=== PATIENT | male | born 1940 | race Caucasian/White ===

== ENCOUNTER 2017-01-06 10:35 | Inpatient (IN) | payer MEDICARE, OTHER ==
--- NOTE | 2017-01-06 10:40 | ED Physician Chart ---
ED Chief Complaint/HPI - Patient Information Date Seen:: 01/06/17 Time Seen:: 10:40 Chief Complaint:: facial twitching History of Present Illness:: 76-year-old male with acute, intermittent, about every 1-2 minutes, severe, facial twitching and chewing that started about 5 AM this morning. Has associated left lateral gaze when the symptoms occur. Patient was given 5 mg of IV med as a lab en route by paramedics for possible seizure. Historian:: EMS, Medical Records Review:: Nurse's Note Reviewed, EMS run form Reviewed, Transfer documents Reviewed ED Review of Systems - Review of Systems Other: Review of systems is limited by patient's clinical condition Family Medical History - Family Member Mother History Unknown: Yes ED Physical Exam - Physical Examination Other:: INITIAL VITAL SIGNS: Reviewed by me GENERAL: Patient is lying on gurney HEAD: Head is normocephalic. No evidence of trauma. No scalp or facial swelling EYES: No scleral icterus bilaterally ENT: Oropharynx is clear of exudate and erythema NECK: Supple. No meningismus. No masses. No evidence of trauma. No cervical spine bony step-offs or crepitus to palpation RESPIRATORY: No tachypnea. Clear to auscultation bilaterally. CV: Regular rate and rhythm. No murmurs, rubs, or gallops ABDOMEN: Soft, non-distended. No masses BACK: No ecchymoses. No evidence of trauma EXTREMITIES: Normal to inspection and palpation. No deformity SKIN: Warm and dry. No obvious rash. No jaundice NEUROLOGIC: Face is symmetric. Withdraws to pain in all extremities. Does have intermittent chewing and slight twitch of the face. Unable to observe lateral gaze that was reported. ED Labs/Radiology/EKG Results - Lab Results Results: Lab Results 01/06/17 01/06/17 01/06/17 Range/Units 10:50 10:50 10:50 WBC 7.4 (4.8-10.8) Th/cmm RBC 2.67 L (3.80-5.80) Mil/cmm Hgb 8.7 L (12.6-17.4) gm/dL Hct 25.6 L (39.0-49.0) % MCV 96.0 (80-99) fl MCH 32.5 H (27.0-31.0) pg MCHC Differential 33.8 (28.0-36.0) pg RDW 13.1 (11.5-20.0) % Plt Count 127 L (150-400) Th/cmm MPV 7.5 fl Band Neutrophils % 2 (0-10) % Neutrophils (Manual) 86 H (40-80) % Lymphocytes 6 L (20-50) % Monocytes 5 (2-10) % Eosinophils 1 (0-5) % Platelet Estimate DECREASED PLATELETS (NORMAL) Platelet Morphology NORMAL (NORMAL) Anisocytosis 1+ RBC Morph Micro Appear ABNORMAL (NORMAL) PT 12.9 H (9.5-11.5) SECONDS INR 1.23 (0.5-1.4) PTT (Actin FS) 37.0 (26.0-38.0) SECONDS Sodium 143 (136-145) mEq/L Potassium 2.3 L* (3.5-5.1) mEq/L Chloride 125 H (98-107) mEq/L Carbon Dioxide 14.8 L (21.0-31.0) mEq/L Anion Gap 5.5 L (7.0-16.0) BUN 12 (7-25) mg/dL Creatinine 0.3 L (0.7-1.3) mg/dL Est GFR ( Amer) TNP Est GFR (Non-Af Amer) TNP BUN/Creatinine Ratio 40.0 Glucose 64 L (70-105) mg/dL Whole Bld Lactic Acid (0.60-1.99) mmol/L Calcium 4.6 L* (8.6-10.3) mg/dL Phosphorus (2.5-5.0) mg/dL Magnesium (1.9-2.7) mg/dL Total Bilirubin 0.3 (0.3-1.0) mg/dL AST 8 L (13-39) U/L ALT 4 L (7-52) U/L Alkaline Phosphatase 30 L (34-104) U/L Creatine Kinase 52 (30-223) U/L Total Protein 3.1 L (6.0-8.3) gm/dL Albumin 1.8 L (4.2-5.5) gm/dL Globulin 1.3 gm/dL Albumin/Globulin Ratio 1.4 (1.0-1.8) Triglycerides (<150) mg/dL Cholesterol (<200) mg/dL LDL Cholesterol Direct (75-193) mg/dL HDL Cholesterol (23-92) mg/dL TSH (0.34-5.60) uIU/ml Urine Source Urine Color Urine Clarity (CLEAR) Urine pH (4.6 - 8.0) Ur Specific [place] (1.005-1.030) Urine Protein (NEGATIVE) mg/dL Urine Glucose (UA) (NEGATIVE) mg/dL Urine Ketones (NEGATIVE) mg/dL Urine Blood (NEGATIVE) Urine Nitrate (NEGATIVE) Urine Bilirubin (NEGATIVE) Urine Urobilinogen (0.2 - 1.0) E.U./dL Ur Leukocyte Esterase (NEGATIVE) Urine RBC (0-5) /hpf Urine WBC (0-5) /hpf Ur Epithelial Cells (FEW) /lpf Urine Bacteria (NONE SEEN) /hpf 01/06/17 01/06/17 01/06/17 Range/Units 10:53 11:05 11:19 WBC (4.8-10.8) Th/cmm RBC (3.80-5.80) Mil/cmm Hgb (12.6-17.4) gm/dL Hct (39.0-49.0) % MCV (80-99) fl MCH (27.0-31.0) pg MCHC Differential (28.0-36.0) pg RDW (11.5-20.0) % Plt Count (150-400) Th/cmm MPV fl Band Neutrophils % (0-10) % Neutrophils (Manual) (40-80) % Lymphocytes (20-50) % Monocytes (2-10) % Eosinophils (0-5) % Platelet Estimate (NORMAL) Platelet Morphology (NORMAL) Anisocytosis RBC Morph Micro Appear (NORMAL) PT (9.5-11.5) SECONDS INR (0.5-1.4) PTT (Actin FS) (26.0-38.0) SECONDS Sodium (136-145) mEq/L Potassium (3.5-5.1) mEq/L Chloride (98-107) mEq/L Carbon Dioxide (21.0-31.0) mEq/L Anion Gap (7.0-16.0) BUN (7-25) mg/dL Creatinine (0.7-1.3) mg/dL Est GFR ( Amer) Est GFR (Non-Af Amer) BUN/Creatinine Ratio Glucose (70-105) mg/dL Whole Bld Lactic Acid 0.95 (0.60-1.99) mmol/L Calcium (8.6-10.3) mg/dL Phosphorus (2.5-5.0) mg/dL Magnesium (1.9-2.7) mg/dL Total Bilirubin (0.3-1.0) mg/dL AST (13-39) U/L ALT (7-52) U/L Alkaline Phosphatase (34-104) U/L Creatine Kinase (30-223) U/L Total Protein (6.0-8.3) gm/dL Albumin (4.2-5.5) gm/dL Globulin gm/dL Albumin/Globulin Ratio (1.0-1.8) Triglycerides 26 (<150) mg/dL Cholesterol 86 (<200) mg/dL LDL Cholesterol Direct 65 L (75-193) mg/dL HDL Cholesterol 25 (23-92) mg/dL TSH (0.34-5.60) uIU/ml Urine Source CATH Urine Color YELLOW Urine Clarity SL. CLOUDY (CLEAR) Urine pH 6.0 (4.6 - 8.0) Ur Specific [place] 1.025 (1.005-1.030) Urine Protein NEGATIVE (NEGATIVE) mg/dL Urine Glucose (UA) NEGATIVE (NEGATIVE) mg/dL Urine Ketones TRACE (NEGATIVE) mg/dL Urine Blood TRACE (NEGATIVE) Urine Nitrate NEGATIVE (NEGATIVE) Urine Bilirubin NEGATIVE (NEGATIVE) Urine Urobilinogen 1.0 (0.2 - 1.0) E.U./dL Ur Leukocyte Esterase TRACE H (NEGATIVE) Urine RBC 2-3 (0-5) /hpf Urine WBC 0-2 (0-5) /hpf Ur Epithelial Cells OCCASIONAL (FEW) /lpf Urine Bacteria NONE SEEN (NONE SEEN) /hpf 01/06/17 01/06/17 01/06/17 Range/Units 11:19 11:59 12:04 WBC (4.8-10.8) Th/cmm RBC (3.80-5.80) Mil/cmm Hgb (12.6-17.4) gm/dL Hct (39.0-49.0) % MCV (80-99) fl MCH (27.0-31.0) pg MCHC Differential (28.0-36.0) pg RDW (11.5-20.0) % Plt Count (150-400) Th/cmm MPV fl Band Neutrophils % (0-10) % Neutrophils (Manual) (40-80) % Lymphocytes (20-50) % Monocytes (2-10) % Eosinophils (0-5) % Platelet Estimate (NORMAL) Platelet Morphology (NORMAL) Anisocytosis RBC Morph Micro Appear (NORMAL) PT (9.5-11.5) SECONDS INR (0.5-1.4) PTT (Actin FS) (26.0-38.0) SECONDS Sodium (136-145) mEq/L Potassium (3.5-5.1) mEq/L Chloride (98-107) mEq/L Carbon Dioxide (21.0-31.0) mEq/L Anion Gap (7.0-16.0) BUN (7-25) mg/dL Creatinine (0.7-1.3) mg/dL Est GFR ( Amer) Est GFR (Non-Af Amer) BUN/Creatinine Ratio Glucose (70-105) mg/dL Whole Bld Lactic Acid (0.60-1.99) mmol/L Calcium (8.6-10.3) mg/dL Phosphorus 1.6 L (2.5-5.0) mg/dL Magnesium 1.2 L (1.9-2.7) mg/dL Total Bilirubin (0.3-1.0) mg/dL AST (13-39) U/L ALT (7-52) U/L Alkaline Phosphatase (34-104) U/L Creatine Kinase (30-223) U/L Total Protein (6.0-8.3) gm/dL Albumin (4.2-5.5) gm/dL Globulin gm/dL Albumin/Globulin Ratio (1.0-1.8) Triglycerides (<150) mg/dL Cholesterol (<200) mg/dL LDL Cholesterol Direct (75-193) mg/dL HDL Cholesterol (23-92) mg/dL TSH 0.39 (0.34-5.60) uIU/ml Urine Source Urine Color Urine Clarity (CLEAR) Urine pH (4.6 - 8.0) Ur Specific [place] (1.005-1.030) Urine Protein (NEGATIVE) mg/dL Urine Glucose (UA) (NEGATIVE) mg/dL Urine Ketones (NEGATIVE) mg/dL Urine Blood (NEGATIVE) Urine Nitrate (NEGATIVE) Urine Bilirubin (NEGATIVE) Urine Urobilinogen (0.2 - 1.0) E.U./dL Ur Leukocyte Esterase (NEGATIVE) Urine RBC (0-5) /hpf Urine WBC (0-5) /hpf Ur Epithelial Cells (FEW) /lpf Urine Bacteria (NONE SEEN) /hpf 01/06/17 Range/Units 12:32 WBC 10.1 D (4.8-10.8) Th/cmm RBC 3.64 L (3.80-5.80) Mil/cmm Hgb 12.0 L D (12.6-17.4) gm/dL Hct 35.3 L D (39.0-49.0) % MCV 97.0 (80-99) fl MCH 33.1 H (27.0-31.0) pg MCHC Differential 34.1 (28.0-36.0) pg RDW 13.1 (11.5-20.0) % Plt Count 159 D (150-400) Th/cmm MPV 7.6 fl Band Neutrophils % (0-10) % Neutrophils (Manual) (40-80) % Lymphocytes (20-50) % Monocytes (2-10) % Eosinophils (0-5) % Platelet Estimate (NORMAL) Platelet Morphology (NORMAL) Anisocytosis RBC Morph Micro Appear (NORMAL) PT (9.5-11.5) SECONDS INR (0.5-1.4) PTT (Actin FS) (26.0-38.0) SECONDS Sodium (136-145) mEq/L Potassium (3.5-5.1) mEq/L Chloride (98-107) mEq/L Carbon Dioxide (21.0-31.0) mEq/L Anion Gap (7.0-16.0) BUN (7-25) mg/dL Creatinine (0.7-1.3) mg/dL Est GFR ( Amer) Est GFR (Non-Af Amer) BUN/Creatinine Ratio Glucose (70-105) mg/dL Whole Bld Lactic Acid (0.60-1.99) mmol/L Calcium (8.6-10.3) mg/dL Phosphorus (2.5-5.0) mg/dL Magnesium (1.9-2.7) mg/dL Total Bilirubin (0.3-1.0) mg/dL AST (13-39) U/L ALT (7-52) U/L Alkaline Phosphatase (34-104) U/L Creatine Kinase (30-223) U/L Total Protein (6.0-8.3) gm/dL Albumin (4.2-5.5) gm/dL Globulin gm/dL Albumin/Globulin Ratio (1.0-1.8) Triglycerides (<150) mg/dL Cholesterol (<200) mg/dL LDL Cholesterol Direct (75-193) mg/dL HDL Cholesterol (23-92) mg/dL TSH (0.34-5.60) uIU/ml Urine Source Urine Color Urine Clarity (CLEAR) Urine pH (4.6 - 8.0) Ur Specific [place] (1.005-1.030) Urine Protein (NEGATIVE) mg/dL Urine Glucose (UA) (NEGATIVE) mg/dL Urine Ketones (NEGATIVE) mg/dL Urine Blood (NEGATIVE) Urine Nitrate (NEGATIVE) Urine Bilirubin (NEGATIVE) Urine Urobilinogen (0.2 - 1.0) E.U./dL Ur Leukocyte Esterase (NEGATIVE) Urine RBC (0-5) /hpf Urine WBC (0-5) /hpf Ur Epithelial Cells (FEW) /lpf Urine Bacteria (NONE SEEN) /hpf - Radiology Results Results: Single AP VIEW Portable Chest X-ray was interpreted independently and contemporaneously by Sj Mendez MD: No cardiomegaly Normal mediastinum No lung infiltrates No pneumothorax No soft tissue or bony abnormalities CT head without contrast NAD CT angiogram head NAD CT angiogram neck NAD - EKG Interpretations Comments:: 12-lead EKG Interpretation by Sj Mendez MD: Normal Sinus Rhythm with ventricular rate of 74 beats per minute Normal axis Borderline prolonged QT interval No acute ST or T wave changes. No obvious STEMI ED Assessment - Assessment Critical Care Time: 30 Excludes all billable procedures: Yes This condition life threatening/high prob of deterioration: Yes Assessment/Comments:: Critical Care Time: 30 minutes Treatments/Evaluations: Close monitoring and treatment of unstable vital signs, cardiorespiratory, and neurologic status, while maintaining tight balance of fluid, respiratory, and cardiac interventions. This time includes discussing the case with the patient and the patient's family. This time does not include all procedures stated elsewhere in this record. This time also includes reviewing old records, labs and radiological studies. This time includes examining and re-examining the patient. Additionally, this time also includes arranging care with admitting and consulting physicians. ED Septic Shock - . Is Septic Shock (SBP<90, OR Lactate>4 mmol\L) present?: No ED Reassessment (Disposition) - Reassessment Reassessment:: Patient arrived by paramedics. He received 5 mg of IV diazepam and some IV normal saline. There was still some intermittent facial twitching and chewing motion. No observation of the lateral gaze could be made here in the ER. The patient apparently normal has a baseline mental status where he is able to answer yes and no questions, however, on arrival he is averbal. His vital signs are good. Symptoms were first noticed at 5 AM this morning. He has arrived over 4-1/2 hours after onset of symptoms: Symptoms were first noticed. He is out of the TPA window at this time. Patient had temperature of 101.3 degrees Fahrenheit. Gave 650 mg of rectal Tylenol. Patient is severely hypocalcemic and hypomagnesemic. Also has anemia with hemoglobin 8.7. Potassium is 2.3. Magnesium 1.2. The patient has symptomatic hypocalcemia with tetany and jaw twitching. CT imaging of the head and neck and carotids are essentially unremarkable. Repeat hemoglobin showed some improvement. No concern for hemolytic anemia. This patient has multiple sclerosis. He has a fever. There is no infective source. Difficult to obtain a good history from the patient and he is altered and could not speak to us. Appears to be an exacerbation of his multiple sclerosis. The fevers would make sense with a multiple sclerosis exacerbation. The patient is taking prednisone every other day. We have given one dose of 1 g of IV Solu-Medrol. We are also giving 1 g of IV Rocephin for possible UTI. We will also administer 2 g of IV magnesium. 2 g of IV calcium gluconate and 40 mEq of IV potassium. Patient will need further workup and treatment. Discussed the case in detail with the admitting physician. Patient admitted for further workup and treatment. Given the severity of the hypokalemia and hypocalcemia and other electrolyte disturbances, this patient was at high risk for sudden cardiac deterioration and ultimately cardiac failure. There was need for critical care time on this patient. There was a total of 30 minutes of critical care time on this patient. Reassessment Condition:: Improved - Diagnosis Diagnosis:: Multiple sclerosis exacerbation Severe hypocalcemia Severe hypokalemia Hypophosphatemia Hypomagnesemia Fever - Patient Disposition Discharge/Transfer:: Acute Care w/in this hosp Admitted to:: Telemetry Admitting Medical Physician:: Antoni Tucker Time:: 12:42 Condition at Disposition:: Stable
[2017-01-06] MEDS ORDERED: Sodium Chloride 0.9% 1,000 ML IV ONE (10:44)
[2017-01-06 11:05] LABS: HEMATOCRIT 25.6 % (39.0-49.0); HEMOGLOBIN 8.7 gm/dL (12.6-17.4); MEAN CORPUSCULAR HEMOGLOBIN 32.5 pg (27.0-31.0); MEAN CORPUSCULAR HGB CONC 33.8 pg (28.0-36.0); MEAN PLATELET VOLUME 7.5 fl; PLATELET COUNT 127 Th/cmm (150-400); RED BLOOD COUNT 2.67 Mil/cmm (3.80-5.80); RED CELL DISTRIBUTION WIDTH 13.1 % (11.5-20.0); WHITE BLOOD COUNT 7.4 Th/cmm (4.8-10.8)
[2017-01-06] MEDS ORDERED: Potassium Phosphate 20 MMOLE in Sodium Chloride 0.9% 250 ML IV ONE (11:17)
[2017-01-06] MEDS ORDERED: POTASSIUM PHOSPHATE IV ONE (11:17)
[2017-01-06] MEDS ORDERED: SODIUM CHLORIDE IV ONE (11:17)
[2017-01-06 11:21] LABS: INR 1.23 (0.5-1.4); PROTHROMBIN TIME (TEST) 12.9 SECONDS (9.5-11.5)
[2017-01-06 11:23] LABS: URINE BILIRUBIN NEGATIVE (NEGATIVE); URINE BLOOD TRACE (NEGATIVE); URINE GLUCOSE (UA) NEGATIVE (NEGATIVE); URINE KETONE TRACE mg/dL (NEGATIVE); URINE PROTEIN NEGATIVE (NEGATIVE)
[2017-01-06 11:24] LABS: URINE COLOR YELLOW
[2017-01-06 11:25] LABS: ALB/GLOB RATIO 1.4 (1.0-1.8); ALKALINE PHOSPHATASE 30 U/L (34-104); ANION GAP 5.5 (7.0-16.0); BILIRUBIN,TOTAL 0.3 mg/dL (0.3-1.0); BUN - UREA NITROGEN 12 mg/dL (7-25); CALCIUM SERUM 4.6 mg/dL (8.6-10.3); CARBON DIOXIDE 14.8 mEq/L (21.0-31.0); CHLORIDE 125 mEq/L (98-107); CREATININE - SERUM 0.3 mg/dL (0.7-1.3); GLUCOSE 64 mg/dL (70-105); POTASSIUM SERUM 2.3 mEq/L (3.5-5.1); SGOT 8 U/L (13-39); SGPT/ALT 4 U/L (7-52); SODIUM SERUM 143 mEq/L (136-145)
[2017-01-06 11:28] LABS: URINE BACTERIA NONE SEEN /hpf (NONE SEEN); URINE EPITHELIAL CELLS OCCASIONAL /lpf (FEW); URINE WBC 0-2 /hpf (0-5)
[2017-01-06] MEDS ORDERED: IOHEXOL 300MG/ML 100 ML VIAL ONE (11:28)
[2017-01-06 11:32] LABS: CHOLESTEROL 86 mg/dL (<200); TRIGLYCERIDES 26 mg/dL (<150)
[2017-01-06 11:32] LABS: ANISOCYTOSIS 1+; BAND NEUTROPHILE 2 % (0-10); EOSINOPHIL 1 % (0-5); NEUTROPHILS 86 % (40-80); PLATELET ESTIMATE DECREASED PLATELETS (NORMAL); PLATELET MORPHOLOGY NORMAL (NORMAL); TOTAL CELLS COUNTED 100
[2017-01-06] MEDS ORDERED: IOHEXOL 350mg/mL 150mL IV ONE (11:41)
[2017-01-06] MEDS ORDERED: Mag Sulfate 2gm/50mL Premix 2 GM/50 ML BAG IV ONE (12:00)
[2017-01-06] MEDS ORDERED: Calcium Gluconate 2 GM in Sodium Chloride 0.9% 100 ML IV ONE (12:12)
[2017-01-06] MEDS ORDERED: cefTRIAXone 1 GM in Sodium Chloride 0.9% 50 ML IV ONE (12:20)
[2017-01-06] MEDS ORDERED: METHYLPREDNISOLONE SS IV ONE (12:22)
[2017-01-06] MEDS ORDERED: SODIUM CHLORIDE 0.9% IV ONE (12:22)
[2017-01-06 12:37] LABS: MEAN CORPUSCULAR HEMOGLOBIN 33.1 pg (27.0-31.0); MEAN CORPUSCULAR HGB CONC 34.1 pg (28.0-36.0); MEAN PLATELET VOLUME 7.6 fl; RED BLOOD COUNT 3.64 Mil/cmm (3.80-5.80); RED CELL DISTRIBUTION WIDTH 13.1 % (11.5-20.0)
[2017-01-06 12:42] LABS: WHITE BLOOD COUNT 10.1 Th/cmm (4.8-10.8)
[2017-01-06 12:43] LABS: HEMATOCRIT 35.3 % (39.0-49.0); PLATELET COUNT 159 Th/cmm (150-400)
--- NOTE | 2017-01-06 12:45 | Diagnostic Imaging Report ---
CT examination of the brain HISTORY: Facial which in left lateral gaze Total DLP equals 625 CTDI equals 34.8 Findings: Multiple contiguous thin section of the brain were obtained from the base of skull to the vertex without the administration of contrast material, no prior studies available for comparison. The study demonstrates prominence of cerebral sulci consistent with atrophy, periventricular ischemic white matter changes are noted. There is no evidence for hemorrhage midline shift or edema The visualized bony calvarium is intact the paranasal sinuses are well aerated. IMPRESSION: Atrophy, periventricular ischemic white matter changes long-standing etiology.
--- NOTE | 2017-01-06 12:58 | Diagnostic Imaging Report ---
Exam: CT carotid angiogram HISTORY: CVA, lateral gaze. Total DLP equals 235 CTDI equals 6.3 Findings: Multiple contiguous thin section of the extracranial/intracranial internal carotid artery circulation was obtained with administration of contrast material. The study demonstrates normal appearance of the common carotid arteries with normal external/internal carotid bifurcation no evidence for significant stenosis appreciated. The right vertebral arteries intact. The left vertebral arteries poorly visualized. Posterior communicating arteries are poorly seen The intracranial circulation appears to be normal. There is no evidence for cerebral lesions, mild atrophy is noted. There is normal appearance of the [place] of [place] of the anterior communicating arteries are poorly seen. If clinically indicated MRI examination might be helpful. IMPRESSION: 1. Essentially unremarkable examination of the extracranial carotid circulation, normal internal/external, carotid artery bifurcation.
[2017-01-06 13:42] LABS: BAND NEUTROPHILE 1 % (0-10); NEUTROPHILS 78 % (40-80); TOTAL CELLS COUNTED 100
[2017-01-06 13:43] LABS: ANISOCYTOSIS 1+; PLATELET ESTIMATE ADEQUATE (NORMAL); PLATELET MORPHOLOGY NORMAL (NORMAL)
--- NOTE | 2017-01-06 13:54 | Diagnostic Imaging Report ---
Exam: CT examination abdomen pelvis HISTORY: Abdominal pain Total DLP equals 739 CTDI equals 14.6 Findings: Multiple contiguous thin section abdomen pelvis obtained from lower thorax to the symphysis without the administration of the oral contrast material. Intravenous contrast was utilized. No prior studies available comparison. The study demonstrates normal aeration of lung parenchyma the bases The liver and spleen are normal. The kidneys concentrate and excrete contrast material normal fashion. Thinning of the renal cortex appreciated bilaterally may renal disease cannot be excluded. The adrenal glands are normal. The gallbladder is distended common bile duct distended up 6 mm No free fluid is noted. The pancreas poorly seen. There is evidence for significant distention of the colon with fecal impaction of the rectosigmoid junction and rectum. No urinary bladder is intact. Proximal distention small bowel large bowel loops distended with air appreciated. The urinary bladder demonstrates thickening of the bladder wall. Intraluminal calcification cannot be excluded area Prostate gland is enlarged. No abnormal adenopathy is noted. No free fluid appreciated. Bony structures demonstrate no evidence for lytic or blastic structures. Degenerative changes of lumbar sacral spine appreciated. IMPRESSION: 1. Severe fecal impaction the rectosigmoid junction and rectum. 2. Distention of proximal small bowel large bowel loops with air. 3. Distended gallbladder and common bile duct. Clinical correlation recommended.
[2017-01-06] MEDS ORDERED: Magnesium Hydroxide (MOM) 30 mL UDC PO PRN (14:58)
[2017-01-06] MEDS ORDERED: D5-0.45NS 1,000 ML IV SCH (14:58)
[2017-01-06] MEDS ORDERED: Albuterol/Ipratropium Neb 3 ML AERS HHN PRN (14:58)
[2017-01-06] MEDS: D5-0.45NS 1,000 ML IV SCH (15:21)
[2017-01-06] MEDS ORDERED: Non-Formulary Item 1 EA (Dextran 70/Hypromellose [Artificial Tears] 1 DROP) EACH EYE SCH (17:00)
[2017-01-06] MEDS ORDERED: Non-Formulary Item 1 EA (Amino Acids/Protein Hydrolys [Pro-Stat Awc Liquid Packet] 30 ML) PO SCH (17:00)
[2017-01-06 20:18] LABS: ALB/GLOB RATIO 1.7 (1.0-1.8); ALKALINE PHOSPHATASE 51 U/L (34-104); BUN - UREA NITROGEN 17 mg/dL (7-25); BUN/CREATININE RATIO 24.3; CALCIUM SERUM 8.4 mg/dL (8.6-10.3); CARBON DIOXIDE 21.3 mEq/L (21.0-31.0); CHLORIDE 110 mEq/L (98-107); CREATININE - SERUM 0.7 mg/dL (0.7-1.3); GLUCOSE 100 mg/dL (70-105); PHOSPHOROUS 4.1 mg/dL (2.5-5.0); SGOT 13 U/L (13-39); SGPT/ALT 9 U/L (7-52); SODIUM SERUM 137 mEq/L (136-145)
[2017-01-06 20:25] LABS: POTASSIUM SERUM 4.3 mEq/L (3.5-5.1)
[2017-01-06] MEDS: methylPREDNISolone SS 40 mg Vial IVP SCH (20:32)
[2017-01-07] MEDS: methylPREDNISolone SS 40 mg Vial IVP SCH ×3 (05:47→21:38)
--- NOTE | 2017-01-07 07:39 | History and Physical ---
History of Present Illness - HPI Chief Complaint: Facial Twitching HPI: 76 year old male who presents to [facility] ER from SNF for intermittent facial twitching and chewing that occurred yesterday prior to admission. The patient has a history of Multiple Sclerosis, dementia, and constipation. While in the ER patient was found to have several electrolyte imbalances. K+ 2.3. Hemoglobin 8.7 calcium 4.6 phosphorus 1.6 and Magnesium 1.2. She was given IV supplementation in the ER and was subsequently transferred to [facility] for further treatment. Patient was noted to be Altered. 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 unable to state due to mental status Social History Smoke: No Alcohol: None Drugs: None Lives: Alone - Medications Home Medications: Home Medication Medication Instructions Recorded Type Albuterol/Ipratropium Neb [Duoneb 3 ml HHN Q6HR PRN 01/06/17 History Neb] Amino Acids/Protein Hydrolys 30 ml PO BID 01/06/17 History [Pro-Stat Sugar Free Awc 30 ml] Ascorbic Acid [Vitamin C] 500 mg PO DAILY 01/06/17 History Bisacodyl [Dulcolax] 10 mg RC DAILY PRN 01/06/17 History Calcium Carb/Vit D 500mg/200U 1 tab PO DAILY 01/06/17 History [Oscal w/Vitamin D] Cyanocobalamin (Vitamin B-12) 500 mcg PO DAILY 01/06/17 History [B-12] Dextran 70/Hypromellose 1 drop EACH EYE BID 01/06/17 History [Artificial Tears] Docusate Sodium [Colace] 100 mg PO DAILY 01/06/17 History Magnesium Hydroxide [Milk of 30 ml PO Q6H PRN 01/06/17 History Magnesia] Multivitamin [Theragran] 1 tab PO DAILY 01/06/17 History Potassium Chloride ER [Klor-Con] 20 meq PO DAILY 01/06/17 History predniSONE [Deltasone] 5 mg PO Q48HR 01/06/17 History - Allergies Allergies/Adverse Reactions: Allergies Allergy/AdvReac Type Severity Reaction Status Date / Time No Known Allergies Allergy Verified 01/06/17 10:53 Review of Systems - Review of Systems Constitutional: Report: No Significant Eyes: Report: No Significant ENT: Report: No Significant Respiratory: Report: No Significant Cardiovascular: Report: No Significant Gastrointestinal: Report: No Significant Genitourinary: Report: No Significant Musculoskeletal: Report: No Significant Skin: Report: No Significant Neurological: Report: Weakness - Lab Results All Lab Results last 24 hours: Laboratory Last Values WBC 10.1 Th/cmm (4.8-10.8) D 01/06/17 12:32 RBC 3.64 Mil/cmm (3.80-5.80) L 01/06/17 12:32 Hgb 12.0 gm/dL (12.6-17.4) L D 01/06/17 12:32 Hct 35.3 % (39.0-49.0) L D 01/06/17 12:32 MCV 97.0 fl (80-99) 01/06/17 12:32 MCH 33.1 pg (27.0-31.0) H 01/06/17 12:32 MCHC Differential 34.1 pg (28.0-36.0) 01/06/17 12:32 RDW 13.1 % (11.5-20.0) 01/06/17 12:32 Plt Count 159 Th/cmm (150-400) D 01/06/17 12:32 MPV 7.6 fl 01/06/17 12:32 Band Neutrophils % 1 % (0-10) 01/06/17 12:32 Neutrophils (Manual) 78 % (40-80) 01/06/17 12:32 Lymphocytes 13 % (20-50) L 01/06/17 12:32 Monocytes 8 % (2-10) 01/06/17 12:32 Eosinophils 1 % (0-5) 01/06/17 10:50 Platelet Estimate ADEQUATE (NORMAL) 01/06/17 12:32 Platelet Morphology NORMAL (NORMAL) 01/06/17 12:32 Anisocytosis 1+ 01/06/17 12:32 RBC Morph Micro Appear ABNORMAL (NORMAL) 01/06/17 12:32 PT 12.9 SECONDS (9.5-11.5) H 01/06/17 10:50 INR 1.23 (0.5-1.4) 01/06/17 10:50 PTT (Actin FS) 37.0 SECONDS (26.0-38.0) 01/06/17 10:50 Sodium 137 mEq/L (136-145) 01/06/17 20:00 Potassium 4.3 mEq/L (3.5-5.1) D 01/06/17 20:00 Chloride 110 mEq/L (98-107) H 01/06/17 20:00 Carbon Dioxide 21.3 mEq/L (21.0-31.0) 01/06/17 20:00 Anion Gap 10.0 (7.0-16.0) 01/06/17 20:00 BUN 17 mg/dL (7-25) 01/06/17 20:00 Creatinine 0.7 mg/dL (0.7-1.3) 01/06/17 20:00 Est GFR ( Amer) TNP 01/06/17 20:00 Est GFR (Non-Af Amer) TNP 01/06/17 20:00 BUN/Creatinine Ratio 24.3 01/06/17 20:00 Glucose 100 mg/dL (70-105) 01/06/17 20:00 POC Glucose 92 MG/DL (70 - 105) 01/06/17 15:04 Whole Bld Lactic Acid 0.95 mmol/L (0.60-1.99) 01/06/17 10:53 Calcium 8.4 mg/dL (8.6-10.3) L 01/06/17 20:00 Phosphorus 4.1 mg/dL (2.5-5.0) 01/06/17 20:00 Magnesium 2.8 mg/dL (1.9-2.7) H 01/06/17 20:00 Total Bilirubin 1.0 mg/dL (0.3-1.0) 01/06/17 20:00 AST 13 U/L (13-39) 01/06/17 20:00 ALT 9 U/L (7-52) 01/06/17 20:00 Alkaline Phosphatase 51 U/L (34-104) 01/06/17 20:00 Creatine Kinase 52 U/L (30-223) 01/06/17 10:50 Total Protein 5.3 gm/dL (6.0-8.3) L 01/06/17 20:00 Albumin 3.3 gm/dL (4.2-5.5) L 01/06/17 20:00 Globulin 2.0 gm/dL 01/06/17 20:00 Albumin/Globulin Ratio 1.7 (1.0-1.8) 01/06/17 20:00 Triglycerides 26 mg/dL (<150) 01/06/17 11:19 Cholesterol 86 mg/dL (<200) 01/06/17 11:19 LDL Cholesterol Direct 65 mg/dL (75-193) L 01/06/17 11:19 HDL Cholesterol 25 mg/dL (23-92) 01/06/17 11:19 TSH 0.39 uIU/ml (0.34-5.60) 01/06/17 11:59 Urine Source CATH 01/06/17 11:05 Urine Color YELLOW 01/06/17 11:05 Urine Clarity SL. CLOUDY (CLEAR) 01/06/17 11:05 Urine pH 6.0 (4.6 - 8.0) 01/06/17 11:05 Ur Specific [place] 1.025 (1.005-1.030) 01/06/17 11:05 Urine Protein NEGATIVE mg/dL (NEGATIVE) 01/06/17 11:05 Urine Glucose (UA) NEGATIVE mg/dL (NEGATIVE) 01/06/17 11:05 Urine Ketones TRACE mg/dL (NEGATIVE) 01/06/17 11:05 Urine Blood TRACE (NEGATIVE) 01/06/17 11:05 Urine Nitrate NEGATIVE (NEGATIVE) 01/06/17 11:05 Urine Bilirubin NEGATIVE (NEGATIVE) 01/06/17 11:05 Urine Urobilinogen 1.0 E.U./dL (0.2 - 1.0) 01/06/17 11:05 Ur Leukocyte Esterase TRACE (NEGATIVE) H 01/06/17 11:05 Urine RBC 2-3 /hpf (0-5) 01/06/17 11:05 Urine WBC 0-2 /hpf (0-5) 01/06/17 11:05 Ur Epithelial Cells OCCASIONAL /lpf (FEW) 01/06/17 11:05 Urine Bacteria NONE SEEN /hpf (NONE SEEN) 01/06/17 11:05 Laboratory Results - last 24 hr 01/06/17 01/06/17 01/06/17 15:04 20:00 20:00 Sodium 137 Potassium 4.3 D Chloride 110 H Carbon Dioxide 21.3 Anion Gap 10.0 BUN 17 Creatinine 0.7 Est GFR ( Amer) TNP Est GFR (Non-Af Amer) TNP BUN/Creatinine Ratio 24.3 Glucose 100 POC Glucose 92 Calcium 8.4 L Phosphorus 4.1 Magnesium 2.8 H Total Bilirubin 1.0 AST 13 ALT 9 Alkaline Phosphatase 51 Total Protein 5.3 L Albumin 3.3 L Globulin 2.0 Albumin/Globulin Ratio 1.7 - Assessment Assessment: ALOC ... will order MRI head, CT head NAD, CT carotid NAD, neurology consult Acute MS exacerbation hypokalemia ... improved. K+ 4.3 hypocalcemia ... improved Ca+ hypophosphotemia ... improved Ph 4.1 hypomagnesemia ... improved Mg 2.8 dementia constipation ... GI consult. - Plan Plan: ALOC ... will order MRI head, CT head NAD, CT carotid NAD, neurology consult Acute MS exacerbation hypokalemia ... improved. K+ 4.3 hypocalcemia ... improved Ca+ hypophosphotemia ... improved Ph 4.1 hypomagnesemia ... improved Mg 2.8 dementia constipation ... GI consult.
--- NOTE | 2017-01-07 08:17 | Diagnostic Imaging Report ---
Exam: Chest portable HISTORY: Pain Findings: Portable upright examination of the chest at 1243 hours reviewed, no prior studies available for comparison. Bony thorax intact. Mediastinal structures midline. The heart is not enlarged. Mild congestion cannot excluded. The costophrenic angles are clear. COPD changes are noted There is evidence for significant distention of bowel loops in the diaphragm. Clinical correlation and KUB of the abdomen is recommended. IMPRESSION: 1. Question of mild congestion, COPD changes with. 2. Elevation of the diaphragm with distended bowel.
[2017-01-07] MEDS ORDERED: Fleet Enema 135 mL RC ONE (08:18)
[2017-01-07] MEDS ORDERED: Multivitamin Tab PO SCH (09:00)
[2017-01-07] MEDS ORDERED: Calcium Carb/Vit D 500 mg/200 U Tab PO SCH (09:00)
[2017-01-07] MEDS ORDERED: CYANOCOBALAMIN 500 MCG PO SCH (09:00)
[2017-01-07] MEDS ORDERED: Potassium Chloride 20 mEq ER Tab PO SCH (09:00)
[2017-01-07] MEDS: Polyvinyl Alcohol Ophth Soln 15 mL Bottle EACH EYE SCH ×2 (09:22→16:09)
[2017-01-07] MEDS: Potassium Chloride 20 mEq ER Tab PO SCH (09:23)
[2017-01-07] MEDS: Calcium Carb/Vit D 500 mg/200 U Tab PO SCH (09:23)
[2017-01-07] MEDS: Multivitamin w/ Minerals Tab PO SCH (09:23)
[2017-01-07] MEDS ORDERED: VTE Chemical Prophylaxis Screen/Admission MC PRN (11:11)
--- NOTE | 2017-01-07 12:34 | Consultation ---
DATE OF CONSULTATION: 01/07/2017 REASON FOR CONSULT: Change in bowel habits, abdominal distention, abnormal imaging of the abdomen. HISTORY OF PRESENT ILLNESS: This is a 76-year-old male with past medical history significant for multiple sclerosis, dementia, constipation, who was found to have altered mental status from his facility and was brought in for further evaluation. The patient was found to have severe electrolyte abnormalities. Imaging was also suggestive of fecal impaction with distention of the colon and distention of the small and large bowel. The patient also noted to have distention of the gallbladder and common bile duct as well. PAST MEDICAL HISTORY: Per HPI. PAST SURGICAL HISTORY: As per HPI. FAMILY HISTORY: No family history of GI malignancies. SOCIAL HISTORY: No recent tobacco, alcohol, or drugs. MEDICATIONS: Please see medication reconciliation form. ALLERGIES: No known drug allergies. REVIEW OF SYSTEMS: Unable to obtain given the patient's mental status. PHYSICAL EXAMINATION: VITAL SIGNS: Temperature is 98, pulse 78, respirations 18, blood pressure 106/71, pulse ox 96%. GENERAL: No acute distress. CARDIOVASCULAR: Regular rhythm. ABDOMEN: Soft. EXTREMITIES: No deformities. LABORATORY DATA: White count 10.1, hemoglobin 12, platelets 159. Initial potassium was 2.3. Initial calcium is 4.6, total bilirubin is 0.3, AST is ____, ALT is ____. Abdominal pelvic CT shows severe fecal impaction in the rectosigmoid junction of rectum, distention of proximal small bowel and large bowel ____ distended gallbladder and common bile duct. ASSESSMENT AND PLAN: A 76-year-old male presenting with severe electrolyte imbalances, altered mental status, fecal impaction and possible distention of the gallbladder and common bile duct. The patient's severe electrolyte abnormalities may in part be due to severe constipation. We will give Fleet enema for the fecal impaction and also obtain HIDA scan for further evaluation of the distended gallbladder. LFTs are normal currently. Expect symptoms to improve with resolution of the electrolyte imbalances as well. Thank you for this consult Dr. Tucker and allowing me to participate in the care of this patient. [facility]# [id number]
[2017-01-07] MEDS: D5-0.45NS 1,000 ML IV SCH (16:04)
[2017-01-08] MEDS: methylPREDNISolone SS 40 mg Vial IVP SCH (05:31)
[2017-01-08 06:15] LABS: HEMATOCRIT 35.8 % (39.0-49.0); HEMOGLOBIN 12.3 gm/dL (12.6-17.4); MEAN CELL VOLUME 95.4 fl (80-99); MEAN CORPUSCULAR HEMOGLOBIN 32.7 pg (27.0-31.0); MEAN CORPUSCULAR HGB CONC 34.3 pg (28.0-36.0); MEAN PLATELET VOLUME 8.5 fl; PLATELET COUNT 139 Th/cmm (150-400); RED BLOOD COUNT 3.76 Mil/cmm (3.80-5.80); WHITE BLOOD COUNT 12.3 Th/cmm (4.8-10.8)
[2017-01-08 06:31] LABS: ALB/GLOB RATIO 1.6 (1.0-1.8); ALKALINE PHOSPHATASE 44 U/L (34-104); ANION GAP 7.2 (7.0-16.0); BILIRUBIN,TOTAL 0.7 mg/dL (0.3-1.0); BUN - UREA NITROGEN 31 mg/dL (7-25); BUN/CREATININE RATIO 44.3; CALCIUM SERUM 8.1 mg/dL (8.6-10.3); CARBON DIOXIDE 23.9 mEq/L (21.0-31.0); CHLORIDE 108 mEq/L (98-107); CREATININE - SERUM 0.7 mg/dL (0.7-1.3); GLUCOSE 148 mg/dL (70-105); MAGNESIUM 2.5 mg/dL (1.9-2.7); POTASSIUM SERUM 4.1 mEq/L (3.5-5.1); SGOT 13 U/L (13-39); SGPT/ALT 8 U/L (7-52); SODIUM SERUM 135 mEq/L (136-145)
[2017-01-08 07:00] LABS: TOTAL CELLS COUNTED 100
[2017-01-08 07:02] LABS: BAND NEUTROPHILE 2 % (0-10); NEUTROPHILS 82 % (40-80)
[2017-01-08 07:04] LABS: PLATELET ESTIMATE ADEQUATE (NORMAL)
[2017-01-08] MEDS: Calcium Carb/Vit D 500 mg/200 U Tab PO SCH (08:10)
[2017-01-08] MEDS: Potassium Chloride 20 mEq ER Tab PO SCH (08:11)
[2017-01-08] MEDS: Multivitamin w/ Minerals Tab PO SCH (08:11)
[2017-01-08] MEDS: Polyvinyl Alcohol Ophth Soln 15 mL Bottle EACH EYE SCH ×2 (08:22→16:39)
[2017-01-08] MEDS ORDERED: Atropine Sulfate 1 mg/mL 1 mL Vial IVP PRN (08:33)
--- NOTE | 2017-01-08 08:40 | General Progress Note ---
Subjective - Review of Systems Service Date: 01/08/17 Subjective: Patient is awake, alert, no acute distress. Has sinus bradycardia today with HR' s in 40's or 30's. Will obtain Cardiology consult. aphasic Objective - Results Result Diagrams: 01/08/17 05:17 01/08/17 05:17 Recent Labs: Laboratory Last Values WBC 12.3 Th/cmm (4.8-10.8) H D 01/08/17 05:17 RBC 3.76 Mil/cmm (3.80-5.80) L 01/08/17 05:17 Hgb 12.3 gm/dL (12.6-17.4) L 01/08/17 05:17 Hct 35.8 % (39.0-49.0) L 01/08/17 05:17 MCV 95.4 fl (80-99) 01/08/17 05:17 MCH 32.7 pg (27.0-31.0) H 01/08/17 05:17 MCHC Differential 34.3 pg (28.0-36.0) 01/08/17 05:17 RDW 13.0 % (11.5-20.0) 01/08/17 05:17 Plt Count 139 Th/cmm (150-400) L 01/08/17 05:17 MPV 8.5 fl 01/08/17 05:17 Band Neutrophils % 2 % (0-10) 01/08/17 05:17 Neutrophils (Manual) 82 % (40-80) H 01/08/17 05:17 Lymphocytes 8 % (20-50) L 01/08/17 05:17 Monocytes 8 % (2-10) 01/08/17 05:17 Eosinophils 1 % (0-5) 01/06/17 10:50 Platelet Estimate ADEQUATE (NORMAL) 01/08/17 05:17 Platelet Morphology NORMAL (NORMAL) 01/06/17 12:32 Anisocytosis 1+ 01/06/17 12:32 RBC Morph Micro Appear ABNORMAL (NORMAL) 01/06/17 12:32 PT 12.9 SECONDS (9.5-11.5) H 01/06/17 10:50 INR 1.23 (0.5-1.4) 01/06/17 10:50 PTT (Actin FS) 37.0 SECONDS (26.0-38.0) 01/06/17 10:50 Sodium 135 mEq/L (136-145) L 01/08/17 05:17 Potassium 4.1 mEq/L (3.5-5.1) 01/08/17 05:17 Chloride 108 mEq/L (98-107) H 01/08/17 05:17 Carbon Dioxide 23.9 mEq/L (21.0-31.0) 01/08/17 05:17 Anion Gap 7.2 (7.0-16.0) 01/08/17 05:17 BUN 31 mg/dL (7-25) H 01/08/17 05:17 Creatinine 0.7 mg/dL (0.7-1.3) 01/08/17 05:17 Est GFR ( Amer) TNP 01/08/17 05:17 Est GFR (Non-Af Amer) TNP 01/08/17 05:17 BUN/Creatinine Ratio 44.3 01/08/17 05:17 Glucose 148 mg/dL (70-105) H 01/08/17 05:17 POC Glucose 92 MG/DL (70 - 105) 01/06/17 15:04 Whole Bld Lactic Acid 0.95 mmol/L (0.60-1.99) 01/06/17 10:53 Calcium 8.1 mg/dL (8.6-10.3) L 01/08/17 05:17 Phosphorus 3.0 mg/dL (2.5-5.0) 01/08/17 05:17 Magnesium 2.5 mg/dL (1.9-2.7) 01/08/17 05:17 Total Bilirubin 0.7 mg/dL (0.3-1.0) 01/08/17 05:17 AST 13 U/L (13-39) 01/08/17 05:17 ALT 8 U/L (7-52) 01/08/17 05:17 Alkaline Phosphatase 44 U/L (34-104) 01/08/17 05:17 Creatine Kinase 52 U/L (30-223) 01/06/17 10:50 Total Protein 5.1 gm/dL (6.0-8.3) L 01/08/17 05:17 Albumin 3.1 gm/dL (4.2-5.5) L 01/08/17 05:17 Globulin 2.0 gm/dL 01/08/17 05:17 Albumin/Globulin Ratio 1.6 (1.0-1.8) 01/08/17 05:17 Triglycerides 26 mg/dL (<150) 01/06/17 11:19 Cholesterol 86 mg/dL (<200) 01/06/17 11:19 LDL Cholesterol Direct 65 mg/dL (75-193) L 01/06/17 11:19 HDL Cholesterol 25 mg/dL (23-92) 01/06/17 11:19 TSH 0.39 uIU/ml (0.34-5.60) 01/06/17 11:59 Urine Source CATH 01/06/17 11:05 Urine Color YELLOW 01/06/17 11:05 Urine Clarity SL. CLOUDY (CLEAR) 01/06/17 11:05 Urine pH 6.0 (4.6 - 8.0) 01/06/17 11:05 Ur Specific [place] 1.025 (1.005-1.030) 01/06/17 11:05 Urine Protein NEGATIVE mg/dL (NEGATIVE) 01/06/17 11:05 Urine Glucose (UA) NEGATIVE mg/dL (NEGATIVE) 01/06/17 11:05 Urine Ketones TRACE mg/dL (NEGATIVE) 01/06/17 11:05 Urine Blood TRACE (NEGATIVE) 01/06/17 11:05 Urine Nitrate NEGATIVE (NEGATIVE) 01/06/17 11:05 Urine Bilirubin NEGATIVE (NEGATIVE) 01/06/17 11:05 Urine Urobilinogen 1.0 E.U./dL (0.2 - 1.0) 01/06/17 11:05 Ur Leukocyte Esterase TRACE (NEGATIVE) H 01/06/17 11:05 Urine RBC 2-3 /hpf (0-5) 01/06/17 11:05 Urine WBC 0-2 /hpf (0-5) 01/06/17 11:05 Ur Epithelial Cells OCCASIONAL /lpf (FEW) 01/06/17 11:05 Urine Bacteria NONE SEEN /hpf (NONE SEEN) 01/06/17 11:05 - Physical Exam Vitals and I&O: Vital Signs Temp 98.2 F 01/08/17 04:00 Pulse 43 01/08/17 04:00 Resp 18 01/08/17 04:00 BP 98/58 01/08/17 04:00 Pulse Ox 96 01/08/17 04:00 Intake & Output 01/07/17 01/08/17 01/08/17 18:59 06:59 18:59 Intake Total 1000 Balance 1000 Weight (lbs) 69.49 kg Intake: Intake, IV Amount 1000 D5-0.45NS 1,000 ml @ 50 1000 mls/hr IV .Q20H [facility] Rx#: [id number] Other: # Bowel Movements 0 Active Medications: Current Medications Artificial Tears (Artificial Tears Ophth Soln) 1 drop EACH EYE BID LIZY Stop: 03/08/17 08:59 Last Admin: 01/08/17 08:22 Dose: 1 drop Ascorbic Acid (Vitamin C) 500 mg PO DAILY LI[facility] Stop: 03/08/17 08:59 Last Admin: 01/08/17 08:10 Dose: Not Given Atropine Sulfate (Atropine) 1 mg IVP Q4HR PRN PRN Reason: HR<40 Stop: 03/09/17 08:32 Bisacodyl (Dulcolax 10 Mg Supp) 10 mg RC DAILY PRN PRN Reason: Constipation Stop: 03/07/17 17:05 Calcium/Vitamin D (Oscal W/Vitamin D) 1 tab PO DAILY LIZY Stop: 03/08/17 08:59 Last Admin: 01/08/17 08:10 Dose: Not Given Cyanocobalamin (Vitamin B12) 500 mcg PO DAILY [facility] Stop: 03/08/17 08:59 Last Admin: 01/08/17 08:10 Dose: Not Given Docusate Sodium (Colace) 100 mg PO DAILY LIZY Stop: 03/08/17 08:59 Last Admin: 01/08/17 08:11 Dose: Not Given Heparin Sodium (Porcine) (Heparin) 5,000 units SUBQ Q12HR [facility] Stop: 03/08/17 20:59 Last Admin: 01/08/17 08:29 Dose: 5,000 units Dextrose/Sodium Chloride (D5-0.45ns) 1,000 mls @ 50 mls/hr IV .Q20H [facility] Stop: 03/07/17 15:19 Last Admin: 01/07/17 16:04 Dose: 50 mls/hr Methylprednisolone Sodium Succinate (Solu-Medrol) 80 mg IVP Q8HR [facility] Stop: 03/07/17 20:59 Last Admin: 01/08/17 05:31 Dose: 80 mg Miscellaneous (Vte Chemical Prophylaxis Screen/ Admission) 1 ea PRN PRN PRN Reason: PROTOCOL Stop: 03/08/17 11:10 Potassium Chloride (Klor-Con) 20 meq PO DAILY [facility] Stop: 03/08/17 08:59 Last Admin: 01/08/17 08:11 Dose: Not Given General: Alert, Oriented x3, No acute distress HEENT: Atraumatic, PERRLA, EOMI Neck: Supple Cardiovascular: Regular rate, Normal S1, Normal S2 Abdomen: Bowel sounds, Soft Extremities: no Clubbing, no Cyanosis, no Edema Assessment/Plan - Assessment Assessment: ALOC ... will order MRI head, CT head NAD, CT carotid NAD, neurology consult hypokalemia ... improved. K+ 4.3 hypocalcemia ... improved Ca+ hypophosphotemia ... improved Ph 4.1 hypomagnesemia ... improved Mg 2.8 dementia constipation ... GI consult. sinus bradycardia ... will order Cardiology consult..Dr. Colindres - Plan Plan: ALOC ... will order MRI head, CT head NAD, CT carotid NAD, neurology consult hypokalemia ... improved. K+ 4.3 hypocalcemia ... improved Ca+ hypophosphotemia ... improved Ph 4.1 hypomagnesemia ... improved Mg 2.8 dementia constipation ... GI consult. sinus bradycardia ... will order Cardiology consult..Dr. Colindres
[2017-01-08] MEDS ORDERED: METHYLPREDNISOLONE SS IV ONE (09:30)
[2017-01-08] MEDS ORDERED: SODIUM CHLORIDE 0.9% IV ONE (09:30)
[2017-01-08] MEDS: 0.9% NS w/20 mEq KCL 1,000 ML IV SCH (10:09)
--- NOTE | 2017-01-08 16:02 | Diagnostic Imaging Report ---
Nuclear medicine HIDA scan HISTORY: Pain, assess for possible cholecystitis COMPARISON: CT abdomen and pelvis on 01/06/2017 Technique/procedure: 4.8 mCi of technetium labeled Choletec was administered intravenously and multiple scintigraphic images were obtained for up to 1 hour. FINDINGS: Prompt hepatic uptake is demonstrated. Gallbladder uptake is seen at 25 minutes. There is probable small bowel uptake within the first hour. Delayed images demonstrate uptake within the small bowel and persistent gallbladder uptake. IMPRESSION: No evidence of acute cholecystitis.
--- NOTE | 2017-01-08 19:26 | Consultation ---
DATE OF CONSULTATION: 01/08/2017 NEUROLOGY CONSULT HISTORY OF PRESENT ILLNESS: The patient is 76-year-old. The patient was admitted with complaints of facial twitching. The patient is better now. The patient has a history of multiple sclerosis. The patient was given steroids. The patient also noted to have abnormal ____. PAST MEDICAL HISTORY: Multiple sclerosis and dementia. REVIEW OF SYSTEMS: Not obtainable. MEDICATIONS: As per reconciliation. PHYSICAL EXAMINATION: VITAL SIGNS: Temperature 98.2, blood pressure 130/70, pulse is 74. NECK: Supple. No bruits. HEART: Sounds S1, S2. LUNGS: Clear. NEUROLOGIC: The patient is lying in bed. His eyes open. Turn and looks at me, but really does track much. His right arm is by his side. No movement. Left arm is left over the chest. He has increased tone, but he will move it up. Pupils react to light. Face is equal. I do not see any twitching at the moment. The patient has increased tone on both upper extremities, but left he will move a little bit. Legs both are extended, no movement, increased tone. Reflexes: 1 to 2+ upper extremity, 2 about knees, -1 at the ankles. INVESTIGATIONS: The patient's lab showed low calcium, low magnesium, replaced. IMPRESSION: 1.Abnormal facial movements. 2.Multiple sclerosis, rule out exacerbation. 3.Dementia. 4.Right side weakness, arm. 5.Paraplegia. PLAN: The patient, Solu-Medrol 500 three doses, he got 1000 in the ER. Correction of electrolyte abnormalities. Rule out underlying sepsis. JOB# [id number]
--- NOTE | 2017-01-08 20:43 | Consultation ---
DATE OF CONSULTATION: 01/08/[address] Antoni Tucker HISTORY AND PHYSICAL: This is a 76-year-old male patient who was brought to [facility] complaining of twitching of the face, chronic constipation. During the hospital stay, the patient had bradycardia and hence Cardiology consult was requested. PAST MEDICAL HISTORY: The patient has a history of multiple sclerosis, chronic constipation. The patient has dementia, BPH, hypertension, COPD. FAMILY HISTORY: Unremarkable. SOCIAL HISTORY: No history of smoking, alcohol abuse. ALLERGIES: None. PHYSICAL EXAMINATION: VITAL SIGNS: Blood pressure 106/70, pulse 50, respirations 20. HEAD: Normocephalic. No lumps or bumps. EYES: Pupils equal, reactive to light. Fundi show AV nicking, sclerae white, conjunctivae pink. NECK: Carotid 2+. Normal upstroke. JVD flat. Thyroid not palpable. Lymph nodes not palpable. CHEST: Shows increased AP diameter. No kyphosis, scoliosis. LUNGS: Bilateral bronchovesicular breath sounds. HEART: PMI fifth intercostal space with mid lateral to midclavicular line. S1, S2. No S3, S4. Systolic murmur, grade 2/6, lower left sternal border without radiation. ABDOMEN: Soft. Liver and spleen not palpable. No organomegaly. Bowel sounds are active. NEUROLOGIC: Unremarkable. EXTREMITIES: Peripheral pulses 2+. No pedal edema. CLINICAL IMPRESSION: Sinus bradycardia, hypokalemia, hypo-magnesium, dementia, benign prostatic hypertrophy, hypertension, chronic obstructive pulmonary disease. PLAN: The patient to continue present care. Monitor the patient closely for any arrhythmias and also get TSH levels. JOB# [id number]
[2017-01-09 06:21] LABS: ALB/GLOB RATIO 1.5 (1.0-1.8); ANION GAP 7.1 (7.0-16.0); BUN - UREA NITROGEN 32 mg/dL (7-25); BUN/CREATININE RATIO 45.7; CALCIUM SERUM 8.2 mg/dL (8.6-10.3); CARBON DIOXIDE 25.9 mEq/L (21.0-31.0); CHLORIDE 108 mEq/L (98-107); CREATININE - SERUM 0.7 mg/dL (0.7-1.3); GLUCOSE 117 mg/dL (70-105); SODIUM SERUM 137 mEq/L (136-145)
[2017-01-09 06:22] LABS: ALKALINE PHOSPHATASE 45 U/L (34-104); BILIRUBIN,TOTAL 0.9 mg/dL (0.3-1.0); SGOT 14 U/L (13-39); SGPT/ALT 13 U/L (7-52)
[2017-01-09] MEDS: 0.9% NS w/20 mEq KCL 1,000 ML IV SCH (07:42)
--- NOTE | 2017-01-09 08:36 | General Progress Note ---
Subjective - Review of Systems Service Date: 01/09/17 Subjective: Patient is awake, alert, no acute distress. Has sinus bradycardia today with HR' s in 40's or 30's. Will obtain Cardiology consult. aphasic Objective - Results Result Diagrams: 01/08/17 05:17 01/09/17 05:05 Recent Labs: Laboratory Last Values WBC 12.3 Th/cmm (4.8-10.8) H D 01/08/17 05:17 RBC 3.76 Mil/cmm (3.80-5.80) L 01/08/17 05:17 Hgb 12.3 gm/dL (12.6-17.4) L 01/08/17 05:17 Hct 35.8 % (39.0-49.0) L 01/08/17 05:17 MCV 95.4 fl (80-99) 01/08/17 05:17 MCH 32.7 pg (27.0-31.0) H 01/08/17 05:17 MCHC Differential 34.3 pg (28.0-36.0) 01/08/17 05:17 RDW 13.0 % (11.5-20.0) 01/08/17 05:17 Plt Count 139 Th/cmm (150-400) L 01/08/17 05:17 MPV 8.5 fl 01/08/17 05:17 Band Neutrophils % 2 % (0-10) 01/08/17 05:17 Neutrophils (Manual) 82 % (40-80) H 01/08/17 05:17 Lymphocytes 8 % (20-50) L 01/08/17 05:17 Monocytes 8 % (2-10) 01/08/17 05:17 Eosinophils 1 % (0-5) 01/06/17 10:50 Platelet Estimate ADEQUATE (NORMAL) 01/08/17 05:17 Platelet Morphology NORMAL (NORMAL) 01/06/17 12:32 Anisocytosis 1+ 01/06/17 12:32 RBC Morph Micro Appear ABNORMAL (NORMAL) 01/06/17 12:32 PT 12.9 SECONDS (9.5-11.5) H 01/06/17 10:50 INR 1.23 (0.5-1.4) 01/06/17 10:50 PTT (Actin FS) 37.0 SECONDS (26.0-38.0) 01/06/17 10:50 Sodium 137 mEq/L (136-145) 01/09/17 05:05 Potassium 4.0 mEq/L (3.5-5.1) 01/09/17 05:05 Chloride 108 mEq/L (98-107) H 01/09/17 05:05 Carbon Dioxide 25.9 mEq/L (21.0-31.0) 01/09/17 05:05 Anion Gap 7.1 (7.0-16.0) 01/09/17 05:05 BUN 32 mg/dL (7-25) H 01/09/17 05:05 Creatinine 0.7 mg/dL (0.7-1.3) 01/09/17 05:05 Est GFR ( Amer) TNP 01/09/17 05:05 Est GFR (Non-Af Amer) TNP 01/09/17 05:05 BUN/Creatinine Ratio 45.7 01/09/17 05:05 Glucose 117 mg/dL (70-105) H 01/09/17 05:05 POC Glucose 92 MG/DL (70 - 105) 01/06/17 15:04 Whole Bld Lactic Acid 0.95 mmol/L (0.60-1.99) 01/06/17 10:53 Calcium 8.2 mg/dL (8.6-10.3) L 01/09/17 05:05 Phosphorus 3.0 mg/dL (2.5-5.0) 01/08/17 05:17 Magnesium 2.5 mg/dL (1.9-2.7) 01/08/17 05:17 Total Bilirubin 0.9 mg/dL (0.3-1.0) 01/09/17 05:05 AST 14 U/L (13-39) 01/09/17 05:05 ALT 13 U/L (7-52) 01/09/17 05:05 Alkaline Phosphatase 45 U/L (34-104) 01/09/17 05:05 Creatine Kinase 52 U/L (30-223) 01/06/17 10:50 Total Protein 5.2 gm/dL (6.0-8.3) L 01/09/17 05:05 Albumin 3.1 gm/dL (4.2-5.5) L 01/09/17 05:05 Globulin 2.1 gm/dL 01/09/17 05:05 Albumin/Globulin Ratio 1.5 (1.0-1.8) 01/09/17 05:05 Triglycerides 26 mg/dL (<150) 01/06/17 11:19 Cholesterol 86 mg/dL (<200) 01/06/17 11:19 LDL Cholesterol Direct 65 mg/dL (75-193) L 01/06/17 11:19 HDL Cholesterol 25 mg/dL (23-92) 01/06/17 11:19 TSH 0.39 uIU/ml (0.34-5.60) 01/06/17 11:59 Urine Source CATH 01/06/17 11:05 Urine Color YELLOW 01/06/17 11:05 Urine Clarity SL. CLOUDY (CLEAR) 01/06/17 11:05 Urine pH 6.0 (4.6 - 8.0) 01/06/17 11:05 Ur Specific [place] 1.025 (1.005-1.030) 01/06/17 11:05 Urine Protein NEGATIVE mg/dL (NEGATIVE) 01/06/17 11:05 Urine Glucose (UA) NEGATIVE mg/dL (NEGATIVE) 01/06/17 11:05 Urine Ketones TRACE mg/dL (NEGATIVE) 01/06/17 11:05 Urine Blood TRACE (NEGATIVE) 01/06/17 11:05 Urine Nitrate NEGATIVE (NEGATIVE) 01/06/17 11:05 Urine Bilirubin NEGATIVE (NEGATIVE) 01/06/17 11:05 Urine Urobilinogen 1.0 E.U./dL (0.2 - 1.0) 01/06/17 11:05 Ur Leukocyte Esterase TRACE (NEGATIVE) H 01/06/17 11:05 Urine RBC 2-3 /hpf (0-5) 01/06/17 11:05 Urine WBC 0-2 /hpf (0-5) 01/06/17 11:05 Ur Epithelial Cells OCCASIONAL /lpf (FEW) 01/06/17 11:05 Urine Bacteria NONE SEEN /hpf (NONE SEEN) 01/06/17 11:05 - Physical Exam Vitals and I&O: Vital Signs Temp 98.6 F 01/09/17 00:00 Pulse 52 01/09/17 00:00 Resp 18 01/09/17 00:00 BP 100/47 01/09/17 00:00 Pulse Ox 97 09/12/17 00:00 Intake & Output 01/08/17 01/09/17 01/09/17 18:59 06:59 18:59 Intake Total 1000 Balance 1000 Weight (lbs) 69.49 kg Intake: Intake, IV Amount 1000 0.9% NS w/20 mEq KCL 1, 1000 000 ml @ 50 mls/hr IV . Q20H [facility] Rx#:[id number] Other: # Bowel Movements 0 Active Medications: Current Medications Artificial Tears (Artificial Tears Ophth Soln) 1 drop EACH EYE BID LIZY Stop: 03/08/17 08:59 Last Admin: 01/08/17 16:39 Dose: 1 drop Ascorbic Acid (Vitamin C) 500 mg PO DAILY [facility] Stop: 03/08/17 08:59 Last Admin: 01/08/17 08:10 Dose: Not Given Atropine Sulfate (Atropine Syringe) 1 mg IVP Q4HR PRN PRN Reason: HR BELOW 40 Stop: 03/09/17 08:32 Last Admin: 01/09/17 01:00 Dose: 1 mg Bisacodyl (Dulcolax 10 Mg Supp) 10 mg RC DAILY PRN PRN Reason: Constipation Stop: 03/07/17 17:05 Calcium/Vitamin D (Oscal W/Vitamin D) 1 tab PO DAILY [facility] Stop: 03/08/17 08:59 Last Admin: 01/08/17 08:10 Dose: Not Given Cyanocobalamin (Vitamin B12) 500 mcg PO DAILY LI[facility] Stop: 03/08/17 08:59 Last Admin: 01/08/17 08:10 Dose: Not Given Docusate Sodium (Colace) 100 mg PO DAILY [facility] Stop: 03/08/17 08:59 Last Admin: 01/08/17 08:11 Dose: Not Given Heparin Sodium (Porcine) (Heparin) 5,000 units SUBQ Q12HR [facility] Stop: 03/08/17 20:59 Last Admin: 01/08/17 21:13 Dose: 5,000 units Dextrose/Sodium Chloride (D5-0.45ns) 1,000 mls @ 50 mls/hr IV .Q20H [facility] Stop: 03/07/17 15:19 Last Admin: 01/07/17 16:04 Dose: 50 mls/hr Potassium Chloride/Sodium Chloride (0.9% Ns W/20 Meq Kcl) 1,000 mls @ 50 mls/ hr IV .Q20H [facility] Stop: 03/09/17 08:38 Last Admin: 01/09/17 07:42 Dose: 50 mls/hr Miscellaneous (Vte Chemical Prophylaxis Screen/ Admission) 1 ea PRN PRN PRN Reason: PROTOCOL Stop: 03/08/17 11:10 Potassium Chloride (Klor-Con) 20 meq PO DAILY [facility] Stop: 03/08/17 08:59 Last Admin: 01/08/17 08:11 Dose: Not Given General: Alert, Oriented x3, No acute distress HEENT: Atraumatic, PERRLA, EOMI Neck: Supple Cardiovascular: Regular rate, Normal S1, Normal S2 Abdomen: Bowel sounds, Soft Extremities: no Clubbing, no Cyanosis, no Edema Assessment/Plan - Problem List Patient Problems: All Active Problems Constipation (Acute) K59.00 Dementia (Acute) F03.90 Facial twitching (Acute) G51.4 Hypocalcemia (Acute) E83.51 Hypokalemia (Acute) E87.6 Hypomagnesemia (Acute) E83.42 Hypophosphatemia (Acute) E83.39 Sinus bradycardia (Acute) R00.1 - Assessment Assessment: ALOC ... will order MRI head, CT head NAD, CT carotid NAD, neurology consult hypokalemia ... improved. K+ 4.3 hypocalcemia ... improved Ca+ hypophosphotemia ... improved Ph 4.1 hypomagnesemia ... improved Mg 2.8 dementia constipation ... GI consult. sinus bradycardia ... will order Cardiology consult..Dr. Colindres. please see dictated report. - Plan Plan: ALOC ... will order MRI head, CT head NAD, CT carotid NAD, neurology consult hypokalemia ... improved. K+ 4.3 hypocalcemia ... improved Ca+ hypophosphotemia ... improved Ph 4.1 hypomagnesemia ... improved Mg 2.8 dementia constipation ... GI consult. sinus bradycardia ... will order Cardiology consult..Dr. Colindres Nutritional Asmnt/Malnutr-PDOC - Dietary Evaluation Malnutrition Findings (Please click <Entered> for more info): Nutritional Asmnt/Malnutrition Start: 01/08/17 12: 55 Text: Status: Complete Freq: Document 01/08/17 12:56 GSUN (Rec: 01/08/17 13:16 [id number] [id number]) Nutritional Asmnt/Malnutrition Patient General Information Nutritional Screening Consult Diagnosis ALOC, acute MS exacerbation Pertinent Medical Hx/Surgical Hx Dementia, multiple sclerosis, constipation Subjective Information 76 year old male from SNF. RD consult for laura Huntley. Per RN notes, facial twitching on adm, currently NPO with swallow eval pending. Pt was awake during visit, followed RD with eyes, did not provide any information. Mild wasting to chest noted, loose skin to arms. Current Diet Order/ Nutrition Support NPO Pertinent Medications Vitamin C, Oscal W/Vitamin D, Vitamin B12, D5-0.45ns, Dulcolax, Colace Pertinent Labs 01/08: reviewed. Glucose 148H Nutritional Hx/Data Height 1.85 m Height (Calculated Centimeters) 185.4 Current Weight (lbs) 69.49 kg Weight (Calculated Kilograms) 69.5 Weight (Calculated Grams) 72892.4 [place] Body Weight 184 Weight Status Approriate GI Symptoms Usual diet at home [facility]: pureed, large portion lunch and dinner, 4oz house supplement Skin Integrity/Comment: Audi 12. Pressure area r foot and upper back, abrasion l knee and r leg Estimated Nutritional Goals BEE in Kcals: Using Current wt Calories/Kcals/Kg IBW 184lb/83.6kg with consideration skin integrity and BMI Kcals Calculated 2090-2508kcal (25-30kcal/kg) Protein: Using Current wt Protein Calculated 84-109g (1-1.3g/kg) Fluid: ml 2090-2508ml (1ml/kcal) Nutritional Problem 2. 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 Recommend regular diet, diet texture per swallow eval (pending). SNF order pureed. Expected Outcomes/Goals Expected Outcomes/Goals 1. PO intake to meet at least 75% of estimated nutritional needs.
[2017-01-09] MEDS: Polyvinyl Alcohol Ophth Soln 15 mL Bottle EACH EYE SCH ×2 (09:29→17:56)
[2017-01-09] MEDS: Calcium Carb/Vit D 500 mg/200 U Tab PO SCH (09:34)
[2017-01-09] MEDS: Potassium Chloride 20 mEq ER Tab PO SCH (09:37)
[2017-01-09] MEDS: Multivitamin w/ Minerals Tab PO SCH (09:37)
--- NOTE | 2017-01-09 13:11 | GI Progress Note ---
Subjective - Review of Systems Service Date: 01/09/17 Subjective: Pt is non verbal, no obvious sign of discomfort. Objective - Results Result Diagrams: 01/08/17 05:17 01/09/17 05:05 Recent Labs: Laboratory Last Values WBC 12.3 Th/cmm (4.8-10.8) H D 01/08/17 05:17 RBC 3.76 Mil/cmm (3.80-5.80) L 01/08/17 05:17 Hgb 12.3 gm/dL (12.6-17.4) L 01/08/17 05:17 Hct 35.8 % (39.0-49.0) L 01/08/17 05:17 MCV 95.4 fl (80-99) 01/08/17 05:17 MCH 32.7 pg (27.0-31.0) H 01/08/17 05:17 MCHC Differential 34.3 pg (28.0-36.0) 01/08/17 05:17 RDW 13.0 % (11.5-20.0) 01/08/17 05:17 Plt Count 139 Th/cmm (150-400) L 01/08/17 05:17 MPV 8.5 fl 01/08/17 05:17 Band Neutrophils % 2 % (0-10) 01/08/17 05:17 Neutrophils (Manual) 82 % (40-80) H 01/08/17 05:17 Lymphocytes 8 % (20-50) L 01/08/17 05:17 Monocytes 8 % (2-10) 01/08/17 05:17 Eosinophils 1 % (0-5) 01/06/17 10:50 Platelet Estimate ADEQUATE (NORMAL) 01/08/17 05:17 Platelet Morphology NORMAL (NORMAL) 01/06/17 12:32 Anisocytosis 1+ 01/06/17 12:32 RBC Morph Micro Appear ABNORMAL (NORMAL) 01/06/17 12:32 PT 12.9 SECONDS (9.5-11.5) H 01/06/17 10:50 INR 1.23 (0.5-1.4) 01/06/17 10:50 PTT (Actin FS) 37.0 SECONDS (26.0-38.0) 01/06/17 10:50 Sodium 137 mEq/L (136-145) 01/09/17 05:05 Potassium 4.0 mEq/L (3.5-5.1) 01/09/17 05:05 Chloride 108 mEq/L (98-107) H 01/09/17 05:05 Carbon Dioxide 25.9 mEq/L (21.0-31.0) 01/09/17 05:05 Anion Gap 7.1 (7.0-16.0) 01/09/17 05:05 BUN 32 mg/dL (7-25) H 01/09/17 05:05 Creatinine 0.7 mg/dL (0.7-1.3) 01/09/17 05:05 Est GFR ( Amer) TNP 01/09/17 05:05 Est GFR (Non-Af Amer) TNP 01/09/17 05:05 BUN/Creatinine Ratio 45.7 01/09/17 05:05 Glucose 117 mg/dL (70-105) H 01/09/17 05:05 POC Glucose 92 MG/DL (70 - 105) 01/06/17 15:04 Whole Bld Lactic Acid 0.95 mmol/L (0.60-1.99) 01/06/17 10:53 Calcium 8.2 mg/dL (8.6-10.3) L 01/09/17 05:05 Phosphorus 3.0 mg/dL (2.5-5.0) 01/08/17 05:17 Magnesium 2.5 mg/dL (1.9-2.7) 01/08/17 05:17 Total Bilirubin 0.9 mg/dL (0.3-1.0) 01/09/17 05:05 AST 14 U/L (13-39) 01/09/17 05:05 ALT 13 U/L (7-52) 01/09/17 05:05 Alkaline Phosphatase 45 U/L (34-104) 01/09/17 05:05 Creatine Kinase 52 U/L (30-223) 01/06/17 10:50 Total Protein 5.2 gm/dL (6.0-8.3) L 01/09/17 05:05 Albumin 3.1 gm/dL (4.2-5.5) L 01/09/17 05:05 Globulin 2.1 gm/dL 01/09/17 05:05 Albumin/Globulin Ratio 1.5 (1.0-1.8) 01/09/17 05:05 Triglycerides 26 mg/dL (<150) 01/06/17 11:19 Cholesterol 86 mg/dL (<200) 01/06/17 11:19 LDL Cholesterol Direct 65 mg/dL (75-193) L 01/06/17 11:19 HDL Cholesterol 25 mg/dL (23-92) 01/06/17 11:19 TSH 0.39 uIU/ml (0.34-5.60) 01/06/17 11:59 Urine Source CATH 01/06/17 11:05 Urine Color YELLOW 01/06/17 11:05 Urine Clarity SL. CLOUDY (CLEAR) 01/06/17 11:05 Urine pH 6.0 (4.6 - 8.0) 01/06/17 11:05 Ur Specific [place] 1.025 (1.005-1.030) 01/06/17 11:05 Urine Protein NEGATIVE mg/dL (NEGATIVE) 01/06/17 11:05 Urine Glucose (UA) NEGATIVE mg/dL (NEGATIVE) 01/06/17 11:05 Urine Ketones TRACE mg/dL (NEGATIVE) 01/06/17 11:05 Urine Blood TRACE (NEGATIVE) 01/06/17 11:05 Urine Nitrate NEGATIVE (NEGATIVE) 01/06/17 11:05 Urine Bilirubin NEGATIVE (NEGATIVE) 01/06/17 11:05 Urine Urobilinogen 1.0 E.U./dL (0.2 - 1.0) 01/06/17 11:05 Ur Leukocyte Esterase TRACE (NEGATIVE) H 01/06/17 11:05 Urine RBC 2-3 /hpf (0-5) 01/06/17 11:05 Urine WBC 0-2 /hpf (0-5) 01/06/17 11:05 Ur Epithelial Cells OCCASIONAL /lpf (FEW) 01/06/17 11:05 Urine Bacteria NONE SEEN /hpf (NONE SEEN) 01/06/17 11:05 - Physical Exam Vitals and I&O: Vital Signs Temp 100.2 F 01/09/17 08:00 Pulse 51 01/09/17 08:00 Resp 20 01/09/17 08:00 BP 152/49 01/09/17 08:00 Pulse Ox 95 01/09/17 08:00 Intake & Output 01/08/17 01/09/1701/09/17 18:59 06:59 18:59 Intake Total 1000 Balance 1000 Weight (lbs) 69.49 kg Intake: Intake, IV Amount 1000 0.9% NS w/20 mEq KCL 1, 1000 000 ml @ 50 mls/hr IV . Q20H [facility] Rx#:[id number] Other: # Bowel Movements 0 Active Medications: Current Medications Acetaminophen (Tylenol 650mg Supp) 650 mg RC Q4H PRN PRN Reason: Fever > 101 Stop: 03/10/17 13:04 Artificial Tears (Artificial Tears Ophth Soln) 1 drop EACH EYE BID [facility] Stop: 03/08/17 08:59 Last Admin: 01/09/17 09:29 Dose: 1 drop Ascorbic Acid (Vitamin C) 500 mg PO DAILY [facility] Stop: 03/08/17 08:59 Last Admin: 01/09/17 09:34 Dose: Not Given Atropine Sulfate (Atropine Syringe) 1 mg IVP Q4HR PRN PRN Reason: HR BELOW 40 Stop: 03/09/17 08:32 Last Admin: 01/09/17 01:00 Dose: 1 mg Bisacodyl (Dulcolax 10 Mg Supp) 10 mg RC DAILY PRN PRN Reason: Constipation Stop: 03/07/17 17:05 Calcium/Vitamin D (Oscal W/Vitamin D) 1 tab PO DAILY [facility] Stop: 03/08/17 08:59 Last Admin: 01/09/17 09:34 Dose: Not Given Cyanocobalamin (Vitamin B12) 500 mcg PO DAILY [facility] Stop: 03/08/17 08:59 Last Admin: 01/09/17 09:35 Dose: Not Given Docusate Sodium (Colace) 100 mg PO DAILY [facility] Stop: 03/08/17 08:59 Last Admin: 01/09/17 09:36 Dose: Not Given Heparin Sodium (Porcine) (Heparin) 5,000 units SUBQ Q12HR [facility] Stop: 03/08/17 20:59 Last Admin: 01/09/17 09:37 Dose: Not Given Dextrose/Sodium Chloride (D5-0.45ns) 1,000 mls @ 50 mls/hr IV .Q20H [facility] Stop: 03/07/17 15:19 Last Admin: 01/07/17 16:04 Dose: 50 mls/hr Potassium Chloride/Sodium Chloride (0.9% Ns W/20 Meq Kcl) 1,000 mls @ 50 mls/ hr IV .Q20H [facility] Stop: 03/09/17 08:38 Last Admin: 01/09/17 07:42 Dose: 50 mls/hr Miscellaneous (Vte Chemical Prophylaxis Screen/ Admission) 1 ea [facility] PRN PRN PRN Reason: PROTOCOL Stop: 03/08/17 11:10 Potassium Chloride (Klor-Con) 20 meq PO DAILY [facility] Stop: 03/08/17 08:59 Last Admin: 01/09/17 09:37 Dose: Not Given General: Alert, No acute distress HEENT: Atraumatic, PERRLA, EOMI Neck: Supple Abdomen: Bowel sounds, Soft, Other (non tender, no guarding, no rebound) Extremities: no Clubbing, no Cyanosis, no Edema Assessment/Plan - Problem List Patient Problems: All Active Problems Constipation (Acute) K59.00 Dementia (Acute) F03.90 Facial twitching (Acute) G51.4 Hypocalcemia (Acute) E83.51 Hypokalemia (Acute) E87.6 Hypomagnesemia (Acute) E83.42 Hypophosphatemia (Acute) E83.39 Sinus bradycardia (Acute) R00.1 - Assessment Assessment: # Fecal impaction Resolving with laxatives (colace and dulcolax) # Dilated CBD on CT Awaiting MRCP to ensure no obstructive biliary disease, although LFTs are normal. Plan: - await MRCP - will add miralax to laxative regimen
--- NOTE | 2017-01-09 20:11 | Progress Notes ---
DATE: 01/09/2017 SUBJECTIVE: The patient is in bed. Eyes open. Not much movement. No twitching of the face. No seizures. OBJECTIVE: VITAL SIGNS: Temperature 97.6, blood pressure 138/74, and pulse is 78. NECK: Supple. No bruits. HEART: Sounds S1 and S2. LUNGS: Clear. NEUROLOGIC: The patient is awake, talk. The patient's right arm, not much movement, left is held semi flexed over the chest. Increased tone. Legs both extended, increased tone. INVESTIGATION: CT head shows no acute process. A lot of atrophy. CT angio head and neck shows no stenosis. ASSESSMENT: 1. Abnormal facial movements, better. 2. Multiple sclerosis, possible exacerbation. The patient is on short course of Solu-Medrol. 3. Dementia. 4. Weakness, more in right arm and bilateral paraplegia. PLAN: Solu-Medrol. Treat underlying possible sepsis. JOB# [id number]
[2017-01-10 06:44] LABS: ALB/GLOB RATIO 1.3 (1.0-1.8); ALKALINE PHOSPHATASE 41 U/L (34-104); ANION GAP 7.4 (7.0-16.0); BILIRUBIN,TOTAL 1.2 mg/dL (0.3-1.0); BUN - UREA NITROGEN 30 mg/dL (7-25); BUN/CREATININE RATIO 42.9; CALCIUM SERUM 8.2 mg/dL (8.6-10.3); CARBON DIOXIDE 26.2 mEq/L (21.0-31.0); CHLORIDE 112 mEq/L (98-107); CREATININE - SERUM 0.7 mg/dL (0.7-1.3); GLUCOSE 91 mg/dL (70-105); MAGNESIUM 2.5 mg/dL (1.9-2.7); PHOSPHOROUS 1.7 mg/dL (2.5-5.0); POTASSIUM SERUM 3.6 mEq/L (3.5-5.1); SGOT 14 U/L (13-39); SGPT/ALT 16 U/L (7-52); SODIUM SERUM 142 mEq/L (136-145)
--- NOTE | 2017-01-10 08:36 | General Progress Note ---
Subjective - Review of Systems Service Date: 01/10/17 Subjective: Patient is awake, alert, no acute distress. Patient was seen and evaluated by neurology. Please see dictated report. Maybe discharged back to SNF. Objective - Results Result Diagrams: 01/08/17 05:17 01/10/17 05:25 Recent Labs: Laboratory Last Values WBC 12.3 Th/cmm (4.8-10.8) H D 01/08/17 05:17 RBC 3.76 Mil/cmm (3.80-5.80) L 01/08/17 05:17 Hgb 12.3 gm/dL (12.6-17.4) L 01/08/17 05:17 Hct 35.8 % (39.0-49.0) L 01/08/17 05:17 MCV 95.4 fl (80-99) 01/08/17 05:17 MCH 32.7 pg (27.0-31.0) H 01/08/17 05:17 MCHC Differential 34.3 pg (28.0-36.0) 01/08/17 05:17 RDW 13.0 % (11.5-20.0) 01/08/17 05:17 Plt Count 139 Th/cmm (150-400) L 01/08/17 05:17 MPV 8.5 fl 01/08/17 05:17 Band Neutrophils % 2 % (0-10) 01/08/17 05:17 Neutrophils (Manual) 82 % (40-80) H 01/08/17 05:17 Lymphocytes 8 % (20-50) L 01/08/17 05:17 Monocytes 8 % (2-10) 01/08/17 05:17 Eosinophils 1 % (0-5) 01/06/17 10:50 Platelet Estimate ADEQUATE (NORMAL) 01/08/17 05:17 Platelet Morphology NORMAL (NORMAL) 01/06/17 12:32 Anisocytosis 1+ 01/06/17 12:32 RBC Morph Micro Appear ABNORMAL (NORMAL) 01/06/17 12:32 PT 12.9 SECONDS (9.5-11.5) H 01/06/17 10:50 INR 1.23 (0.5-1.4) 01/06/17 10:50 PTT (Actin FS) 37.0 SECONDS (26.0-38.0) 01/06/17 10:50 Sodium 142 mEq/L (136-145) 01/10/17 05:25 Potassium 3.6 mEq/L (3.5-5.1) 01/10/17 05:25 Chloride 112 mEq/L (98-107) H 01/10/17 05:25 Carbon Dioxide 26.2 mEq/L (21.0-31.0) 01/10/17 05:25 Anion Gap 7.4 (7.0-16.0) 01/10/17 05:25 BUN 30 mg/dL (7-25) H 01/10/17 05:25 Creatinine 0.7 mg/dL (0.7-1.3) 01/10/17 05:25 Est GFR ( Amer) TNP 01/10/17 05:25 Est GFR (Non-Af Amer) TNP 01/10/17 05:25 BUN/Creatinine Ratio 42.9 01/10/17 05:25 Glucose 91 mg/dL (70-105) 01/10/17 05:25 POC Glucose 92 MG/DL (70 - 105) 01/06/17 15:04 Whole Bld Lactic Acid 0.95 mmol/L (0.60-1.99) 01/06/17 10:53 Calcium 8.2 mg/dL (8.6-10.3) L 01/10/17 05:25 Phosphorus 1.7 mg/dL (2.5-5.0) L 01/10/17 05:25 Magnesium 2.5 mg/dL (1.9-2.7) 01/10/17 05:25 Total Bilirubin 1.2 mg/dL (0.3-1.0) H 01/10/17 05:25 AST 14 U/L (13-39) 01/10/17 05:25 ALT 16 U/L (7-52) 01/10/17 05:25 Alkaline Phosphatase 41 U/L (34-104) 01/10/17 05:25 Creatine Kinase 52 U/L (30-223) 01/06/17 10:50 Total Protein 5.1 gm/dL (6.0-8.3) L 01/10/17 05:25 Albumin 2.9 gm/dL (4.2-5.5) L 01/10/17 05:25 Globulin 2.2 gm/dL 01/10/17 05:25 Albumin/Globulin Ratio 1.3 (1.0-1.8) 01/10/17 05:25 Triglycerides 26 mg/dL (<150) 01/06/17 11:19 Cholesterol 86 mg/dL (<200) 01/06/17 11:19 LDL Cholesterol Direct 65 mg/dL (75-193) L 01/06/17 11:19 HDL Cholesterol 25 mg/dL (23-92) 01/06/17 11:19 TSH 0.39 uIU/ml (0.34-5.60) 01/06/17 11:59 PTH Intact 31 pg/mL (15-65) 01/06/17 12:09 Urine Source CATH 01/06/17 11:05 Urine Color YELLOW 01/06/17 11:05 Urine Clarity SL. CLOUDY (CLEAR) 01/06/17 11:05 Urine pH 6.0 (4.6 - 8.0) 01/06/17 11:05 Ur Specific [place] 1.025 (1.005-1.030) 01/06/17 11:05 Urine Protein NEGATIVE mg/dL (NEGATIVE) 01/06/17 11:05 Urine Glucose (UA) NEGATIVE mg/dL (NEGATIVE) 01/06/17 11:05 Urine Ketones TRACE mg/dL (NEGATIVE) 01/06/17 11:05 Urine Blood TRACE (NEGATIVE) 01/06/17 11:05 Urine Nitrate NEGATIVE (NEGATIVE) 01/06/17 11:05 Urine Bilirubin NEGATIVE (NEGATIVE) 01/06/17 11:05 Urine Urobilinogen 1.0 E.U./dL (0.2 - 1.0) 01/06/17 11:05 Ur Leukocyte Esterase TRACE (NEGATIVE) H 01/06/17 11:05 Urine RBC 2-3 /hpf (0-5) 01/06/17 11:05 Urine WBC 0-2 /hpf (0-5) 01/06/17 11:05 Ur Epithelial Cells OCCASIONAL /lpf (FEW) 01/06/17 11:05 Urine Bacteria NONE SEEN /hpf (NONE SEEN) 01/06/17 11:05 - Physical Exam Vitals and I&O: Vital Signs Temp 98.4 F 01/10/17 04:00 Pulse 68 01/10/17 04:00 Resp 17 01/10/17 04:00 BP 111/58 01/10/17 04:00 Pulse Ox 97 01/10/17 04:00 Intake & Output 01/09/17 01/10/17 01/10/17 18:59 06:59 18:59 Weight (lbs) 69.4 kg 68.969 kg Other: # Voids 2 # Bowel Movements 0 Active Medications: Current Medications Acetaminophen (Tylenol 650mg Supp) 650 mg RC Q4H PRN PRN Reason: Fever > 101 Stop: 03/10/17 13:04 Last Admin: 01/09/17 17:56 Dose: 650 mg Artificial Tears (Artificial Tears Ophth Soln) 1 drop EACH EYE BID [facility] Stop: 03/08/17 08:59 Last Admin: 01/09/17 17:56 Dose: 1 drop Ascorbic Acid (Vitamin C) 500 mg PO DAILY [facility] Stop: 03/08/17 08:59 Last Admin: 01/09/17 09:34 Dose: Not Given Atropine Sulfate (Atropine Syringe) 1 mg IVP Q4HR PRN PRN Reason: HR BELOW 40 Stop: 03/09/17 08:32 Last Admin: 01/09/17 01:00 Dose: 1 mg Bisacodyl (Dulcolax 10 Mg Supp) 10 mg RC DAILY PRN PRN Reason: Constipation Stop: 03/07/17 17:05 Calcium/Vitamin D (Oscal W/Vitamin D) 1 tab PO DAILY [facility] Stop: 03/08/17 08:59 Last Admin: 01/09/17 09:34 Dose: Not Given Cyanocobalamin (Vitamin B12) 500 mcg PO DAILY [facility] Stop: 03/08/17 08:59 Last Admin: 01/09/17 09:35 Dose: Not Given Docusate Sodium (Colace) 100 mg PO DAILY [facility] Stop: 03/08/17 08:59 Last Admin: 01/09/17 09:36 Dose: Not Given Heparin Sodium (Porcine) (Heparin) 5,000 units SUBQ Q12HR [facility] Stop: 03/08/17 20:59 Last Admin: 01/09/17 22:37 Dose: 5,000 units Dextrose/Sodium Chloride (D5-0.45ns) 1,000 mls @ 50 mls/hr IV .Q20H [facility] Stop: 03/07/17 15:19 Last Admin: 01/07/17 16:04 Dose: 50 mls/hr Potassium Chloride/Sodium Chloride (0.9% Ns W/20 Meq Kcl) 1,000 mls @ 50 mls/ hr IV .Q20H [facility] Stop: 03/09/17 08:38 Last Admin: 01/09/17 07:42 Dose: 50 mls/hr Miscellaneous (Vte Chemical Prophylaxis Screen/ Admission) 1 ea PRN PRN PRN Reason: PROTOCOL Stop: 03/08/17 11:10 Polyethylene Glycol (Miralax) 17 gm PO DAILY [facility] Stop: 03/11/17 08:59 Potassium Chloride (Klor-Con) 20 meq PO DAILY [facility] Stop: 03/08/17 08:59 Last Admin: 01/09/17 09:37 Dose: Not Given General: Alert, No acute distress HEENT: Atraumatic, PERRLA, EOMI Neck: Supple Cardiovascular: Regular rate, Normal S1, Normal S2 Abdomen: Bowel sounds, Soft, Other (non tender, no guarding, no rebound) Extremities: no Clubbing, no Cyanosis, no Edema Assessment/Plan - Problem List Patient Problems: All Active Problems Constipation (Acute) K59.00 Dementia (Acute) F03.90 Facial twitching (Acute) G51.4 Hypocalcemia (Acute) E83.51 Hypokalemia (Acute) E87.6 Hypomagnesemia (Acute) E83.42 Hypophosphatemia (Acute) E83.39 Sinus bradycardia (Acute) R00.1 - Assessment Assessment: ALOC ... improved. CT head NAD, CT carotid NAD. CVA per MRI head ... management per Dr. Franklin MS acute exacerbation ... stable. Patient to continue steroids IV please see neurology consult, CT head neg, hypokalemia ... improved. K+ 4.3 hypocalcemia ... improved Ca+ hypophosphotemia ... improved Ph 4.1 hypomagnesemia ... improved Mg 2.8 dementia constipation ... GI consult. sinus bradycardia ... will order Cardiology consult..Dr. Colindres. please see dictated report. - Plan Plan: ALOC ... resolved. MRI head pending, CT head NAD, CT carotid NAD. MS acute exacerbation ... stable. Patient to continue steroids IV please see neurology consult, CT head neg, hypokalemia ... improved. K+ 4.3 hypocalcemia ... improved Ca+ hypophosphotemia ... improved Ph 4.1 hypomagnesemia ... improved Mg 2.8 dementia constipation ... GI consult. sinus bradycardia ... will order Cardiology consult..Dr. Colindres. please see dictated report. Nutritional Asmnt/Malnutr-PDOC - Dietary Evaluation Malnutrition Findings (Please click <Entered> for more info): Nutritional Asmnt/Malnutrition Start: 01/08/17 12: 55 Text: Status: Complete Freq: Document 01/08/17 12:56 GSUN (Rec: 01/08/17 13:16 GSUN [id number]) Nutritional Asmnt/Malnutrition Patient General Information Nutritional Screening Consult Diagnosis ALOC, acute MS exacerbation Pertinent Medical Hx/Surgical Hx Dementia, multiple sclerosis, constipation Subjective Information 76 year old male from SNF. RD consult for laura Huntley. Per RN notes, facial twitching on adm, currently NPO with swallow eval pending. Pt was awake during visit, followed RD with eyes, did not provide any information. Mild wasting to chest noted, loose skin to arms. Current Diet Order/ Nutrition Support NPO Pertinent Medications Vitamin C, Oscal W/Vitamin D, Vitamin B12, D5-0.45ns, Dulcolax, Colace Pertinent Labs 01/08: reviewed. Glucose 148H Nutritional Hx/Data Height 1.85 m Height (Calculated Centimeters) 185.4 Current Weight (lbs) 69.49 kg Weight (Calculated Kilograms) 69.5 Weight (Calculated Grams) 43918.4 [place] Body Weight 184 Weight Status Approriate GI Symptoms Usual diet at home [facility]: pureed, large portion lunch and dinner, 4oz house supplement Skin Integrity/Comment: Audi 12. Pressure area r foot and upper back, abrasion l knee and r leg Estimated Nutritional Goals BEE in Kcals: Using Current wt Calories/Kcals/Kg IBW 184lb/83.6kg with consideration skin integrity and BMI Kcals Calculated 0-2508kcal (25-30kcal/kg) Protein: Using Current wt Protein Calculated 84-109g (1-1.3g/kg) Fluid: ml 0-2508ml (1ml/kcal) Nutritional Problem 2. 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 Recommend regular diet, diet texture per swallow eval (pending). SNF order pureed. Expected Outcomes/Goals Expected Outcomes/Goals 1. PO intake to meet at least 75% of estimated nutritional needs.
--- NOTE | 2017-01-10 08:41 | Diagnostic Imaging Report ---
MRI of the brain HISTORY: Stroke, CVA Multiple MRI sequences were obtained in the axial, coronal, and sagittal planes. The exam is extremely limited due to patient motion artifact. The exam demonstrates marked enlargement of the ventricular system along with enlargement of cerebral sulci is recommended system reflecting atrophy. Hyperintensity noted on T2 and FLAIR images about the periphery of the lateral ventricles. In addition, hyperintense changes noted within the supratentorial white matter regions on the sequences. No mass effect. The findings may be associated with chronic small vessel ischemic disease. There is an abnormal region of increased signal intensity on diffusion images within the left frontal area near the midline. No significant mass effect. MRI signal characteristics may be associated with an acute ischemic infarct. Clinical correlation is needed. No definite focal abnormality seen within the cerebellum. The brainstem is normal. The seventh/eighth nerve complexes are seen bilaterally and appear normal. No extra-axial masses or abnormal fluid collections. No abnormalities are seen in the region of the sella turcica/pituitary gland. Some No definite abnormality seen within the paranasal sinuses. The nasal septum is deviated to the left. IMPRESSION: 1. Very Limited/suboptimal exam due to patient motion artifact 2. ABNORMAL CHANGES WITHIN THE LEFT FRONTAL REGION NEAR THE MIDLINE. MRI SIGNAL CHARACTERISTICS MAY BE ASSOCIATED WITH AN ACUTE ISCHEMIC INFARCT. CLINICAL CORRELATION IS NEEDED. 3. Generalized cerebral atrophy 4. Extensive supratentorial periventricular white matter changes. The findings may be associated with chronic small vessel ischemic disease.
--- NOTE | 2017-01-10 08:42 | Diagnostic Imaging Report ---
Magnetic resonance Cholepancreatography (MRCP) HISTORY: Pain, distended gallbladder Prior imaging studies not available for comparison at this time. Multiple MRI sequences including 3-D high-resolution thin/thick slab were obtained. Exam is limited due to patient motion artifact. The exam provide further delineation the common bile duct. This exhibits a normal caliber (3.2 mm). The distal portion of the duct cannot be clearly visualized. There is suggestion of a convex possibly intraluminal defect. A calculus within the distal portion of the duct cannot be definitely excluded. Again, no dilatation of the duct. There is a mildly distended gallbladder with intraluminal filling defects consistent with cholelithiasis. No intrahepatic biliary dilatation. A small portion of the pancreatic duct is seen and appears normal. No definite focal lesions seen within the liver. The left lobe is small. Spleen appears normal. No definite focal parenchymal abnormality seen in the region of the pancreas. Dilated transverse colon is noted. IMPRESSION: 1. Very limited exam due to patient motion 2. Findings consistent with cholelithiasis 3. Normal caliber of the common bile duct. However, the distal portion of the duct is not visualized and there is suggestion of a convex intraluminal defect. A calculus cannot be excluded. Clinical correlation is needed.
[2017-01-10] MEDS ORDERED: Potassium Chloride 20 mEq ER Tab PO ONE (09:00)
[2017-01-10] MEDS: Calcium Carb/Vit D 500 mg/200 U Tab PO SCH (09:32)
[2017-01-10] MEDS: Multivitamin w/ Minerals Tab PO SCH (09:33)
[2017-01-10] MEDS: POLYETHYLENE GLYCOL 3350 17 GM PACK PO SCH (09:33)
[2017-01-10] MEDS: Potassium Chloride 20 mEq ER Tab PO SCH (09:35)
[2017-01-10] MEDS: Polyvinyl Alcohol Ophth Soln 15 mL Bottle EACH EYE SCH ×2 (09:55→17:00)
--- NOTE | 2017-01-10 10:10 | Progress Notes ---
DATE: 01/10/2017 SUBJECTIVE: The patient is in bed. Will open eyes, awake, but still limited movements of the extremities, right arm is extended. Left is kind of flexed over the chest. OBJECTIVE: VITAL SIGNS: Temperature 98.4, blood pressure 130/70, pulse is 76. NEUROLOGICAL: The patient is awake, does not take, right arm extended. Left is semi-flexed. Increased tone, legs extended bilaterally. INVESTIGATIONS: CT scan of the head negative. MEDICATIONS: The patient has Solu-Medrol, discontinued. The patient's electrolytes are okay now. ASSESSMENT: 1. Abnormal movements, better. 2. Multiple sclerosis. Short course of steroids. DC 3. Dementia. 4. Weakness with right arm extended, left weak with semi-flexion, no movement of the legs. Neurologically JOB# [id number]
--- NOTE | 2017-01-10 10:49 | GI Progress Note ---
Subjective - Review of Systems Service Date: 01/10/17 Subjective: Pt is non verbal, no obvious sign of discomfort. Objective - Results Result Diagrams: 01/08/17 05:17 01/10/17 05:25 Recent Labs: Laboratory Last Values WBC 12.3 Th/cmm (4.8-10.8) H D 01/08/17 05:17 RBC 3.76 Mil/cmm (3.80-5.80) L 01/08/17 05:17 Hgb 12.3 gm/dL (12.6-17.4) L 01/08/17 05:17 Hct 35.8 % (39.0-49.0) L 01/08/17 05:17 MCV 95.4 fl (80-99) 01/08/17 05:17 MCH 32.7 pg (27.0-31.0) H 01/08/17 05:17 MCHC Differential 34.3 pg (28.0-36.0) 01/08/17 05:17 RDW 13.0 % (11.5-20.0) 01/08/17 05:17 Plt Count 139 Th/cmm (150-400) L 01/08/17 05:17 MPV 8.5 fl 01/08/17 05:17 Band Neutrophils % 2 % (0-10) 01/08/17 05:17 Neutrophils (Manual) 82 % (40-80) H 01/08/17 05:17 Lymphocytes 8 % (20-50) L 01/08/17 05:17 Monocytes 8 % (2-10) 01/08/17 05:17 Eosinophils 1 % (0-5) 01/06/17 10:50 Platelet Estimate ADEQUATE (NORMAL) 01/08/17 05:17 Platelet Morphology NORMAL (NORMAL) 01/06/17 12:32 Anisocytosis 1+ 01/06/17 12:32 RBC Morph Micro Appear ABNORMAL (NORMAL) 01/06/17 12:32 PT 12.9 SECONDS (9.5-11.5) H 01/06/17 10:50 INR 1.23 (0.5-1.4) 01/06/17 10:50 PTT (Actin FS) 37.0 SECONDS (26.0-38.0) 01/06/17 10:50 Sodium 142 mEq/L (136-145) 01/10/17 05:25 Potassium 3.6 mEq/L (3.5-5.1) 01/10/17 05:25 Chloride 112 mEq/L (98-107) H 01/10/17 05:25 Carbon Dioxide 26.2 mEq/L (21.0-31.0) 01/10/17 05:25 Anion Gap 7.4 (7.0-16.0) 01/10/17 05:25 BUN 30 mg/dL (7-25) H 01/10/17 05:25 Creatinine 0.7 mg/dL (0.7-1.3) 01/10/17 05:25 Est GFR ( Amer) TNP 01/10/17 05:25 Est GFR (Non-Af Amer) TNP 01/10/17 05:25 BUN/Creatinine Ratio 42.9 01/10/17 05:25 Glucose 91 mg/dL (70-105) 01/10/17 05:25 POC Glucose 92 MG/DL (70 - 105) 01/06/17 15:04 Whole Bld Lactic Acid 0.95 mmol/L (0.60-1.99) 01/06/17 10:53 Calcium 8.2 mg/dL (8.6-10.3) L 01/10/17 05:25 Phosphorus 1.7 mg/dL (2.5-5.0) L 01/10/17 05:25 Magnesium 2.5 mg/dL (1.9-2.7) 01/10/17 05:25 Total Bilirubin 1.2 mg/dL (0.3-1.0) H 01/10/17 05:25 AST 14 U/L (13-39) 01/10/17 05:25 ALT 16 U/L (7-52) 01/10/17 05:25 Alkaline Phosphatase 41 U/L (34-104) 01/10/17 05:25 Creatine Kinase 52 U/L (30-223) 01/06/17 10:50 Total Protein 5.1 gm/dL (6.0-8.3) L 01/10/17 05:25 Albumin 2.9 gm/dL (4.2-5.5) L 01/10/17 05:25 Globulin 2.2 gm/dL 01/10/17 05:25 Albumin/Globulin Ratio 1.3 (1.0-1.8) 01/10/17 05:25 Triglycerides 26 mg/dL (<150) 01/06/17 11:19 Cholesterol 86 mg/dL (<200) 01/06/17 11:19 LDL Cholesterol Direct 65 mg/dL (75-193) L 01/06/17 11:19 HDL Cholesterol 25 mg/dL (23-92) 01/06/17 11:19 TSH 0.39 uIU/ml (0.34-5.60) 01/06/17 11:59 PTH Intact 31 pg/mL (15-65) 01/06/17 12:09 Urine Source CATH 01/06/17 11:05 Urine Color YELLOW 01/06/17 11:05 Urine Clarity SL. CLOUDY (CLEAR) 01/06/17 11:05 Urine pH 6.0 (4.6 - 8.0) 01/06/17 11:05 Ur Specific [place] 1.025 (1.005-1.030) 01/06/17 11:05 Urine Protein NEGATIVE mg/dL (NEGATIVE) 01/06/17 11:05 Urine Glucose (UA) NEGATIVE mg/dL (NEGATIVE) 01/06/17 11:05 Urine Ketones TRACE mg/dL (NEGATIVE) 01/06/17 11:05 Urine Blood TRACE (NEGATIVE) 01/06/17 11:05 Urine Nitrate NEGATIVE (NEGATIVE) 01/06/17 11:05 Urine Bilirubin NEGATIVE (NEGATIVE) 01/06/17 11:05 Urine Urobilinogen 1.0 E.U./dL (0.2 - 1.0) 01/06/17 11:05 Ur Leukocyte Esterase TRACE (NEGATIVE) H 01/06/17 11:05 Urine RBC 2-3 /hpf (0-5) 01/06/17 11:05 Urine WBC 0-2 /hpf (0-5) 01/06/17 11:05 Ur Epithelial Cells OCCASIONAL /lpf (FEW) 01/06/17 11:05 Urine Bacteria NONE SEEN /hpf (NONE SEEN) 01/06/17 11:05 - Physical Exam Vitals and I&O: Vital Signs Temp 98.4 F 01/10/17 04:00 Pulse 68 01/10/17 04:00 Resp 17 01/10/17 04:00 BP 111/58 01/10/17 04:00 Pulse Ox 97 01/10/17 04:00 Intake & Output 01/09/17 01/10/17 01/10/17 18:59 06:59 18:59 Weight (lbs) 69.4 kg 68.969 kg Other: # Voids 2 # Bowel Movements 0 Active Medications: Current Medications Acetaminophen (Tylenol 650mg Supp) 650 mg RC Q4H PRN PRN Reason: Fever > 101 Stop: 03/10/17 13:04 Last Admin: 01/09/17 17:56 Dose: 650 mg Artificial Tears (Artificial Tears Ophth Soln) 1 drop EACH EYE BID LIZY Stop: 03/08/17 08:59 Last Admin: 01/10/17 09:55 Dose: 1 drop Ascorbic Acid (Vitamin C) 500 mg PO DAILY LIZY Stop: 03/08/17 08:59 Last Admin: 01/10/17 09:32 Dose: 500 mg Atropine Sulfate (Atropine Syringe) 1 mg IVP Q4HR PRN PRN Reason: HR BELOW 40 Stop: 03/09/17 08:32 Last Admin: 01/09/17 01:00 Dose: 1 mg Bisacodyl (Dulcolax 10 Mg Supp) 10 mg RC DAILY PRN PRN Reason: Constipation Stop: 03/07/17 17:05 Calcium/Vitamin D (Oscal W/Vitamin D) 1 tab PO DAILY LIZY Stop: 03/08/17 08:59 Last Admin: 01/10/17 09:32 Dose: 1 tab Cyanocobalamin (Vitamin B12) 500 mcg PO DAILY [facility]ZY Stop: 03/08/17 08:59 Last Admin: 01/10/17 09:32 Dose: 500 mcg Docusate Sodium (Colace) 100 mg PO DAILY [facility]ZY Stop: 03/08/17 08:59 Last Admin: 01/10/17 09:33 Dose: 100 mg Heparin Sodium (Porcine) (Heparin) 5,000 units SUBQ Q12HR [facility]ZY Stop: 03/08/17 20:59 Last Admin: 01/10/17 09:34 Dose: 5,000 units Dextrose/Sodium Chloride (D5-0.45ns) 1,000 mls @ 50 mls/hr IV .Q20H LIZY Stop: 03/07/17 15:19 Last Admin: 01/07/17 16:04 Dose: 50 mls/hr Potassium Chloride/Sodium Chloride (0.9% Ns W/20 Meq Kcl) 1,000 mls @ 50 mls/ hr IV .Q20H [facility]ZY Stop: 03/09/17 08:38 Last Admin: 01/09/17 07:42 Dose: 50 mls/hr Miscellaneous (Vte Chemical Prophylaxis Screen/ Admission) 1 ea MC PRN PRN PRN Reason: PROTOCOL Stop: 03/08/17 11:10 Polyethylene Glycol (Miralax) 17 gm PO DAILY LIZY Stop: 03/11/17 08:59 Last Admin: 01/10/17 09:33 Dose: 17 gm Potassium Chloride (Klor-Con) 20 meq PO DAILY LIZY Stop: 03/08/17 08:59 Last Admin: 01/10/17 09:35 Dose: 20 meq General: Alert, No acute distress HEENT: Atraumatic, PERRLA, EOMI Neck: Supple Cardiovascular: Regular rate, Normal S1, Normal S2 Abdomen: Bowel sounds, Soft, Other (non tender, no guarding, no rebound) Extremities: no Clubbing, no Cyanosis, no Edema Assessment/Plan - Problem List Patient Problems: All Active Problems Constipation (Acute) K59.00 Dementia (Acute) F03.90 Facial twitching (Acute) G51.4 Hypocalcemia (Acute) E83.51 Hypokalemia (Acute) E87.6 Hypomagnesemia (Acute) E83.42 Hypophosphatemia (Acute) E83.39 Sinus bradycardia (Acute) R00.1 - Assessment Assessment: # Fecal impaction Resolving with laxatives (colace and dulcolax) # Dilated CBD on CT MRCP shows non dilated CBD at 3mm, although distal portion not completely visualized. Cannot exlude a distal intraluminal defect, although given that the duct diameter is only 3mm, and there is abnormalities in the pt's LFTs, the probability of choledocholithiasis is small. ERCP in this patient to clarify this issue would pose significant risk, especially given the pts other numerous medical conditions. In the absence of any clinical or laboratory signs of biliary obstruction, the risk of ERCP outweighs any possible diagnostic or therapeutic benefit. This can be revisited if the clinical situation changes. Plan: - cont with laxative therapy m(miralax, colace, dulcolax) to prevent further impaction - ERCP is not planned at this point given the above discussion - cont with diet
[2017-01-10] MEDS: 0.9% NS w/20 mEq KCL 1,000 ML IV SCH (11:45)
[2017-01-10] MEDS ORDERED: Albuterol/Ipratropium Neb 3 ML AERS HHN PRN (13:47)
[2017-01-10] MEDS: Albuterol/Ipratropium Neb 3 ML AERS HHN SCH ×3 (15:06→23:30)
[2017-01-11] MEDS: Albuterol/Ipratropium Neb 3 ML AERS HHN SCH ×5 (03:26→19:44)
[2017-01-11] MEDS: 0.9% NS w/20 mEq KCL 1,000 ML IV SCH (07:04)
--- NOTE | 2017-01-11 08:12 | General Progress Note ---
Subjective - Review of Systems Service Date: 01/11/17 Subjective: Patient is awake, alert, no acute distress. Patient was seen and evaluated by neurology. Please see dictated report. Patient was seen and evaluated by GI. Please see dictated report. Patient noted to have elevated temperature this AM. Objective - Results Result Diagrams: 01/08/17 05:17 01/10/17 05:25 Recent Labs: Laboratory Last Values WBC 12.3 Th/cmm (4.8-10.8) H D 01/08/17 05:17 RBC 3.76 Mil/cmm (3.80-5.80) L 01/08/17 05:17 Hgb 12.3 gm/dL (12.6-17.4) L 01/08/17 05:17 Hct 35.8 % (39.0-49.0) L 01/08/17 05:17 MCV 95.4 fl (80-99) 01/08/17 05:17 MCH 32.7 pg (27.0-31.0) H 01/08/17 05:17 MCHC Differential 34.3 pg (28.0-36.0) 01/08/17 05:17 RDW 13.0 % (11.5-20.0) 01/08/17 05:17 Plt Count 139 Th/cmm (150-400) L 01/08/17 05:17 MPV 8.5 fl 01/08/17 05:17 Band Neutrophils % 2 % (0-10) 01/08/17 05:17 Neutrophils (Manual) 82 % (40-80) H 01/08/17 05:17 Lymphocytes 8 % (20-50) L 01/08/17 05:17 Monocytes 8 % (2-10) 01/08/17 05:17 Eosinophils 1 % (0-5) 01/06/17 10:50 Platelet Estimate ADEQUATE (NORMAL) 01/08/17 05:17 Platelet Morphology NORMAL (NORMAL) 01/06/17 12:32 Anisocytosis 1+ 01/06/17 12:32 RBC Morph Micro Appear ABNORMAL (NORMAL) 01/06/17 12:32 PT 12.9 SECONDS (9.5-11.5) H 01/06/17 10:50 INR 1.23 (0.5-1.4) 01/06/17 10:50 PTT (Actin FS) 37.0 SECONDS (26.0-38.0) 01/06/17 10:50 Sodium 142 mEq/L (136-145) 01/10/17 05:25 Potassium 3.6 mEq/L (3.5-5.1) 01/10/17 05:25 Chloride 112 mEq/L (98-107) H 01/10/17 05:25 Carbon Dioxide 26.2 mEq/L (21.0-31.0) 01/10/17 05:25 Anion Gap 7.4 (7.0-16.0) 01/10/17 05:25 BUN 30 mg/dL (7-25) H 01/10/17 05:25 Creatinine 0.7 mg/dL (0.7-1.3) 01/10/17 05:25 Est GFR ( Amer) TNP 01/10/17 05:25 Est GFR (Non-Af Amer) TNP 01/10/17 05:25 BUN/Creatinine Ratio 42.9 01/10/17 05:25 Glucose 91 mg/dL (70-105) 01/10/17 05:25 POC Glucose 92 MG/DL (70 - 105) 01/06/17 15:04 Whole Bld Lactic Acid 0.95 mmol/L (0.60-1.99) 01/06/17 10:53 Calcium 8.2 mg/dL (8.6-10.3) L 01/10/17 05:25 Phosphorus 1.7 mg/dL (2.5-5.0) L 01/10/17 05:25 Magnesium 2.5 mg/dL (1.9-2.7) 01/10/17 05:25 Total Bilirubin 1.2 mg/dL (0.3-1.0) H 01/10/17 05:25 AST 14 U/L (13-39) 01/10/17 05:25 ALT 16 U/L (7-52) 01/10/17 05:25 Alkaline Phosphatase 41 U/L (34-104) 01/10/17 05:25 Creatine Kinase 52 U/L (30-223) 01/06/17 10:50 Total Protein 5.1 gm/dL (6.0-8.3) L 01/10/17 05:25 Albumin 2.9 gm/dL (4.2-5.5) L 01/10/17 05:25 Globulin 2.2 gm/dL 01/10/17 05:25 Albumin/Globulin Ratio 1.3 (1.0-1.8) 01/10/17 05:25 Triglycerides 26 mg/dL (<150) 01/06/17 11:19 Cholesterol 86 mg/dL (<200) 01/06/17 11:19 LDL Cholesterol Direct 65 mg/dL (75-193) L 01/06/17 11:19 HDL Cholesterol 25 mg/dL (23-92) 01/06/17 11:19 TSH 0.39 uIU/ml (0.34-5.60) 01/06/17 11:59 PTH Intact 31 pg/mL (15-65) 01/06/17 12:09 Urine Source CATH 01/06/17 11:05 Urine Color YELLOW 01/06/17 11:05 Urine Clarity SL. CLOUDY (CLEAR) 01/06/17 11:05 Urine pH 6.0 (4.6 - 8.0) 01/06/17 11:05 Ur Specific [place] 1.025 (1.005-1.030) 01/06/17 11:05 Urine Protein NEGATIVE mg/dL (NEGATIVE) 01/06/17 11:05 Urine Glucose (UA) NEGATIVE mg/dL (NEGATIVE) 01/06/17 11:05 Urine Ketones TRACE mg/dL (NEGATIVE) 01/06/17 11:05 Urine Blood TRACE (NEGATIVE) 01/06/17 11:05 Urine Nitrate NEGATIVE (NEGATIVE) 01/06/17 11:05 Urine Bilirubin NEGATIVE (NEGATIVE) 01/06/17 11:05 Urine Urobilinogen 1.0 E.U./dL (0.2 - 1.0) 01/06/17 11:05 Ur Leukocyte Esterase TRACE (NEGATIVE) H 01/06/17 11:05 Urine RBC 2-3 /hpf (0-5) 01/06/17 11:05 Urine WBC 0-2 /hpf (0-5) 01/06/17 11:05 Ur Epithelial Cells OCCASIONAL /lpf (FEW) 01/06/17 11:05 Urine Bacteria NONE SEEN /hpf (NONE SEEN) 01/06/17 11:05 - Physical Exam Vitals and I&O: Vital Signs Temp 97.3 F 01/11/17 04:00 Pulse 94 01/11/17 08:03 Resp 20 01/11/17 08:03 BP 104/56 01/11/17 04:00 Pulse Ox 99 01/11/17 08:03 Intake & Output 01/10/17 01/11/17 01/11/17 18:59 06:59 18:59 Intake Total 300 965.833 Balance 300 965.833 Weight (lbs) 69.173 kg 69.853 kg Intake: Intake, IV Amount 965.833 0.9% NS w/20 mEq KCL 1, 965.833 000 ml @ 50 mls/hr IV . Q20H [facility] Rx#:[id number] Oral 300 Other: # Voids 3 3 # Bowel Movements 0 1 Active Medications: Current Medications Acetaminophen (Tylenol 650mg Supp) 650 mg RC Q4H PRN PRN Reason: Fever > 101 Stop: 03/10/17 13:04 Last Admin: 01/10/17 20:02 Dose: 650 mg Albuterol/Ipratropium (Duoneb Neb) 3 ml HHN Q4HRT LIZY Stop: 03/11/17 14:59 Last Admin: 01/11/17 08:03 Dose: 3 ml Albuterol/Ipratropium (Duoneb Neb) 3 ml HHN Q2HRT PRN PRN Reason: Wheezing Stop: 03/11/17 13:46 Artificial Tears (Artificial Tears Ophth Soln) 1 drop EACH EYE BID [facility] Stop: 03/08/17 08:59 Last Admin: 01/10/17 17:00 Dose: 1 drop Ascorbic Acid (Vitamin C) 500 mg PO DAILY [facility] Stop: 03/08/17 08:59 Last Admin: 01/10/17 09:32 Dose: 500 mg Atropine Sulfate (Atropine Syringe) 1 mg IVP Q4HR PRN PRN Reason: HR BELOW 40 Stop: 03/09/17 08:32 Last Admin: 01/09/17 01:00 Dose: 1 mg Bisacodyl (Dulcolax 10 Mg Supp) 10 mg RC DAILY PRN PRN Reason: Constipation Stop: 03/07/17 17:05 Calcium/Vitamin D (Oscal W/Vitamin D) 1 tab PO DAILY LIZY Stop: 03/08/17 08:59 Last Admin: 01/10/17 09:32 Dose: 1 tab Cyanocobalamin (Vitamin B12) 500 mcg PO DAILY LIZY Stop: 03/08/17 08:59 Last Admin: 01/10/17 09:32 Dose: 500 mcg Docusate Sodium (Colace) 100 mg PO DAILY LIZY Stop: 03/08/17 08:59 Last Admin: 01/10/17 09:33 Dose: 100 mg Heparin Sodium (Porcine) (Heparin) 5,000 units SUBQ Q12HR [facility]ZY Stop: 03/08/17 20:59 Last Admin: 01/10/17 20:12 Dose: 5,000 units Dextrose/Sodium Chloride (D5-0.45ns) 1,000 mls @ 50 mls/hr IV .Q20H [facility]ZY Stop: 03/07/17 15:19 Last Admin: 01/07/17 16:04 Dose: 50 mls/hr Potassium Chloride/Sodium Chloride (0.9% Ns W/20 Meq Kcl) 1,000 mls @ 50 mls/ hr IV .Q20H [facility]ZY Stop: 03/09/17 08:38 Last Admin: 01/11/17 07:04 Dose: 50 mls/hr Miscellaneous (Vte Chemical Prophylaxis Screen/ Admission) 1 ea MC PRN PRN PRN Reason: PROTOCOL Stop: 03/08/17 11:10 Polyethylene Glycol (Miralax) 17 gm PO DAILY LIZY Stop: 03/11/17 08:59 Last Admin: 01/10/17 09:33 Dose: 17 gm Potassium Chloride (Klor-Con) 20 meq PO DAILY LIZY Stop: 03/08/17 08:59 Last Admin: 01/10/17 09:35 Dose: 20 meq General: Alert, No acute distress HEENT: Atraumatic, PERRLA, EOMI Neck: Supple Cardiovascular: Regular rate, Normal S1, Normal S2 Lungs: Other (wheezing,) Abdomen: Bowel sounds, Soft, Other (non tender, no guarding, no rebound) Extremities: no Clubbing, no Cyanosis, no Edema Assessment/Plan - Problem List Patient Problems: All Active Problems Constipation (Acute) K59.00 Dementia (Acute) F03.90 Facial twitching (Acute) G51.4 Hypocalcemia (Acute) E83.51 Hypokalemia (Acute) E87.6 Hypomagnesemia (Acute) E83.42 Hypophosphatemia (Acute) E83.39 Sinus bradycardia (Acute) R00.1 - Assessment Assessment: ALOC ... improved. CT head NAD, CT carotid NAD. CVA per MRI head ... management per Dr. Franklin fever of unknown origin ... will order cbc, chest xray, ua, start rocephin 1gm IV MS acute exacerbation ... stable. Patient to continue steroids IV please see neurology consult, CT head neg, hypokalemia ... improved. K+ 4.3 hypocalcemia ... improved Ca+ hypophosphotemia ... improved Ph 4.1 hypomagnesemia ... improved Mg 2.8 dementia constipation ... GI consult. sinus bradycardia ... will order Cardiology consult..Dr. Colindres. please see dictated report. - Plan Plan: ALOC ... resolved. MRI head pending, CT head NAD, CT carotid NAD. MS acute exacerbation ... stable. Patient to continue steroids IV please see neurology consult, CT head neg, hypokalemia ... improved. K+ 4.3 hypocalcemia ... improved Ca+ hypophosphotemia ... improved Ph 4.1 hypomagnesemia ... improved Mg 2.8 dementia constipation ... GI consult. sinus bradycardia ... will order Cardiology consult..Dr. Colindres. please see dictated report. Nutritional Asmnt/Malnutr-PDOC - Dietary Evaluation Malnutrition Findings (Please click <Entered> for more info): Nutritional Asmnt/Malnutrition Start: 01/08/17 12: 55 Text: Status: Complete Freq: Document 01/08/17 12:56 NENA (Rec: 01/08/17 13:16 NENA [id number]) Nutritional Asmnt/Malnutrition Patient General Information Nutritional Screening Consult Diagnosis ALOC, acute MS exacerbation Pertinent Medical Hx/Surgical Hx Dementia, multiple sclerosis, constipation Subjective Information 76 year old male from SNF. RD consult for laura Huntley. Per RN notes, facial twitching on adm, currently NPO with swallow eval pending. Pt was awake during visit, followed RD with eyes, did not provide any information. Mild wasting to chest noted, loose skin to arms. Current Diet Order/ Nutrition Support NPO Pertinent Medications Vitamin C, Oscal W/Vitamin D, Vitamin B12, D5-0.45ns, Dulcolax, Colace Pertinent Labs 01/08: reviewed. Glucose 148H Nutritional Hx/Data Height 1.85 m Height (Calculated Centimeters) 185.4 Current Weight (lbs) 69.49 kg Weight (Calculated Kilograms) 69.5 Weight (Calculated Grams) 35354.4 [place] Body Weight 184 Weight Status Approriate GI Symptoms Usual diet at home [facility]: pureed, large portion lunch and dinner, 4oz house supplement Skin Integrity/Comment: Audi 12. Pressure area r foot and upper back, abrasion l knee and r leg Estimated Nutritional Goals BEE in Kcals: Using Current wt Calories/Kcals/Kg IBW 184lb/83.6kg with consideration skin integrity and BMI Kcals Calculated 0-2508kcal (25-30kcal/kg) Protein: Using Current wt Protein Calculated 84-109g (1-1.3g/kg) Fluid: ml 0-2508ml (1ml/kcal) Nutritional Problem 2. Problem Problem Increased prot needs related to Etiology skin integrity aeb Signs/Symptoms: air tester: pressure area to right foot and upper back, abrasion ro left knee and right lower leg 1. 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 Recommend regular diet, diet texture per swallow eval (pending). SNF order pureed. Expected Outcomes/Goals Expected Outcomes/Goals 1. PO intake to meet at least 75% of estimated nutritional needs.
--- NOTE | 2017-01-11 08:44 | Diagnostic Imaging Report ---
Portable chest x-ray HISTORY: Shortness of breath Heart size difficult to assess with portable technique and a very poor inspiration. Allowing for the poor inspiration, no focal prominent processes are seen. Compared to prior exam of January 06, 2017, there remains dilated loops of bowel in the abdomen. IMPRESSION: 1. Allowing for a poor inspiration, no definite focal pulmonary processes 2. Dilated bowel loops unchanged from January 06, 2017.
[2017-01-11] MEDS: Calcium Carb/Vit D 500 mg/200 U Tab PO SCH (09:20)
[2017-01-11] MEDS: Potassium Chloride 20 mEq ER Tab PO SCH (09:20)
[2017-01-11] MEDS: Polyvinyl Alcohol Ophth Soln 15 mL Bottle EACH EYE SCH ×2 (09:20→16:37)
[2017-01-11] MEDS: POLYETHYLENE GLYCOL 3350 17 GM PACK PO SCH (09:21)
[2017-01-11] MEDS: Multivitamin w/ Minerals Tab PO SCH (09:21)
[2017-01-11 09:42] LABS: HEMATOCRIT 37.8 % (41.0-60); HEMOGLOBIN 12.6 gm/dL (12-16); MEAN CELL VOLUME 97.2 fl (80-99); MEAN CORPUSCULAR HEMOGLOBIN 32.5 pg (27.0-31.0); MEAN CORPUSCULAR HGB CONC 33.4 pg (28.0-36.0); MEAN PLATELET VOLUME 8.7 fl; NEUTROPHILE ABSOLUTE 20.1 Th/cmm (1.8-8.0); PLATELET COUNT 87 Th/cmm (150-400); RED BLOOD COUNT 3.88 Mil/cmm (3.80-5.80); RED CELL DISTRIBUTION WIDTH 13.5 % (11.5-20.0)
[2017-01-11 09:55] LABS: WHITE BLOOD COUNT 21.5 Th/cmm (4.8-10.8)
[2017-01-11 10:04] LABS: BAND NEUTROPHILE 5 % (0-10); NEUTROPHILS 91 % (40-80); TOTAL CELLS COUNTED 100
[2017-01-11 10:05] LABS: PLATELET ESTIMATE DECREASED PLATELETS (NORMAL)
--- NOTE | 2017-01-11 10:38 | GI Progress Note ---
Subjective - Review of Systems Service Date: 01/11/17 Subjective: Pt is non verbal, no obvious sign of discomfort. Objective - Results Result Diagrams: 01/11/17 09:15 01/10/17 05:25 Recent Labs: Laboratory Last Values WBC 21.5 Th/cmm (4.8-10.8) H* D 01/11/17 09:15 RBC 3.88 Mil/cmm (3.80-5.80) 01/11/17 09:15 Hgb 12.6 gm/dL (12-16) 01/11/17 09:15 Hct 37.8 % (41.0-60) L 01/11/17 09:15 MCV 97.2 fl (80-99) 01/11/17 09:15 MCH 32.5 pg (27.0-31.0) H 01/11/17 09:15 MCHC Differential 33.4 pg (28.0-36.0) 01/11/17 09:15 RDW 13.5 % (11.5-20.0) 01/11/17 09:15 Plt Count 87 Th/cmm (150-400) L D 01/11/17 09:15 MPV 8.7 fl 01/11/17 09:15 Band Neutrophils % 5 % (0-10) 01/11/17 09:15 Neutrophils (Manual) 91 % (40-80) H 01/11/17 09:15 Lymphocytes 2 % (20-50) L 01/11/17 09:15 Monocytes 2 % (2-10) 01/11/17 09:15 Eosinophils 1 % (0-5) 01/06/17 10:50 Platelet Estimate DECREASED PLATELETS (NORMAL) 01/11/17 09:15 Platelet Morphology NORMAL (NORMAL) 01/06/17 12:32 Anisocytosis 1+ 01/06/17 12:32 RBC Morph Micro Appear ABNORMAL (NORMAL) 01/06/17 12:32 PT 12.9 SECONDS (9.5-11.5) H 01/06/17 10:50 INR 1.23 (0.5-1.4) 01/06/17 10:50 PTT (Actin FS) 37.0 SECONDS (26.0-38.0) 01/06/17 10:50 Sodium 142 mEq/L (136-145) 01/10/17 05:25 Potassium 3.6 mEq/L (3.5-5.1) 01/10/17 05:25 Chloride 112 mEq/L (98-107) H 01/10/17 05:25 Carbon Dioxide 26.2 mEq/L (21.0-31.0) 01/10/17 05:25 Anion Gap 7.4 (7.0-16.0) 01/10/17 05:25 BUN 30 mg/dL (7-25) H 01/10/17 05:25 Creatinine 0.7 mg/dL (0.7-1.3) 01/10/17 05:25 Est GFR ( Amer) TNP 01/10/17 05:25 Est GFR (Non-Af Amer) TNP 01/10/17 05:25 BUN/Creatinine Ratio 42.9 01/10/17 05:25 Glucose 91 mg/dL (70-105) 01/10/17 05:25 POC Glucose 92 MG/DL (70 - 105) 01/06/17 15:04 Whole Bld Lactic Acid 0.95 mmol/L (0.60-1.99) 01/06/17 10:53 Calcium 8.2 mg/dL (8.6-10.3) L 01/10/17 05:25 Phosphorus 1.7 mg/dL (2.5-5.0) L 01/10/17 05:25 Magnesium 2.5 mg/dL (1.9-2.7) 01/10/17 05:25 Total Bilirubin 1.2 mg/dL (0.3-1.0) H 01/10/17 05:25 AST 14 U/L (13-39) 01/10/17 05:25 ALT 16 U/L (7-52) 01/10/17 05:25 Alkaline Phosphatase 41 U/L (34-104) 01/10/17 05:25 Creatine Kinase 52 U/L (30-223) 01/06/17 10:50 Total Protein 5.1 gm/dL (6.0-8.3) L 01/10/17 05:25 Albumin 2.9 gm/dL (4.2-5.5) L 01/10/17 05:25 Globulin 2.2 gm/dL 01/10/17 05:25 Albumin/Globulin Ratio 1.3 (1.0-1.8) 01/10/17 05:25 Triglycerides 26 mg/dL (<150) 01/06/17 11:19 Cholesterol 86 mg/dL (<200) 01/06/17 11:19 LDL Cholesterol Direct 65 mg/dL (75-193) L 01/06/17 11:19 HDL Cholesterol 25 mg/dL (23-92) 01/06/17 11:19 TSH 0.39 uIU/ml (0.34-5.60) 01/06/17 11:59 PTH Intact 31 pg/mL (15-65) 01/06/17 12:09 Urine Source CATH 01/06/17 11:05 Urine Color YELLOW 01/06/17 11:05 Urine Clarity SL. CLOUDY (CLEAR) 01/06/17 11:05 Urine pH 6.0 (4.6 - 8.0) 01/06/17 11:05 Ur Specific [place] 1.025 (1.005-1.030) 01/06/17 11:05 Urine Protein NEGATIVE mg/dL (NEGATIVE) 01/06/17 11:05 Urine Glucose (UA) NEGATIVE mg/dL (NEGATIVE) 01/06/17 11:05 Urine Ketones TRACE mg/dL (NEGATIVE) 01/06/17 11:05 Urine Blood TRACE (NEGATIVE) 01/06/17 11:05 Urine Nitrate NEGATIVE (NEGATIVE) 01/06/17 11:05 Urine Bilirubin NEGATIVE (NEGATIVE) 01/06/17 11:05 Urine Urobilinogen 1.0 E.U./dL (0.2 - 1.0) 01/06/17 11:05 Ur Leukocyte Esterase TRACE (NEGATIVE) H 01/06/17 11:05 Urine RBC 2-3 /hpf (0-5) 01/06/17 11:05 Urine WBC 0-2 /hpf (0-5) 01/06/17 11:05 Ur Epithelial Cells OCCASIONAL /lpf (FEW) 01/06/17 11:05 Urine Bacteria NONE SEEN /hpf (NONE SEEN) 01/06/17 11:05 - Physical Exam Vitals and I&O: Vital Signs Temp 97.3 F 01/11/17 04:00 Pulse 94 01/11/17 08:03 Resp 20 01/11/17 08:03 BP 104/56 01/11/17 04:00 Pulse Ox 99 01/11/17 08:03 Intake & Output 01/10/17 01/11/17 01/11/17 18:59 06:59 18:59 Intake Total 300 965.833 Balance 300 965.833 Weight (lbs) 69.173 kg 69.853 kg Intake: Intake, IV Amount 965.833 0.9% NS w/20 mEq KCL 1, 965.833 000 ml @ 50 mls/hr IV . Q20H [facility] Rx#:[id number] Oral 300 Other: # Voids 3 3 # Bowel Movements 0 1 Active Medications: Current Medications Acetaminophen (Tylenol 650mg Supp) 650 mg RC Q4H PRN PRN Reason: Fever > 101 Stop: 03/10/17 13:04 Last Admin: 01/11/17 09:19 Dose: 650 mg Albuterol/Ipratropium (Duoneb Neb) 3 ml HHN Q4HRT [facility] Stop: 03/11/17 14:59 Last Admin: 01/11/17 08:03 Dose: 3 ml Albuterol/Ipratropium (Duoneb Neb) 3 ml HHN Q2HRT PRN PRN Reason: Wheezing Stop: 03/11/17 13:46 Artificial Tears (Artificial Tears Ophth Soln) 1 drop EACH EYE BID [facility] Stop: 03/08/17 08:59 Last Admin: 01/11/17 09:20 Dose: 1 drop Ascorbic Acid (Vitamin C) 500 mg PO DAILY [facility] Stop: 03/08/17 08:59 Last Admin: 01/11/17 09:21 Dose: 500 mg Atropine Sulfate (Atropine Syringe) 1 mg IVP Q4HR PRN PRN Reason: HR BELOW 40 Stop: 03/09/17 08:32 Last Admin: 01/09/17 01:00 Dose: 1 mg Bisacodyl (Dulcolax 10 Mg Supp) 10 mg RC DAILY PRN PRN Reason: Constipation Stop: 03/07/17 17:05 Calcium/Vitamin D (Oscal W/Vitamin D) 1 tab PO DAILY [facility] Stop: 03/08/17 08:59 Last Admin: 01/11/17 09:20 Dose: 1 tab Cyanocobalamin (Vitamin B12) 500 mcg PO DAILY [facility] Stop: 03/08/17 08:59 Last Admin: 01/11/17 09:20 Dose: 500 mcg Docusate Sodium (Colace) 100 mg PO DAILY [facility] Stop: 03/08/17 08:59 Last Admin: 01/11/17 09:21 Dose: 100 mg Heparin Sodium (Porcine) (Heparin) 5,000 units SUBQ Q12HR [facility] Stop: 03/08/17 20:59 Last Admin: 01/11/17 09:20 Dose: 5,000 units Dextrose/Sodium Chloride (D5-0.45ns) 1,000 mls @ 50 mls/hr IV .Q20H [facility] Stop: 03/07/17 15:19 Last Admin: 01/07/17 16:04 Dose: 50 mls/hr Potassium Chloride/Sodium Chloride (0.9% Ns W/20 Meq Kcl) 1,000 mls @ 50 mls/ hr IV .Q20H [facility] Stop: 03/09/17 08:38 Last Admin: 01/11/17 07:04 Dose: 50 mls/hr Ceftriaxone Sodium 1 gm/ (Sodium Chloride) 50 mls @ 100 mls/hr IV Q24HR [facility] Stop: 03/12/17 08:14 Miscellaneous (Vte Chemical Prophylaxis Screen/ Admission) 1 [facility] PRN PRN PRN Reason: PROTOCOL Stop: 03/08/17 11:10 Polyethylene Glycol (Miralax) 17 gm PO DAILY [facility] Stop: 03/11/17 08:59 Last Admin: 01/11/17 09:21 Dose: 17 gm Potassium Chloride (Klor-Con) 20 meq PO DAILY [facility] Stop: 03/08/17 08:59 Last Admin: 01/11/17 09:20 Dose: 20 meq General: Alert, No acute distress HEENT: Atraumatic, PERRLA, EOMI Neck: Supple Cardiovascular: Regular rate, Normal S1, Normal S2 Lungs: Other (wheezing,) Abdomen: Bowel sounds, Soft, Other (non tender, no guarding, no rebound) Extremities: no Clubbing, no Cyanosis, no Edema Assessment/Plan - Problem List Patient Problems: All Active Problems Constipation (Acute) K59.00 Dementia (Acute) F03.90 Facial twitching (Acute) G51.4 Hypocalcemia (Acute) E83.51 Hypokalemia (Acute) E87.6 Hypomagnesemia (Acute) E83.42 Hypophosphatemia (Acute) E83.39 Sinus bradycardia (Acute) R00.1 - Assessment Assessment: # Fecal impaction Resolving with laxatives (colace and dulcolax) # Dilated CBD on CT MRCP shows non dilated CBD at 3mm, although distal portion not completely visualized. Cannot exlude a distal intraluminal defect, although given that the duct diameter is only 3mm, and there is abnormalities in the pt's LFTs, the probability of choledocholithiasis is small. ERCP in this patient to clarify this issue would pose significant risk, especially given the pts other numerous medical conditions. In the absence of any clinical or laboratory signs of biliary obstruction, the risk of ERCP outweighs any possible diagnostic or therapeutic benefit. This can be revisited if the clinical situation changes. Fever today with leukocytosis. Will add CMP to labs to ensure this is not early biliary obstruction, although doubt this. Plan: - cont with laxative therapy m(miralax, colace, dulcolax) to prevent further impaction - ERCP is not planned at this point given the above discussion - cont with diet - agree with empiric abx - CMP to track LFTs in setting of fever and leukocytosis
[2017-01-11] MEDS: cefTRIAXone 1 GM in Sodium Chloride 0.9% 50 ML IV SCH (11:00)
[2017-01-11 11:17] LABS: ALB/GLOB RATIO 1.2 (1.0-1.8); ALKALINE PHOSPHATASE 54 U/L (34-104); ANION GAP 10.3 (7.0-16.0); BUN - UREA NITROGEN 24 mg/dL (7-25); CALCIUM SERUM 8.2 mg/dL (8.6-10.3); CARBON DIOXIDE 22.7 mEq/L (21.0-31.0); CHLORIDE 111 mEq/L (98-107); CREATININE - SERUM 0.6 mg/dL (0.7-1.3); GLUCOSE 164 mg/dL (70-105); SGOT 10 U/L (13-39); SGPT/ALT 12 U/L (7-52); SODIUM SERUM 141 mEq/L (136-145)
[2017-01-11] MEDS ORDERED: Diatrizoate Meglumine/Diatri 30 mL Sol PO ONE (13:49)
--- NOTE | 2017-01-11 15:09 | Consultation ---
DATE OF CONSULTATION: 01/11/2017 REFERRING PHYSICIAN: Dr. Tucker. REASON FOR CONSULTATION: Gallstones/small-bowel obstruction. Thank you for referring this patient to me. HISTORY OF PRESENT ILLNESS: This 76-year-old male admitted because of facial twitching. He has had Neurology evaluation, CT scans and MRI, which are unremarkable. Additionally, he has dilatation of small bowel with fecal impaction and gallstones. The patient has been seen by Gastroenterology. There is some elevation of the bilirubin. HIDA scan is negative. MRI shows question of distal common duct obstruction. PHYSICAL EXAMINATION: The patient is noncommunicative. Abdomen is flat and soft with minimal tenderness. RECOMMENDATIONS: 1. GI evaluation is to continue and likely will need ERCP. 2. Small bowel series has been ordered. JOB# [id number]
[2017-01-11] MEDS: KCL 20mEq/100mL Premix 20 MEQ/100 ML PIGGYBACK IV SCH ×2 (16:31→19:05)
[2017-01-11 16:36] LABS: URINE BILIRUBIN SMALL (NEGATIVE); URINE BLOOD MODERATE (NEGATIVE); URINE GLUCOSE (UA) 100 mg/dL (NEGATIVE); URINE KETONE 15 mg/dL (NEGATIVE); URINE PH 5.5 (4.6 - 8.0); URINE PROTEIN 100 mg/dL (NEGATIVE); URINE UROBILINOGEN 0.2 E.U./dL (0.2 - 1.0)
[2017-01-11] MEDS: Atorvastatin Calcium 10 MG TAB PO SCH (16:36)
[2017-01-11 17:01] LABS: URINE COLOR YELLOW
[2017-01-11 17:02] LABS: URINE AMORPHOUS SEDIMENT MODERATE URATES (NONE SEEN); URINE BACTERIA MODERATE /hpf (NONE SEEN); URINE EPITHELIAL CELLS FEW /lpf (FEW); URINE FINE GRANULAR CAST 0-2 /lpf (NONE SEEN)
[2017-01-11 17:24] LABS: CHOLESTEROL 163 mg/dL (<200); TRIGLYCERIDES 343 mg/dL (<150)
[2017-01-11 17:49] LABS: URINE WBC 50-100 /hpf (0-5)
[2017-01-12] MEDS: Albuterol/Ipratropium Neb 3 ML AERS HHN SCH ×7 (00:05→23:28)
[2017-01-12] MEDS: Diltiazem 5 mg/mL 5mL Vial IVP PRN ×4 (04:22→20:50)
[2017-01-12 04:24] LABS: HEMOGLOBIN 12.8 gm/dL (12-16); MEAN CORPUSCULAR HEMOGLOBIN 32.4 pg (27.0-31.0)
[2017-01-12 04:38] LABS: HEMATOCRIT 37.7 % (41.0-60); MEAN CELL VOLUME 95.5 fl (80-99); MEAN CORPUSCULAR HGB CONC 33.9 pg (28.0-36.0); MEAN PLATELET VOLUME 8.3 fl; PLATELET COUNT 102 Th/cmm (150-400); RED BLOOD COUNT 3.95 Mil/cmm (3.80-5.80); RED CELL DISTRIBUTION WIDTH 13.7 % (11.5-20.0)
[2017-01-12 04:54] LABS: ALKALINE PHOSPHATASE 53 U/L (34-104); ANION GAP 9.1 (7.0-16.0); BILIRUBIN,TOTAL 0.8 mg/dL (0.3-1.0); BUN - UREA NITROGEN 22 mg/dL (7-25); BUN/CREATININE RATIO 36.7; CALCIUM SERUM 8.4 mg/dL (8.6-10.3); CARBON DIOXIDE 24.1 mEq/L (21.0-31.0); CHLORIDE 117 mEq/L (98-107); CREATININE - SERUM 0.6 mg/dL (0.7-1.3); GLUCOSE 105 mg/dL (70-105); POTASSIUM SERUM 3.2 mEq/L (3.5-5.1); SGOT 10 U/L (13-39); SGPT/ALT 12 U/L (7-52); SODIUM SERUM 147 mEq/L (136-145)
[2017-01-12 05:05] LABS: WHITE BLOOD COUNT 18.9 Th/cmm (4.8-10.8)
[2017-01-12 05:24] LABS: TOTAL CELLS COUNTED 100
[2017-01-12 05:25] LABS: BAND NEUTROPHILE 10 % (0-10); NEUTROPHILS 86 % (40-80)
[2017-01-12 05:26] LABS: PLATELET ESTIMATE SLIGHT DECREASED (NORMAL)
[2017-01-12] MEDS ORDERED: Diltiazem 5 mg/mL 5mL Vial IVP STA (06:28)
[2017-01-12] MEDS: 0.9% NS w/20 mEq KCL 1,000 ML IV SCH (06:45)
--- NOTE | 2017-01-12 08:22 | Diagnostic Imaging Report ---
Exam: Small bowel follow-through HISTORY: Small bowel obstruction. Findings: The KUB of the abdomen was reviewed. The study demonstrates significant distention of small bowel and large bowel loops with air. The stomach distended with air Large amount of fecal content in the rectum suggestive of fecal impaction Sequential the x-ray examination of the abdomen was obtained status post administration of oral contrast. The study demonstrates slow progression of contrast material through the stomach into the small bowel with delayed stress opacification into the colon. There is no evidence of small bowel obstruction. Fecal impaction is noted throughout the colon particularly rectosigmoid rectosigmoid junction. Bony structures are unremarkable for degenerative osteoarthritic changes. IMPRESSION: 1. Severe fecal impaction large amount of fecal content in the rectosigmoid junction and rectum. 2. Distended the small bowel loops suggestive of the distal colon obstruction as well as distention of the large bowel loops throughout.
[2017-01-12] MEDS: cefTRIAXone 1 GM in Sodium Chloride 0.9% 50 ML IV SCH (08:30)
[2017-01-12] MEDS ORDERED: Sodium Chloride 0.9% 1,000 ML IV ONE (08:30)
--- NOTE | 2017-01-12 08:33 | General Progress Note ---
Subjective - Review of Systems Service Date: 01/12/17 Subjective: Patient transferred to ICU due rapid heart rate of 170's. Patient was given a breathing treatment prior to transfer. Patient also with low grade fever and has possible SBO. currently NPO. On IV fluids. Objective - Results Result Diagrams: 01/12/17 04:12 01/12/17 04:12 Recent Labs: Laboratory Last Values WBC 18.9 Th/cmm (4.8-10.8) H 01/12/17 04:12 RBC 3.95 Mil/cmm (3.80-5.80) 01/12/17 04:12 Hgb 12.8 gm/dL (12-16) 01/12/17 04:12 Hct 37.7 % (41.0-60) L 01/12/17 04:12 MCV 95.5 fl (80-99) 01/12/17 04:12 MCH 32.4 pg (27.0-31.0) H 01/12/17 04:12 MCHC Differential 33.9 pg (28.0-36.0) 01/12/17 04:12 RDW 13.7 % (11.5-20.0) 01/12/17 04:12 Plt Count 102 Th/cmm (150-400) L 01/12/17 04:12 MPV 8.3 fl 01/12/17 04:12 Band Neutrophils % 10 % (0-10) 01/12/17 04:12 Neutrophils (Manual) 86 % (40-80) H 01/12/17 04:12 Lymphocytes 3 % (20-50) L 01/12/17 04:12 Monocytes 1 % (2-10) L 01/12/17 04:12 Eosinophils 1 % (0-5) 01/06/17 10:50 Platelet Estimate SLIGHT DECREASED (NORMAL) 01/12/17 04:12 Platelet Morphology NORMAL (NORMAL) 01/06/17 12:32 Anisocytosis 1+ 01/06/17 12:32 RBC Morph Micro Appear ABNORMAL (NORMAL) 01/06/17 12:32 PT 12.9 SECONDS (9.5-11.5) H 01/06/17 10:50 INR 1.23 (0.5-1.4) 01/06/17 10:50 PTT (Actin FS) 37.0 SECONDS (26.0-38.0) 01/06/17 10:50 Sodium 147 mEq/L (136-145) H 01/12/17 04:12 Potassium 3.2 mEq/L (3.5-5.1) L 01/12/17 04:12 Chloride 117 mEq/L (98-107) H 01/12/17 04:12 Carbon Dioxide 24.1 mEq/L (21.0-31.0) 01/12/17 04:12 Anion Gap 9.1 (7.0-16.0) 01/12/17 04:12 BUN 22 mg/dL (7-25) 01/12/17 04:12 Creatinine 0.6 mg/dL (0.7-1.3) L 01/12/17 04:12 Est GFR ( Amer) TNP 01/12/17 04:12 Est GFR (Non-Af Amer) TNP 01/12/17 04:12 BUN/Creatinine Ratio 36.7 01/12/17 04:12 Glucose 105 mg/dL (70-105) 01/12/17 04:12 POC Glucose 138 MG/DL (70 - 105) H 01/11/17 21:55 Whole Bld Lactic Acid 0.95 mmol/L (0.60-1.99) 01/06/17 10:53 Calcium 8.4 mg/dL (8.6-10.3) L 01/12/17 04:12 Phosphorus 1.7 mg/dL (2.5-5.0) L 01/10/17 05:25 Magnesium 2.5 mg/dL (1.9-2.7) 01/11/17 09:15 Total Bilirubin 0.8 mg/dL (0.3-1.0) 01/12/17 04:12 AST 10 U/L (13-39) L 01/12/17 04:12 ALT 12 U/L (7-52) 01/12/17 04:12 Alkaline Phosphatase 53 U/L (34-104) 01/12/17 04:12 Creatine Kinase 52 U/L (30-223) 01/06/17 10:50 Total Protein 5.5 gm/dL (6.0-8.3) L 01/12/17 04:12 Albumin 2.8 gm/dL (4.2-5.5) L 01/12/17 04:12 Globulin 2.7 gm/dL 01/12/17 04:12 Albumin/Globulin Ratio 1.0 (1.0-1.8) 01/12/17 04:12 Triglycerides 343 mg/dL (<150) H 01/11/17 09:15 Cholesterol 163 mg/dL (<200) 01/11/17 09:15 LDL Cholesterol Direct 82 mg/dL (75-193) 01/11/17 09:15 HDL Cholesterol 46 mg/dL (23-92) 01/11/17 09:15 TSH 0.39 uIU/ml (0.34-5.60) 01/06/17 11:59 PTH Intact 31 pg/mL (15-65) 01/06/17 12:09 Urine Source CATH 01/11/17 16:00 Urine Color YELLOW 01/11/17 16:00 Urine Clarity CLOUDY (CLEAR) 01/11/17 16:00 Urine pH 5.5 (4.6 - 8.0) 01/11/17 16:00 Ur Specific Col[place] >= 1.030 (1.005-1.030) 01/11/17 16:00 Urine Protein 100 mg/dL (NEGATIVE) H 01/11/17 16:00 Urine Glucose (UA) 100 mg/dL (NEGATIVE) H 01/11/17 16:00 Urine Ketones 15 mg/dL (NEGATIVE) H 01/11/17 16:00 Urine Blood MODERATE (NEGATIVE) H 01/11/17 16:00 Urine Nitrate NEGATIVE (NEGATIVE) 01/11/17 16:00 Urine Bilirubin SMALL (NEGATIVE) H 01/11/17 16:00 Urine Urobilinogen 0.2 E.U./dL (0.2 - 1.0) 01/11/17 16:00 Ur Leukocyte Esterase SMALL (NEGATIVE) H 01/11/17 16:00 Urine RBC 5-10 /hpf (0-5) H 01/11/17 16:00 Urine WBC 50-100 /hpf (0-5) H 01/11/17 16:00 Ur Epithelial Cells FEW /lpf (FEW) 01/11/17 16:00 Amorphous Sediment MODERATE URATES (NONE SEEN) 01/11/17 16:00 Urine Bacteria MODERATE /hpf (NONE SEEN) 01/11/17 16:00 Fine Granular Casts 0-2 /lpf (NONE SEEN) H 01/11/17 16:00 Urine Yeast FEW /hpf (NONE SEEN) H 01/11/17 16:00 - Physical Exam Vitals and I&O: Vital Signs Temp 99.3 F 01/12/17 04:00 Pulse 120 01/12/17 07:25 Resp 18 01/12/17 07:20 BP 93/41 01/12/17 07:00 Pulse Ox 99 01/12/17 07:20 Intake & Output 01/11/17 01/12/17 01/12/17 18:59 06:59 18:59 Intake Total 7236.910 8208 Balance 4748.852 6162 Weight (lbs) 69.853 kg 69.173 kg Intake: Intake, IV Amount 5847.274 6288 0.9% NS w/20 mEq KCL 1, 715.267 9279 000 ml @ 50 mls/hr IV . Q20H [facility] Rx#:[id number] KCL 20mEq/100mL Premix 20 100 meq In 100 ml @ 50 mls/ hr IV Q2H [facility] Rx#: [id number] 1 gm In 50 Sodium Chloride 0.9% 50 ml @ 100 mls/hr IV Q24HR [facility] Rx#:[id number] Oral 0 Other: # Voids 3 1 # Bowel Movements 1 1 Active Medications: Current Medications Acetaminophen (Tylenol 650mg Supp) 650 mg RC Q4H PRN PRN Reason: Fever > 101 Stop: 03/10/17 13:04 Last Admin: 01/12/17 03:37 Dose: 650 mg Albuterol/Ipratropium (Duoneb Neb) 3 ml HHN Q4HRT [facility] Stop: 03/11/17 14:59 Last Admin: 01/12/17 07:20 Dose: 3 ml Albuterol/Ipratropium (Duoneb Neb) 3 ml HHN Q2HRT PRN PRN Reason: Wheezing Stop: 03/11/17 13:46 Artificial Tears (Artificial Tears Ophth Soln) 1 drop EACH EYE BID [facility] Stop: 03/08/17 08:59 Last Admin: 01/11/17 16:37 Dose: 1 drop Ascorbic Acid (Vitamin C) 500 mg PO DAILY [facility] Stop: 03/08/17 08:59 Last Admin: 01/11/17 09:21 Dose: 500 mg Aspirin (Aspirin Chewable) 81 mg PO DAILY [facility] Stop: 03/13/17 08:59 Atorvastatin Calcium (Lipitor) 20 mg PO DAILY [facility] PRN Reason: Protocol Stop: 03/12/17 16:29 Last Admin: 01/11/17 16:36 Dose: 20 mg Atropine Sulfate (Atropine Syringe) 1 mg IVP Q4HR PRN PRN Reason: HR BELOW 40 Stop: 03/09/17 08:32 Last Admin: 01/09/17 01:00 Dose: 1 mg Bisacodyl (Dulcolax 10 Mg Supp) 10 mg RC DAILY PRN PRN Reason: Constipation Stop: 03/07/17 17:05 Calcium/Vitamin D (Oscal W/Vitamin D) 1 tab PO DAILY [facility] Stop: 03/08/17 08:59 Last Admin: 01/11/17 09:20 Dose: 1 tab Cyanocobalamin (Vitamin B12) 500 mcg PO DAILY [facility] Stop: 03/08/17 08:59 Last Admin: 01/11/17 09:20 Dose: 500 mcg Diltiazem HCl (Cardizem) 20 mg IVP Q4HR PRN PRN Reason: FOR HR>130 Stop: 03/13/17 03:53 Last Admin: 01/12/17 04:22 Dose: 20 mg Docusate Sodium (Colace) 100 mg PO DAILY [facility] Stop: 03/08/17 08:59 Last Admin: 01/11/17 09:21 Dose: 100 mg Heparin Sodium (Porcine) (Heparin) 5,000 units SUBQ Q12HR [facility] Stop: 03/08/17 20:59 Last Admin: 01/11/17 20:45 Dose: 5,000 units Ceftriaxone Sodium 1 gm/ (Sodium Chloride) 50 mls @ 100 mls/hr IV Q24HR [facility] Stop: 03/12/17 08:14 Last Infusion: 01/11/17 11:30 Dose: Infused Potassium Chloride/Dextrose/Sod Cl (D5-0.9ns W/40 Meq Kcl) 1,000 mls @ 75 mls/ hr IV .[id number] [facility] Stop: 03/13/17 08:20 Miscellaneous (Vte Chemical Prophylaxis Screen/ Admission) 1 [facility] PRN PRN PRN Reason: PROTOCOL Stop: 03/08/17 11:10 Polyethylene Glycol (Miralax) 17 gm PO DAILY [facility] Stop: 03/11/17 08:59 Last Admin: 01/11/17 09:21 Dose: 17 gm Potassium Chloride (Klor-Con) 20 meq PO DAILY [facility] Stop: 03/08/17 08:59 Last Admin: 01/11/17 09:20 Dose: 20 meq General: Alert, No acute distress HEENT: Atraumatic, PERRLA, EOMI Neck: Supple Cardiovascular: Regular rate, Normal S1, Normal S2 Lungs: Other (wheezing,) Abdomen: Bowel sounds, Soft, Other (non tender, no guarding, no rebound) Extremities: no Clubbing, no Cyanosis, no Edema Assessment/Plan - Problem List Patient Problems: All Active Problems Constipation (Acute) K59.00 Dementia (Acute) F03.90 Facial twitching (Acute) G51.4 Hypocalcemia (Acute) E83.51 Hypokalemia (Acute) E87.6 Hypomagnesemia (Acute) E83.42 Hypophosphatemia (Acute) E83.39 Sinus bradycardia (Acute) R00.1 - Assessment Assessment: ALOC ... improved. CT head NAD, CT carotid NAD. hypotensive ... will continue IV fluid support. Electrolyte imbalance ... will continue to monitor daily and correct as needed. CVA per MRI head ... management per Dr. Franklin Leukocytosis ... DC Rocephin. Will start Vancomycin IV and Zosyn IV per pharmacy MS acute exacerbation ... stable. Patient to continue steroids IV please see neurology consult, CT head neg, constipation r/o ileus vs SBO ... GI consult/ General Surgical Consult. sinus tachycardia ... will order Cardiology consult..Dr. Colindres. - Plan Plan: ALOC ... resolved. MRI head pending, CT head NAD, CT carotid NAD. MS acute exacerbation ... stable. Patient to continue steroids IV please see neurology consult, CT head neg, hypokalemia ... improved. K+ 4.3 hypocalcemia ... improved Ca+ hypophosphotemia ... improved Ph 4.1 hypomagnesemia ... improved Mg 2.8 dementia constipation ... GI consult. sinus bradycardia ... will order Cardiology consult..Dr. Colindres. please see dictated report. Nutritional Asmnt/Malnutr-PDOC - Dietary Evaluation Malnutrition Findings (Please click <Entered> for more info): Nutritional Asmnt/Malnutrition Start: 01/08/17 12: 55 Text: Status: Complete Freq: Document 01/08/17 12:56 GSUN (Rec: 01/08/17 13:16 [email or web address] [id number]) Nutritional Asmnt/Malnutrition Patient General Information Nutritional Screening Consult Diagnosis ALOC, acute MS exacerbation Pertinent Medical Hx/Surgical Hx Dementia, multiple sclerosis, constipation Subjective Information 76 year old male from SNF. RD consult for laura Huntley. Per RN notes, facial twitching on adm, currently NPO with swallow eval pending. Pt was awake during visit, followed RD with eyes, did not provide any information. Mild wasting to chest noted, loose skin to arms. Current Diet Order/ Nutrition Support NPO Pertinent Medications Vitamin C, Oscal W/Vitamin D, Vitamin B12, D5-0.45ns, Dulcolax, Colace Pertinent Labs 01/08: reviewed. Glucose 148H Nutritional Hx/Data Height 1.85 m Height (Calculated Centimeters) 185.4 Current Weight (lbs) 69.49 kg Weight (Calculated Kilograms) 69.5 Weight (Calculated Grams) 24592.4 [facility] Body Weight 184 Weight Status Approriate GI Symptoms Usual diet at home [facility]: pureed, large portion lunch and dinner, 4oz house supplement Skin Integrity/Comment: Audi 12. Pressure area r foot and upper back, abrasion l knee and r leg Estimated Nutritional Goals BEE in Kcals: Using Current wt Calories/Kcals/Kg IBW 184lb/83.6kg with consideration skin integrity and BMI Kcals Calculated 2090-2508kcal (25-30kcal/kg) Protein: Using Current wt Protein Calculated 84-109g (1-1.3g/kg) Fluid: ml 2090-2508ml (1ml/kcal) Nutritional Problem 2. 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 Recommend regular diet, diet texture per swallow eval (pending). SNF order pureed. Expected Outcomes/Goals Expected Outcomes/Goals 1. PO intake to meet at least 75% of estimated nutritional needs.
[2017-01-12] MEDS: D5-0.9NS w/40 mEq KCL 1,000 ML IV SCH ×2 (09:00→22:53)
[2017-01-12] MEDS ORDERED: Potassium Phosphate 40 MMOLE in Sodium Chloride 0.9% 250 ML IV ONE ×2 (09:30→10:30)
[2017-01-12] MEDS: Vancomycin HCl 1.5 GM in Sodium Chloride 0.9% 500 ML IV SCH (09:59)
[2017-01-12] MEDS: Potassium Chloride 20 mEq ER Tab PO SCH (09:59)
[2017-01-12] MEDS: Polyvinyl Alcohol Ophth Soln 15 mL Bottle EACH EYE SCH ×2 (09:59→17:38)
[2017-01-12] MEDS: Multivitamin w/ Minerals Tab PO SCH (10:00)
[2017-01-12] MEDS: Calcium Carb/Vit D 500 mg/200 U Tab PO SCH (10:00)
[2017-01-12] MEDS: POLYETHYLENE GLYCOL 3350 17 GM PACK PO SCH (10:00)
[2017-01-12] MEDS: Atorvastatin Calcium 10 MG TAB PO SCH (10:00)
[2017-01-12] MEDS: Aspirin 81mg Chewable Tab PO SCH (10:00)
[2017-01-12] MEDS: Levetiracetam 500mg/100mL 500 MG/100 ML BAG IV SCH ×2 (10:40→21:48)
--- NOTE | 2017-01-12 10:46 | General Progress Note ---
Subjective - Review of Systems Service Date: 01/12/17 Events since last encounter: in ICU due to tachy had good BM SB series shows fecal impaction only will follow as needed Objective - Results Result Diagrams: 01/12/17 04:12 01/12/17 04:12 Recent Labs: Laboratory Last Values WBC 18.9 Th/cmm (4.8-10.8) H 01/12/17 04:12 RBC 3.95 Mil/cmm (3.80-5.80) 01/12/17 04:12 Hgb 12.8 gm/dL (12-16) 01/12/17 04:12 Hct 37.7 % (41.0-60) L 01/12/17 04:12 MCV 95.5 fl (80-99) 01/12/17 04:12 MCH 32.4 pg (27.0-31.0) H 01/12/17 04:12 MCHC Differential 33.9 pg (28.0-36.0) 01/12/17 04:12 RDW 13.7 % (11.5-20.0) 01/12/17 04:12 Plt Count 102 Th/cmm (150-400) L 01/12/17 04:12 MPV 8.3 fl 01/12/17 04:12 Band Neutrophils % 10 % (0-10) 01/12/17 04:12 Neutrophils (Manual) 86 % (40-80) H 01/12/17 04:12 Lymphocytes 3 % (20-50) L 01/12/17 04:12 Monocytes 1 % (2-10) L 01/12/17 04:12 Eosinophils 1 % (0-5) 01/06/17 10:50 Platelet Estimate SLIGHT DECREASED (NORMAL) 01/12/17 04:12 Platelet Morphology NORMAL (NORMAL) 01/06/17 12:32 Anisocytosis 1+ 01/06/17 12:32 RBC Morph Micro Appear ABNORMAL (NORMAL) 01/06/17 12:32 PT 12.9 SECONDS (9.5-11.5) H 01/06/17 10:50 INR 1.23 (0.5-1.4) 01/06/17 10:50 PTT (Actin FS) 37.0 SECONDS (26.0-38.0) 01/06/17 10:50 Sodium 147 mEq/L (136-145) H 01/12/17 04:12 Potassium 3.2 mEq/L (3.5-5.1) L 01/12/17 04:12 Chloride 117 mEq/L (98-107) H 01/12/17 04:12 Carbon Dioxide 24.1 mEq/L (21.0-31.0) 01/12/17 04:12 Anion Gap 9.1 (7.0-16.0) 01/12/17 04:12 BUN 22 mg/dL (7-25) 01/12/17 04:12 Creatinine 0.6 mg/dL (0.7-1.3) L 01/12/17 04:12 Est GFR ( Amer) TNP 01/12/17 04:12 Est GFR (Non-Af Amer) TNP 01/12/17 04:12 BUN/Creatinine Ratio 36.7 01/12/17 04:12 Glucose 105 mg/dL (70-105) 01/12/17 04:12 POC Glucose 138 MG/DL (70 - 105) H 01/11/17 21:55 Whole Bld Lactic Acid 0.95 mmol/L (0.60-1.99) 01/06/17 10:53 Calcium 8.4 mg/dL (8.6-10.3) L 01/12/17 04:12 Phosphorus 1.2 mg/dL (2.5-5.0) L 01/12/17 04:12 Magnesium 2.4 mg/dL (1.9-2.7) 01/12/17 04:12 Total Bilirubin 0.8 mg/dL (0.3-1.0) 01/12/17 04:12 AST 10 U/L (13-39) L 01/12/17 04:12 ALT 12 U/L (7-52) 01/12/17 04:12 Alkaline Phosphatase 53 U/L (34-104) 01/12/17 04:12 Creatine Kinase 52 U/L (30-223) 01/06/17 10:50 Total Protein 5.5 gm/dL (6.0-8.3) L 01/12/17 04:12 Albumin 2.8 gm/dL (4.2-5.5) L 01/12/17 04:12 Globulin 2.7 gm/dL 01/12/17 04:12 Albumin/Globulin Ratio 1.0 (1.0-1.8) 01/12/17 04:12 Triglycerides 343 mg/dL (<150) H 01/11/17 09:15 Cholesterol 163 mg/dL (<200) 01/11/17 09:15 LDL Cholesterol Direct 82 mg/dL (75-193) 01/11/17 09:15 HDL Cholesterol 46 mg/dL (23-92) 01/11/17 09:15 TSH 0.39 uIU/ml (0.34-5.60) 01/06/17 11:59 PTH Intact 31 pg/mL (15-65) 01/06/17 12:09 Urine Source CATH 01/11/17 16:00 Urine Color YELLOW 01/11/17 16:00 Urine Clarity CLOUDY (CLEAR) 01/11/17 16:00 Urine pH 5.5 (4.6 - 8.0) 01/11/17 16:00 Ur Specific [place] >= 1.030 (1.005-1.030) 01/11/17 16:00 Urine Protein 100 mg/dL (NEGATIVE) H 01/11/17 16:00 Urine Glucose (UA) 100 mg/dL (NEGATIVE) H 01/11/17 16:00 Urine Ketones 15 mg/dL (NEGATIVE) H 01/11/17 16:00 Urine Blood MODERATE (NEGATIVE) H 01/11/17 16:00 Urine Nitrate NEGATIVE (NEGATIVE) 01/11/17 16:00 Urine Bilirubin SMALL (NEGATIVE) H 01/11/17 16:00 Urine Urobilinogen 0.2 E.U./dL (0.2 - 1.0) 01/11/17 16:00 Ur Leukocyte Esterase SMALL (NEGATIVE) H 01/11/17 16:00 Urine RBC 5-10 /hpf (0-5) H 01/11/17 16:00 Urine WBC 50-100 /hpf (0-5) H 01/11/17 16:00 Ur Epithelial Cells FEW /lpf (FEW) 01/11/17 16:00 Amorphous Sediment MODERATE URATES (NONE SEEN) 01/11/17 16:00 Urine Bacteria MODERATE /hpf (NONE SEEN) 01/11/17 16:00 Fine Granular Casts 0-2 /lpf (NONE SEEN) H 01/11/17 16:00 Urine Yeast FEW /hpf (NONE SEEN) H 01/11/17 16:00 - Physical Exam Vitals and I&O: Vital Signs Temp 99.3 F 01/12/17 04:00 Pulse 120 01/12/17 07:25 Resp 18 01/12/17 07:20 BP 93/41 01/12/17 07:00 Pulse Ox 99 01/12/17 07:20 Intake & Output 01/11/17 01/12/17 01/12/17 18:59 06:59 18:59 Intake Total 1507.645 6041 Output Total 890 Balance 2726.226 2022 Weight (lbs) 69.853 kg 69.173 kg Intake: Intake, IV Amount 0697.131 0845 0.9% NS w/20 mEq KCL 1, 196.785 6710 000 ml @ 50 mls/hr IV . Q20H [facility] Rx#:[id number] KCL 20mEq/100mL Premix 20 100 meq In 100 ml @ 50 mls/ hr IV Q2H [facility] Rx#: [id number] cefTRIAXone 1 gm In 50 Sodium Chloride 0.9% 50 ml @ 100 mls/hr IV Q24HR [facility] Rx#:[id number] Oral 0 TPN/PPN 960 Output: Gastric Drainage 150 Urine 500 Other 240 Other: # Voids 3 1 # Bowel Movements 1 0 Active Medications: Current Medications Acetaminophen (Tylenol 650mg Supp) 650 mg RC Q4H PRN PRN Reason: Fever > 101 Stop: 03/10/17 13:04 Last Admin: 01/12/17 03:37 Dose: 650 mg Albuterol/Ipratropium (Duoneb Neb) 3 ml HHN Q4HRT [facility] Stop: 03/11/17 14:59 Last Admin: 01/12/17 07:20 Dose: 3 ml Albuterol/Ipratropium (Duoneb Neb) 3 ml HHN Q2HRT PRN PRN Reason: Wheezing Stop: 03/11/17 13:46 Artificial Tears (Artificial Tears Ophth Soln) 1 drop EACH EYE BID [facility] Stop: 03/08/17 08:59 Last Admin: 01/12/17 09:59 Dose: Not Given Ascorbic Acid (Vitamin C) 500 mg PO DAILY [facility] Stop: 03/08/17 08:59 Last Admin: 01/12/17 10:01 Dose: Not Given Aspirin (Aspirin Chewable) 81 mg PO DAILY [facility] Stop: 03/13/17 08:59 Last Admin: 01/12/17 10:00 Dose: Not Given Atorvastatin Calcium (Lipitor) 20 mg PO DAILY [facility] PRN Reason: Protocol Stop: 03/12/17 16:29 Last Admin: 01/12/17 10:00 Dose: Not Given Atropine Sulfate (Atropine Syringe) 1 mg IVP Q4HR PRN PRN Reason: HR BELOW 40 Stop: 03/09/17 08:32 Last Admin: 01/09/17 01:00 Dose: 1 mg Bisacodyl (Dulcolax 10 Mg Supp) 10 mg RC DAILY PRN PRN Reason: Constipation Stop: 03/07/17 17:05 Calcium/Vitamin D (Oscal W/Vitamin D) 1 tab PO DAILY [facility] Stop: 03/08/17 08:59 Last Admin: 01/12/17 10:00 Dose: Not Given Cyanocobalamin (Vitamin B12) 500 mcg PO DAILY [facility] Stop: 03/08/17 08:59 Last Admin: 01/12/17 10:00 Dose: Not Given Diltiazem HCl (Cardizem) 20 mg IVP Q4HR PRN PRN Reason: FOR HR>130 Stop: 03/13/17 03:53 Last Admin: 01/12/17 04:22 Dose: 20 mg Docusate Sodium (Colace) 100 mg PO DAILY [facility] Stop: 03/08/17 08:59 Last Admin: 01/12/17 10:00 Dose: Not Given Heparin Sodium (Porcine) (Heparin) 5,000 units SUBQ Q12HR [facility] Stop: 03/08/17 20:59 Last Admin: 01/12/17 09:30 Dose: 5,000 units Potassium Chloride/Dextrose/Sod Cl (D5-0.9ns W/40 Meq Kcl) 1,000 mls @ 75 mls/ hr IV .[id number] [facility] Stop: 03/13/17 08:20 Last Admin: 01/12/17 09:00 Dose: 75 mls/hr Piperacillin Sod/Tazobactam (Sod 3.375 gm/ Sodium Chloride) 50 mls @ 100 mls/ hr IV Q6HR [facility] Stop: 03/13/17 08:49 Vancomycin HCl 1.5 gm/ Sodium (Chloride) 500 mls @ 250 mls/hr IV Q24HR@0900 [facility] Stop: 03/13/17 09:59 Last Admin: 01/12/17 09:59 Dose: 250 mls/hr Potassium Phosphate 40 mmole/ (Sodium Chloride) 263.3333 mls @ 42 mls/hr IV ONCE ONE Stop: 01/12/17 16:46 Last Admin: 01/12/17 10:30 Dose: 42 mls/hr Levetiracetam (Keppra Pb) 500 mg in 100 mls @ 400 mls/hr IV Q12HR@0900,2100 [facility] Stop: 03/13/17 10:29 Last Admin: 01/12/17 10:40 Dose: 400 mls/hr Miscellaneous (Vte Chemical Prophylaxis Screen/ Admission) 1 [facility] PRN PRN PRN Reason: PROTOCOL Stop: 03/08/17 11:10 Miscellaneous (Vancomycin Iv Per Pharmacy) 1 [facility] PRN PRN PRN Reason: PROTOCOL Stop: 03/13/17 08:33 Miscellaneous (Zosyn Iv Per Pharmacy) 1 [facility] PRN PRN PRN Reason: PROTOCOL Stop: 03/13/17 08:34 Polyethylene Glycol (Miralax) 17 gm PO DAILY [facility] Stop: 03/11/17 08:59 Last Admin: 01/12/17 10:00 Dose: Not Given Potassium Chloride (Klor-Con) 20 meq PO DAILY [facility] Stop: 03/08/17 08:59 Last Admin: 01/12/17 09:59 Dose: Not Given General: Alert, No acute distress HEENT: Atraumatic, PERRLA, EOMI Neck: Supple Cardiovascular: Regular rate, Normal S1, Normal S2 Lungs: Other (wheezing,) Abdomen: Bowel sounds, Soft, Other (non tender, no guarding, no rebound) Extremities: no Clubbing, no Cyanosis, no Edema Assessment/Plan - Problem List Patient Problems: All Active Problems Constipation (Acute) K59.00 Dementia (Acute) F03.90 Facial twitching (Acute) G51.4 Hypocalcemia (Acute) E83.51 Hypokalemia (Acute) E87.6 Hypomagnesemia (Acute) E83.42 Hypophosphatemia (Acute) E83.39 Sinus bradycardia (Acute) R00.1 Nutritional Asmnt/Malnutr-PDOC - Dietary Evaluation Malnutrition Findings (Please click <Entered> for more info): Nutritional Asmnt/Malnutrition Start: 01/08/17 12: 55 Text: Status: Complete Freq: Document 01/08/17 12:56 GSUN (Rec: 01/08/17 13:16 [email or web address] [id number]) Nutritional Asmnt/Malnutrition Patient General Information Nutritional Screening Consult Diagnosis ALOC, acute MS exacerbation Pertinent Medical Hx/Surgical Hx Dementia, multiple sclerosis, constipation Subjective Information 76 year old male from SNF. RD consult for laura Huntley. Per RN notes, facial twitching on adm, currently NPO with swallow eval pending. Pt was awake during visit, followed RD with eyes, did not provide any information. Mild wasting to chest noted, loose skin to arms. Current Diet Order/ Nutrition Support NPO Pertinent Medications Vitamin C, Oscal W/Vitamin D, Vitamin B12, D5-0.45ns, Dulcolax, Colace Pertinent Labs 01/08: reviewed. Glucose 148H Nutritional Hx/Data Height 1.85 m Height (Calculated Centimeters) 185.4 Current Weight (lbs) 69.49 kg Weight (Calculated Kilograms) 69.5 Weight (Calculated Grams) 12473.4 [place] Body Weight 184 Weight Status Approriate GI Symptoms Usual diet at home [facility]: pureed, large portion lunch and dinner, 4oz house supplement Skin Integrity/Comment: Audi 12. Pressure area r foot and upper back, abrasion l knee and r leg Estimated Nutritional Goals BEE in Kcals: Using Current wt Calories/Kcals/Kg IBW 184lb/83.6kg with consideration skin integrity and BMI Kcals Calculated 2090-2508kcal (25-30kcal/kg) Protein: Using Current wt Protein Calculated 84-109g (1-1.3g/kg) Fluid: ml 2090-2508ml (1ml/kcal) Nutritional Problem 2. Problem Problem Increased prot needs related to Etiology skin integrity aeb Signs/Symptoms: assessment specialist: pressure area to right foot and upper back, abrasion ro left knee and right lower leg 1. 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 Recommend regular diet, diet texture per swallow eval (pending). SNF order pureed. Expected Outcomes/Goals Expected Outcomes/Goals 1. PO intake to meet at least 75% of estimated nutritional needs.
--- NOTE | 2017-01-12 12:41 | GI Progress Note ---
Subjective - Review of Systems Subjective: Transferred to ICU for rapid HR, had large BM in ICU Objective - Results Result Diagrams: 01/12/17 04:12 01/12/17 04:12 Recent Labs: Laboratory Last Values WBC 18.9 Th/cmm (4.8-10.8) H 01/12/17 04:12 RBC 3.95 Mil/cmm (3.80-5.80) 01/12/17 04:12 Hgb 12.8 gm/dL (12-16) 01/12/17 04:12 Hct 37.7 % (41.0-60) L 01/12/17 04:12 MCV 95.5 fl (80-99) 01/12/17 04:12 MCH 32.4 pg (27.0-31.0) H 01/12/17 04:12 MCHC Differential 33.9 pg (28.0-36.0) 01/12/17 04:12 RDW 13.7 % (11.5-20.0) 01/12/17 04:12 Plt Count 102 Th/cmm (150-400) L 01/12/17 04:12 MPV 8.3 fl 01/12/17 04:12 Band Neutrophils % 10 % (0-10) 01/12/17 04:12 Neutrophils (Manual) 86 % (40-80) H 01/12/17 04:12 Lymphocytes 3 % (20-50) L 01/12/17 04:12 Monocytes 1 % (2-10) L 01/12/17 04:12 Eosinophils 1 % (0-5) 01/06/17 10:50 Platelet Estimate SLIGHT DECREASED (NORMAL) 01/12/17 04:12 Platelet Morphology NORMAL (NORMAL) 01/06/17 12:32 Anisocytosis 1+ 01/06/17 12:32 RBC Morph Micro Appear ABNORMAL (NORMAL) 01/06/17 12:32 PT 12.9 SECONDS (9.5-11.5) H 01/06/17 10:50 INR 1.23 (0.5-1.4) 01/06/17 10:50 PTT (Actin FS) 37.0 SECONDS (26.0-38.0) 01/06/17 10:50 Sodium 147 mEq/L (136-145) H 01/12/17 04:12 Potassium 3.2 mEq/L (3.5-5.1) L 01/12/17 04:12 Chloride 117 mEq/L (98-107) H 01/12/17 04:12 Carbon Dioxide 24.1 mEq/L (21.0-31.0) 01/12/17 04:12 Anion Gap 9.1 (7.0-16.0) 01/12/17 04:12 BUN 22 mg/dL (7-25) 01/12/17 04:12 Creatinine 0.6 mg/dL (0.7-1.3) L 01/12/17 04:12 Est GFR ( Amer) TNP 01/12/17 04:12 Est GFR (Non-Af Amer) TNP 01/12/17 04:12 BUN/Creatinine Ratio 36.7 01/12/17 04:12 Glucose 105 mg/dL (70-105) 01/12/17 04:12 POC Glucose 138 MG/DL (70 - 105) H 01/11/17 21:55 Whole Bld Lactic Acid 0.95 mmol/L (0.60-1.99) 01/06/17 10:53 Calcium 8.4 mg/dL (8.6-10.3) L 01/12/17 04:12 Phosphorus 1.2 mg/dL (2.5-5.0) L 01/12/17 04:12 Magnesium 2.4 mg/dL (1.9-2.7) 01/12/17 04:12 Total Bilirubin 0.8 mg/dL (0.3-1.0) 01/12/17 04:12 AST 10 U/L (13-39) L 01/12/17 04:12 ALT 12 U/L (7-52) 01/12/17 04:12 Alkaline Phosphatase 53 U/L (34-104) 01/12/17 04:12 Creatine Kinase 52 U/L (30-223) 01/06/17 10:50 Total Protein 5.5 gm/dL (6.0-8.3) L 01/12/17 04:12 Albumin 2.8 gm/dL (4.2-5.5) L 01/12/17 04:12 Globulin 2.7 gm/dL 01/12/17 04:12 Albumin/Globulin Ratio 1.0 (1.0-1.8) 01/12/17 04:12 Triglycerides 343 mg/dL (<150) H 01/11/17 09:15 Cholesterol 163 mg/dL (<200) 01/11/17 09:15 LDL Cholesterol Direct 82 mg/dL (75-193) 01/11/17 09:15 HDL Cholesterol 46 mg/dL (23-92) 01/11/17 09:15 TSH 0.39 uIU/ml (0.34-5.60) 01/06/17 11:59 PTH Intact 31 pg/mL (15-65) 01/06/17 12:09 Urine Source CATH 01/11/17 16:00 Urine Color YELLOW 01/11/17 16:00 Urine Clarity CLOUDY (CLEAR) 01/11/17 16:00 Urine pH 5.5 (4.6 - 8.0) 01/11/17 16:00 Ur Specific [place] >= 1.030 (1.005-1.030) 01/11/17 16:00 Urine Protein 100 mg/dL (NEGATIVE) H 01/11/17 16:00 Urine Glucose (UA) 100 mg/dL (NEGATIVE) H 01/11/17 16:00 Urine Ketones 15 mg/dL (NEGATIVE) H 01/11/17 16:00 Urine Blood MODERATE (NEGATIVE) H 01/11/17 16:00 Urine Nitrate NEGATIVE (NEGATIVE) 01/11/17 16:00 Urine Bilirubin SMALL (NEGATIVE) H 01/11/17 16:00 Urine Urobilinogen 0.2 E.U./dL (0.2 - 1.0) 01/11/17 16:00 Ur Leukocyte Esterase SMALL (NEGATIVE) H 01/11/17 16:00 Urine RBC 5-10 /hpf (0-5) H 01/11/17 16:00 Urine WBC 50-100 /hpf (0-5) H 01/11/17 16:00 Ur Epithelial Cells FEW /lpf (FEW) 01/11/17 16:00 Amorphous Sediment MODERATE URATES (NONE SEEN) 01/11/17 16:00 Urine Bacteria MODERATE /hpf (NONE SEEN) 01/11/17 16:00 Fine Granular Casts 0-2 /lpf (NONE SEEN) H 01/11/17 16:00 Urine Yeast FEW /hpf (NONE SEEN) H 01/11/17 16:00 - Physical Exam Vitals and I&O: Vital Signs Temp 99.3 F 01/12/17 04:00 Pulse 155 01/12/17 11:30 Resp 18 01/12/17 11:20 BP 93/41 01/12/17 07:00 Pulse Ox 100 01/12/17 11:20 Intake & Output 01/11/17 01/12/17 01/12/17 18:59 06:59 18:59 Intake Total 7895.364 7514 Output Total 890 Balance 8390.380 1302 Weight (lbs) 69.853 kg 69.173 kg Intake: Intake, IV Amount 1694.337 8783 0.9% NS w/20 mEq KCL 1, 066.724 9106 000 ml @ 50 mls/hr IV . Q20H [facility] Rx#:[id number] KCL 20mEq/100mL Premix 20 100 meq In 100 ml @ 50 mls/ hr IV Q2H [facility] Rx#: [id number] cefTRIAXone 1 gm In 50 Sodium Chloride 0.9% 50 ml @ 100 mls/hr IV Q24HR [facility] Rx#:[id number] Oral 0 TPN/PPN 960 Output: Gastric Drainage 150 Urine 500 Other 240 Other: # Voids 3 1 # Bowel Movements 1 0 Active Medications: Current Medications Acetaminophen (Tylenol 650mg Supp) 650 mg RC Q4H PRN PRN Reason: Fever > 101 Stop: 03/10/17 13:04 Last Admin: 01/12/17 03:37 Dose: 650 mg Albuterol/Ipratropium (Duoneb Neb) 3 ml HHN Q4HRT [facility] Stop: 03/11/17 14:59 Last Admin: 01/12/17 11:19 Dose: 3 ml Albuterol/Ipratropium (Duoneb Neb) 3 ml HHN Q2HRT PRN PRN Reason: Wheezing Stop: 03/11/17 13:46 Artificial Tears (Artificial Tears Ophth Soln) 1 drop EACH EYE BID [facility] Stop: 03/08/17 08:59 Last Admin: 01/12/17 09:59 Dose: Not Given Ascorbic Acid (Vitamin C) 500 mg PO DAILY [facility] Stop: 03/08/17 08:59 Last Admin: 01/12/17 10:01 Dose: Not Given Aspirin (Aspirin Chewable) 81 mg PO DAILY [facility] Stop: 03/13/17 08:59 Last Admin: 01/12/17 10:00 Dose: Not Given Atorvastatin Calcium (Lipitor) 20 mg PO DAILY [facility] PRN Reason: Protocol Stop: 03/12/17 16:29 Last Admin: 01/12/17 10:00 Dose: Not Given Atropine Sulfate (Atropine Syringe) 1 mg IVP Q4HR PRN PRN Reason: HR BELOW 40 Stop: 03/09/17 08:32 Last Admin: 01/09/17 01:00 Dose: 1 mg Bisacodyl (Dulcolax 10 Mg Supp) 10 mg RC DAILY PRN PRN Reason: Constipation Stop: 03/07/17 17:05 Calcium/Vitamin D (Oscal W/Vitamin D) 1 tab PO DAILY [facility] Stop: 03/08/17 08:59 Last Admin: 01/12/17 10:00 Dose: Not Given Cyanocobalamin (Vitamin B12) 500 mcg PO DAILY [facility] Stop: 03/08/17 08:59 Last Admin: 01/12/17 10:00 Dose: Not Given Diltiazem HCl (Cardizem) 20 mg IVP Q4HR PRN PRN Reason: FOR HR>130 Stop: 03/13/17 03:53 Last Admin: 01/12/17 11:30 Dose: 20 mg Docusate Sodium (Colace) 100 mg PO DAILY [facility] Stop: 03/08/17 08:59 Last Admin: 01/12/17 10:00 Dose: Not Given Heparin Sodium (Porcine) (Heparin) 5,000 units SUBQ Q12HR [facility] Stop: 03/08/17 20:59 Last Admin: 01/12/17 09:30 Dose: 5,000 units Potassium Chloride/Dextrose/Sod Cl (D5-0.9ns W/40 Meq Kcl) 1,000 mls @ 75 mls/ hr IV .[id number] [facility] Stop: 03/13/17 08:20 Last Admin: 01/12/17 09:00 Dose: 75 mls/hr Piperacillin Sod/Tazobactam (Sod 3.375 gm/ Sodium Chloride) 50 mls @ 100 mls/ hr IV Q6HR [facility] Stop: 03/13/17 08:49 Last Admin: 01/12/17 09:00 Dose: 100 mls/hr Vancomycin HCl 1.5 gm/ Sodium (Chloride) 500 mls @ 250 mls/hr IV Q24HR@0900 [facility] Stop: 03/13/17 09:59 Last Admin: 01/12/17 09:59 Dose: 250 mls/hr Potassium Phosphate 40 mmole/ (Sodium Chloride) 263.3333 mls @ 42 mls/hr IV ONCE ONE Stop: 01/12/17 16:46 Last Admin: 01/12/17 10:30 Dose: 42 mls/hr Levetiracetam (Keppra Pb) 500 mg in 100 mls @ 400 mls/hr IV Q12HR@0900,2100 [facility] Stop: 03/13/17 10:29 Last Admin: 01/12/17 10:40 Dose: 400 mls/hr Methylprednisolone Sodium Succinate (Solu-Medrol) 80 mg IVP Q12HR [facility] Stop: 03/13/17 20:59 Miscellaneous (Vte Chemical Prophylaxis Screen/ Admission) 1 [facility] PRN PRN PRN Reason: PROTOCOL Stop: 03/08/17 11:10 Miscellaneous (Vancomycin Iv Per Pharmacy) 1 [facility] PRN PRN PRN Reason: PROTOCOL Stop: 03/13/17 08:33 Miscellaneous (Zosyn Iv Per Pharmacy) 1 [facility] PRN PRN PRN Reason: PROTOCOL Stop: 03/13/17 08:34 Polyethylene Glycol (Miralax) 17 gm PO DAILY [facility] Stop: 03/11/17 08:59 Last Admin: 01/12/17 10:00 Dose: Not Given Potassium Chloride (Klor-Con) 20 meq PO DAILY [facility] Stop: 03/08/17 08:59 Last Admin: 01/12/17 09:59 Dose: Not Given General: Alert, No acute distress HEENT: Atraumatic, PERRLA, EOMI Neck: Supple Cardiovascular: Regular rate, Normal S1, Normal S2 Lungs: Other (wheezing,) Abdomen: Bowel sounds, Soft, Other (non tender, no guarding, no rebound) Extremities: no Clubbing, no Cyanosis, no Edema Assessment/Plan - Problem List Patient Problems: All Active Problems Constipation (Acute) K59.00 Dementia (Acute) F03.90 Facial twitching (Acute) G51.4 Hypocalcemia (Acute) E83.51 Hypokalemia (Acute) E87.6 Hypomagnesemia (Acute) E83.42 Hypophosphatemia (Acute) E83.39 Sinus bradycardia (Acute) R00.1 - Assessment Assessment: # Fecal impaction Reaccumulated, and Small bowel series showed further impaction on 01/11. This may be exacerbating his Afib and causing proximal dilation. # Dilated CBD on CT MRCP shows non dilated CBD at 3mm, although distal portion not completely visualized. Cannot exlude a distal intraluminal defect, although given that the duct diameter is only 3mm, and there is abnormalities in the pt's LFTs, the probability of choledocholithiasis is small. ERCP in this patient to clarify this issue would pose significant risk, especially given the pts other numerous medical conditions. In the absence of any clinical or laboratory signs of biliary obstruction, the risk of ERCP outweighs any possible diagnostic or therapeutic benefit. This can be revisited if the clinical situation changes. Fever today with leukocytosis. Will add CMP to labs to ensure this is not early biliary obstruction, although doubt this. Plan: - Will give daily enema - Will give slow golytely 4L bowel prep to help clear current impaction - After golytely, continue with aggressive miralax based bowel regimen to prevent recurrence - ERCP is not planned at this point given the above discussion - NPO for now, cont with diet once impaction improves - agree with abx
--- NOTE | 2017-01-12 13:32 | Diagnostic Imaging Report ---
Exam: Chest x-ray HISTORY: NG tube placement. Portable examination of the chest and upper abdomen demonstrates NG tube in the stomach. There is evidence for distention small bowel large bowel loops. Residual contrast material is noted in the colon. IMPRESSION: NG tube in the stomach
[2017-01-12] MEDS: MINERAL OIL ENEMA 135 ML BOTTLE RC PRN (13:41)
[2017-01-12] MEDS ORDERED: Probiotic Screen MC PRN (13:55)
[2017-01-12] MEDS ORDERED: Ketamine 50 mg/mL 10mL Vial ONE (21:26)
[2017-01-12] MEDS ORDERED: Levetiracetam 500mg/100mL 500 MG/100 ML BAG IV ONE (21:31)
[2017-01-13] MEDS: Albuterol/Ipratropium Neb 3 ML AERS HHN SCH ×6 (03:18→22:34)
[2017-01-13 04:51] LABS: HEMATOCRIT 37.8 % (41.0-60); HEMOGLOBIN 12.4 gm/dL (12-16); MEAN CELL VOLUME 96.4 fl (80-99); MEAN CORPUSCULAR HEMOGLOBIN 31.6 pg (27.0-31.0); MEAN CORPUSCULAR HGB CONC 32.8 pg (28.0-36.0); MEAN PLATELET VOLUME 8.3 fl; PLATELET COUNT 118 Th/cmm (150-400); RED BLOOD COUNT 3.92 Mil/cmm (3.80-5.80); WHITE BLOOD COUNT 10.8 Th/cmm (4.8-10.8)
[2017-01-13 05:05] LABS: ALKALINE PHOSPHATASE 52 U/L (34-104); ANION GAP 11.7 (7.0-16.0); BILIRUBIN,TOTAL 0.6 mg/dL (0.3-1.0); BUN - UREA NITROGEN 25 mg/dL (7-25); BUN/CREATININE RATIO 41.7; CALCIUM SERUM 7.9 mg/dL (8.6-10.3); CARBON DIOXIDE 25.4 mEq/L (21.0-31.0); CHLORIDE 122 mEq/L (98-107); CREATININE - SERUM 0.6 mg/dL (0.7-1.3); GLUCOSE 178 mg/dL (70-105); MAGNESIUM 2.4 mg/dL (1.9-2.7); PHOSPHOROUS 2.6 mg/dL (2.5-5.0); POTASSIUM SERUM 3.1 mEq/L (3.5-5.1); SGOT 14 U/L (13-39); SGPT/ALT 17 U/L (7-52); SODIUM SERUM 156 mEq/L (136-145)
[2017-01-13 05:48] LABS: BAND NEUTROPHILE 4 % (0-10); BASOPHIL 0 % (0-3); EOSINOPHIL 0 % (0-5); NEUTROPHILS 91 % (40-80); PLATELET ESTIMATE ADEQUATE (NORMAL); PLATELET MORPHOLOGY NORMAL (NORMAL); TOTAL CELLS COUNTED 100
[2017-01-13] MEDS: D5-0.45NS w/40 mEq KCL 1,000 ML IV SCH (08:30)
--- NOTE | 2017-01-13 08:33 | General Progress Note ---
Subjective - Review of Systems Service Date: 01/13/17 Subjective: Patient better this morning. Afebrile. more awake and alert. Now in NSR. BMx2 today. Objective - Results Result Diagrams: 01/13/17 04:08 01/13/17 04:08 Recent Labs: Laboratory Last Values WBC 10.8 Th/cmm (4.8-10.8) D 01/13/17 04:08 RBC 3.92 Mil/cmm (3.80-5.80) 01/13/17 04:08 Hgb 12.4 gm/dL (12-16) 01/13/17 04:08 Hct 37.8 % (41.0-60) L 01/13/17 04:08 MCV 96.4 fl (80-99) 01/13/17 04:08 MCH 31.6 pg (27.0-31.0) H 01/13/17 04:08 MCHC Differential 32.8 pg (28.0-36.0) 01/13/17 04:08 RDW 14.0 % (11.5-20.0) 01/13/17 04:08 Plt Count 118 Th/cmm (150-400) L 01/13/17 04:08 MPV 8.3 fl 01/13/17 04:08 Band Neutrophils % 4 % (0-10) 01/13/17 04:08 Neutrophils (Manual) 91 % (40-80) H 01/13/17 04:08 Lymphocytes 4 % (20-50) L 01/13/17 04:08 Monocytes 1 % (2-10) L 01/13/17 04:08 Eosinophils 0 % (0-5) 01/13/17 04:08 Basophils 0 % (0-3) 01/13/17 04:08 Platelet Estimate ADEQUATE (NORMAL) 01/13/17 04:08 Platelet Morphology NORMAL (NORMAL) 01/13/17 04:08 Anisocytosis 1+ 01/06/17 12:32 RBC Morph Micro Appear NORMAL (NORMAL) 01/13/17 04:08 PT 12.9 SECONDS (9.5-11.5) H 01/06/17 10:50 INR 1.23 (0.5-1.4) 01/06/17 10:50 PTT (Actin FS) 37.0 SECONDS (26.0-38.0) 01/06/17 10:50 Sodium 156 mEq/L (136-145) H 01/13/17 04:08 Potassium 3.1 mEq/L (3.5-5.1) L 01/13/17 04:08 Chloride 122 mEq/L (98-107) H 01/13/17 04:08 Carbon Dioxide 25.4 mEq/L (21.0-31.0) 01/13/17 04:08 Anion Gap 11.7 (7.0-16.0) 01/13/17 04:08 BUN 25 mg/dL (7-25) 01/13/17 04:08 Creatinine 0.6 mg/dL (0.7-1.3) L 01/13/17 04:08 Est GFR ( Amer) TNP 01/13/17 04:08 Est GFR (Non-Af Amer) TNP 01/13/17 04:08 BUN/Creatinine Ratio 41.7 01/13/17 04:08 Glucose 178 mg/dL (70-105) H 01/13/17 04:08 POC Glucose 138 MG/DL (70 - 105) H 01/11/17 21:55 Whole Bld Lactic Acid 0.95 mmol/L (0.60-1.99) 01/06/17 10:53 Calcium 7.9 mg/dL (8.6-10.3) L 01/13/17 04:08 Phosphorus 2.6 mg/dL (2.5-5.0) 01/13/17 04:08 Magnesium 2.4 mg/dL (1.9-2.7) 01/13/17 04:08 Total Bilirubin 0.6 mg/dL (0.3-1.0) 01/13/17 04:08 AST 14 U/L (13-39) 01/13/17 04:08 ALT 17 U/L (7-52) 01/13/17 04:08 Alkaline Phosphatase 52 U/L (34-104) 01/13/17 04:08 Creatine Kinase 52 U/L (30-223) 01/06/17 10:50 Total Protein 5.6 gm/dL (6.0-8.3) L 01/13/17 04:08 Albumin 2.8 gm/dL (4.2-5.5) L 01/13/17 04:08 Globulin 2.8 gm/dL 01/13/17 04:08 Albumin/Globulin Ratio 1.0 (1.0-1.8) 01/13/17 04:08 Triglycerides 343 mg/dL (<150) H 01/11/17 09:15 Cholesterol 163 mg/dL (<200) 01/11/17 09:15 LDL Cholesterol Direct 82 mg/dL (75-193) 01/11/17 09:15 HDL Cholesterol 46 mg/dL (23-92) 01/11/17 09:15 TSH 0.39 uIU/ml (0.34-5.60) 01/06/17 11:59 PTH Intact 31 pg/mL (15-65) 01/06/17 12:09 Urine Source CATH 01/11/17 16:00 Urine Color YELLOW 01/11/17 16:00 Urine Clarity CLOUDY (CLEAR) 01/11/17 16:00 Urine pH 5.5 (4.6 - 8.0) 01/11/17 16:00 Ur Specific [place] >= 1.030 (1.005-1.030) 01/11/17 16:00 Urine Protein 100 mg/dL (NEGATIVE) H 01/11/17 16:00 Urine Glucose (UA) 100 mg/dL (NEGATIVE) H 01/11/17 16:00 Urine Ketones 15 mg/dL (NEGATIVE) H 01/11/17 16:00 Urine Blood MODERATE (NEGATIVE) H 01/11/17 16:00 Urine Nitrate NEGATIVE (NEGATIVE) 01/11/17 16:00 Urine Bilirubin SMALL (NEGATIVE) H 01/11/17 16:00 Urine Urobilinogen 0.2 E.U./dL (0.2 - 1.0) 01/11/17 16:00 Ur Leukocyte Esterase SMALL (NEGATIVE) H 01/11/17 16:00 Urine RBC 5-10 /hpf (0-5) H 01/11/17 16:00 Urine WBC 50-100 /hpf (0-5) H 01/11/17 16:00 Ur Epithelial Cells FEW /lpf (FEW) 01/11/17 16:00 Amorphous Sediment MODERATE URATES (NONE SEEN) 01/11/17 16:00 Urine Bacteria MODERATE /hpf (NONE SEEN) 01/11/17 16:00 Fine Granular Casts 0-2 /lpf (NONE SEEN) H 01/11/17 16:00 Urine Yeast FEW /hpf (NONE SEEN) H 01/11/17 16:00 - Physical Exam Vitals and I&O: Vital Signs Temp 98.4 F 01/13/17 04:00 Pulse 64 01/13/17 07:16 Resp 21 01/13/17 07:16 BP 117/79 01/13/17 06:00 Pulse Ox 94 01/13/17 07:16 Intake & Output 01/12/17 01/13/17 01/13/17 18:59 06:59 18:59 Intake Total 4700 150 Output Total 400 550 Balance 4300 -400 Weight (lbs) 81.675 kg 69.173 kg Intake: Intake, IV Amount 700 100 Levetiracetam 500mg/100mL 100 500 mg In 100 ml @ 400 mls/hr IV Q12HR@0900,2100 [facility] Rx#:[id number] Piperacillin Sodium/ 100 100 Tazobact 3.375 gm In Sodium Chloride 0.9% 50 ml @ 100 mls/hr IV Q6HR [facility] Rx#:[id number] Vancomycin HCl 1.5 gm In 500 Sodium Chloride 0.9% 500 ml @ 250 mls/hr IV Q24HR@ 0900 [facility] Rx#:[id number] Oral 0 Tube Feeding 50 Other 4000 Output: Urine 400 550 Other: # Bowel Movements 2 1 Active Medications: Current Medications Acetaminophen (Tylenol 650mg Supp) 650 mg RC Q4H PRN PRN Reason: Fever > 101 Stop: 03/10/17 13:04 Last Admin: 01/12/17 03:37 Dose: 650 mg Albuterol/Ipratropium (Duoneb Neb) 3 ml HHN Q4HRT [facility] Stop: 03/11/17 14:59 Last Admin: 01/13/17 07:10 Dose: 3 ml Albuterol/Ipratropium (Duoneb Neb) 3 ml HHN Q2HRT PRN PRN Reason: Wheezing Stop: 03/11/17 13:46 Amiodarone HCl (Cordarone) 100 mg PO Q12HR [facility] Stop: 03/13/17 20:59 Last Admin: 01/12/17 21:49 Dose: 100 mg Artificial Tears (Artificial Tears Ophth Soln) 1 drop EACH EYE BID [facility] Stop: 03/08/17 08:59 Last Admin: 01/12/17 17:38 Dose: 1 drop Ascorbic Acid (Vitamin C) 500 mg PO DAILY [facility] Stop: 03/08/17 08:59 Last Admin: 01/12/17 10:01 Dose: Not Given Aspirin (Aspirin Chewable) 81 mg PO DAILY [facility] Stop: 03/13/17 08:59 Last Admin: 01/12/17 10:00 Dose: Not Given Atorvastatin Calcium (Lipitor) 20 mg PO DAILY [facility] PRN Reason: Protocol Stop: 03/12/17 16:29 Last Admin: 01/12/17 10:00 Dose: Not Given Atropine Sulfate (Atropine Syringe) 1 mg IVP Q4HR PRN PRN Reason: HR BELOW 40 Stop: 03/09/17 08:32 Last Admin: 01/09/17 01:00 Dose: 1 mg Bisacodyl (Dulcolax 10 Mg Supp) 10 mg RC DAILY PRN PRN Reason: Constipation Stop: 03/07/17 17:05 Calcium/Vitamin D (Oscal W/Vitamin D) 1 tab PO DAILY [facility] Stop: 03/08/17 08:59 Last Admin: 01/12/17 10:00 Dose: Not Given Cyanocobalamin (Vitamin B12) 500 mcg PO DAILY [facility] Stop: 03/08/17 08:59 Last Admin: 01/12/17 10:00 Dose: Not Given Diltiazem HCl (Cardizem) 20 mg IVP Q4HR PRN PRN Reason: FOR HR>130 Stop: 03/13/17 03:53 Last Admin: 01/12/17 20:50 Dose: 20 mg Docusate Sodium (Colace) 100 mg PO DAILY [facility] Stop: 03/08/17 08:59 Last Admin: 01/12/17 10:00 Dose: Not Given Heparin Sodium (Porcine) (Heparin) 5,000 units SUBQ Q12HR [facility] Stop: 03/08/17 20:59 Last Admin: 01/12/17 21:22 Dose: 5,000 units Piperacillin Sod/Tazobactam (Sod 3.375 gm/ Sodium Chloride) 50 mls @ 100 mls/ hr IV Q6HR [facility] Stop: 03/13/17 08:49 Last Admin: 01/13/17 05:39 Dose: 100 mls/hr Vancomycin HCl 1.5 gm/ Sodium (Chloride) 500 mls @ 250 mls/hr IV Q24HR@0900 [facility] Stop: 03/13/17 09:59 Last Infusion: 01/12/17 12:00 Dose: Infused Levetiracetam (Keppra Pb) 500 mg in 100 mls @ 400 mls/hr IV Q12HR@0900,2100 [facility] Stop: 03/13/17 10:29 Last Admin: 01/12/17 21:48 Dose: 400 mls/hr Potassium Chloride (Potassium Chloride) 20 meq in 100 mls @ 50 mls/hr IV Q2H [facility] Stop: 01/13/17 12:14 Calcium Gluconate 1 gm/ Sodium (Chloride) 110 mls @ 100 mls/hr IV X1 ONE Stop: 01/13/17 09:25 Methylprednisolone Sodium Succinate (Solu-Medrol) 80 mg IVP Q12HR [facility] Stop: 03/13/17 20:59 Last Admin: 01/12/17 21:49 Dose: 80 mg Mineral Oil (Fleet Mineral Oil) 135 ml RC DAILY PRN PRN Reason: CONSTIPATION Stop: 03/13/17 12:59 Last Admin: 01/12/17 13:41 Dose: 135 ml Miscellaneous (Vte Chemical Prophylaxis Screen/ Admission) 1 ea PRN PRN PRN Reason: PROTOCOL Stop: 03/08/17 11:10 Miscellaneous (Vancomycin Iv Per Pharmacy) 1 [facility] PRN PRN PRN Reason: PROTOCOL Stop: 03/13/17 08:33 Miscellaneous (Zosyn Iv Per Pharmacy) 1 [facility] PRN PRN PRN Reason: PROTOCOL Stop: 03/13/17 08:34 Miscellaneous (Probiotic Screen) 1 [facility] PRN PRN PRN Reason: PROTOCOL Stop: 03/13/17 13:54 Polyethylene Glycol (Miralax) 17 gm PO DAILY LIZY Stop: 03/11/17 08:59 Last Admin: 01/12/17 10:00 Dose: Not Given Potassium Chloride (Klor-Con) 20 meq PO DAILY LIZY Stop: 03/08/17 08:59 Last Admin: 01/12/17 09:59 Dose: Not Given General: Alert, No acute distress HEENT: Atraumatic, PERRLA, EOMI Neck: Supple Cardiovascular: Regular rate, Normal S1, Normal S2 Lungs: Other (wheezing,) Abdomen: Bowel sounds, Soft, Other (non tender, no guarding, no rebound) Extremities: no Clubbing, no Cyanosis, no Edema Assessment/Plan - Problem List Patient Problems: All Active Problems Constipation (Acute) K59.00 Dementia (Acute) F03.90 Facial twitching (Acute) G51.4 Hypocalcemia (Acute) E83.51 Hypokalemia (Acute) E87.6 Hypomagnesemia (Acute) E83.42 Hypophosphatemia (Acute) E83.39 Ileus (Acute) K56.7 Leukocytosis (Acute) D72.829 Multiple sclerosis (Acute) G35 Seizure disorder (Acute) G40.909 Sinus bradycardia (Acute) R00.1 - Assessment Assessment: ALOC ... improved. CT head NAD, CT carotid NAD. hypotensive ... improved. will continue IV fluid support. hypernatremia Na 156+ hypokalemia ... will change fluids to D5 1/2NS @ 75cc/hr. add KCL to fluids. check CMP,Mg,Phos,Ca tomorrow. Electrolyte imbalance ... will continue to monitor daily and correct as needed. CVA per MRI head ... management per Dr. Franklin. Patient on Anticoags. for carotid duplex, results pending. Leukocytosis improved ... WBC's 10K ... DC Rocephin. Will start Vancomycin IV and Zosyn IV per pharmacy MS acute exacerbation ... stable. Patient to continue steroids IV please see neurology consult, CT head neg, constipation ... improved, keep NPO. continue IV fluids. will order KUB for today. cardiac arrhythmia ... continue anti-arrythmics per Cardiology Seizure disorder ... on Keppra - Plan Plan: ALOC ... improved. CT head NAD, CT carotid NAD. hypotensive ... improved. will continue IV fluid support. hypernatremia Na 156+ hypokalemia ... will change fluids to D5 1/2NS @ 75cc/hr. add KCL to fluids. check CMP,Mg,Phos,Ca tomorrow. Electrolyte imbalance ... will continue to monitor daily and correct as needed. CVA per MRI head ... management per Dr. Franklin. patient on Heparin drip. for carotid duplex. Leukocytosis improved ... WBC's 10K ... DC Rocephin. Will start Vancomycin IV and Zosyn IV per pharmacy MS acute exacerbation ... stable. Patient to continue steroids IV please see neurology consult, CT head neg, constipation ... improved, keep NPO. continue IV fluids. cardiac arrhythmia ... continue anti-arrythmics per pharmacy Nutritional Asmnt/Malnutr-PDOC - Dietary Evaluation Malnutrition Findings (Please click <Entered> for more info): Nutritional Asmnt/Malnutrition Start: 01/08/17 12: 55 Text: Status: Complete Freq: Document 01/08/17 12:56 GSUN (Rec: 01/08/17 13:16 GSUN [id number]) Nutritional Asmnt/Malnutrition Patient General Information Nutritional Screening Consult Diagnosis ALOC, acute MS exacerbation Pertinent Medical Hx/Surgical Hx Dementia, multiple sclerosis, constipation Subjective Information 76 year old male from SNF. RD consult for laura Huntley. Per RN notes, facial twitching on adm, currently NPO with swallow eval pending. Pt was awake during visit, followed RD with eyes, did not provide any information. Mild wasting to chest noted, loose skin to arms. Current Diet Order/ Nutrition Support NPO Pertinent Medications Vitamin C, Oscal W/Vitamin D, Vitamin B12, D5-0.45ns, Dulcolax, Colace Pertinent Labs 01/08: reviewed. Glucose 148H Nutritional Hx/Data Height 1.85 m Height (Calculated Centimeters) 185.4 Current Weight (lbs) 69.49 kg Weight (Calculated Kilograms) 69.5 Weight (Calculated Grams) 31846.4 [place] Body Weight 184 Weight Status Approriate GI Symptoms Usual diet at home [facility]: pureed, large portion lunch and dinner, 4oz house supplement Skin Integrity/Comment: Audi 12. Pressure area r foot and upper back, abrasion l knee and r leg Estimated Nutritional Goals BEE in Kcals: Using Current wt Calories/Kcals/Kg IBW 184lb/83.6kg with consideration skin integrity and BMI Kcals Calculated 0-2508kcal (25-30kcal/kg) Protein: Using Current wt Protein Calculated 84-109g (1-1.3g/kg) Fluid: ml 2090-2508ml (1ml/kcal) Nutritional Problem 2. 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 Recommend regular diet, diet texture per swallow eval (pending). SNF order pureed. Expected Outcomes/Goals Expected Outcomes/Goals 1. PO intake to meet at least 75% of estimated nutritional needs.
--- NOTE | 2017-01-13 08:34 | Diagnostic Imaging Report ---
Bilateral carotid Doppler ultrasound exam HISTORY: Stroke, CVA Sonographic sector images were obtained through the carotid bifurcation regions bilaterally. Associated Doppler data was obtained. The exam of the right side demonstrates generalized intimal thickening throughout bifurcation region. Small to moderate focus of atherosclerotic plaque is seen in the carotid bulb region resulting in less than 30% narrowing. Antegrade vertebral artery flow. Velocities and flow ratios are normal (ICC/CCA equals 0.75). The exam of the left side demonstrates generalized intimal thickening. A small focus of metastatic plaque is seen of the carotid bulb region resulting in less then 20% narrowing. Increased velocity noted in the left external carotid artery region. Remaining velocities and flow ratios are normal (ICC/CCA equals 0.71). Antegrade vertebral artery flow. IMPRESSION: 1. Mild bilateral atherosclerotic changes that do not appear to be hemodynamically significant.
[2017-01-13] MEDS ORDERED: Calcium Gluconate 1 GM in Sodium Chloride 0.9% 100 ML IV ONE (09:00)
[2017-01-13] MEDS: Potassium Chloride 20 mEq ER Tab PO SCH (09:25)
--- NOTE | 2017-01-13 09:47 | Diagnostic Imaging Report ---
KUB abdominal film (portable) HISTORY: Constipation, pain The exam demonstrates multiple loops of dilated large and small bowel along with a large amount of stool in a distended rectum. Findings consistent with changes of a fecal impaction. No free intraperitoneal air appreciated. IMPRESSION: 1. Multiple loops of dilated air-filled large and small bowel along with a large amount of stool in the distended rectum consistent with a fecal impaction.
[2017-01-13] MEDS: Calcium Carb/Vit D 500 mg/200 U Tab PO SCH (09:50)
[2017-01-13] MEDS: Aspirin 81mg Chewable Tab PO SCH (09:50)
[2017-01-13] MEDS: Multivitamin w/ Minerals Tab PO SCH (09:50)
[2017-01-13] MEDS: Atorvastatin Calcium 10 MG TAB PO SCH (09:50)
[2017-01-13] MEDS: Polyvinyl Alcohol Ophth Soln 15 mL Bottle EACH EYE SCH ×2 (09:53→17:09)
[2017-01-13] MEDS: Vancomycin HCl 1.5 GM in Sodium Chloride 0.9% 500 ML IV SCH (09:53)
[2017-01-13] MEDS: KCL 20mEq/100mL Premix 20 MEQ/100 ML PIGGYBACK IV SCH ×2 (09:56→12:00)
[2017-01-13] MEDS: POLYETHYLENE GLYCOL 3350 17 GM PACK PO SCH ×2 (09:57→16:43)
[2017-01-13] MEDS: Levetiracetam 500mg/100mL 500 MG/100 ML BAG IV SCH ×2 (10:00→20:43)
--- NOTE | 2017-01-13 10:17 | GI Progress Note ---
Subjective - Review of Systems Subjective: Pt with several BMs after golytely prep last night. Still altered. HR better controlled Objective - Results Result Diagrams: 01/13/17 04:08 01/13/17 04:08 Recent Labs: Laboratory Last Values WBC 10.8 Th/cmm (4.8-10.8) D 01/13/17 04:08 RBC 3.92 Mil/cmm (3.80-5.80) 01/13/17 04:08 Hgb 12.4 gm/dL (12-16) 01/13/17 04:08 Hct 37.8 % (41.0-60) L 01/13/17 04:08 MCV 96.4 fl (80-99) 01/13/17 04:08 MCH 31.6 pg (27.0-31.0) H 01/13/17 04:08 MCHC Differential 32.8 pg (28.0-36.0) 01/13/17 04:08 RDW 14.0 % (11.5-20.0) 01/13/17 04:08 Plt Count 118 Th/cmm (150-400) L 01/13/17 04:08 MPV 8.3 fl 01/13/17 04:08 Band Neutrophils % 4 % (0-10) 01/13/17 04:08 Neutrophils (Manual) 91 % (40-80) H 01/13/17 04:08 Lymphocytes 4 % (20-50) L 01/13/17 04:08 Monocytes 1 % (2-10) L 01/13/17 04:08 Eosinophils 0 % (0-5) 01/13/17 04:08 Basophils 0 % (0-3) 01/13/17 04:08 Platelet Estimate ADEQUATE (NORMAL) 01/13/17 04:08 Platelet Morphology NORMAL (NORMAL) 01/13/17 04:08 Anisocytosis 1+ 01/06/17 12:32 RBC Morph Micro Appear NORMAL (NORMAL) 01/13/17 04:08 PT 12.9 SECONDS (9.5-11.5) H 01/06/17 10:50 INR 1.23 (0.5-1.4) 01/06/17 10:50 PTT (Actin FS) 37.0 SECONDS (26.0-38.0) 01/06/17 10:50 Sodium 156 mEq/L (136-145) H 01/13/17 04:08 Potassium 3.1 mEq/L (3.5-5.1) L 01/13/17 04:08 Chloride 122 mEq/L (98-107) H 01/13/17 04:08 Carbon Dioxide 25.4 mEq/L (21.0-31.0) 01/13/17 04:08 Anion Gap 11.7 (7.0-16.0) 01/13/17 04:08 BUN 25 mg/dL (7-25) 01/13/17 04:08 Creatinine 0.6 mg/dL (0.7-1.3) L 01/13/17 04:08 Est GFR ( Amer) TNP 01/13/17 04:08 Est GFR (Non-Af Amer) TNP 01/13/17 04:08 BUN/Creatinine Ratio 41.7 01/13/17 04:08 Glucose 178 mg/dL (70-105) H 01/13/17 04:08 POC Glucose 138 MG/DL (70 - 105) H 01/11/17 21:55 Whole Bld Lactic Acid 0.95 mmol/L (0.60-1.99) 01/06/17 10:53 Calcium 7.9 mg/dL (8.6-10.3) L 01/13/17 04:08 Phosphorus 2.6 mg/dL (2.5-5.0) 01/13/17 04:08 Magnesium 2.4 mg/dL (1.9-2.7) 01/13/17 04:08 Total Bilirubin 0.6 mg/dL (0.3-1.0) 01/13/17 04:08 AST 14 U/L (13-39) 01/13/17 04:08 ALT 17 U/L (7-52) 01/13/17 04:08 Alkaline Phosphatase 52 U/L (34-104) 01/13/17 04:08 Creatine Kinase 52 U/L (30-223) 01/06/17 10:50 Total Protein 5.6 gm/dL (6.0-8.3) L 01/13/17 04:08 Albumin 2.8 gm/dL (4.2-5.5) L 01/13/17 04:08 Globulin 2.8 gm/dL 01/13/17 04:08 Albumin/Globulin Ratio 1.0 (1.0-1.8) 01/13/17 04:08 Triglycerides 343 mg/dL (<150) H 01/11/17 09:15 Cholesterol 163 mg/dL (<200) 01/11/17 09:15 LDL Cholesterol Direct 82 mg/dL (75-193) 01/11/17 09:15 HDL Cholesterol 46 mg/dL (23-92) 01/11/17 09:15 TSH 0.39 uIU/ml (0.34-5.60) 01/06/17 11:59 PTH Intact 31 pg/mL (15-65) 01/06/17 12:09 Urine Source CATH 01/11/17 16:00 Urine Color YELLOW 01/11/17 16:00 Urine Clarity CLOUDY (CLEAR) 01/11/17 16:00 Urine pH 5.5 (4.6 - 8.0) 01/11/17 16:00 Ur Specific Jonancy >= 1.030 (1.005-1.030) 01/11/17 16:00 Urine Protein 100 mg/dL (NEGATIVE) H 01/11/17 16:00 Urine Glucose (UA) 100 mg/dL (NEGATIVE) H 01/11/17 16:00 Urine Ketones 15 mg/dL (NEGATIVE) H 01/11/17 16:00 Urine Blood MODERATE (NEGATIVE) H 01/11/17 16:00 Urine Nitrate NEGATIVE (NEGATIVE) 01/11/17 16:00 Urine Bilirubin SMALL (NEGATIVE) H 01/11/17 16:00 Urine Urobilinogen 0.2 E.U./dL (0.2 - 1.0) 01/11/17 16:00 Ur Leukocyte Esterase SMALL (NEGATIVE) H 01/11/17 16:00 Urine RBC 5-10 /hpf (0-5) H 01/11/17 16:00 Urine WBC 50-100 /hpf (0-5) H 01/11/17 16:00 Ur Epithelial Cells FEW /lpf (FEW) 01/11/17 16:00 Amorphous Sediment MODERATE URATES (NONE SEEN) 01/11/17 16:00 Urine Bacteria MODERATE /hpf (NONE SEEN) 01/11/17 16:00 Fine Granular Casts 0-2 /lpf (NONE SEEN) H 01/11/17 16:00 Urine Yeast FEW /hpf (NONE SEEN) H 01/11/17 16:00 - Physical Exam Vitals and I&O: Vital Signs Temp 98.4 F 01/13/17 04:00 Pulse 57 01/13/17 09:54 Resp 21 01/13/17 07:16 BP 117/79 01/13/17 06:00 Pulse Ox 94 01/13/17 07:16 Intake & Output 01/12/17 01/13/17 01/13/17 18:59 06:59 18:59 Intake Total 4700 150 100 Output Total 400 550 Balance 4300 -400 100 Weight (lbs) 81.675 kg 69.173 kg Intake: Intake, IV Amount 700 100 100 Levetiracetam 500mg/100mL 100 100 500 mg In 100 ml @ 400 mls/hr IV Q12HR@0900,2100 [facility] Rx#:[id number] Piperacillin Sodium/ 100 100 Tazobact 3.375 gm In Sodium Chloride 0.9% 50 ml @ 100 mls/hr IV Q6HR [facility] Rx#:[id number] Vancomycin HCl 1.5 gm In 500 Sodium Chloride 0.9% 500 ml @ 250 mls/hr IV Q24HR@ 0900 [facility] Rx#:[id number] Oral 0 Tube Feeding 50 Other 4000 Output: Urine 400 550 Other: # Bowel Movements 2 1 Active Medications: Current Medications Acetaminophen (Tylenol 650mg Supp) 650 mg RC Q4H PRN PRN Reason: Fever > 101 Stop: 03/10/17 13:04 Last Admin: 01/12/17 03:37 Dose: 650 mg Albuterol/Ipratropium (Duoneb Neb) 3 ml HHN Q4HRT [facility] Stop: 03/11/17 14:59 Last Admin: 01/13/17 07:10 Dose: 3 ml Albuterol/Ipratropium (Duoneb Neb) 3 ml HHN Q2HRT PRN PRN Reason: Wheezing Stop: 03/11/17 13:46 Amiodarone HCl (Cordarone) 100 mg PO Q12HR [facility] Stop: 03/13/17 20:59 Last Admin: 01/13/17 09:54 Dose: Not Given Artificial Tears (Artificial Tears Ophth Soln) 1 drop EACH EYE BID [facility] Stop: 03/08/17 08:59 Last Admin: 01/13/17 09:53 Dose: 1 drop Ascorbic Acid (Vitamin C) 500 mg PO DAILY [facility] Stop: 03/08/17 08:59 Last Admin: 01/13/17 09:50 Dose: 500 mg Aspirin (Aspirin Chewable) 81 mg PO DAILY [facility] Stop: 03/13/17 08:59 Last Admin: 01/13/17 09:50 Dose: 81 mg Atorvastatin Calcium (Lipitor) 20 mg PO DAILY [facility] PRN Reason: Protocol Stop: 03/12/17 16:29 Last Admin: 01/13/17 09:50 Dose: 20 mg Atropine Sulfate (Atropine Syringe) 1 mg IVP Q4HR PRN PRN Reason: HR BELOW 40 Stop: 03/09/17 08:32 Last Admin: 01/09/17 01:00 Dose: 1 mg Bisacodyl (Dulcolax 10 Mg Supp) 10 mg RC HS [facility] Stop: 03/14/17 20:59 Calcium/Vitamin D (Oscal W/Vitamin D) 1 tab PO DAILY [facility] Stop: 03/08/17 08:59 Last Admin: 01/13/17 09:50 Dose: 1 tab Cyanocobalamin (Vitamin B12) 500 mcg PO DAILY [facility] Stop: 03/08/17 08:59 Last Admin: 01/13/17 09:50 Dose: 500 mcg Diltiazem HCl (Cardizem) 20 mg IVP Q4HR PRN PRN Reason: FOR HR>130 Stop: 03/13/17 03:53 Last Admin: 01/12/17 20:50 Dose: 20 mg Docusate Sodium (Colace) 100 mg PO DAILY [facility] Stop: 03/08/17 08:59 Last Admin: 01/13/17 09:50 Dose: 100 mg Heparin Sodium (Porcine) (Heparin) 5,000 units SUBQ Q12HR [facility] Stop: 03/08/17 20:59 Last Admin: 01/13/17 09:51 Dose: 5,000 units Piperacillin Sod/Tazobactam (Sod 3.375 gm/ Sodium Chloride) 50 mls @ 100 mls/ hr IV Q6HR [facility] Stop: 03/13/17 08:49 Last Admin: 01/13/17 05:39 Dose: 100 mls/hr Vancomycin HCl 1.5 gm/ Sodium (Chloride) 500 mls @ 250 mls/hr IV Q24HR@0900 [facility] Stop: 03/13/17 09:59 Last Admin: 01/13/17 09:53 Dose: 250 mls/hr Levetiracetam (Keppra Pb) 500 mg in 100 mls @ 400 mls/hr IV Q12HR@0900,2100 [facility] Stop: 03/13/17 10:29 Last Admin: 01/13/17 10:00 Dose: 400 mls/hr Potassium Chloride (Potassium Chloride) 20 meq in 100 mls @ 50 mls/hr IV Q2H [facility] Stop: 01/13/17 12:14 Last Admin: 01/13/17 09:56 Dose: 50 mls/hr Potassium Chloride/Dextrose/Sod Cl (D5-0.45ns W/40 Meq Kcl) 1,000 mls @ 75 mls/ hr IV .[id number] [facility] Stop: 03/14/17 08:29 Last Admin: 01/13/17 08:30 Dose: 75 mls/hr Methylprednisolone Sodium Succinate (Solu-Medrol) 80 mg IVP Q12HR [facility] Stop: 03/13/17 20:59 Last Admin: 01/13/17 09:49 Dose: 80 mg Mineral Oil (Fleet Mineral Oil) 135 ml RC DAILY PRN PRN Reason: CONSTIPATION Stop: 03/13/17 12:59 Last Admin: 01/12/17 13:41 Dose: 135 ml Miscellaneous (Vte Chemical Prophylaxis Screen/ Admission) 1 ea PRN PRN PRN Reason: PROTOCOL Stop: 03/08/17 11:10 Miscellaneous (Vancomycin Iv Per Pharmacy) 1 ea PRN PRN PRN Reason: PROTOCOL Stop: 03/13/17 08:33 Miscellaneous (Zosyn Iv Per Pharmacy) 1 ea PRN PRN PRN Reason: PROTOCOL Stop: 03/13/17 08:34 Miscellaneous (Probiotic Screen) 1 ea PRN PRN PRN Reason: PROTOCOL Stop: 03/13/17 13:54 Polyethylene Glycol (Miralax) 17 gm PO BID [facility] Stop: 03/14/17 16:59 Potassium Chloride (Klor-Con) 20 meq PO DAILY [facility] Stop: 03/08/17 08:59 Last Admin: 01/13/17 09:25 Dose: 20 meq General: Alert, No acute distress HEENT: Atraumatic, PERRLA, EOMI Neck: Supple Cardiovascular: Regular rate, Normal S1, Normal S2 Lungs: Other (wheezing,) Abdomen: Bowel sounds, Soft, Other (non tender, no guarding, no rebound) Extremities: no Clubbing, no Cyanosis, no Edema Assessment/Plan - Problem List Patient Problems: All Active Problems Constipation (Acute) K59.00 Dementia (Acute) F03.90 Facial twitching (Acute) G51.4 Hypocalcemia (Acute) E83.51 Hypokalemia (Acute) E87.6 Hypomagnesemia (Acute) E83.42 Hypophosphatemia (Acute) E83.39 Sinus bradycardia (Acute) R00.1 - Assessment Assessment: # Fecal impaction Reaccumulated, and Small bowel series showed further impaction on 01/11. Further bowel prep on 01/12 with more stool evacuation. # Dilated CBD on CT MRCP shows non dilated CBD at 3mm, although distal portion not completely visualized. Cannot exlude a distal intraluminal defect, although given that the duct diameter is only 3mm, and there is abnormalities in the pt's LFTs, the probability of choledocholithiasis is small. ERCP in this patient to clarify this issue would pose significant risk, especially given the pts other numerous medical conditions. In the absence of any clinical or laboratory signs of biliary obstruction, the risk of ERCP outweighs any possible diagnostic or therapeutic benefit. This can be revisited if the clinical situation changes. # Hypernatremia Plan: - Plan to prevent further impaction: bid miralax, daily dulcolax spp, bid colace , enema prn. If this fails, may need an agent such as amitiza or linzess if available. - Sodium correction as per primary MD - ERCP is not planned at this point given the above discussion - NPO for now, cont with diet once impaction improves - agree with abx - NG feeds for now, if pt fails to regain sufficient MS to eat on his own, he will need PEG tube likely next week. Continue to monitor.
--- NOTE | 2017-01-13 11:11 | Consultation ---
DATE OF CONSULTATION: 01/12/2017 REFERRING PHYSICIAN: Antoni Tucker D.O. REASON FOR CONSULTATION: Leukocytosis. HISTORY OF PRESENT ILLNESS: The patient is a 76-year-old male with a past medical history of dementia, multiple sclerosis, admitted to [facility] on intermittent facial twitching and chewing. On initial evaluation, the patient's temperature was 101.3 degrees Fahrenheit and WBC count was 7400. As the patient had altered mental status, the patient had MRI of the head and CT of the head thus studies were performed. MRI of the brain suggested acute infarct. However, the patient has intermittently fevers. Acute cholecystitis was ruled out. CT scan of the abdomen and pelvis showed fecal impaction. CT scan of the abdomen and pelvis and MRI of the abdomen and pelvis revealed severe stool impaction. There is suspicion of cholelithiasis as well as the patient had abnormality. The distal part of the common bile duct. CT scan of the chest did not show any evidence of the pneumonia. However, the patient had increase in WBC count on 01/11/2017. Zosyn was started. The patient also showed low-grade temperature. As the patient had developed SVT with heart rate in 160s and 170s. The patient was transferred to the ICU for further care. Antibiotic barlow, the patient is receiving vancomycin and Zosyn. PAST MEDICAL HISTORY: As mentioned above, dementia, multiple sclerosis, and constipation. ALLERGIES: NKDA. MEDICATIONS: See medication reconciliation sheet. Antibiotic barlow, he has been receiving vancomycin and Zosyn. SOCIAL HISTORY: No smoking, no alcohol, no drug use. REVIEW OF SYSTEMS: The patient is a poor historian. The patient had fever, constipation. No cough, no shortness of breath. CARDIOVASCULAR: No chest pain or palpitation. PHYSICAL EXAMINATION: VITAL SIGNS: Shows temperature is 98.5 degrees Fahrenheit, and T-max is 100 degrees Fahrenheit, pulse is 148, respirations 20, blood pressure 92/65. GENERAL: The patient is comfortable, cachectic, not in any acute distress. HEENT: Head is normocephalic, atraumatic. Oral cavity moist, pink tongue. Eyes: pallor present, no icterus. pupil PERRLA. NECK: Supple, no JVD, no carotid bruit. Trachea in midline. CHEST: Bilateral breath sounds. No crackles or wheezing. HEART: S1, S2 within normal limit. Regular rhythm. No murmur, no gallop. ABDOMEN: Soft, distended. Bowel sounds present. EXTREMITIES: No cyanosis, no clubbing, no edema. Pulses are palpable. CENTRAL NERVOUS SYSTEM: Alert and awake. LABORATORY DATA: Current lab shows WBC count is 18,900, hemoglobin 12.8, hematocrit 37.7, platelets of 102,000, neutrophils 86%. Sodium 147, potassium 3.2, chloride 117, bicarbonate is 24, BUN is 22, creatinine 0.6, glucose is 105. Urinalysis shows wbc's 50-100, moderate blood, leukoesterase small. Blood cultures 2 sets are negative. Urine culture is pending. MRSA screen is negative. As I mentioned above, radiological study as mentioned above and reviewed. IMPRESSION: 1. Leukocytosis and low-grade fever, sepsis. 2. Urinary tract infection. 3. Possible common bile duct obstruction distal end, cholelithiasis. 4. Supraventricular tachycardia. 5. Fecal impaction. 6. Multiple sclerosis. 7. Dementia. RECOMMENDATIONS: Continue vancomycin and Zosyn. Re-evaluate tomorrow and go from there. JOB# [id number] SU
--- NOTE | 2017-01-13 15:14 | General Progress Note ---
Subjective - Review of Systems Service Date: 01/13/17 Events since last encounter: KUB today still fecal impaction had BMs Objective - Results Result Diagrams: 01/13/17 04:08 01/13/17 04:08 Recent Labs: Laboratory Last Values WBC 10.8 Th/cmm (4.8-10.8) D 01/13/17 04:08 RBC 3.92 Mil/cmm (3.80-5.80) 01/13/17 04:08 Hgb 12.4 gm/dL (12-16) 01/13/17 04:08 Hct 37.8 % (41.0-60) L 01/13/17 04:08 MCV 96.4 fl (80-99) 01/13/17 04:08 MCH 31.6 pg (27.0-31.0) H 01/13/17 04:08 MCHC Differential 32.8 pg (28.0-36.0) 01/13/17 04:08 RDW 14.0 % (11.5-20.0) 01/13/17 04:08 Plt Count 118 Th/cmm (150-400) L 01/13/17 04:08 MPV 8.3 fl 01/13/17 04:08 Band Neutrophils % 4 % (0-10) 01/13/17 04:08 Neutrophils (Manual) 91 % (40-80) H 01/13/17 04:08 Lymphocytes 4 % (20-50) L 01/13/17 04:08 Monocytes 1 % (2-10) L 01/13/17 04:08 Eosinophils 0 % (0-5) 01/13/17 04:08 Basophils 0 % (0-3) 01/13/17 04:08 Platelet Estimate ADEQUATE (NORMAL) 01/13/17 04:08 Platelet Morphology NORMAL (NORMAL) 01/13/17 04:08 Anisocytosis 1+ 01/06/17 12:32 RBC Morph Micro Appear NORMAL (NORMAL) 01/13/17 04:08 PT 12.9 SECONDS (9.5-11.5) H 01/06/17 10:50 INR 1.23 (0.5-1.4) 01/06/17 10:50 PTT (Actin FS) 37.0 SECONDS (26.0-38.0) 01/06/17 10:50 Sodium 156 mEq/L (136-145) H 01/13/17 04:08 Potassium 3.1 mEq/L (3.5-5.1) L 01/13/17 04:08 Chloride 122 mEq/L (98-107) H 01/13/17 04:08 Carbon Dioxide 25.4 mEq/L (21.0-31.0) 01/13/17 04:08 Anion Gap 11.7 (7.0-16.0) 01/13/17 04:08 BUN 25 mg/dL (7-25) 01/13/17 04:08 Creatinine 0.6 mg/dL (0.7-1.3) L 01/13/17 04:08 Est GFR ( Amer) TNP 01/13/17 04:08 Est GFR (Non-Af Amer) TNP 01/13/17 04:08 BUN/Creatinine Ratio 41.7 01/13/17 04:08 Glucose 178 mg/dL (70-105) H 01/13/17 04:08 POC Glucose 138 MG/DL (70 - 105) H 01/11/17 21:55 Whole Bld Lactic Acid 0.95 mmol/L (0.60-1.99) 01/06/17 10:53 Calcium 7.9 mg/dL (8.6-10.3) L 01/13/17 04:08 Phosphorus 2.6 mg/dL (2.5-5.0) 01/13/17 04:08 Magnesium 2.4 mg/dL (1.9-2.7) 01/13/17 04:08 Total Bilirubin 0.6 mg/dL (0.3-1.0) 01/13/17 04:08 AST 14 U/L (13-39) 01/13/17 04:08 ALT 17 U/L (7-52) 01/13/17 04:08 Alkaline Phosphatase 52 U/L (34-104) 01/13/17 04:08 Creatine Kinase 52 U/L (30-223) 01/06/17 10:50 Total Protein 5.6 gm/dL (6.0-8.3) L 01/13/17 04:08 Albumin 2.8 gm/dL (4.2-5.5) L 01/13/17 04:08 Globulin 2.8 gm/dL 01/13/17 04:08 Albumin/Globulin Ratio 1.0 (1.0-1.8) 01/13/17 04:08 Triglycerides 343 mg/dL (<150) H 01/11/17 09:15 Cholesterol 163 mg/dL (<200) 01/11/17 09:15 LDL Cholesterol Direct 82 mg/dL (75-193) 01/11/17 09:15 HDL Cholesterol 46 mg/dL (23-92) 01/11/17 09:15 TSH 0.39 uIU/ml (0.34-5.60) 01/06/17 11:59 PTH Intact 31 pg/mL (15-65) 01/06/17 12:09 Urine Source CATH 01/11/17 16:00 Urine Color YELLOW 01/11/17 16:00 Urine Clarity CLOUDY (CLEAR) 01/11/17 16:00 Urine pH 5.5 (4.6 - 8.0) 01/11/17 16:00 Ur Specific [place] >= 1.030 (1.005-1.030) 01/11/17 16:00 Urine Protein 100 mg/dL (NEGATIVE) H 01/11/17 16:00 Urine Glucose (UA) 100 mg/dL (NEGATIVE) H 01/11/17 16:00 Urine Ketones 15 mg/dL (NEGATIVE) H 01/11/17 16:00 Urine Blood MODERATE (NEGATIVE) H 01/11/17 16:00 Urine Nitrate NEGATIVE (NEGATIVE) 01/11/17 16:00 Urine Bilirubin SMALL (NEGATIVE) H 01/11/17 16:00 Urine Urobilinogen 0.2 E.U./dL (0.2 - 1.0) 01/11/17 16:00 Ur Leukocyte Esterase SMALL (NEGATIVE) H 01/11/17 16:00 Urine RBC 5-10 /hpf (0-5) H 01/11/17 16:00 Urine WBC 50-100 /hpf (0-5) H 01/11/17 16:00 Ur Epithelial Cells FEW /lpf (FEW) 01/11/17 16:00 Amorphous Sediment MODERATE URATES (NONE SEEN) 01/11/17 16:00 Urine Bacteria MODERATE /hpf (NONE SEEN) 01/11/17 16:00 Fine Granular Casts 0-2 /lpf (NONE SEEN) H 01/11/17 16:00 Urine Yeast FEW /hpf (NONE SEEN) H 01/11/17 16:00 - Physical Exam Vitals and I&O: Vital Signs Temp 97.9 F 01/13/17 13:00 Pulse 66 01/13/17 13:00 Resp 22 01/13/17 13:00 BP 121/67 01/13/17 13:00 Pulse Ox 98 01/13/17 13:00 Intake & Output 01/12/17 01/13/17 01/13/17 18:59 06:59 18:59 Intake Total 4700 200 800 Output Total 400 550 Balance 4300 -350 800 Weight (lbs) 81.675 kg 69.173 kg Intake: Intake, IV Amount 700 150 800 KCL 20mEq/100mL Premix 20 100 meq In 100 ml @ 50 mls/ hr IV Q2H [facility] Rx#: [id number] Levetiracetam 500mg/100mL 100 200 500 mg In 100 ml @ 400 mls/hr IV Q12HR@0900,2100 [facility] Rx#:[id number] Piperacillin Sodium/ 100 150 Tazobact 3.375 gm In Sodium Chloride 0.9% 50 ml @ 100 mls/hr IV Q6HR [facility] Rx#:[id number] Vancomycin HCl 1.5 gm In 500 500 Sodium Chloride 0.9% 500 ml @ 250 mls/hr IV Q24HR@ 0900 [facility] Rx#:[id number] Oral 0 Tube Feeding 50 Other 4000 Output: Urine 400 550 Other: # Bowel Movements 2 1 Stool Characteristics Liquid Liquid Brown Brown Active Medications: Current Medications Acetaminophen (Tylenol 650mg Supp) 650 mg RC Q4H PRN PRN Reason: Fever > 101 Stop: 03/10/17 13:04 Last Admin: 01/12/17 03:37 Dose: 650 mg Albuterol/Ipratropium (Duoneb Neb) 3 ml HHN Q4HRT [facility] Stop: 03/11/17 14:59 Last Admin: 01/13/17 11:10 Dose: 3 ml Albuterol/Ipratropium (Duoneb Neb) 3 ml HHN Q2HRT PRN PRN Reason: Wheezing Stop: 03/11/17 13:46 Amiodarone HCl (Cordarone) 100 mg PO Q12HR [facility] Stop: 03/13/17 20:59 Last Admin: 01/13/17 09:54 Dose: Not Given Artificial Tears (Artificial Tears Ophth Soln) 1 drop EACH EYE BID [facility] Stop: 03/08/17 08:59 Last Admin: 01/13/17 09:53 Dose: 1 drop Ascorbic Acid (Vitamin C) 500 mg PO DAILY [facility] Stop: 03/08/17 08:59 Last Admin: 01/13/17 09:50 Dose: 500 mg Aspirin (Aspirin Chewable) 81 mg PO DAILY [facility] Stop: 03/13/17 08:59 Last Admin: 01/13/17 09:50 Dose: 81 mg Atorvastatin Calcium (Lipitor) 20 mg PO DAILY [facility] PRN Reason: Protocol Stop: 03/12/17 16:29 Last Admin: 01/13/17 09:50 Dose: 20 mg Atropine Sulfate (Atropine Syringe) 1 mg IVP Q4HR PRN PRN Reason: HR BELOW 40 Stop: 03/09/17 08:32 Last Admin: 01/09/17 01:00 Dose: 1 mg Bisacodyl (Dulcolax 10 Mg Supp) 10 mg RC HS [facility] Stop: 03/14/17 20:59 Calcium/Vitamin D (Oscal W/Vitamin D) 1 tab PO DAILY [facility] Stop: 03/08/17 08:59 Last Admin: 01/13/17 09:50 Dose: 1 tab Cyanocobalamin (Vitamin B12) 500 mcg PO DAILY [facility] Stop: 03/08/17 08:59 Last Admin: 01/13/17 09:50 Dose: 500 mcg Diltiazem HCl (Cardizem) 20 mg IVP Q4HR PRN PRN Reason: FOR HR>130 Stop: 03/13/17 03:53 Last Admin: 01/12/17 20:50 Dose: 20 mg Docusate Sodium (Colace) 100 mg PO DAILY [facility] Stop: 03/08/17 08:59 Last Admin: 01/13/17 09:50 Dose: 100 mg Heparin Sodium (Porcine) (Heparin) 5,000 units SUBQ Q12HR [facility] Stop: 03/08/17 20:59 Last Admin: 01/13/17 09:51 Dose: 5,000 units Piperacillin Sod/Tazobactam (Sod 3.375 gm/ Sodium Chloride) 50 mls @ 100 mls/ hr IV Q6HR [facility] Stop: 03/13/17 08:49 Last Admin: 01/13/17 12:42 Dose: 100 mls/hr Vancomycin HCl 1.5 gm/ Sodium (Chloride) 500 mls @ 250 mls/hr IV Q24HR@0900 [facility] Stop: 03/13/17 09:59 Last Infusion: 01/13/17 11:55 Dose: Infused Levetiracetam (Keppra Pb) 500 mg in 100 mls @ 400 mls/hr IV Q12HR@0900,2100 [facility] Stop: 03/13/17 10:29 Last Infusion: 01/13/17 10:15 Dose: Infused Potassium Chloride/Dextrose/Sod Cl (D5-0.45ns W/40 Meq Kcl) 1,000 mls @ 75 mls/ hr IV .[id number] [facility] Stop: 03/14/17 08:29 Last Admin: 01/13/17 08:30 Dose: 75 mls/hr Methylprednisolone Sodium Succinate (Solu-Medrol) 80 mg IVP Q12HR [facility] Stop: 03/13/17 20:59 Last Admin: 01/13/17 09:49 Dose: 80 mg Mineral Oil (Fleet Mineral Oil) 135 ml RC DAILY PRN PRN Reason: CONSTIPATION Stop: 03/13/17 12:59 Last Admin: 01/12/17 13:41 Dose: 135 ml Miscellaneous (Vte Chemical Prophylaxis Screen/ Admission) 1 ea PRN PRN PRN Reason: PROTOCOL Stop: 03/08/17 11:10 Miscellaneous (Vancomycin Iv Per Pharmacy) 1 ea PRN PRN PRN Reason: PROTOCOL Stop: 03/13/17 08:33 Miscellaneous (Zosyn Iv Per Pharmacy) 1 ea PRN PRN PRN Reason: PROTOCOL Stop: 03/13/17 08:34 Miscellaneous (Probiotic Screen) 1 ea PRN PRN PRN Reason: PROTOCOL Stop: 03/13/17 13:54 Polyethylene Glycol (Miralax) 17 gm PO BID [facility] Stop: 03/14/17 16:59 Potassium Chloride (Klor-Con) 20 meq PO DAILY [facility] Stop: 03/08/17 08:59 Last Admin: 01/13/17 09:25 Dose: 20 meq General: Alert, No acute distress HEENT: Atraumatic, PERRLA, EOMI Neck: Supple Cardiovascular: Regular rate, Normal S1, Normal S2 Lungs: Other (wheezing,) Abdomen: Bowel sounds, Soft, Other (non tender, no guarding, no rebound) Extremities: no Clubbing, no Cyanosis, no Edema Assessment/Plan - Problem List Patient Problems: All Active Problems Constipation (Acute) K59.00 Dementia (Acute) F03.90 Facial twitching (Acute) G51.4 Hypocalcemia (Acute) E83.51 Hypokalemia (Acute) E87.6 Hypomagnesemia (Acute) E83.42 Hypophosphatemia (Acute) E83.39 Sinus bradycardia (Acute) R00.1 Nutritional Asmnt/Malnutr-PDOC - Dietary Evaluation Malnutrition Findings (Please click <Entered> for more info): Nutritional Asmnt/Malnutrition Start: 01/08/17 12: 55 Text: Status: Complete Freq: Document 01/08/17 12:56 GSUN (Rec: 01/08/17 13:16 [email or web address] [email or web address]) Nutritional Asmnt/Malnutrition Patient General Information Nutritional Screening Consult Diagnosis ALOC, acute MS exacerbation Pertinent Medical Hx/Surgical Hx Dementia, multiple sclerosis, constipation Subjective Information 76 year old male from SNF. RD consult for laura Huntley. Per RN notes, facial twitching on adm, currently NPO with swallow eval pending. Pt was awake during visit, followed RD with eyes, did not provide any information. Mild wasting to chest noted, loose skin to arms. Current Diet Order/ Nutrition Support NPO Pertinent Medications Vitamin C, Oscal W/Vitamin D, Vitamin B12, D5-0.45ns, Dulcolax, Colace Pertinent Labs 01/08: reviewed. Glucose 148H Nutritional Hx/Data Height 1.85 m Height (Calculated Centimeters) 185.4 Current Weight (lbs) 69.49 kg Weight (Calculated Kilograms) 69.5 Weight (Calculated Grams) 14310.4 [place] Body Weight 184 Weight Status Approriate GI Symptoms Usual diet at home [place] [facility]: pureed, large portion lunch and dinner, 4oz house supplement Skin Integrity/Comment: Audi 12. Pressure area r foot and upper back, abrasion l knee and r leg Estimated Nutritional Goals BEE in Kcals: Using Current wt Calories/Kcals/Kg IBW 184lb/83.6kg with consideration skin integrity and BMI Kcals Calculated 2090-2508kcal (25-30kcal/kg) Protein: Using Current wt Protein Calculated 84-109g (1-1.3g/kg) Fluid: ml 2090-2508ml (1ml/kcal) Nutritional Problem 2. 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 Recommend regular diet, diet texture per swallow eval (pending). SNF order pureed. Expected Outcomes/Goals Expected Outcomes/Goals 1. PO intake to meet at least 75% of estimated nutritional needs.
--- NOTE | 2017-01-13 17:43 | Infectious Disease Prog Note ---
Infectious Disease Subjective - Review of Systems Service Date: 01/13/17 Subjective: There is no new change, there is no fever. Infectious Disease Objective - Results Result Diagrams: 01/13/17 04:08 01/14/17 08:05 Recent Labs: Laboratory Last Values WBC 10.8 Th/cmm (4.8-10.8) D 01/13/17 04:08 RBC 3.92 Mil/cmm (3.80-5.80) 01/13/17 04:08 Hgb 12.4 gm/dL (12-16) 01/13/17 04:08 Hct 37.8 % (41.0-60) L 01/13/17 04:08 MCV 96.4 fl (80-99) 01/13/17 04:08 MCH 31.6 pg (27.0-31.0) H 01/13/17 04:08 MCHC Differential 32.8 pg (28.0-36.0) 01/13/17 04:08 RDW 14.0 % (11.5-20.0) 01/13/17 04:08 Plt Count 118 Th/cmm (150-400) L 01/13/17 04:08 MPV 8.3 fl 01/13/17 04:08 Band Neutrophils % 4 % (0-10) 01/13/17 04:08 Neutrophils (Manual) 91 % (40-80) H 01/13/17 04:08 Lymphocytes 4 % (20-50) L 01/13/17 04:08 Monocytes 1 % (2-10) L 01/13/17 04:08 Eosinophils 0 % (0-5) 01/13/17 04:08 Basophils 0 % (0-3) 01/13/17 04:08 Platelet Estimate ADEQUATE (NORMAL) 01/13/17 04:08 Platelet Morphology NORMAL (NORMAL) 01/13/17 04:08 Anisocytosis 1+ 01/06/17 12:32 RBC Morph Micro Appear NORMAL (NORMAL) 01/13/17 04:08 PT 12.9 SECONDS (9.5-11.5) H 01/06/17 10:50 INR 1.23 (0.5-1.4) 01/06/17 10:50 PTT (Actin FS) 37.0 SECONDS (26.0-38.0) 01/06/17 10:50 Sodium 156 mEq/L (136-145) H 01/13/17 04:08 Potassium 3.1 mEq/L (3.5-5.1) L 01/13/17 04:08 Chloride 122 mEq/L (98-107) H 01/13/17 04:08 Carbon Dioxide 25.4 mEq/L (21.0-31.0) 01/13/17 04:08 Anion Gap 11.7 (7.0-16.0) 01/13/17 04:08 BUN 25 mg/dL (7-25) 01/13/17 04:08 Creatinine 0.6 mg/dL (0.7-1.3) L 01/13/17 04:08 Est GFR ( Amer) TNP 01/13/17 04:08 Est GFR (Non-Af Amer) TNP 01/13/17 04:08 BUN/Creatinine Ratio 41.7 01/13/17 04:08 Glucose 178 mg/dL (70-105) H 01/13/17 04:08 POC Glucose 138 MG/DL (70 - 105) H 01/11/17 21:55 Whole Bld Lactic Acid 0.95 mmol/L (0.60-1.99) 01/06/17 10:53 Calcium 7.9 mg/dL (8.6-10.3) L 01/13/17 04:08 Phosphorus 2.6 mg/dL (2.5-5.0) 01/13/17 04:08 Magnesium 2.4 mg/dL (1.9-2.7) 01/13/17 04:08 Total Bilirubin 0.6 mg/dL (0.3-1.0) 01/13/17 04:08 AST 14 U/L (13-39) 01/13/17 04:08 ALT 17 U/L (7-52) 01/13/17 04:08 Alkaline Phosphatase 52 U/L (34-104) 01/13/17 04:08 Creatine Kinase 52 U/L (30-223) 01/06/17 10:50 Total Protein 5.6 gm/dL (6.0-8.3) L 01/13/17 04:08 Albumin 2.8 gm/dL (4.2-5.5) L 01/13/17 04:08 Globulin 2.8 gm/dL 01/13/17 04:08 Albumin/Globulin Ratio 1.0 (1.0-1.8) 01/13/17 04:08 Triglycerides 343 mg/dL (<150) H 01/11/17 09:15 Cholesterol 163 mg/dL (<200) 01/11/17 09:15 LDL Cholesterol Direct 82 mg/dL (75-193) 01/11/17 09:15 HDL Cholesterol 46 mg/dL (23-92) 01/11/17 09:15 TSH 0.39 uIU/ml (0.34-5.60) 01/06/17 11:59 PTH Intact 31 pg/mL (15-65) 01/06/17 12:09 Urine Source CATH 01/11/17 16:00 Urine Color YELLOW 01/11/17 16:00 Urine Clarity CLOUDY (CLEAR) 01/11/17 16:00 Urine pH 5.5 (4.6 - 8.0) 01/11/17 16:00 Ur Specific [place] >= 1.030 (1.005-1.030) 01/11/17 16:00 Urine Protein 100 mg/dL (NEGATIVE) H 01/11/17 16:00 Urine Glucose (UA) 100 mg/dL (NEGATIVE) H 01/11/17 16:00 Urine Ketones 15 mg/dL (NEGATIVE) H 01/11/17 16:00 Urine Blood MODERATE (NEGATIVE) H 01/11/17 16:00 Urine Nitrate NEGATIVE (NEGATIVE) 01/11/17 16:00 Urine Bilirubin SMALL (NEGATIVE) H 01/11/17 16:00 Urine Urobilinogen 0.2 E.U./dL (0.2 - 1.0) 01/11/17 16:00 Ur Leukocyte Esterase SMALL (NEGATIVE) H 01/11/17 16:00 Urine RBC 5-10 /hpf (0-5) H 01/11/17 16:00 Urine WBC 50-100 /hpf (0-5) H 01/11/17 16:00 Ur Epithelial Cells FEW /lpf (FEW) 01/11/17 16:00 Amorphous Sediment MODERATE URATES (NONE SEEN) 01/11/17 16:00 Urine Bacteria MODERATE /hpf (NONE SEEN) 01/11/17 16:00 Fine Granular Casts 0-2 /lpf (NONE SEEN) H 01/11/17 16:00 Urine Yeast FEW /hpf (NONE SEEN) H 01/11/17 16:00 - Physical Exam Vitals and I&O: Vital Signs Temp 98.1 F 01/13/17 17:00 Pulse 79 01/13/17 17:00 Resp 17 01/13/17 17:00 BP 122/78 01/13/17 17:00 Pulse Ox 97 01/13/17 17:00 Intake & Output 01/12/17 01/13/17 01/13/17 18:59 06:59 18:59 Intake Total 4700 200 1490 Output Total 400 550 410 Balance 4300 -350 1080 Weight (lbs) 81.675 kg 69.173 kg 72.688 kg Intake: Intake, IV Amount 700 150 850 KCL 20mEq/100mL Premix 20 100 meq In 100 ml @ 50 mls/ hr IV Q2H [facility] Rx#: [id number] Levetiracetam 500mg/100mL 100 200 500 mg In 100 ml @ 400 mls/hr IV Q12HR@0900,2100 [facility] Rx#:[id number] Piperacillin Sodium/ 100 150 50 Tazobact 3.375 gm In Sodium Chloride 0.9% 50 ml @ 100 mls/hr IV Q6HR [facility] Rx#:[id number] Vancomycin HCl 1.5 gm In 500 500 Sodium Chloride 0.9% 500 ml @ 250 mls/hr IV Q24HR@ 0900 [facility] Rx#:[id number] Oral 0 Tube Feeding 50 140 Other 4000 500 Output: Urine 400 550 410 Other: # Bowel Movements 2 1 1 Stool Characteristics Liquid Liquid [place] Active Medications: Current Medications Acetaminophen (Tylenol 650mg Supp) 650 mg RC Q4H PRN PRN Reason: Fever > 101 Stop: 03/10/17 13:04 Last Admin: 01/12/17 03:37 Dose: 650 mg Albuterol/Ipratropium (Duoneb Neb) 3 ml HHN Q4HRT [facility] Stop: 03/11/17 14:59 Last Admin: 01/13/17 15:10 Dose: 3 ml Albuterol/Ipratropium (Duoneb Neb) 3 ml HHN Q2HRT PRN PRN Reason: Wheezing Stop: 03/11/17 13:46 Artificial Tears (Artificial Tears Ophth Soln) 1 drop EACH EYE BID [facility] Stop: 03/08/17 08:59 Last Admin: 01/13/17 17:09 Dose: 1 drop Ascorbic Acid (Vitamin C) 500 mg PO DAILY [facility] Stop: 03/08/17 08:59 Last Admin: 01/13/17 09:50 Dose: 500 mg Aspirin (Aspirin Chewable) 81 mg PO DAILY [facility] Stop: 03/13/17 08:59 Last Admin: 01/13/17 09:50 Dose: 81 mg Atorvastatin Calcium (Lipitor) 20 mg PO DAILY [facility] PRN Reason: Protocol Stop: 03/12/17 16:29 Last Admin: 01/13/17 09:50 Dose: 20 mg Atropine Sulfate (Atropine Syringe) 1 mg IVP Q4HR PRN PRN Reason: HR BELOW 40 Stop: 03/09/17 08:32 Last Admin: 01/09/17 01:00 Dose: 1 mg Bisacodyl (Dulcolax 10 Mg Supp) 10 mg RC HS [facility] Stop: 03/14/17 20:59 Calcium/Vitamin D (Oscal W/Vitamin D) 1 tab PO DAILY [facility] Stop: 03/08/17 08:59 Last Admin: 01/13/17 09:50 Dose: 1 tab Cyanocobalamin (Vitamin B12) 500 mcg PO DAILY [facility] Stop: 03/08/17 08:59 Last Admin: 01/13/17 09:50 Dose: 500 mcg Diltiazem HCl (Cardizem) 20 mg IVP Q4HR PRN PRN Reason: FOR HR>130 Stop: 03/13/17 03:53 Last Admin: 01/12/17 20:50 Dose: 20 mg Docusate Sodium (Colace) 100 mg PO DAILY [facility] Stop: 03/08/17 08:59 Last Admin: 01/13/17 09:50 Dose: 100 mg Heparin Sodium (Porcine) (Heparin) 5,000 units SUBQ Q12HR [facility] Stop: 03/08/17 20:59 Last Admin: 01/13/17 09:51 Dose: 5,000 units Piperacillin Sod/Tazobactam (Sod 3.375 gm/ Sodium Chloride) 50 mls @ 100 mls/ hr IV Q6HR [facility] Stop: 03/13/17 08:49 Last Admin: 01/13/17 17:09 Dose: 100 mls/hr Vancomycin HCl 1.5 gm/ Sodium (Chloride) 500 mls @ 250 mls/hr IV Q24HR@0900 [facility] Stop: 03/13/17 09:59 Last Infusion: 01/13/17 11:55 Dose: Infused Levetiracetam (Keppra Pb) 500 mg in 100 mls @ 400 mls/hr IV Q12HR@0900,2100 [facility] Stop: 03/13/17 10:29 Last Infusion: 01/13/17 10:15 Dose: Infused Potassium Chloride/Dextrose/Sod Cl (D5-0.45ns W/40 Meq Kcl) 1,000 mls @ 75 mls/ hr IV .[id number] [facility] Stop: 03/14/17 08:29 Last Admin: 01/13/17 08:30 Dose: 75 mls/hr Methylprednisolone Sodium Succinate (Solu-Medrol) 80 mg IVP Q12HR [facility] Stop: 03/13/17 20:59 Last Admin: 01/13/17 09:49 Dose: 80 mg Mineral Oil (Fleet Mineral Oil) 135 ml RC DAILY PRN PRN Reason: CONSTIPATION Stop: 03/13/17 12:59 Last Admin: 01/12/17 13:41 Dose: 135 ml Miscellaneous (Vte Chemical Prophylaxis Screen/ Admission) 1 ea PRN PRN PRN Reason: PROTOCOL Stop: 03/08/17 11:10 Miscellaneous (Vancomycin Iv Per Pharmacy) 1 [facility] PRN PRN PRN Reason: PROTOCOL Stop: 03/13/17 08:33 Miscellaneous (Zosyn Iv Per Pharmacy) 1 [facility] PRN PRN PRN Reason: PROTOCOL Stop: 03/13/17 08:34 Miscellaneous (Probiotic Screen) 1 [facility] PRN PRN PRN Reason: PROTOCOL Stop: 03/13/17 13:54 Polyethylene Glycol (Miralax) 17 gm PO BID [facility] Stop: 03/14/17 16:59 Last Admin: 01/13/17 16:43 Dose: 17 gm Potassium Chloride (Klor-Con) 20 meq PO DAILY [facility] Stop: 03/08/17 08:59 Last Admin: 01/13/17 09:25 Dose: 20 meq General: no acute distress, well developed, well nourished HEENT: atraumatic, normocephalic, PERRLA Neck: supple, no thyromegaly Cardiovascular: S1S2, regular Lungs: clear to auscultation bilaterally, clear to percussion Abdomen: soft, no tender, no distended Extremities: no cyanosis, no clubbing, no edema Neurological: awake, alert Skin: intact Infectious Disease Assmt/Plan - Problem List Patient Problems: All Active Problems Constipation (Acute) K59.00 Dementia (Acute) F03.90 Facial twitching (Acute) G51.4 Hypocalcemia (Acute) E83.51 Hypokalemia (Acute) E87.6 Hypomagnesemia (Acute) E83.42 Hypophosphatemia (Acute) E83.39 Ileus (Acute) K56.7 Leukocytosis (Acute) D72.829 Multiple sclerosis (Acute) G35 Seizure disorder (Acute) G40.909 Sinus bradycardia (Acute) R00.1 - Assessment Assessment: 1. Leukocytosis and low-grade fever, sepsis. 2. Fecal impaction. 3. Possible common bile duct obstruction distal end, cholelithiasis. 4. Supraventricular tachycardia. 5. Dementia. 6. Multiple sclerosis. 7. Urinary tract infection. - Plan Plan: Continue vancomycin and Zosyn. Nutritional Asmnt/Malnutr-PDOC - Dietary Evaluation Malnutrition Findings (Please click <Entered> for more info): Nutritional Asmnt/Malnutrition Start: 01/08/17 12: 55 Text: Status: Complete Freq: Document 01/08/17 12:56 GSUN (Rec: 01/08/17 13:16 [id number]) Nutritional Asmnt/Malnutrition Patient General Information Nutritional Screening Consult Diagnosis ALOC, acute MS exacerbation Pertinent Medical Hx/Surgical Hx Dementia, multiple sclerosis, constipation Subjective Information 76 year old male from SNF. RD consult for laura Huntley. Per RN notes, facial twitching on adm, currently NPO with swallow eval pending. Pt was awake during visit, followed RD with eyes, did not provide any information. Mild wasting to chest noted, loose skin to arms. Current Diet Order/ Nutrition Support NPO Pertinent Medications Vitamin C, Oscal W/Vitamin D, Vitamin B12, D5-0.45ns, Dulcolax, Colace Pertinent Labs 01/08: reviewed. Glucose 148H Nutritional Hx/Data Height 1.85 m Height (Calculated Centimeters) 185.4 Current Weight (lbs) 69.49 kg Weight (Calculated Kilograms) 69.5 Weight (Calculated Grams) 77065.4 [place] Body Weight 184 Weight Status Approriate GI Symptoms Usual diet at home [facility]: pureed, large portion lunch and dinner, 4oz house supplement Skin Integrity/Comment: Audi 12. Pressure area r foot and upper back, abrasion l knee and r leg Estimated Nutritional Goals BEE in Kcals: Using Current wt Calories/Kcals/Kg IBW 184lb/83.6kg with consideration skin integrity and BMI Kcals Calculated 0-2508kcal (25-30kcal/kg) Protein: Using Current wt Protein Calculated 84-109g (1-1.3g/kg) Fluid: ml 2090-2508ml (1ml/kcal) Nutritional Problem 2. Problem Problem Increased prot needs related to Etiology skin integrity aeb Signs/Symptoms: cell tuber hand: pressure area to right foot and upper back, abrasion ro left knee and right lower leg 1. 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 Recommend regular diet, diet texture per swallow eval (pending). SNF order pureed. Expected Outcomes/Goals Expected Outcomes/Goals 1. PO intake to meet at least 75% of estimated nutritional needs.
[2017-01-14] MEDS: Albuterol/Ipratropium Neb 3 ML AERS HHN SCH ×6 (02:36→22:07)
[2017-01-14] MEDS: D5-0.45NS w/40 mEq KCL 1,000 ML IV SCH (03:40)
[2017-01-14] MEDS: Levetiracetam 500mg/100mL 500 MG/100 ML BAG IV SCH ×2 (08:30→20:33)
[2017-01-14 08:42] LABS: ALKALINE PHOSPHATASE 48 U/L (34-104); ANION GAP 7.8 (7.0-16.0); BILIRUBIN,TOTAL 0.5 mg/dL (0.3-1.0); BUN - UREA NITROGEN 32 mg/dL (7-25); BUN/CREATININE RATIO 45.7; CALCIUM SERUM 8.4 mg/dL (8.6-10.3); CHLORIDE 123 mEq/L (98-107); CREATININE - SERUM 0.7 mg/dL (0.7-1.3); GLUCOSE 234 mg/dL (70-105); PHOSPHOROUS 1.8 mg/dL (2.5-5.0); POTASSIUM SERUM 3.8 mEq/L (3.5-5.1); SGOT 13 U/L (13-39); SGPT/ALT 18 U/L (7-52); SODIUM SERUM 156 mEq/L (136-145)
--- NOTE | 2017-01-14 08:46 | General Progress Note ---
Subjective - Review of Systems Service Date: 01/14/17 Subjective: Patient better this morning. Afebrile. more awake and alert. Now in NSR. BMx2 today. KUB still shows fecal impaction. Awaiting labwork this AM Objective - Results Result Diagrams: 01/13/17 04:08 01/14/17 08:05 Recent Labs: Laboratory Last Values WBC 10.8 Th/cmm (4.8-10.8) D 01/13/17 04:08 RBC 3.92 Mil/cmm (3.80-5.80) 01/13/17 04:08 Hgb 12.4 gm/dL (12-16) 01/13/17 04:08 Hct 37.8 % (41.0-60) L 01/13/17 04:08 MCV 96.4 fl (80-99) 01/13/17 04:08 MCH 31.6 pg (27.0-31.0) H 01/13/17 04:08 MCHC Differential 32.8 pg (28.0-36.0) 01/13/17 04:08 RDW 14.0 % (11.5-20.0) 01/13/17 04:08 Plt Count 118 Th/cmm (150-400) L 01/13/17 04:08 MPV 8.3 fl 01/13/17 04:08 Band Neutrophils % 4 % (0-10) 01/13/17 04:08 Neutrophils (Manual) 91 % (40-80) H 01/13/17 04:08 Lymphocytes 4 % (20-50) L 01/13/17 04:08 Monocytes 1 % (2-10) L 01/13/17 04:08 Eosinophils 0 % (0-5) 01/13/17 04:08 Basophils 0 % (0-3) 01/13/17 04:08 Platelet Estimate ADEQUATE (NORMAL) 01/13/17 04:08 Platelet Morphology NORMAL (NORMAL) 01/13/17 04:08 Anisocytosis 1+ 01/06/17 12:32 RBC Morph Micro Appear NORMAL (NORMAL) 01/13/17 04:08 PT 12.9 SECONDS (9.5-11.5) H 01/06/17 10:50 INR 1.23 (0.5-1.4) 01/06/17 10:50 PTT (Actin FS) 37.0 SECONDS (26.0-38.0) 01/06/17 10:50 Sodium 156 mEq/L (136-145) H 01/13/17 04:08 Potassium 3.1 mEq/L (3.5-5.1) L 01/13/17 04:08 Chloride 122 mEq/L (98-107) H 01/13/17 04:08 Carbon Dioxide 25.4 mEq/L (21.0-31.0) 01/13/17 04:08 Anion Gap 11.7 (7.0-16.0) 01/13/17 04:08 BUN 25 mg/dL (7-25) 01/13/17 04:08 Creatinine 0.6 mg/dL (0.7-1.3) L 01/13/17 04:08 Est GFR ( Amer) TNP 01/13/17 04:08 Est GFR (Non-Af Amer) TNP 01/13/17 04:08 BUN/Creatinine Ratio 41.7 01/13/17 04:08 Glucose 178 mg/dL (70-105) H 01/13/17 04:08 POC Glucose 138 MG/DL (70 - 105) H 01/11/17 21:55 Whole Bld Lactic Acid 0.95 mmol/L (0.60-1.99) 01/06/17 10:53 Calcium 7.9 mg/dL (8.6-10.3) L 01/13/17 04:08 Phosphorus 2.6 mg/dL (2.5-5.0) 01/13/17 04:08 Magnesium 2.4 mg/dL (1.9-2.7) 01/13/17 04:08 Total Bilirubin 0.6 mg/dL (0.3-1.0) 01/13/17 04:08 AST 14 U/L (13-39) 01/13/17 04:08 ALT 17 U/L (7-52) 01/13/17 04:08 Alkaline Phosphatase 52 U/L (34-104) 01/13/17 04:08 Creatine Kinase 52 U/L (30-223) 01/06/17 10:50 Total Protein 5.6 gm/dL (6.0-8.3) L 01/13/17 04:08 Albumin 2.8 gm/dL (4.2-5.5) L 01/13/17 04:08 Globulin 2.8 gm/dL 01/13/17 04:08 Albumin/Globulin Ratio 1.0 (1.0-1.8) 01/13/17 04:08 Triglycerides 343 mg/dL (<150) H 01/11/17 09:15 Cholesterol 163 mg/dL (<200) 01/11/17 09:15 LDL Cholesterol Direct 82 mg/dL (75-193) 01/11/17 09:15 HDL Cholesterol 46 mg/dL (23-92) 01/11/17 09:15 TSH 0.39 uIU/ml (0.34-5.60) 01/06/17 11:59 PTH Intact 31 pg/mL (15-65) 01/06/17 12:09 Urine Source CATH 01/11/17 16:00 Urine Color YELLOW 01/11/17 16:00 Urine Clarity CLOUDY (CLEAR) 01/11/17 16:00 Urine pH 5.5 (4.6 - 8.0) 01/11/17 16:00 Ur Specific [place] >= 1.030 (1.005-1.030) 01/11/17 16:00 Urine Protein 100 mg/dL (NEGATIVE) H 01/11/17 16:00 Urine Glucose (UA) 100 mg/dL (NEGATIVE) H 01/11/17 16:00 Urine Ketones 15 mg/dL (NEGATIVE) H 01/11/17 16:00 Urine Blood MODERATE (NEGATIVE) H 01/11/17 16:00 Urine Nitrate NEGATIVE (NEGATIVE) 01/11/17 16:00 Urine Bilirubin SMALL (NEGATIVE) H 01/11/17 16:00 Urine Urobilinogen 0.2 E.U./dL (0.2 - 1.0) 01/11/17 16:00 Ur Leukocyte Esterase SMALL (NEGATIVE) H 01/11/17 16:00 Urine RBC 5-10 /hpf (0-5) H 01/11/17 16:00 Urine WBC 50-100 /hpf (0-5) H 01/11/17 16:00 Ur Epithelial Cells FEW /lpf (FEW) 01/11/17 16:00 Amorphous Sediment MODERATE URATES (NONE SEEN) 01/11/17 16:00 Urine Bacteria MODERATE /hpf (NONE SEEN) 01/11/17 16:00 Fine Granular Casts 0-2 /lpf (NONE SEEN) H 01/11/17 16:00 Urine Yeast FEW /hpf (NONE SEEN) H 01/11/17 16:00 - Physical Exam Vitals and I&O: Vital Signs Temp 98.2 F 01/14/17 07:00 Pulse 86 01/14/17 07:00 Resp 21 01/14/17 07:00 BP 137/67 01/14/17 07:00 Pulse Ox 96 01/14/17 07:00 Intake & Output 01/13/17 01/14/17 01/14/17 18:59 06:59 18:59 Intake Total 1540 1470 Output Total 410 425 Balance 1130 1045 Weight (lbs) 72.688 kg 78.834 kg Intake: Intake, IV Amount 900 1050 D5-0.45NS w/40 mEq KCL 1, 1000 000 ml @ 75 mls/hr IV . [id number] [facility] Rx#:[id number] KCL 20mEq/100mL Premix 20 100 meq In 100 ml @ 50 mls/ hr IV Q2H [facility] Rx#: [id number] Levetiracetam 500mg/100mL 200 500 mg In 100 ml @ 400 mls/hr IV Q12HR@0900,2100 [facility] Rx#:[id number] Piperacillin Sodium/ 100 50 Tazobact 3.375 gm In Sodium Chloride 0.9% 50 ml @ 100 mls/hr IV Q6HR [facility] Rx#:[id number] Vancomycin HCl 1.5 gm In 500 Sodium Chloride 0.9% 500 ml @ 250 mls/hr IV Q24HR@ 0900 [facility] Rx#:[id number] Oral 0 Tube Feeding 140 420 Other 500 Output: Urine 410 425 Other: # Bowel Movements 1 1 Stool Characteristics Liquid Liquid Brown Brown Active Medications: Current Medications Acetaminophen (Tylenol 650mg Supp) 650 mg RC Q4H PRN PRN Reason: Fever > 101 Stop: 03/10/17 13:04 Last Admin: 01/12/17 03:37 Dose: 650 mg Albuterol/Ipratropium (Duoneb Neb) 3 ml HHN Q4HRT [facility] Stop: 03/11/17 14:59 Last Admin: 01/14/17 06:51 Dose: 3 ml Albuterol/Ipratropium (Duoneb Neb) 3 ml HHN Q2HRT PRN PRN Reason: Wheezing Stop: 03/11/17 13:46 Artificial Tears (Artificial Tears Ophth Soln) 1 drop EACH EYE BID [facility] Stop: 03/08/17 08:59 Last Admin: 01/13/17 17:09 Dose: 1 drop Ascorbic Acid (Vitamin C) 500 mg PO DAILY [facility] Stop: 03/08/17 08:59 Last Admin: 01/13/17 09:50 Dose: 500 mg Aspirin (Aspirin Chewable) 81 mg PO DAILY [facility] Stop: 03/13/17 08:59 Last Admin: 01/13/17 09:50 Dose: 81 mg Atorvastatin Calcium (Lipitor) 20 mg PO DAILY [facility] PRN Reason: Protocol Stop: 03/12/17 16:29 Last Admin: 01/13/17 09:50 Dose: 20 mg Atropine Sulfate (Atropine Syringe) 1 mg IVP Q4HR PRN PRN Reason: HR BELOW 40 Stop: 03/09/17 08:32 Last Admin: 01/09/17 01:00 Dose: 1 mg Bisacodyl (Dulcolax 10 Mg Supp) 10 mg RC HS [facility] Stop: 03/14/17 20:59 Last Admin: 01/13/17 20:43 Dose: 10 mg Calcium/Vitamin D (Oscal W/Vitamin D) 1 tab PO DAILY [facility] Stop: 03/08/17 08:59 Last Admin: 01/13/17 09:50 Dose: 1 tab Cyanocobalamin (Vitamin B12) 500 mcg PO DAILY [facility] Stop: 03/08/17 08:59 Last Admin: 01/13/17 09:50 Dose: 500 mcg Diltiazem HCl (Cardizem) 20 mg IVP Q4HR PRN PRN Reason: FOR HR>130 Stop: 03/13/17 03:53 Last Admin: 01/12/17 20:50 Dose: 20 mg Docusate Sodium (Colace) 100 mg PO DAILY [facility] Stop: 03/08/17 08:59 Last Admin: 01/13/17 09:50 Dose: 100 mg Heparin Sodium (Porcine) (Heparin) 5,000 units SUBQ Q12HR [facility] Stop: 03/08/17 20:59 Last Admin: 01/13/17 20:42 Dose: 5,000 units Piperacillin Sod/Tazobactam (Sod 3.375 gm/ Sodium Chloride) 50 mls @ 100 mls/ hr IV Q6HR [facility] Stop: 03/13/17 08:49 Last Admin: 01/14/17 06:03 Dose: 100 mls/hr Vancomycin HCl 1.5 gm/ Sodium (Chloride) 500 mls @ 250 mls/hr IV Q24HR@0900 [facility] Stop: 03/13/17 09:59 Last Infusion: 01/13/17 11:55 Dose: Infused Levetiracetam (Keppra Pb) 500 mg in 100 mls @ 400 mls/hr IV Q12HR@0900,2100 [facility] Stop: 03/13/17 10:29 Last Admin: 01/13/17 20:43 Dose: 400 mls/hr Potassium Chloride/Dextrose/Sod Cl (D5-0.45ns W/40 Meq Kcl) 1,000 mls @ 75 mls/ hr IV .[id number] [facility] Stop: 03/14/17 08:29 Last Admin: 01/14/17 03:40 Dose: 75 mls/hr Methylprednisolone Sodium Succinate (Solu-Medrol) 80 mg IVP Q12HR [facility] Stop: 03/13/17 20:59 Last Admin: 01/13/17 20:41 Dose: 80 mg Mineral Oil (Fleet Mineral Oil) 135 ml RC DAILY PRN PRN Reason: CONSTIPATION Stop: 03/13/17 12:59 Last Admin: 01/12/17 13:41 Dose: 135 ml Miscellaneous (Vte Chemical Prophylaxis Screen/ Admission) 1 ea PRN PRN PRN Reason: PROTOCOL Stop: 03/08/17 11:10 Miscellaneous (Vancomycin Iv Per Pharmacy) 1 ea PRN PRN PRN Reason: PROTOCOL Stop: 03/13/17 08:33 Miscellaneous (Zosyn Iv Per Pharmacy) 1 ea PRN PRN PRN Reason: PROTOCOL Stop: 03/13/17 08:34 Miscellaneous (Probiotic Screen) 1 ea PRN PRN PRN Reason: PROTOCOL Stop: 03/13/17 13:54 Polyethylene Glycol (Miralax) 17 gm PO BID [facility] Stop: 03/14/17 16:59 Last Admin: 01/13/17 16:43 Dose: 17 gm Potassium Chloride (Klor-Con) 20 meq PO DAILY [facility] Stop: 03/08/17 08:59 Last Admin: 01/13/17 09:25 Dose: 20 meq General: Alert, No acute distress HEENT: Atraumatic, PERRLA, EOMI Neck: Supple Cardiovascular: Regular rate, Normal S1, Normal S2 Lungs: Other (wheezing,) Abdomen: Bowel sounds, Soft, Other (non tender, no guarding, no rebound) Extremities: no Clubbing, no Cyanosis, no Edema Assessment/Plan - Problem List Patient Problems: All Active Problems Constipation (Acute) K59.00 Dementia (Acute) F03.90 Facial twitching (Acute) G51.4 Hypocalcemia (Acute) E83.51 Hypokalemia (Acute) E87.6 Hypomagnesemia (Acute) E83.42 Hypophosphatemia (Acute) E83.39 Ileus (Acute) K56.7 Leukocytosis (Acute) D72.829 Multiple sclerosis (Acute) G35 Seizure disorder (Acute) G40.909 Sinus bradycardia (Acute) R00.1 - Assessment Assessment: ALOC ... improved. CT head NAD, CT carotid no significant stenosis. hypotensive ... improved. will continue IV fluid support. hypernatremia Na 156+ hypokalemia ... will change fluids to D5 1/2NS @ 75cc/hr. add KCL to fluids. . Electrolyte imbalance ... will continue to monitor daily and correct as needed. 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 for carotid duplex, results pending. Leukocytosis improved ... continue Vancomycin IV and Zosyn IV per pharmacy. MS acute exacerbation ... stable. Patient to continue steroids IV. Ileus vs SBO .... keep NPO. continue IV fluids. will order KUB for today. cardiac arrhythmia ... continue anti-arrythmics per Cardiology Seizure disorder ... on Keppra - Plan Plan: ALOC ... improved. CT head NAD, CT carotid NAD. hypotensive ... improved. will continue IV fluid support. hypernatremia Na 156+ hypokalemia ... will change fluids to D5 1/2NS @ 75cc/hr. add KCL to fluids. check CMP,Mg,Phos,Ca tomorrow. Electrolyte imbalance ... will continue to monitor daily and correct as needed. CVA per MRI head ... management per Dr. Franklin. patient on Heparin drip. for carotid duplex. Leukocytosis improved ... WBC's 10K ... DC Rocephin. Will start Vancomycin IV and Zosyn IV per pharmacy MS acute exacerbation ... stable. Patient to continue steroids IV please see neurology consult, CT head neg, constipation ... continue current treatment per GI. cardiac arrhythmia ... continue treatment per Cardiology Nutritional Asmnt/Malnutr-PDOC - Dietary Evaluation Malnutrition Findings (Please click <Entered> for more info): Nutritional Asmnt/Malnutrition Start: 01/08/17 12: 55 Text: Status: Complete Freq: Document 01/08/17 12:56 GSUN (Rec: 01/08/17 13:16 GSUN [id number]) Nutritional Asmnt/Malnutrition Patient General Information Nutritional Screening Consult Diagnosis ALOC, acute MS exacerbation Pertinent Medical Hx/Surgical Hx Dementia, multiple sclerosis, constipation Subjective Information 76 year old male from SNF. RD consult for laura Huntley. Per RN notes, facial twitching on adm, currently NPO with swallow eval pending. Pt was awake during visit, followed RD with eyes, did not provide any information. Mild wasting to chest noted, loose skin to arms. Current Diet Order/ Nutrition Support NPO Pertinent Medications Vitamin C, Oscal W/Vitamin D, Vitamin B12, D5-0.45ns, Dulcolax, Colace Pertinent Labs 01/08: reviewed. Glucose 148H Nutritional Hx/Data Height 1.85 m Height (Calculated Centimeters) 185.4 Current Weight (lbs) 69.49 kg Weight (Calculated Kilograms) 69.5 Weight (Calculated Grams) 06095.4 [place] Body Weight 184 Weight Status Approriate GI Symptoms Usual diet at home [place] [facility]: pureed, large portion lunch and dinner, 4oz house supplement Skin Integrity/Comment: Audi 12. Pressure area r foot and upper back, abrasion l knee and r leg Estimated Nutritional Goals BEE in Kcals: Using Current wt Calories/Kcals/Kg IBW 184lb/83.6kg with consideration skin integrity and BMI Kcals Calculated 2089-2507kcal (25-30kcal/kg) Protein: Using Current wt Protein Calculated 84-109g (1-1.3g/kg) Fluid: ml 2090-2508ml (1ml/kcal) Nutritional Problem 2. 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 Recommend regular diet, diet texture per swallow eval (pending). SNF order pureed. Expected Outcomes/Goals Expected Outcomes/Goals 1. PO intake to meet at least 75% of estimated nutritional needs.
[2017-01-14] MEDS: Vancomycin HCl 1.5 GM in Sodium Chloride 0.9% 500 ML IV SCH (09:00)
[2017-01-14] MEDS ORDERED: Potassium Phosphate 40 MMOLE in Sodium Chloride 0.9% 250 ML IV ONE (09:30)
[2017-01-14] MEDS: Aspirin 81mg Chewable Tab PO SCH (09:35)
[2017-01-14] MEDS: Atorvastatin Calcium 10 MG TAB PO SCH (09:35)
[2017-01-14] MEDS: Calcium Carb/Vit D 500 mg/200 U Tab PO SCH (09:35)
[2017-01-14] MEDS: Potassium Chloride 20 mEq ER Tab PO SCH (09:35)
[2017-01-14] MEDS: Multivitamin w/ Minerals Tab PO SCH (09:35)
[2017-01-14] MEDS: Polyvinyl Alcohol Ophth Soln 15 mL Bottle EACH EYE SCH ×2 (09:35→17:29)
[2017-01-14] MEDS: POLYETHYLENE GLYCOL 3350 17 GM PACK PO SCH ×2 (09:35→17:29)
--- NOTE | 2017-01-14 09:55 | GI Progress Note ---
Subjective - Review of Systems Subjective: Pt small BM last night despite aggressive regimen. NG tube in place and feeds going in. Na remains 156 Objective - Results Result Diagrams: 01/13/17 04:08 01/14/17 08:05 Recent Labs: Laboratory Last Values WBC 10.8 Th/cmm (4.8-10.8) D 01/13/17 04:08 RBC 3.92 Mil/cmm (3.80-5.80) 01/13/17 04:08 Hgb 12.4 gm/dL (12-16) 01/13/17 04:08 Hct 37.8 % (41.0-60) L 01/13/17 04:08 MCV 96.4 fl (80-99) 01/13/17 04:08 MCH 31.6 pg (27.0-31.0) H 01/13/17 04:08 MCHC Differential 32.8 pg (28.0-36.0) 01/13/17 04:08 RDW 14.0 % (11.5-20.0) 01/13/17 04:08 Plt Count 118 Th/cmm (150-400) L 01/13/17 04:08 MPV 8.3 fl 01/13/17 04:08 Band Neutrophils % 4 % (0-10) 01/13/17 04:08 Neutrophils (Manual) 91 % (40-80) H 01/13/17 04:08 Lymphocytes 4 % (20-50) L 01/13/17 04:08 Monocytes 1 % (2-10) L 01/13/17 04:08 Eosinophils 0 % (0-5) 01/13/17 04:08 Basophils 0 % (0-3) 01/13/17 04:08 Platelet Estimate ADEQUATE (NORMAL) 01/13/17 04:08 Platelet Morphology NORMAL (NORMAL) 01/13/17 04:08 Anisocytosis 1+ 01/06/17 12:32 RBC Morph Micro Appear NORMAL (NORMAL) 01/13/17 04:08 PT 12.9 SECONDS (9.5-11.5) H 01/06/17 10:50 INR 1.23 (0.5-1.4) 01/06/17 10:50 PTT (Actin FS) 37.0 SECONDS (26.0-38.0) 01/06/17 10:50 Sodium 156 mEq/L (136-145) H 01/14/17 08:05 Potassium 3.8 mEq/L (3.5-5.1) 01/14/17 08:05 Chloride 123 mEq/L (98-107) H 01/14/17 08:05 Carbon Dioxide 29.0 mEq/L (21.0-31.0) 01/14/17 08:05 Anion Gap 7.8 (7.0-16.0) 01/14/17 08:05 BUN 32 mg/dL (7-25) H 01/14/17 08:05 Creatinine 0.7 mg/dL (0.7-1.3) 01/14/17 08:05 Est GFR ( Amer) TNP 01/14/17 08:05 Est GFR (Non-Af Amer) TNP 01/14/17 08:05 BUN/Creatinine Ratio 45.7 01/14/17 08:05 Glucose 234 mg/dL (70-105) H 01/14/17 08:05 POC Glucose 138 MG/DL (70 - 105) H 01/11/17 21:55 Whole Bld Lactic Acid 0.95 mmol/L (0.60-1.99) 01/06/17 10:53 Calcium 8.4 mg/dL (8.6-10.3) L 01/14/17 08:05 Phosphorus 1.8 mg/dL (2.5-5.0) L 01/14/17 08:05 Magnesium 2.5 mg/dL (1.9-2.7) 01/14/17 08:05 Total Bilirubin 0.5 mg/dL (0.3-1.0) 01/14/17 08:05 AST 13 U/L (13-39) 01/14/17 08:05 ALT 18 U/L (7-52) 01/14/17 08:05 Alkaline Phosphatase 48 U/L (34-104) 01/14/17 08:05 Creatine Kinase 52 U/L (30-223) 01/06/17 10:50 Total Protein 5.3 gm/dL (6.0-8.3) L 01/14/17 08:05 Albumin 2.7 gm/dL (4.2-5.5) L 01/14/17 08:05 Globulin 2.6 gm/dL 01/14/17 08:05 Albumin/Globulin Ratio 1.0 (1.0-1.8) 01/14/17 08:05 Triglycerides 343 mg/dL (<150) H 01/11/17 09:15 Cholesterol 163 mg/dL (<200) 01/11/17 09:15 LDL Cholesterol Direct 82 mg/dL (75-193) 01/11/17 09:15 HDL Cholesterol 46 mg/dL (23-92) 01/11/17 09:15 TSH 0.39 uIU/ml (0.34-5.60) 01/06/17 11:59 PTH Intact 31 pg/mL (15-65) 01/06/17 12:09 Urine Source CATH 01/11/17 16:00 Urine Color YELLOW 01/11/17 16:00 Urine Clarity CLOUDY (CLEAR) 01/11/17 16:00 Urine pH 5.5 (4.6 - 8.0) 01/11/17 16:00 Ur Specific [place] >= 1.030 (1.005-1.030) 01/11/17 16:00 Urine Protein 100 mg/dL (NEGATIVE) H 01/11/17 16:00 Urine Glucose (UA) 100 mg/dL (NEGATIVE) H 01/11/17 16:00 Urine Ketones 15 mg/dL (NEGATIVE) H 01/11/17 16:00 Urine Blood MODERATE (NEGATIVE) H 01/11/17 16:00 Urine Nitrate NEGATIVE (NEGATIVE) 01/11/17 16:00 Urine Bilirubin SMALL (NEGATIVE) H 01/11/17 16:00 Urine Urobilinogen 0.2 E.U./dL (0.2 - 1.0) 01/11/17 16:00 Ur Leukocyte Esterase SMALL (NEGATIVE) H 01/11/17 16:00 Urine RBC 5-10 /hpf (0-5) H 01/11/17 16:00 Urine WBC 50-100 /hpf (0-5) H 01/11/17 16:00 Ur Epithelial Cells FEW /lpf (FEW) 01/11/17 16:00 Amorphous Sediment MODERATE URATES (NONE SEEN) 01/11/17 16:00 Urine Bacteria MODERATE /hpf (NONE SEEN) 01/11/17 16:00 Fine Granular Casts 0-2 /lpf (NONE SEEN) H 01/11/17 16:00 Urine Yeast FEW /hpf (NONE SEEN) H 01/11/17 16:00 Vancomycin Trough 7.3 ug/mL (10-20) L 01/14/17 08:05 - Physical Exam Vitals and I&O: Vital Signs Temp 98.2 F 01/14/17 07:00 Pulse 86 01/14/17 07:00 Resp 21 01/14/17 07:00 BP 137/67 01/14/17 07:00 Pulse Ox 96 01/14/17 07:00 Intake & Output 01/13/17 01/14/17 01/14/17 18:59 06:59 18:59 Intake Total 1540 1570 Output Total 410 425 Balance 1130 1145 Weight (lbs) 72.688 kg 78.834 kg Intake: Intake, IV Amount 900 1150 D5-0.45NS w/40 mEq KCL 1, 1000 000 ml @ 75 mls/hr IV . [id number] [facility] Rx#:[id number] KCL 20mEq/100mL Premix 20 100 meq In 100 ml @ 50 mls/ hr IV Q2H [facility] Rx#: [id number] Levetiracetam 500mg/100mL 200 100 500 mg In 100 ml @ 400 mls/hr IV Q12HR@0900,2100 [facility] Rx#:[id number] Piperacillin Sodium/ 100 50 Tazobact 3.375 gm In Sodium Chloride 0.9% 50 ml @ 100 mls/hr IV Q6HR [facility] Rx#:[id number] Vancomycin HCl 1.5 gm In 500 Sodium Chloride 0.9% 500 ml @ 250 mls/hr IV Q24HR@ 0900 [facility] Rx#:[id number] Oral 0 Tube Feeding 140 420 Other 500 Output: Urine 410 425 Other: # Bowel Movements 1 1 Stool Characteristics Liquid Liquid Brown Brown Active Medications: Current Medications Acetaminophen (Tylenol 650mg Supp) 650 mg RC Q4H PRN PRN Reason: Fever > 101 Stop: 03/10/17 13:04 Last Admin: 01/12/17 03:37 Dose: 650 mg Albuterol/Ipratropium (Duoneb Neb) 3 ml HHN Q4HRT [facility] Stop: 03/11/17 14:59 Last Admin: 01/14/17 06:51 Dose: 3 ml Albuterol/Ipratropium (Duoneb Neb) 3 ml HHN Q2HRT PRN PRN Reason: Wheezing Stop: 03/11/17 13:46 Artificial Tears (Artificial Tears Ophth Soln) 1 drop EACH EYE BID [facility] Stop: 03/08/17 08:59 Last Admin: 01/14/17 09:35 Dose: 1 drop Ascorbic Acid (Vitamin C) 500 mg PO DAILY [facility] Stop: 03/08/17 08:59 Last Admin: 01/14/17 09:35 Dose: 500 mg Aspirin (Aspirin Chewable) 81 mg PO DAILY [facility] Stop: 03/13/17 08:59 Last Admin: 01/14/17 09:35 Dose: 81 mg Atorvastatin Calcium (Lipitor) 20 mg PO DAILY [facility] PRN Reason: Protocol Stop: 03/12/17 16:29 Last Admin: 01/14/17 09:35 Dose: 20 mg Atropine Sulfate (Atropine Syringe) 1 mg IVP Q4HR PRN PRN Reason: HR BELOW 40 Stop: 03/09/17 08:32 Last Admin: 01/09/17 01:00 Dose: 1 mg Bisacodyl (Dulcolax 10 Mg Supp) 10 mg RC HS [facility] Stop: 03/14/17 20:59 Last Admin: 01/13/17 20:43 Dose: 10 mg Calcium/Vitamin D (Oscal W/Vitamin D) 1 tab PO DAILY [facility] Stop: 03/08/17 08:59 Last Admin: 01/14/17 09:35 Dose: 1 tab Cyanocobalamin (Vitamin B12) 500 mcg PO DAILY [facility] Stop: 03/08/17 08:59 Last Admin: 01/14/17 09:34 Dose: 500 mcg Diltiazem HCl (Cardizem) 20 mg IVP Q4HR PRN PRN Reason: FOR HR>130 Stop: 03/13/17 03:53 Last Admin: 01/12/17 20:50 Dose: 20 mg Docusate Sodium (Colace) 100 mg PO DAILY [facility] Stop: 03/08/17 08:59 Last Admin: 01/14/17 09:35 Dose: 100 mg Heparin Sodium (Porcine) (Heparin) 5,000 units SUBQ Q12HR [facility] Stop: 03/08/17 20:59 Last Admin: 01/14/17 09:33 Dose: 5,000 units Piperacillin Sod/Tazobactam (Sod 3.375 gm/ Sodium Chloride) 50 mls @ 100 mls/ hr IV Q6HR [facility] Stop: 03/13/17 08:49 Last Admin: 01/14/17 06:03 Dose: 100 mls/hr Vancomycin HCl 1.5 gm/ Sodium (Chloride) 500 mls @ 250 mls/hr IV Q24HR@0900 [facility] Stop: 03/13/17 09:59 Last Admin: 01/14/17 09:00 Dose: 250 mls/hr Levetiracetam (Keppra Pb) 500 mg in 100 mls @ 400 mls/hr IV Q12HR@0900,2100 [facility] Stop: 03/13/17 10:29 Last Admin: 01/14/17 08:30 Dose: 400 mls/hr Potassium Chloride 40 meq/ (Dextrose) 1,020 mls @ 75 mls/hr IV .[id number] [facility] Stop: 03/15/17 09:00 Last Admin: 01/14/17 09:30 Dose: 75 mls/hr Potassium Phosphate 40 mmole/ (Sodium Chloride) 263.3333 mls @ 42.5 mls/hr IV X1 ONE Stop: 01/14/17 15:41 Lorazepam (Ativan) 1 mg IVP Q4HR PRN; Protocol PRN Reason: Seizure Stop: 03/15/17 09:07 Methylprednisolone Sodium Succinate (Solu-Medrol) 80 mg IVP Q12HR [facility] Stop: 03/13/17 20:59 Last Admin: 01/14/17 09:34 Dose: 80 mg Mineral Oil (Fleet Mineral Oil) 135 ml RC DAILY PRN PRN Reason: CONSTIPATION Stop: 03/13/17 12:59 Last Admin: 01/12/17 13:41 Dose: 135 ml Mineral Oil (Mineral Oil 30 Ml) 30 ml NG Q6HR [facility] Stop: 03/15/17 11:59 Miscellaneous (Vte Chemical Prophylaxis Screen/ Admission) 1 ea MC PRN PRN PRN Reason: PROTOCOL Stop: 03/08/17 11:10 Miscellaneous (Vancomycin Iv Per Pharmacy) 1 ea PRN PRN PRN Reason: PROTOCOL Stop: 03/13/17 08:33 Miscellaneous (Zosyn Iv Per Pharmacy) 1 ea PRN PRN PRN Reason: PROTOCOL Stop: 03/13/17 08:34 Miscellaneous (Probiotic Screen) 1 ea PRN PRN PRN Reason: PROTOCOL Stop: 03/13/17 13:54 Polyethylene Glycol (Miralax) 17 gm PO BID LIZY Stop: 03/14/17 16:59 Last Admin: 01/14/17 09:35 Dose: 17 gm Potassium Chloride (Klor-Con) 20 meq PO DAILY LIZY Stop: 03/08/17 08:59 Last Admin: 01/14/17 09:35 Dose: 20 meq General: Alert, No acute distress HEENT: Atraumatic, PERRLA, EOMI Neck: Supple Cardiovascular: Regular rate, Normal S1, Normal S2 Lungs: Other (wheezing,) Abdomen: Bowel sounds, Soft, Other (non tender, no guarding, no rebound) Extremities: no Clubbing, no Cyanosis, no Edema Assessment/Plan - Problem List Patient Problems: All Active Problems Constipation (Acute) K59.00 Dementia (Acute) F03.90 Facial twitching (Acute) G51.4 Hypocalcemia (Acute) E83.51 Hypokalemia (Acute) E87.6 Hypomagnesemia (Acute) E83.42 Hypophosphatemia (Acute) E83.39 Ileus (Acute) K56.7 Leukocytosis (Acute) D72.829 Multiple sclerosis (Acute) G35 Seizure disorder (Acute) G40.909 Sinus bradycardia (Acute) R00.1 - Assessment Assessment: # Fecal impaction Reaccumulated, and Small bowel series showed further impaction on 01/11. Further bowel prep on 01/12 with more stool evacuation. # Dilated CBD on CT MRCP shows non dilated CBD at 3mm, although distal portion not completely visualized. Cannot exlude a distal intraluminal defect, although given that the duct diameter is only 3mm, and there is abnormalities in the pt's LFTs, the probability of choledocholithiasis is small. ERCP in this patient to clarify this issue would pose significant risk, especially given the pts other numerous medical conditions. In the absence of any clinical or laboratory signs of biliary obstruction, the risk of ERCP outweighs any possible diagnostic or therapeutic benefit. This can be revisited if the clinical situation changes. # Hypernatremia Fluids have been switched to D5W by Dr Tucker Plan: - Plan to prevent further impaction: bid miralax, daily dulcolax spp, bid colace , enema prn. If this fails, may need an agent such as amitiza or linzess if available. Dr Tucker ordered mineral oil q6h by NG tube as well - fleet enema x 1 now, continue enemas at night (prn order in place) - Sodium correction as per Dr Tucker - ERCP is not planned at this point given the above discussion - Receiving NG feeding given no evidence of obstruction. As long as pt is having BMs, can continue feeding. - agree with abx - NG feeds for now, if pt fails to regain sufficient MS to eat on his own, he will need PEG tube. Continue to monitor.
[2017-01-14] MEDS: MINERAL OIL ENEMA 135 ML BOTTLE RC PRN (10:49)
--- NOTE | 2017-01-14 23:53 | Infectious Disease Prog Note ---
Infectious Disease Subjective - Review of Systems Service Date: 01/14/17 Subjective: There is no new change, there is no fever. Downgraded to the tele. Infectious Disease Objective - Results Result Diagrams: 01/13/17 04:08 01/14/17 08:05 Recent Labs: Laboratory Last Values WBC 10.8 Th/cmm (4.8-10.8) D 01/13/17 04:08 RBC 3.92 Mil/cmm (3.80-5.80) 01/13/17 04:08 Hgb 12.4 gm/dL (12-16) 01/13/17 04:08 Hct 37.8 % (41.0-60) L 01/13/17 04:08 MCV 96.4 fl (80-99) 01/13/17 04:08 MCH 31.6 pg (27.0-31.0) H 01/13/17 04:08 MCHC Differential 32.8 pg (28.0-36.0) 01/13/17 04:08 RDW 14.0 % (11.5-20.0) 01/13/17 04:08 Plt Count 118 Th/cmm (150-400) L 01/13/17 04:08 MPV 8.3 fl 01/13/17 04:08 Band Neutrophils % 4 % (0-10) 01/13/17 04:08 Neutrophils (Manual) 91 % (40-80) H 01/13/17 04:08 Lymphocytes 4 % (20-50) L 01/13/17 04:08 Monocytes 1 % (2-10) L 01/13/17 04:08 Eosinophils 0 % (0-5) 01/13/17 04:08 Basophils 0 % (0-3) 01/13/17 04:08 Platelet Estimate ADEQUATE (NORMAL) 01/13/17 04:08 Platelet Morphology NORMAL (NORMAL) 01/13/17 04:08 Anisocytosis 1+ 01/06/17 12:32 RBC Morph Micro Appear NORMAL (NORMAL) 01/13/17 04:08 PT 12.9 SECONDS (9.5-11.5) H 01/06/17 10:50 INR 1.23 (0.5-1.4) 01/06/17 10:50 PTT (Actin FS) 37.0 SECONDS (26.0-38.0) 01/06/17 10:50 Sodium 156 mEq/L (136-145) H 01/14/17 08:05 Potassium 3.8 mEq/L (3.5-5.1) 01/14/17 08:05 Chloride 123 mEq/L (98-107) H 01/14/17 08:05 Carbon Dioxide 29.0 mEq/L (21.0-31.0) 01/14/17 08:05 Anion Gap 7.8 (7.0-16.0) 01/14/17 08:05 BUN 32 mg/dL (7-25) H 01/14/17 08:05 Creatinine 0.7 mg/dL (0.7-1.3) 01/14/17 08:05 Est GFR ( Amer) TNP 01/14/17 08:05 Est GFR (Non-Af Amer) TNP 01/14/17 08:05 BUN/Creatinine Ratio 45.7 01/14/17 08:05 Glucose 234 mg/dL (70-105) H 01/14/17 08:05 POC Glucose 138 MG/DL (70 - 105) H 01/11/17 21:55 Hemoglobin A1c % 5.7 % (4.0-6.0) 01/14/17 09:07 Whole Bld Lactic Acid 0.95 mmol/L (0.60-1.99) 01/06/17 10:53 Calcium 8.4 mg/dL (8.6-10.3) L 01/14/17 08:05 Phosphorus 1.8 mg/dL (2.5-5.0) L 01/14/17 08:05 Magnesium 2.5 mg/dL (1.9-2.7) 01/14/17 08:05 Total Bilirubin 0.5 mg/dL (0.3-1.0) 01/14/17 08:05 AST 13 U/L (13-39) 01/14/17 08:05 ALT 18 U/L (7-52) 01/14/17 08:05 Alkaline Phosphatase 48 U/L (34-104) 01/14/17 08:05 Creatine Kinase 52 U/L (30-223) 01/06/17 10:50 Total Protein 5.3 gm/dL (6.0-8.3) L 01/14/17 08:05 Albumin 2.7 gm/dL (4.2-5.5) L 01/14/17 08:05 Globulin 2.6 gm/dL 01/14/17 08:05 Albumin/Globulin Ratio 1.0 (1.0-1.8) 01/14/17 08:05 Triglycerides 343 mg/dL (<150) H 01/11/17 09:15 Cholesterol 163 mg/dL (<200) 01/11/17 09:15 LDL Cholesterol Direct 82 mg/dL (75-193) 01/11/17 09:15 HDL Cholesterol 46 mg/dL (23-92) 01/11/17 09:15 TSH 0.39 uIU/ml (0.34-5.60) 01/06/17 11:59 PTH Intact 31 pg/mL (15-65) 01/06/17 12:09 Urine Source CATH 01/11/17 16:00 Urine Color YELLOW 01/11/17 16:00 Urine Clarity CLOUDY (CLEAR) 01/11/17 16:00 Urine pH 5.5 (4.6 - 8.0) 01/11/17 16:00 Ur Specific [place] >= 1.030 (1.005-1.030) 01/11/17 16:00 Urine Protein 100 mg/dL (NEGATIVE) H 01/11/17 16:00 Urine Glucose (UA) 100 mg/dL (NEGATIVE) H 01/11/17 16:00 Urine Ketones 15 mg/dL (NEGATIVE) H 01/11/17 16:00 Urine Blood MODERATE (NEGATIVE) H 01/11/17 16:00 Urine Nitrate NEGATIVE (NEGATIVE) 01/11/17 16:00 Urine Bilirubin SMALL (NEGATIVE) H 01/11/17 16:00 Urine Urobilinogen 0.2 E.U./dL (0.2 - 1.0) 01/11/17 16:00 Ur Leukocyte Esterase SMALL (NEGATIVE) H 01/11/17 16:00 Urine RBC 5-10 /hpf (0-5) H 01/11/17 16:00 Urine WBC 50-100 /hpf (0-5) H 01/11/17 16:00 Ur Epithelial Cells FEW /lpf (FEW) 01/11/17 16:00 Amorphous Sediment MODERATE URATES (NONE SEEN) 01/11/17 16:00 Urine Bacteria MODERATE /hpf (NONE SEEN) 01/11/17 16:00 Fine Granular Casts 0-2 /lpf (NONE SEEN) H 01/11/17 16:00 Urine Yeast FEW /hpf (NONE SEEN) H 01/11/17 16:00 Vancomycin Trough 7.3 ug/mL (10-20) L 01/14/17 08:05 - Physical Exam Vitals and I&O: Vital Signs Temp 97.3 F 01/14/17 23:00 Pulse 77 01/14/17 23:00 Resp 23 01/14/17 23:00 BP 124/78 01/14/17 23:00 Pulse Ox 98 01/14/17 23:00 Intake & Output 01/14/17 01/14/17 01/15/17 06:59 18:59 06:59 Intake Total 1620 1630 Output Total 425 420 Balance 1195 1210 Weight (lbs) 78.834 kg 79.01 kg Intake: Intake, IV Amount 1200 700 D5-0.45NS w/40 mEq KCL 1, 1000 000 ml @ 75 mls/hr IV . [id number] [facility] Rx#:[id number] Levetiracetam 500mg/100mL 100 100 500 mg In 100 ml @ 400 mls/hr IV Q12HR@0900,2100 [facility] Rx#:[id number] Piperacillin Sodium/ 100 100 Tazobact 3.375 gm In Sodium Chloride 0.9% 50 ml @ 100 mls/hr IV Q6HR [facility] Rx#:[id number] Vancomycin HCl 1.5 gm In 500 Sodium Chloride 0.9% 500 ml @ 250 mls/hr IV Q24HR@ 0900 [facility] Rx#:[id number] Oral 0 Tube Feeding 420 450 Other 480 Output: Urine 425 420 Other: # Bowel Movements 1 2 Stool Characteristics Liquid Liquid Liquid Brown Brown Brown Active Medications: Current Medications Acetaminophen (Tylenol 650mg Supp) 650 mg RC Q4H PRN PRN Reason: Fever > 101 Stop: 03/10/17 13:04 Last Admin: 01/12/17 03:37 Dose: 650 mg Albuterol/Ipratropium (Duoneb Neb) 3 ml HHN Q4HRT [facility] Stop: 03/11/17 14:59 Last Admin: 01/14/17 22:07 Dose: 3 ml Albuterol/Ipratropium (Duoneb Neb) 3 ml HHN Q2HRT PRN PRN Reason: Wheezing Stop: 03/11/17 13:46 Artificial Tears (Artificial Tears Ophth Soln) 1 drop EACH EYE BID [facility]ZY Stop: 03/08/17 08:59 Last Admin: 01/14/17 17:29 Dose: 1 drop Ascorbic Acid (Vitamin C) 500 mg PO DAILY ILZY Stop: 03/08/17 08:59 Last Admin: 01/14/17 09:35 Dose: 500 mg Aspirin (Aspirin Chewable) 81 mg PO DAILY LIZY Stop: 03/13/17 08:59 Last Admin: 01/14/17 09:35 Dose: 81 mg Atorvastatin Calcium (Lipitor) 20 mg PO DAILY LIZY PRN Reason: Protocol Stop: 03/12/17 16:29 Last Admin: 01/14/17 09:35 Dose: 20 mg Atropine Sulfate (Atropine Syringe) 1 mg IVP Q4HR PRN PRN Reason: HR BELOW 40 Stop: 03/09/17 08:32 Last Admin: 01/09/17 01:00 Dose: 1 mg Bisacodyl (Dulcolax 10 Mg Supp) 10 mg RC HS LIZY Stop: 03/14/17 20:59 Last Admin: 01/14/17 21:45 Dose: Not Given Calcium/Vitamin D (Oscal W/Vitamin D) 1 tab PO DAILY LIZY Stop: 03/08/17 08:59 Last Admin: 01/14/17 09:35 Dose: 1 tab Cyanocobalamin (Vitamin B12) 500 mcg PO DAILY [facility]ZY Stop: 03/08/17 08:59 Last Admin: 01/14/17 09:34 Dose: 500 mcg Diltiazem HCl (Cardizem) 20 mg IVP Q4HR PRN PRN Reason: FOR HR>130 Stop: 03/13/17 03:53 Last Admin: 01/12/17 20:50 Dose: 20 mg Docusate Sodium (Colace) 100 mg PO DAILY LIZY Stop: 03/08/17 08:59 Last Admin: 01/14/17 09:35 Dose: 100 mg Heparin Sodium (Porcine) (Heparin) 5,000 units SUBQ Q12HR [facility] Stop: 03/08/17 20:59 Last Admin: 01/14/17 20:33 Dose: 5,000 units Piperacillin Sod/Tazobactam (Sod 3.375 gm/ Sodium Chloride) 50 mls @ 100 mls/ hr IV Q6HR [facility] Stop: 03/13/17 08:49 Last Infusion: 01/14/17 18:00 Dose: Infused Vancomycin HCl 1.5 gm/ Sodium (Chloride) 500 mls @ 250 mls/hr IV Q24HR@0900 [facility] Stop: 03/13/17 09:59 Last Infusion: 01/14/17 11:00 Dose: Infused Levetiracetam (Keppra Pb) 500 mg in 100 mls @ 400 mls/hr IV Q12HR@0900,2100 [facility] Stop: 03/13/17 10:29 Last Admin: 01/14/17 20:33 Dose: 400 mls/hr Potassium Chloride 40 meq/ (Dextrose) 1,020 mls @ 75 mls/hr IV .[id number] [facility] Stop: 03/15/17 09:00 Last Admin: 01/14/17 09:30 Dose: 75 mls/hr Lorazepam (Ativan) 1 mg IVP Q4HR PRN; Protocol PRN Reason: Seizure Stop: 03/15/17 09:07 Methylprednisolone Sodium Succinate (Solu-Medrol) 80 mg IVP Q12HR [facility] Stop: 03/13/17 20:59 Last Admin: 01/14/17 20:33 Dose: 80 mg Mineral Oil (Fleet Mineral Oil) 135 ml RC DAILY PRN PRN Reason: CONSTIPATION Stop: 03/13/17 12:59 Last Admin: 01/14/17 10:49 Dose: 135 ml Mineral Oil (Mineral Oil 30 Ml) 30 ml NG Q6HR [facility] Stop: 03/15/17 11:59 Last Admin: 01/14/17 17:29 Dose: 30 ml Miscellaneous (Vte Chemical Prophylaxis Screen/ Admission) 1 ea MC PRN PRN PRN Reason: PROTOCOL Stop: 03/08/17 11:10 Miscellaneous (Vancomycin Iv Per Pharmacy) 1 ea PRN PRN PRN Reason: PROTOCOL Stop: 03/13/17 08:33 Miscellaneous (Zosyn Iv Per Pharmacy) 1 ea PRN PRN PRN Reason: PROTOCOL Stop: 03/13/17 08:34 Miscellaneous (Probiotic Screen) 1 ea PRN PRN PRN Reason: PROTOCOL Stop: 03/13/17 13:54 Polyethylene Glycol (Miralax) 17 gm PO BID [facility] Stop: 03/14/17 16:59 Last Admin: 01/14/17 17:29 Dose: 17 gm Potassium Chloride (Klor-Con) 20 meq PO DAILY [facility] Stop: 03/08/17 08:59 Last Admin: 01/14/17 09:35 Dose: 20 meq General: no acute distress, cachectic HEENT: atraumatic, normocephalic, PERRLA, EOMI, moist mucous membrane Neck: supple, no thyromegaly Cardiovascular: S1S2, regular Lungs: clear to auscultation bilaterally, clear to percussion Abdomen: soft, no tender, no distended Extremities: no cyanosis, no clubbing, no edema Neurological: awake, alert Infectious Disease Assmt/Plan - Problem List Patient Problems: All Active Problems Constipation (Acute) K59.00 Dementia (Acute) F03.90 Facial twitching (Acute) G51.4 Hypocalcemia (Acute) E83.51 Hypokalemia (Acute) E87.6 Hypomagnesemia (Acute) E83.42 Hypophosphatemia (Acute) E83.39 Ileus (Acute) K56.7 Leukocytosis (Acute) D72.829 Multiple sclerosis (Acute) G35 Seizure disorder (Acute) G40.909 Sinus bradycardia (Acute) R00.1 - Assessment Assessment: 1. Leukocytosis and low-grade fever, sepsis. 2. Fecal impaction. 3. Possible common bile duct obstruction distal end, cholelithiasis. 4. Supraventricular tachycardia. 5. Dementia. 6. Multiple sclerosis. 7. Urinary tract infection. - Pseudomonas. - Plan Plan: Continue vancomycin and Zosyn. Check UA. Nutritional Asmnt/Malnutr-PDOC - Dietary Evaluation Malnutrition Findings (Please click <Entered> for more info): Nutritional Asmnt/Malnutrition Start: 01/08/17 12: 55 Text: Status: Complete Freq: Document 01/08/17 12:56 GSUN (Rec: 01/08/17 13:16 [id number]) Nutritional Asmnt/Malnutrition Patient General Information Nutritional Screening Consult Diagnosis ALOC, acute MS exacerbation Pertinent Medical Hx/Surgical Hx Dementia, multiple sclerosis, constipation Subjective Information 76 year old male from SNF. RD consult for low Audi. Per RN notes, facial twitching on adm, currently NPO with swallow eval pending. Pt was awake during visit, followed RD with eyes, did not provide any information. Mild wasting to chest noted, loose skin to arms. Current Diet Order/ Nutrition Support NPO Pertinent Medications Vitamin C, Oscal W/Vitamin D, Vitamin B12, D5-0.45ns, Dulcolax, Colace Pertinent Labs 01/08: reviewed. Glucose 148H Nutritional Hx/Data Height 1.85 m Height (Calculated Centimeters) 185.4 Current Weight (lbs) 69.49 kg Weight (Calculated Kilograms) 69.5 Weight (Calculated Grams) 33476.4 [place] Body Weight 184 Weight Status Approriate GI Symptoms Usual diet at home [facility]: pureed, large portion lunch and dinner, 4oz house supplement Skin Integrity/Comment: Audi 12. Pressure area r foot and upper back, abrasion l knee and r leg Estimated Nutritional Goals BEE in Kcals: Using Current wt Calories/Kcals/Kg IBW 184lb/83.6kg with consideration skin integrity and BMI Kcals Calculated 2090-2508kcal (25-30kcal/kg) Protein: Using Current wt Protein Calculated 84-109g (1-1.3g/kg) Fluid: ml 2090-2508ml (1ml/kcal) Nutritional Problem 2. 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 Recommend regular diet, diet texture per swallow eval (pending). SNF order pureed. Expected Outcomes/Goals Expected Outcomes/Goals 1. PO intake to meet at least 75% of estimated nutritional needs.
[2017-01-15] MEDS: Albuterol/Ipratropium Neb 3 ML AERS HHN SCH ×6 (02:01→22:55)
[2017-01-15 05:39] LABS: ALB/GLOB RATIO 1.1 (1.0-1.8); ALKALINE PHOSPHATASE 54 U/L (34-104); BILIRUBIN,TOTAL 0.4 mg/dL (0.3-1.0); BUN - UREA NITROGEN 28 mg/dL (7-25); CALCIUM SERUM 8.1 mg/dL (8.6-10.3); CARBON DIOXIDE 29.1 mEq/L (21.0-31.0); CHLORIDE 116 mEq/L (98-107); CREATININE - SERUM 0.7 mg/dL (0.7-1.3); GLUCOSE 299 mg/dL (70-105); MAGNESIUM 2.3 mg/dL (1.9-2.7); PHOSPHOROUS 2.2 mg/dL (2.5-5.0); POTASSIUM SERUM 4.1 mEq/L (3.5-5.1); SGOT 12 U/L (13-39); SGPT/ALT 16 U/L (7-52); SODIUM SERUM 148 mEq/L (136-145)
[2017-01-15 06:08] LABS: HEMATOCRIT 35.1 % (41.0-60); HEMOGLOBIN 11.7 gm/dL (12-16); MEAN CELL VOLUME 96.2 fl (80-99); MEAN CORPUSCULAR HEMOGLOBIN 32.2 pg (27.0-31.0); RED BLOOD COUNT 3.65 Mil/cmm (3.80-5.80); WHITE BLOOD COUNT 11.4 Th/cmm (4.8-10.8)
[2017-01-15 06:09] LABS: MEAN CORPUSCULAR HGB CONC 33.5 pg (28.0-36.0); MEAN PLATELET VOLUME 8.7 fl; PLATELET COUNT 129 Th/cmm (150-400); RED CELL DISTRIBUTION WIDTH 14.3 % (11.5-20.0)
[2017-01-15 06:10] LABS: BAND NEUTROPHILE 2 % (0-10); NEUTROPHILS 87 % (40-80); TOTAL CELLS COUNTED 100
[2017-01-15] MEDS ORDERED: 0.45% NS w/20 mEq KCl 1,000 ML IV SCH (08:17)
--- NOTE | 2017-01-15 08:30 | General Progress Note ---
Subjective - Review of Systems Service Date: 01/15/17 Subjective: Patient is now in sinus rhythm was transferred to med surg on telemetry. stable. Na improving. small bm yesterday. Objective - Results Result Diagrams: 01/15/17 04:50 01/15/17 04:50 Recent Labs: Laboratory Last Values WBC 11.4 Th/cmm (4.8-10.8) H 01/15/17 04:50 RBC 3.65 Mil/cmm (3.80-5.80) L 01/15/17 04:50 Hgb 11.7 gm/dL (12-16) L 01/15/17 04:50 Hct 35.1 % (41.0-60) L 01/15/17 04:50 MCV 96.2 fl (80-99) 01/15/17 04:50 MCH 32.2 pg (27.0-31.0) H 01/15/17 04:50 MCHC Differential 33.5 pg (28.0-36.0) 01/15/17 04:50 RDW 14.3 % (11.5-20.0) 01/15/17 04:50 Plt Count 129 Th/cmm (150-400) L 01/15/17 04:50 MPV 8.7 fl 01/15/17 04:50 Band Neutrophils % 2 % (0-10) 01/15/17 04:50 Neutrophils (Manual) 87 % (40-80) H 01/15/17 04:50 Lymphocytes 6 % (20-50) L 01/15/17 04:50 Monocytes 5 % (2-10) 01/15/17 04:50 Eosinophils 0 % (0-5) 01/13/17 04:08 Basophils 0 % (0-3) 01/13/17 04:08 Platelet Estimate ADEQUATE (NORMAL) 01/13/17 04:08 Platelet Morphology NORMAL (NORMAL) 01/13/17 04:08 Anisocytosis 1+ 01/06/17 12:32 RBC Morph Micro Appear NORMAL (NORMAL) 01/13/17 04:08 PT 12.9 SECONDS (9.5-11.5) H 01/06/17 10:50 INR 1.23 (0.5-1.4) 01/06/17 10:50 PTT (Actin FS) 37.0 SECONDS (26.0-38.0) 01/06/17 10:50 Sodium 148 mEq/L (136-145) H 01/15/17 04:50 Potassium 4.1 mEq/L (3.5-5.1) 01/15/17 04:50 Chloride 116 mEq/L (98-107) H 01/15/17 04:50 Carbon Dioxide 29.1 mEq/L (21.0-31.0) 01/15/17 04:50 Anion Gap 7.0 (7.0-16.0) 01/15/17 04:50 BUN 28 mg/dL (7-25) H 01/15/17 04:50 Creatinine 0.7 mg/dL (0.7-1.3) 01/15/17 04:50 Est GFR ( Amer) TNP 01/15/17 04:50 Est GFR (Non-Af Amer) TNP 01/15/17 04:50 BUN/Creatinine Ratio 40.0 01/15/17 04:50 Glucose 299 mg/dL (70-105) H 01/15/17 04:50 POC Glucose 138 MG/DL (70 - 105) H 01/11/17 21:55 Hemoglobin A1c % 5.7 % (4.0-6.0) 01/14/17 09:07 Whole Bld Lactic Acid 0.95 mmol/L (0.60-1.99) 01/06/17 10:53 Calcium 8.1 mg/dL (8.6-10.3) L 01/15/17 04:50 Phosphorus 2.2 mg/dL (2.5-5.0) L 01/15/17 04:50 Magnesium 2.3 mg/dL (1.9-2.7) 01/15/17 04:50 Total Bilirubin 0.4 mg/dL (0.3-1.0) 01/15/17 04:50 AST 12 U/L (13-39) L 01/15/17 04:50 ALT 16 U/L (7-52) 01/15/17 04:50 Alkaline Phosphatase 54 U/L (34-104) 01/15/17 04:50 Creatine Kinase 52 U/L (30-223) 01/06/17 10:50 Total Protein 4.9 gm/dL (6.0-8.3) L 01/15/17 04:50 Albumin 2.6 gm/dL (4.2-5.5) L 01/15/17 04:50 Globulin 2.3 gm/dL 01/15/17 04:50 Albumin/Globulin Ratio 1.1 (1.0-1.8) 01/15/17 04:50 Triglycerides 343 mg/dL (<150) H 01/11/17 09:15 Cholesterol 163 mg/dL (<200) 01/11/17 09:15 LDL Cholesterol Direct 82 mg/dL (75-193) 01/11/17 09:15 HDL Cholesterol 46 mg/dL (23-92) 01/11/17 09:15 TSH 0.39 uIU/ml (0.34-5.60) 01/06/17 11:59 PTH Intact 31 pg/mL (15-65) 01/06/17 12:09 Urine Source CATH 01/11/17 16:00 Urine Color YELLOW 01/11/17 16:00 Urine Clarity CLOUDY (CLEAR) 01/11/17 16:00 Urine pH 5.5 (4.6 - 8.0) 01/11/17 16:00 Ur Specific [place] >= 1.030 (1.005-1.030) 01/11/17 16:00 Urine Protein 100 mg/dL (NEGATIVE) H 01/11/17 16:00 Urine Glucose (UA) 100 mg/dL (NEGATIVE) H 01/11/17 16:00 Urine Ketones 15 mg/dL (NEGATIVE) H 01/11/17 16:00 Urine Blood MODERATE (NEGATIVE) H 01/11/17 16:00 Urine Nitrate NEGATIVE (NEGATIVE) 01/11/17 16:00 Urine Bilirubin SMALL (NEGATIVE) H 01/11/17 16:00 Urine Urobilinogen 0.2 E.U./dL (0.2 - 1.0) 01/11/17 16:00 Ur Leukocyte Esterase SMALL (NEGATIVE) H 01/11/17 16:00 Urine RBC 5-10 /hpf (0-5) H 01/11/17 16:00 Urine WBC 50-100 /hpf (0-5) H 01/11/17 16:00 Ur Epithelial Cells FEW /lpf (FEW) 01/11/17 16:00 Amorphous Sediment MODERATE URATES (NONE SEEN) 01/11/17 16:00 Urine Bacteria MODERATE /hpf (NONE SEEN) 01/11/17 16:00 Fine Granular Casts 0-2 /lpf (NONE SEEN) H 01/11/17 16:00 Urine Yeast FEW /hpf (NONE SEEN) H 01/11/17 16:00 Vancomycin Trough 7.3 ug/mL (10-20) L 01/14/17 08:05 - Physical Exam Vitals and I&O: Vital Signs Temp 99 F 01/15/17 04:00 Pulse 52 01/15/17 07:50 Resp 22 01/15/17 07:50 BP 130/74 01/15/17 04:00 Pulse Ox 96 01/15/17 07:50 Intake & Output 01/14/17 01/15/17 01/15/17 18:59 06:59 18:59 Intake Total 1630 1820 Output Total 420 1000 Balance 1210 820 Weight (lbs) 79.01 kg 80.694 kg Intake: Intake, IV Amount 700 1120 Levetiracetam 500mg/100mL 100 500 mg In 100 ml @ 400 mls/hr IV Q12HR@0900,2100 [facility] Rx#:[id number] Piperacillin Sodium/ 100 100 Tazobact 3.375 gm In Sodium Chloride 0.9% 50 ml @ 100 mls/hr IV Q6HR [facility] Rx#:[id number] Potassium Chloride 40 meq 1020 In Dextrose 5% 1,000 ml @ 75 mls/hr IV .[id number] [facility] Rx#:[id number] Vancomycin HCl 1.5 gm In 500 Sodium Chloride 0.9% 500 ml @ 250 mls/hr IV Q24HR@ 0900 [facility] Rx#:[id number] Tube Feeding 450 700 Other 480 Output: Urine 420 1000 Other: # Bowel Movements 2 1 Stool Characteristics Liquid Liquid Brown Active Medications: Current Medications Acetaminophen (Tylenol 650mg Supp) 650 mg RC Q4H PRN PRN Reason: Fever > 101 Stop: 03/10/17 13:04 Last Admin: 01/12/17 03:37 Dose: 650 mg Albuterol/Ipratropium (Duoneb Neb) 3 ml HHN Q4HRT [facility] Stop: 03/11/17 14:59 Last Admin: 01/15/17 07:35 Dose: 3 ml Albuterol/Ipratropium (Duoneb Neb) 3 ml HHN Q2HRT PRN PRN Reason: Wheezing Stop: 03/11/17 13:46 Artificial Tears (Artificial Tears Ophth Soln) 1 drop EACH EYE BID [facility] Stop: 03/08/17 08:59 Last Admin: 01/14/17 17:29 Dose: 1 drop Ascorbic Acid (Vitamin C) 500 mg PO DAILY [facility] Stop: 03/08/17 08:59 Last Admin: 01/14/17 09:35 Dose: 500 mg Aspirin (Aspirin Chewable) 81 mg PO DAILY [facility] Stop: 03/13/17 08:59 Last Admin: 01/14/17 09:35 Dose: 81 mg Atorvastatin Calcium (Lipitor) 20 mg PO DAILY [facility] PRN Reason: Protocol Stop: 03/12/17 16:29 Last Admin: 01/14/17 09:35 Dose: 20 mg Atropine Sulfate (Atropine Syringe) 1 mg IVP Q4HR PRN PRN Reason: HR BELOW 40 Stop: 03/09/17 08:32 Last Admin: 01/09/17 01:00 Dose: 1 mg Bisacodyl (Dulcolax 10 Mg Supp) 10 mg RC HS [facility] Stop: 03/14/17 20:59 Last Admin: 01/14/17 21:45 Dose: Not Given Calcium/Vitamin D (Oscal W/Vitamin D) 1 tab PO DAILY [facility] Stop: 03/08/17 08:59 Last Admin: 01/14/17 09:35 Dose: 1 tab Cyanocobalamin (Vitamin B12) 500 mcg PO DAILY [facility] Stop: 03/08/17 08:59 Last Admin: 01/14/17 09:34 Dose: 500 mcg Diltiazem HCl (Cardizem) 20 mg IVP Q4HR PRN PRN Reason: FOR HR>130 Stop: 03/13/17 03:53 Last Admin: 01/12/17 20:50 Dose: 20 mg Docusate Sodium (Colace) 100 mg PO DAILY [facility] Stop: 03/08/17 08:59 Last Admin: 01/14/17 09:35 Dose: 100 mg Heparin Sodium (Porcine) (Heparin) 5,000 units SUBQ Q12HR [facility] Stop: 03/08/17 20:59 Last Admin: 01/14/17 20:33 Dose: 5,000 units Piperacillin Sod/Tazobactam (Sod 3.375 gm/ Sodium Chloride) 50 mls @ 100 mls/ hr IV Q6HR [facility] Stop: 03/13/17 08:49 Last Infusion: 01/15/17 06:35 Dose: Infused Vancomycin HCl 1.5 gm/ Sodium (Chloride) 500 mls @ 250 mls/hr IV Q24HR@0900 [facility] Stop: 03/13/17 09:59 Last Infusion: 01/14/17 11:00 Dose: Infused Levetiracetam (Keppra Pb) 500 mg in 100 mls @ 400 mls/hr IV Q12HR@0900,2100 [facility] Stop: 03/13/17 10:29 Last Admin: 01/14/17 20:33 Dose: 400 mls/hr Potassium Chloride/Sodium Chloride (0.45% Ns W/20 Meq Kcl) 1,000 mls @ 50 mls/ hr IV .Q20H [facility] Stop: 03/16/17 08:16 Calcium Gluconate 1 gm/ (Dextrose) 110 mls @ 100 mls/hr IV X1 ONE Stop: 01/15/17 09:24 Lorazepam (Ativan) 1 mg IVP Q4HR PRN; Protocol PRN Reason: Seizure Stop: 03/15/17 09:07 Methylprednisolone Sodium Succinate (Solu-Medrol) 60 mg IVP Q12HR [facility] Stop: 03/16/17 08:59 Mineral Oil (Fleet Mineral Oil) 135 ml RC DAILY PRN PRN Reason: CONSTIPATION Stop: 03/13/17 12:59 Last Admin: 01/14/17 10:49 Dose: 135 ml Mineral Oil (Mineral Oil 30 Ml) 30 ml NG Q6HR [facility] Stop: 03/15/17 11:59 Last Admin: 01/15/17 06:06 Dose: Not Given Miscellaneous (Vte Chemical Prophylaxis Screen/ Admission) 1 ea MC PRN PRN PRN Reason: PROTOCOL Stop: 03/08/17 11:10 Miscellaneous (Vancomycin Iv Per Pharmacy) 1 ea MC PRN PRN PRN Reason: PROTOCOL Stop: 03/13/17 08:33 Miscellaneous (Zosyn Iv Per Pharmacy) 1 ea PRN PRN PRN Reason: PROTOCOL Stop: 03/13/17 08:34 Miscellaneous (Probiotic Screen) 1 ea PRN PRN PRN Reason: PROTOCOL Stop: 03/13/17 13:54 Polyethylene Glycol (Miralax) 17 gm PO BID [facility] Stop: 03/14/17 16:59 Last Admin: 01/14/17 17:29 Dose: 17 gm Potassium Chloride (Klor-Con) 20 meq PO DAILY [facility] Stop: 03/08/17 08:59 Last Admin: 01/14/17 09:35 Dose: 20 meq General: Alert, No acute distress HEENT: Atraumatic, PERRLA, EOMI Neck: Supple Cardiovascular: Regular rate, Normal S1, Normal S2 Lungs: Other (wheezing,) Abdomen: Bowel sounds, Soft, Other (non tender, no guarding, no rebound) Extremities: no Clubbing, no Cyanosis, no Edema Assessment/Plan - Problem List Patient Problems: All Active Problems Constipation (Acute) K59.00 Dementia (Acute) F03.90 Facial twitching (Acute) G51.4 Hypocalcemia (Acute) E83.51 Hypokalemia (Acute) E87.6 Hypomagnesemia (Acute) E83.42 Hypophosphatemia (Acute) E83.39 Ileus (Acute) K56.7 Leukocytosis (Acute) D72.829 Multiple sclerosis (Acute) G35 Seizure disorder (Acute) G40.909 Sinus bradycardia (Acute) R00.1 - Assessment Assessment: ALOC ... improved. CT head NAD, CT carotid no significant stenosis. hypotensive ... improved. will continue IV fluid support. hypernatremia Na 156+ hypokalemia ... will change fluids to D5 1/2NS @ 75cc/hr. add KCL to fluids. . Electrolyte imbalance ... will continue to monitor daily and correct as needed. 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 for carotid duplex, results pending. Leukocytosis improved ... continue Vancomycin IV and Zosyn IV per pharmacy. MS acute exacerbation ... stable. Patient to continue steroids IV. Ileus vs SBO .... keep NPO. continue IV fluids. will order KUB for today. cardiac arrhythmia ... continue anti-arrythmics per Cardiology Seizure disorder ... on Keppra UTI +Pseudomonas ... continue current IV antibiotics. Hyperglycemia ... will decrease solumedrol. dc D5W. - Plan Plan: ALOC ... improved. CT head NAD, CT carotid NAD. hypotensive ... improved. will continue IV fluid support. hypernatremia Na 156+ hypokalemia ... will change fluids to D5 1/2NS @ 75cc/hr. add KCL to fluids. check CMP,Mg,Phos,Ca tomorrow. Electrolyte imbalance ... will continue to monitor daily and correct as needed. CVA per MRI head ... management per Dr. Franklin. patient on Heparin drip. for carotid duplex. Leukocytosis improved ... WBC's 10K ... DC Rocephin. Will start Vancomycin IV and Zosyn IV per pharmacy MS acute exacerbation ... stable. Patient to continue steroids IV please see neurology consult, CT head neg, constipation ... continue current treatment per GI. cardiac arrhythmia ... continue treatment per Cardiology Nutritional Asmnt/Malnutr-PDOC - Dietary Evaluation Malnutrition Findings (Please click <Entered> for more info): Nutritional Asmnt/Malnutrition Start: 01/08/17 12: 55 Text: Status: Complete Freq: Document 01/08/17 12:56 GSUN (Rec: 01/08/17 13:16 GSUN [id number]) Nutritional Asmnt/Malnutrition Patient General Information Nutritional Screening Consult Diagnosis ALOC, acute MS exacerbation Pertinent Medical Hx/Surgical Hx Dementia, multiple sclerosis, constipation Subjective Information 76 year old male from SNF. RD consult for laura Huntley. Per RN notes, facial twitching on adm, currently NPO with swallow eval pending. Pt was awake during visit, followed RD with eyes, did not provide any information. Mild wasting to chest noted, loose skin to arms. Current Diet Order/ Nutrition Support NPO Pertinent Medications Vitamin C, Oscal W/Vitamin D, Vitamin B12, D5-0.45ns, Dulcolax, Colace Pertinent Labs 01/08: reviewed. Glucose 148H Nutritional Hx/Data Height 1.85 m Height (Calculated Centimeters) 185.4 Current Weight (lbs) 69.49 kg Weight (Calculated Kilograms) 69.5 Weight (Calculated Grams) 43911.4 [place] Body Weight 184 Weight Status Approriate GI Symptoms Usual diet at home [facility]: pureed, large portion lunch and dinner, 4oz house supplement Skin Integrity/Comment: Audi 12. Pressure area r foot and upper back, abrasion l knee and r leg Estimated Nutritional Goals BEE in Kcals: Using Current wt Calories/Kcals/Kg IBW 184lb/83.6kg with consideration skin integrity and BMI Kcals Calculated 2089-250kcal (25-30kcal/kg) Protein: Using Current wt Protein Calculated 84-109g (1-1.3g/kg) Fluid: ml 2089-2508ml (1ml/kcal) Nutritional Problem 2. 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 Recommend regular diet, diet texture per swallow eval (pending). SNF order pureed. Expected Outcomes/Goals Expected Outcomes/Goals 1. PO intake to meet at least 75% of estimated nutritional needs.
[2017-01-15] MEDS: Potassium Chloride 20 mEq ER Tab PO SCH (09:31)
[2017-01-15] MEDS: Multivitamin w/ Minerals Tab PO SCH (09:31)
[2017-01-15] MEDS: Atorvastatin Calcium 10 MG TAB PO SCH (09:31)
[2017-01-15] MEDS: Calcium Carb/Vit D 500 mg/200 U Tab PO SCH (09:32)
[2017-01-15] MEDS: Levetiracetam 500mg/100mL 500 MG/100 ML BAG IV SCH ×2 (09:37→21:21)
[2017-01-15] MEDS: Aspirin 81mg Chewable Tab PO SCH (09:39)
[2017-01-15] MEDS: POLYETHYLENE GLYCOL 3350 17 GM PACK PO SCH ×2 (09:40→17:29)
[2017-01-15] MEDS: Polyvinyl Alcohol Ophth Soln 15 mL Bottle EACH EYE SCH ×2 (09:53→17:29)
[2017-01-15] MEDS ORDERED: Calcium Gluconate 1 GM in Dextrose 5% 100 ML IV ONE (10:00)
--- NOTE | 2017-01-15 10:38 | GI Progress Note ---
Subjective - Review of Systems Service Date: 01/15/17 Subjective: HAD BM LAST NIGHT NO NEW COMPLAINTS Objective - Results Result Diagrams: 01/15/17 04:50 01/15/17 04:50 Recent Labs: Laboratory Last Values WBC 11.4 Th/cmm (4.8-10.8) H 01/15/17 04:50 RBC 3.65 Mil/cmm (3.80-5.80) L 01/15/17 04:50 Hgb 11.7 gm/dL (12-16) L 01/15/17 04:50 Hct 35.1 % (41.0-60) L 01/15/17 04:50 MCV 96.2 fl (80-99) 01/15/17 04:50 MCH 32.2 pg (27.0-31.0) H 01/15/17 04:50 MCHC Differential 33.5 pg (28.0-36.0) 01/15/17 04:50 RDW 14.3 % (11.5-20.0) 01/15/17 04:50 Plt Count 129 Th/cmm (150-400) L 01/15/17 04:50 MPV 8.7 fl 01/15/17 04:50 Band Neutrophils % 2 % (0-10) 01/15/17 04:50 Neutrophils (Manual) 87 % (40-80) H 01/15/17 04:50 Lymphocytes 6 % (20-50) L 01/15/17 04:50 Monocytes 5 % (2-10) 01/15/17 04:50 Eosinophils 0 % (0-5) 01/13/17 04:08 Basophils 0 % (0-3) 01/13/17 04:08 Platelet Estimate ADEQUATE (NORMAL) 01/13/17 04:08 Platelet Morphology NORMAL (NORMAL) 01/13/17 04:08 Anisocytosis 1+ 01/06/17 12:32 RBC Morph Micro Appear NORMAL (NORMAL) 01/13/17 04:08 PT 12.9 SECONDS (9.5-11.5) H 01/06/17 10:50 INR 1.23 (0.5-1.4) 01/06/17 10:50 PTT (Actin FS) 37.0 SECONDS (26.0-38.0) 01/06/17 10:50 Sodium 148 mEq/L (136-145) H 01/15/17 04:50 Potassium 4.1 mEq/L (3.5-5.1) 01/15/17 04:50 Chloride 116 mEq/L (98-107) H 01/15/17 04:50 Carbon Dioxide 29.1 mEq/L (21.0-31.0) 01/15/17 04:50 Anion Gap 7.0 (7.0-16.0) 01/15/17 04:50 BUN 28 mg/dL (7-25) H 01/15/17 04:50 Creatinine 0.7 mg/dL (0.7-1.3) 01/15/17 04:50 Est GFR ( Amer) TNP 01/15/17 04:50 Est GFR (Non-Af Amer) TNP 01/15/17 04:50 BUN/Creatinine Ratio 40.0 01/15/17 04:50 Glucose 299 mg/dL (70-105) H 01/15/17 04:50 POC Glucose 138 MG/DL (70 - 105) H 01/11/17 21:55 Hemoglobin A1c % 5.7 % (4.0-6.0) 01/14/17 09:07 Whole Bld Lactic Acid 0.95 mmol/L (0.60-1.99) 01/06/17 10:53 Calcium 8.1 mg/dL (8.6-10.3) L 01/15/17 04:50 Phosphorus 2.2 mg/dL (2.5-5.0) L 01/15/17 04:50 Magnesium 2.3 mg/dL (1.9-2.7) 01/15/17 04:50 Total Bilirubin 0.4 mg/dL (0.3-1.0) 01/15/17 04:50 AST 12 U/L (13-39) L 01/15/17 04:50 ALT 16 U/L (7-52) 01/15/17 04:50 Alkaline Phosphatase 54 U/L (34-104) 01/15/17 04:50 Creatine Kinase 52 U/L (30-223) 01/06/17 10:50 Total Protein 4.9 gm/dL (6.0-8.3) L 01/15/17 04:50 Albumin 2.6 gm/dL (4.2-5.5) L 01/15/17 04:50 Globulin 2.3 gm/dL 01/15/17 04:50 Albumin/Globulin Ratio 1.1 (1.0-1.8) 01/15/17 04:50 Triglycerides 343 mg/dL (<150) H 01/11/17 09:15 Cholesterol 163 mg/dL (<200) 01/11/17 09:15 LDL Cholesterol Direct 82 mg/dL (75-193) 01/11/17 09:15 HDL Cholesterol 46 mg/dL (23-92) 01/11/17 09:15 TSH 0.39 uIU/ml (0.34-5.60) 01/06/17 11:59 PTH Intact 31 pg/mL (15-65) 01/06/17 12:09 Urine Source CATH 01/11/17 16:00 Urine Color YELLOW 01/11/17 16:00 Urine Clarity CLOUDY (CLEAR) 01/11/17 16:00 Urine pH 5.5 (4.6 - 8.0) 01/11/17 16:00 Ur Specific [place] >= 1.030 (1.005-1.030) 01/11/17 16:00 Urine Protein 100 mg/dL (NEGATIVE) H 01/11/17 16:00 Urine Glucose (UA) 100 mg/dL (NEGATIVE) H 01/11/17 16:00 Urine Ketones 15 mg/dL (NEGATIVE) H 01/11/17 16:00 Urine Blood MODERATE (NEGATIVE) H 01/11/17 16:00 Urine Nitrate NEGATIVE (NEGATIVE) 01/11/17 16:00 Urine Bilirubin SMALL (NEGATIVE) H 01/11/17 16:00 Urine Urobilinogen 0.2 E.U./dL (0.2 - 1.0) 01/11/17 16:00 Ur Leukocyte Esterase SMALL (NEGATIVE) H 01/11/17 16:00 Urine RBC 5-10 /hpf (0-5) H 01/11/17 16:00 Urine WBC 50-100 /hpf (0-5) H 01/11/17 16:00 Ur Epithelial Cells FEW /lpf (FEW) 01/11/17 16:00 Amorphous Sediment MODERATE URATES (NONE SEEN) 01/11/17 16:00 Urine Bacteria MODERATE /hpf (NONE SEEN) 01/11/17 16:00 Fine Granular Casts 0-2 /lpf (NONE SEEN) H 01/11/17 16:00 Urine Yeast FEW /hpf (NONE SEEN) H 01/11/17 16:00 Vancomycin Trough 7.3 ug/mL (10-20) L 01/14/17 08:05 - Physical Exam Vitals and I&O: Vital Signs Temp 99 F 01/15/17 04:00 Pulse 52 01/15/17 07:50 Resp 22 01/15/17 07:50 BP 130/74 01/15/17 04:00 Pulse Ox 96 01/15/17 07:50 Intake & Output 01/14/17 01/15/17 01/15/17 18:59 06:59 18:59 Intake Total 1630 1920 Output Total 420 1000 Balance 1210 920 Weight (lbs) 79.01 kg 80.694 kg Intake: Intake, IV Amount 700 1220 Levetiracetam 500mg/100mL 100 100 500 mg In 100 ml @ 400 mls/hr IV Q12HR@0900,2100 [facility] Rx#:[id number] Piperacillin Sodium/ 100 100 Tazobact 3.375 gm In Sodium Chloride 0.9% 50 ml @ 100 mls/hr IV Q6HR [facility] Rx#:[id number] Potassium Chloride 40 meq 1020 In Dextrose 5% 1,000 ml @ 75 mls/hr IV .[id number] [facility] Rx#:[id number] Vancomycin HCl 1.5 gm In 500 Sodium Chloride 0.9% 500 ml @ 250 mls/hr IV Q24HR@ 0900 [facility] Rx#:[id number] Tube Feeding 450 700 Other 480 Output: Urine 420 1000 Other: # Bowel Movements 2 1 Stool Characteristics Liquid Liquid Brown Active Medications: Current Medications Acetaminophen (Tylenol 650mg Supp) 650 mg RC Q4H PRN PRN Reason: Fever > 101 Stop: 03/10/17 13:04 Last Admin: 01/12/17 03:37 Dose: 650 mg Albuterol/Ipratropium (Duoneb Neb) 3 ml HHN Q4HRT [facility] Stop: 03/11/17 14:59 Last Admin: 01/15/17 07:35 Dose: 3 ml Albuterol/Ipratropium (Duoneb Neb) 3 ml HHN Q2HRT PRN PRN Reason: Wheezing Stop: 03/11/17 13:46 Artificial Tears (Artificial Tears Ophth Soln) 1 drop EACH EYE BID [facility] Stop: 03/08/17 08:59 Last Admin: 01/15/17 09:53 Dose: 1 drop Ascorbic Acid (Vitamin C) 500 mg PO DAILY [facility] Stop: 03/08/17 08:59 Last Admin: 01/15/17 09:31 Dose: 500 mg Aspirin (Aspirin Chewable) 81 mg PO DAILY [facility] Stop: 03/13/17 08:59 Last Admin: 01/15/17 09:39 Dose: 81 mg Atorvastatin Calcium (Lipitor) 20 mg PO DAILY [facility] PRN Reason: Protocol Stop: 03/12/17 16:29 Last Admin: 01/15/17 09:31 Dose: 20 mg Atropine Sulfate (Atropine Syringe) 1 mg IVP Q4HR PRN PRN Reason: HR BELOW 40 Stop: 03/09/17 08:32 Last Admin: 01/09/17 01:00 Dose: 1 mg Bisacodyl (Dulcolax 10 Mg Supp) 10 mg RC HS [facility] Stop: 03/14/17 20:59 Last Admin: 01/14/17 21:45 Dose: Not Given Calcium/Vitamin D (Oscal W/Vitamin D) 1 tab PO DAILY [facility] Stop: 03/08/17 08:59 Last Admin: 01/15/17 09:32 Dose: 1 tab Cyanocobalamin (Vitamin B12) 500 mcg PO DAILY [facility] Stop: 03/08/17 08:59 Last Admin: 01/15/17 09:32 Dose: 500 mcg Diltiazem HCl (Cardizem) 20 mg IVP Q4HR PRN PRN Reason: FOR HR>130 Stop: 03/13/17 03:53 Last Admin: 01/12/17 20:50 Dose: 20 mg Docusate Sodium (Colace) 100 mg PO DAILY [facility] Stop: 03/08/17 08:59 Last Admin: 01/15/17 09:32 Dose: 100 mg Piperacillin Sod/Tazobactam (Sod 3.375 gm/ Sodium Chloride) 50 mls @ 100 mls/ hr IV Q6HR [facility] Stop: 03/13/17 08:49 Last Infusion: 01/15/17 06:35 Dose: Infused Vancomycin HCl 1.5 gm/ Sodium (Chloride) 500 mls @ 250 mls/hr IV Q24HR@0900 [facility] Stop: 03/13/17 09:59 Last Infusion: 01/14/17 11:00 Dose: Infused Levetiracetam (Keppra Pb) 500 mg in 100 mls @ 400 mls/hr IV Q12HR@0900,2100 [facility] Stop: 03/13/17 10:29 Last Admin: 01/15/17 09:37 Dose: 400 mls/hr Potassium Chloride/Sodium Chloride (0.45% Ns W/20 Meq Kcl) 1,000 mls @ 50 mls/ hr IV .Q20H [facility] Stop: 03/16/17 08:16 Last Admin: 01/15/17 10:12 Dose: 50 mls/hr Calcium Gluconate 1 gm/ (Dextrose) 110 mls @ 100 mls/hr IV X1 ONE Stop: 01/15/17 11:05 Lorazepam (Ativan) 1 mg IVP Q4HR PRN; Protocol PRN Reason: Seizure Stop: 03/15/17 09:07 Methylprednisolone Sodium Succinate (Solu-Medrol) 60 mg IVP Q12HR [facility] Stop: 03/16/17 08:59 Mineral Oil (Fleet Mineral Oil) 135 ml RC DAILY PRN PRN Reason: CONSTIPATION Stop: 03/13/17 12:59 Last Admin: 01/14/17 10:49 Dose: 135 ml Mineral Oil (Mineral Oil 30 Ml) 30 ml NG Q6HR LIZY Stop: 03/15/17 11:59 Last Admin: 01/15/17 06:06 Dose: Not Given Miscellaneous (Vte Chemical Prophylaxis Screen/ Admission) 1 ea PRN PRN PRN Reason: PROTOCOL Stop: 03/08/17 11:10 Miscellaneous (Vancomycin Iv Per Pharmacy) 1 ea PRN PRN PRN Reason: PROTOCOL Stop: 03/13/17 08:33 Miscellaneous (Zosyn Iv Per Pharmacy) 1 ea PRN PRN PRN Reason: PROTOCOL Stop: 03/13/17 08:34 Miscellaneous (Probiotic Screen) 1 ea PRN PRN PRN Reason: PROTOCOL Stop: 03/13/17 13:54 Polyethylene Glycol (Miralax) 17 gm PO BID LIZY Stop: 03/14/17 16:59 Last Admin: 01/15/17 09:40 Dose: 17 gm Potassium Chloride (Klor-Con) 20 meq PO DAILY LIZY Stop: 03/08/17 08:59 Last Admin: 01/15/17 09:31 Dose: 20 meq General: Alert, No acute distress HEENT: Atraumatic, PERRLA, EOMI Neck: Supple Cardiovascular: Regular rate, Normal S1, Normal S2 Lungs: Other (wheezing,) Abdomen: Bowel sounds, Soft, Other (non tender, no guarding, no rebound) Extremities: no Clubbing, no Cyanosis, no Edema Assessment/Plan - Problem List Patient Problems: All Active Problems Constipation (Acute) K59.00 Dementia (Acute) F03.90 Facial twitching (Acute) G51.4 Hypocalcemia (Acute) E83.51 Hypokalemia (Acute) E87.6 Hypomagnesemia (Acute) E83.42 Hypophosphatemia (Acute) E83.39 Ileus (Acute) K56.7 Leukocytosis (Acute) D72.829 Multiple sclerosis (Acute) G35 Seizure disorder (Acute) G40.909 Sinus bradycardia (Acute) R00.1 - Assessment Assessment: 76 YO MALE WITH CONSTIPATION WITH SOME RELIEF USING LAXATIVES MRCP SHOWED NO DILATATION OF THE CBD BUT THERE WAS A GALLSTONE LFTS ARE NORMAL ERCP DEFERRED FOR LACK OF SYMPTOMS, NO BIOCHEMICAL EVIDENCE OF CHOLESTASIS, AND PT'S COMORBIDITIES 1.CONT LAXATIVES 2.CONSIDER CAROLEE IF GALLSTONES BECOME SYMPTOMATIC
--- NOTE | 2017-01-15 11:07 | Infectious Disease Prog Note ---
Infectious Disease Subjective - Review of Systems Service Date: 01/15/17 Events since last encounter: None. Subjective: There is no new change, there is no fever. Doing better. Infectious Disease Objective - Results Result Diagrams: 01/15/17 04:50 01/15/17 04:50 Recent Labs: Laboratory Last Values WBC 11.4 Th/cmm (4.8-10.8) H 01/15/17 04:50 RBC 3.65 Mil/cmm (3.80-5.80) L 01/15/17 04:50 Hgb 11.7 gm/dL (12-16) L 01/15/17 04:50 Hct 35.1 % (41.0-60) L 01/15/17 04:50 MCV 96.2 fl (80-99) 01/15/17 04:50 MCH 32.2 pg (27.0-31.0) H 01/15/17 04:50 MCHC Differential 33.5 pg (28.0-36.0) 01/15/17 04:50 RDW 14.3 % (11.5-20.0) 01/15/17 04:50 Plt Count 129 Th/cmm (150-400) L 01/15/17 04:50 MPV 8.7 fl 01/15/17 04:50 Band Neutrophils % 2 % (0-10) 01/15/17 04:50 Neutrophils (Manual) 87 % (40-80) H 01/15/17 04:50 Lymphocytes 6 % (20-50) L 01/15/17 04:50 Monocytes 5 % (2-10) 01/15/17 04:50 Eosinophils 0 % (0-5) 01/13/17 04:08 Basophils 0 % (0-3) 01/13/17 04:08 Platelet Estimate ADEQUATE (NORMAL) 01/13/17 04:08 Platelet Morphology NORMAL (NORMAL) 01/13/17 04:08 Anisocytosis 1+ 01/06/17 12:32 RBC Morph Micro Appear NORMAL (NORMAL) 01/13/17 04:08 PT 12.9 SECONDS (9.5-11.5) H 01/06/17 10:50 INR 1.23 (0.5-1.4) 01/06/17 10:50 PTT (Actin FS) 37.0 SECONDS (26.0-38.0) 01/06/17 10:50 Sodium 148 mEq/L (136-145) H 01/15/17 04:50 Potassium 4.1 mEq/L (3.5-5.1) 01/15/17 04:50 Chloride 116 mEq/L (98-107) H 01/15/17 04:50 Carbon Dioxide 29.1 mEq/L (21.0-31.0) 01/15/17 04:50 Anion Gap 7.0 (7.0-16.0) 01/15/17 04:50 BUN 28 mg/dL (7-25) H 01/15/17 04:50 Creatinine 0.7 mg/dL (0.7-1.3) 01/15/17 04:50 Est GFR ( Amer) TNP 01/15/17 04:50 Est GFR (Non-Af Amer) TNP 01/15/17 04:50 BUN/Creatinine Ratio 40.0 01/15/17 04:50 Glucose 299 mg/dL (70-105) H 01/15/17 04:50 POC Glucose 138 MG/DL (70 - 105) H 01/11/17 21:55 Hemoglobin A1c % 5.7 % (4.0-6.0) 01/14/17 09:07 Whole Bld Lactic Acid 0.95 mmol/L (0.60-1.99) 01/06/17 10:53 Calcium 8.1 mg/dL (8.6-10.3) L 01/15/17 04:50 Phosphorus 2.2 mg/dL (2.5-5.0) L 01/15/17 04:50 Magnesium 2.3 mg/dL (1.9-2.7) 01/15/17 04:50 Total Bilirubin 0.4 mg/dL (0.3-1.0) 01/15/17 04:50 AST 12 U/L (13-39) L 01/15/17 04:50 ALT 16 U/L (7-52) 01/15/17 04:50 Alkaline Phosphatase 54 U/L (34-104) 01/15/17 04:50 Creatine Kinase 52 U/L (30-223) 01/06/17 10:50 Total Protein 4.9 gm/dL (6.0-8.3) L 01/15/17 04:50 Albumin 2.6 gm/dL (4.2-5.5) L 01/15/17 04:50 Globulin 2.3 gm/dL 01/15/17 04:50 Albumin/Globulin Ratio 1.1 (1.0-1.8) 01/15/17 04:50 Triglycerides 343 mg/dL (<150) H 01/11/17 09:15 Cholesterol 163 mg/dL (<200) 01/11/17 09:15 LDL Cholesterol Direct 82 mg/dL (75-193) 01/11/17 09:15 HDL Cholesterol 46 mg/dL (23-92) 01/11/17 09:15 TSH 0.39 uIU/ml (0.34-5.60) 01/06/17 11:59 PTH Intact 31 pg/mL (15-65) 01/06/17 12:09 Urine Source CATH 01/11/17 16:00 Urine Color YELLOW 01/11/17 16:00 Urine Clarity CLOUDY (CLEAR) 01/11/17 16:00 Urine pH 5.5 (4.6 - 8.0) 01/11/17 16:00 Ur Specific [place] >= 1.030 (1.005-1.030) 01/11/17 16:00 Urine Protein 100 mg/dL (NEGATIVE) H 01/11/17 16:00 Urine Glucose (UA) 100 mg/dL (NEGATIVE) H 01/11/17 16:00 Urine Ketones 15 mg/dL (NEGATIVE) H 01/11/17 16:00 Urine Blood MODERATE (NEGATIVE) H 01/11/17 16:00 Urine Nitrate NEGATIVE (NEGATIVE) 01/11/17 16:00 Urine Bilirubin SMALL (NEGATIVE) H 01/11/17 16:00 Urine Urobilinogen 0.2 E.U./dL (0.2 - 1.0) 01/11/17 16:00 Ur Leukocyte Esterase SMALL (NEGATIVE) H 01/11/17 16:00 Urine RBC 5-10 /hpf (0-5) H 01/11/17 16:00 Urine WBC 50-100 /hpf (0-5) H 01/11/17 16:00 Ur Epithelial Cells FEW /lpf (FEW) 01/11/17 16:00 Amorphous Sediment MODERATE URATES (NONE SEEN) 01/11/17 16:00 Urine Bacteria MODERATE /hpf (NONE SEEN) 01/11/17 16:00 Fine Granular Casts 0-2 /lpf (NONE SEEN) H 01/11/17 16:00 Urine Yeast FEW /hpf (NONE SEEN) H 01/11/17 16:00 Vancomycin Trough 7.3 ug/mL (10-20) L 01/14/17 08:05 - Physical Exam Vitals and I&O: Vital Signs Temp 99 F 01/15/17 04:00 Pulse 52 01/15/17 07:50 Resp 22 01/15/17 07:50 BP 130/74 01/15/17 04:00 Pulse Ox 96 01/15/17 07:50 Intake & Output 01/14/17 01/15/17 01/15/17 18:59 06:59 18:59 Intake Total 1630 1920 Output Total 420 1000 Balance 1210 920 Weight (lbs) 79.01 kg 80.694 kg Intake: Intake, IV Amount 700 1220 Levetiracetam 500mg/100mL 100 100 500 mg In 100 ml @ 400 mls/hr IV Q12HR@0900,2100 [facility] Rx#:[id number] Piperacillin Sodium/ 100 100 Tazobact 3.375 gm In Sodium Chloride 0.9% 50 ml @ 100 mls/hr IV Q6HR [facility] Rx#:[id number] Potassium Chloride 40 meq 1020 In Dextrose 5% 1,000 ml @ 75 mls/hr IV .[id number] [facility] Rx#:[id number] Vancomycin HCl 1.5 gm In 500 Sodium Chloride 0.9% 500 ml @ 250 mls/hr IV Q24HR@ 0900 [facility] Rx#:[id number] Tube Feeding 450 700 Other 480 Output: Urine 420 1000 Other: # Bowel Movements 2 1 Stool Characteristics Liquid Liquid Brown Active Medications: Current Medications Acetaminophen (Tylenol 650mg Supp) 650 mg RC Q4H PRN PRN Reason: Fever > 101 Stop: 03/10/17 13:04 Last Admin: 01/12/17 03:37 Dose: 650 mg Albuterol/Ipratropium (Duoneb Neb) 3 ml HHN Q4HRT [facility] Stop: 03/11/17 14:59 Last Admin: 01/15/17 07:35 Dose: 3 ml Albuterol/Ipratropium (Duoneb Neb) 3 ml HHN Q2HRT PRN PRN Reason: Wheezing Stop: 03/11/17 13:46 Artificial Tears (Artificial Tears Ophth Soln) 1 drop EACH EYE BID [facility] Stop: 03/08/17 08:59 Last Admin: 01/15/17 09:53 Dose: 1 drop Ascorbic Acid (Vitamin C) 500 mg PO DAILY [facility] Stop: 03/08/17 08:59 Last Admin: 01/15/17 09:31 Dose: 500 mg Aspirin (Aspirin Chewable) 81 mg PO DAILY [facility] Stop: 03/13/17 08:59 Last Admin: 01/15/17 09:39 Dose: 81 mg Atorvastatin Calcium (Lipitor) 20 mg PO DAILY [facility] PRN Reason: Protocol Stop: 03/12/17 16:29 Last Admin: 01/15/17 09:31 Dose: 20 mg Atropine Sulfate (Atropine Syringe) 1 mg IVP Q4HR PRN PRN Reason: HR BELOW 40 Stop: 03/09/17 08:32 Last Admin: 01/09/17 01:00 Dose: 1 mg Bisacodyl (Dulcolax 10 Mg Supp) 10 mg RC HS [facility] Stop: 03/14/17 20:59 Last Admin: 01/14/17 21:45 Dose: Not Given Calcium/Vitamin D (Oscal W/Vitamin D) 1 tab PO DAILY [facility] Stop: 03/08/17 08:59 Last Admin: 01/15/17 09:32 Dose: 1 tab Cyanocobalamin (Vitamin B12) 500 mcg PO DAILY [facility] Stop: 03/08/17 08:59 Last Admin: 01/15/17 09:32 Dose: 500 mcg Diltiazem HCl (Cardizem) 20 mg IVP Q4HR PRN PRN Reason: FOR HR>130 Stop: 03/13/17 03:53 Last Admin: 01/12/17 20:50 Dose: 20 mg Docusate Sodium (Colace) 100 mg PO DAILY [facility] Stop: 03/08/17 08:59 Last Admin: 01/15/17 09:32 Dose: 100 mg Piperacillin Sod/Tazobactam (Sod 3.375 gm/ Sodium Chloride) 50 mls @ 100 mls/ hr IV Q6HR [facility] Stop: 03/13/17 08:49 Last Infusion: 01/15/17 06:35 Dose: Infused Vancomycin HCl 1.5 gm/ Sodium (Chloride) 500 mls @ 250 mls/hr IV Q24HR@0900 [facility] Stop: 03/13/17 09:59 Last Infusion: 01/14/17 11:00 Dose: Infused Levetiracetam (Keppra Pb) 500 mg in 100 mls @ 400 mls/hr IV Q12HR@0900,2100 [facility] Stop: 03/13/17 10:29 Last Admin: 01/15/17 09:37 Dose: 400 mls/hr Potassium Chloride/Sodium Chloride (0.45% Ns W/20 Meq Kcl) 1,000 mls @ 50 mls/ hr IV .Q20H [facility] Stop: 03/16/17 08:16 Last Admin: 01/15/17 10:12 Dose: 50 mls/hr Lorazepam (Ativan) 1 mg IVP Q4HR PRN; Protocol PRN Reason: Seizure Stop: 03/15/17 09:07 Methylprednisolone Sodium Succinate (Solu-Medrol) 60 mg IVP Q12HR [facility] Stop: 03/16/17 08:59 Mineral Oil (Fleet Mineral Oil) 135 ml RC DAILY PRN PRN Reason: CONSTIPATION Stop: 03/13/17 12:59 Last Admin: 01/14/17 10:49 Dose: 135 ml Mineral Oil (Mineral Oil 30 Ml) 30 ml NG Q6HR [facility] Stop: 03/15/17 11:59 Last Admin: 01/15/17 06:06 Dose: Not Given Miscellaneous (Vte Chemical Prophylaxis Screen/ Admission) 1 ea PRN PRN PRN Reason: PROTOCOL Stop: 03/08/17 11:10 Miscellaneous (Vancomycin Iv Per Pharmacy) 1 ea PRN PRN PRN Reason: PROTOCOL Stop: 03/13/17 08:33 Miscellaneous (Zosyn Iv Per Pharmacy) 1 ea PRN PRN PRN Reason: PROTOCOL Stop: 03/13/17 08:34 Miscellaneous (Probiotic Screen) 1 ea PRN PRN PRN Reason: PROTOCOL Stop: 03/13/17 13:54 Polyethylene Glycol (Miralax) 17 gm PO BID [facility] Stop: 03/14/17 16:59 Last Admin: 01/15/17 09:40 Dose: 17 gm Potassium Chloride (Klor-Con) 20 meq PO DAILY [facility] Stop: 03/08/17 08:59 Last Admin: 01/15/17 09:31 Dose: 20 meq General: no acute distress, cachectic HEENT: atraumatic, normocephalic, PERRLA, EOMI, moist mucous membrane Neck: supple, no thyromegaly Cardiovascular: S1S2, regular Lungs: clear to auscultation bilaterally, clear to percussion Abdomen: soft, no tender, no distended, no mass Extremities: no cyanosis, no clubbing Neurological: awake, alert Skin: intact Infectious Disease Assmt/Plan - Problem List Patient Problems: All Active Problems Constipation (Acute) K59.00 Dementia (Acute) F03.90 Facial twitching (Acute) G51.4 Hypocalcemia (Acute) E83.51 Hypokalemia (Acute) E87.6 Hypomagnesemia (Acute) E83.42 Hypophosphatemia (Acute) E83.39 Ileus (Acute) K56.7 Leukocytosis (Acute) D72.829 Multiple sclerosis (Acute) G35 Seizure disorder (Acute) G40.909 Sinus bradycardia (Acute) R00.1 - Assessment Assessment: 1. Leukocytosis and low-grade fever, sepsis. Improving. 2. Urinary tract infection. 3. Possible common bile duct obstruction distal end, cholelithiasis. 4. Fecal impaction. 5. Supraventricular tachycardia. 6. Multiple sclerosis. 7. Dementia. - Plan Plan: Continue Zosyn. DC vanco. Repeat UA. Nutritional Asmnt/Malnutr-PDOC - Dietary Evaluation Malnutrition Findings (Please click <Entered> for more info): Nutritional Asmnt/Malnutrition Start: 01/08/17 12: 55 Text: Status: Complete Freq: Document 01/08/17 12:56 GSUN (Rec: 01/08/17 13:16 SOLOMON [id number]) Nutritional Asmnt/Malnutrition Patient General Information Nutritional Screening Consult Diagnosis ALOC, acute MS exacerbation Pertinent Medical Hx/Surgical Hx Dementia, multiple sclerosis, constipation Subjective Information 76 year old male from SNF. RD consult for laura Huntley. Per RN notes, facial twitching on adm, currently NPO with swallow eval pending. Pt was awake during visit, followed RD with eyes, did not provide any information. Mild wasting to chest noted, loose skin to arms. Current Diet Order/ Nutrition Support NPO Pertinent Medications Vitamin C, Oscal W/Vitamin D, Vitamin B12, D5-0.45ns, Dulcolax, Colace Pertinent Labs 01/08: reviewed. Glucose 148H Nutritional Hx/Data Height 1.85 m Height (Calculated Centimeters) 185.4 Current Weight (lbs) 69.49 kg Weight (Calculated Kilograms) 69.5 Weight (Calculated Grams) 81238.4 [place] Body Weight 184 Weight Status Approriate GI Symptoms Usual diet at home [place] [facility]: pureed, large portion lunch and dinner, 4oz house supplement Skin Integrity/Comment: Audi 12. Pressure area r foot and upper back, abrasion l knee and r leg Estimated Nutritional Goals BEE in Kcals: Using Current wt Calories/Kcals/Kg IBW 184lb/83.6kg with consideration skin integrity and BMI Kcals Calculated 0-2508kcal (25-30kcal/kg) Protein: Using Current wt Protein Calculated 84-109g (1-1.3g/kg) Fluid: ml 0-2508ml (1ml/kcal) Nutritional Problem 2. Problem Problem Increased prot needs related to Etiology skin integrity aeb Signs/Symptoms: health sanitarian: pressure area to right foot and upper back, abrasion ro left knee and right lower leg 1. 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 Recommend regular diet, diet texture per swallow eval (pending). SNF order pureed. Expected Outcomes/Goals Expected Outcomes/Goals 1. PO intake to meet at least 75% of estimated nutritional needs.
[2017-01-15 16:06] LABS: URINE BILIRUBIN NEGATIVE (NEGATIVE); URINE BLOOD MODERATE (NEGATIVE); URINE GLUCOSE (UA) >=1000 mg/dL (NEGATIVE); URINE KETONE NEGATIVE (NEGATIVE); URINE PROTEIN NEGATIVE (NEGATIVE); URINE UROBILINOGEN 0.2 E.U./dL (0.2 - 1.0)
[2017-01-15 16:12] LABS: URINE BACTERIA FEW /hpf (NONE SEEN); URINE COLOR YELLOW; URINE EPITHELIAL CELLS FEW /lpf (FEW)
[2017-01-15] MEDS ORDERED: INSULIN ASPART SLIDING SCALE 100 UNITS/ML UNIT SUBQ SCH (16:30)
[2017-01-15] MEDS: INSULIN ASPART SLIDING SCALE 100 UNITS/ML UNIT SUBQ SCH ×2 (17:59→21:26)
[2017-01-16] MEDS: Albuterol/Ipratropium Neb 3 ML AERS HHN SCH ×6 (03:03→22:26)
[2017-01-16 05:21] LABS: HEMATOCRIT 35.1 % (41.0-60); HEMOGLOBIN 11.9 gm/dL (12-16); MEAN CELL VOLUME 95.7 fl (80-99); MEAN CORPUSCULAR HEMOGLOBIN 32.3 pg (27.0-31.0); MEAN CORPUSCULAR HGB CONC 33.8 pg (28.0-36.0); MEAN PLATELET VOLUME 8.6 fl; PLATELET COUNT 131 Th/cmm (150-400); RED BLOOD COUNT 3.67 Mil/cmm (3.80-5.80); RED CELL DISTRIBUTION WIDTH 13.9 % (11.5-20.0)
[2017-01-16 05:29] LABS: WHITE BLOOD COUNT 13.9 Th/cmm (4.8-10.8)
[2017-01-16 05:51] LABS: ALB/GLOB RATIO 1.1 (1.0-1.8); ALKALINE PHOSPHATASE 53 U/L (34-104); ANION GAP 7.9 (7.0-16.0); BILIRUBIN,TOTAL 0.5 mg/dL (0.3-1.0); BUN - UREA NITROGEN 23 mg/dL (7-25); BUN/CREATININE RATIO 32.9; CALCIUM SERUM 8.3 mg/dL (8.6-10.3); CARBON DIOXIDE 29.3 mEq/L (21.0-31.0); CHLORIDE 111 mEq/L (98-107); CREATININE - SERUM 0.7 mg/dL (0.7-1.3); GLUCOSE 275 mg/dL (70-105); PHOSPHOROUS 2.2 mg/dL (2.5-5.0); POTASSIUM SERUM 4.2 mEq/L (3.5-5.1); SGOT 10 U/L (13-39); SGPT/ALT 15 U/L (7-52); SODIUM SERUM 144 mEq/L (136-145)
[2017-01-16 05:57] LABS: BAND NEUTROPHILE 8 % (0-10); NEUTROPHILS 82 % (40-80); TOTAL CELLS COUNTED 100
[2017-01-16] MEDS: INSULIN ASPART SLIDING SCALE 100 UNITS/ML UNIT SUBQ SCH ×4 (06:37→21:45)
--- NOTE | 2017-01-16 07:59 | GI Progress Note ---
Subjective - Review of Systems Subjective: STILL HAS BM NO NEW COMPLAINTS Objective - Results Result Diagrams: 01/16/17 05:00 01/16/17 05:00 Recent Labs: Laboratory Last Values WBC 13.9 Th/cmm (4.8-10.8) H D 01/16/17 05:00 RBC 3.67 Mil/cmm (3.80-5.80) L 01/16/17 05:00 Hgb 11.9 gm/dL (12-16) L 01/16/17 05:00 Hct 35.1 % (41.0-60) L 01/16/17 05:00 MCV 95.7 fl (80-99) 01/16/17 05:00 MCH 32.3 pg (27.0-31.0) H 01/16/17 05:00 MCHC Differential 33.8 pg (28.0-36.0) 01/16/17 05:00 RDW 13.9 % (11.5-20.0) 01/16/17 05:00 Plt Count 131 Th/cmm (150-400) L 01/16/17 05:00 MPV 8.6 fl 01/16/17 05:00 Band Neutrophils % 8 % (0-10) 01/16/17 05:00 Neutrophils (Manual) 82 % (40-80) H 01/16/17 05:00 Lymphocytes 6 % (20-50) L 01/16/17 05:00 Monocytes 4 % (2-10) 01/16/17 05:00 Eosinophils 0 % (0-5) 01/13/17 04:08 Basophils 0 % (0-3) 01/13/17 04:08 Platelet Estimate ADEQUATE (NORMAL) 01/13/17 04:08 Platelet Morphology NORMAL (NORMAL) 01/13/17 04:08 Anisocytosis 1+ 01/06/17 12:32 RBC Morph Micro Appear NORMAL (NORMAL) 01/13/17 04:08 PT 12.9 SECONDS (9.5-11.5) H 01/06/17 10:50 INR 1.23 (0.5-1.4) 01/06/17 10:50 PTT (Actin FS) 37.0 SECONDS (26.0-38.0) 01/06/17 10:50 Sodium 144 mEq/L (136-145) 01/16/17 05:00 Potassium 4.2 mEq/L (3.5-5.1) 01/16/17 05:00 Chloride 111 mEq/L (98-107) H 01/16/17 05:00 Carbon Dioxide 29.3 mEq/L (21.0-31.0) 01/16/17 05:00 Anion Gap 7.9 (7.0-16.0) 01/16/17 05:00 BUN 23 mg/dL (7-25) 01/16/17 05:00 Creatinine 0.7 mg/dL (0.7-1.3) 01/16/17 05:00 Est GFR ( Amer) TNP 01/16/17 05:00 Est GFR (Non-Af Amer) TNP 01/16/17 05:00 BUN/Creatinine Ratio 32.9 01/16/17 05:00 Glucose 275 mg/dL (70-105) H 01/16/17 05:00 POC Glucose 243 MG/DL (70 - 105) H 01/16/17 06:28 Hemoglobin A1c % 5.7 % (4.0-6.0) 01/14/17 09:07 Whole Bld Lactic Acid 0.95 mmol/L (0.60-1.99) 01/06/17 10:53 Calcium 8.3 mg/dL (8.6-10.3) L 01/16/17 05:00 Phosphorus 2.2 mg/dL (2.5-5.0) L 01/16/17 05:00 Magnesium 2.3 mg/dL (1.9-2.7) 01/15/17 04:50 Total Bilirubin 0.5 mg/dL (0.3-1.0) 01/16/17 05:00 AST 10 U/L (13-39) L 01/16/17 05:00 ALT 15 U/L (7-52) 01/16/17 05:00 Alkaline Phosphatase 53 U/L (34-104) 01/16/17 05:00 Creatine Kinase 52 U/L (30-223) 01/06/17 10:50 Total Protein 4.8 gm/dL (6.0-8.3) L 01/16/17 05:00 Albumin 2.5 gm/dL (4.2-5.5) L 01/16/17 05:00 Globulin 2.3 gm/dL 01/16/17 05:00 Albumin/Globulin Ratio 1.1 (1.0-1.8) 01/16/17 05:00 Triglycerides 343 mg/dL (<150) H 01/11/17 09:15 Cholesterol 163 mg/dL (<200) 01/11/17 09:15 LDL Cholesterol Direct 82 mg/dL (75-193) 01/11/17 09:15 HDL Cholesterol 46 mg/dL (23-92) 01/11/17 09:15 TSH 0.39 uIU/ml (0.34-5.60) 01/06/17 11:59 PTH Intact 31 pg/mL (15-65) 01/06/17 12:09 Urine Source [place] 01/15/17 14:00 Urine Color YELLOW 01/15/17 14:00 Urine Clarity SLIGHT CLOUDY (CLEAR) 01/15/17 14:00 Urine pH 6.0 (4.6 - 8.0) 01/15/17 14:00 Ur Specific [place] 1.020 (1.005-1.030) 01/15/17 14:00 Urine Protein NEGATIVE mg/dL (NEGATIVE) 01/15/17 14:00 Urine Glucose (UA) >=1000 mg/dL (NEGATIVE) H 01/15/17 14:00 Urine Ketones NEGATIVE mg/dL (NEGATIVE) 01/15/17 14:00 Urine Blood MODERATE (NEGATIVE) H 01/15/17 14:00 Urine Nitrate NEGATIVE (NEGATIVE) 01/15/17 14:00 Urine Bilirubin NEGATIVE (NEGATIVE) 01/15/17 14:00 Urine Urobilinogen 0.2 E.U./dL (0.2 - 1.0) 01/15/17 14:00 Ur Leukocyte Esterase NEGATIVE (NEGATIVE) 01/15/17 14:00 Urine RBC 10-25 /hpf (0-5) H 01/15/17 14:00 Urine WBC 2-5 /hpf (0-5) H 01/15/17 14:00 Ur Epithelial Cells FEW /lpf (FEW) 01/15/17 14:00 Amorphous Sediment MODERATE URATES (NONE SEEN) 01/11/17 16:00 Urine Bacteria FEW /hpf (NONE SEEN) 01/15/17 14:00 Fine Granular Casts 0-2 /lpf (NONE SEEN) H 01/11/17 16:00 Urine Mucus FEW /lpf (FEW) 01/15/17 14:00 Urine Yeast FEW /hpf (NONE SEEN) H 01/11/17 16:00 Vancomycin Trough 7.3 ug/mL (10-20) L 01/14/17 08:05 - Physical Exam Vitals and I&O: Vital Signs Temp 98.6 F 01/16/17 04:00 Pulse 58 01/16/17 07:32 Resp 18 01/16/17 07:33 BP 113/66 01/16/17 04:00 Pulse Ox 96 01/16/17 07:32 Intake & Output 01/15/17 01/16/17 01/16/17 18:59 06:59 18:59 Intake Total 1200 950 Output Total 950 850 Balance 250 100 Weight (lbs) 80.694 kg 68.674 kg Intake: Intake, IV Amount 200 150 Levetiracetam 500mg/100mL 100 100 500 mg In 100 ml @ 400 mls/hr IV Q12HR@0900,2100 [facility] Rx#:[id number] Piperacillin Sodium/ 100 50 Tazobact 3.375 gm In Sodium Chloride 0.9% 50 ml @ 100 mls/hr IV Q6HR [facility] Rx#:[id number] Tube Feeding 600 600 Other 400 200 Output: Urine 950 850 Other: # Bowel Movements 2 1 Stool Characteristics Liquid Brown Active Medications: Current Medications Acetaminophen (Tylenol 650mg Supp) 650 mg RC Q4H PRN PRN Reason: Fever > 101 Stop: 03/10/17 13:04 Last Admin: 01/12/17 03:37 Dose: 650 mg Albuterol/Ipratropium (Duoneb Neb) 3 ml HHN Q4HRT [facility] Stop: 03/11/17 14:59 Last Admin: 01/16/17 07:28 Dose: 3 ml Albuterol/Ipratropium (Duoneb Neb) 3 ml HHN Q2HRT PRN PRN Reason: Wheezing Stop: 03/11/17 13:46 Artificial Tears (Artificial Tears Ophth Soln) 1 drop EACH EYE BID [facility] Stop: 03/08/17 08:59 Last Admin: 01/15/17 17:29 Dose: 1 drop Ascorbic Acid (Vitamin C) 500 mg PO DAILY [facility] Stop: 03/08/17 08:59 Last Admin: 01/15/17 09:31 Dose: 500 mg Aspirin (Aspirin Chewable) 81 mg PO DAILY [facility] Stop: 03/13/17 08:59 Last Admin: 01/15/17 09:39 Dose: 81 mg Atorvastatin Calcium (Lipitor) 20 mg PO DAILY [facility] PRN Reason: Protocol Stop: 03/12/17 16:29 Last Admin: 01/15/17 09:31 Dose: 20 mg Atropine Sulfate (Atropine Syringe) 1 mg IVP Q4HR PRN PRN Reason: HR BELOW 40 Stop: 03/09/17 08:32 Last Admin: 01/09/17 01:00 Dose: 1 mg Bisacodyl (Dulcolax 10 Mg Supp) 10 mg RC HS [facility] Stop: 03/14/17 20:59 Last Admin: 01/15/17 21:20 Dose: Not Given Calcium/Vitamin D (Oscal W/Vitamin D) 1 tab PO DAILY [facility] Stop: 03/08/17 08:59 Last Admin: 01/15/17 09:32 Dose: 1 tab Cyanocobalamin (Vitamin B12) 500 mcg PO DAILY [facility] Stop: 03/08/17 08:59 Last Admin: 01/15/17 09:32 Dose: 500 mcg Diltiazem HCl (Cardizem) 20 mg IVP Q4HR PRN PRN Reason: FOR HR>130 Stop: 03/13/17 03:53 Last Admin: 01/12/17 20:50 Dose: 20 mg Docusate Sodium (Colace) 100 mg PO DAILY [facility] Stop: 03/08/17 08:59 Last Admin: 01/15/17 09:32 Dose: 100 mg Piperacillin Sod/Tazobactam (Sod 3.375 gm/ Sodium Chloride) 50 mls @ 100 mls/ hr IV Q6HR [facility] Stop: 03/13/17 08:49 Last Admin: 01/16/17 06:25 Dose: 100 mls/hr Levetiracetam (Keppra Pb) 500 mg in 100 mls @ 400 mls/hr IV Q12HR@0900,2100 [facility] Stop: 03/13/17 10:29 Last Infusion: 01/15/17 21:36 Dose: Infused Potassium Chloride/Sodium Chloride (0.45% Ns W/20 Meq Kcl) 1,000 mls @ 50 mls/ hr IV .Q20H [facility] Stop: 03/16/17 08:16 Last Admin: 01/15/17 10:12 Dose: 50 mls/hr Insulin Aspart (Novolog Insulin Sliding Scale) 2 - 12 units SUBQ ACHS [facility] PRN Reason: Protocol Stop: 03/16/17 20:59 Last Admin: 01/16/17 06:37 Dose: 4 units Lorazepam (Ativan) 1 mg IVP Q4HR PRN; Protocol PRN Reason: Seizure Stop: 03/15/17 09:07 Methylprednisolone Sodium Succinate (Solu-Medrol) 60 mg IVP Q12HR [facility] Stop: 03/16/17 08:59 Last Admin: 01/15/17 21:21 Dose: 60 mg Mineral Oil (Fleet Mineral Oil) 135 ml RC DAILY PRN PRN Reason: CONSTIPATION Stop: 03/13/17 12:59 Last Admin: 01/14/17 10:49 Dose: 135 ml Mineral Oil (Mineral Oil 30 Ml) 30 ml NG Q6HR [facility] Stop: 03/15/17 11:59 Last Admin: 01/16/17 06:25 Dose: 30 ml Miscellaneous (Vte Chemical Prophylaxis Screen/ Admission) 1 ea PRN PRN PRN Reason: PROTOCOL Stop: 03/08/17 11:10 Miscellaneous (Zosyn Iv Per Pharmacy) 1 ea PRN PRN PRN Reason: PROTOCOL Stop: 03/13/17 08:34 Miscellaneous (Probiotic Screen) 1 ea PRN PRN PRN Reason: PROTOCOL Stop: 03/13/17 13:54 Polyethylene Glycol (Miralax) 17 gm PO BID [facility] Stop: 03/14/17 16:59 Last Admin: 01/15/17 17:29 Dose: 17 gm Potassium Chloride (Klor-Con) 20 meq PO DAILY [facility] Stop: 03/08/17 08:59 Last Admin: 01/15/17 09:31 Dose: 20 meq General: Alert, No acute distress HEENT: Atraumatic, PERRLA, EOMI Neck: Supple Cardiovascular: Regular rate, Normal S1, Normal S2 Lungs: Other (wheezing,) Abdomen: Bowel sounds, Soft, Other (non tender, no guarding, no rebound) Extremities: no Clubbing, no Cyanosis, no Edema Assessment/Plan - Problem List Patient Problems: All Active Problems Constipation (Acute) K59.00 Dementia (Acute) F03.90 Facial twitching (Acute) G51.4 Hypocalcemia (Acute) E83.51 Hypokalemia (Acute) E87.6 Hypomagnesemia (Acute) E83.42 Hypophosphatemia (Acute) E83.39 Ileus (Acute) K56.7 Leukocytosis (Acute) D72.829 Multiple sclerosis (Acute) G35 Seizure disorder (Acute) G40.909 Sinus bradycardia (Acute) R00.1 - Assessment Assessment: 76 YO MALE WITH CONSTIPATION RELIEVED USING LAXATIVES MRCP SHOWED NO DILATATION OF THE CBD BUT THERE WAS A GALLSTONE LFTS ARE NORMAL ERCP DEFERRED FOR LACK OF SYMPTOMS, NO BIOCHEMICAL EVIDENCE OF CHOLESTASIS, AND PT'S COMORBIDITIES 1.CONT LAXATIVES 2.CONSIDER CAROLEE IF GALLSTONES BECOME SYMPTOMATIC 3.SWALLOW EVAL PENDING
--- NOTE | 2017-01-16 08:11 | Diagnostic Imaging Report ---
KUB single view HISTORY: Fecal impaction. COMPARISON: [facility] 01/13/2017 FINDINGS: Again seen is marked distal fecal impaction. Multiple markedly distended proximal loops of bowel are noted. Degenerative changes of the spine are noted. IMPRESSION: Persistent marked distal fecal impaction. Again seen are multiple distended loops of small and large bowel proximally likely secondary to patient's fecal impaction. Overall no significant change since previous KUB on 01/13/2017.
--- NOTE | 2017-01-16 08:18 | General Progress Note ---
Subjective - Review of Systems Service Date: 01/16/17 Subjective: Patient is now having BM's. For swallow evaluation. Patient appears better. slightly congested. Objective - Results Result Diagrams: 01/16/17 05:00 01/16/17 05:00 Recent Labs: Laboratory Last Values WBC 13.9 Th/cmm (4.8-10.8) H D 01/16/17 05:00 RBC 3.67 Mil/cmm (3.80-5.80) L 01/16/17 05:00 Hgb 11.9 gm/dL (12-16) L 01/16/17 05:00 Hct 35.1 % (41.0-60) L 01/16/17 05:00 MCV 95.7 fl (80-99) 01/16/17 05:00 MCH 32.3 pg (27.0-31.0) H 01/16/17 05:00 MCHC Differential 33.8 pg (28.0-36.0) 01/16/17 05:00 RDW 13.9 % (11.5-20.0) 01/16/17 05:00 Plt Count 131 Th/cmm (150-400) L 01/16/17 05:00 MPV 8.6 fl 01/16/17 05:00 Band Neutrophils % 8 % (0-10) 01/16/17 05:00 Neutrophils (Manual) 82 % (40-80) H 01/16/17 05:00 Lymphocytes 6 % (20-50) L 01/16/17 05:00 Monocytes 4 % (2-10) 01/16/17 05:00 Eosinophils 0 % (0-5) 01/13/17 04:08 Basophils 0 % (0-3) 01/13/17 04:08 Platelet Estimate ADEQUATE (NORMAL) 01/13/17 04:08 Platelet Morphology NORMAL (NORMAL) 01/13/17 04:08 Anisocytosis 1+ 01/06/17 12:32 RBC Morph Micro Appear NORMAL (NORMAL) 01/13/17 04:08 PT 12.9 SECONDS (9.5-11.5) H 01/06/17 10:50 INR 1.23 (0.5-1.4) 01/06/17 10:50 PTT (Actin FS) 37.0 SECONDS (26.0-38.0) 01/06/17 10:50 Sodium 144 mEq/L (136-145) 01/16/17 05:00 Potassium 4.2 mEq/L (3.5-5.1) 01/16/17 05:00 Chloride 111 mEq/L (98-107) H 01/16/17 05:00 Carbon Dioxide 29.3 mEq/L (21.0-31.0) 01/16/17 05:00 Anion Gap 7.9 (7.0-16.0) 01/16/17 05:00 BUN 23 mg/dL (7-25) 01/16/17 05:00 Creatinine 0.7 mg/dL (0.7-1.3) 01/16/17 05:00 Est GFR ( Amer) TNP 01/16/17 05:00 Est GFR (Non-Af Amer) TNP 01/16/17 05:00 BUN/Creatinine Ratio 32.9 01/16/17 05:00 Glucose 275 mg/dL (70-105) H 01/16/17 05:00 POC Glucose 243 MG/DL (70 - 105) H 01/16/17 06:28 Hemoglobin A1c % 5.7 % (4.0-6.0) 01/14/17 09:07 Whole Bld Lactic Acid 0.95 mmol/L (0.60-1.99) 01/06/17 10:53 Calcium 8.3 mg/dL (8.6-10.3) L 01/16/17 05:00 Phosphorus 2.2 mg/dL (2.5-5.0) L 01/16/17 05:00 Magnesium 2.3 mg/dL (1.9-2.7) 01/15/17 04:50 Total Bilirubin 0.5 mg/dL (0.3-1.0) 01/16/17 05:00 AST 10 U/L (13-39) L 01/16/17 05:00 ALT 15 U/L (7-52) 01/16/17 05:00 Alkaline Phosphatase 53 U/L (34-104) 01/16/17 05:00 Creatine Kinase 52 U/L (30-223) 01/06/17 10:50 Total Protein 4.8 gm/dL (6.0-8.3) L 01/16/17 05:00 Albumin 2.5 gm/dL (4.2-5.5) L 01/16/17 05:00 Globulin 2.3 gm/dL 01/16/17 05:00 Albumin/Globulin Ratio 1.1 (1.0-1.8) 01/16/17 05:00 Triglycerides 343 mg/dL (<150) H 01/11/17 09:15 Cholesterol 163 mg/dL (<200) 01/11/17 09:15 LDL Cholesterol Direct 82 mg/dL (75-193) 01/11/17 09:15 HDL Cholesterol 46 mg/dL (23-92) 01/11/17 09:15 TSH 0.39 uIU/ml (0.34-5.60) 01/06/17 11:59 PTH Intact 31 pg/mL (15-65) 01/06/17 12:09 Urine Source RAE PORT 01/15/17 14:00 Urine Color YELLOW 01/15/17 14:00 Urine Clarity SLIGHT CLOUDY (CLEAR) 01/15/17 14:00 Urine pH 6.0 (4.6 - 8.0) 01/15/17 14:00 Ur Specific [place] 1.020 (1.005-1.030) 01/15/17 14:00 Urine Protein NEGATIVE mg/dL (NEGATIVE) 01/15/17 14:00 Urine Glucose (UA) >=1000 mg/dL (NEGATIVE) H 01/15/17 14:00 Urine Ketones NEGATIVE mg/dL (NEGATIVE) 01/15/17 14:00 Urine Blood MODERATE (NEGATIVE) H 01/15/17 14:00 Urine Nitrate NEGATIVE (NEGATIVE) 01/15/17 14:00 Urine Bilirubin NEGATIVE (NEGATIVE) 01/15/17 14:00 Urine Urobilinogen 0.2 E.U./dL (0.2 - 1.0) 01/15/17 14:00 Ur Leukocyte Esterase NEGATIVE (NEGATIVE) 01/15/17 14:00 Urine RBC 10-25 /hpf (0-5) H 01/15/17 14:00 Urine WBC 2-5 /hpf (0-5) H 01/15/17 14:00 Ur Epithelial Cells FEW /lpf (FEW) 01/15/17 14:00 Amorphous Sediment MODERATE URATES (NONE SEEN) 01/11/17 16:00 Urine Bacteria FEW /hpf (NONE SEEN) 01/15/17 14:00 Fine Granular Casts 0-2 /lpf (NONE SEEN) H 01/11/17 16:00 Urine Mucus FEW /lpf (FEW) 01/15/17 14:00 Urine Yeast FEW /hpf (NONE SEEN) H 01/11/17 16:00 Vancomycin Trough 7.3 ug/mL (10-20) L 01/14/17 08:05 - Physical Exam Vitals and I&O: Vital Signs Temp 98.7 F 01/16/17 08:03 Pulse 88 01/16/17 08:03 Resp 12 01/16/17 08:03 BP 90/57 01/16/17 08:03 Pulse Ox 95 01/16/17 08:03 Intake & Output 01/15/17 01/16/17 01/16/17 18:59 06:59 18:59 Intake Total 1200 950 Output Total 950 850 Balance 250 100 Weight (lbs) 80.694 kg 68.674 kg Intake: Intake, IV Amount 200 150 Levetiracetam 500mg/100mL 100 100 500 mg In 100 ml @ 400 mls/hr IV Q12HR@0900,2100 [facility] Rx#:[id number] Piperacillin Sodium/ 100 50 Tazobact 3.375 gm In Sodium Chloride 0.9% 50 ml @ 100 mls/hr IV Q6HR [facility] Rx#:[id number] Tube Feeding 600 600 Other 400 200 Output: Urine 950 850 Other: # Bowel Movements 2 1 Stool Characteristics Liquid Brown Active Medications: Current Medications Acetaminophen (Tylenol 650mg Supp) 650 mg RC Q4H PRN PRN Reason: Fever > 101 Stop: 03/10/17 13:04 Last Admin: 01/12/17 03:37 Dose: 650 mg Albuterol/Ipratropium (Duoneb Neb) 3 ml HHN Q4HRT [facility] Stop: 03/11/17 14:59 Last Admin: 01/16/17 07:28 Dose: 3 ml Albuterol/Ipratropium (Duoneb Neb) 3 ml HHN Q2HRT PRN PRN Reason: Wheezing Stop: 03/11/17 13:46 Artificial Tears (Artificial Tears Ophth Soln) 1 drop EACH EYE BID [facility] Stop: 03/08/17 08:59 Last Admin: 01/15/17 17:29 Dose: 1 drop Ascorbic Acid (Vitamin C) 500 mg PO DAILY [facility] Stop: 03/08/17 08:59 Last Admin: 01/15/17 09:31 Dose: 500 mg Aspirin (Aspirin Chewable) 81 mg PO DAILY [facility]ZY Stop: 03/13/17 08:59 Last Admin: 01/15/17 09:39 Dose: 81 mg Atorvastatin Calcium (Lipitor) 20 mg PO DAILY LIZY PRN Reason: Protocol Stop: 03/12/17 16:29 Last Admin: 01/15/17 09:31 Dose: 20 mg Atropine Sulfate (Atropine Syringe) 1 mg IVP Q4HR PRN PRN Reason: HR BELOW 40 Stop: 03/09/17 08:32 Last Admin: 01/09/17 01:00 Dose: 1 mg Bisacodyl (Dulcolax 10 Mg Supp) 10 mg RC HS [facility]ZY Stop: 03/14/17 20:59 Last Admin: 01/15/17 21:20 Dose: Not Given Calcium/Vitamin D (Oscal W/Vitamin D) 1 tab PO DAILY LIZY Stop: 03/08/17 08:59 Last Admin: 01/15/17 09:32 Dose: 1 tab Cyanocobalamin (Vitamin B12) 500 mcg PO DAILY [facility]ZY Stop: 03/08/17 08:59 Last Admin: 01/15/17 09:32 Dose: 500 mcg Diltiazem HCl (Cardizem) 20 mg IVP Q4HR PRN PRN Reason: FOR HR>130 Stop: 03/13/17 03:53 Last Admin: 01/12/17 20:50 Dose: 20 mg Docusate Sodium (Colace) 100 mg PO DAILY LIZY Stop: 03/08/17 08:59 Last Admin: 01/15/17 09:32 Dose: 100 mg Piperacillin Sod/Tazobactam (Sod 3.375 gm/ Sodium Chloride) 50 mls @ 100 mls/ hr IV Q6HR [facility] Stop: 03/13/17 08:49 Last Admin: 01/16/17 06:25 Dose: 100 mls/hr Levetiracetam (Keppra Pb) 500 mg in 100 mls @ 400 mls/hr IV Q12HR@0900,2100 [facility] Stop: 03/13/17 10:29 Last Infusion: 01/15/17 21:36 Dose: Infused Insulin Aspart (Novolog Insulin Sliding Scale) 2 - 12 units SUBQ ACHS LIZY PRN Reason: Protocol Stop: 03/16/17 20:59 Last Admin: 01/16/17 06:37 Dose: 4 units Lorazepam (Ativan) 1 mg IVP Q4HR PRN; Protocol PRN Reason: Seizure Stop: 03/15/17 09:07 Methylprednisolone Sodium Succinate (Solu-Medrol) 60 mg IVP Q12HR [facility]Y Stop: 03/16/17 08:59 Last Admin: 01/15/17 21:21 Dose: 60 mg Mineral Oil (Fleet Mineral Oil) 135 ml RC DAILY PRN PRN Reason: CONSTIPATION Stop: 03/13/17 12:59 Last Admin: 01/14/17 10:49 Dose: 135 ml Mineral Oil (Mineral Oil 30 Ml) 30 ml NG Q6HR [facility]Y Stop: 03/15/17 11:59 Last Admin: 01/16/17 06:25 Dose: 30 ml Miscellaneous (Vte Chemical Prophylaxis Screen/ Admission) 1 ea PRN PRN PRN Reason: PROTOCOL Stop: 03/08/17 11:10 Miscellaneous (Zosyn Iv Per Pharmacy) 1 ea PRN PRN PRN Reason: PROTOCOL Stop: 03/13/17 08:34 Miscellaneous (Probiotic Screen) 1 [facility] PRN PRN PRN Reason: PROTOCOL Stop: 03/13/17 13:54 Polyethylene Glycol (Miralax) 17 gm PO BID LIZY Stop: 03/14/17 16:59 Last Admin: 01/15/17 17:29 Dose: 17 gm Potassium Chloride (Klor-Con) 20 meq PO DAILY LIZY Stop: 03/08/17 08:59 Last Admin: 01/15/17 09:31 Dose: 20 meq General: Alert, No acute distress HEENT: Atraumatic, PERRLA, EOMI Neck: Supple Cardiovascular: Regular rate, Normal S1, Normal S2 Lungs: Other (wheezing,) Abdomen: Bowel sounds, Soft, Other (non tender, no guarding, no rebound) Extremities: no Clubbing, no Cyanosis, no Edema Assessment/Plan - Problem List Patient Problems: All Active Problems Constipation (Acute) K59.00 Dementia (Acute) F03.90 Facial twitching (Acute) G51.4 Hypocalcemia (Acute) E83.51 Hypokalemia (Acute) E87.6 Hypomagnesemia (Acute) E83.42 Hypophosphatemia (Acute) E83.39 Ileus (Acute) K56.7 Leukocytosis (Acute) D72.829 Multiple sclerosis (Acute) G35 Seizure disorder (Acute) G40.909 Sinus bradycardia (Acute) R00.1 - Assessment Assessment: ALOC ... improved. CT head NAD, CT carotid no significant stenosis. hypotensive ... improved. will continue IV fluid support. hypernatremia Na 156+ hypokalemia ... will change fluids to D5 1/2NS @ 75cc/hr. add KCL to fluids. . Electrolyte imbalance ... will continue to monitor daily and correct as needed. 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 for carotid duplex, results pending. Leukocytosis improved ... continue Vancomycin IV and Zosyn IV per pharmacy. MS acute exacerbation ... stable. Patient to continue steroids IV. Ileus vs SBO .... keep NPO. continue IV fluids. will order KUB for today. cardiac arrhythmia ... continue anti-arrythmics per Cardiology Seizure disorder ... on Keppra UTI +Pseudomonas ... continue current IV antibiotics. Hyperglycemia ... will decrease solumedrol. dc D5W. - Plan Plan: ALOC ... improved. CT head NAD, CT carotid NAD. hypotensive ... improved. will continue IV fluid support. hypernatremia Na 156+ hypokalemia ... will change fluids to D5 1/2NS @ 75cc/hr. add KCL to fluids. check CMP,Mg,Phos,Ca tomorrow. Electrolyte imbalance ... will continue to monitor daily and correct as needed. CVA per MRI head ... management per Dr. Franklin. patient on Heparin drip. for carotid duplex. Leukocytosis improved ... WBC's 10K ... DC Rocephin. Will start Vancomycin IV and Zosyn IV per pharmacy MS acute exacerbation ... stable. Patient to continue steroids IV please see neurology consult, CT head neg, constipation ... continue current treatment per GI. cardiac arrhythmia ... continue treatment per Cardiology Nutritional Asmnt/Malnutr-PDOC - Dietary Evaluation Malnutrition Findings (Please click <Entered> for more info): Nutritional Asmnt/Malnutrition Start: 01/08/17 12: 55 Text: Status: Complete Freq: Document 01/08/17 12:56 GSUN (Rec: 01/08/17 13:16 [email or web address] [id number]) Nutritional Asmnt/Malnutrition Patient General Information Nutritional Screening Consult Diagnosis ALOC, acute MS exacerbation Pertinent Medical Hx/Surgical Hx Dementia, multiple sclerosis, constipation Subjective Information 76 year old male from SNF. RD consult for laura Huntley. Per RN notes, facial twitching on adm, currently NPO with swallow eval pending. Pt was awake during visit, followed RD with eyes, did not provide any information. Mild wasting to chest noted, loose skin to arms. Current Diet Order/ Nutrition Support NPO Pertinent Medications Vitamin C, Oscal W/Vitamin D, Vitamin B12, D5-0.45ns, Dulcolax, Colace Pertinent Labs 01/08: reviewed. Glucose 148H Nutritional Hx/Data Height 1.85 m Height (Calculated Centimeters) 185.4 Current Weight (lbs) 69.49 kg Weight (Calculated Kilograms) 69.5 Weight (Calculated Grams) 76290.4 [place] Body Weight 184 Weight Status Approriate GI Symptoms Usual diet at home [facility]: pureed, large portion lunch and dinner, 4oz house supplement Skin Integrity/Comment: Audi 12. Pressure area r foot and upper back, abrasion l knee and r leg Estimated Nutritional Goals BEE in Kcals: Using Current wt Calories/Kcals/Kg IBW 184lb/83.6kg with consideration skin integrity and BMI Kcals Calculated 2090-2508kcal (25-30kcal/kg) Protein: Using Current wt Protein Calculated 84-109g (1-1.3g/kg) Fluid: ml 2090-2508ml (1ml/kcal) Nutritional Problem 2. 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 Recommend regular diet, diet texture per swallow eval (pending). SNF order pureed. Expected Outcomes/Goals Expected Outcomes/Goals 1. PO intake to meet at least 75% of estimated nutritional needs.
[2017-01-16] MEDS: Multivitamin w/ Minerals Tab PO SCH (09:25)
[2017-01-16] MEDS: Atorvastatin Calcium 10 MG TAB PO SCH (09:25)
[2017-01-16] MEDS: Aspirin 81mg Chewable Tab PO SCH (09:25)
[2017-01-16] MEDS: Levetiracetam 500mg/100mL 500 MG/100 ML BAG IV SCH ×2 (09:25→21:39)
[2017-01-16] MEDS: Calcium Carb/Vit D 500 mg/200 U Tab PO SCH (09:25)
[2017-01-16] MEDS: Potassium Chloride 20 mEq ER Tab PO SCH (09:25)
[2017-01-16] MEDS: POLYETHYLENE GLYCOL 3350 17 GM PACK PO SCH ×2 (09:26→17:05)
[2017-01-16] MEDS: Polyvinyl Alcohol Ophth Soln 15 mL Bottle EACH EYE SCH ×2 (09:27→17:05)
--- NOTE | 2017-01-16 09:58 | Diagnostic Imaging Report ---
Portable chest x-ray HISTORY: Shortness of breath Compared with a prior exam of 01/12/2017, the heart appears somewhat enlarged. There is a poor inspiration associated with accentuation of the interstitial lung markings. Allowing for this factor, no definite focal processes are seen. A nasogastric tube remains in the region of the stomach. IMPRESSION: 1. Allowing for poor inspiration no definite acute focal pulmonary processes 2. Slight cardiomegaly
--- NOTE | 2017-01-16 10:50 | Diagnostic Imaging Report ---
KUB abdominal film HISTORY: Abdominal distention The exam demonstrates a markedly distended stool-filled rectum and lower sigmoid colon. Additional markedly dilated loops of large bowel are seen. No free intraperitoneal air. Degenerative changes noted throughout the spine and about the hips. Atherosclerotic vascular calcification noted in the aorta and iliac vessels. IMPRESSION: 1. Distended stool-filled rectum and lower sigmoid colon along with dilated loops of large bowel. Findings consistent with a fecal impaction. 2. Atherosclerotic vascular changes
--- NOTE | 2017-01-16 11:24 | Infectious Disease Prog Note ---
Infectious Disease Subjective - Review of Systems Service Date: 01/16/17 Subjective: There is no new change, there is no fever. Doing better. Infectious Disease Objective - Results Result Diagrams: 01/18/17 05:37 01/18/17 05:37 Recent Labs: Laboratory Last Values WBC 13.9 Th/cmm (4.8-10.8) H D 01/16/17 05:00 RBC 3.67 Mil/cmm (3.80-5.80) L 01/16/17 05:00 Hgb 11.9 gm/dL (12-16) L 01/16/17 05:00 Hct 35.1 % (41.0-60) L 01/16/17 05:00 MCV 95.7 fl (80-99) 01/16/17 05:00 MCH 32.3 pg (27.0-31.0) H 01/16/17 05:00 MCHC Differential 33.8 pg (28.0-36.0) 01/16/17 05:00 RDW 13.9 % (11.5-20.0) 01/16/17 05:00 Plt Count 131 Th/cmm (150-400) L 01/16/17 05:00 MPV 8.6 fl 01/16/17 05:00 Band Neutrophils % 8 % (0-10) 01/16/17 05:00 Neutrophils (Manual) 82 % (40-80) H 01/16/17 05:00 Lymphocytes 6 % (20-50) L 01/16/17 05:00 Monocytes 4 % (2-10) 01/16/17 05:00 Eosinophils 0 % (0-5) 01/13/17 04:08 Basophils 0 % (0-3) 01/13/17 04:08 Platelet Estimate ADEQUATE (NORMAL) 01/13/17 04:08 Platelet Morphology NORMAL (NORMAL) 01/13/17 04:08 Anisocytosis 1+ 01/06/17 12:32 RBC Morph Micro Appear NORMAL (NORMAL) 01/13/17 04:08 PT 12.9 SECONDS (9.5-11.5) H 01/06/17 10:50 INR 1.23 (0.5-1.4) 01/06/17 10:50 PTT (Actin FS) 37.0 SECONDS (26.0-38.0) 01/06/17 10:50 Sodium 144 mEq/L (136-145) 01/16/17 05:00 Potassium 4.2 mEq/L (3.5-5.1) 01/16/17 05:00 Chloride 111 mEq/L (98-107) H 01/16/17 05:00 Carbon Dioxide 29.3 mEq/L (21.0-31.0) 01/16/17 05:00 Anion Gap 7.9 (7.0-16.0) 01/16/17 05:00 BUN 23 mg/dL (7-25) 01/16/17 05:00 Creatinine 0.7 mg/dL (0.7-1.3) 01/16/17 05:00 Est GFR ( Amer) TNP 01/16/17 05:00 Est GFR (Non-Af Amer) TNP 01/16/17 05:00 BUN/Creatinine Ratio 32.9 01/16/17 05:00 Glucose 275 mg/dL (70-105) H 01/16/17 05:00 POC Glucose 243 MG/DL (70 - 105) H 01/16/17 06:28 Hemoglobin A1c % 5.7 % (4.0-6.0) 01/14/17 09:07 Whole Bld Lactic Acid 0.95 mmol/L (0.60-1.99) 01/06/17 10:53 Calcium 8.3 mg/dL (8.6-10.3) L 01/16/17 05:00 Phosphorus 2.2 mg/dL (2.5-5.0) L 01/16/17 05:00 Magnesium 2.3 mg/dL (1.9-2.7) 01/15/17 04:50 Total Bilirubin 0.5 mg/dL (0.3-1.0) 01/16/17 05:00 AST 10 U/L (13-39) L 01/16/17 05:00 ALT 15 U/L (7-52) 01/16/17 05:00 Alkaline Phosphatase 53 U/L (34-104) 01/16/17 05:00 Creatine Kinase 52 U/L (30-223) 01/06/17 10:50 Total Protein 4.8 gm/dL (6.0-8.3) L 01/16/17 05:00 Albumin 2.5 gm/dL (4.2-5.5) L 01/16/17 05:00 Globulin 2.3 gm/dL 01/16/17 05:00 Albumin/Globulin Ratio 1.1 (1.0-1.8) 01/16/17 05:00 Triglycerides 343 mg/dL (<150) H 01/11/17 09:15 Cholesterol 163 mg/dL (<200) 01/11/17 09:15 LDL Cholesterol Direct 82 mg/dL (75-193) 01/11/17 09:15 HDL Cholesterol 46 mg/dL (23-92) 01/11/17 09:15 TSH 0.39 uIU/ml (0.34-5.60) 01/06/17 11:59 PTH Intact 31 pg/mL (15-65) 01/06/17 12:09 Urine Source RAE PORT 01/15/17 14:00 Urine Color YELLOW 01/15/17 14:00 Urine Clarity SLIGHT CLOUDY (CLEAR) 01/15/17 14:00 Urine pH 6.0 (4.6 - 8.0) 01/15/17 14:00 Ur Specific [place] 1.020 (1.005-1.030) 01/15/17 14:00 Urine Protein NEGATIVE mg/dL (NEGATIVE) 01/15/17 14:00 Urine Glucose (UA) >=1000 mg/dL (NEGATIVE) H 01/15/17 14:00 Urine Ketones NEGATIVE mg/dL (NEGATIVE) 01/15/17 14:00 Urine Blood MODERATE (NEGATIVE) H 01/15/17 14:00 Urine Nitrate NEGATIVE (NEGATIVE) 01/15/17 14:00 Urine Bilirubin NEGATIVE (NEGATIVE) 01/15/17 14:00 Urine Urobilinogen 0.2 E.U./dL (0.2 - 1.0) 01/15/17 14:00 Ur Leukocyte Esterase NEGATIVE (NEGATIVE) 01/15/17 14:00 Urine RBC 10-25 /hpf (0-5) H 01/15/17 14:00 Urine WBC 2-5 /hpf (0-5) H 01/15/17 14:00 Ur Epithelial Cells FEW /lpf (FEW) 01/15/17 14:00 Amorphous Sediment MODERATE URATES (NONE SEEN) 01/11/17 16:00 Urine Bacteria FEW /hpf (NONE SEEN) 01/15/17 14:00 Fine Granular Casts 0-2 /lpf (NONE SEEN) H 01/11/17 16:00 Urine Mucus FEW /lpf (FEW) 01/15/17 14:00 Urine Yeast FEW /hpf (NONE SEEN) H 01/11/17 16:00 Vancomycin Trough 7.3 ug/mL (10-20) L 01/14/17 08:05 - Physical Exam Vitals and I&O: Vital Signs Temp 98.7 F 01/16/17 08:03 Pulse 88 01/16/17 08:03 Resp 12 01/16/17 08:03 BP 90/50 01/16/17 09:30 Pulse Ox 95 01/16/17 08:03 Intake & Output 01/15/17 01/16/17 01/16/17 18:59 06:59 18:59 Intake Total 1200 950 50 Output Total 950 850 Balance 250 100 50 Weight (lbs) 80.694 kg 68.674 kg Intake: Intake, IV Amount 200 150 50 Levetiracetam 500mg/100mL 100 100 500 mg In 100 ml @ 400 mls/hr IV Q12HR@0900,2100 [facility] Rx#:[id number] Piperacillin Sodium/ 100 50 50 Tazobact 3.375 gm In Sodium Chloride 0.9% 50 ml @ 100 mls/hr IV Q6HR [facility] [place] Rx#:[id number] Tube Feeding 600 600 Other 400 200 Output: Urine 950 850 Other: # Bowel Movements 2 1 Stool Characteristics Liquid Brown Active Medications: Current Medications Acetaminophen (Tylenol 650mg Supp) 650 mg RC Q4H PRN PRN Reason: Fever > 101 Stop: 03/10/17 13:04 Last Admin: 01/12/17 03:37 Dose: 650 mg Albuterol/Ipratropium (Duoneb Neb) 3 ml HHN Q4HRT [facility] [place] Stop: 03/11/17 14:59 Last Admin: 01/16/17 07:28 Dose: 3 ml Albuterol/Ipratropium (Duoneb Neb) 3 ml HHN Q2HRT PRN PRN Reason: Wheezing Stop: 03/11/17 13:46 Artificial Tears (Artificial Tears Ophth Soln) 1 drop EACH EYE BID [facility] [place] Stop: 03/08/17 08:59 Last Admin: 01/16/17 09:27 Dose: 1 drop Ascorbic Acid (Vitamin C) 500 mg PO DAILY LIZY Stop: 03/08/17 08:59 Last Admin: 01/16/17 09:24 Dose: 500 mg Aspirin (Aspirin Chewable) 81 mg PO DAILY LIZY Stop: 03/13/17 08:59 Last Admin: 01/16/17 09:25 Dose: 81 mg Atorvastatin Calcium (Lipitor) 20 mg PO DAILY LIZY PRN Reason: Protocol Stop: 03/12/17 16:29 Last Admin: 01/16/17 09:25 Dose: 20 mg Atropine Sulfate (Atropine Syringe) 1 mg IVP Q4HR PRN PRN Reason: HR BELOW 40 Stop: 03/09/17 08:32 Last Admin: 01/09/17 01:00 Dose: 1 mg Bisacodyl (Dulcolax 10 Mg Supp) 10 mg RC HS LIZY Stop: 03/14/17 20:59 Last Admin: 01/15/17 21:20 Dose: Not Given Calcium/Vitamin D (Oscal W/Vitamin D) 1 tab PO DAILY LIZY Stop: 03/08/17 08:59 Last Admin: 01/16/17 09:25 Dose: 1 tab Cyanocobalamin (Vitamin B12) 500 mcg PO DAILY LIZY Stop: 03/08/17 08:59 Last Admin: 01/16/17 09:24 Dose: 500 mcg Diltiazem HCl (Cardizem) 20 mg IVP Q4HR PRN PRN Reason: FOR HR>130 Stop: 03/13/17 03:53 Last Admin: 01/12/17 20:50 Dose: 20 mg Docusate Sodium (Colace) 100 mg PO DAILY LIZY Stop: 03/08/17 08:59 Last Admin: 01/16/17 09:25 Dose: 100 mg Piperacillin Sod/Tazobactam (Sod 3.375 gm/ Sodium Chloride) 50 mls @ 100 mls/ hr IV Q6HR LIZY Stop: 03/13/17 08:49 Last Infusion: 01/16/17 10:59 Dose: Infused Levetiracetam (Keppra Pb) 500 mg in 100 mls @ 400 mls/hr IV Q12HR@0900,2100 [facility] Stop: 03/13/17 10:29 Last Admin: 01/16/17 09:25 Dose: 400 mls/hr Insulin Aspart (Novolog Insulin Sliding Scale) 2 - 12 units SUBQ ACHS LIZY PRN Reason: Protocol Stop: 03/16/17 20:59 Last Admin: 01/16/17 06:37 Dose: 4 units Lorazepam (Ativan) 1 mg IVP Q4HR PRN; Protocol PRN Reason: Seizure Stop: 03/15/17 09:07 Methylprednisolone Sodium Succinate (Solu-Medrol) 60 mg IVP Q12HR LIZY Stop: 03/16/17 08:59 Last Admin: 01/16/17 09:23 Dose: 60 mg Mineral Oil (Fleet Mineral Oil) 135 ml RC DAILY PRN PRN Reason: CONSTIPATION Stop: 03/13/17 12:59 Last Admin: 01/14/17 10:49 Dose: 135 ml Mineral Oil (Mineral Oil 30 Ml) 30 ml NG Q6HR [facility]ZY Stop: 03/15/17 11:59 Last Admin: 01/16/17 06:25 Dose: 30 ml Miscellaneous (Vte Chemical Prophylaxis Screen/ Admission) 1 ea PRN PRN PRN Reason: PROTOCOL Stop: 03/08/17 11:10 Miscellaneous (Zosyn Iv Per Pharmacy) 1 ea PRN PRN PRN Reason: PROTOCOL Stop: 03/13/17 08:34 Miscellaneous (Probiotic Screen) 1 ea PRN PRN PRN Reason: PROTOCOL Stop: 03/13/17 13:54 Polyethylene Glycol (Miralax) 17 gm PO BID LIZY Stop: 03/14/17 16:59 Last Admin: 01/16/17 09:26 Dose: 17 gm Potassium Chloride (Klor-Con) 20 meq PO DAILY LIZY Stop: 03/08/17 08:59 Last Admin: 01/16/17 09:25 Dose: 20 meq General: no acute distress, cachectic HEENT: atraumatic, normocephalic, PERRLA, EOMI, moist mucous membrane Neck: supple, no thyromegaly Cardiovascular: S1S2, regular Lungs: clear to auscultation bilaterally, clear to percussion Abdomen: soft, bowel sounds, no tender, no distended Extremities: no cyanosis, no clubbing, no edema Neurological: awake, alert Infectious Disease Assmt/Plan - Problem List Patient Problems: All Active Problems Constipation (Acute) K59.00 Dementia (Acute) F03.90 Facial twitching (Acute) G51.4 Hypocalcemia (Acute) E83.51 Hypokalemia (Acute) E87.6 Hypomagnesemia (Acute) E83.42 Hypophosphatemia (Acute) E83.39 Ileus (Acute) K56.7 Leukocytosis (Acute) D72.829 Multiple sclerosis (Acute) G35 Seizure disorder (Acute) G40.909 Sinus bradycardia (Acute) R00.1 - Assessment Assessment: 1. Leukocytosis and low-grade fever, sepsis. Improving. 2. Urinary tract infection. 3. Possible common bile duct obstruction distal end, cholelithiasis. 4. Fecal impaction. 5. Supraventricular tachycardia. 6. Multiple sclerosis. 7. Dementia. - Plan Plan: Continue Zosyn. DC vanco. Repeat UA is netter, so continue zosyn for 10 days total. Nutritional Asmnt/Malnutr-PDOC - Dietary Evaluation Malnutrition Findings (Please click <Entered> for more info): Nutritional Asmnt/Malnutrition Start: 01/08/17 12: 55 Text: Status: Complete Freq: Document 01/08/17 12:56 GSUN (Rec: 01/08/17 13:16 GSUN [id number]) Nutritional Asmnt/Malnutrition Patient General Information Nutritional Screening Consult Diagnosis ALOC, acute MS exacerbation Pertinent Medical Hx/Surgical Hx Dementia, multiple sclerosis, constipation Subjective Information 76 year old male from SNF. RD consult for laura Huntley. Per RN notes, facial twitching on adm, currently NPO with swallow eval pending. Pt was awake during visit, followed RD with eyes, did not provide any information. Mild wasting to chest noted, loose skin to arms. Current Diet Order/ Nutrition Support NPO Pertinent Medications Vitamin C, Oscal W/Vitamin D, Vitamin B12, D5-0.45ns, Dulcolax, Colace Pertinent Labs 01/08: reviewed. Glucose 148H Nutritional Hx/Data Height 1.85 m Height (Calculated Centimeters) 185.4 Current Weight (lbs) 69.49 kg Weight (Calculated Kilograms) 69.5 Weight (Calculated Grams) 36843.4 [place] Body Weight 184 Weight Status Approriate GI Symptoms Usual diet at home [place] [facility]: pureed, large portion lunch and dinner, 4oz house supplement Skin Integrity/Comment: Audi 12. Pressure area r foot and upper back, abrasion l knee and r leg Estimated Nutritional Goals BEE in Kcals: Using Current wt Calories/Kcals/Kg IBW 184lb/83.6kg with consideration skin integrity and BMI Kcals Calculated 2089-250kcal (25-30kcal/kg) Protein: Using Current wt Protein Calculated 84-109g (1-1.3g/kg) Fluid: ml 2089-2508ml (1ml/kcal) Nutritional Problem 2. Problem Problem Increased prot needs related to Etiology skin integrity aeb Signs/Symptoms: glove maker: pressure area to right foot and upper back, abrasion ro left knee and right lower leg 1. 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 Recommend regular diet, diet texture per swallow eval (pending). SNF order pureed. Expected Outcomes/Goals Expected Outcomes/Goals 1. PO intake to meet at least 75% of estimated nutritional needs.
[2017-01-17] MEDS: Albuterol/Ipratropium Neb 3 ML AERS HHN SCH ×6 (02:41→22:02)
[2017-01-17] MEDS: INSULIN ASPART SLIDING SCALE 100 UNITS/ML UNIT SUBQ SCH ×4 (06:47→22:00)
--- NOTE | 2017-01-17 08:30 | General Progress Note ---
Subjective - Review of Systems Service Date: 01/17/17 Subjective: Patient is now having BM's. For swallow evaluation. Patient appears better. slightly congested. Objective - Results Result Diagrams: 01/16/17 05:00 01/16/17 05:00 Recent Labs: Laboratory Last Values WBC 13.9 Th/cmm (4.8-10.8) H D 01/16/17 05:00 RBC 3.67 Mil/cmm (3.80-5.80) L 01/16/17 05:00 Hgb 11.9 gm/dL (12-16) L 01/16/17 05:00 Hct 35.1 % (41.0-60) L 01/16/17 05:00 MCV 95.7 fl (80-99) 01/16/17 05:00 MCH 32.3 pg (27.0-31.0) H 01/16/17 05:00 MCHC Differential 33.8 pg (28.0-36.0) 01/16/17 05:00 RDW 13.9 % (11.5-20.0) 01/16/17 05:00 Plt Count 131 Th/cmm (150-400) L 01/16/17 05:00 MPV 8.6 fl 01/16/17 05:00 Band Neutrophils % 8 % (0-10) 01/16/17 05:00 Neutrophils (Manual) 82 % (40-80) H 01/16/17 05:00 Lymphocytes 6 % (20-50) L 01/16/17 05:00 Monocytes 4 % (2-10) 01/16/17 05:00 Eosinophils 0 % (0-5) 01/13/17 04:08 Basophils 0 % (0-3) 01/13/17 04:08 Platelet Estimate ADEQUATE (NORMAL) 01/13/17 04:08 Platelet Morphology NORMAL (NORMAL) 01/13/17 04:08 Anisocytosis 1+ 01/06/17 12:32 RBC Morph Micro Appear NORMAL (NORMAL) 01/13/17 04:08 PT 12.9 SECONDS (9.5-11.5) H 01/06/17 10:50 INR 1.23 (0.5-1.4) 01/06/17 10:50 PTT (Actin FS) 37.0 SECONDS (26.0-38.0) 01/06/17 10:50 Sodium 144 mEq/L (136-145) 01/16/17 05:00 Potassium 4.2 mEq/L (3.5-5.1) 01/16/17 05:00 Chloride 111 mEq/L (98-107) H 01/16/17 05:00 Carbon Dioxide 29.3 mEq/L (21.0-31.0) 01/16/17 05:00 Anion Gap 7.9 (7.0-16.0) 01/16/17 05:00 BUN 23 mg/dL (7-25) 01/16/17 05:00 Creatinine 0.7 mg/dL (0.7-1.3) 01/16/17 05:00 Est GFR ( Amer) TNP 01/16/17 05:00 Est GFR (Non-Af Amer) TNP 01/16/17 05:00 BUN/Creatinine Ratio 32.9 01/16/17 05:00 Glucose 275 mg/dL (70-105) H 01/16/17 05:00 POC Glucose 172 MG/DL (70 - 105) H 01/17/17 06:41 Hemoglobin A1c % 5.7 % (4.0-6.0) 01/14/17 09:07 Whole Bld Lactic Acid 0.95 mmol/L (0.60-1.99) 01/06/17 10:53 Calcium 8.3 mg/dL (8.6-10.3) L 01/16/17 05:00 Phosphorus 2.2 mg/dL (2.5-5.0) L 01/16/17 05:00 Magnesium 2.3 mg/dL (1.9-2.7) 01/15/17 04:50 Total Bilirubin 0.5 mg/dL (0.3-1.0) 01/16/17 05:00 AST 10 U/L (13-39) L 01/16/17 05:00 ALT 15 U/L (7-52) 01/16/17 05:00 Alkaline Phosphatase 53 U/L (34-104) 01/16/17 05:00 Creatine Kinase 52 U/L (30-223) 01/06/17 10:50 Total Protein 4.8 gm/dL (6.0-8.3) L 01/16/17 05:00 Albumin 2.5 gm/dL (4.2-5.5) L 01/16/17 05:00 Globulin 2.3 gm/dL 01/16/17 05:00 Albumin/Globulin Ratio 1.1 (1.0-1.8) 01/16/17 05:00 Triglycerides 343 mg/dL (<150) H 01/11/17 09:15 Cholesterol 163 mg/dL (<200) 01/11/17 09:15 LDL Cholesterol Direct 82 mg/dL (75-193) 01/11/17 09:15 HDL Cholesterol 46 mg/dL (23-92) 01/11/17 09:15 TSH 0.39 uIU/ml (0.34-5.60) 01/06/17 11:59 PTH Intact 31 pg/mL (15-65) 01/06/17 12:09 Urine Source RAE PORT 01/15/17 14:00 Urine Color YELLOW 01/15/17 14:00 Urine Clarity SLIGHT CLOUDY (CLEAR) 01/15/17 14:00 Urine pH 6.0 (4.6 - 8.0) 01/15/17 14:00 Ur Specific [place] 1.020 (1.005-1.030) 01/15/17 14:00 Urine Protein NEGATIVE mg/dL (NEGATIVE) 01/15/17 14:00 Urine Glucose (UA) >=1000 mg/dL (NEGATIVE) H 01/15/17 14:00 Urine Ketones NEGATIVE mg/dL (NEGATIVE) 01/15/17 14:00 Urine Blood MODERATE (NEGATIVE) H 01/15/17 14:00 Urine Nitrate NEGATIVE (NEGATIVE) 01/15/17 14:00 Urine Bilirubin NEGATIVE (NEGATIVE) 01/15/17 14:00 Urine Urobilinogen 0.2 E.U./dL (0.2 - 1.0) 01/15/17 14:00 Ur Leukocyte Esterase NEGATIVE (NEGATIVE) 01/15/17 14:00 Urine RBC 10-25 /hpf (0-5) H 01/15/17 14:00 Urine WBC 2-5 /hpf (0-5) H 01/15/17 14:00 Ur Epithelial Cells FEW /lpf (FEW) 01/15/17 14:00 Amorphous Sediment MODERATE URATES (NONE SEEN) 01/11/17 16:00 Urine Bacteria FEW /hpf (NONE SEEN) 01/15/17 14:00 Fine Granular Casts 0-2 /lpf (NONE SEEN) H 01/11/17 16:00 Urine Mucus FEW /lpf (FEW) 01/15/17 14:00 Urine Yeast FEW /hpf (NONE SEEN) H 01/11/17 16:00 Vancomycin Trough 7.3 ug/mL (10-20) L 01/14/17 08:05 - Physical Exam Vitals and I&O: Vital Signs Temp 99.0 F 01/17/17 07:49 Pulse 83 01/17/17 07:49 Resp 22 01/17/17 07:49 BP 134/80 01/17/17 07:49 Pulse Ox 98 01/17/17 07:49 Intake & Output 01/16/17 01/17/17 01/17/17 18:59 06:59 18:59 Intake Total 1450 250 Output Total 1200 1200 Balance 250 -950 Weight (lbs) 68.674 kg 68.492 kg Intake: Intake, IV Amount 250 50 Levetiracetam 500mg/100mL 100 500 mg In 100 ml @ 400 mls/hr IV Q12HR@0900,2100 [facility] Rx#:[id number] Piperacillin Sodium/ 150 50 Tazobact 3.375 gm In Sodium Chloride 0.9% 50 ml @ 100 mls/hr IV Q6HR [facility] Rx#:[id number] Tube Feeding 600 Other 600 200 Output: Urine 1200 1200 Other: # Bowel Movements 0 3 Active Medications: Current Medications Acetaminophen (Tylenol 650mg Supp) 650 mg RC Q4H PRN PRN Reason: Fever > 101 Stop: 03/10/17 13:04 Last Admin: 01/12/17 03:37 Dose: 650 mg Albuterol/Ipratropium (Duoneb Neb) 3 ml HHN Q4HRT [facility] Stop: 03/11/17 14:59 Last Admin: 01/17/17 07:06 Dose: 3 ml Albuterol/Ipratropium (Duoneb Neb) 3 ml HHN Q2HRT PRN PRN Reason: Wheezing Stop: 03/11/17 13:46 Artificial Tears (Artificial Tears Ophth Soln) 1 drop EACH EYE BID [facility] Stop: 03/08/17 08:59 Last Admin: 01/16/17 17:05 Dose: 1 drop Ascorbic Acid (Vitamin C) 500 mg PO DAILY LIZY Stop: 03/08/17 08:59 Last Admin: 01/16/17 09:24 Dose: 500 mg Aspirin (Aspirin Chewable) 81 mg PO DAILY LIZY Stop: 03/13/17 08:59 Last Admin: 01/16/17 09:25 Dose: 81 mg Atorvastatin Calcium (Lipitor) 20 mg PO DAILY LIZY PRN Reason: Protocol Stop: 03/12/17 16:29 Last Admin: 01/16/17 09:25 Dose: 20 mg Atropine Sulfate (Atropine Syringe) 1 mg IVP Q4HR PRN PRN Reason: HR BELOW 40 Stop: 03/09/17 08:32 Last Admin: 01/09/17 01:00 Dose: 1 mg Bisacodyl (Dulcolax 10 Mg Supp) 10 mg RC HS LIZY Stop: 03/14/17 20:59 Last Admin: 01/16/17 21:47 Dose: 10 mg Calcium/Vitamin D (Oscal W/Vitamin D) 1 tab PO DAILY LIZY Stop: 03/08/17 08:59 Last Admin: 01/16/17 09:25 Dose: 1 tab Cyanocobalamin (Vitamin B12) 500 mcg PO DAILY LIZY Stop: 03/08/17 08:59 Last Admin: 01/16/17 09:24 Dose: 500 mcg Diltiazem HCl (Cardizem) 20 mg IVP Q4HR PRN PRN Reason: FOR HR>130 Stop: 03/13/17 03:53 Last Admin: 01/12/17 20:50 Dose: 20 mg Docusate Sodium (Colace) 100 mg PO DAILY LIZY Stop: 03/08/17 08:59 Last Admin: 01/16/17 09:25 Dose: 100 mg Piperacillin Sod/Tazobactam (Sod 3.375 gm/ Sodium Chloride) 50 mls @ 100 mls/ hr IV Q6HR [facility] Stop: 03/13/17 08:49 Last Admin: 01/17/17 05:47 Dose: 100 mls/hr Levetiracetam (Keppra Pb) 500 mg in 100 mls @ 400 mls/hr IV Q12HR@0900,2100 [facility] Stop: 03/13/17 10:29 Last Admin: 01/16/17 21:39 Dose: 400 mls/hr Insulin Aspart (Novolog Insulin Sliding Scale) 2 - 12 units SUBQ ACHS LIZY PRN Reason: Protocol Stop: 03/16/17 20:59 Last Admin: 01/17/17 06:47 Dose: 2 units Lorazepam (Ativan) 1 mg IVP Q4HR PRN; Protocol PRN Reason: Seizure Stop: 03/15/17 09:07 Methylprednisolone Sodium Succinate (Solu-Medrol) 60 mg IVP Q12HR [facility] Stop: 03/16/17 08:59 Last Admin: 01/16/17 21:47 Dose: 60 mg Mineral Oil (Fleet Mineral Oil) 135 ml RC DAILY PRN PRN Reason: CONSTIPATION Stop: 03/13/17 12:59 Last Admin: 01/14/17 10:49 Dose: 135 ml Mineral Oil (Mineral Oil 30 Ml) 30 ml NG Q6HR [facility] Stop: 03/15/17 11:59 Last Admin: 01/17/17 05:47 Dose: 30 ml Miscellaneous (Vte Chemical Prophylaxis Screen/ Admission) 1 ea PRN PRN PRN Reason: PROTOCOL Stop: 03/08/17 11:10 Miscellaneous (Zosyn Iv Per Pharmacy) 1 ea PRN PRN PRN Reason: PROTOCOL Stop: 03/13/17 08:34 Miscellaneous (Probiotic Screen) 1 ea PRN PRN PRN Reason: PROTOCOL Stop: 03/13/17 13:54 Polyethylene Glycol (Miralax) 17 gm PO BID LIZY Stop: 03/14/17 16:59 Last Admin: 01/16/17 17:05 Dose: 17 gm Potassium Chloride (Klor-Con) 20 meq PO DAILY LIZY Stop: 03/08/17 08:59 Last Admin: 01/16/17 09:25 Dose: 20 meq General: Alert, No acute distress HEENT: Atraumatic, PERRLA, EOMI Neck: Supple Cardiovascular: Regular rate, Normal S1, Normal S2 Lungs: Other (wheezing,) Abdomen: Bowel sounds, Soft, Other (non tender, no guarding, no rebound) Extremities: no Clubbing, no Cyanosis, no Edema Assessment/Plan - Problem List Patient Problems: All Active Problems Constipation (Acute) K59.00 Dementia (Acute) F03.90 Facial twitching (Acute) G51.4 Hypocalcemia (Acute) E83.51 Hypokalemia (Acute) E87.6 Hypomagnesemia (Acute) E83.42 Hypophosphatemia (Acute) E83.39 Ileus (Acute) K56.7 Leukocytosis (Acute) D72.829 Multiple sclerosis (Acute) G35 Seizure disorder (Acute) G40.909 Sinus bradycardia (Acute) R00.1 - Assessment Assessment: ALOC ... improved. CT head NAD, CT carotid no significant stenosis. hypotensive ... improved. will continue IV fluid support. hypernatremia Na 156+ hypokalemia ... will change fluids to D5 1/2NS @ 75cc/hr. add KCL to fluids. . Electrolyte imbalance ... will continue to monitor daily and correct as needed. 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 for carotid duplex, results pending. Leukocytosis improved ... continue Vancomycin IV and Zosyn IV per pharmacy. MS acute exacerbation ... stable. Patient to continue steroids IV. Ileus vs SBO .... keep NPO. continue IV fluids. will order KUB for today. cardiac arrhythmia ... continue anti-arrythmics per Cardiology Seizure disorder ... on Keppra UTI +Pseudomonas ... continue current IV antibiotics. Hyperglycemia ... will decrease solumedrol. dc D5W. - Plan Plan: ALOC ... improved. CT head NAD, CT carotid NAD. hypotensive ... improved. will continue IV fluid support. hypernatremia Na 156+ hypokalemia ... will change fluids to D5 1/2NS @ 75cc/hr. add KCL to fluids. check CMP,Mg,Phos,Ca tomorrow. Electrolyte imbalance ... will continue to monitor daily and correct as needed. CVA per MRI head ... management per Dr. Franklin. patient on Heparin drip. for carotid duplex. Leukocytosis improved ... WBC's 10K ... DC Rocephin. Will start Vancomycin IV and Zosyn IV per pharmacy MS acute exacerbation ... stable. Patient to continue steroids IV please see neurology consult, CT head neg, constipation ... continue current treatment per GI. cardiac arrhythmia ... continue treatment per Cardiology Nutritional Asmnt/Malnutr-PDOC - Dietary Evaluation Malnutrition Findings (Please click <Entered> for more info): Nutritional Asmnt/Malnutrition Start: 01/08/17 12: 55 Text: Status: Complete Freq: Document 01/08/17 12:56 GSUN (Rec: 01/08/17 13:16 [id number]) Nutritional Asmnt/Malnutrition Patient General Information Nutritional Screening Consult Diagnosis ALOC, acute MS exacerbation Pertinent Medical Hx/Surgical Hx Dementia, multiple sclerosis, constipation Subjective Information 76 year old male from SNF. RD consult for laura Huntley. Per RN notes, facial twitching on adm, currently NPO with swallow eval pending. Pt was awake during visit, followed RD with eyes, did not provide any information. Mild wasting to chest noted, loose skin to arms. Current Diet Order/ Nutrition Support NPO Pertinent Medications Vitamin C, Oscal W/Vitamin D, Vitamin B12, D5-0.45ns, Dulcolax, Colace Pertinent Labs 01/08: reviewed. Glucose 148H Nutritional Hx/Data Height 1.85 m Height (Calculated Centimeters) 185.4 Current Weight (lbs) 69.49 kg Weight (Calculated Kilograms) 69.5 Weight (Calculated Grams) 60198.4 [place] Body Weight 184 Weight Status Approriate GI Symptoms Usual diet at home [facility]: pureed, large portion lunch and dinner, 4oz house supplement Skin Integrity/Comment: Audi 12. Pressure area r foot and upper back, abrasion l knee and r leg Estimated Nutritional Goals BEE in Kcals: Using Current wt Calories/Kcals/Kg IBW 184lb/83.6kg with consideration skin integrity and BMI Kcals Calculated 2090-2508kcal (25-30kcal/kg) Protein: Using Current wt Protein Calculated 84-109g (1-1.3g/kg) Fluid: ml 2090-2508ml (1ml/kcal) Nutritional Problem 2. Problem Problem Increased prot needs related to Etiology skin integrity aeb Signs/Symptoms: ct tech: pressure area to right foot and upper back, abrasion ro left knee and right lower leg 1. 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 Recommend regular diet, diet texture per swallow eval (pending). SNF order pureed. Expected Outcomes/Goals Expected Outcomes/Goals 1. PO intake to meet at least 75% of estimated nutritional needs.
--- NOTE | 2017-01-17 08:45 | Diagnostic Imaging Report ---
KUB abdominal film HISTORY: Abdominal distention Compared with the prior exam of January 16, 2017, there remains persistent dilatation of the stool-filled rectum and lower sigmoid colon. Associated dilated loops of large and small bowel. IMPRESSION: 1. Findings consistent with a persistent fecal impaction. A scheduled barium enema was deferred at this time to allow for further bowel preparation.
[2017-01-17 09:11] LABS: HEMATOCRIT 35.9 % (41.0-60); HEMOGLOBIN 12.1 gm/dL (12-16); MEAN CELL VOLUME 95.5 fl (80-99); MEAN CORPUSCULAR HEMOGLOBIN 32.2 pg (27.0-31.0); MEAN CORPUSCULAR HGB CONC 33.8 pg (28.0-36.0); MEAN PLATELET VOLUME 8.7 fl; NEUTROPHILE ABSOLUTE 14.2 Th/cmm (1.8-8.0); PLATELET COUNT 133 Th/cmm (150-400); RED BLOOD COUNT 3.76 Mil/cmm (3.80-5.80); RED CELL DISTRIBUTION WIDTH 13.3 % (11.5-20.0)
[2017-01-17 09:21] LABS: WHITE BLOOD COUNT 15.3 Th/cmm (4.8-10.8)
[2017-01-17 09:31] LABS: ALB/GLOB RATIO 1.2 (1.0-1.8); ALKALINE PHOSPHATASE 50 U/L (34-104); ANION GAP 7.4 (7.0-16.0); BILIRUBIN,TOTAL 0.7 mg/dL (0.3-1.0); BUN - UREA NITROGEN 20 mg/dL (7-25); BUN/CREATININE RATIO 33.3; CARBON DIOXIDE 29.5 mEq/L (21.0-31.0); CHLORIDE 102 mEq/L (98-107); CREATININE - SERUM 0.6 mg/dL (0.7-1.3); GLUCOSE 175 mg/dL (70-105); POTASSIUM SERUM 3.9 mEq/L (3.5-5.1); SGOT 14 U/L (13-39); SGPT/ALT 16 U/L (7-52); SODIUM SERUM 135 mEq/L (136-145)
[2017-01-17 09:32] LABS: BAND NEUTROPHILE 3 % (0-10); NEUTROPHILS 87 % (40-80); TOTAL CELLS COUNTED 100
[2017-01-17] MEDS: Aspirin 81mg Chewable Tab PO SCH (09:48)
[2017-01-17] MEDS: Calcium Carb/Vit D 500 mg/200 U Tab PO SCH (09:48)
[2017-01-17] MEDS: POLYETHYLENE GLYCOL 3350 17 GM PACK PO SCH ×2 (09:48→17:04)
[2017-01-17] MEDS: Levetiracetam 500mg/100mL 500 MG/100 ML BAG IV SCH ×2 (09:48→22:00)
[2017-01-17] MEDS: Multivitamin w/ Minerals Tab PO SCH (09:48)
[2017-01-17] MEDS: Atorvastatin Calcium 10 MG TAB PO SCH (09:49)
[2017-01-17] MEDS: Potassium Chloride 20 mEq ER Tab PO SCH (09:58)
[2017-01-17] MEDS: Polyvinyl Alcohol Ophth Soln 15 mL Bottle EACH EYE SCH ×2 (09:59→16:56)
--- NOTE | 2017-01-17 13:11 | GI Progress Note ---
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 Objective - Results Result Diagrams: 01/17/17 08:50 01/17/17 08:50 Recent Labs: Laboratory Last Values WBC 15.3 Th/cmm (4.8-10.8) H 01/17/17 08:50 RBC 3.76 Mil/cmm (3.80-5.80) L 01/17/17 08:50 Hgb 12.1 gm/dL (12-16) 01/17/17 08:50 Hct 35.9 % (41.0-60) L 01/17/17 08:50 MCV 95.5 fl (80-99) 01/17/17 08:50 MCH 32.2 pg (27.0-31.0) H 01/17/17 08:50 MCHC Differential 33.8 pg (28.0-36.0) 01/17/17 08:50 RDW 13.3 % (11.5-20.0) 01/17/17 08:50 Plt Count 133 Th/cmm (150-400) L 01/17/17 08:50 MPV 8.7 fl 01/17/17 08:50 Band Neutrophils % 3 % (0-10) 01/17/17 08:50 Neutrophils (Manual) 87 % (40-80) H 01/17/17 08:50 Lymphocytes 5 % (20-50) L 01/17/17 08:50 Monocytes 5 % (2-10) 01/17/17 08:50 Eosinophils 0 % (0-5) 01/13/17 04:08 Basophils 0 % (0-3) 01/13/17 04:08 Platelet Estimate ADEQUATE (NORMAL) 01/13/17 04:08 Platelet Morphology NORMAL (NORMAL) 01/13/17 04:08 Anisocytosis 1+ 01/06/17 12:32 RBC Morph Micro Appear NORMAL (NORMAL) 01/13/17 04:08 PT 12.9 SECONDS (9.5-11.5) H 01/06/17 10:50 INR 1.23 (0.5-1.4) 01/06/17 10:50 PTT (Actin FS) 37.0 SECONDS (26.0-38.0) 01/06/17 10:50 Sodium 135 mEq/L (136-145) L 01/17/17 08:50 Potassium 3.9 mEq/L (3.5-5.1) 01/17/17 08:50 Chloride 102 mEq/L (98-107) 01/17/17 08:50 Carbon Dioxide 29.5 mEq/L (21.0-31.0) 01/17/17 08:50 Anion Gap 7.4 (7.0-16.0) 01/17/17 08:50 BUN 20 mg/dL (7-25) 01/17/17 08:50 Creatinine 0.6 mg/dL (0.7-1.3) L 01/17/17 08:50 Est GFR ( Amer) TNP 01/17/17 08:50 Est GFR (Non-Af Amer) TNP 01/17/17 08:50 BUN/Creatinine Ratio 33.3 01/17/17 08:50 Glucose 175 mg/dL (70-105) H 01/17/17 08:50 POC Glucose 139 MG/DL (70 - 105) H 01/17/17 11:52 Hemoglobin A1c % 5.7 % (4.0-6.0) 01/14/17 09:07 Whole Bld Lactic Acid 0.95 mmol/L (0.60-1.99) 01/06/17 10:53 Calcium 8.0 mg/dL (8.6-10.3) L 01/17/17 08:50 Phosphorus 2.2 mg/dL (2.5-5.0) L 01/16/17 05:00 Magnesium 2.3 mg/dL (1.9-2.7) 01/15/17 04:50 Total Bilirubin 0.7 mg/dL (0.3-1.0) 01/17/17 08:50 AST 14 U/L (13-39) 01/17/17 08:50 ALT 16 U/L (7-52) 01/17/17 08:50 Alkaline Phosphatase 50 U/L (34-104) 01/17/17 08:50 Creatine Kinase 52 U/L (30-223) 01/06/17 10:50 Total Protein 4.6 gm/dL (6.0-8.3) L 01/17/17 08:50 Albumin 2.5 gm/dL (4.2-5.5) L 01/17/17 08:50 Globulin 2.1 gm/dL 01/17/17 08:50 Albumin/Globulin Ratio 1.2 (1.0-1.8) 01/17/17 08:50 Triglycerides 343 mg/dL (<150) H 01/11/17 09:15 Cholesterol 163 mg/dL (<200) 01/11/17 09:15 LDL Cholesterol Direct 82 mg/dL (75-193) 01/11/17 09:15 HDL Cholesterol 46 mg/dL (23-92) 01/11/17 09:15 TSH 0.39 uIU/ml (0.34-5.60) 01/06/17 11:59 PTH Intact 31 pg/mL (15-65) 01/06/17 12:09 Urine Source RAE PORT 01/15/17 14:00 Urine Color YELLOW 01/15/17 14:00 Urine Clarity SLIGHT CLOUDY (CLEAR) 01/15/17 14:00 Urine pH 6.0 (4.6 - 8.0) 01/15/17 14:00 Ur Specific [place] 1.020 (1.005-1.030) 01/15/17 14:00 Urine Protein NEGATIVE mg/dL (NEGATIVE) 01/15/17 14:00 Urine Glucose (UA) >=1000 mg/dL (NEGATIVE) H 01/15/17 14:00 Urine Ketones NEGATIVE mg/dL (NEGATIVE) 01/15/17 14:00 Urine Blood MODERATE (NEGATIVE) H 01/15/17 14:00 Urine Nitrate NEGATIVE (NEGATIVE) 01/15/17 14:00 Urine Bilirubin NEGATIVE (NEGATIVE) 01/15/17 14:00 Urine Urobilinogen 0.2 E.U./dL (0.2 - 1.0) 01/15/17 14:00 Ur Leukocyte Esterase NEGATIVE (NEGATIVE) 01/15/17 14:00 Urine RBC 10-25 /hpf (0-5) H 01/15/17 14:00 Urine WBC 2-5 /hpf (0-5) H 01/15/17 14:00 Ur Epithelial Cells FEW /lpf (FEW) 01/15/17 14:00 Amorphous Sediment MODERATE URATES (NONE SEEN) 01/11/17 16:00 Urine Bacteria FEW /hpf (NONE SEEN) 01/15/17 14:00 Fine Granular Casts 0-2 /lpf (NONE SEEN) H 01/11/17 16:00 Urine Mucus FEW /lpf (FEW) 01/15/17 14:00 Urine Yeast FEW /hpf (NONE SEEN) H 01/11/17 16:00 Vancomycin Trough 7.3 ug/mL (10-20) L 01/14/17 08:05 - Physical Exam Vitals and I&O: Vital Signs Temp 98.0 F 01/17/17 11:48 Pulse 77 01/17/17 11:48 Resp 22 01/17/17 12:00 BP 131/82 01/17/17 11:48 Pulse Ox 98 01/17/17 11:48 Intake & Output 01/16/17 01/17/17 01/17/17 18:59 06:59 18:59 Intake Total 1450 400 Output Total 1200 1200 Balance 250 -800 Weight (lbs) 68.674 kg 68.492 kg Intake: Intake, IV Amount 250 200 Levetiracetam 500mg/100mL 100 100 500 mg In 100 ml @ 400 mls/hr IV Q12HR@0900,2100 [facility] Rx#:[id number] Piperacillin Sodium/ 150 100 Tazobact 3.375 gm In Sodium Chloride 0.9% 50 ml @ 100 mls/hr IV Q6HR [facility] Rx#:[id number] Tube Feeding 600 Other 600 200 Output: Urine 1200 1200 Other: # Bowel Movements 0 3 Active Medications: Current Medications Acetaminophen (Tylenol 650mg Supp) 650 mg RC Q4H PRN PRN Reason: Fever > 101 Stop: 03/10/17 13:04 Last Admin: 01/12/17 03:37 Dose: 650 mg Albuterol/Ipratropium (Duoneb Neb) 3 ml HHN Q4HRT [facility] Stop: 03/11/17 14:59 Last Admin: 01/17/17 11:18 Dose: 3 ml Albuterol/Ipratropium (Duoneb Neb) 3 ml HHN Q2HRT PRN PRN Reason: Wheezing Stop: 03/11/17 13:46 Artificial Tears (Artificial Tears Ophth Soln) 1 drop EACH EYE BID [facility] Stop: 03/08/17 08:59 Last Admin: 01/17/17 09:59 Dose: 1 drop Ascorbic Acid (Vitamin C) 500 mg PO DAILY [facility] Stop: 03/08/17 08:59 Last Admin: 01/17/17 09:49 Dose: 500 mg Aspirin (Aspirin Chewable) 81 mg PO DAILY [facility] Stop: 03/13/17 08:59 Last Admin: 01/17/17 09:48 Dose: 81 mg Atorvastatin Calcium (Lipitor) 20 mg PO DAILY [facility] PRN Reason: Protocol Stop: 03/12/17 16:29 Last Admin: 01/17/17 09:49 Dose: 20 mg Atropine Sulfate (Atropine Syringe) 1 mg IVP Q4HR PRN PRN Reason: HR BELOW 40 Stop: 03/09/17 08:32 Last Admin: 01/09/17 01:00 Dose: 1 mg Bisacodyl (Dulcolax 10 Mg Supp) 10 mg RC HS [facility] Stop: 03/14/17 20:59 Last Admin: 01/16/17 21:47 Dose: 10 mg Calcium/Vitamin D (Oscal W/Vitamin D) 1 tab PO DAILY [facility] Stop: 03/08/17 08:59 Last Admin: 01/17/17 09:48 Dose: 1 tab Cyanocobalamin (Vitamin B12) 500 mcg PO DAILY [facility] Stop: 03/08/17 08:59 Last Admin: 01/17/17 09:49 Dose: 500 mcg Diltiazem HCl (Cardizem) 20 mg IVP Q4HR PRN PRN Reason: FOR HR>130 Stop: 03/13/17 03:53 Last Admin: 01/12/17 20:50 Dose: 20 mg Docusate Sodium (Colace) 100 mg PO DAILY [facility] Stop: 03/08/17 08:59 Last Admin: 01/17/17 09:49 Dose: 100 mg Piperacillin Sod/Tazobactam (Sod 3.375 gm/ Sodium Chloride) 50 mls @ 100 mls/ hr IV Q6HR [facility] Stop: 03/13/17 08:49 Last Admin: 01/17/17 11:45 Dose: 100 mls/hr Levetiracetam (Keppra Pb) 500 mg in 100 mls @ 400 mls/hr IV Q12HR@0900,2100 [facility] Stop: 03/13/17 10:29 Last Admin: 01/17/17 09:48 Dose: 400 mls/hr Insulin Aspart (Novolog Insulin Sliding Scale) 2 - 12 units SUBQ ACHS [facility] PRN Reason: Protocol Stop: 03/16/17 20:59 Last Admin: 01/17/17 11:56 Dose: Not Given Lorazepam (Ativan) 1 mg IVP Q4HR PRN; Protocol PRN Reason: Seizure Stop: 03/15/17 09:07 Methylprednisolone Sodium Succinate (Solu-Medrol) 60 mg IVP Q12HR [facility] Stop: 03/16/17 08:59 Last Admin: 01/17/17 09:47 Dose: 60 mg Mineral Oil (Fleet Mineral Oil) 135 ml RC DAILY PRN PRN Reason: CONSTIPATION Stop: 03/13/17 12:59 Last Admin: 01/14/17 10:49 Dose: 135 ml Mineral Oil (Mineral Oil 30 Ml) 30 ml NG Q6HR [facility] Stop: 03/15/17 11:59 Last Admin: 01/17/17 11:45 Dose: 30 ml Miscellaneous (Vte Chemical Prophylaxis Screen/ Admission) 1 ea PRN PRN PRN Reason: PROTOCOL Stop: 03/08/17 11:10 Miscellaneous (Zosyn Iv Per Pharmacy) 1 ea PRN PRN PRN Reason: PROTOCOL Stop: 03/13/17 08:34 Miscellaneous (Probiotic Screen) 1 ea PRN PRN PRN Reason: PROTOCOL Stop: 03/13/17 13:54 Polyethylene Glycol (Miralax) 17 gm PO BID [facility] Stop: 03/14/17 16:59 Last Admin: 01/17/17 09:48 Dose: 17 gm Polyethylene Glycol/Electrolytes (Golytely) 4,000 ml PO X1 ONE Stop: 01/17/17 13:01 Potassium Chloride (Klor-Con) 20 meq PO DAILY [facility] Stop: 03/08/17 08:59 Last Admin: 01/17/17 09:58 Dose: 20 meq General: Alert, No acute distress HEENT: Atraumatic, PERRLA, EOMI Neck: Supple Cardiovascular: Regular rate, Normal S1, Normal S2 Lungs: Other (wheezing,) Abdomen: Bowel sounds, Soft, Other (non tender, no guarding, no rebound) Extremities: no Clubbing, no Cyanosis, no Edema Assessment/Plan - Problem List Patient Problems: All Active Problems Constipation (Acute) K59.00 Dementia (Acute) F03.90 Facial twitching (Acute) G51.4 Hypocalcemia (Acute) E83.51 Hypokalemia (Acute) E87.6 Hypomagnesemia (Acute) E83.42 Hypophosphatemia (Acute) E83.39 Ileus (Acute) K56.7 Leukocytosis (Acute) D72.829 Multiple sclerosis (Acute) G35 Seizure disorder (Acute) G40.909 Sinus bradycardia (Acute) R00.1 - Assessment Assessment: 76 YO MALE WITH CONSTIPATION RELIEVED USING LAXATIVES MRCP SHOWED NO DILATATION OF THE CBD BUT THERE WAS A GALLSTONE LFTS ARE NORMAL ERCP DEFERRED FOR LACK OF SYMPTOMS, NO BIOCHEMICAL EVIDENCE OF CHOLESTASIS, AND PT'S COMORBIDITIES 1.CONT LAXATIVES 2.CONSIDER CAROLEE IF GALLSTONES BECOME SYMPTOMATIC 3.GET BARIUM ENEMA ONCE CLEANED OUT
--- NOTE | 2017-01-17 15:38 | Diagnostic Imaging Report ---
Portable chest x-ray HISTORY: Nasogastric tube placement, shortness of breath Compared with prior exam of January 16, 2017, a nasogastric tube extends into the stomach. There is a poor inspiration. No focal pulmonary processes. Again noted are markedly dilated bowel loops in the upper abdomen. IMPRESSION: 1. Nasogastric tube extending into the stomach 2. No focal pulmonary processes 3. Markedly dilated air-filled bowel loops within the upper abdomen.
[2017-01-17] MEDS: 0.9% NS w/20 mEq KCL 1,000 ML IV SCH (20:26)
[2017-01-18] MEDS: Albuterol/Ipratropium Neb 3 ML AERS HHN SCH ×6 (03:13→22:38)
[2017-01-18 06:20] LABS: HEMATOCRIT 35.7 % (41.0-60); HEMOGLOBIN 12.2 gm/dL (12-16); MEAN CELL VOLUME 95.8 fl (80-99); MEAN CORPUSCULAR HEMOGLOBIN 32.8 pg (27.0-31.0); MEAN CORPUSCULAR HGB CONC 34.2 pg (28.0-36.0); MEAN PLATELET VOLUME 8.7 fl; NEUTROPHILE ABSOLUTE 16.6 Th/cmm (1.8-8.0); PLATELET COUNT 139 Th/cmm (150-400); RED BLOOD COUNT 3.73 Mil/cmm (3.80-5.80); RED CELL DISTRIBUTION WIDTH 13.2 % (11.5-20.0)
[2017-01-18 06:23] LABS: WHITE BLOOD COUNT 17.6 Th/cmm (4.8-10.8)
[2017-01-18 06:36] LABS: BUN - UREA NITROGEN 18 mg/dL (7-25); CHLORIDE 102 mEq/L (98-107); CREATININE - SERUM 0.6 mg/dL (0.7-1.3); GLUCOSE 116 mg/dL (70-105); SODIUM SERUM 135 mEq/L (136-145)
[2017-01-18 07:09] LABS: BAND NEUTROPHILE 6 % (0-10); NEUTROPHILS 88 % (40-80); TOTAL CELLS COUNTED 100
--- NOTE | 2017-01-18 08:13 | General Progress Note ---
Subjective - Review of Systems Service Date: 01/18/17 Subjective: Patient is now having BM's. currently NPO due to risk for aspiration. Patient slightly congested. given breathing treatment. Objective - Results Result Diagrams: 01/18/17 05:37 01/18/17 05:37 Recent Labs: Laboratory Last Values WBC 17.6 Th/cmm (4.8-10.8) H 01/18/17 05:37 RBC 3.73 Mil/cmm (3.80-5.80) L 01/18/17 05:37 Hgb 12.2 gm/dL (12-16) 01/18/17 05:37 Hct 35.7 % (41.0-60) L 01/18/17 05:37 MCV 95.8 fl (80-99) 01/18/17 05:37 MCH 32.8 pg (27.0-31.0) H 01/18/17 05:37 MCHC Differential 34.2 pg (28.0-36.0) 01/18/17 05:37 RDW 13.2 % (11.5-20.0) 01/18/17 05:37 Plt Count 139 Th/cmm (150-400) L 01/18/17 05:37 MPV 8.7 fl 01/18/17 05:37 Neutrophils % FRONT LINE SUPERVISOR 01/18/17 05:37 Band Neutrophils % 6 % (0-10) 01/18/17 05:37 Lymphocytes % FRONT LINE SUPERVISOR 01/18/17 05:37 Monocytes % FRONT LINE SUPERVISOR 01/18/17 05:37 Eosinophils % FRONT LINE SUPERVISOR 01/18/17 05:37 Basophils % FRONT LINE SUPERVISOR 01/18/17 05:37 Neutrophils (Manual) 88 % (40-80) H 01/18/17 05:37 Lymphocytes 4 % (20-50) L 01/18/17 05:37 Monocytes 2 % (2-10) 01/18/17 05:37 Eosinophils 0 % (0-5) 01/13/17 04:08 Basophils 0 % (0-3) 01/13/17 04:08 Platelet Estimate ADEQUATE (NORMAL) 01/13/17 04:08 Platelet Morphology NORMAL (NORMAL) 01/13/17 04:08 Anisocytosis 1+ 01/06/17 12:32 RBC Morph Micro Appear NORMAL (NORMAL) 01/13/17 04:08 PT 12.9 SECONDS (9.5-11.5) H 01/06/17 10:50 INR 1.23 (0.5-1.4) 01/06/17 10:50 PTT (Actin FS) 37.0 SECONDS (26.0-38.0) 01/06/17 10:50 Sodium 135 mEq/L (136-145) L 01/18/17 05:37 Potassium 4.0 mEq/L (3.5-5.1) 01/18/17 05:37 Chloride 102 mEq/L (98-107) 01/18/17 05:37 Carbon Dioxide 30.0 mEq/L (21.0-31.0) 01/18/17 05:37 Anion Gap 7.0 (7.0-16.0) 01/18/17 05:37 BUN 18 mg/dL (7-25) 01/18/17 05:37 Creatinine 0.6 mg/dL (0.7-1.3) L 01/18/17 05:37 Est GFR ( Amer) TNP 01/18/17 05:37 Est GFR (Non-Af Amer) TNP 01/18/17 05:37 BUN/Creatinine Ratio 30.0 01/18/17 05:37 Glucose 116 mg/dL (70-105) H 01/18/17 05:37 POC Glucose 111 MG/DL (70 - 105) H 01/18/17 05:05 Hemoglobin A1c % 5.7 % (4.0-6.0) 01/14/17 09:07 Whole Bld Lactic Acid 0.95 mmol/L (0.60-1.99) 01/06/17 10:53 Calcium 8.0 mg/dL (8.6-10.3) L 01/18/17 05:37 Phosphorus 2.2 mg/dL (2.5-5.0) L 01/16/17 05:00 Magnesium 2.3 mg/dL (1.9-2.7) 01/15/17 04:50 Total Bilirubin 0.7 mg/dL (0.3-1.0) 01/17/17 08:50 AST 14 U/L (13-39) 01/17/17 08:50 ALT 16 U/L (7-52) 01/17/17 08:50 Alkaline Phosphatase 50 U/L (34-104) 01/17/17 08:50 Creatine Kinase 52 U/L (30-223) 01/06/17 10:50 Total Protein 4.6 gm/dL (6.0-8.3) L 01/17/17 08:50 Albumin 2.5 gm/dL (4.2-5.5) L 01/17/17 08:50 Globulin 2.1 gm/dL 01/17/17 08:50 Albumin/Globulin Ratio 1.2 (1.0-1.8) 01/17/17 08:50 Triglycerides 343 mg/dL (<150) H 01/11/17 09:15 Cholesterol 163 mg/dL (<200) 01/11/17 09:15 LDL Cholesterol Direct 82 mg/dL (75-193) 01/11/17 09:15 HDL Cholesterol 46 mg/dL (23-92) 01/11/17 09:15 TSH 0.39 uIU/ml (0.34-5.60) 01/06/17 11:59 PTH Intact 31 pg/mL (15-65) 01/06/17 12:09 Urine Source RAE PORT 01/15/17 14:00 Urine Color YELLOW 01/15/17 14:00 Urine Clarity SLIGHT CLOUDY (CLEAR) 01/15/17 14:00 Urine pH 6.0 (4.6 - 8.0) 01/15/17 14:00 Ur Specific [place] 1.020 (1.005-1.030) 01/15/17 14:00 Urine Protein NEGATIVE mg/dL (NEGATIVE) 01/15/17 14:00 Urine Glucose (UA) >=1000 mg/dL (NEGATIVE) H 01/15/17 14:00 Urine Ketones NEGATIVE mg/dL (NEGATIVE) 01/15/17 14:00 Urine Blood MODERATE (NEGATIVE) H 01/15/17 14:00 Urine Nitrate NEGATIVE (NEGATIVE) 01/15/17 14:00 Urine Bilirubin NEGATIVE (NEGATIVE) 01/15/17 14:00 Urine Urobilinogen 0.2 E.U./dL (0.2 - 1.0) 01/15/17 14:00 Ur Leukocyte Esterase NEGATIVE (NEGATIVE) 01/15/17 14:00 Urine RBC 10-25 /hpf (0-5) H 01/15/17 14:00 Urine WBC 2-5 /hpf (0-5) H 01/15/17 14:00 Ur Epithelial Cells FEW /lpf (FEW) 01/15/17 14:00 Amorphous Sediment MODERATE URATES (NONE SEEN) 01/11/17 16:00 Urine Bacteria FEW /hpf (NONE SEEN) 01/15/17 14:00 Fine Granular Casts 0-2 /lpf (NONE SEEN) H 01/11/17 16:00 Urine Mucus FEW /lpf (FEW) 01/15/17 14:00 Urine Yeast FEW /hpf (NONE SEEN) H 01/11/17 16:00 Vancomycin Trough 7.3 ug/mL (10-20) L 01/14/17 08:05 - Physical Exam Vitals and I&O: Vital Signs Temp 99.2 F 01/18/17 07:39 Pulse 70 01/18/17 07:39 Resp 19 01/18/17 07:39 BP 119/72 01/18/17 07:39 Pulse Ox 88 01/18/17 07:39 Intake & Output 01/17/17 01/18/17 01/18/17 18:59 06:59 18:59 Intake Total 250 3050 Output Total 1205 1500 Balance -955 1550 Weight (lbs) 68.492 kg 68.946 kg Intake: Intake, IV Amount 200 50 Levetiracetam 500mg/100mL 100 500 mg In 100 ml @ 400 mls/hr IV Q12HR@0900,2100 [facility] Rx#:[id number] Piperacillin Sodium/ 100 50 Tazobact 3.375 gm In Sodium Chloride 0.9% 50 ml @ 100 mls/hr IV Q6HR [facility] Rx#:[id number] Oral 50 Other 3000 Output: Gastric Drainage 5 Urine 1200 1500 Other: # Bowel Movements 1 Stool Characteristics Soft Soft Active Medications: Current Medications Acetaminophen (Tylenol 650mg Supp) 650 mg RC Q4H PRN PRN Reason: Fever > 101 Stop: 03/10/17 13:04 Last Admin: 01/12/17 03:37 Dose: 650 mg Albuterol/Ipratropium (Duoneb Neb) 3 ml HHN Q4HRT [facility] Stop: 03/11/17 14:59 Last Admin: 01/18/17 07:20 Dose: 3 ml Albuterol/Ipratropium (Duoneb Neb) 3 ml HHN Q2HRT PRN PRN Reason: Wheezing Stop: 03/11/17 13:46 Artificial Tears (Artificial Tears Ophth Soln) 1 drop EACH EYE BID [facility] Stop: 03/08/17 08:59 Last Admin: 01/17/17 16:56 Dose: 1 drop Ascorbic Acid (Vitamin C) 500 mg PO DAILY [facility] Stop: 03/08/17 08:59 Last Admin: 01/17/17 09:49 Dose: 500 mg Aspirin (Aspirin Chewable) 81 mg PO DAILY [facility] Stop: 03/13/17 08:59 Last Admin: 01/17/17 09:48 Dose: 81 mg Atorvastatin Calcium (Lipitor) 20 mg PO DAILY [facility] PRN Reason: Protocol Stop: 03/12/17 16:29 Last Admin: 01/17/17 09:49 Dose: 20 mg Atropine Sulfate (Atropine Syringe) 1 mg IVP Q4HR PRN PRN Reason: HR BELOW 40 Stop: 03/09/17 08:32 Last Admin: 01/09/17 01:00 Dose: 1 mg Bisacodyl (Dulcolax 10 Mg Supp) 10 mg RC HS [facility] Stop: 03/14/17 20:59 Last Admin: 01/17/17 22:00 Dose: 10 mg Calcium/Vitamin D (Oscal W/Vitamin D) 1 tab PO DAILY [facility] Stop: 03/08/17 08:59 Last Admin: 01/17/17 09:48 Dose: 1 tab Cyanocobalamin (Vitamin B12) 500 mcg PO DAILY [facility] Stop: 03/08/17 08:59 Last Admin: 01/17/17 09:49 Dose: 500 mcg Diltiazem HCl (Cardizem) 20 mg IVP Q4HR PRN PRN Reason: FOR HR>130 Stop: 03/13/17 03:53 Last Admin: 01/12/17 20:50 Dose: 20 mg Docusate Sodium (Colace) 100 mg PO DAILY [facility] Stop: 03/08/17 08:59 Last Admin: 01/17/17 09:49 Dose: 100 mg Piperacillin Sod/Tazobactam (Sod 3.375 gm/ Sodium Chloride) 50 mls @ 100 mls/ hr IV Q6HR [facility] Stop: 03/13/17 08:49 Last Admin: 01/18/17 05:38 Dose: 100 mls/hr Levetiracetam (Keppra Pb) 500 mg in 100 mls @ 400 mls/hr IV Q12HR@0900,2100 [facility] Stop: 03/13/17 10:29 Last Admin: 01/17/17 22:00 Dose: 400 mls/hr Potassium Chloride/Sodium Chloride (0.9% Ns W/20 Meq Kcl) 1,000 mls @ 50 mls/ hr IV .Q20H [facility] Stop: 03/18/17 19:27 Last Admin: 01/17/17 20:26 Dose: 50 mls/hr Insulin Aspart (Novolog Insulin Sliding Scale) 2 - 12 units SUBQ ACHS [facility] PRN Reason: Protocol Stop: 03/16/17 20:59 Last Admin: 01/17/17 22:00 Dose: Not Given Lorazepam (Ativan) 1 mg IVP Q4HR PRN; Protocol PRN Reason: Seizure Stop: 03/15/17 09:07 Methylprednisolone Sodium Succinate (Solu-Medrol) 60 mg IVP Q12HR [facility] Stop: 03/16/17 08:59 Last Admin: 01/17/17 22:00 Dose: 60 mg Mineral Oil (Fleet Mineral Oil) 135 ml RC DAILY PRN PRN Reason: CONSTIPATION Stop: 03/13/17 12:59 Last Admin: 01/14/17 10:49 Dose: 135 ml Mineral Oil (Mineral Oil 30 Ml) 30 ml NG Q6HR [facility] Stop: 03/15/17 11:59 Last Admin: 01/18/17 05:40 Dose: 30 ml Miscellaneous (Vte Chemical Prophylaxis Screen/ Admission) 1 ea PRN PRN PRN Reason: PROTOCOL Stop: 03/08/17 11:10 Miscellaneous (Zosyn Iv Per Pharmacy) 1 ea PRN PRN PRN Reason: PROTOCOL Stop: 03/13/17 08:34 Miscellaneous (Probiotic Screen) 1 ea PRN PRN PRN Reason: PROTOCOL Stop: 03/13/17 13:54 Polyethylene Glycol (Miralax) 17 gm PO BID [facility] Stop: 03/14/17 16:59 Last Admin: 01/17/17 17:04 Dose: Not Given Potassium Chloride (Klor-Con) 20 meq PO DAILY [facility] Stop: 03/08/17 08:59 Last Admin: 01/17/17 09:58 Dose: 20 meq General: Alert, No acute distress HEENT: Atraumatic, PERRLA, EOMI Neck: Supple Cardiovascular: Regular rate, Normal S1, Normal S2 Lungs: Other (wheezing,) Abdomen: Bowel sounds, Soft, Other (non tender, no guarding, no rebound) Extremities: no Clubbing, no Cyanosis, no Edema Assessment/Plan - Problem List Patient Problems: All Active Problems Constipation (Acute) K59.00 Dementia (Acute) F03.90 Facial twitching (Acute) G51.4 Hypocalcemia (Acute) E83.51 Hypokalemia (Acute) E87.6 Hypomagnesemia (Acute) E83.42 Hypophosphatemia (Acute) E83.39 Ileus (Acute) K56.7 Leukocytosis (Acute) D72.829 Multiple sclerosis (Acute) G35 Seizure disorder (Acute) G40.909 Sinus bradycardia (Acute) R00.1 - Assessment Assessment: ALOC ... improved. CT head NAD, CT carotid no significant stenosis. hypotensive ... improved. will continue IV fluid support. hypernatremia Na 156+ hypokalemia ... will change fluids to D5 1/2NS @ 75cc/hr. add KCL to fluids. . Electrolyte imbalance ... will continue to monitor daily and correct as needed. 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 for carotid duplex, results pending. Leukocytosis improved ... continue Vancomycin IV and Zosyn IV per pharmacy. MS acute exacerbation ... stable. Patient to continue steroids IV. Ileus vs SBO .... keep NPO. continue IV fluids. will order KUB for today. cardiac arrhythmia ... continue anti-arrythmics per Cardiology Seizure disorder ... on Keppra UTI +Pseudomonas ... continue current IV antibiotics. Hyperglycemia ... will decrease solumedrol. dc D5W. - Plan Plan: ALOC ... improved. CT head NAD, CT carotid NAD. hypotensive ... improved. will continue IV fluid support. hypernatremia Na 156+ hypokalemia ... will change fluids to D5 1/2NS @ 75cc/hr. add KCL to fluids. check CMP,Mg,Phos,Ca tomorrow. Electrolyte imbalance ... will continue to monitor daily and correct as needed. CVA per MRI head ... management per Dr. Franklin. patient on Heparin drip. for carotid duplex. Leukocytosis improved ... WBC's 10K ... DC Rocephin. Will start Vancomycin IV and Zosyn IV per pharmacy MS acute exacerbation ... stable. Patient to continue steroids IV please see neurology consult, CT head neg, constipation ... continue current treatment per GI. cardiac arrhythmia ... continue treatment per Cardiology Nutritional Asmnt/Malnutr-PDOC - Dietary Evaluation Malnutrition Findings (Please click <Entered> for more info): Nutritional Asmnt/Malnutrition Start: 01/08/17 12: 55 Text: Status: Complete Freq: Document 01/08/17 12:56 GSUN (Rec: 01/08/17 13:16 [id number]) Nutritional Asmnt/Malnutrition Patient General Information Nutritional Screening Consult Diagnosis ALOC, acute MS exacerbation Pertinent Medical Hx/Surgical Hx Dementia, multiple sclerosis, constipation Subjective Information 76 year old male from SNF. RD consult for laura Huntley. Per RN notes, facial twitching on adm, currently NPO with swallow eval pending. Pt was awake during visit, followed RD with eyes, did not provide any information. Mild wasting to chest noted, loose skin to arms. Current Diet Order/ Nutrition Support NPO Pertinent Medications Vitamin C, Oscal W/Vitamin D, Vitamin B12, D5-0.45ns, Dulcolax, Colace Pertinent Labs 01/08: reviewed. Glucose 148H Nutritional Hx/Data Height 1.85 m Height (Calculated Centimeters) 185.4 Current Weight (lbs) 69.49 kg Weight (Calculated Kilograms) 69.5 Weight (Calculated Grams) 60493.4 [place] Body Weight 184 Weight Status Approriate GI Symptoms Usual diet at home [facility]: pureed, large portion lunch and dinner, 4oz house supplement Skin Integrity/Comment: Audi 12. Pressure area r foot and upper back, abrasion l knee and r leg Estimated Nutritional Goals BEE in Kcals: Using Current wt Calories/Kcals/Kg IBW 184lb/83.6kg with consideration skin integrity and BMI Kcals Calculated 2090-2508kcal (25-30kcal/kg) Protein: Using Current wt Protein Calculated 84-109g (1-1.3g/kg) Fluid: ml 2090-2508ml (1ml/kcal) Nutritional Problem 2. 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 Recommend regular diet, diet texture per swallow eval (pending). SNF order pureed. Expected Outcomes/Goals Expected Outcomes/Goals 1. PO intake to meet at least 75% of estimated nutritional needs.
[2017-01-18] MEDS: Aspirin 81mg Chewable Tab PO SCH (09:05)
[2017-01-18] MEDS: Atorvastatin Calcium 10 MG TAB PO SCH (09:05)
[2017-01-18] MEDS: Multivitamin w/ Minerals Tab PO SCH (09:06)
[2017-01-18] MEDS: Potassium Chloride 20 mEq ER Tab PO SCH (09:06)
[2017-01-18] MEDS: Levetiracetam 500mg/100mL 500 MG/100 ML BAG IV SCH ×2 (09:07→20:24)
[2017-01-18] MEDS: Calcium Carb/Vit D 500 mg/200 U Tab PO SCH (09:08)
[2017-01-18] MEDS: INSULIN ASPART SLIDING SCALE 100 UNITS/ML UNIT SUBQ SCH ×4 (09:09→20:25)
[2017-01-18] MEDS: POLYETHYLENE GLYCOL 3350 17 GM PACK PO SCH ×2 (09:10→17:22)
[2017-01-18] MEDS: Polyvinyl Alcohol Ophth Soln 15 mL Bottle EACH EYE SCH ×2 (09:10→17:26)
--- NOTE | 2017-01-18 13:58 | Diagnostic Imaging Report ---
KUB single view HISTORY: Abdominal pain. Constipation assessment for barium enema procedure COMPARISON: KUB on 01/17/2017 FINDINGS: Distal fecal impaction is again noted with diffuse gaseous distended loops of bowel. NG tube is seen with tip in the stomach. No gross free air identified. IMPRESSION: Persistent distal fecal impaction with diffuse proximal gaseous distended loops of bowel. Barium enema has been deferred until proper bowel preparation.
[2017-01-18] MEDS ORDERED: Fleet Enema 135 mL RC ONE (14:29)
--- NOTE | 2017-01-18 14:29 | GI Progress Note ---
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 Objective - Results Result Diagrams: 01/18/17 05:37 01/18/17 05:37 Recent Labs: Laboratory Last Values WBC 17.6 Th/cmm (4.8-10.8) H 01/18/17 05:37 RBC 3.73 Mil/cmm (3.80-5.80) L 01/18/17 05:37 Hgb 12.2 gm/dL (12-16) 01/18/17 05:37 Hct 35.7 % (41.0-60) L 01/18/17 05:37 MCV 95.8 fl (80-99) 01/18/17 05:37 MCH 32.8 pg (27.0-31.0) H 01/18/17 05:37 MCHC Differential 34.2 pg (28.0-36.0) 01/18/17 05:37 RDW 13.2 % (11.5-20.0) 01/18/17 05:37 Plt Count 139 Th/cmm (150-400) L 01/18/17 05:37 MPV 8.7 fl 01/18/17 05:37 Neutrophils % BALL ASSEMBLER 01/18/17 05:37 Band Neutrophils % 6 % (0-10) 01/18/17 05:37 Lymphocytes % BALL ASSEMBLER 01/18/17 05:37 Monocytes % BALL ASSEMBLER 01/18/17 05:37 Eosinophils % BALL ASSEMBLER 01/18/17 05:37 Basophils % BALL ASSEMBLER 01/18/17 05:37 Neutrophils (Manual) 88 % (40-80) H 01/18/17 05:37 Lymphocytes 4 % (20-50) L 01/18/17 05:37 Monocytes 2 % (2-10) 01/18/17 05:37 Eosinophils 0 % (0-5) 01/13/17 04:08 Basophils 0 % (0-3) 01/13/17 04:08 Platelet Estimate ADEQUATE (NORMAL) 01/13/17 04:08 Platelet Morphology NORMAL (NORMAL) 01/13/17 04:08 Anisocytosis 1+ 01/06/17 12:32 RBC Morph Micro Appear NORMAL (NORMAL) 01/13/17 04:08 PT 12.9 SECONDS (9.5-11.5) H 01/06/17 10:50 INR 1.23 (0.5-1.4) 01/06/17 10:50 PTT (Actin FS) 37.0 SECONDS (26.0-38.0) 01/06/17 10:50 Sodium 135 mEq/L (136-145) L 01/18/17 05:37 Potassium 4.0 mEq/L (3.5-5.1) 01/18/17 05:37 Chloride 102 mEq/L (98-107) 01/18/17 05:37 Carbon Dioxide 30.0 mEq/L (21.0-31.0) 01/18/17 05:37 Anion Gap 7.0 (7.0-16.0) 01/18/17 05:37 BUN 18 mg/dL (7-25) 01/18/17 05:37 Creatinine 0.6 mg/dL (0.7-1.3) L 01/18/17 05:37 Est GFR ( Amer) TNP 01/18/17 05:37 Est GFR (Non-Af Amer) TNP 01/18/17 05:37 BUN/Creatinine Ratio 30.0 01/18/17 05:37 Glucose 116 mg/dL (70-105) H 01/18/17 05:37 POC Glucose 89 MG/DL (70 - 105) 01/18/17 12:17 Hemoglobin A1c % 5.7 % (4.0-6.0) 01/14/17 09:07 Whole Bld Lactic Acid 0.95 mmol/L (0.60-1.99) 01/06/17 10:53 Calcium 8.0 mg/dL (8.6-10.3) L 01/18/17 05:37 Phosphorus 2.2 mg/dL (2.5-5.0) L 01/16/17 05:00 Magnesium 2.3 mg/dL (1.9-2.7) 01/15/17 04:50 Total Bilirubin 0.7 mg/dL (0.3-1.0) 01/17/17 08:50 AST 14 U/L (13-39) 01/17/17 08:50 ALT 16 U/L (7-52) 01/17/17 08:50 Alkaline Phosphatase 50 U/L (34-104) 01/17/17 08:50 Creatine Kinase 52 U/L (30-223) 01/06/17 10:50 B-Natriuretic Peptide 189.0 pg/mL (5.0-100.0) H 01/18/17 05:37 Total Protein 4.6 gm/dL (6.0-8.3) L 01/17/17 08:50 Albumin 2.5 gm/dL (4.2-5.5) L 01/17/17 08:50 Globulin 2.1 gm/dL 01/17/17 08:50 Albumin/Globulin Ratio 1.2 (1.0-1.8) 01/17/17 08:50 Triglycerides 343 mg/dL (<150) H 01/11/17 09:15 Cholesterol 163 mg/dL (<200) 01/11/17 09:15 LDL Cholesterol Direct 82 mg/dL (75-193) 01/11/17 09:15 HDL Cholesterol 46 mg/dL (23-92) 01/11/17 09:15 TSH 0.39 uIU/ml (0.34-5.60) 01/06/17 11:59 PTH Intact 31 pg/mL (15-65) 01/06/17 12:09 Urine Source RAE PORT 01/15/17 14:00 Urine Color YELLOW 01/15/17 14:00 Urine Clarity SLIGHT CLOUDY (CLEAR) 01/15/17 14:00 Urine pH 6.0 (4.6 - 8.0) 01/15/17 14:00 Ur Specific [place] 1.020 (1.005-1.030) 01/15/17 14:00 Urine Protein NEGATIVE mg/dL (NEGATIVE) 01/15/17 14:00 Urine Glucose (UA) >=1000 mg/dL (NEGATIVE) H 01/15/17 14:00 Urine Ketones NEGATIVE mg/dL (NEGATIVE) 01/15/17 14:00 Urine Blood MODERATE (NEGATIVE) H 01/15/17 14:00 Urine Nitrate NEGATIVE (NEGATIVE) 01/15/17 14:00 Urine Bilirubin NEGATIVE (NEGATIVE) 01/15/17 14:00 Urine Urobilinogen 0.2 E.U./dL (0.2 - 1.0) 01/15/17 14:00 Ur Leukocyte Esterase NEGATIVE (NEGATIVE) 01/15/17 14:00 Urine RBC 10-25 /hpf (0-5) H 01/15/17 14:00 Urine WBC 2-5 /hpf (0-5) H 01/15/17 14:00 Ur Epithelial Cells FEW /lpf (FEW) 01/15/17 14:00 Amorphous Sediment MODERATE URATES (NONE SEEN) 01/11/17 16:00 Urine Bacteria FEW /hpf (NONE SEEN) 01/15/17 14:00 Fine Granular Casts 0-2 /lpf (NONE SEEN) H 01/11/17 16:00 Urine Mucus FEW /lpf (FEW) 01/15/17 14:00 Urine Yeast FEW /hpf (NONE SEEN) H 01/11/17 16:00 Vancomycin Trough 7.3 ug/mL (10-20) L 01/14/17 08:05 - Physical Exam Vitals and I&O: Vital Signs Temp 98.8 F 01/18/17 11:49 Pulse 69 01/18/17 12:48 Resp 18 01/18/17 12:48 BP 130/76 01/18/17 11:49 Pulse Ox 92 01/18/17 12:48 Intake & Output 01/17/17 01/18/17 01/18/17 18:59 06:59 18:59 Intake Total 250 3150 Output Total 1205 1500 Balance -955 1650 Weight (lbs) 68.492 kg 68.946 kg Intake: Intake, IV Amount 200 150 Levetiracetam 500mg/100mL 100 100 500 mg In 100 ml @ 400 mls/hr IV Q12HR@0900,2100 [facility] Rx#:[id number] Piperacillin Sodium/ 100 50 Tazobact 3.375 gm In Sodium Chloride 0.9% 50 ml @ 100 mls/hr IV Q6HR [facility] Rx#:[id number] Oral 50 Other 3000 Output: Gastric Drainage 5 Urine 1200 1500 Other: # Bowel Movements 1 Stool Characteristics Soft Soft Liquid Active Medications: Current Medications Acetaminophen (Tylenol 650mg Supp) 650 mg RC Q4H PRN PRN Reason: Fever > 101 Stop: 03/10/17 13:04 Last Admin: 01/12/17 03:37 Dose: 650 mg Albuterol/Ipratropium (Duoneb Neb) 3 ml HHN Q4HRT [facility] Stop: 03/11/17 14:59 Last Admin: 01/18/17 12:41 Dose: 3 ml Albuterol/Ipratropium (Duoneb Neb) 3 ml HHN Q2HRT PRN PRN Reason: Wheezing Stop: 03/11/17 13:46 Artificial Tears (Artificial Tears Ophth Soln) 1 drop EACH EYE BID [facility] Stop: 03/08/17 08:59 Last Admin: 01/18/17 09:10 Dose: 1 drop Ascorbic Acid (Vitamin C) 500 mg PO DAILY [facility] Stop: 03/08/17 08:59 Last Admin: 01/18/17 09:06 Dose: 500 mg Aspirin (Aspirin Chewable) 81 mg PO DAILY [facility] Stop: 03/13/17 08:59 Last Admin: 01/18/17 09:05 Dose: 81 mg Atorvastatin Calcium (Lipitor) 20 mg PO DAILY LIZY PRN Reason: Protocol Stop: 03/12/17 16:29 Last Admin: 01/18/17 09:05 Dose: 20 mg Atropine Sulfate (Atropine Syringe) 1 mg IVP Q4HR PRN PRN Reason: HR BELOW 40 Stop: 03/09/17 08:32 Last Admin: 01/09/17 01:00 Dose: 1 mg Bisacodyl (Dulcolax 10 Mg Supp) 10 mg RC HS [facility] Stop: 03/14/17 20:59 Last Admin: 01/17/17 22:00 Dose: 10 mg Calcium/Vitamin D (Oscal W/Vitamin D) 1 tab PO DAILY [facility] Stop: 03/08/17 08:59 Last Admin: 01/18/17 09:08 Dose: 1 tab Cyanocobalamin (Vitamin B12) 500 mcg PO DAILY [facility] Stop: 03/08/17 08:59 Last Admin: 01/18/17 09:05 Dose: 500 mcg Diltiazem HCl (Cardizem) 20 mg IVP Q4HR PRN PRN Reason: FOR HR>130 Stop: 03/13/17 03:53 Last Admin: 01/12/17 20:50 Dose: 20 mg Docusate Sodium (Colace) 100 mg PO DAILY [facility] Stop: 03/08/17 08:59 Last Admin: 01/18/17 09:06 Dose: 100 mg Levetiracetam (Keppra Pb) 500 mg in 100 mls @ 400 mls/hr IV Q12HR@0900,2100 [facility] Stop: 03/13/17 10:29 Last Admin: 01/18/17 09:07 Dose: 400 mls/hr Potassium Chloride/Sodium Chloride (0.9% Ns W/20 Meq Kcl) 1,000 mls @ 50 mls/ hr IV .Q20H [facility] Stop: 03/18/17 19:27 Last Admin: 01/17/17 20:26 Dose: 50 mls/hr Gentamicin Sulfate 140 mg/ (Sodium Chloride) 103.5 mls @ 100 mls/hr IV Q12H [facility] Stop: 03/19/17 10:59 Last Admin: 01/18/17 12:18 Dose: 100 mls/hr Insulin Aspart (Novolog Insulin Sliding Scale) 2 - 12 units SUBQ ACHS [facility]ZY PRN Reason: Protocol Stop: 03/16/17 20:59 Last Admin: 01/18/17 12:19 Dose: Not Given Lorazepam (Ativan) 1 mg IVP Q4HR PRN; Protocol PRN Reason: Seizure Stop: 03/15/17 09:07 Methylprednisolone Sodium Succinate (Solu-Medrol) 60 mg IVP Q12HR [facility] Stop: 03/16/17 08:59 Last Admin: 01/18/17 09:07 Dose: 60 mg Mineral Oil (Fleet Mineral Oil) 135 ml RC DAILY PRN PRN Reason: CONSTIPATION Stop: 03/13/17 12:59 Last Admin: 01/14/17 10:49 Dose: 135 ml Mineral Oil (Mineral Oil 30 Ml) 30 ml NG Q6HR [facility] Stop: 03/15/17 11:59 Last Admin: 01/18/17 12:19 Dose: 30 ml Miscellaneous (Vte Chemical Prophylaxis Screen/ Admission) 1 ea PRN PRN PRN Reason: PROTOCOL Stop: 03/08/17 11:10 Miscellaneous (Probiotic Screen) 1 ea PRN PRN PRN Reason: PROTOCOL Stop: 03/13/17 13:54 Miscellaneous (Gentamicin Iv Per Pharmacy) 1 ea PRN PRN PRN Reason: PROTOCOL Stop: 03/19/17 08:25 Polyethylene Glycol (Miralax) 17 gm PO BID [facility] Stop: 03/14/17 16:59 Last Admin: 01/18/17 09:10 Dose: 17 gm Potassium Chloride (Klor-Con) 20 meq PO DAILY [facility] Stop: 03/08/17 08:59 Last Admin: 01/18/17 09:06 Dose: 20 meq General: Alert, No acute distress HEENT: Atraumatic, PERRLA, EOMI Neck: Supple Cardiovascular: Regular rate, Normal S1, Normal S2 Lungs: Other (wheezing,) Abdomen: Bowel sounds, Soft, Other (non tender, no guarding, no rebound) Extremities: no Clubbing, no Cyanosis, no Edema Assessment/Plan - Problem List Patient Problems: All Active Problems Constipation (Acute) K59.00 Dementia (Acute) F03.90 Facial twitching (Acute) G51.4 Hypocalcemia (Acute) E83.51 Hypokalemia (Acute) E87.6 Hypomagnesemia (Acute) E83.42 Hypophosphatemia (Acute) E83.39 Ileus (Acute) K56.7 Leukocytosis (Acute) D72.829 Multiple sclerosis (Acute) G35 Seizure disorder (Acute) G40.909 Sinus bradycardia (Acute) R00.1 - Assessment Assessment: 76 YO MALE WITH CONSTIPATION RELIEVED USING LAXATIVES MRCP SHOWED NO DILATATION OF THE CBD BUT THERE WAS A GALLSTONE LFTS ARE NORMAL ERCP DEFERRED FOR LACK OF SYMPTOMS, NO BIOCHEMICAL EVIDENCE OF CHOLESTASIS, AND PT'S COMORBIDITIES 1.CONT LAXATIVES 2.CONSIDER CAROLEE IF GALLSTONES BECOME SYMPTOMATIC 3.GET BARIUM ENEMA ONCE CLEANED OUT
--- NOTE | 2017-01-18 15:10 | Infectious Disease Prog Note ---
Infectious Disease Subjective - Review of Systems Service Date: 01/18/17 Subjective: There is no new change, there is no fever. Doing better. Infectious Disease Objective - Results Result Diagrams: 01/18/17 05:37 01/18/17 05:37 Recent Labs: Laboratory Last Values WBC 17.6 Th/cmm (4.8-10.8) H 01/18/17 05:37 RBC 3.73 Mil/cmm (3.80-5.80) L 01/18/17 05:37 Hgb 12.2 gm/dL (12-16) 01/18/17 05:37 Hct 35.7 % (41.0-60) L 01/18/17 05:37 MCV 95.8 fl (80-99) 01/18/17 05:37 MCH 32.8 pg (27.0-31.0) H 01/18/17 05:37 MCHC Differential 34.2 pg (28.0-36.0) 01/18/17 05:37 RDW 13.2 % (11.5-20.0) 01/18/17 05:37 Plt Count 139 Th/cmm (150-400) L 01/18/17 05:37 MPV 8.7 fl 01/18/17 05:37 Neutrophils % SEROLOGY TECHNICIAN 01/18/17 05:37 Band Neutrophils % 6 % (0-10) 01/18/17 05:37 Lymphocytes % SEROLOGY TECHNICIAN 01/18/17 05:37 Monocytes % SEROLOGY TECHNICIAN 01/18/17 05:37 Eosinophils % SEROLOGY TECHNICIAN 01/18/17 05:37 Basophils % SEROLOGY TECHNICIAN 01/18/17 05:37 Neutrophils (Manual) 88 % (40-80) H 01/18/17 05:37 Lymphocytes 4 % (20-50) L 01/18/17 05:37 Monocytes 2 % (2-10) 01/18/17 05:37 Eosinophils 0 % (0-5) 01/13/17 04:08 Basophils 0 % (0-3) 01/13/17 04:08 Platelet Estimate ADEQUATE (NORMAL) 01/13/17 04:08 Platelet Morphology NORMAL (NORMAL) 01/13/17 04:08 Anisocytosis 1+ 01/06/17 12:32 RBC Morph Micro Appear NORMAL (NORMAL) 01/13/17 04:08 PT 12.9 SECONDS (9.5-11.5) H 01/06/17 10:50 INR 1.23 (0.5-1.4) 01/06/17 10:50 PTT (Actin FS) 37.0 SECONDS (26.0-38.0) 01/06/17 10:50 Sodium 135 mEq/L (136-145) L 01/18/17 05:37 Potassium 4.0 mEq/L (3.5-5.1) 01/18/17 05:37 Chloride 102 mEq/L (98-107) 01/18/17 05:37 Carbon Dioxide 30.0 mEq/L (21.0-31.0) 01/18/17 05:37 Anion Gap 7.0 (7.0-16.0) 01/18/17 05:37 BUN 18 mg/dL (7-25) 01/18/17 05:37 Creatinine 0.6 mg/dL (0.7-1.3) L 01/18/17 05:37 Est GFR ( Amer) TNP 01/18/17 05:37 Est GFR (Non-Af Amer) TNP 01/18/17 05:37 BUN/Creatinine Ratio 30.0 01/18/17 05:37 Glucose 116 mg/dL (70-105) H 01/18/17 05:37 POC Glucose 89 MG/DL (70 - 105) 01/18/17 12:17 Hemoglobin A1c % 5.7 % (4.0-6.0) 01/14/17 09:07 Whole Bld Lactic Acid 0.95 mmol/L (0.60-1.99) 01/06/17 10:53 Calcium 8.0 mg/dL (8.6-10.3) L 01/18/17 05:37 Phosphorus 2.2 mg/dL (2.5-5.0) L 01/16/17 05:00 Magnesium 2.3 mg/dL (1.9-2.7) 01/15/17 04:50 Total Bilirubin 0.7 mg/dL (0.3-1.0) 01/17/17 08:50 AST 14 U/L (13-39) 01/17/17 08:50 ALT 16 U/L (7-52) 01/17/17 08:50 Alkaline Phosphatase 50 U/L (34-104) 01/17/17 08:50 Creatine Kinase 52 U/L (30-223) 01/06/17 10:50 B-Natriuretic Peptide 189.0 pg/mL (5.0-100.0) H 01/18/17 05:37 Total Protein 4.6 gm/dL (6.0-8.3) L 01/17/17 08:50 Albumin 2.5 gm/dL (4.2-5.5) L 01/17/17 08:50 Globulin 2.1 gm/dL 01/17/17 08:50 Albumin/Globulin Ratio 1.2 (1.0-1.8) 01/17/17 08:50 Triglycerides 343 mg/dL (<150) H 01/11/17 09:15 Cholesterol 163 mg/dL (<200) 01/11/17 09:15 LDL Cholesterol Direct 82 mg/dL (75-193) 01/11/17 09:15 HDL Cholesterol 46 mg/dL (23-92) 01/11/17 09:15 TSH 0.39 uIU/ml (0.34-5.60) 01/06/17 11:59 PTH Intact 31 pg/mL (15-65) 01/06/17 12:09 Urine Source RAE PORT 01/15/17 14:00 Urine Color YELLOW 01/15/17 14:00 Urine Clarity SLIGHT CLOUDY (CLEAR) 01/15/17 14:00 Urine pH 6.0 (4.6 - 8.0) 01/15/17 14:00 Ur Specific [place] 1.020 (1.005-1.030) 01/15/17 14:00 Urine Protein NEGATIVE mg/dL (NEGATIVE) 01/15/17 14:00 Urine Glucose (UA) >=1000 mg/dL (NEGATIVE) H 01/15/17 14:00 Urine Ketones NEGATIVE mg/dL (NEGATIVE) 01/15/17 14:00 Urine Blood MODERATE (NEGATIVE) H 01/15/17 14:00 Urine Nitrate NEGATIVE (NEGATIVE) 01/15/17 14:00 Urine Bilirubin NEGATIVE (NEGATIVE) 01/15/17 14:00 Urine Urobilinogen 0.2 E.U./dL (0.2 - 1.0) 01/15/17 14:00 Ur Leukocyte Esterase NEGATIVE (NEGATIVE) 01/15/17 14:00 Urine RBC 10-25 /hpf (0-5) H 01/15/17 14:00 Urine WBC 2-5 /hpf (0-5) H 01/15/17 14:00 Ur Epithelial Cells FEW /lpf (FEW) 01/15/17 14:00 Amorphous Sediment MODERATE URATES (NONE SEEN) 01/11/17 16:00 Urine Bacteria FEW /hpf (NONE SEEN) 01/15/17 14:00 Fine Granular Casts 0-2 /lpf (NONE SEEN) H 01/11/17 16:00 Urine Mucus FEW /lpf (FEW) 01/15/17 14:00 Urine Yeast FEW /hpf (NONE SEEN) H 01/11/17 16:00 Vancomycin Trough 7.3 ug/mL (10-20) L 01/14/17 08:05 - Physical Exam Vitals and I&O: Vital Signs Temp 98.8 F 01/18/17 11:49 Pulse 69 01/18/17 12:48 Resp 18 01/18/17 12:48 BP 130/76 01/18/17 11:49 Pulse Ox 92 01/18/17 12:48 Intake & Output 01/17/17 01/18/17 01/18/17 18:59 06:59 18:59 Intake Total 250 3150 Output Total 1205 1500 Balance -955 1650 Weight (lbs) 68.492 kg 68.946 kg Intake: Intake, IV Amount 200 150 Levetiracetam 500mg/100mL 100 100 500 mg In 100 ml @ 400 mls/hr IV Q12HR@0900,2100 [facility] Rx#:[id number] Piperacillin Sodium/ 100 50 Tazobact 3.375 gm In Sodium Chloride 0.9% 50 ml @ 100 mls/hr IV Q6HR [facility] Rx#:[id number] Oral 50 Other 3000 Output: Gastric Drainage 5 Urine 1200 1500 Other: # Bowel Movements 1 Stool Characteristics Soft Soft Liquid Active Medications: Current Medications Acetaminophen (Tylenol 650mg Supp) 650 mg RC Q4H PRN PRN Reason: Fever > 101 Stop: 03/10/17 13:04 Last Admin: 01/12/17 03:37 Dose: 650 mg Albuterol/Ipratropium (Duoneb Neb) 3 ml HHN Q4HRT [facility] Stop: 03/11/17 14:59 Last Admin: 01/18/17 12:41 Dose: 3 ml Albuterol/Ipratropium (Duoneb Neb) 3 ml HHN Q2HRT PRN PRN Reason: Wheezing Stop: 03/11/17 13:46 Artificial Tears (Artificial Tears Ophth Soln) 1 drop EACH EYE BID [facility] Stop: 03/08/17 08:59 Last Admin: 01/18/17 09:10 Dose: 1 drop Ascorbic Acid (Vitamin C) 500 mg PO DAILY [facility] Stop: 03/08/17 08:59 Last Admin: 01/18/17 09:06 Dose: 500 mg Aspirin (Aspirin Chewable) 81 mg PO DAILY [facility] Stop: 03/13/17 08:59 Last Admin: 01/18/17 09:05 Dose: 81 mg Atorvastatin Calcium (Lipitor) 20 mg PO DAILY [facility]Y PRN Reason: Protocol Stop: 03/12/17 16:29 Last Admin: 01/18/17 09:05 Dose: 20 mg Atropine Sulfate (Atropine Syringe) 1 mg IVP Q4HR PRN PRN Reason: HR BELOW 40 Stop: 03/09/17 08:32 Last Admin: 01/09/17 01:00 Dose: 1 mg Bisacodyl (Dulcolax 10 Mg Supp) 10 mg RC HS [facility] Stop: 03/14/17 20:59 Last Admin: 01/17/17 22:00 Dose: 10 mg Calcium/Vitamin D (Oscal W/Vitamin D) 1 tab PO DAILY [facility] Stop: 03/08/17 08:59 Last Admin: 01/18/17 09:08 Dose: 1 tab Cyanocobalamin (Vitamin B12) 500 mcg PO DAILY [facility] Stop: 03/08/17 08:59 Last Admin: 01/18/17 09:05 Dose: 500 mcg Diltiazem HCl (Cardizem) 20 mg IVP Q4HR PRN PRN Reason: FOR HR>130 Stop: 03/13/17 03:53 Last Admin: 01/12/17 20:50 Dose: 20 mg Docusate Sodium (Colace) 100 mg PO DAILY [facility] Stop: 03/08/17 08:59 Last Admin: 01/18/17 09:06 Dose: 100 mg Levetiracetam (Keppra Pb) 500 mg in 100 mls @ 400 mls/hr IV Q12HR@0900,2100 [facility] Stop: 03/13/17 10:29 Last Admin: 01/18/17 09:07 Dose: 400 mls/hr Potassium Chloride/Sodium Chloride (0.9% Ns W/20 Meq Kcl) 1,000 mls @ 50 mls/ hr IV .Q20H [facility] Stop: 03/18/17 19:27 Last Admin: 01/17/17 20:26 Dose: 50 mls/hr Gentamicin Sulfate 140 mg/ (Sodium Chloride) 103.5 mls @ 100 mls/hr IV Q12H [facility] Stop: 03/19/17 10:59 Last Admin: 01/18/17 12:18 Dose: 100 mls/hr Insulin Aspart (Novolog Insulin Sliding Scale) 2 - 12 units SUBQ ACHS [facility]Y PRN Reason: Protocol Stop: 03/16/17 20:59 Last Admin: 01/18/17 12:19 Dose: Not Given Lorazepam (Ativan) 1 mg IVP Q4HR PRN; Protocol PRN Reason: Seizure Stop: 03/15/17 09:07 Methylprednisolone Sodium Succinate (Solu-Medrol) 60 mg IVP Q12HR [facility] Stop: 03/16/17 08:59 Last Admin: 01/18/17 09:07 Dose: 60 mg Mineral Oil (Fleet Mineral Oil) 135 ml RC DAILY PRN PRN Reason: CONSTIPATION Stop: 03/13/17 12:59 Last Admin: 01/14/17 10:49 Dose: 135 ml Mineral Oil (Mineral Oil 30 Ml) 30 ml NG Q6HR [facility] Stop: 03/15/17 11:59 Last Admin: 01/18/17 12:19 Dose: 30 ml Miscellaneous (Vte Chemical Prophylaxis Screen/ Admission) 1 ea PRN PRN PRN Reason: PROTOCOL Stop: 03/08/17 11:10 Miscellaneous (Probiotic Screen) 1 ea PRN PRN PRN Reason: PROTOCOL Stop: 03/13/17 13:54 Miscellaneous (Gentamicin Iv Per Pharmacy) 1 ea PRN PRN PRN Reason: PROTOCOL Stop: 03/19/17 08:25 Polyethylene Glycol (Miralax) 17 gm PO BID [facility] Stop: 03/14/17 16:59 Last Admin: 01/18/17 09:10 Dose: 17 gm Potassium Chloride (Klor-Con) 20 meq PO DAILY [facility] Stop: 03/08/17 08:59 Last Admin: 01/18/17 09:06 Dose: 20 meq General: no acute distress, cachectic HEENT: atraumatic, normocephalic, PERRLA, EOMI, moist mucous membrane Neck: supple, no thyromegaly Cardiovascular: S1S2, regular Lungs: clear to auscultation bilaterally, clear to percussion Abdomen: soft, no tender, no distended, no mass, no rebound Extremities: no cyanosis, no clubbing Neurological: awake, alert Skin: intact Infectious Disease Assmt/Plan - Problem List Patient Problems: All Active Problems Constipation (Acute) K59.00 Dementia (Acute) F03.90 Facial twitching (Acute) G51.4 Hypocalcemia (Acute) E83.51 Hypokalemia (Acute) E87.6 Hypomagnesemia (Acute) E83.42 Hypophosphatemia (Acute) E83.39 Ileus (Acute) K56.7 Leukocytosis (Acute) D72.829 Multiple sclerosis (Acute) G35 Seizure disorder (Acute) G40.909 Sinus bradycardia (Acute) R00.1 - Assessment Assessment: 1. Leukocytosis and low-grade fever, sepsis.worse. ? Steroids. 2. Urinary tract infection. 3. Possible common bile duct obstruction distal end, cholelithiasis. 4. Fecal impaction. 5. Supraventricular tachycardia. 6. Multiple sclerosis. 7. Dementia. 8. constipation. - Plan Plan: Antibiotics gentamicin. KUB. Gi for consultations on the case. Decrease steroids. Nutritional Asmnt/Malnutr-PDOC - Dietary Evaluation Malnutrition Findings (Please click <Entered> for more info): Nutritional Asmnt/Malnutrition Start: 01/08/17 12: 55 Text: Status: Complete Freq: Document 01/08/17 12:56 GSUN (Rec: 01/08/17 13:16 GSUN [id number]) Nutritional Asmnt/Malnutrition Patient General Information Nutritional Screening Consult Diagnosis ALOC, acute MS exacerbation Pertinent Medical Hx/Surgical Hx Dementia, multiple sclerosis, constipation Subjective Information 76 year old male from SNF. RD consult for laura Huntley. Per RN notes, facial twitching on adm, currently NPO with swallow eval pending. Pt was awake during visit, followed RD with eyes, did not provide any information. Mild wasting to chest noted, loose skin to arms. Current Diet Order/ Nutrition Support NPO Pertinent Medications Vitamin C, Oscal W/Vitamin D, Vitamin B12, D5-0.45ns, Dulcolax, Colace Pertinent Labs 01/08: reviewed. Glucose 148H Nutritional Hx/Data Height 1.85 m Height (Calculated Centimeters) 185.4 Current Weight (lbs) 69.49 kg Weight (Calculated Kilograms) 69.5 Weight (Calculated Grams) 95591.4 [place] Body Weight 184 Weight Status Approriate GI Symptoms Usual diet at home [facility]: pureed, large portion lunch and dinner, 4oz house supplement Skin Integrity/Comment: Audi 12. Pressure area r foot and upper back, abrasion l knee and r leg Estimated Nutritional Goals BEE in Kcals: Using Current wt Calories/Kcals/Kg IBW 184lb/83.6kg with consideration skin integrity and BMI Kcals Calculated 2090-2508kcal (25-30kcal/kg) Protein: Using Current wt Protein Calculated 84-109g (1-1.3g/kg) Fluid: ml 2090-2508ml (1ml/kcal) Nutritional Problem 2. 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 Recommend regular diet, diet texture per swallow eval (pending). [facility] order pureed. Expected Outcomes/Goals Expected Outcomes/Goals 1. PO intake to meet at least 75% of estimated nutritional needs.
[2017-01-18] MEDS: 0.9% NS w/20 mEq KCL 1,000 ML IV SCH (20:23)
[2017-01-18] MEDS: methylPREDNISolone SS 40 mg Vial IVP SCH (20:24)
[2017-01-19] MEDS: Albuterol/Ipratropium Neb 3 ML AERS HHN SCH ×6 (03:22→23:46)
[2017-01-19] MEDS: INSULIN ASPART SLIDING SCALE 100 UNITS/ML UNIT SUBQ SCH ×4 (06:46→21:00)
--- NOTE | 2017-01-19 08:23 | General Progress Note ---
Subjective - Review of Systems Service Date: 01/19/17 Subjective: Patient for Barium enema. Patient currently NPO due to risk for aspiration. Will order KUB for this AM. No acute distress. Afebrile. Awake, Alert. Objective - Results Result Diagrams: 01/18/17 05:37 01/18/17 05:37 Recent Labs: Laboratory Last Values WBC 17.6 Th/cmm (4.8-10.8) H 01/18/17 05:37 RBC 3.73 Mil/cmm (3.80-5.80) L 01/18/17 05:37 Hgb 12.2 gm/dL (12-16) 01/18/17 05:37 Hct 35.7 % (41.0-60) L 01/18/17 05:37 MCV 95.8 fl (80-99) 01/18/17 05:37 MCH 32.8 pg (27.0-31.0) H 01/18/17 05:37 MCHC Differential 34.2 pg (28.0-36.0) 01/18/17 05:37 RDW 13.2 % (11.5-20.0) 01/18/17 05:37 Plt Count 139 Th/cmm (150-400) L 01/18/17 05:37 MPV 8.7 fl 01/18/17 05:37 Neutrophils % LOAN PROCESSING SUPERVISOR 01/18/17 05:37 Band Neutrophils % 6 % (0-10) 01/18/17 05:37 Lymphocytes % LOAN PROCESSING SUPERVISOR 01/18/17 05:37 Monocytes % LOAN PROCESSING SUPERVISOR 01/18/17 05:37 Eosinophils % LOAN PROCESSING SUPERVISOR 01/18/17 05:37 Basophils % LOAN PROCESSING SUPERVISOR 01/18/17 05:37 Neutrophils (Manual) 88 % (40-80) H 01/18/17 05:37 Lymphocytes 4 % (20-50) L 01/18/17 05:37 Monocytes 2 % (2-10) 01/18/17 05:37 Eosinophils 0 % (0-5) 01/13/17 04:08 Basophils 0 % (0-3) 01/13/17 04:08 Platelet Estimate ADEQUATE (NORMAL) 01/13/17 04:08 Platelet Morphology NORMAL (NORMAL) 01/13/17 04:08 Anisocytosis 1+ 01/06/17 12:32 RBC Morph Micro Appear NORMAL (NORMAL) 01/13/17 04:08 PT 12.9 SECONDS (9.5-11.5) H 01/06/17 10:50 INR 1.23 (0.5-1.4) 01/06/17 10:50 PTT (Actin FS) 37.0 SECONDS (26.0-38.0) 01/06/17 10:50 Sodium 135 mEq/L (136-145) L 01/18/17 05:37 Potassium 4.0 mEq/L (3.5-5.1) 01/18/17 05:37 Chloride 102 mEq/L (98-107) 01/18/17 05:37 Carbon Dioxide 30.0 mEq/L (21.0-31.0) 01/18/17 05:37 Anion Gap 7.0 (7.0-16.0) 01/18/17 05:37 BUN 18 mg/dL (7-25) 01/18/17 05:37 Creatinine 0.6 mg/dL (0.7-1.3) L 01/18/17 05:37 Est GFR ( Amer) TNP 01/18/17 05:37 Est GFR (Non-Af Amer) TNP 01/18/17 05:37 BUN/Creatinine Ratio 30.0 01/18/17 05:37 Glucose 116 mg/dL (70-105) H 01/18/17 05:37 POC Glucose 89 MG/DL (70 - 105) 01/19/17 05:37 Hemoglobin A1c % 5.7 % (4.0-6.0) 01/14/17 09:07 Whole Bld Lactic Acid 0.95 mmol/L (0.60-1.99) 01/06/17 10:53 Calcium 8.0 mg/dL (8.6-10.3) L 01/18/17 05:37 Phosphorus 2.2 mg/dL (2.5-5.0) L 01/16/17 05:00 Magnesium 2.3 mg/dL (1.9-2.7) 01/15/17 04:50 Total Bilirubin 0.7 mg/dL (0.3-1.0) 01/17/17 08:50 AST 14 U/L (13-39) 01/17/17 08:50 ALT 16 U/L (7-52) 01/17/17 08:50 Alkaline Phosphatase 50 U/L (34-104) 01/17/17 08:50 Creatine Kinase 52 U/L (30-223) 01/06/17 10:50 B-Natriuretic Peptide 189.0 pg/mL (5.0-100.0) H 01/18/17 05:37 Total Protein 4.6 gm/dL (6.0-8.3) L 01/17/17 08:50 Albumin 2.5 gm/dL (4.2-5.5) L 01/17/17 08:50 Globulin 2.1 gm/dL 01/17/17 08:50 Albumin/Globulin Ratio 1.2 (1.0-1.8) 01/17/17 08:50 Triglycerides 343 mg/dL (<150) H 01/11/17 09:15 Cholesterol 163 mg/dL (<200) 01/11/17 09:15 LDL Cholesterol Direct 82 mg/dL (75-193) 01/11/17 09:15 HDL Cholesterol 46 mg/dL (23-92) 01/11/17 09:15 TSH 0.39 uIU/ml (0.34-5.60) 01/06/17 11:59 PTH Intact 31 pg/mL (15-65) 01/06/17 12:09 Urine Source RAE PORT 01/15/17 14:00 Urine Color YELLOW 01/15/17 14:00 Urine Clarity SLIGHT CLOUDY (CLEAR) 01/15/17 14:00 Urine pH 6.0 (4.6 - 8.0) 01/15/17 14:00 Ur Specific [place] 1.020 (1.005-1.030) 01/15/17 14:00 Urine Protein NEGATIVE mg/dL (NEGATIVE) 01/15/17 14:00 Urine Glucose (UA) >=1000 mg/dL (NEGATIVE) H 01/15/17 14:00 Urine Ketones NEGATIVE mg/dL (NEGATIVE) 01/15/17 14:00 Urine Blood MODERATE (NEGATIVE) H 01/15/17 14:00 Urine Nitrate NEGATIVE (NEGATIVE) 01/15/17 14:00 Urine Bilirubin NEGATIVE (NEGATIVE) 01/15/17 14:00 Urine Urobilinogen 0.2 E.U./dL (0.2 - 1.0) 01/15/17 14:00 Ur Leukocyte Esterase NEGATIVE (NEGATIVE) 01/15/17 14:00 Urine RBC 10-25 /hpf (0-5) H 01/15/17 14:00 Urine WBC 2-5 /hpf (0-5) H 01/15/17 14:00 Ur Epithelial Cells FEW /lpf (FEW) 01/15/17 14:00 Amorphous Sediment MODERATE URATES (NONE SEEN) 01/11/17 16:00 Urine Bacteria FEW /hpf (NONE SEEN) 01/15/17 14:00 Fine Granular Casts 0-2 /lpf (NONE SEEN) H 01/11/17 16:00 Urine Mucus FEW /lpf (FEW) 01/15/17 14:00 Urine Yeast FEW /hpf (NONE SEEN) H 01/11/17 16:00 Vancomycin Trough 7.3 ug/mL (10-20) L 01/14/17 08:05 - Physical Exam Vitals and I&O: Vital Signs Temp 98.0 F 01/19/17 04:42 Pulse 71 01/19/17 04:42 Resp 17 01/19/17 04:42 BP 134/74 01/19/17 04:42 Pulse Ox 97 01/19/17 04:42 Intake & Output 01/18/17 01/19/17 01/19/17 18:59 06:59 18:59 Intake Total 2103.5 460 Output Total 1200 1225 Balance 903.5 -765 Weight (lbs) 68.946 kg 63.321 kg Intake: Intake, IV Amount 1203.5 100 0.9% NS w/20 mEq KCL 1, 1000 000 ml @ 50 mls/hr IV . Q20H [facility] Rx#:[id number] Gentamicin 140 mg In 103.5 Sodium Chloride 0.9% 100 ml @ 100 mls/hr IV Q12H [facility] Rx#:[id number] Levetiracetam 500mg/100mL 100 100 500 mg In 100 ml @ 400 mls/hr IV Q12HR@0900,2100 [facility] Rx#:[id number] Oral 0 Other 900 360 Output: Urine 1200 1225 Other: # Bowel Movements 2 1 Stool Characteristics Liquid Liquid Brown Active Medications: Current Medications Acetaminophen (Tylenol 650mg Supp) 650 mg RC Q4H PRN PRN Reason: Fever > 101 Stop: 03/10/17 13:04 Last Admin: 01/12/17 03:37 Dose: 650 mg Albuterol/Ipratropium (Duoneb Neb) 3 ml HHN Q4HRT [facility] Stop: 03/11/17 14:59 Last Admin: 01/19/17 07:29 Dose: 3 ml Albuterol/Ipratropium (Duoneb Neb) 3 ml HHN Q2HRT PRN PRN Reason: Wheezing Stop: 03/11/17 13:46 Artificial Tears (Artificial Tears Ophth Soln) 1 drop EACH EYE BID [facility] Stop: 03/08/17 08:59 Last Admin: 01/18/17 17:26 Dose: 1 drop Ascorbic Acid (Vitamin C) 500 mg PO DAILY [facility] Stop: 03/08/17 08:59 Last Admin: 01/18/17 09:06 Dose: 500 mg Aspirin (Aspirin Chewable) 81 mg PO DAILY [facility] Stop: 03/13/17 08:59 Last Admin: 01/18/17 09:05 Dose: 81 mg Atorvastatin Calcium (Lipitor) 20 mg PO DAILY [facility] PRN Reason: Protocol Stop: 03/12/17 16:29 Last Admin: 01/18/17 09:05 Dose: 20 mg Atropine Sulfate (Atropine Syringe) 1 mg IVP Q4HR PRN PRN Reason: HR BELOW 40 Stop: 03/09/17 08:32 Last Admin: 01/09/17 01:00 Dose: 1 mg Bisacodyl (Dulcolax 10 Mg Supp) 10 mg RC HS [facility] Stop: 03/14/17 20:59 Last Admin: 01/18/17 20:24 Dose: 10 mg Calcium/Vitamin D (Oscal W/Vitamin D) 1 tab PO DAILY [facility] Stop: 03/08/17 08:59 Last Admin: 01/18/17 09:08 Dose: 1 tab Cyanocobalamin (Vitamin B12) 500 mcg PO DAILY [facility] Stop: 03/08/17 08:59 Last Admin: 01/18/17 09:05 Dose: 500 mcg Diltiazem HCl (Cardizem) 20 mg IVP Q4HR PRN PRN Reason: FOR HR>130 Stop: 03/13/17 03:53 Last Admin: 01/12/17 20:50 Dose: 20 mg Docusate Sodium (Colace) 100 mg PO DAILY [facility] Stop: 03/08/17 08:59 Last Admin: 01/18/17 09:06 Dose: 100 mg Levetiracetam (Keppra Pb) 500 mg in 100 mls @ 400 mls/hr IV Q12HR@0900,2100 [facility] Stop: 03/13/17 10:29 Last Infusion: 01/18/17 23:09 Dose: Infused Potassium Chloride/Sodium Chloride (0.9% Ns W/20 Meq Kcl) 1,000 mls @ 50 mls/ hr IV .Q20H [facility] Stop: 03/18/17 19:27 Last Admin: 01/18/17 20:23 Dose: 50 mls/hr Gentamicin Sulfate 140 mg/ (Sodium Chloride) 103.5 mls @ 100 mls/hr IV Q12H [facility] Stop: 03/19/17 10:59 Last Admin: 01/18/17 23:08 Dose: 100 mls/hr Insulin Aspart (Novolog Insulin Sliding Scale) 2 - 12 units SUBQ ACHS [facility] PRN Reason: Protocol Stop: 03/16/17 20:59 Last Admin: 01/19/17 06:46 Dose: Not Given Lorazepam (Ativan) 1 mg IVP Q4HR PRN; Protocol PRN Reason: Seizure Stop: 03/15/17 09:07 Methylprednisolone Sodium Succinate (Solu-Medrol) 20 mg IVP Q12HR [facility] Stop: 03/19/17 15:43 Last Admin: 01/18/17 20:24 Dose: 20 mg Mineral Oil (Fleet Mineral Oil) 135 ml RC DAILY PRN PRN Reason: CONSTIPATION Stop: 03/13/17 12:59 Last Admin: 01/14/17 10:49 Dose: 135 ml Mineral Oil (Mineral Oil 30 Ml) 30 ml NG Q6HR [facility] Stop: 03/15/17 11:59 Last Admin: 01/19/17 05:38 Dose: 30 ml Miscellaneous (Vte Chemical Prophylaxis Screen/ Admission) 1 ea MC PRN PRN PRN Reason: PROTOCOL Stop: 03/08/17 11:10 Miscellaneous (Probiotic Screen) 1 ea PRN PRN PRN Reason: PROTOCOL Stop: 03/13/17 13:54 Miscellaneous (Gentamicin Iv Per Pharmacy) 1 ea PRN PRN PRN Reason: PROTOCOL Stop: 03/19/17 08:25 Polyethylene Glycol (Miralax) 17 gm PO BID [facility] Stop: 03/14/17 16:59 Last Admin: 01/18/17 17:22 Dose: 17 gm Potassium Chloride (Klor-Con) 20 meq PO DAILY [facility] Stop: 03/08/17 08:59 Last Admin: 01/18/17 09:06 Dose: 20 meq General: Alert, No acute distress HEENT: Atraumatic, PERRLA, EOMI Neck: Supple Cardiovascular: Regular rate, Normal S1, Normal S2 Lungs: Other (wheezing,) Abdomen: Bowel sounds, Soft, Other (non tender, no guarding, no rebound) Extremities: no Clubbing, no Cyanosis, no Edema Assessment/Plan - Problem List Patient Problems: All Active Problems Constipation (Acute) K59.00 Dementia (Acute) F03.90 Facial twitching (Acute) G51.4 Hypocalcemia (Acute) E83.51 Hypokalemia (Acute) E87.6 Hypomagnesemia (Acute) E83.42 Hypophosphatemia (Acute) E83.39 Ileus (Acute) K56.7 Leukocytosis (Acute) D72.829 Multiple sclerosis (Acute) G35 Seizure disorder (Acute) G40.909 Sinus bradycardia (Acute) R00.1 - Assessment Assessment: ALOC ... improved. CT head NAD, CT carotid no significant stenosis. hypotensive ... improved. will continue IV fluid support. hypernatremia Na 156+ hypokalemia ... will change fluids to D5 1/2NS @ 75cc/hr. add KCL to fluids. . Electrolyte imbalance ... will continue to monitor daily and correct as needed. 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 for carotid duplex, results pending. Leukocytosis improved ... continue Vancomycin IV and Zosyn IV per pharmacy. MS acute exacerbation ... stable. Patient to continue steroids IV. Ileus vs SBO .... keep NPO. continue IV fluids. will order KUB for today. cardiac arrhythmia ... continue anti-arrythmics per Cardiology Seizure disorder ... on Keppra UTI +Pseudomonas ... continue current IV antibiotics. Hyperglycemia ... will decrease solumedrol. dc D5W. - Plan Plan: ALOC ... improved. CT head NAD, CT carotid NAD. hypotensive ... improved. will continue IV fluid support. hypernatremia Na 156+ hypokalemia ... will change fluids to D5 1/2NS @ 75cc/hr. add KCL to fluids. check CMP,Mg,Phos,Ca tomorrow. Electrolyte imbalance ... will continue to monitor daily and correct as needed. CVA per MRI head ... management per Dr. Franklin. patient on Heparin drip. for carotid duplex. Leukocytosis improved ... WBC's 10K ... DC Rocephin. Will start Vancomycin IV and Zosyn IV per pharmacy MS acute exacerbation ... stable. Patient to continue steroids IV please see neurology consult, CT head neg, constipation ... continue current treatment per GI. cardiac arrhythmia ... continue treatment per Cardiology Nutritional Asmnt/Malnutr-PDOC - Dietary Evaluation Malnutrition Findings (Please click <Entered> for more info): Nutritional Asmnt/Malnutrition Start: 01/08/17 12: 55 Text: Status: Complete Freq: Document 01/08/17 12:56 GSUN (Rec: 01/08/17 13:16 GSUN [id number]) Nutritional Asmnt/Malnutrition Patient General Information Nutritional Screening Consult Diagnosis ALOC, acute MS exacerbation Pertinent Medical Hx/Surgical Hx Dementia, multiple sclerosis, constipation Subjective Information 76 year old male from SNF. RD consult for laura Huntley. Per RN notes, facial twitching on adm, currently NPO with swallow eval pending. Pt was awake during visit, followed RD with eyes, did not provide any information. Mild wasting to chest noted, loose skin to arms. Current Diet Order/ Nutrition Support NPO Pertinent Medications Vitamin C, Oscal W/Vitamin D, Vitamin B12, D5-0.45ns, Dulcolax, Colace Pertinent Labs 01/08: reviewed. Glucose 148H Nutritional Hx/Data Height 1.85 m Height (Calculated Centimeters) 185.4 Current Weight (lbs) 69.49 kg Weight (Calculated Kilograms) 69.5 Weight (Calculated Grams) 38604.4 [place] Body Weight 184 Weight Status Approriate GI Symptoms Usual diet at home [facility]: pureed, large portion lunch and dinner, 4oz house supplement Skin Integrity/Comment: Audi 12. Pressure area r foot and upper back, abrasion l knee and r leg Estimated Nutritional Goals BEE in Kcals: Using Current wt Calories/Kcals/Kg IBW 184lb/83.6kg with consideration skin integrity and BMI Kcals Calculated 2089-2508kcal (25-30kcal/kg) Protein: Using Current wt Protein Calculated 84-109g (1-1.3g/kg) Fluid: ml 2089-2508ml (1ml/kcal) Nutritional Problem 2. 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 Recommend regular diet, diet texture per swallow eval (pending). SNF order pureed. Expected Outcomes/Goals Expected Outcomes/Goals 1. PO intake to meet at least 75% of estimated nutritional needs.
--- NOTE | 2017-01-19 08:56 | GI Progress Note ---
Subjective - Review of Systems Subjective: STILL HAS BM NO NEW COMPLAINTS Objective - Results Result Diagrams: 01/18/17 05:37 01/18/17 05:37 Recent Labs: Laboratory Last Values WBC 17.6 Th/cmm (4.8-10.8) H 01/18/17 05:37 RBC 3.73 Mil/cmm (3.80-5.80) L 01/18/17 05:37 Hgb 12.2 gm/dL (12-16) 01/18/17 05:37 Hct 35.7 % (41.0-60) L 01/18/17 05:37 MCV 95.8 fl (80-99) 01/18/17 05:37 MCH 32.8 pg (27.0-31.0) H 01/18/17 05:37 MCHC Differential 34.2 pg (28.0-36.0) 01/18/17 05:37 RDW 13.2 % (11.5-20.0) 01/18/17 05:37 Plt Count 139 Th/cmm (150-400) L 01/18/17 05:37 MPV 8.7 fl 01/18/17 05:37 Neutrophils % BRIGADIER 01/18/17 05:37 Band Neutrophils % 6 % (0-10) 01/18/17 05:37 Lymphocytes % BRIGADIER 01/18/17 05:37 Monocytes % BRIGADIER 01/18/17 05:37 Eosinophils % BRIGADIER 01/18/17 05:37 Basophils % BRIGADIER 01/18/17 05:37 Neutrophils (Manual) 88 % (40-80) H 01/18/17 05:37 Lymphocytes 4 % (20-50) L 01/18/17 05:37 Monocytes 2 % (2-10) 01/18/17 05:37 Eosinophils 0 % (0-5) 01/13/17 04:08 Basophils 0 % (0-3) 01/13/17 04:08 Platelet Estimate ADEQUATE (NORMAL) 01/13/17 04:08 Platelet Morphology NORMAL (NORMAL) 01/13/17 04:08 Anisocytosis 1+ 01/06/17 12:32 RBC Morph Micro Appear NORMAL (NORMAL) 01/13/17 04:08 PT 12.9 SECONDS (9.5-11.5) H 01/06/17 10:50 INR 1.23 (0.5-1.4) 01/06/17 10:50 PTT (Actin FS) 37.0 SECONDS (26.0-38.0) 01/06/17 10:50 Sodium 135 mEq/L (136-145) L 01/18/17 05:37 Potassium 4.0 mEq/L (3.5-5.1) 01/18/17 05:37 Chloride 102 mEq/L (98-107) 01/18/17 05:37 Carbon Dioxide 30.0 mEq/L (21.0-31.0) 01/18/17 05:37 Anion Gap 7.0 (7.0-16.0) 01/18/17 05:37 BUN 18 mg/dL (7-25) 01/18/17 05:37 Creatinine 0.6 mg/dL (0.7-1.3) L 01/18/17 05:37 Est GFR ( Amer) TNP 01/18/17 05:37 Est GFR (Non-Af Amer) TNP 01/18/17 05:37 BUN/Creatinine Ratio 30.0 01/18/17 05:37 Glucose 116 mg/dL (70-105) H 01/18/17 05:37 POC Glucose 89 MG/DL (70 - 105) 01/19/17 05:37 Hemoglobin A1c % 5.7 % (4.0-6.0) 01/14/17 09:07 Whole Bld Lactic Acid 0.95 mmol/L (0.60-1.99) 01/06/17 10:53 Calcium 8.0 mg/dL (8.6-10.3) L 01/18/17 05:37 Phosphorus 2.2 mg/dL (2.5-5.0) L 01/16/17 05:00 Magnesium 2.3 mg/dL (1.9-2.7) 01/15/17 04:50 Total Bilirubin 0.7 mg/dL (0.3-1.0) 01/17/17 08:50 AST 14 U/L (13-39) 01/17/17 08:50 ALT 16 U/L (7-52) 01/17/17 08:50 Alkaline Phosphatase 50 U/L (34-104) 01/17/17 08:50 Creatine Kinase 52 U/L (30-223) 01/06/17 10:50 B-Natriuretic Peptide 189.0 pg/mL (5.0-100.0) H 01/18/17 05:37 Total Protein 4.6 gm/dL (6.0-8.3) L 01/17/17 08:50 Albumin 2.5 gm/dL (4.2-5.5) L 01/17/17 08:50 Globulin 2.1 gm/dL 01/17/17 08:50 Albumin/Globulin Ratio 1.2 (1.0-1.8) 01/17/17 08:50 Triglycerides 343 mg/dL (<150) H 01/11/17 09:15 Cholesterol 163 mg/dL (<200) 01/11/17 09:15 LDL Cholesterol Direct 82 mg/dL (75-193) 01/11/17 09:15 HDL Cholesterol 46 mg/dL (23-92) 01/11/17 09:15 TSH 0.39 uIU/ml (0.34-5.60) 01/06/17 11:59 PTH Intact 31 pg/mL (15-65) 01/06/17 12:09 Urine Source RAE PORT 01/15/17 14:00 Urine Color YELLOW 01/15/17 14:00 Urine Clarity SLIGHT CLOUDY (CLEAR) 01/15/17 14:00 Urine pH 6.0 (4.6 - 8.0) 01/15/17 14:00 Ur Specific [place] 1.020 (1.005-1.030) 01/15/17 14:00 Urine Protein NEGATIVE mg/dL (NEGATIVE) 01/15/17 14:00 Urine Glucose (UA) >=1000 mg/dL (NEGATIVE) H 01/15/17 14:00 Urine Ketones NEGATIVE mg/dL (NEGATIVE) 01/15/17 14:00 Urine Blood MODERATE (NEGATIVE) H 01/15/17 14:00 Urine Nitrate NEGATIVE (NEGATIVE) 01/15/17 14:00 Urine Bilirubin NEGATIVE (NEGATIVE) 01/15/17 14:00 Urine Urobilinogen 0.2 E.U./dL (0.2 - 1.0) 01/15/17 14:00 Ur Leukocyte Esterase NEGATIVE (NEGATIVE) 01/15/17 14:00 Urine RBC 10-25 /hpf (0-5) H 01/15/17 14:00 Urine WBC 2-5 /hpf (0-5) H 01/15/17 14:00 Ur Epithelial Cells FEW /lpf (FEW) 01/15/17 14:00 Amorphous Sediment MODERATE URATES (NONE SEEN) 01/11/17 16:00 Urine Bacteria FEW /hpf (NONE SEEN) 01/15/17 14:00 Fine Granular Casts 0-2 /lpf (NONE SEEN) H 01/11/17 16:00 Urine Mucus FEW /lpf (FEW) 01/15/17 14:00 Urine Yeast FEW /hpf (NONE SEEN) H 01/11/17 16:00 Vancomycin Trough 7.3 ug/mL (10-20) L 01/14/17 08:05 - Physical Exam Vitals and I&O: Vital Signs Temp 98.0 F 01/19/17 04:42 Pulse 80 01/19/17 08:33 Resp 16 01/19/17 08:33 BP 134/74 01/19/17 04:42 Pulse Ox 94 01/19/17 08:33 Intake & Output 01/18/17 01/19/17 01/19/17 18:59 06:59 18:59 Intake Total 2103.5 460 Output Total 1200 1225 Balance 903.5 -765 Weight (lbs) 68.946 kg 63.321 kg Intake: Intake, IV Amount 1203.5 100 0.9% NS w/20 mEq KCL 1, 1000 000 ml @ 50 mls/hr IV . Q20H [facility] Rx#:[id number] Gentamicin 140 mg In 103.5 Sodium Chloride 0.9% 100 ml @ 100 mls/hr IV Q12H [facility] Rx#:[id number] Levetiracetam 500mg/100mL 100 100 500 mg In 100 ml @ 400 mls/hr IV Q12HR@0900,2100 [facility] Rx#:[id number] Oral 0 Other 900 360 Output: Urine 1200 1225 Other: # Bowel Movements 2 1 Stool Characteristics Liquid Liquid Brown Active Medications: Current Medications Acetaminophen (Tylenol 650mg Supp) 650 mg RC Q4H PRN PRN Reason: Fever > 101 Stop: 03/10/17 13:04 Last Admin: 01/12/17 03:37 Dose: 650 mg Albuterol/Ipratropium (Duoneb Neb) 3 ml HHN Q4HRT [facility] Stop: 03/11/17 14:59 Last Admin: 01/19/17 07:29 Dose: 3 ml Albuterol/Ipratropium (Duoneb Neb) 3 ml HHN Q2HRT PRN PRN Reason: Wheezing Stop: 03/11/17 13:46 Artificial Tears (Artificial Tears Ophth Soln) 1 drop EACH EYE BID [facility] Stop: 03/08/17 08:59 Last Admin: 01/18/17 17:26 Dose: 1 drop Ascorbic Acid (Vitamin C) 500 mg PO DAILY [facility] Stop: 03/08/17 08:59 Last Admin: 01/18/17 09:06 Dose: 500 mg Aspirin (Aspirin Chewable) 81 mg PO DAILY [facility] Stop: 03/13/17 08:59 Last Admin: 01/18/17 09:05 Dose: 81 mg Atorvastatin Calcium (Lipitor) 20 mg PO DAILY [facility] PRN Reason: Protocol Stop: 03/12/17 16:29 Last Admin: 01/18/17 09:05 Dose: 20 mg Atropine Sulfate (Atropine Syringe) 1 mg IVP Q4HR PRN PRN Reason: HR BELOW 40 Stop: 03/09/17 08:32 Last Admin: 01/09/17 01:00 Dose: 1 mg Bisacodyl (Dulcolax 10 Mg Supp) 10 mg RC HS [facility] Stop: 03/14/17 20:59 Last Admin: 01/18/17 20:24 Dose: 10 mg Calcium/Vitamin D (Oscal W/Vitamin D) 1 tab PO DAILY [facility] Stop: 03/08/17 08:59 Last Admin: 01/18/17 09:08 Dose: 1 tab Cyanocobalamin (Vitamin B12) 500 mcg PO DAILY [facility] Stop: 03/08/17 08:59 Last Admin: 01/18/17 09:05 Dose: 500 mcg Diltiazem HCl (Cardizem) 20 mg IVP Q4HR PRN PRN Reason: FOR HR>130 Stop: 03/13/17 03:53 Last Admin: 01/12/17 20:50 Dose: 20 mg Docusate Sodium (Colace) 100 mg PO DAILY [facility] Stop: 03/08/17 08:59 Last Admin: 01/18/17 09:06 Dose: 100 mg Levetiracetam (Keppra Pb) 500 mg in 100 mls @ 400 mls/hr IV Q12HR@0900,2100 [facility] Stop: 03/13/17 10:29 Last Infusion: 01/18/17 23:09 Dose: Infused Gentamicin Sulfate 140 mg/ (Sodium Chloride) 103.5 mls @ 100 mls/hr IV Q12H [facility] Stop: 03/19/17 10:59 Last Admin: 01/18/17 23:08 Dose: 100 mls/hr Potassium Chloride/Dextrose/Sod Cl (D5-0.9ns W/Kcl 20meq) 1,000 mls @ 50 mls/ hr IV .Q20H [facility] Stop: 03/20/17 08:44 Insulin Aspart (Novolog Insulin Sliding Scale) 2 - 12 units SUBQ ACHS [facility] PRN Reason: Protocol Stop: 03/16/17 20:59 Last Admin: 01/19/17 06:46 Dose: Not Given Lorazepam (Ativan) 1 mg IVP Q4HR PRN; Protocol PRN Reason: Seizure Stop: 03/15/17 09:07 Methylprednisolone Sodium Succinate (Solu-Medrol) 20 mg IVP Q12HR [facility] Stop: 03/19/17 15:43 Last Admin: 01/18/17 20:24 Dose: 20 mg Mineral Oil (Fleet Mineral Oil) 135 ml RC DAILY PRN PRN Reason: CONSTIPATION Stop: 03/13/17 12:59 Last Admin: 01/14/17 10:49 Dose: 135 ml Mineral Oil (Mineral Oil 30 Ml) 30 ml NG Q6HR [facility] Stop: 03/15/17 11:59 Last Admin: 01/19/17 05:38 Dose: 30 ml Miscellaneous (Vte Chemical Prophylaxis Screen/ Admission) 1 ea PRN PRN PRN Reason: PROTOCOL Stop: 03/08/17 11:10 Miscellaneous (Probiotic Screen) 1 ea PRN PRN PRN Reason: PROTOCOL Stop: 03/13/17 13:54 Miscellaneous (Gentamicin Iv Per Pharmacy) 1 ea PRN PRN PRN Reason: PROTOCOL Stop: 03/19/17 08:25 Polyethylene Glycol (Miralax) 17 gm PO BID [facility] Stop: 03/14/17 16:59 Last Admin: 01/18/17 17:22 Dose: 17 gm Potassium Chloride (Klor-Con) 20 meq PO DAILY [facility] Stop: 03/08/17 08:59 Last Admin: 09/21/17 09:06 Dose: 20 meq General: Alert, No acute distress HEENT: Atraumatic, PERRLA, EOMI Neck: Supple Cardiovascular: Regular rate, Normal S1, Normal S2 Lungs: Other (wheezing,) Abdomen: Bowel sounds, Soft, Other (non tender, no guarding, no rebound) Extremities: no Clubbing, no Cyanosis, no Edema Assessment/Plan - Problem List Patient Problems: All Active Problems Constipation (Acute) K59.00 Dementia (Acute) F03.90 Facial twitching (Acute) G51.4 Hypocalcemia (Acute) E83.51 Hypokalemia (Acute) E87.6 Hypomagnesemia (Acute) E83.42 Hypophosphatemia (Acute) E83.39 Ileus (Acute) K56.7 Leukocytosis (Acute) D72.829 Multiple sclerosis (Acute) G35 Seizure disorder (Acute) G40.909 Sinus bradycardia (Acute) R00.1 - Assessment Assessment: 76 YO MALE WITH CONSTIPATION RELIEVED USING LAXATIVES MRCP SHOWED NO DILATATION OF THE CBD BUT THERE WAS A GALLSTONE LFTS ARE NORMAL ERCP DEFERRED FOR LACK OF SYMPTOMS, NO BIOCHEMICAL EVIDENCE OF CHOLESTASIS, AND PT'S COMORBIDITIES FAMILY STATES PT DID NOT WANT PEG 1.CONT LAXATIVES 2.CONSIDER CAROLEE IF GALLSTONES BECOME SYMPTOMATIC 3.GET BARIUM ENEMA
[2017-01-19 10:02] LABS: HEMOGLOBIN 13.1 gm/dL (12-16); MEAN PLATELET VOLUME 8.4 fl
[2017-01-19 10:05] LABS: HEMATOCRIT 39.1 % (41.0-60); MEAN CELL VOLUME 96.1 fl (80-99); MEAN CORPUSCULAR HEMOGLOBIN 32.1 pg (27.0-31.0); MEAN CORPUSCULAR HGB CONC 33.4 pg (28.0-36.0); RED BLOOD COUNT 4.07 Mil/cmm (3.80-5.80); RED CELL DISTRIBUTION WIDTH 13.3 % (11.5-20.0)
[2017-01-19 10:20] LABS: WHITE BLOOD COUNT 18.7 Th/cmm (4.8-10.8)
[2017-01-19 10:21] LABS: ALB/GLOB RATIO 1.1 (1.0-1.8); ALKALINE PHOSPHATASE 50 U/L (34-104); ANION GAP 8.8 (7.0-16.0); BILIRUBIN,TOTAL 0.7 mg/dL (0.3-1.0); BUN - UREA NITROGEN 16 mg/dL (7-25); CALCIUM SERUM 7.9 mg/dL (8.6-10.3); CARBON DIOXIDE 26.6 mEq/L (21.0-31.0); CHLORIDE 102 mEq/L (98-107); CREATININE - SERUM 0.5 mg/dL (0.7-1.3); GLUCOSE 78 mg/dL (70-105); PLATELET COUNT 176 Th/cmm (150-400); POTASSIUM SERUM 3.4 mEq/L (3.5-5.1); SGOT 17 U/L (13-39); SGPT/ALT 21 U/L (7-52); SODIUM SERUM 134 mEq/L (136-145)
[2017-01-19 10:25] LABS: BAND NEUTROPHILE 7 % (0-10); BASOPHIL 0 % (0-3); EOSINOPHIL 0 % (0-5); NEUTROPHILS 88 % (40-80); PLATELET ESTIMATE ADEQUATE (NORMAL); PLATELET MORPHOLOGY NORMAL (NORMAL); TOTAL CELLS COUNTED 100
--- NOTE | 2017-01-19 11:39 | Diagnostic Imaging Report ---
KUB single view HISTORY: Constipation, possible be procedure COMPARISON: KUB performed on 01/18/2017 FINDINGS: There has been almost complete resolution of previous distal fecal impaction. Diffuse distended loops of bowel are again noted. IMPRESSION: Almost complete resolution of patient's previous distal fecal impaction. Barium enema can be performed at this time if indicated. Persistent diffuse distended loops of bowel are again noted.
[2017-01-19] MEDS: Calcium Carb/Vit D 500 mg/200 U Tab PO SCH (12:04)
[2017-01-19] MEDS: Levetiracetam 500mg/100mL 500 MG/100 ML BAG IV SCH ×3 (12:04→20:18)
[2017-01-19] MEDS: Aspirin 81mg Chewable Tab PO SCH (12:04)
[2017-01-19] MEDS: Atorvastatin Calcium 10 MG TAB PO SCH (12:04)
[2017-01-19] MEDS: Multivitamin w/ Minerals Tab PO SCH (12:05)
[2017-01-19] MEDS: POLYETHYLENE GLYCOL 3350 17 GM PACK PO SCH ×2 (12:05→17:46)
[2017-01-19] MEDS: methylPREDNISolone SS 40 mg Vial IVP SCH ×2 (12:05→20:17)
[2017-01-19] MEDS: Polyvinyl Alcohol Ophth Soln 15 mL Bottle EACH EYE SCH ×3 (12:05→17:54)
[2017-01-19] MEDS: D5-0.9NS w/KCL 20mEq 1,000 ML IV SCH (13:45)
[2017-01-19] MEDS: Potassium Chloride 20 mEq ER Tab PO SCH (13:46)
--- NOTE | 2017-01-19 16:19 | Diagnostic Imaging Report ---
Barium enema, single contrast History: Constipation Comparison: KUB performed [facility] on 01/19/2017. He was also compared to CT abdomen and pelvis on 01/06/2017 Technique/procedure: Manager Agency view demonstrates severe distended loops of bowel. Soft tissue density in the pelvis may be due to patient distended urinary bladder. An NG tube is also noted. Thin barium was administered via rectal tube and multiple fluoroscopic images were obtained. There is diffuse distention of bowel loops particularly of the sigmoid colon and transverse colon. There was delay of passage of contrast from the sigmoid colon to the descending colon. There was eventual opacification of the descending colon to the level of the splenic flexure. No significant contrast was able to be progressed past this point. IMPRESSION: Incomplete examination due to diffuse distended loops of bowel. There was delay of passage of contrast from the sigmoid colon to the descending colon. There was no passage of of rectal contrast proximal to the splenic flexure region. Findings are probably due to severe generalized colonic ileus. No significant stool was identified, however, correlation should be made with colonoscopy. No gross obstructing mass lesion was identified to the level of the splenic flecture.
--- NOTE | 2017-01-19 22:16 | Infectious Disease Prog Note ---
Infectious Disease Subjective - Review of Systems Service Date: 01/19/17 Subjective: There is no new change, there is no fever. Doing better. Infectious Disease Objective - Results Result Diagrams: 01/20/17 05:44 01/20/17 05:44 Recent Labs: Laboratory Last Values WBC 18.7 Th/cmm (4.8-10.8) H 01/19/17 10:00 RBC 4.07 Mil/cmm (3.80-5.80) 01/19/17 10:00 Hgb 13.1 gm/dL (12-16) 01/19/17 10:00 Hct 39.1 % (41.0-60) L 01/19/17 10:00 MCV 96.1 fl (80-99) 01/19/17 10:00 MCH 32.1 pg (27.0-31.0) H 01/19/17 10:00 MCHC Differential 33.4 pg (28.0-36.0) 01/19/17 10:00 RDW 13.3 % (11.5-20.0) 01/19/17 10:00 Plt Count 176 Th/cmm (150-400) D 01/19/17 10:00 MPV 8.4 fl 01/19/17 10:00 Neutrophils % BUS ATTENDANT 01/18/17 05:37 Band Neutrophils % 7 % (0-10) 01/19/17 10:00 Lymphocytes % BUS ATTENDANT 01/18/17 05:37 Monocytes % BUS ATTENDANT 01/18/17 05:37 Eosinophils % BUS ATTENDANT 01/18/17 05:37 Basophils % BUS ATTENDANT 01/18/17 05:37 Neutrophils (Manual) 88 % (40-80) H 01/19/17 10:00 Lymphocytes 2 % (20-50) L 01/19/17 10:00 Monocytes 3 % (2-10) 01/19/17 10:00 Eosinophils 0 % (0-5) 01/19/17 10:00 Basophils 0 % (0-3) 01/19/17 10:00 Platelet Estimate ADEQUATE (NORMAL) 01/19/17 10:00 Platelet Morphology NORMAL (NORMAL) 01/19/17 10:00 Anisocytosis 1+ 01/06/17 12:32 RBC Morph Micro Appear NORMAL (NORMAL) 01/19/17 10:00 PT 12.9 SECONDS (9.5-11.5) H 01/06/17 10:50 INR 1.23 (0.5-1.4) 01/06/17 10:50 PTT (Actin FS) 37.0 SECONDS (26.0-38.0) 01/06/17 10:50 Sodium 134 mEq/L (136-145) L 01/19/17 10:00 Potassium 3.4 mEq/L (3.5-5.1) L 01/19/17 10:00 Chloride 102 mEq/L (98-107) 01/19/17 10:00 Carbon Dioxide 26.6 mEq/L (21.0-31.0) 01/19/17 10:00 Anion Gap 8.8 (7.0-16.0) 01/19/17 10:00 BUN 16 mg/dL (7-25) 01/19/17 10:00 Creatinine 0.5 mg/dL (0.7-1.3) L 01/19/17 10:00 Est GFR ( Amer) TNP 01/19/17 10:00 Est GFR (Non-Af Amer) TNP 01/19/17 10:00 BUN/Creatinine Ratio 32.0 01/19/17 10:00 Glucose 78 mg/dL (70-105) 01/19/17 10:00 POC Glucose 76 MG/DL (70 - 105) 01/19/17 20:45 Hemoglobin A1c % 5.7 % (4.0-6.0) 01/14/17 09:07 Whole Bld Lactic Acid 0.95 mmol/L (0.60-1.99) 01/06/17 10:53 Calcium 7.9 mg/dL (8.6-10.3) L 01/19/17 10:00 Phosphorus 2.2 mg/dL (2.5-5.0) L 01/16/17 05:00 Magnesium 2.3 mg/dL (1.9-2.7) 01/15/17 04:50 Total Bilirubin 0.7 mg/dL (0.3-1.0) 01/19/17 10:00 AST 17 U/L (13-39) 01/19/17 10:00 ALT 21 U/L (7-52) 01/19/17 10:00 Alkaline Phosphatase 50 U/L (34-104) 01/19/17 10:00 Creatine Kinase 52 U/L (30-223) 01/06/17 10:50 B-Natriuretic Peptide 189.0 pg/mL (5.0-100.0) H 01/18/17 05:37 Total Protein 4.9 gm/dL (6.0-8.3) L 01/19/17 10:00 Albumin 2.6 gm/dL (4.2-5.5) L 01/19/17 10:00 Globulin 2.3 gm/dL 01/19/17 10:00 Albumin/Globulin Ratio 1.1 (1.0-1.8) 01/19/17 10:00 Triglycerides 343 mg/dL (<150) H 01/11/17 09:15 Cholesterol 163 mg/dL (<200) 01/11/17 09:15 LDL Cholesterol Direct 82 mg/dL (75-193) 01/11/17 09:15 HDL Cholesterol 46 mg/dL (23-92) 01/11/17 09:15 TSH 0.39 uIU/ml (0.34-5.60) 01/06/17 11:59 PTH Intact 31 pg/mL (15-65) 01/06/17 12:09 Urine Source RAE PORT 01/15/17 14:00 Urine Color YELLOW 01/15/17 14:00 Urine Clarity SLIGHT CLOUDY (CLEAR) 01/15/17 14:00 Urine pH 6.0 (4.6 - 8.0) 01/15/17 14:00 Ur Specific [place] 1.020 (1.005-1.030) 01/15/17 14:00 Urine Protein NEGATIVE mg/dL (NEGATIVE) 01/15/17 14:00 Urine Glucose (UA) >=1000 mg/dL (NEGATIVE) H 01/15/17 14:00 Urine Ketones NEGATIVE mg/dL (NEGATIVE) 01/15/17 14:00 Urine Blood MODERATE (NEGATIVE) H 01/15/17 14:00 Urine Nitrate NEGATIVE (NEGATIVE) 01/15/17 14:00 Urine Bilirubin NEGATIVE (NEGATIVE) 01/15/17 14:00 Urine Urobilinogen 0.2 E.U./dL (0.2 - 1.0) 01/15/17 14:00 Ur Leukocyte Esterase NEGATIVE (NEGATIVE) 01/15/17 14:00 Urine RBC 10-25 /hpf (0-5) H 01/15/17 14:00 Urine WBC 2-5 /hpf (0-5) H 01/15/17 14:00 Ur Epithelial Cells FEW /lpf (FEW) 01/15/17 14:00 Amorphous Sediment MODERATE URATES (NONE SEEN) 01/11/17 16:00 Urine Bacteria FEW /hpf (NONE SEEN) 01/15/17 14:00 Fine Granular Casts 0-2 /lpf (NONE SEEN) H 01/11/17 16:00 Urine Mucus FEW /lpf (FEW) 01/15/17 14:00 Urine Yeast FEW /hpf (NONE SEEN) H 01/11/17 16:00 Gentamicin Trough 1.3 ug/ml (0.2-2.0) 01/19/17 10:00 Vancomycin Trough 7.3 ug/mL (10-20) L 01/14/17 08:05 - Physical Exam Vitals and I&O: Vital Signs Temp 98.7 F 01/19/17 20:00 Pulse 78 01/19/17 20:00 Resp 18 01/19/17 20:00 BP 115/63 01/19/17 20:00 Pulse Ox 96 01/19/17 20:00 Intake & Output 01/19/17 01/19/17 01/20/17 06:59 18:59 06:59 Intake Total 563.5 100 Output Total 1225 Balance -661.5 100 Weight (lbs) 63.321 kg 63.049 kg Intake: Intake, IV Amount 203.5 100 Gentamicin 140 mg In 103.5 Sodium Chloride 0.9% 100 ml @ 100 mls/hr IV Q12H [facility] Rx#:[id number] Levetiracetam 500mg/100mL 100 100 500 mg In 100 ml @ 400 mls/hr IV Q12HR@0900,2100 [facility] Rx#:[id number] Oral 0 Other 360 Output: Urine 1225 Other: # Bowel Movements 1 Stool Characteristics Liquid Liquid Brown Brown Active Medications: Current Medications Acetaminophen (Tylenol 650mg Supp) 650 mg RC Q4H PRN PRN Reason: Fever > 101 Stop: 03/10/17 13:04 Last Admin: 01/12/17 03:37 Dose: 650 mg Albuterol/Ipratropium (Duoneb Neb) 3 ml HHN Q4HRT [facility] Stop: 03/11/17 14:59 Last Admin: 01/19/17 19:22 Dose: 3 ml Albuterol/Ipratropium (Duoneb Neb) 3 ml HHN Q2HRT PRN PRN Reason: Wheezing Stop: 03/11/17 13:46 Artificial Tears (Artificial Tears Ophth Soln) 1 drop EACH EYE BID LIZY Stop: 03/08/17 08:59 Last Admin: 01/19/17 17:54 Dose: 1 drop Ascorbic Acid (Vitamin C) 500 mg PO DAILY LIZY Stop: 03/08/17 08:59 Last Admin: 01/19/17 12:39 Dose: Not Given Aspirin (Aspirin Chewable) 81 mg PO DAILY LIZY Stop: 03/13/17 08:59 Last Admin: 01/19/17 12:04 Dose: Not Given Atorvastatin Calcium (Lipitor) 20 mg PO DAILY LIZY PRN Reason: Protocol Stop: 03/12/17 16:29 Last Admin: 01/19/17 12:04 Dose: Not Given Atropine Sulfate (Atropine Syringe) 1 mg IVP Q4HR PRN PRN Reason: HR BELOW 40 Stop: 03/09/17 08:32 Last Admin: 01/09/17 01:00 Dose: 1 mg Bisacodyl (Dulcolax 10 Mg Supp) 10 mg RC HS [facility] Stop: 03/14/17 20:59 Last Admin: 01/19/17 20:18 Dose: 10 mg Calcium/Vitamin D (Oscal W/Vitamin D) 1 tab PO DAILY LIZY Stop: 03/08/17 08:59 Last Admin: 01/19/17 12:04 Dose: Not Given Cyanocobalamin (Vitamin B12) 500 mcg PO DAILY LIZY Stop: 03/08/17 08:59 Last Admin: 01/19/17 12:04 Dose: Not Given Diltiazem HCl (Cardizem) 20 mg IVP Q4HR PRN PRN Reason: FOR HR>130 Stop: 03/13/17 03:53 Last Admin: 01/12/17 20:50 Dose: 20 mg Docusate Sodium (Colace) 100 mg PO DAILY LIZY Stop: 03/08/17 08:59 Last Admin: 01/19/17 12:04 Dose: Not Given Levetiracetam (Keppra Pb) 500 mg in 100 mls @ 400 mls/hr IV Q12HR@0900,2100 [facility] Stop: 03/13/17 10:29 Last Admin: 01/19/17 20:18 Dose: 400 mls/hr Potassium Chloride/Dextrose/Sod Cl (D5-0.9ns W/Kcl 20meq) 1,000 mls @ 50 mls/ hr IV .Q20H [facility] Stop: 03/20/17 08:44 Last Admin: 01/19/17 13:45 Dose: 50 mls/hr Gentamicin Sulfate 140 mg/ (Sodium Chloride) 103.5 mls @ 100 mls/hr IV Q12H [facility] Stop: 03/21/17 02:59 Insulin Aspart (Novolog Insulin Sliding Scale) 2 - 12 units SUBQ ACHS LIZY PRN Reason: Protocol Stop: 03/16/17 20:59 Last Admin: 01/19/17 16:43 Dose: Not Given Lorazepam (Ativan) 1 mg IVP Q4HR PRN; Protocol PRN Reason: Seizure Stop: 03/15/17 09:07 Methylprednisolone Sodium Succinate (Solu-Medrol) 20 mg IVP Q12HR [facility] Stop: 03/19/17 15:43 Last Admin: 01/19/17 20:17 Dose: 20 mg Mineral Oil (Fleet Mineral Oil) 135 ml RC DAILY PRN PRN Reason: CONSTIPATION Stop: 03/13/17 12:59 Last Admin: 01/14/17 10:49 Dose: 135 ml Mineral Oil (Mineral Oil 30 Ml) 30 ml NG Q6HR [facility] Stop: 03/15/17 11:59 Last Admin: 01/19/17 17:55 Dose: 30 ml Miscellaneous (Vte Chemical Prophylaxis Screen/ Admission) 1 ea PRN PRN PRN Reason: PROTOCOL Stop: 03/08/17 11:10 Miscellaneous (Probiotic Screen) 1 ea PRN PRN PRN Reason: PROTOCOL Stop: 03/13/17 13:54 Miscellaneous (Gentamicin Iv Per Pharmacy) 1 ea PRN PRN PRN Reason: PROTOCOL Stop: 03/19/17 08:25 Polyethylene Glycol (Miralax) 17 gm PO BID [facility] Stop: 03/14/17 16:59 Last Admin: 01/19/17 17:46 Dose: Not Given Potassium Chloride (Klor-Con) 20 meq PO DAILY [facility] Stop: 03/08/17 08:59 Last Admin: 01/19/17 13:46 Dose: Not Given General: no acute distress, well developed, well nourished HEENT: atraumatic, normocephalic Neck: supple, no thyromegaly Cardiovascular: S1S2, regular Lungs: clear to auscultation bilaterally, clear to percussion Abdomen: soft, no tender Extremities: no cyanosis, no clubbing, no edema Neurological: awake, alert Skin: intact Infectious Disease Assmt/Plan - Problem List Patient Problems: All Active Problems Constipation (Acute) K59.00 Dementia (Acute) F03.90 Facial twitching (Acute) G51.4 Hypocalcemia (Acute) E83.51 Hypokalemia (Acute) E87.6 Hypomagnesemia (Acute) E83.42 Hypophosphatemia (Acute) E83.39 Ileus (Acute) K56.7 Leukocytosis (Acute) D72.829 Multiple sclerosis (Acute) G35 Seizure disorder (Acute) G40.909 Sinus bradycardia (Acute) R00.1 - Assessment Assessment: 1. Leukocytosis and low-grade fever, sepsis.worse. ? Steroids. 2. Urinary tract infection. 3. Possible common bile duct obstruction distal end, cholelithiasis. 4. Fecal impaction. 5. Supraventricular tachycardia. 6. Multiple sclerosis. 7. Dementia. 8. constipation/ileus - Plan Plan: Antibiotics gentamicin. KUB. Gi for consultations on the case. Decrease steroids. Nutritional Asmnt/Malnutr-PDOC - Dietary Evaluation Malnutrition Findings (Please click <Entered> for more info): Nutritional Asmnt/Malnutrition Start: 01/08/17 12: 55 Text: Status: Complete Freq: Document 01/08/17 12:56 GSUN (Rec: 01/08/17 13:16 SOLOMON [id number]) Nutritional Asmnt/Malnutrition Patient General Information Nutritional Screening Consult Diagnosis ALOC, acute MS exacerbation Pertinent Medical Hx/Surgical Hx Dementia, multiple sclerosis, constipation Subjective Information 76 year old male from SNF. RD consult for low Audi. Per RN notes, facial twitching on adm, currently NPO with swallow eval pending. Pt was awake during visit, followed RD with eyes, did not provide any information. Mild wasting to chest noted, loose skin to arms. Current Diet Order/ Nutrition Support NPO Pertinent Medications Vitamin C, Oscal W/Vitamin D, Vitamin B12, D5-0.45ns, Dulcolax, Colace Pertinent Labs 01/08: reviewed. Glucose 148H Nutritional Hx/Data Height 1.85 m Height (Calculated Centimeters) 185.4 Current Weight (lbs) 69.49 kg Weight (Calculated Kilograms) 69.5 Weight (Calculated Grams) 54226.4 [place] Body Weight 184 Weight Status Approriate GI Symptoms Usual diet at home [facility]: pureed, large portion lunch and dinner, 4oz house supplement Skin Integrity/Comment: Audi 12. Pressure area r foot and upper back, abrasion l knee and r leg Estimated Nutritional Goals BEE in Kcals: Using Current wt Calories/Kcals/Kg IBW 184lb/83.6kg with consideration skin integrity and BMI Kcals Calculated 0-2508kcal (25-30kcal/kg) Protein: Using Current wt Protein Calculated 84-109g (1-1.3g/kg) Fluid: ml 0-2508ml (1ml/kcal) Nutritional Problem 2. 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 Recommend regular diet, diet texture per swallow eval (pending). SNF order pureed. Expected Outcomes/Goals Expected Outcomes/Goals 1. PO intake to meet at least 75% of estimated nutritional needs.
[2017-01-20] MEDS: Albuterol/Ipratropium Neb 3 ML AERS HHN SCH ×6 (03:15→22:51)
[2017-01-20 06:33] LABS: HEMATOCRIT 41.6 % (41.0-60); HEMOGLOBIN 13.8 gm/dL (12-16); MEAN CELL VOLUME 95.8 fl (80-99); MEAN CORPUSCULAR HEMOGLOBIN 31.7 pg (27.0-31.0); MEAN CORPUSCULAR HGB CONC 33.1 pg (28.0-36.0); MEAN PLATELET VOLUME 9.2 fl; RED BLOOD COUNT 4.34 Mil/cmm (3.80-5.80); RED CELL DISTRIBUTION WIDTH 13.3 % (11.5-20.0)
[2017-01-20 06:47] LABS: ALB/GLOB RATIO 1.1 (1.0-1.8); ALKALINE PHOSPHATASE 53 U/L (34-104); ANION GAP 9.2 (7.0-16.0); BILIRUBIN,TOTAL 0.7 mg/dL (0.3-1.0); BUN - UREA NITROGEN 14 mg/dL (7-25); CARBON DIOXIDE 26.9 mEq/L (21.0-31.0); CHLORIDE 101 mEq/L (98-107); CREATININE - SERUM 0.5 mg/dL (0.7-1.3); GLUCOSE 104 mg/dL (70-105); POTASSIUM SERUM 4.1 mEq/L (3.5-5.1); SGOT 24 U/L (13-39); SGPT/ALT 22 U/L (7-52); SODIUM SERUM 133 mEq/L (136-145)
[2017-01-20 06:54] LABS: PLATELET COUNT 137 Th/cmm (150-400)
[2017-01-20 06:55] LABS: WHITE BLOOD COUNT 18.2 Th/cmm (4.8-10.8)
[2017-01-20] MEDS: INSULIN ASPART SLIDING SCALE 100 UNITS/ML UNIT SUBQ SCH ×4 (07:00→22:13)
[2017-01-20 07:19] LABS: BAND NEUTROPHILE 2 % (0-10); EOSINOPHIL 1 % (0-5); NEUTROPHILS 90 % (40-80); TOTAL CELLS COUNTED 100
--- NOTE | 2017-01-20 07:49 | General Progress Note ---
Subjective - Review of Systems Service Date: 01/20/17 Subjective: BM's last night. No acute distress. Afebrile. Awake, Alert. NG tube feeding Objective - Results Result Diagrams: 01/20/17 05:44 01/20/17 05:44 Recent Labs: Laboratory Last Values WBC 18.2 Th/cmm (4.8-10.8) H 01/20/17 05:44 RBC 4.34 Mil/cmm (3.80-5.80) 01/20/17 05:44 Hgb 13.8 gm/dL (12-16) 01/20/17 05:44 Hct 41.6 % (41.0-60) 01/20/17 05:44 MCV 95.8 fl (80-99) 01/20/17 05:44 MCH 31.7 pg (27.0-31.0) H 01/20/17 05:44 MCHC Differential 33.1 pg (28.0-36.0) 01/20/17 05:44 RDW 13.3 % (11.5-20.0) 01/20/17 05:44 Plt Count 137 Th/cmm (150-400) L D 01/20/17 05:44 MPV 9.2 fl 01/20/17 05:44 Neutrophils % [facility] 01/18/17 05:37 Band Neutrophils % 2 % (0-10) 01/20/17 05:44 Lymphocytes % HEALTH CLINICIAN 01/18/17 05:37 Monocytes % HEALTH CLINICIAN 01/18/17 05:37 Eosinophils % HEALTH CLINICIAN 01/18/17 05:37 Basophils % HEALTH CLINICIAN 01/18/17 05:37 Neutrophils (Manual) 90 % (40-80) H 01/20/17 05:44 Lymphocytes 4 % (20-50) L 01/20/17 05:44 Monocytes 3 % (2-10) 01/20/17 05:44 Eosinophils 1 % (0-5) 01/20/17 05:44 Basophils 0 % (0-3) 01/19/17 10:00 Platelet Estimate ADEQUATE (NORMAL) 01/19/17 10:00 Platelet Morphology NORMAL (NORMAL) 01/19/17 10:00 Anisocytosis 1+ 01/06/17 12:32 RBC Morph Micro Appear NORMAL (NORMAL) 01/19/17 10:00 PT 12.9 SECONDS (9.5-11.5) H 01/06/17 10:50 INR 1.23 (0.5-1.4) 01/06/17 10:50 PTT (Actin FS) 37.0 SECONDS (26.0-38.0) 01/06/17 10:50 Sodium 133 mEq/L (136-145) L 01/20/17 05:44 Potassium 4.1 mEq/L (3.5-5.1) 01/20/17 05:44 Chloride 101 mEq/L (98-107) 01/20/17 05:44 Carbon Dioxide 26.9 mEq/L (21.0-31.0) 01/20/17 05:44 Anion Gap 9.2 (7.0-16.0) 01/20/17 05:44 BUN 14 mg/dL (7-25) 01/20/17 05:44 Creatinine 0.5 mg/dL (0.7-1.3) L 01/20/17 05:44 Est GFR ( Amer) TNP 01/20/17 05:44 Est GFR (Non-Af Amer) TNP 01/20/17 05:44 BUN/Creatinine Ratio 28.0 01/20/17 05:44 Glucose 104 mg/dL (70-105) 01/20/17 05:44 POC Glucose 106 MG/DL (70 - 105) H 01/20/17 06:05 Hemoglobin A1c % 5.7 % (4.0-6.0) 01/14/17 09:07 Whole Bld Lactic Acid 0.95 mmol/L (0.60-1.99) 01/06/17 10:53 Calcium 8.0 mg/dL (8.6-10.3) L 01/20/17 05:44 Phosphorus 2.2 mg/dL (2.5-5.0) L 01/16/17 05:00 Magnesium 2.3 mg/dL (1.9-2.7) 01/15/17 04:50 Total Bilirubin 0.7 mg/dL (0.3-1.0) 01/20/17 05:44 AST 24 U/L (13-39) 01/20/17 05:44 ALT 22 U/L (7-52) 01/20/17 05:44 Alkaline Phosphatase 53 U/L (34-104) 01/20/17 05:44 Creatine Kinase 52 U/L (30-223) 01/06/17 10:50 B-Natriuretic Peptide 189.0 pg/mL (5.0-100.0) H 01/18/17 05:37 Total Protein 5.1 gm/dL (6.0-8.3) L 01/20/17 05:44 Albumin 2.7 gm/dL (4.2-5.5) L 01/20/17 05:44 Globulin 2.4 gm/dL 01/20/17 05:44 Albumin/Globulin Ratio 1.1 (1.0-1.8) 01/20/17 05:44 Triglycerides 343 mg/dL (<150) H 01/11/17 09:15 Cholesterol 163 mg/dL (<200) 01/11/17 09:15 LDL Cholesterol Direct 82 mg/dL (75-193) 01/11/17 09:15 HDL Cholesterol 46 mg/dL (23-92) 01/11/17 09:15 TSH 0.39 uIU/ml (0.34-5.60) 01/06/17 11:59 PTH Intact 31 pg/mL (15-65) 01/06/17 12:09 Urine Source RAE PORT 01/15/17 14:00 Urine Color YELLOW 01/15/17 14:00 Urine Clarity SLIGHT CLOUDY (CLEAR) 01/15/17 14:00 Urine pH 6.0 (4.6 - 8.0) 01/15/17 14:00 Ur Specific Armstrong 1.020 (1.005-1.030) 01/15/17 14:00 Urine Protein NEGATIVE mg/dL (NEGATIVE) 01/15/17 14:00 Urine Glucose (UA) >=1000 mg/dL (NEGATIVE) H 01/15/17 14:00 Urine Ketones NEGATIVE mg/dL (NEGATIVE) 01/15/17 14:00 Urine Blood MODERATE (NEGATIVE) H 01/15/17 14:00 Urine Nitrate NEGATIVE (NEGATIVE) 01/15/17 14:00 Urine Bilirubin NEGATIVE (NEGATIVE) 01/15/17 14:00 Urine Urobilinogen 0.2 E.U./dL (0.2 - 1.0) 01/15/17 14:00 Ur Leukocyte Esterase NEGATIVE (NEGATIVE) 01/15/17 14:00 Urine RBC 10-25 /hpf (0-5) H 01/15/17 14:00 Urine WBC 2-5 /hpf (0-5) H 01/15/17 14:00 Ur Epithelial Cells FEW /lpf (FEW) 01/15/17 14:00 Amorphous Sediment MODERATE URATES (NONE SEEN) 01/11/17 16:00 Urine Bacteria FEW /hpf (NONE SEEN) 01/15/17 14:00 Fine Granular Casts 0-2 /lpf (NONE SEEN) H 01/11/17 16:00 Urine Mucus FEW /lpf (FEW) 01/15/17 14:00 Urine Yeast FEW /hpf (NONE SEEN) H 01/11/17 16:00 Gentamicin Trough 1.3 ug/ml (0.2-2.0) 01/19/17 10:00 Vancomycin Trough 7.3 ug/mL (10-20) L 01/14/17 08:05 - Physical Exam Vitals and I&O: Vital Signs Temp 98.3 F 01/20/17 04:46 Pulse 92 01/20/17 07:28 Resp 16 01/20/17 07:28 BP 120/68 01/20/17 04:46 Pulse Ox 96 01/20/17 07:28 Intake & Output 01/19/17 01/20/17 01/20/17 18:59 06:59 18:59 Intake Total 620 Output Total 1900 Balance -1280 Weight (lbs) 63.049 kg 63.957 kg Intake: Intake, IV Amount 100 Levetiracetam 500mg/100mL 100 500 mg In 100 ml @ 400 mls/hr IV Q12HR@0900,2100 [facility] Rx#:[id number] Tube Feeding 360 Other 160 Output: Urine 1900 Other: # Bowel Movements 1 Stool Characteristics Liquid Brown Active Medications: Current Medications Acetaminophen (Tylenol 650mg Supp) 650 mg RC Q4H PRN PRN Reason: Fever > 101 Stop: 03/10/17 13:04 Last Admin: 01/12/17 03:37 Dose: 650 mg Albuterol/Ipratropium (Duoneb Neb) 3 ml HHN Q4HRT [facility] Stop: 03/11/17 14:59 Last Admin: 01/20/17 07:22 Dose: 3 ml Albuterol/Ipratropium (Duoneb Neb) 3 ml HHN Q2HRT PRN PRN Reason: Wheezing Stop: 03/11/17 13:46 Artificial Tears (Artificial Tears Ophth Soln) 1 drop EACH EYE BID LIZY Stop: 03/08/17 08:59 Last Admin: 01/19/17 17:54 Dose: 1 drop Ascorbic Acid (Vitamin C) 500 mg PO DAILY LIZY Stop: 03/08/17 08:59 Last Admin: 01/19/17 12:39 Dose: Not Given Aspirin (Aspirin Chewable) 81 mg PO DAILY LIZY Stop: 03/13/17 08:59 Last Admin: 01/19/17 12:04 Dose: Not Given Atorvastatin Calcium (Lipitor) 20 mg PO DAILY LIZY PRN Reason: Protocol Stop: 03/12/17 16:29 Last Admin: 01/19/17 12:04 Dose: Not Given Atropine Sulfate (Atropine Syringe) 1 mg IVP Q4HR PRN PRN Reason: HR BELOW 40 Stop: 03/09/17 08:32 Last Admin: 01/09/17 01:00 Dose: 1 mg Bisacodyl (Dulcolax 10 Mg Supp) 10 mg RC HS LIZY Stop: 03/14/17 20:59 Last Admin: 01/19/17 20:18 Dose: 10 mg Calcium/Vitamin D (Oscal W/Vitamin D) 1 tab PO DAILY LIZY Stop: 03/08/17 08:59 Last Admin: 01/19/17 12:04 Dose: Not Given Cyanocobalamin (Vitamin B12) 500 mcg PO DAILY LIZY Stop: 03/08/17 08:59 Last Admin: 01/19/17 12:04 Dose: Not Given Diltiazem HCl (Cardizem) 20 mg IVP Q4HR PRN PRN Reason: FOR HR>130 Stop: 03/13/17 03:53 Last Admin: 01/12/17 20:50 Dose: 20 mg Docusate Sodium (Colace) 100 mg PO DAILY LIZY Stop: 03/08/17 08:59 Last Admin: 01/19/17 12:04 Dose: Not Given Levetiracetam (Keppra Pb) 500 mg in 100 mls @ 400 mls/hr IV Q12HR@0900,2100 [facility] Stop: 03/13/17 10:29 Last Admin: 01/19/17 20:18 Dose: 400 mls/hr Potassium Chloride/Dextrose/Sod Cl (D5-0.9ns W/Kcl 20meq) 1,000 mls @ 50 mls/ hr IV .Q20H LIZY Stop: 03/20/17 08:44 Last Admin: 01/19/17 13:45 Dose: 50 mls/hr Gentamicin Sulfate 140 mg/ (Sodium Chloride) 103.5 mls @ 100 mls/hr IV Q12H [facility] Stop: 03/21/17 02:59 Last Admin: 01/20/17 04:03 Dose: 100 mls/hr Insulin Aspart (Novolog Insulin Sliding Scale) 2 - 12 units SUBQ ACHS LIZY PRN Reason: Protocol Stop: 03/16/17 20:59 Last Admin: 01/20/17 07:00 Dose: Not Given Lorazepam (Ativan) 1 mg IVP Q4HR PRN; Protocol PRN Reason: Seizure Stop: 03/15/17 09:07 Methylprednisolone Sodium Succinate (Solu-Medrol) 20 mg IVP Q12HR [facility]ZY Stop: 03/19/17 15:43 Last Admin: 01/19/17 20:17 Dose: 20 mg Mineral Oil (Fleet Mineral Oil) 135 ml RC DAILY PRN PRN Reason: CONSTIPATION Stop: 03/13/17 12:59 Last Admin: 01/14/17 10:49 Dose: 135 ml Mineral Oil (Mineral Oil 30 Ml) 30 ml NG Q6HR LIZY Stop: 03/15/17 11:59 Last Admin: 01/20/17 06:06 Dose: 30 ml Miscellaneous (Vte Chemical Prophylaxis Screen/ Admission) 1 [facility] PRN PRN PRN Reason: PROTOCOL Stop: 03/08/17 11:10 Miscellaneous (Probiotic Screen) 1 ea PRN PRN PRN Reason: PROTOCOL Stop: 03/13/17 13:54 Miscellaneous (Gentamicin Iv Per Pharmacy) 1 [facility] PRN PRN PRN Reason: PROTOCOL Stop: 03/19/17 08:25 Polyethylene Glycol (Miralax) 17 gm PO BID [facility] Stop: 03/14/17 16:59 Last Admin: 01/19/17 17:46 Dose: Not Given Potassium Chloride (Klor-Con) 20 meq PO DAILY [facility] Stop: 03/08/17 08:59 Last Admin: 01/19/17 13:46 Dose: Not Given General: Alert, No acute distress HEENT: Atraumatic, PERRLA, EOMI Neck: Supple Cardiovascular: Regular rate, Normal S1, Normal S2 Lungs: Other (wheezing,) Abdomen: Bowel sounds, Soft, Other (non tender, no guarding, no rebound) Extremities: no Clubbing, no Cyanosis, no Edema Assessment/Plan - Problem List Patient Problems: All Active Problems Constipation (Acute) K59.00 Dementia (Acute) F03.90 Facial twitching (Acute) G51.4 Hypocalcemia (Acute) E83.51 Hypokalemia (Acute) E87.6 Hypomagnesemia (Acute) E83.42 Hypophosphatemia (Acute) E83.39 Ileus (Acute) K56.7 Leukocytosis (Acute) D72.829 Multiple sclerosis (Acute) G35 Seizure disorder (Acute) G40.909 Sinus bradycardia (Acute) R00.1 - Assessment Assessment: ALOC ... improved. CT head NAD, CT carotid no significant stenosis. hypotensive ... improved. will continue IV fluid support. hypernatremia Na 156+ hypokalemia ... will change fluids to D5 1/2NS @ 75cc/hr. add KCL to fluids. . Electrolyte imbalance ... will continue to monitor daily and correct as needed. 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 for carotid duplex, results pending. Leukocytosis improved ... continue Vancomycin IV and Zosyn IV per pharmacy. MS acute exacerbation ... stable. Patient to continue steroids IV. Ileus vs SBO .... keep NPO. continue IV fluids. will order KUB for today. cardiac arrhythmia ... continue anti-arrythmics per Cardiology Seizure disorder ... on Keppra UTI +Pseudomonas ... continue current IV antibiotics. Hyperglycemia ... will decrease solumedrol. dc D5W. - Plan Plan: ALOC ... improved. CT head NAD, CT carotid NAD. hypotensive ... improved. will continue IV fluid support. hypernatremia Na 156+ hypokalemia ... will change fluids to D5 1/2NS @ 75cc/hr. add KCL to fluids. check CMP,Mg,Phos,Ca tomorrow. Electrolyte imbalance ... will continue to monitor daily and correct as needed. CVA per MRI head ... management per Dr. Franklin. patient on Heparin drip. for carotid duplex. Leukocytosis improved ... WBC's 10K ... DC Rocephin. Will start Vancomycin IV and Zosyn IV per pharmacy MS acute exacerbation ... stable. Patient to continue steroids IV please see neurology consult, CT head neg, constipation ... continue current treatment per GI. cardiac arrhythmia ... continue treatment per Cardiology Nutritional Asmnt/Malnutr-PDOC - Dietary Evaluation Malnutrition Findings (Please click <Entered> for more info): Nutritional Asmnt/Malnutrition Start: 01/08/17 12: 55 Text: Status: Complete Freq: Document 01/08/17 12:56 GSUN (Rec: 01/08/17 13:16 GSUN [id number]) Nutritional Asmnt/Malnutrition Patient General Information Nutritional Screening Consult Diagnosis ALOC, acute MS exacerbation Pertinent Medical Hx/Surgical Hx Dementia, multiple sclerosis, constipation Subjective Information 76 year old male from SNF. RD consult for laura Huntley. Per RN notes, facial twitching on adm, currently NPO with swallow eval pending. Pt was awake during visit, followed RD with eyes, did not provide any information. Mild wasting to chest noted, loose skin to arms. Current Diet Order/ Nutrition Support NPO Pertinent Medications Vitamin C, Oscal W/Vitamin D, Vitamin B12, D5-0.45ns, Dulcolax, Colace Pertinent Labs 01/08: reviewed. Glucose 148H Nutritional Hx/Data Height 1.85 m Height (Calculated Centimeters) 185.4 Current Weight (lbs) 69.49 kg Weight (Calculated Kilograms) 69.5 Weight (Calculated Grams) 84667.4 [place] Body Weight 184 Weight Status Approriate GI Symptoms Usual diet at home [place] [facility]: pureed, large portion lunch and dinner, 4oz house supplement Skin Integrity/Comment: Audi 12. Pressure area r foot and upper back, abrasion l knee and r leg Estimated Nutritional Goals BEE in Kcals: Using Current wt Calories/Kcals/Kg IBW 184lb/83.6kg with consideration skin integrity and BMI Kcals Calculated 2089-2507kcal (25-30kcal/kg) Protein: Using Current wt Protein Calculated 84-109g (1-1.3g/kg) Fluid: ml 2090-2508ml (1ml/kcal) Nutritional Problem 2. Problem Problem Increased prot needs related to Etiology skin integrity aeb Signs/Symptoms: food selector: pressure area to right foot and upper back, abrasion ro left knee and right lower leg 1. 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 Recommend regular diet, diet texture per swallow eval (pending). SNF order pureed. Expected Outcomes/Goals Expected Outcomes/Goals 1. PO intake to meet at least 75% of estimated nutritional needs.
[2017-01-20] MEDS: POLYETHYLENE GLYCOL 3350 17 GM PACK PO SCH ×2 (10:36→17:22)
[2017-01-20] MEDS: Atorvastatin Calcium 10 MG TAB PO SCH (10:36)
[2017-01-20] MEDS: Calcium Carb/Vit D 500 mg/200 U Tab PO SCH (10:37)
[2017-01-20] MEDS: Aspirin 81mg Chewable Tab PO SCH (10:37)
[2017-01-20] MEDS: Potassium Chloride 20 mEq ER Tab PO SCH (10:37)
[2017-01-20] MEDS: methylPREDNISolone SS 40 mg Vial IVP SCH ×2 (10:37→21:17)
[2017-01-20] MEDS: Multivitamin w/ Minerals Tab PO SCH (10:38)
[2017-01-20] MEDS: Polyvinyl Alcohol Ophth Soln 15 mL Bottle EACH EYE SCH ×2 (10:39→17:22)
[2017-01-20] MEDS: D5-0.9NS w/KCL 20mEq 1,000 ML IV SCH (13:52)
[2017-01-20] MEDS: Levetiracetam 500mg/100mL 500 MG/100 ML BAG IV SCH ×2 (14:16→21:17)
[2017-01-21] MEDS: Albuterol/Ipratropium Neb 3 ML AERS HHN SCH ×6 (03:21→22:50)
[2017-01-21] MEDS: INSULIN ASPART SLIDING SCALE 100 UNITS/ML UNIT SUBQ SCH ×4 (06:58→23:22)
--- NOTE | 2017-01-21 07:59 | General Progress Note ---
Subjective - Review of Systems Service Date: 01/21/17 Subjective: No BM's last night. Abd slightly distended. No acute distress. Afebrile. Awake , Alert. NG tube feeding Objective - Results Result Diagrams: 01/20/17 05:44 01/20/17 05:44 Recent Labs: Laboratory Last Values WBC 18.2 Th/cmm (4.8-10.8) H 01/20/17 05:44 RBC 4.34 Mil/cmm (3.80-5.80) 01/20/17 05:44 Hgb 13.8 gm/dL (12-16) 01/20/17 05:44 Hct 41.6 % (41.0-60) 01/20/17 05:44 MCV 95.8 fl (80-99) 01/20/17 05:44 MCH 31.7 pg (27.0-31.0) H 01/20/17 05:44 MCHC Differential 33.1 pg (28.0-36.0) 01/20/17 05:44 RDW 13.3 % (11.5-20.0) 01/20/17 05:44 Plt Count 137 Th/cmm (150-400) L D 01/20/17 05:44 MPV 9.2 fl 01/20/17 05:44 Neutrophils % LABORATORY CHEMICAL ASSISTANT 01/18/17 05:37 Band Neutrophils % 2 % (0-10) 01/20/17 05:44 Lymphocytes % LABORATORY CHEMICAL ASSISTANT 01/18/17 05:37 Monocytes % LABORATORY CHEMICAL ASSISTANT 01/18/17 05:37 Eosinophils % LABORATORY CHEMICAL ASSISTANT 01/18/17 05:37 Basophils % LABORATORY CHEMICAL ASSISTANT 01/18/17 05:37 Neutrophils (Manual) 90 % (40-80) H 01/20/17 05:44 Lymphocytes 4 % (20-50) L 01/20/17 05:44 Monocytes 3 % (2-10) 01/20/17 05:44 Eosinophils 1 % (0-5) 01/20/17 05:44 Basophils 0 % (0-3) 01/19/17 10:00 Platelet Estimate ADEQUATE (NORMAL) 01/19/17 10:00 Platelet Morphology NORMAL (NORMAL) 01/19/17 10:00 Anisocytosis 1+ 01/06/17 12:32 RBC Morph Micro Appear NORMAL (NORMAL) 01/19/17 10:00 PT 12.9 SECONDS (9.5-11.5) H 01/06/17 10:50 INR 1.23 (0.5-1.4) 01/06/17 10:50 PTT (Actin FS) 37.0 SECONDS (26.0-38.0) 01/06/17 10:50 Sodium 133 mEq/L (136-145) L 01/20/17 05:44 Potassium 4.1 mEq/L (3.5-5.1) 01/20/17 05:44 Chloride 101 mEq/L (98-107) 01/20/17 05:44 Carbon Dioxide 26.9 mEq/L (21.0-31.0) 01/20/17 05:44 Anion Gap 9.2 (7.0-16.0) 01/20/17 05:44 BUN 14 mg/dL (7-25) 01/20/17 05:44 Creatinine 0.5 mg/dL (0.7-1.3) L 01/20/17 05:44 Est GFR ( Amer) TNP 01/20/17 05:44 Est GFR (Non-Af Amer) TNP 01/20/17 05:44 BUN/Creatinine Ratio 28.0 01/20/17 05:44 Glucose 104 mg/dL (70-105) 01/20/17 05:44 POC Glucose 135 MG/DL (70 - 105) H 01/21/17 06:56 Hemoglobin A1c % 5.7 % (4.0-6.0) 01/14/17 09:07 Whole Bld Lactic Acid 0.95 mmol/L (0.60-1.99) 01/06/17 10:53 Calcium 8.0 mg/dL (8.6-10.3) L 01/20/17 05:44 Phosphorus 2.2 mg/dL (2.5-5.0) L 01/16/17 05:00 Magnesium 2.3 mg/dL (1.9-2.7) 01/15/17 04:50 Total Bilirubin 0.7 mg/dL (0.3-1.0) 01/20/17 05:44 AST 24 U/L (13-39) 01/20/17 05:44 ALT 22 U/L (7-52) 01/20/17 05:44 Alkaline Phosphatase 53 U/L (34-104) 01/20/17 05:44 Creatine Kinase 52 U/L (30-223) 01/06/17 10:50 B-Natriuretic Peptide 189.0 pg/mL (5.0-100.0) H 01/18/17 05:37 Total Protein 5.1 gm/dL (6.0-8.3) L 01/20/17 05:44 Albumin 2.7 gm/dL (4.2-5.5) L 01/20/17 05:44 Globulin 2.4 gm/dL 01/20/17 05:44 Albumin/Globulin Ratio 1.1 (1.0-1.8) 01/20/17 05:44 Triglycerides 343 mg/dL (<150) H 01/11/17 09:15 Cholesterol 163 mg/dL (<200) 01/11/17 09:15 LDL Cholesterol Direct 82 mg/dL (75-193) 01/11/17 09:15 HDL Cholesterol 46 mg/dL (23-92) 01/11/17 09:15 TSH 0.39 uIU/ml (0.34-5.60) 01/06/17 11:59 PTH Intact 31 pg/mL (15-65) 01/06/17 12:09 Urine Source RAE PORT 01/15/17 14:00 Urine Color YELLOW 01/15/17 14:00 Urine Clarity SLIGHT CLOUDY (CLEAR) 01/15/17 14:00 Urine pH 6.0 (4.6 - 8.0) 01/15/17 14:00 Ur Specific [place] 1.020 (1.005-1.030) 01/15/17 14:00 Urine Protein NEGATIVE mg/dL (NEGATIVE) 01/15/17 14:00 Urine Glucose (UA) >=1000 mg/dL (NEGATIVE) H 01/15/17 14:00 Urine Ketones NEGATIVE mg/dL (NEGATIVE) 01/15/17 14:00 Urine Blood MODERATE (NEGATIVE) H 01/15/17 14:00 Urine Nitrate NEGATIVE (NEGATIVE) 01/15/17 14:00 Urine Bilirubin NEGATIVE (NEGATIVE) 01/15/17 14:00 Urine Urobilinogen 0.2 E.U./dL (0.2 - 1.0) 01/15/17 14:00 Ur Leukocyte Esterase NEGATIVE (NEGATIVE) 01/15/17 14:00 Urine RBC 10-25 /hpf (0-5) H 01/15/17 14:00 Urine WBC 2-5 /hpf (0-5) H 01/15/17 14:00 Ur Epithelial Cells FEW /lpf (FEW) 01/15/17 14:00 Amorphous Sediment MODERATE URATES (NONE SEEN) 01/11/17 16:00 Urine Bacteria FEW /hpf (NONE SEEN) 01/15/17 14:00 Fine Granular Casts 0-2 /lpf (NONE SEEN) H 01/11/17 16:00 Urine Mucus FEW /lpf (FEW) 01/15/17 14:00 Urine Yeast FEW /hpf (NONE SEEN) H 01/11/17 16:00 Gentamicin Peak 5.3 ug/ml (4.0-8.0) L 01/20/17 16:38 Gentamicin Trough 1.3 ug/ml (0.2-2.0) 01/21/17 02:13 Vancomycin Trough 7.3 ug/mL (10-20) L 01/14/17 08:05 - Physical Exam Vitals and I&O: Vital Signs Temp 98.0 F 01/21/17 04:00 Pulse 92 01/21/17 04:00 Resp 18 01/21/17 04:00 BP 109/68 01/21/17 04:00 Pulse Ox 96 01/21/17 04:00 Intake & Output 01/20/17 01/21/17 01/21/17 18:59 06:59 18:59 Intake Total 1203.5 Output Total 1200 Balance 1203.5 -1200 Weight (lbs) 65.363 kg Intake: Intake, IV Amount 1203.5 D5-0.9NS w/KCL 20mEq 1, 1000 000 ml @ 50 mls/hr IV . Q20H LIZY Rx#:[id number] Gentamicin 140 mg In 103.5 Sodium Chloride 0.9% 100 ml @ 100 mls/hr IV Q12H LIZY Rx#:[id number] Levetiracetam 500mg/100mL 100 500 mg In 100 ml @ 400 mls/hr IV Q12HR@0900,2100 LIZY Rx#:[id number] Output: Urine 1200 Other: # Bowel Movements 0 Stool Characteristics Liquid Brown Active Medications: Current Medications Acetaminophen (Tylenol 650mg Supp) 650 mg RC Q4H PRN PRN Reason: Fever > 101 Stop: 03/10/17 13:04 Last Admin: 01/12/17 03:37 Dose: 650 mg Albuterol/Ipratropium (Duoneb Neb) 3 ml HHN Q4HRT LIZY Stop: 03/11/17 14:59 Last Admin: 01/21/17 07:51 Dose: 3 ml Albuterol/Ipratropium (Duoneb Neb) 3 ml HHN Q2HRT PRN PRN Reason: Wheezing Stop: 03/11/17 13:46 Artificial Tears (Artificial Tears Ophth Soln) 1 drop EACH EYE BID LIZY Stop: 03/08/17 08:59 Last Admin: 01/20/17 17:22 Dose: 1 drop Ascorbic Acid (Vitamin C) 500 mg PO DAILY PENDING SALE TO [facility] Stop: 03/08/17 08:59 Last Admin: 01/20/17 10:39 Dose: 500 mg Aspirin (Aspirin Chewable) 81 mg PO DAILY PENDING S[facility] TO [facility] Stop: 03/13/17 08:59 Last Admin: 01/20/17 10:37 Dose: 81 mg Atorvastatin Calcium (Lipitor) 20 mg PO DAILY ILZY PRN Reason: Protocol Stop: 03/12/17 16:29 Last Admin: 01/20/17 10:36 Dose: 20 mg Atropine Sulfate (Atropine Syringe) 1 mg IVP Q4HR PRN PRN Reason: HR BELOW 40 Stop: 03/09/17 08:32 Last Admin: 01/09/17 01:00 Dose: 1 mg Bisacodyl (Dulcolax 10 Mg Supp) 10 mg RC HS PENDING SALE TO [facility] Stop: 03/14/17 20:59 Last Admin: 01/20/17 21:18 Dose: 10 mg Calcium/Vitamin D (Oscal W/Vitamin D) 1 tab PO DAILY LIZY Stop: 03/08/17 08:59 Last Admin: 01/20/17 10:37 Dose: 1 tab Cyanocobalamin (Vitamin B12) 500 mcg PO DAILY PENDING SALE TO [facility] Stop: 03/08/17 08:59 Last Admin: 01/20/17 10:38 Dose: 500 mcg Diltiazem HCl (Cardizem) 20 mg IVP Q4HR PRN PRN Reason: FOR HR>130 Stop: 03/13/17 03:53 Last Admin: 01/12/17 20:50 Dose: 20 mg Docusate Sodium (Colace) 100 mg PO DAILY [facility]END[facility] TO [facility] Stop: 03/08/17 08:59 Last Admin: 01/20/17 10:38 Dose: 100 mg Levetiracetam (Keppra Pb) 500 mg in 100 mls @ 400 mls/hr IV Q12HR@0900,2100 PENDING S[facility] TO [facility] Stop: 03/13/17 10:29 Last Admin: 01/20/17 21:17 Dose: 400 mls/hr Potassium Chloride/Dextrose/Sod Cl (D5-0.9ns W/Kcl 20meq) 1,000 mls @ 50 mls/ hr IV .Q20H PENDING SALE TO [facility] Stop: 03/20/17 08:44 Last Admin: 01/20/17 13:52 Dose: 50 mls/hr Gentamicin Sulfate 140 mg/ (Sodium Chloride) 103.5 mls @ 100 mls/hr IV Q12HR@ 0200,1400 PENDING SALE TO [facility] Stop: 03/21/17 02:59 Insulin Aspart (Novolog Insulin Sliding Scale) 2 - 12 units SUBQ ACHS LIZY PRN Reason: Protocol Stop: 03/16/17 20:59 Last Admin: 01/21/17 06:58 Dose: Not Given Lorazepam (Ativan) 1 mg IVP Q4HR PRN; Protocol PRN Reason: Seizure Stop: 03/15/17 09:07 Methylprednisolone Sodium Succinate (Solu-Medrol) 20 mg IVP Q12HR PENDING SALE TO [facility] Stop: 03/19/17 15:43 Last Admin: 01/20/17 21:17 Dose: 20 mg Mineral Oil (Fleet Mineral Oil) 135 ml RC DAILY PRN PRN Reason: CONSTIPATION Stop: 03/13/17 12:59 Last Admin: 01/14/17 10:49 Dose: 135 ml Mineral Oil (Mineral Oil 30 Ml) 30 ml NG Q6HR PENDING SALE TO [facility] Stop: 03/15/17 11:59 Last Admin: 01/21/17 06:54 Dose: 30 ml Miscellaneous (Vte Chemical Prophylaxis Screen/ Admission) 1 ea PRN PRN PRN Reason: PROTOCOL Stop: 03/08/17 11:10 Miscellaneous (Probiotic Screen) 1 ea PRN PRN PRN Reason: PROTOCOL Stop: 03/13/17 13:54 Miscellaneous (Gentamicin Iv Per Pharmacy) 1 ea PRN PRN PRN Reason: PROTOCOL Stop: 11/20/17 08:25 Polyethylene Glycol (Miralax) 17 gm PO BID LIZY Stop: 03/14/17 16:59 Last Admin: 01/20/17 17:22 Dose: 17 gm Potassium Chloride (Klor-Con) 20 meq PO DAILY LIZY Stop: 03/08/17 08:59 Last Admin: 01/20/17 10:37 Dose: 20 meq General: Alert, No acute distress HEENT: Atraumatic, PERRLA, EOMI Neck: Supple Cardiovascular: Regular rate, Normal S1, Normal S2 Lungs: Other (wheezing,) Abdomen: Bowel sounds, Soft, Other (non tender, no guarding, no rebound) Extremities: no Clubbing, no Cyanosis, no Edema Assessment/Plan - Problem List Patient Problems: All Active Problems Constipation (Acute) K59.00 Dementia (Acute) F03.90 Facial twitching (Acute) G51.4 Hypocalcemia (Acute) E83.51 Hypokalemia (Acute) E87.6 Hypomagnesemia (Acute) E83.42 Hypophosphatemia (Acute) E83.39 Ileus (Acute) K56.7 Leukocytosis (Acute) D72.829 Multiple sclerosis (Acute) G35 Seizure disorder (Acute) G40.909 Sinus bradycardia (Acute) R00.1 - Assessment Assessment: ALOC ... improved. CT head NAD, CT carotid no significant stenosis. hypotensive ... improved. will continue IV fluid support. hypernatremia Na 156+ hypokalemia ... will change fluids to D5 1/2NS @ 75cc/hr. add KCL to fluids. . Electrolyte imbalance ... will continue to monitor daily and correct as needed. 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 for carotid duplex, results pending. Leukocytosis improved ... continue Vancomycin IV and Zosyn IV per pharmacy. MS acute exacerbation ... stable. Patient to continue steroids IV. Ileus vs SBO .... keep NPO. continue IV fluids. will order KUB for today. cardiac arrhythmia ... continue anti-arrythmics per Cardiology Seizure disorder ... on Keppra UTI +Pseudomonas ... continue current IV antibiotics. Hyperglycemia ... will decrease solumedrol. dc D5W. - Plan Plan: ALOC ... improved. CT head NAD, CT carotid NAD. hypotensive ... improved. will continue IV fluid support. hypernatremia Na 156+ hypokalemia ... will change fluids to D5 1/2NS @ 75cc/hr. add KCL to fluids. check CMP,Mg,Phos,Ca tomorrow. Electrolyte imbalance ... will continue to monitor daily and correct as needed. CVA per MRI head ... management per Dr. Franklin. patient on Heparin drip. for carotid duplex. Leukocytosis improved ... WBC's 10K ... DC Rocephin. Will start Vancomycin IV and Zosyn IV per pharmacy MS acute exacerbation ... stable. Patient to continue steroids IV please see neurology consult, CT head neg, constipation ... continue current treatment per GI. cardiac arrhythmia ... continue treatment per Cardiology Nutritional Asmnt/Malnutr-PDOC - Dietary Evaluation Malnutrition Findings (Please click <Entered> for more info): Nutritional Asmnt/Malnutrition Start: 01/08/17 12: 55 Text: Status: Complete Freq: Document 01/08/17 12:56 GSUN (Rec: 01/08/17 13:16 GSUN [id number]) Nutritional Asmnt/Malnutrition Patient General Information Nutritional Screening Consult Diagnosis ALOC, acute MS exacerbation Pertinent Medical Hx/Surgical Hx Dementia, multiple sclerosis, constipation Subjective Information 76 year old male from SNF. RD consult for laura Huntley. Per RN notes, facial twitching on adm, currently NPO with swallow eval pending. Pt was awake during visit, followed RD with eyes, did not provide any information. Mild wasting to chest noted, loose skin to arms. Current Diet Order/ Nutrition Support NPO Pertinent Medications Vitamin C, Oscal W/Vitamin D, Vitamin B12, D5-0.45ns, Dulcolax, Colace Pertinent Labs 01/08: reviewed. Glucose 148H Nutritional Hx/Data Height 1.85 m Height (Calculated Centimeters) 185.4 Current Weight (lbs) 69.49 kg Weight (Calculated Kilograms) 69.5 Weight (Calculated Grams) 93967.4 Supai Body Weight 184 Weight Status Approriate GI Symptoms Usual diet at home [facility]: pureed, large portion lunch and dinner, 4oz house supplement Skin Integrity/Comment: Audi 12. Pressure area r foot and upper back, abrasion l knee and r leg Estimated Nutritional Goals BEE in Kcals: Using Current wt Calories/Kcals/Kg IBW 184lb/83.6kg with consideration skin integrity and BMI Kcals Calculated 2089-250kcal (25-30kcal/kg) Protein: Using Current wt Protein Calculated 84-109g (1-1.3g/kg) Fluid: ml 2089-2508ml (1ml/kcal) Nutritional Problem 2. 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 Recommend regular diet, diet texture per swallow eval (pending). SNF order pureed. Expected Outcomes/Goals Expected Outcomes/Goals 1. PO intake to meet at least 75% of estimated nutritional needs.
[2017-01-21] MEDS: Calcium Carb/Vit D 500 mg/200 U Tab PO SCH (09:03)
[2017-01-21] MEDS: Atorvastatin Calcium 10 MG TAB PO SCH (09:03)
[2017-01-21] MEDS: Multivitamin w/ Minerals Tab PO SCH (09:03)
[2017-01-21] MEDS: Aspirin 81mg Chewable Tab PO SCH (09:04)
[2017-01-21] MEDS: POLYETHYLENE GLYCOL 3350 17 GM PACK PO SCH ×2 (09:04→17:26)
[2017-01-21] MEDS: Levetiracetam 500mg/100mL 500 MG/100 ML BAG IV SCH ×2 (09:04→22:41)
[2017-01-21] MEDS: Potassium Chloride 20 mEq ER Tab PO SCH (09:04)
[2017-01-21] MEDS: methylPREDNISolone SS 40 mg Vial IVP SCH ×2 (09:04→22:40)
[2017-01-21] MEDS: Polyvinyl Alcohol Ophth Soln 15 mL Bottle EACH EYE SCH ×2 (09:05→17:26)
--- NOTE | 2017-01-21 09:29 | Diagnostic Imaging Report ---
KUB single view HISTORY: Constipation COMPARISON: Barium enema on 01/19/2017 FINDINGS: Persistent extensive distended loops of bowel are noted with rectal contrast within the colon from previous examination. There is probable minimal diverticulosis. IMPRESSION: Persistent extensive distended loops of bowel suggestive of a severe colonic ileus. Residual contrast is seen within the colon from previous examination. Please correlate clinically findings and colonoscopy results.
--- NOTE | 2017-01-21 11:46 | Infectious Disease Prog Note ---
Infectious Disease Subjective - Review of Systems Service Date: 01/21/17 Subjective: There is no new change, there is no fever. Doing better. Infectious Disease Objective - Results Result Diagrams: 01/20/17 05:44 01/20/17 05:44 Recent Labs: Laboratory Last Values WBC 18.2 Th/cmm (4.8-10.8) H 01/20/17 05:44 RBC 4.34 Mil/cmm (3.80-5.80) 01/20/17 05:44 Hgb 13.8 gm/dL (12-16) 01/20/17 05:44 Hct 41.6 % (41.0-60) 01/20/17 05:44 MCV 95.8 fl (80-99) 01/20/17 05:44 MCH 31.7 pg (27.0-31.0) H 01/20/17 05:44 MCHC Differential 33.1 pg (28.0-36.0) 01/20/17 05:44 RDW 13.3 % (11.5-20.0) 01/20/17 05:44 Plt Count 137 Th/cmm (150-400) L D 01/20/17 05:44 MPV 9.2 fl 01/20/17 05:44 Neutrophils % [place] 01/18/17 05:37 Band Neutrophils % 2 % (0-10) 01/20/17 05:44 Lymphocytes % [place] 01/18/17 05:37 Monocytes % [place] 01/18/17 05:37 Eosinophils % [place] 01/18/17 05:37 Basophils % [place] 01/18/17 05:37 Neutrophils (Manual) 90 % (40-80) H 01/20/17 05:44 Lymphocytes 4 % (20-50) L 01/20/17 05:44 Monocytes 3 % (2-10) 01/20/17 05:44 Eosinophils 1 % (0-5) 01/20/17 05:44 Basophils 0 % (0-3) 01/19/17 10:00 Platelet Estimate ADEQUATE (NORMAL) 01/19/17 10:00 Platelet Morphology NORMAL (NORMAL) 01/19/17 10:00 Anisocytosis 1+ 01/06/17 12:32 RBC Morph Micro Appear NORMAL (NORMAL) 01/19/17 10:00 PT 12.9 SECONDS (9.5-11.5) H 01/06/17 10:50 INR 1.23 (0.5-1.4) 01/06/17 10:50 PTT (Actin FS) 37.0 SECONDS (26.0-38.0) 01/06/17 10:50 Sodium 133 mEq/L (136-145) L 01/20/17 05:44 Potassium 4.1 mEq/L (3.5-5.1) 01/20/17 05:44 Chloride 101 mEq/L (98-107) 01/20/17 05:44 Carbon Dioxide 26.9 mEq/L (21.0-31.0) 01/20/17 05:44 Anion Gap 9.2 (7.0-16.0) 01/20/17 05:44 BUN 14 mg/dL (7-25) 01/20/17 05:44 Creatinine 0.5 mg/dL (0.7-1.3) L 01/20/17 05:44 Est GFR ( Amer) TNP 01/20/17 05:44 Est GFR (Non-Af Amer) TNP 01/20/17 05:44 BUN/Creatinine Ratio 28.0 01/20/17 05:44 Glucose 104 mg/dL (70-105) 01/20/17 05:44 POC Glucose 117 MG/DL (70 - 105) H 01/21/17 11:25 Hemoglobin A1c % 5.7 % (4.0-6.0) 01/14/17 09:07 Whole Bld Lactic Acid 0.95 mmol/L (0.60-1.99) 01/06/17 10:53 Calcium 8.0 mg/dL (8.6-10.3) L 01/20/17 05:44 Phosphorus 2.2 mg/dL (2.5-5.0) L 01/16/17 05:00 Magnesium 2.3 mg/dL (1.9-2.7) 01/15/17 04:50 Total Bilirubin 0.7 mg/dL (0.3-1.0) 01/20/17 05:44 AST 24 U/L (13-39) 01/20/17 05:44 ALT 22 U/L (7-52) 01/20/17 05:44 Alkaline Phosphatase 53 U/L (34-104) 01/20/17 05:44 Creatine Kinase 52 U/L (30-223) 01/06/17 10:50 B-Natriuretic Peptide 189.0 pg/mL (5.0-100.0) H 01/18/17 05:37 Total Protein 5.1 gm/dL (6.0-8.3) L 01/20/17 05:44 Albumin 2.7 gm/dL (4.2-5.5) L 01/20/17 05:44 Globulin 2.4 gm/dL 01/20/17 05:44 Albumin/Globulin Ratio 1.1 (1.0-1.8) 01/20/17 05:44 Triglycerides 343 mg/dL (<150) H 01/11/17 09:15 Cholesterol 163 mg/dL (<200) 01/11/17 09:15 LDL Cholesterol Direct 82 mg/dL (75-193) 01/11/17 09:15 HDL Cholesterol 46 mg/dL (23-92) 01/11/17 09:15 TSH 0.39 uIU/ml (0.34-5.60) 01/06/17 11:59 PTH Intact 31 pg/mL (15-65) 01/06/17 12:09 Urine Source RAE PORT 01/15/17 14:00 Urine Color YELLOW 01/15/17 14:00 Urine Clarity SLIGHT CLOUDY (CLEAR) 01/15/17 14:00 Urine pH 6.0 (4.6 - 8.0) 01/15/17 14:00 Ur Specific [place] 1.020 (1.005-1.030) 01/15/17 14:00 Urine Protein NEGATIVE mg/dL (NEGATIVE) 01/15/17 14:00 Urine Glucose (UA) >=1000 mg/dL (NEGATIVE) H 01/15/17 14:00 Urine Ketones NEGATIVE mg/dL (NEGATIVE) 01/15/17 14:00 Urine Blood MODERATE (NEGATIVE) H 01/15/17 14:00 Urine Nitrate NEGATIVE (NEGATIVE) 01/15/17 14:00 Urine Bilirubin NEGATIVE (NEGATIVE) 01/15/17 14:00 Urine Urobilinogen 0.2 E.U./dL (0.2 - 1.0) 01/15/17 14:00 Ur Leukocyte Esterase NEGATIVE (NEGATIVE) 01/15/17 14:00 Urine RBC 10-25 /hpf (0-5) H 01/15/17 14:00 Urine WBC 2-5 /hpf (0-5) H 01/15/17 14:00 Ur Epithelial Cells FEW /lpf (FEW) 01/15/17 14:00 Amorphous Sediment MODERATE URATES (NONE SEEN) 01/11/17 16:00 Urine Bacteria FEW /hpf (NONE SEEN) 01/15/17 14:00 Fine Granular Casts 0-2 /lpf (NONE SEEN) H 01/11/17 16:00 Urine Mucus FEW /lpf (FEW) 01/15/17 14:00 Urine Yeast FEW /hpf (NONE SEEN) H 01/11/17 16:00 Gentamicin Peak 5.3 ug/ml (4.0-8.0) L 01/20/17 16:38 Gentamicin Trough 1.3 ug/ml (0.2-2.0) 01/21/17 02:13 Vancomycin Trough 7.3 ug/mL (10-20) L 01/14/17 08:05 - Physical Exam Vitals and I&O: Vital Signs Temp 97.7 F 01/21/17 08:15 Pulse 89 01/21/17 11:33 Resp 18 01/21/17 11:33 BP 103/67 01/21/17 08:15 Pulse Ox 97 01/21/17 11:33 Intake & Output 01/20/17 01/21/17 01/21/17 18:59 06:59 18:59 Intake Total 1203.5 100 Output Total 1200 Balance 1203.5 -1100 Weight (lbs) 65.363 kg Intake: Intake, IV Amount 1203.5 100 D5-0.9NS w/KCL 20mEq 1, 1000 000 ml @ 50 mls/hr IV . Q20H [facility] Rx#:[id number] Gentamicin 140 mg In 103.5 Sodium Chloride 0.9% 100 ml @ 100 mls/hr IV Q12H [facility] Rx#:[id number] Levetiracetam 500mg/100mL 100 100 500 mg In 100 ml @ 400 mls/hr IV Q12HR@0900,2100 [facility] Rx#:[id number] Output: Urine 1200 Other: # Bowel Movements 0 Stool Characteristics Liquid Brown Active Medications: Current Medications Acetaminophen (Tylenol 650mg Supp) 650 mg RC Q4H PRN PRN Reason: Fever > 101 Stop: 03/10/17 13:04 Last Admin: 01/12/17 03:37 Dose: 650 mg Albuterol/Ipratropium (Duoneb Neb) 3 ml HHN Q4HRT [facility] Stop: 03/11/17 14:59 Last Admin: 01/21/17 11:28 Dose: 3 ml Albuterol/Ipratropium (Duoneb Neb) 3 ml HHN Q2HRT PRN PRN Reason: Wheezing Stop: 03/11/17 13:46 Artificial Tears (Artificial Tears Ophth Soln) 1 drop EACH EYE BID [facility] Stop: 03/08/17 08:59 Last Admin: 01/21/17 09:05 Dose: 1 drop Ascorbic Acid (Vitamin C) 500 mg PO DAILY [facility] Stop: 03/08/17 08:59 Last Admin: 01/21/17 09:04 Dose: 500 mg Aspirin (Aspirin Chewable) 81 mg PO DAILY [facility] Stop: 03/13/17 08:59 Last Admin: 01/21/17 09:04 Dose: 81 mg Atorvastatin Calcium (Lipitor) 20 mg PO DAILY [facility] PRN Reason: Protocol Stop: 03/12/17 16:29 Last Admin: 01/21/17 09:03 Dose: 20 mg Atropine Sulfate (Atropine Syringe) 1 mg IVP Q4HR PRN PRN Reason: HR BELOW 40 Stop: 03/09/17 08:32 Last Admin: 01/09/17 01:00 Dose: 1 mg Bisacodyl (Dulcolax 10 Mg Supp) 10 mg RC HS [facility] Stop: 03/14/17 20:59 Last Admin: 01/20/17 21:18 Dose: 10 mg Calcium/Vitamin D (Oscal W/Vitamin D) 1 tab PO DAILY [facility] Stop: 03/08/17 08:59 Last Admin: 01/21/17 09:03 Dose: 1 tab Cyanocobalamin (Vitamin B12) 500 mcg PO DAILY [facility] Stop: 03/08/17 08:59 Last Admin: 01/21/17 09:03 Dose: 500 mcg Diltiazem HCl (Cardizem) 20 mg IVP Q4HR PRN PRN Reason: FOR HR>130 Stop: 03/13/17 03:53 Last Admin: 01/12/17 20:50 Dose: 20 mg Docusate Sodium (Colace) 100 mg PO DAILY [facility] Stop: 03/08/17 08:59 Last Admin: 01/21/17 09:03 Dose: 100 mg Levetiracetam (Keppra Pb) 500 mg in 100 mls @ 400 mls/hr IV Q12HR@0900,2100 [facility] Stop: 03/13/17 10:29 Last Admin: 01/21/17 09:04 Dose: 400 mls/hr Potassium Chloride/Dextrose/Sod Cl (D5-0.9ns W/Kcl 20meq) 1,000 mls @ 50 mls/ hr IV .Q20H [facility] Stop: 03/20/17 08:44 Last Admin: 01/20/17 13:52 Dose: 50 mls/hr Gentamicin Sulfate 140 mg/ (Sodium Chloride) 103.5 mls @ 100 mls/hr IV Q12HR@ 0200,1400 [facility] Stop: 03/21/17 02:59 Insulin Aspart (Novolog Insulin Sliding Scale) 2 - 12 units SUBQ ACHS [facility] PRN Reason: Protocol Stop: 03/16/17 20:59 Last Admin: 01/21/17 11:41 Dose: Not Given Lorazepam (Ativan) 1 mg IVP Q4HR PRN; Protocol PRN Reason: Seizure Stop: 03/15/17 09:07 Methylprednisolone Sodium Succinate (Solu-Medrol) 20 mg IVP Q12HR [facility] Stop: 03/19/17 15:43 Last Admin: 01/21/17 09:04 Dose: 20 mg Mineral Oil (Fleet Mineral Oil) 135 ml RC DAILY PRN PRN Reason: CONSTIPATION Stop: 03/13/17 12:59 Last Admin: 01/14/17 10:49 Dose: 135 ml Mineral Oil (Mineral Oil 30 Ml) 30 ml NG Q6HR [facility] Stop: 03/15/17 11:59 Last Admin: 01/21/17 06:54 Dose: 30 ml Miscellaneous (Vte Chemical Prophylaxis Screen/ Admission) 1 ea [facility] PRN PRN PRN Reason: PROTOCOL Stop: 03/08/17 11:10 Miscellaneous (Probiotic Screen) 1 ea MC PRN PRN PRN Reason: PROTOCOL Stop: 03/13/17 13:54 Miscellaneous (Gentamicin Iv Per Pharmacy) 1 ea PRN PRN PRN Reason: PROTOCOL Stop: 03/19/17 08:25 Polyethylene Glycol (Miralax) 17 gm PO BID [facility] Stop: 03/14/17 16:59 Last Admin: 01/21/17 09:04 Dose: 17 gm Potassium Chloride (Klor-Con) 20 meq PO DAILY [facility] Stop: 03/08/17 08:59 Last Admin: 01/21/17 09:04 Dose: 20 meq General: no acute distress, cachectic HEENT: atraumatic, normocephalic, PERRLA, EOMI, moist mucous membrane Neck: supple, no thyromegaly Cardiovascular: S1S2, regular, no systolic murmur Lungs: clear to auscultation bilaterally, clear to percussion Abdomen: soft, distended, no tender Extremities: no cyanosis, no clubbing, no edema Neurological: awake, alert Skin: intact Infectious Disease Assmt/Plan - Problem List Patient Problems: All Active Problems Constipation (Acute) K59.00 Dementia (Acute) F03.90 Facial twitching (Acute) G51.4 Hypocalcemia (Acute) E83.51 Hypokalemia (Acute) E87.6 Hypomagnesemia (Acute) E83.42 Hypophosphatemia (Acute) E83.39 Ileus (Acute) K56.7 Leukocytosis (Acute) D72.829 Multiple sclerosis (Acute) G35 Seizure disorder (Acute) G40.909 Sinus bradycardia (Acute) R00.1 - Assessment Assessment: 1. Leukocytosis and low-grade fever, sepsis.worse. ? Steroids. likley 2/2 ileus. 2. Urinary tract infection. 3. Possible common bile duct obstruction distal end, cholelithiasis. 4. Fecal impaction. 5. Supraventricular tachycardia. 6. Multiple sclerosis. 7. Dementia. 8. constipation, Ileus. - Plan Plan: Antibiotics gentamicin. Decrease steroids. F/U KUB. Nutritional Asmnt/Malnutr-PDOC - Dietary Evaluation Malnutrition Findings (Please click <Entered> for more info): Nutritional Asmnt/Malnutrition Start: 01/08/17 12: 55 Text: Status: Complete Freq: Document 01/08/17 12:56 GSUN (Rec: 01/08/17 13:16 GSUN [id number]) Nutritional Asmnt/Malnutrition Patient General Information Nutritional Screening Consult Diagnosis ALOC, acute MS exacerbation Pertinent Medical Hx/Surgical Hx Dementia, multiple sclerosis, constipation Subjective Information 76 year old male from SNF. RD consult for laura Huntley. Per RN notes, facial twitching on adm, currently NPO with swallow eval pending. Pt was awake during visit, followed RD with eyes, did not provide any information. Mild wasting to chest noted, loose skin to arms. Current Diet Order/ Nutrition Support NPO Pertinent Medications Vitamin C, Oscal W/Vitamin D, Vitamin B12, D5-0.45ns, Dulcolax, Colace Pertinent Labs 01/08: reviewed. Glucose 148H Nutritional Hx/Data Height 1.85 m Height (Calculated Centimeters) 185.4 Current Weight (lbs) 69.49 kg Weight (Calculated Kilograms) 69.5 Weight (Calculated Grams) 66104.4 [place] Body Weight 184 Weight Status Approriate GI Symptoms Usual diet at home [place] [facility]: pureed, large portion lunch and dinner, 4oz house supplement Skin Integrity/Comment: Audi 12. Pressure area r foot and upper back, abrasion l knee and r leg Estimated Nutritional Goals BEE in Kcals: Using Current wt Calories/Kcals/Kg IBW 184lb/83.6kg with consideration skin integrity and BMI Kcals Calculated 2090-2508kcal (25-30kcal/kg) Protein: Using Current wt Protein Calculated 84-109g (1-1.3g/kg) Fluid: ml 2090-2508ml (1ml/kcal) Nutritional Problem 2. 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 Recommend regular diet, diet texture per swallow eval (pending). SNF order pureed. Expected Outcomes/Goals Expected Outcomes/Goals 1. PO intake to meet at least 75% of estimated nutritional needs.
[2017-01-21] MEDS: D5-0.9NS w/KCL 20mEq 1,000 ML IV SCH ×2 (14:15→22:41)
[2017-01-22] MEDS: Albuterol/Ipratropium Neb 3 ML AERS HHN SCH ×6 (03:34→22:32)
[2017-01-22 06:18] LABS: ANION GAP 9.5 (7.0-16.0); BUN - UREA NITROGEN 9 mg/dL (7-25); CALCIUM SERUM 8.2 mg/dL (8.6-10.3); CARBON DIOXIDE 25.5 mEq/L (21.0-31.0); CHLORIDE 104 mEq/L (98-107); CREATININE - SERUM 0.6 mg/dL (0.7-1.3); GLUCOSE 161 mg/dL (70-105); SODIUM SERUM 135 mEq/L (136-145)
[2017-01-22 06:38] LABS: HEMATOCRIT 39.8 % (41.0-60); HEMOGLOBIN 13.6 gm/dL (12-16); MEAN CELL VOLUME 95.8 fl (80-99); MEAN CORPUSCULAR HEMOGLOBIN 32.6 pg (27.0-31.0); RED BLOOD COUNT 4.16 Mil/cmm (3.80-5.80); RED CELL DISTRIBUTION WIDTH 13.5 % (11.5-20.0); WHITE BLOOD COUNT 18.9 Th/cmm (4.8-10.8)
[2017-01-22 06:39] LABS: PLATELET COUNT 109 Th/cmm (150-400)
[2017-01-22 06:50] LABS: NEUTROPHILS 87 % (40-80); TOTAL CELLS COUNTED 100
[2017-01-22 06:51] LABS: BAND NEUTROPHILE 4 % (0-10)
[2017-01-22] MEDS: INSULIN ASPART SLIDING SCALE 100 UNITS/ML UNIT SUBQ SCH ×4 (07:00→22:22)
--- NOTE | 2017-01-22 08:22 | General Progress Note ---
Subjective - Review of Systems Service Date: 01/22/17 Subjective: No BM's last night. Abd slightly distended. No acute distress. Afebrile. Awake , Alert. NG tube feeding Objective - Results Result Diagrams: 01/22/17 05:46 01/22/17 05:46 Recent Labs: Laboratory Last Values WBC 18.9 Th/cmm (4.8-10.8) H 01/22/17 05:46 RBC 4.16 Mil/cmm (3.80-5.80) 01/22/17 05:46 Hgb 13.6 gm/dL (12-16) 01/22/17 05:46 Hct 39.8 % (41.0-60) L 01/22/17 05:46 MCV 95.8 fl (80-99) 01/22/17 05:46 MCH 32.6 pg (27.0-31.0) H 01/22/17 05:46 MCHC Differential 34.0 pg (28.0-36.0) 01/22/17 05:46 RDW 13.5 % (11.5-20.0) 01/22/17 05:46 Plt Count 109 Th/cmm (150-400) L D 01/22/17 05:46 MPV 9.0 fl 01/22/17 05:46 Neutrophils % COREMAKER APPRENTICE 01/18/17 05:37 Band Neutrophils % 4 % (0-10) 01/22/17 05:46 Lymphocytes % COREMAKER APPRENTICE 01/18/17 05:37 Monocytes % COREMAKER APPRENTICE 01/18/17 05:37 Eosinophils % COREMAKER APPRENTICE 01/18/17 05:37 Basophils % COREMAKER APPRENTICE 01/18/17 05:37 Neutrophils (Manual) 87 % (40-80) H 01/22/17 05:46 Lymphocytes 6 % (20-50) L 01/22/17 05:46 Monocytes 3 % (2-10) 01/22/17 05:46 Eosinophils 1 % (0-5) 01/20/17 05:44 Basophils 0 % (0-3) 01/19/17 10:00 Platelet Estimate ADEQUATE (NORMAL) 01/19/17 10:00 Platelet Morphology NORMAL (NORMAL) 01/19/17 10:00 Anisocytosis 1+ 01/06/17 12:32 RBC Morph Micro Appear NORMAL (NORMAL) 01/19/17 10:00 PT 12.9 SECONDS (9.5-11.5) H 01/06/17 10:50 INR 1.23 (0.5-1.4) 01/06/17 10:50 PTT (Actin FS) 37.0 SECONDS (26.0-38.0) 01/06/17 10:50 Sodium 135 mEq/L (136-145) L 01/22/17 05:46 Potassium 4.0 mEq/L (3.5-5.1) 01/22/17 05:46 Chloride 104 mEq/L (98-107) 01/22/17 05:46 Carbon Dioxide 25.5 mEq/L (21.0-31.0) 01/22/17 05:46 Anion Gap 9.5 (7.0-16.0) 01/22/17 05:46 BUN 9 mg/dL (7-25) 01/22/17 05:46 Creatinine 0.6 mg/dL (0.7-1.3) L 01/22/17 05:46 Est GFR ( Amer) TNP 01/22/17 05:46 Est GFR (Non-Af Amer) TNP 01/22/17 05:46 BUN/Creatinine Ratio 15.0 01/22/17 05:46 Glucose 161 mg/dL (70-105) H 01/22/17 05:46 POC Glucose 144 MG/DL (70 - 105) H 01/22/17 06:09 Hemoglobin A1c % 5.7 % (4.0-6.0) 01/14/17 09:07 Whole Bld Lactic Acid 0.95 mmol/L (0.60-1.99) 01/06/17 10:53 Calcium 8.2 mg/dL (8.6-10.3) L 01/22/17 05:46 Phosphorus 2.2 mg/dL (2.5-5.0) L 01/16/17 05:00 Magnesium 2.3 mg/dL (1.9-2.7) 01/15/17 04:50 Total Bilirubin 0.7 mg/dL (0.3-1.0) 01/20/17 05:44 AST 24 U/L (13-39) 01/20/17 05:44 ALT 22 U/L (7-52) 01/20/17 05:44 Alkaline Phosphatase 53 U/L (34-104) 01/20/17 05:44 Creatine Kinase 52 U/L (30-223) 01/06/17 10:50 B-Natriuretic Peptide 189.0 pg/mL (5.0-100.0) H 01/18/17 05:37 Total Protein 5.1 gm/dL (6.0-8.3) L 01/20/17 05:44 Albumin 2.7 gm/dL (4.2-5.5) L 01/20/17 05:44 Globulin 2.4 gm/dL 01/20/17 05:44 Albumin/Globulin Ratio 1.1 (1.0-1.8) 01/20/17 05:44 Triglycerides 343 mg/dL (<150) H 01/11/17 09:15 Cholesterol 163 mg/dL (<200) 01/11/17 09:15 LDL Cholesterol Direct 82 mg/dL (75-193) 01/11/17 09:15 HDL Cholesterol 46 mg/dL (23-92) 01/11/17 09:15 TSH 0.39 uIU/ml (0.34-5.60) 01/06/17 11:59 PTH Intact 31 pg/mL (15-65) 01/06/17 12:09 Urine Source RAE PORT 01/15/17 14:00 Urine Color YELLOW 01/15/17 14:00 Urine Clarity SLIGHT CLOUDY (CLEAR) 01/15/17 14:00 Urine pH 6.0 (4.6 - 8.0) 01/15/17 14:00 Ur Specific [place] 1.020 (1.005-1.030) 01/15/17 14:00 Urine Protein NEGATIVE mg/dL (NEGATIVE) 01/15/17 14:00 Urine Glucose (UA) >=1000 mg/dL (NEGATIVE) H 01/15/17 14:00 Urine Ketones NEGATIVE mg/dL (NEGATIVE) 01/15/17 14:00 Urine Blood MODERATE (NEGATIVE) H 01/15/17 14:00 Urine Nitrate NEGATIVE (NEGATIVE) 01/15/17 14:00 Urine Bilirubin NEGATIVE (NEGATIVE) 01/15/17 14:00 Urine Urobilinogen 0.2 E.U./dL (0.2 - 1.0) 01/15/17 14:00 Ur Leukocyte Esterase NEGATIVE (NEGATIVE) 01/15/17 14:00 Urine RBC 10-25 /hpf (0-5) H 01/15/17 14:00 Urine WBC 2-5 /hpf (0-5) H 01/15/17 14:00 Ur Epithelial Cells FEW /lpf (FEW) 01/15/17 14:00 Amorphous Sediment MODERATE URATES (NONE SEEN) 01/11/17 16:00 Urine Bacteria FEW /hpf (NONE SEEN) 01/15/17 14:00 Fine Granular Casts 0-2 /lpf (NONE SEEN) H 01/11/17 16:00 Urine Mucus FEW /lpf (FEW) 01/15/17 14:00 Urine Yeast FEW /hpf (NONE SEEN) H 01/11/17 16:00 Gentamicin Peak 5.3 ug/ml (4.0-8.0) L 01/20/17 16:38 Gentamicin Trough 1.3 ug/ml (0.2-2.0) 01/21/17 02:13 Vancomycin Trough 7.3 ug/mL (10-20) L 01/14/17 08:05 - Physical Exam Vitals and I&O: Vital Signs Temp 98.3 F 01/22/17 07:52 Pulse 108 01/22/17 07:52 Resp 18 01/22/17 07:52 BP 101/64 01/22/17 07:52 Pulse Ox 97 01/22/17 07:52 Intake & Output 01/21/17 01/22/17 01/22/17 18:59 06:59 18:59 Intake Total 1803.5 603.5 Output Total 1700 1200 Balance 103.5 -596.5 Weight (lbs) 66.95 kg 60.282 kg Intake: Intake, IV Amount 1203.5 203.5 D5-0.9NS w/KCL 20mEq 1, 1000 000 ml @ 50 mls/hr IV . Q20H [facility] Rx#:[id number] Gentamicin 140 mg In 103.5 103.5 Sodium Chloride 0.9% 100 ml @ 100 mls/hr IV Q12HR@ 0200,1400 [facility] Rx#: [id number] Levetiracetam 500mg/100mL 100 100 500 mg In 100 ml @ 400 mls/hr IV Q12HR@0900,2100 [facility] Rx#:[id number] Tube Feeding 300 400 Other 300 Output: Urine 1700 1200 Other: # Bowel Movements 1 3 Stool Characteristics Soft Formed Active Medications: Current Medications Acetaminophen (Tylenol 650mg Supp) 650 mg RC Q4H PRN PRN Reason: Fever > 101 Stop: 03/10/17 13:04 Last Admin: 01/12/17 03:37 Dose: 650 mg Albuterol/Ipratropium (Duoneb Neb) 3 ml HHN Q4HRT [facility] Stop: 03/11/17 14:59 Last Admin: 01/22/17 06:59 Dose: 3 ml Albuterol/Ipratropium (Duoneb Neb) 3 ml HHN Q2HRT PRN PRN Reason: Wheezing Stop: 03/11/17 13:46 Artificial Tears (Artificial Tears Ophth Soln) 1 drop EACH EYE BID [facility] Stop: 03/08/17 08:59 Last Admin: 01/21/17 17:26 Dose: 1 drop Ascorbic Acid (Vitamin C) 500 mg PO DAILY [facility] Stop: 03/08/17 08:59 Last Admin: 01/21/17 09:04 Dose: 500 mg Aspirin (Aspirin Chewable) 81 mg PO DAILY [facility] Stop: 03/13/17 08:59 Last Admin: 01/21/17 09:04 Dose: 81 mg Atorvastatin Calcium (Lipitor) 20 mg PO DAILY [facility]Y PRN Reason: Protocol Stop: 03/12/17 16:29 Last Admin: 01/21/17 09:03 Dose: 20 mg Atropine Sulfate (Atropine Syringe) 1 mg IVP Q4HR PRN PRN Reason: HR BELOW 40 Stop: 03/09/17 08:32 Last Admin: 01/09/17 01:00 Dose: 1 mg Bisacodyl (Dulcolax 10 Mg Supp) 10 mg RC HS [facility] Stop: 03/14/17 20:59 Last Admin: 01/21/17 22:41 Dose: 10 mg Calcium/Vitamin D (Oscal W/Vitamin D) 1 tab PO DAILY [facility] Stop: 03/08/17 08:59 Last Admin: 01/21/17 09:03 Dose: 1 tab Cyanocobalamin (Vitamin B12) 500 mcg PO DAILY [facility] Stop: 03/08/17 08:59 Last Admin: 01/21/17 09:03 Dose: 500 mcg Diltiazem HCl (Cardizem) 20 mg IVP Q4HR PRN PRN Reason: FOR HR>130 Stop: 03/13/17 03:53 Last Admin: 01/12/17 20:50 Dose: 20 mg Docusate Sodium (Colace) 100 mg PO DAILY [facility] Stop: 03/08/17 08:59 Last Admin: 01/21/17 09:03 Dose: 100 mg Levetiracetam (Keppra Pb) 500 mg in 100 mls @ 400 mls/hr IV Q12HR@0900,2100 [facility] Stop: 03/13/17 10:29 Last Infusion: 01/21/17 23:41 Dose: Infused Potassium Chloride/Dextrose/Sod Cl (D5-0.9ns W/Kcl 20meq) 1,000 mls @ 50 mls/ hr IV .Q20H [facility] Stop: 03/20/17 08:44 Last Admin: 01/21/17 22:41 Dose: Not Given Gentamicin Sulfate 140 mg/ (Sodium Chloride) 103.5 mls @ 100 mls/hr IV Q12HR@ 0200,1400 [facility] Stop: 03/21/17 02:59 Last Infusion: 01/22/17 03:00 Dose: Infused Insulin Aspart (Novolog Insulin Sliding Scale) 2 - 12 units SUBQ ACHS [facility]Y PRN Reason: Protocol Stop: 03/16/17 20:59 Last Admin: 01/22/17 07:00 Dose: Not Given Lorazepam (Ativan) 1 mg IVP Q4HR PRN; Protocol PRN Reason: Seizure Stop: 03/15/17 09:07 Methylprednisolone Sodium Succinate (Solu-Medrol) 20 mg IVP Q12HR [facility] Stop: 03/19/17 15:43 Last Admin: 01/21/17 22:40 Dose: 20 mg Mineral Oil (Fleet Mineral Oil) 135 ml RC DAILY PRN PRN Reason: CONSTIPATION Stop: 03/13/17 12:59 Last Admin: 01/14/17 10:49 Dose: 135 ml Mineral Oil (Mineral Oil 30 Ml) 30 ml NG Q6HR [facility] Stop: 03/15/17 11:59 Last Admin: 01/22/17 06:17 Dose: 30 ml Miscellaneous (Vte Chemical Prophylaxis Screen/ Admission) 1 ea PRN PRN PRN Reason: PROTOCOL Stop: 03/08/17 11:10 Miscellaneous (Probiotic Screen) 1 ea PRN PRN PRN Reason: PROTOCOL Stop: 03/13/17 13:54 Miscellaneous (Gentamicin Iv Per Pharmacy) 1 ea PRN PRN PRN Reason: PROTOCOL Stop: 03/19/17 08:25 Polyethylene Glycol (Miralax) 17 gm PO BID [facility] Stop: 03/14/17 16:59 Last Admin: 01/21/17 17:26 Dose: 17 gm Potassium Chloride (Klor-Con) 20 meq PO DAILY [facility] Stop: 03/08/17 08:59 Last Admin: 01/21/17 09:04 Dose: 20 meq General: Alert, No acute distress HEENT: Atraumatic, PERRLA, EOMI Neck: Supple Cardiovascular: Regular rate, Normal S1, Normal S2 Lungs: Other (wheezing,) Abdomen: Bowel sounds, Distended, Other (non tender, no guarding, no rebound) Extremities: no Clubbing, no Cyanosis, no Edema Assessment/Plan - Problem List Patient Problems: All Active Problems Constipation (Acute) K59.00 Dementia (Acute) F03.90 Facial twitching (Acute) G51.4 Hypocalcemia (Acute) E83.51 Hypokalemia (Acute) E87.6 Hypomagnesemia (Acute) E83.42 Hypophosphatemia (Acute) E83.39 Ileus (Acute) K56.7 Leukocytosis (Acute) D72.829 Multiple sclerosis (Acute) G35 Seizure disorder (Acute) G40.909 Sinus bradycardia (Acute) R00.1 - Assessment Assessment: ALOC ... improved. CT head NAD, CT carotid no significant stenosis. hypotensive ... improved. will continue IV fluid support. hypernatremia Na 156+ hypokalemia ... will change fluids to D5 1/2NS @ 75cc/hr. add KCL to fluids. . Electrolyte imbalance ... will continue to monitor daily and correct as needed. 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 for carotid duplex, results pending. Leukocytosis improved ... continue Vancomycin IV and Zosyn IV per pharmacy. MS acute exacerbation ... stable. Patient to continue steroids IV. Ileus vs SBO .... keep NPO. continue IV fluids. will order KUB for today. cardiac arrhythmia ... continue anti-arrythmics per Cardiology Seizure disorder ... on Keppra UTI +Pseudomonas ... continue current IV antibiotics. Hyperglycemia ... will decrease solumedrol. dc D5W. - Plan Plan: ALOC ... improved. CT head NAD, CT carotid NAD. hypotensive ... improved. will continue IV fluid support. hypernatremia Na 156+ hypokalemia ... will change fluids to D5 1/2NS @ 75cc/hr. add KCL to fluids. check CMP,Mg,Phos,Ca tomorrow. Electrolyte imbalance ... will continue to monitor daily and correct as needed. CVA per MRI head ... management per Dr. Franklin. patient on Heparin drip. for carotid duplex. Leukocytosis improved ... WBC's 10K ... DC Rocephin. Will start Vancomycin IV and Zosyn IV per pharmacy MS acute exacerbation ... stable. Patient to continue steroids IV please see neurology consult, CT head neg, constipation ... continue current treatment per GI. cardiac arrhythmia ... continue treatment per Cardiology Nutritional Asmnt/Malnutr-PDOC - Dietary Evaluation Malnutrition Findings (Please click <Entered> for more info): Nutritional Asmnt/Malnutrition Start: 01/08/17 12: 55 Text: Status: Complete Freq: Document 01/08/17 12:56 GSUN (Rec: 01/08/17 13:16 [email or web address] [id number]) Nutritional Asmnt/Malnutrition Patient General Information Nutritional Screening Consult Diagnosis ALOC, acute MS exacerbation Pertinent Medical Hx/Surgical Hx Dementia, multiple sclerosis, constipation Subjective Information 76 year old male from SNF. RD consult for laura Huntley. Per RN notes, facial twitching on adm, currently NPO with swallow eval pending. Pt was awake during visit, followed RD with eyes, did not provide any information. Mild wasting to chest noted, loose skin to arms. Current Diet Order/ Nutrition Support NPO Pertinent Medications Vitamin C, Oscal W/Vitamin D, Vitamin B12, D5-0.45ns, Dulcolax, Colace Pertinent Labs 01/08: reviewed. Glucose 148H Nutritional Hx/Data Height 1.85 m Height (Calculated Centimeters) 185.4 Current Weight (lbs) 69.49 kg Weight (Calculated Kilograms) 69.5 Weight (Calculated Grams) 87749.4 [place] Body Weight 184 Weight Status Approriate GI Symptoms Usual diet at home [facility]: pureed, large portion lunch and dinner, 4oz house supplement Skin Integrity/Comment: Audi 12. Pressure area r foot and upper back, abrasion l knee and r leg Estimated Nutritional Goals BEE in Kcals: Using Current wt Calories/Kcals/Kg IBW 184lb/83.6kg with consideration skin integrity and BMI Kcals Calculated 2089-2508kcal (25-30kcal/kg) Protein: Using Current wt Protein Calculated 84-109g (1-1.3g/kg) Fluid: ml 2089-2508ml (1ml/kcal) Nutritional Problem 2. 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 Recommend regular diet, diet texture per swallow eval (pending). SNF order pureed. Expected Outcomes/Goals Expected Outcomes/Goals 1. PO intake to meet at least 75% of estimated nutritional needs.
[2017-01-22] MEDS: Aspirin 81mg Chewable Tab PO SCH (08:35)
[2017-01-22] MEDS: Atorvastatin Calcium 10 MG TAB PO SCH (08:35)
[2017-01-22] MEDS: Potassium Chloride 20 mEq ER Tab PO SCH (08:35)
[2017-01-22] MEDS: methylPREDNISolone SS 40 mg Vial IVP SCH ×2 (08:35→22:04)
[2017-01-22] MEDS: Multivitamin w/ Minerals Tab PO SCH (08:35)
[2017-01-22] MEDS: Calcium Carb/Vit D 500 mg/200 U Tab PO SCH (08:35)
[2017-01-22] MEDS: POLYETHYLENE GLYCOL 3350 17 GM PACK PO SCH ×2 (08:36→16:07)
[2017-01-22] MEDS: Levetiracetam 500mg/100mL 500 MG/100 ML BAG IV SCH ×2 (09:45→22:03)
[2017-01-22] MEDS: Polyvinyl Alcohol Ophth Soln 15 mL Bottle EACH EYE SCH ×2 (09:46→16:07)
--- NOTE | 2017-01-22 11:09 | General Progress Note ---
Subjective - Review of Systems Service Date: 01/22/17 Events since last encounter: patient toxic megacolon,. WBC now 18,000 talked to daughter via phone, will talk to siblings Plan: total colectomy, cholecystectomy, if ok gastrostomy as well Objective - Results Result Diagrams: 01/22/17 05:46 01/22/17 05:46 Recent Labs: Laboratory Last Values WBC 18.9 Th/cmm (4.8-10.8) H 01/22/17 05:46 RBC 4.16 Mil/cmm (3.80-5.80) 01/22/17 05:46 Hgb 13.6 gm/dL (12-16) 01/22/17 05:46 Hct 39.8 % (41.0-60) L 01/22/17 05:46 MCV 95.8 fl (80-99) 01/22/17 05:46 MCH 32.6 pg (27.0-31.0) H 01/22/17 05:46 MCHC Differential 34.0 pg (28.0-36.0) 01/22/17 05:46 RDW 13.5 % (11.5-20.0) 01/22/17 05:46 Plt Count 109 Th/cmm (150-400) L D 01/22/17 05:46 MPV 9.0 fl 01/22/17 05:46 Neutrophils % INSTRUCTOR PRIVATE 01/18/17 05:37 Band Neutrophils % 4 % (0-10) 01/22/17 05:46 Lymphocytes % INSTRUCTOR PRIVATE 01/18/17 05:37 Monocytes % INSTRUCTOR PRIVATE 01/18/17 05:37 Eosinophils % INSTRUCTOR PRIVATE 01/18/17 05:37 Basophils % INSTRUCTOR PRIVATE 01/18/17 05:37 Neutrophils (Manual) 87 % (40-80) H 01/22/17 05:46 Lymphocytes 6 % (20-50) L 01/22/17 05:46 Monocytes 3 % (2-10) 01/22/17 05:46 Eosinophils 1 % (0-5) 01/20/17 05:44 Basophils 0 % (0-3) 01/19/17 10:00 Platelet Estimate ADEQUATE (NORMAL) 01/19/17 10:00 Platelet Morphology NORMAL (NORMAL) 01/19/17 10:00 Anisocytosis 1+ 01/06/17 12:32 RBC Morph Micro Appear NORMAL (NORMAL) 01/19/17 10:00 PT 12.9 SECONDS (9.5-11.5) H 01/06/17 10:50 INR 1.23 (0.5-1.4) 01/06/17 10:50 PTT (Actin FS) 37.0 SECONDS (26.0-38.0) 01/06/17 10:50 Sodium 135 mEq/L (136-145) L 01/22/17 05:46 Potassium 4.0 mEq/L (3.5-5.1) 01/22/17 05:46 Chloride 104 mEq/L (98-107) 01/22/17 05:46 Carbon Dioxide 25.5 mEq/L (21.0-31.0) 01/22/17 05:46 Anion Gap 9.5 (7.0-16.0) 01/22/17 05:46 BUN 9 mg/dL (7-25) 01/22/17 05:46 Creatinine 0.6 mg/dL (0.7-1.3) L 01/22/17 05:46 Est GFR ( Amer) TNP 01/22/17 05:46 Est GFR (Non-Af Amer) TNP 01/22/17 05:46 BUN/Creatinine Ratio 15.0 01/22/17 05:46 Glucose 161 mg/dL (70-105) H 01/22/17 05:46 POC Glucose 144 MG/DL (70 - 105) H 01/22/17 06:09 Hemoglobin A1c % 5.7 % (4.0-6.0) 01/14/17 09:07 Whole Bld Lactic Acid 0.95 mmol/L (0.60-1.99) 01/06/17 10:53 Calcium 8.2 mg/dL (8.6-10.3) L 01/22/17 05:46 Phosphorus 2.2 mg/dL (2.5-5.0) L 01/16/17 05:00 Magnesium 2.3 mg/dL (1.9-2.7) 01/15/17 04:50 Total Bilirubin 0.7 mg/dL (0.3-1.0) 01/20/17 05:44 AST 24 U/L (13-39) 01/20/17 05:44 ALT 22 U/L (7-52) 01/20/17 05:44 Alkaline Phosphatase 53 U/L (34-104) 01/20/17 05:44 Creatine Kinase 52 U/L (30-223) 01/06/17 10:50 B-Natriuretic Peptide 189.0 pg/mL (5.0-100.0) H 01/18/17 05:37 Total Protein 5.1 gm/dL (6.0-8.3) L 01/20/17 05:44 Albumin 2.7 gm/dL (4.2-5.5) L 01/20/17 05:44 Globulin 2.4 gm/dL 01/20/17 05:44 Albumin/Globulin Ratio 1.1 (1.0-1.8) 01/20/17 05:44 Triglycerides 343 mg/dL (<150) H 01/11/17 09:15 Cholesterol 163 mg/dL (<200) 01/11/17 09:15 LDL Cholesterol Direct 82 mg/dL (75-193) 01/11/17 09:15 HDL Cholesterol 46 mg/dL (23-92) 01/11/17 09:15 TSH 0.39 uIU/ml (0.34-5.60) 01/06/17 11:59 PTH Intact 31 pg/mL (15-65) 01/06/17 12:09 Urine Source RAE PORT 01/15/17 14:00 Urine Color YELLOW 01/15/17 14:00 Urine Clarity SLIGHT CLOUDY (CLEAR) 01/15/17 14:00 Urine pH 6.0 (4.6 - 8.0) 01/15/17 14:00 Ur Specific Peak 1.020 (1.005-1.030) 01/15/17 14:00 Urine Protein NEGATIVE mg/dL (NEGATIVE) 01/15/17 14:00 Urine Glucose (UA) >=1000 mg/dL (NEGATIVE) H 01/15/17 14:00 Urine Ketones NEGATIVE mg/dL (NEGATIVE) 01/15/17 14:00 Urine Blood MODERATE (NEGATIVE) H 01/15/17 14:00 Urine Nitrate NEGATIVE (NEGATIVE) 01/15/17 14:00 Urine Bilirubin NEGATIVE (NEGATIVE) 01/15/17 14:00 Urine Urobilinogen 0.2 E.U./dL (0.2 - 1.0) 01/15/17 14:00 Ur Leukocyte Esterase NEGATIVE (NEGATIVE) 01/15/17 14:00 Urine RBC 10-25 /hpf (0-5) H 01/15/17 14:00 Urine WBC 2-5 /hpf (0-5) H 01/15/17 14:00 Ur Epithelial Cells FEW /lpf (FEW) 01/15/17 14:00 Amorphous Sediment MODERATE URATES (NONE SEEN) 01/11/17 16:00 Urine Bacteria FEW /hpf (NONE SEEN) 01/15/17 14:00 Fine Granular Casts 0-2 /lpf (NONE SEEN) H 01/11/17 16:00 Urine Mucus FEW /lpf (FEW) 01/15/17 14:00 Urine Yeast FEW /hpf (NONE SEEN) H 01/11/17 16:00 Gentamicin Peak 5.3 ug/ml (4.0-8.0) L 01/20/17 16:38 Gentamicin Trough 1.3 ug/ml (0.2-2.0) 01/21/17 02:13 Vancomycin Trough 7.3 ug/mL (10-20) L 01/14/17 08:05 - Physical Exam Vitals and I&O: Vital Signs Temp 98.3 F 01/22/17 07:52 Pulse 108 01/22/17 07:52 Resp 18 01/22/17 08:00 BP 101/64 01/22/17 07:52 Pulse Ox 97 01/22/17 07:52 Intake & Output 01/21/17 01/22/17 01/22/17 18:59 06:59 18:59 Intake Total 1803.5 603.5 Output Total 1700 1200 Balance 103.5 -596.5 Weight (lbs) 66.95 kg 60.282 kg Intake: Intake, IV Amount 1203.5 203.5 D5-0.9NS w/KCL 20mEq 1, 1000 000 ml @ 50 mls/hr IV . Q20H [facility] Rx#:[id number] Gentamicin 140 mg In 103.5 103.5 Sodium Chloride 0.9% 100 ml @ 100 mls/hr IV Q12HR@ 0200,1400 [facility] Rx#: [id number] Levetiracetam 500mg/100mL 100 100 500 mg In 100 ml @ 400 mls/hr IV Q12HR@0900,2100 [facility] Rx#:[id number] Tube Feeding 300 400 Other 300 Output: Urine 1700 1200 Other: # Bowel Movements 1 3 Stool Characteristics Soft Soft Formed Formed Active Medications: Current Medications Acetaminophen (Tylenol 650mg Supp) 650 mg RC Q4H PRN PRN Reason: Fever > 101 Stop: 03/10/17 13:04 Last Admin: 01/12/17 03:37 Dose: 650 mg Albuterol/Ipratropium (Duoneb Neb) 3 ml HHN Q4HRT [facility] Stop: 03/11/17 14:59 Last Admin: 01/22/17 06:59 Dose: 3 ml Albuterol/Ipratropium (Duoneb Neb) 3 ml HHN Q2HRT PRN PRN Reason: Wheezing Stop: 03/11/17 13:46 Artificial Tears (Artificial Tears Ophth Soln) 1 drop EACH EYE BID [facility] Stop: 03/08/17 08:59 Last Admin: 01/22/17 09:46 Dose: 1 drop Ascorbic Acid (Vitamin C) 500 mg PO DAILY [facility] Stop: 03/08/17 08:59 Last Admin: 01/22/17 08:35 Dose: 500 mg Aspirin (Aspirin Chewable) 81 mg PO DAILY [facility] Stop: 03/13/17 08:59 Last Admin: 01/22/17 08:35 Dose: 81 mg Atorvastatin Calcium (Lipitor) 20 mg PO DAILY [facility] PRN Reason: Protocol Stop: 03/12/17 16:29 Last Admin: 01/22/17 08:35 Dose: 20 mg Atropine Sulfate (Atropine Syringe) 1 mg IVP Q4HR PRN PRN Reason: HR BELOW 40 Stop: 03/09/17 08:32 Last Admin: 01/09/17 01:00 Dose: 1 mg Bisacodyl (Dulcolax 10 Mg Supp) 10 mg RC HS [facility] Stop: 03/14/17 20:59 Last Admin: 01/21/17 22:41 Dose: 10 mg Calcium/Vitamin D (Oscal W/Vitamin D) 1 tab PO DAILY [facility] Stop: 03/08/17 08:59 Last Admin: 01/22/17 08:35 Dose: 1 tab Cyanocobalamin (Vitamin B12) 500 mcg PO DAILY [facility] Stop: 03/08/17 08:59 Last Admin: 01/22/17 08:35 Dose: 500 mcg Diltiazem HCl (Cardizem) 20 mg IVP Q4HR PRN PRN Reason: FOR HR>130 Stop: 03/13/17 03:53 Last Admin: 01/12/17 20:50 Dose: 20 mg Docusate Sodium (Colace) 100 mg PO DAILY [facility] Stop: 03/08/17 08:59 Last Admin: 01/22/17 08:35 Dose: 100 mg Levetiracetam (Keppra Pb) 500 mg in 100 mls @ 400 mls/hr IV Q12HR@0900,2100 [facility] Stop: 03/13/17 10:29 Last Admin: 01/22/17 09:45 Dose: 400 mls/hr Potassium Chloride/Dextrose/Sod Cl (D5-0.9ns W/Kcl 20meq) 1,000 mls @ 50 mls/ hr IV .Q20H [facility] Stop: 03/20/17 08:44 Last Admin: 01/21/17 22:41 Dose: Not Given Gentamicin Sulfate 140 mg/ (Sodium Chloride) 103.5 mls @ 100 mls/hr IV Q12HR@ 0200,1400 [facility] Stop: 03/21/17 02:59 Last Infusion: 01/22/17 03:00 Dose: Infused Insulin Aspart (Novolog Insulin Sliding Scale) 2 - 12 units SUBQ ACHS [facility] PRN Reason: Protocol Stop: 03/16/17 20:59 Last Admin: 01/22/17 07:00 Dose: Not Given Lorazepam (Ativan) 1 mg IVP Q4HR PRN; Protocol PRN Reason: Seizure Stop: 03/15/17 09:07 Methylprednisolone Sodium Succinate (Solu-Medrol) 20 mg IVP Q12HR [facility] Stop: 03/19/17 15:43 Last Admin: 01/22/17 08:35 Dose: 20 mg Mineral Oil (Fleet Mineral Oil) 135 ml RC DAILY PRN PRN Reason: CONSTIPATION Stop: 03/13/17 12:59 Last Admin: 01/14/17 10:49 Dose: 135 ml Mineral Oil (Mineral Oil 30 Ml) 30 ml NG Q6HR [facility] Stop: 03/15/17 11:59 Last Admin: 01/22/17 06:17 Dose: 30 ml Miscellaneous (Vte Chemical Prophylaxis Screen/ Admission) 1 ea [facility] PRN PRN PRN Reason: PROTOCOL Stop: 03/08/17 11:10 Miscellaneous (Probiotic Screen) 1 ea PRN PRN PRN Reason: PROTOCOL Stop: 03/13/17 13:54 Miscellaneous (Gentamicin Iv Per Pharmacy) 1 ea PRN PRN PRN Reason: PROTOCOL Stop: 03/19/17 08:25 Polyethylene Glycol (Miralax) 17 gm PO BID [facility] Stop: 03/14/17 16:59 Last Admin: 01/22/17 08:36 Dose: 17 gm Potassium Chloride (Klor-Con) 20 meq PO DAILY [facility] Stop: 03/08/17 08:59 Last Admin: 01/22/17 08:35 Dose: 20 meq General: Alert, No acute distress HEENT: Atraumatic, PERRLA, EOMI Neck: Supple Cardiovascular: Regular rate, Normal S1, Normal S2 Lungs: Other (wheezing,) Abdomen: Bowel sounds, Distended, Other (non tender, no guarding, no rebound) Extremities: no Clubbing, no Cyanosis, no Edema Assessment/Plan - Problem List Patient Problems: All Active Problems Constipation (Acute) K59.00 Dementia (Acute) F03.90 Facial twitching (Acute) G51.4 Hypocalcemia (Acute) E83.51 Hypokalemia (Acute) E87.6 Hypomagnesemia (Acute) E83.42 Hypophosphatemia (Acute) E83.39 Ileus (Acute) K56.7 Leukocytosis (Acute) D72.829 Multiple sclerosis (Acute) G35 Seizure disorder (Acute) G40.909 Sinus bradycardia (Acute) R00.1 Nutritional Asmnt/Malnutr-PDOC - Dietary Evaluation Malnutrition Findings (Please click <Entered> for more info): Nutritional Asmnt/Malnutrition Start: 01/08/17 12: 55 Text: Status: Complete Freq: Document 01/08/17 12:56 GSUN (Rec: 01/08/17 13:16 GSUN [id number]) Nutritional Asmnt/Malnutrition Patient General Information Nutritional Screening Consult Diagnosis ALOC, acute MS exacerbation Pertinent Medical Hx/Surgical Hx Dementia, multiple sclerosis, constipation Subjective Information 76 year old male from SNF. RD consult for low Audi. Per RN notes, facial twitching on adm, currently NPO with swallow eval pending. Pt was awake during visit, followed RD with eyes, did not provide any information. Mild wasting to chest noted, loose skin to arms. Current Diet Order/ Nutrition Support NPO Pertinent Medications Vitamin C, Oscal W/Vitamin D, Vitamin B12, D5-0.45ns, Dulcolax, Colace Pertinent Labs 01/08: reviewed. Glucose 148H Nutritional Hx/Data Height 1.85 m Height (Calculated Centimeters) 185.4 Current Weight (lbs) 69.49 kg Weight (Calculated Kilograms) 69.5 Weight (Calculated Grams) 88229.4 [place] Body Weight 184 Weight Status Approriate GI Symptoms Usual diet at home [facility]: pureed, large portion lunch and dinner, 4oz house supplement Skin Integrity/Comment: Audi 12. Pressure area r foot and upper back, abrasion l knee and r leg Estimated Nutritional Goals BEE in Kcals: Using Current wt Calories/Kcals/Kg IBW 184lb/83.6kg with consideration skin integrity and BMI Kcals Calculated 0-2508kcal (25-30kcal/kg) Protein: Using Current wt Protein Calculated 84-109g (1-1.3g/kg) Fluid: ml 0-2508ml (1ml/kcal) Nutritional Problem 2. Problem Problem Increased prot needs related to Etiology skin integrity aeb Signs/Symptoms: events intern: pressure area to right foot and upper back, abrasion ro left knee and right lower leg 1. 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 Recommend regular diet, diet texture per swallow eval (pending). SNF order pureed. Expected Outcomes/Goals Expected Outcomes/Goals 1. PO intake to meet at least 75% of estimated nutritional needs.
--- NOTE | 2017-01-22 14:23 | GI Progress Note ---
Subjective - Review of Systems Subjective: MORE DISTENDED ABD Objective - Results Result Diagrams: 01/22/17 05:46 01/22/17 05:46 Recent Labs: Laboratory Last Values WBC 18.9 Th/cmm (4.8-10.8) H 01/22/17 05:46 RBC 4.16 Mil/cmm (3.80-5.80) 01/22/17 05:46 Hgb 13.6 gm/dL (12-16) 01/22/17 05:46 Hct 39.8 % (41.0-60) L 01/22/17 05:46 MCV 95.8 fl (80-99) 01/22/17 05:46 MCH 32.6 pg (27.0-31.0) H 01/22/17 05:46 MCHC Differential 34.0 pg (28.0-36.0) 01/22/17 05:46 RDW 13.5 % (11.5-20.0) 01/22/17 05:46 Plt Count 109 Th/cmm (150-400) L D 01/22/17 05:46 MPV 9.0 fl 01/22/17 05:46 Neutrophils % ULTRASOUND TECHNOLOGIST SONOGRAPHER 01/18/17 05:37 Band Neutrophils % 4 % (0-10) 01/22/17 05:46 Lymphocytes % ULTRASOUND TECHNOLOGIST SONOGRAPHER 01/18/17 05:37 Monocytes % ULTRASOUND TECHNOLOGIST SONOGRAPHER 01/18/17 05:37 Eosinophils % ULTRASOUND TECHNOLOGIST SONOGRAPHER 01/18/17 05:37 Basophils % ULTRASOUND TECHNOLOGIST SONOGRAPHER 01/18/17 05:37 Neutrophils (Manual) 87 % (40-80) H 01/22/17 05:46 Lymphocytes 6 % (20-50) L 01/22/17 05:46 Monocytes 3 % (2-10) 01/22/17 05:46 Eosinophils 1 % (0-5) 01/20/17 05:44 Basophils 0 % (0-3) 01/19/17 10:00 Platelet Estimate ADEQUATE (NORMAL) 01/19/17 10:00 Platelet Morphology NORMAL (NORMAL) 01/19/17 10:00 Anisocytosis 1+ 01/06/17 12:32 RBC Morph Micro Appear NORMAL (NORMAL) 01/19/17 10:00 PT 12.9 SECONDS (9.5-11.5) H 01/06/17 10:50 INR 1.23 (0.5-1.4) 01/06/17 10:50 PTT (Actin FS) 37.0 SECONDS (26.0-38.0) 01/06/17 10:50 Sodium 135 mEq/L (136-145) L 01/22/17 05:46 Potassium 4.0 mEq/L (3.5-5.1) 01/22/17 05:46 Chloride 104 mEq/L (98-107) 01/22/17 05:46 Carbon Dioxide 25.5 mEq/L (21.0-31.0) 01/22/17 05:46 Anion Gap 9.5 (7.0-16.0) 01/22/17 05:46 BUN 9 mg/dL (7-25) 01/22/17 05:46 Creatinine 0.6 mg/dL (0.7-1.3) L 01/22/17 05:46 Est GFR ( Amer) TNP 01/22/17 05:46 Est GFR (Non-Af Amer) TNP 01/22/17 05:46 BUN/Creatinine Ratio 15.0 01/22/17 05:46 Glucose 161 mg/dL (70-105) H 01/22/17 05:46 POC Glucose 130 MG/DL (70 - 105) H 01/22/17 11:50 Hemoglobin A1c % 5.7 % (4.0-6.0) 01/14/17 09:07 Whole Bld Lactic Acid 0.95 mmol/L (0.60-1.99) 01/06/17 10:53 Calcium 8.2 mg/dL (8.6-10.3) L 01/22/17 05:46 Phosphorus 2.2 mg/dL (2.5-5.0) L 01/16/17 05:00 Magnesium 2.3 mg/dL (1.9-2.7) 01/15/17 04:50 Total Bilirubin 0.7 mg/dL (0.3-1.0) 01/20/17 05:44 AST 24 U/L (13-39) 01/20/17 05:44 ALT 22 U/L (7-52) 01/20/17 05:44 Alkaline Phosphatase 53 U/L (34-104) 01/20/17 05:44 Creatine Kinase 52 U/L (30-223) 01/06/17 10:50 B-Natriuretic Peptide 189.0 pg/mL (5.0-100.0) H 01/18/17 05:37 Total Protein 5.1 gm/dL (6.0-8.3) L 01/20/17 05:44 Albumin 2.7 gm/dL (4.2-5.5) L 01/20/17 05:44 Globulin 2.4 gm/dL 01/20/17 05:44 Albumin/Globulin Ratio 1.1 (1.0-1.8) 01/20/17 05:44 Triglycerides 343 mg/dL (<150) H 01/11/17 09:15 Cholesterol 163 mg/dL (<200) 01/11/17 09:15 LDL Cholesterol Direct 82 mg/dL (75-193) 01/11/17 09:15 HDL Cholesterol 46 mg/dL (23-92) 01/11/17 09:15 TSH 0.39 uIU/ml (0.34-5.60) 01/06/17 11:59 PTH Intact 31 pg/mL (15-65) 01/06/17 12:09 Urine Source RAE PORT 01/15/17 14:00 Urine Color YELLOW 01/15/17 14:00 Urine Clarity SLIGHT CLOUDY (CLEAR) 01/15/17 14:00 Urine pH 6.0 (4.6 - 8.0) 01/15/17 14:00 Ur Specific [place] 1.020 (1.005-1.030) 01/15/17 14:00 Urine Protein NEGATIVE mg/dL (NEGATIVE) 01/15/17 14:00 Urine Glucose (UA) >=1000 mg/dL (NEGATIVE) H 01/15/17 14:00 Urine Ketones NEGATIVE mg/dL (NEGATIVE) 01/15/17 14:00 Urine Blood MODERATE (NEGATIVE) H 01/15/17 14:00 Urine Nitrate NEGATIVE (NEGATIVE) 01/15/17 14:00 Urine Bilirubin NEGATIVE (NEGATIVE) 01/15/17 14:00 Urine Urobilinogen 0.2 E.U./dL (0.2 - 1.0) 01/15/17 14:00 Ur Leukocyte Esterase NEGATIVE (NEGATIVE) 01/15/17 14:00 Urine RBC 10-25 /hpf (0-5) H 01/15/17 14:00 Urine WBC 2-5 /hpf (0-5) H 01/15/17 14:00 Ur Epithelial Cells FEW /lpf (FEW) 01/15/17 14:00 Amorphous Sediment MODERATE URATES (NONE SEEN) 01/11/17 16:00 Urine Bacteria FEW /hpf (NONE SEEN) 01/15/17 14:00 Fine Granular Casts 0-2 /lpf (NONE SEEN) H 01/11/17 16:00 Urine Mucus FEW /lpf (FEW) 01/15/17 14:00 Urine Yeast FEW /hpf (NONE SEEN) H 01/11/17 16:00 Gentamicin Peak 5.3 ug/ml (4.0-8.0) L 01/20/17 16:38 Gentamicin Trough 1.3 ug/ml (0.2-2.0) 01/21/17 02:13 Vancomycin Trough 7.3 ug/mL (10-20) L 01/14/17 08:05 - Physical Exam Vitals and I&O: Vital Signs Temp 98.3 F 01/22/17 07:52 Pulse 89 01/22/17 11:23 Resp 14 01/22/17 11:23 BP 101/64 01/22/17 07:52 Pulse Ox 95 01/22/17 11:23 Intake & Output 01/21/17 01/22/17 01/22/17 18:59 06:59 18:59 Intake Total 1803.5 603.5 Output Total 1700 1200 Balance 103.5 -596.5 Weight (lbs) 66.95 kg 60.282 kg Intake: Intake, IV Amount 1203.5 203.5 D5-0.9NS w/KCL 20mEq 1, 1000 000 ml @ 50 mls/hr IV . Q20H [facility] Rx#:[id number] Gentamicin 140 mg In 103.5 103.5 Sodium Chloride 0.9% 100 ml @ 100 mls/hr IV Q12HR@ 0200,1400 [facility] Rx#: [id number] Levetiracetam 500mg/100mL 100 100 500 mg In 100 ml @ 400 mls/hr IV Q12HR@0900,2100 [facility] Rx#:[id number] Tube Feeding 300 400 Other 300 Output: Urine 1700 1200 Other: # Bowel Movements 1 3 Stool Characteristics Soft Soft Formed Formed Active Medications: Current Medications Acetaminophen (Tylenol 650mg Supp) 650 mg RC Q4H PRN PRN Reason: Fever > 101 Stop: 03/10/17 13:04 Last Admin: 01/12/17 03:37 Dose: 650 mg Albuterol/Ipratropium (Duoneb Neb) 3 ml HHN Q4HRT [facility] Stop: 03/11/17 14:59 Last Admin: 01/22/17 11:21 Dose: 3 ml Albuterol/Ipratropium (Duoneb Neb) 3 ml HHN Q2HRT PRN PRN Reason: Wheezing Stop: 03/11/17 13:46 Artificial Tears (Artificial Tears Ophth Soln) 1 drop EACH EYE BID [facility] Stop: 03/08/17 08:59 Last Admin: 01/22/17 09:46 Dose: 1 drop Ascorbic Acid (Vitamin C) 500 mg PO DAILY [facility] Stop: 03/08/17 08:59 Last Admin: 01/22/17 08:35 Dose: 500 mg Aspirin (Aspirin Chewable) 81 mg PO DAILY [facility] Stop: 03/13/17 08:59 Last Admin: 01/22/17 08:35 Dose: 81 mg Atorvastatin Calcium (Lipitor) 20 mg PO DAILY [facility] PRN Reason: Protocol Stop: 03/12/17 16:29 Last Admin: 01/22/17 08:35 Dose: 20 mg Atropine Sulfate (Atropine Syringe) 1 mg IVP Q4HR PRN PRN Reason: HR BELOW 40 Stop: 03/09/17 08:32 Last Admin: 01/09/17 01:00 Dose: 1 mg Bisacodyl (Dulcolax 10 Mg Supp) 10 mg RC HS [facility] Stop: 03/14/17 20:59 Last Admin: 01/21/17 22:41 Dose: 10 mg Calcium/Vitamin D (Oscal W/Vitamin D) 1 tab PO DAILY [facility] Stop: 03/08/17 08:59 Last Admin: 01/22/17 08:35 Dose: 1 tab Cyanocobalamin (Vitamin B12) 500 mcg PO DAILY [facility] Stop: 03/08/17 08:59 Last Admin: 01/22/17 08:35 Dose: 500 mcg Diltiazem HCl (Cardizem) 20 mg IVP Q4HR PRN PRN Reason: FOR HR>130 Stop: 03/13/17 03:53 Last Admin: 01/12/17 20:50 Dose: 20 mg Docusate Sodium (Colace) 100 mg PO DAILY [facility] Stop: 03/08/17 08:59 Last Admin: 01/22/17 08:35 Dose: 100 mg Levetiracetam (Keppra Pb) 500 mg in 100 mls @ 400 mls/hr IV Q12HR@0900,2100 [facility] Stop: 03/13/17 10:29 Last Admin: 01/22/17 09:45 Dose: 400 mls/hr Potassium Chloride/Dextrose/Sod Cl (D5-0.9ns W/Kcl 20meq) 1,000 mls @ 50 mls/ hr IV .Q20H [facility] Stop: 03/20/17 08:44 Last Admin: 01/21/17 22:41 Dose: Not Given Gentamicin Sulfate 240 mg/ (Sodium Chloride) 106 mls @ 100 mls/hr IV Q24H [facility] Stop: 03/23/17 13:59 Insulin Aspart (Novolog Insulin Sliding Scale) 2 - 12 units SUBQ ACHS [facility] PRN Reason: Protocol Stop: 03/16/17 20:59 Last Admin: 01/22/17 12:06 Dose: Not Given Lorazepam (Ativan) 1 mg IVP Q4HR PRN; Protocol PRN Reason: Seizure Stop: 03/15/17 09:07 Methylprednisolone Sodium Succinate (Solu-Medrol) 20 mg IVP Q12HR [facility] Stop: 03/19/17 15:43 Last Admin: 01/22/17 08:35 Dose: 20 mg Mineral Oil (Fleet Mineral Oil) 135 ml RC DAILY PRN PRN Reason: CONSTIPATION Stop: 03/13/17 12:59 Last Admin: 01/14/17 10:49 Dose: 135 ml Mineral Oil (Mineral Oil 30 Ml) 30 ml NG Q6HR [facility] Stop: 03/15/17 11:59 Last Admin: 01/22/17 12:34 Dose: 30 ml Miscellaneous (Vte Chemical Prophylaxis Screen/ Admission) 1 ea [facility] PRN PRN PRN Reason: PROTOCOL Stop: 03/08/17 11:10 Miscellaneous (Probiotic Screen) 1 ea PRN PRN PRN Reason: PROTOCOL Stop: 03/13/17 13:54 Miscellaneous (Gentamicin Iv Per Pharmacy) 1 ea PRN PRN PRN Reason: PROTOCOL Stop: 03/19/17 08:25 Polyethylene Glycol (Miralax) 17 gm PO BID [facility] Stop: 03/14/17 16:59 Last Admin: 01/22/17 08:36 Dose: 17 gm Potassium Chloride (Klor-Con) 20 meq PO DAILY [facility] Stop: 03/08/17 08:59 Last Admin: 01/22/17 08:35 Dose: 20 meq General: Alert, No acute distress HEENT: Atraumatic, PERRLA, EOMI Neck: Supple Cardiovascular: Regular rate, Normal S1, Normal S2 Lungs: Other (wheezing,) Abdomen: Bowel sounds, Distended, Other (non tender, no guarding, no rebound) Extremities: no Clubbing, no Cyanosis, no Edema Assessment/Plan - Problem List Patient Problems: All Active Problems Constipation (Acute) K59.00 Dementia (Acute) F03.90 Facial twitching (Acute) G51.4 Hypocalcemia (Acute) E83.51 Hypokalemia (Acute) E87.6 Hypomagnesemia (Acute) E83.42 Hypophosphatemia (Acute) E83.39 Ileus (Acute) K56.7 Leukocytosis (Acute) D72.829 Multiple sclerosis (Acute) G35 Seizure disorder (Acute) G40.909 Sinus bradycardia (Acute) R00.1 - Assessment Assessment: 76 YO MALE WITH CONSTIPATION SOME RELIEF USING LAXATIVES BARIUM SEEMS TO SUGGEST A DEGREE OF OBSTRUCTION PT MAY HAVE TOXIC MEGACOLON; SURGERY RECOMMENDATION NOTED MRCP SHOWED NO DILATATION OF THE CBD BUT THERE WAS A GALLSTONE LFTS ARE NORMAL ERCP DEFERRED FOR LACK OF SYMPTOMS, NO BIOCHEMICAL EVIDENCE OF CHOLESTASIS, AND PT'S COMORBIDITIES FAMILY STATES PT DID NOT WANT PEG 1.SURGICAL INPUT AND EXP LAP 2.CONSIDER CAROLEE IF GALLSTONES BECOME SYMPTOMATIC 3.COLO WAS CONSIDERED BUT SEEING HOW THE BARIUM ENEMA COULD NOT GET PASS A POINT OF OBSTRUCTION THEREFORE COLONOSCOPY UNLIKELY TO TRAVERSE THIS AREA
[2017-01-22] MEDS: Gentamicin 240 MG in Sodium Chloride 0.9% 100 ML IV SCH (14:29)
[2017-01-22] MEDS: D5-0.9NS w/KCL 20mEq 1,000 ML IV SCH (15:48)
--- NOTE | 2017-01-22 23:50 | Infectious Disease Prog Note ---
Infectious Disease Subjective - Review of Systems Service Date: 01/22/17 Subjective: There is no new change, there is no fever. Doing better. Infectious Disease Objective - Results Result Diagrams: 01/22/17 05:46 01/22/17 05:46 Recent Labs: Laboratory Last Values WBC 18.9 Th/cmm (4.8-10.8) H 01/22/17 05:46 RBC 4.16 Mil/cmm (3.80-5.80) 01/22/17 05:46 Hgb 13.6 gm/dL (12-16) 01/22/17 05:46 Hct 39.8 % (41.0-60) L 01/22/17 05:46 MCV 95.8 fl (80-99) 01/22/17 05:46 MCH 32.6 pg (27.0-31.0) H 01/22/17 05:46 MCHC Differential 34.0 pg (28.0-36.0) 01/22/17 05:46 RDW 13.5 % (11.5-20.0) 01/22/17 05:46 Plt Count 109 Th/cmm (150-400) L D 01/22/17 05:46 MPV 9.0 fl 01/22/17 05:46 Neutrophils % [employer] 01/18/17 05:37 Band Neutrophils % 4 % (0-10) 01/22/17 05:46 Lymphocytes % [employer] 01/18/17 05:37 Monocytes % [employer] 01/18/17 05:37 Eosinophils % [employer] 01/18/17 05:37 Basophils % [employer] 01/18/17 05:37 Neutrophils (Manual) 87 % (40-80) H 01/22/17 05:46 Lymphocytes 6 % (20-50) L 01/22/17 05:46 Monocytes 3 % (2-10) 01/22/17 05:46 Eosinophils 1 % (0-5) 01/20/17 05:44 Basophils 0 % (0-3) 01/19/17 10:00 Platelet Estimate ADEQUATE (NORMAL) 01/19/17 10:00 Platelet Morphology NORMAL (NORMAL) 01/19/17 10:00 Anisocytosis 1+ 01/06/17 12:32 RBC Morph Micro Appear NORMAL (NORMAL) 01/19/17 10:00 PT 12.9 SECONDS (9.5-11.5) H 01/06/17 10:50 INR 1.23 (0.5-1.4) 01/06/17 10:50 PTT (Actin FS) 37.0 SECONDS (26.0-38.0) 01/06/17 10:50 Sodium 135 mEq/L (136-145) L 01/22/17 05:46 Potassium 4.0 mEq/L (3.5-5.1) 01/22/17 05:46 Chloride 104 mEq/L (98-107) 01/22/17 05:46 Carbon Dioxide 25.5 mEq/L (21.0-31.0) 01/22/17 05:46 Anion Gap 9.5 (7.0-16.0) 01/22/17 05:46 BUN 9 mg/dL (7-25) 01/22/17 05:46 Creatinine 0.6 mg/dL (0.7-1.3) L 01/22/17 05:46 Est GFR ( Amer) TNP 01/22/17 05:46 Est GFR (Non-Af Amer) TNP 01/22/17 05:46 BUN/Creatinine Ratio 15.0 01/22/17 05:46 Glucose 161 mg/dL (70-105) H 01/22/17 05:46 POC Glucose 95 MG/DL (70 - 105) 01/22/17 22:14 Hemoglobin A1c % 5.7 % (4.0-6.0) 01/14/17 09:07 Whole Bld Lactic Acid 0.95 mmol/L (0.60-1.99) 01/06/17 10:53 Calcium 8.2 mg/dL (8.6-10.3) L 01/22/17 05:46 Phosphorus 2.2 mg/dL (2.5-5.0) L 01/16/17 05:00 Magnesium 2.3 mg/dL (1.9-2.7) 01/15/17 04:50 Total Bilirubin 0.7 mg/dL (0.3-1.0) 01/20/17 05:44 AST 24 U/L (13-39) 01/20/17 05:44 ALT 22 U/L (7-52) 01/20/17 05:44 Alkaline Phosphatase 53 U/L (34-104) 01/20/17 05:44 Creatine Kinase 52 U/L (30-223) 01/06/17 10:50 B-Natriuretic Peptide 189.0 pg/mL (5.0-100.0) H 01/18/17 05:37 Total Protein 5.1 gm/dL (6.0-8.3) L 01/20/17 05:44 Albumin 2.7 gm/dL (4.2-5.5) L 01/20/17 05:44 Globulin 2.4 gm/dL 01/20/17 05:44 Albumin/Globulin Ratio 1.1 (1.0-1.8) 01/20/17 05:44 Triglycerides 343 mg/dL (<150) H 01/11/17 09:15 Cholesterol 163 mg/dL (<200) 01/11/17 09:15 LDL Cholesterol Direct 82 mg/dL (75-193) 01/11/17 09:15 HDL Cholesterol 46 mg/dL (23-92) 01/11/17 09:15 TSH 0.39 uIU/ml (0.34-5.60) 01/06/17 11:59 PTH Intact 31 pg/mL (15-65) 01/06/17 12:09 Urine Source RAE PORT 01/15/17 14:00 Urine Color YELLOW 01/15/17 14:00 Urine Clarity SLIGHT CLOUDY (CLEAR) 01/15/17 14:00 Urine pH 6.0 (4.6 - 8.0) 01/15/17 14:00 Ur Specific [place] 1.020 (1.005-1.030) 01/15/17 14:00 Urine Protein NEGATIVE mg/dL (NEGATIVE) 01/15/17 14:00 Urine Glucose (UA) >=1000 mg/dL (NEGATIVE) H 01/15/17 14:00 Urine Ketones NEGATIVE mg/dL (NEGATIVE) 01/15/17 14:00 Urine Blood MODERATE (NEGATIVE) H 01/15/17 14:00 Urine Nitrate NEGATIVE (NEGATIVE) 01/15/17 14:00 Urine Bilirubin NEGATIVE (NEGATIVE) 01/15/17 14:00 Urine Urobilinogen 0.2 E.U./dL (0.2 - 1.0) 01/15/17 14:00 Ur Leukocyte Esterase NEGATIVE (NEGATIVE) 01/15/17 14:00 Urine RBC 10-25 /hpf (0-5) H 01/15/17 14:00 Urine WBC 2-5 /hpf (0-5) H 01/15/17 14:00 Ur Epithelial Cells FEW /lpf (FEW) 01/15/17 14:00 Amorphous Sediment MODERATE URATES (NONE SEEN) 01/11/17 16:00 Urine Bacteria FEW /hpf (NONE SEEN) 01/15/17 14:00 Fine Granular Casts 0-2 /lpf (NONE SEEN) H 01/11/17 16:00 Urine Mucus FEW /lpf (FEW) 01/15/17 14:00 Urine Yeast FEW /hpf (NONE SEEN) H 01/11/17 16:00 Gentamicin Peak 5.3 ug/ml (4.0-8.0) L 01/20/17 16:38 Gentamicin Trough 1.3 ug/ml (0.2-2.0) 01/21/17 02:13 Vancomycin Trough 7.3 ug/mL (10-20) L 01/14/17 08:05 - Physical Exam Vitals and I&O: Vital Signs Temp 98.1 F 01/22/17 20:34 Pulse 94 01/22/17 22:47 Resp 20 01/22/17 22:47 BP 112/66 01/22/17 20:34 Pulse Ox 96 01/22/17 22:47 Intake & Output 01/22/17 01/22/17 01/23/17 06:59 18:59 06:59 Intake Total 603.5 1100 Output Total 1200 Balance -596.5 1100 Weight (lbs) 60.282 kg Intake: Intake, IV Amount 203.5 1100 D5-0.9NS w/KCL 20mEq 1, 1000 000 ml @ 50 mls/hr IV . Q20H [facility] Rx#:[id number] Gentamicin 140 mg In 103.5 Sodium Chloride 0.9% 100 ml @ 100 mls/hr IV Q12HR@ 0200,1400 [facility] Rx#: [id number] Levetiracetam 500mg/100mL 100 100 500 mg In 100 ml @ 400 mls/hr IV Q12HR@0900,2100 [facility] Rx#:[id number] Tube Feeding 400 Output: Urine 1200 Other: # Bowel Movements 3 Stool Characteristics Soft Soft Formed Formed Active Medications: Current Medications Acetaminophen (Tylenol 650mg Supp) 650 mg RC Q4H PRN PRN Reason: Fever > 101 Stop: 03/10/17 13:04 Last Admin: 01/12/17 03:37 Dose: 650 mg Albuterol/Ipratropium (Duoneb Neb) 3 ml HHN Q4HRT [facility] Stop: 03/11/17 14:59 Last Admin: 01/22/17 22:32 Dose: 3 ml Albuterol/Ipratropium (Duoneb Neb) 3 ml HHN Q2HRT PRN PRN Reason: Wheezing Stop: 03/11/17 13:46 Artificial Tears (Artificial Tears Ophth Soln) 1 drop EACH EYE BID [facility] Stop: 03/08/17 08:59 Last Admin: 01/22/17 16:07 Dose: 1 drop Ascorbic Acid (Vitamin C) 500 mg PO DAILY [facility] Stop: 03/08/17 08:59 Last Admin: 01/22/17 08:35 Dose: 500 mg Aspirin (Aspirin Chewable) 81 mg PO DAILY [facility] Stop: 03/13/17 08:59 Last Admin: 01/22/17 08:35 Dose: 81 mg Atorvastatin Calcium (Lipitor) 20 mg PO DAILY [facility] PRN Reason: Protocol Stop: 03/12/17 16:29 Last Admin: 01/22/17 08:35 Dose: 20 mg Atropine Sulfate (Atropine Syringe) 1 mg IVP Q4HR PRN PRN Reason: HR BELOW 40 Stop: 03/09/17 08:32 Last Admin: 01/09/17 01:00 Dose: 1 mg Bisacodyl (Dulcolax 10 Mg Supp) 10 mg RC HS [facility] Stop: 03/14/17 20:59 Last Admin: 01/21/17 22:41 Dose: 10 mg Calcium/Vitamin D (Oscal W/Vitamin D) 1 tab PO DAILY [facility] Stop: 03/08/17 08:59 Last Admin: 01/22/17 08:35 Dose: 1 tab Cyanocobalamin (Vitamin B12) 500 mcg PO DAILY [facility] Stop: 03/08/17 08:59 Last Admin: 01/22/17 08:35 Dose: 500 mcg Diltiazem HCl (Cardizem) 20 mg IVP Q4HR PRN PRN Reason: FOR HR>130 Stop: 03/13/17 03:53 Last Admin: 01/12/17 20:50 Dose: 20 mg Docusate Sodium (Colace) 100 mg PO DAILY [facility] Stop: 03/08/17 08:59 Last Admin: 01/22/17 08:35 Dose: 100 mg Levetiracetam (Keppra Pb) 500 mg in 100 mls @ 400 mls/hr IV Q12HR@0900,2100 [facility] Stop: 03/13/17 10:29 Last Admin: 01/22/17 22:03 Dose: 400 mls/hr Potassium Chloride/Dextrose/Sod Cl (D5-0.9ns W/Kcl 20meq) 1,000 mls @ 50 mls/ hr IV .Q20H [facility] Stop: 03/20/17 08:44 Last Admin: 01/22/17 15:48 Dose: 50 mls/hr Gentamicin Sulfate 240 mg/ (Sodium Chloride) 106 mls @ 100 mls/hr IV Q24H [facility] Stop: 03/23/17 13:59 Last Admin: 01/22/17 14:29 Dose: 100 mls/hr Insulin Aspart (Novolog Insulin Sliding Scale) 2 - 12 units SUBQ ACHS [facility] PRN Reason: Protocol Stop: 03/16/17 20:59 Last Admin: 01/22/17 22:22 Dose: Not Given Lorazepam (Ativan) 1 mg IVP Q4HR PRN; Protocol PRN Reason: Seizure Stop: 03/15/17 09:07 Methylprednisolone Sodium Succinate (Solu-Medrol) 20 mg IVP Q12HR [facility] Stop: 03/19/17 15:43 Last Admin: 01/22/17 22:04 Dose: 20 mg Mineral Oil (Fleet Mineral Oil) 135 ml RC DAILY PRN PRN Reason: CONSTIPATION Stop: 03/13/17 12:59 Last Admin: 01/14/17 10:49 Dose: 135 ml Mineral Oil (Mineral Oil 30 Ml) 30 ml NG Q6HR [facility] Stop: 03/15/17 11:59 Last Admin: 01/22/17 20:03 Dose: Not Given Miscellaneous (Vte Chemical Prophylaxis Screen/ Admission) 1 ea PRN PRN PRN Reason: PROTOCOL Stop: 03/08/17 11:10 Miscellaneous (Probiotic Screen) 1 ea PRN PRN PRN Reason: PROTOCOL Stop: 03/13/17 13:54 Miscellaneous (Gentamicin Iv Per Pharmacy) 1 ea PRN PRN PRN Reason: PROTOCOL Stop: 03/19/17 08:25 Polyethylene Glycol (Miralax) 17 gm PO BID [facility] Stop: 03/14/17 16:59 Last Admin: 01/22/17 16:07 Dose: 17 gm Potassium Chloride (Klor-Con) 20 meq PO DAILY [facility] Stop: 03/08/17 08:59 Last Admin: 01/22/17 08:35 Dose: 20 meq General: no acute distress, well developed, well nourished HEENT: atraumatic, normocephalic, PERRLA Neck: supple, no thyromegaly Cardiovascular: S1S2, regular Lungs: clear to auscultation bilaterally, clear to percussion Abdomen: soft, bowel sounds, no tender, no distended Extremities: no cyanosis, no clubbing, no edema Neurological: awake, alert Skin: intact Infectious Disease Assmt/Plan - Problem List Patient Problems: All Active Problems Constipation (Acute) K59.00 Dementia (Acute) F03.90 Facial twitching (Acute) G51.4 Hypocalcemia (Acute) E83.51 Hypokalemia (Acute) E87.6 Hypomagnesemia (Acute) E83.42 Hypophosphatemia (Acute) E83.39 Ileus (Acute) K56.7 Leukocytosis (Acute) D72.829 Multiple sclerosis (Acute) G35 Seizure disorder (Acute) G40.909 Sinus bradycardia (Acute) R00.1 - Assessment Assessment: 1. Leukocytosis and low-grade fever, sepsis.worse. ? Steroids. 2. Urinary tract infection. 3. Possible common bile duct obstruction distal end, cholelithiasis. 4. Fecal impaction. 5. Supraventricular tachycardia. 6. Multiple sclerosis. 7. Dementia. 8. constipation/ileus - Plan Plan: Antibiotics gentamicin. KUB. Gi for consultations on the case. . Nutritional Asmnt/Malnutr-PDOC - Dietary Evaluation Malnutrition Findings (Please click <Entered> for more info): Nutritional Asmnt/Malnutrition Start: 01/08/17 12: 55 Text: Status: Complete Freq: Document 01/08/17 12:56 GSUN (Rec: 01/08/17 13:16 [email or web address] [id number]) Nutritional Asmnt/Malnutrition Patient General Information Nutritional Screening Consult Diagnosis ALOC, acute MS exacerbation Pertinent Medical Hx/Surgical Hx Dementia, multiple sclerosis, constipation Subjective Information 76 year old male from SNF. RD consult for laura Huntley. Per RN notes, facial twitching on adm, currently NPO with swallow eval pending. Pt was awake during visit, followed RD with eyes, did not provide any information. Mild wasting to chest noted, loose skin to arms. Current Diet Order/ Nutrition Support NPO Pertinent Medications Vitamin C, Oscal W/Vitamin D, Vitamin B12, D5-0.45ns, Dulcolax, Colace Pertinent Labs 01/08: reviewed. Glucose 148H Nutritional Hx/Data Height 1.85 m Height (Calculated Centimeters) 185.4 Current Weight (lbs) 69.49 kg Weight (Calculated Kilograms) 69.5 Weight (Calculated Grams) 31699.4 [place] Body Weight 184 Weight Status Approriate GI Symptoms Usual diet at home [place] [facility]: pureed, large portion lunch and dinner, 4oz house supplement Skin Integrity/Comment: Audi 12. Pressure area r foot and upper back, abrasion l knee and r leg Estimated Nutritional Goals BEE in Kcals: Using Current wt Calories/Kcals/Kg IBW 184lb/83.6kg with consideration skin integrity and BMI Kcals Calculated 2090-2508kcal (25-30kcal/kg) Protein: Using Current wt Protein Calculated 84-109g (1-1.3g/kg) Fluid: ml 2090-2508ml (1ml/kcal) Nutritional Problem 2. Problem Problem Increased prot needs related to Etiology skin integrity aeb Signs/Symptoms: manager latin: pressure area to right foot and upper back, abrasion ro left knee and right lower leg 1. 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 Recommend regular diet, diet texture per swallow eval (pending). SNF order pureed. Expected Outcomes/Goals Expected Outcomes/Goals 1. PO intake to meet at least 75% of estimated nutritional needs.
[2017-01-23] MEDS: Albuterol/Ipratropium Neb 3 ML AERS HHN SCH ×6 (03:13→22:13)
[2017-01-23 05:51] LABS: HEMATOCRIT 36.5 % (41.0-60); HEMOGLOBIN 12.5 gm/dL (12-16); MEAN CELL VOLUME 96.3 fl (80-99); MEAN CORPUSCULAR HEMOGLOBIN 33.1 pg (27.0-31.0); MEAN CORPUSCULAR HGB CONC 34.3 pg (28.0-36.0); MEAN PLATELET VOLUME 7.9 fl; NEUTROPHILE ABSOLUTE 15.6 Th/cmm (1.8-8.0); RED BLOOD COUNT 3.79 Mil/cmm (3.80-5.80); RED CELL DISTRIBUTION WIDTH 13.5 % (11.5-20.0)
[2017-01-23 06:03] LABS: WHITE BLOOD COUNT 16.7 Th/cmm (4.8-10.8)
[2017-01-23 06:06] LABS: INR 1.13 (0.5-1.4); PROTHROMBIN TIME (TEST) 11.9 SECONDS (9.5-11.5)
[2017-01-23 06:08] LABS: TOTAL CELLS COUNTED 100
[2017-01-23 06:11] LABS: BAND NEUTROPHILE 4 % (0-10); NEUTROPHILS 89 % (40-80)
[2017-01-23 06:12] LABS: PLATELET COUNT 195 Th/cmm (150-400)
[2017-01-23 06:14] LABS: ANION GAP 7.5 (7.0-16.0); BUN - UREA NITROGEN 9 mg/dL (7-25); CARBON DIOXIDE 25.2 mEq/L (21.0-31.0); CHLORIDE 104 mEq/L (98-107); CREATININE - SERUM 0.5 mg/dL (0.7-1.3); GLUCOSE 147 mg/dL (70-105); POTASSIUM SERUM 3.7 mEq/L (3.5-5.1); SODIUM SERUM 133 mEq/L (136-145)
[2017-01-23] MEDS: INSULIN ASPART SLIDING SCALE 100 UNITS/ML UNIT SUBQ SCH ×2 (07:29→17:26)
--- NOTE | 2017-01-23 08:15 | GI Progress Note ---
Subjective - Review of Systems Subjective: NO EVENTS Objective - Results Result Diagrams: 01/23/17 05:40 01/23/17 05:40 Recent Labs: Laboratory Last Values WBC 16.7 Th/cmm (4.8-10.8) H 01/23/17 05:40 RBC 3.79 Mil/cmm (3.80-5.80) L 01/23/17 05:40 Hgb 12.5 gm/dL (12-16) 01/23/17 05:40 Hct 36.5 % (41.0-60) L 01/23/17 05:40 MCV 96.3 fl (80-99) 01/23/17 05:40 MCH 33.1 pg (27.0-31.0) H 01/23/17 05:40 MCHC Differential 34.3 pg (28.0-36.0) 01/23/17 05:40 RDW 13.5 % (11.5-20.0) 01/23/17 05:40 Plt Count 195 Th/cmm (150-400) D 01/23/17 05:40 MPV 7.9 fl 01/23/17 05:40 Neutrophils % [employer] 01/18/17 05:37 Band Neutrophils % 4 % (0-10) 01/23/17 05:40 Lymphocytes % [employer] 01/18/17 05:37 Monocytes % [employer] 01/18/17 05:37 Eosinophils % [employer] 01/18/17 05:37 Basophils % [employer] 01/18/17 05:37 Neutrophils (Manual) 89 % (40-80) H 01/23/17 05:40 Lymphocytes 5 % (20-50) L 01/23/17 05:40 Monocytes 2 % (2-10) 01/23/17 05:40 Eosinophils 1 % (0-5) 01/20/17 05:44 Basophils 0 % (0-3) 01/19/17 10:00 Platelet Estimate ADEQUATE (NORMAL) 01/19/17 10:00 Platelet Morphology NORMAL (NORMAL) 01/19/17 10:00 Anisocytosis 1+ 01/06/17 12:32 RBC Morph Micro Appear NORMAL (NORMAL) 01/19/17 10:00 PT 11.9 SECONDS (9.5-11.5) H 01/23/17 05:40 INR 1.13 (0.5-1.4) 01/23/17 05:40 PTT (Actin FS) 24.1 SECONDS (26.0-38.0) L 01/23/17 05:40 Sodium 133 mEq/L (136-145) L 01/23/17 05:40 Potassium 3.7 mEq/L (3.5-5.1) 01/23/17 05:40 Chloride 104 mEq/L (98-107) 01/23/17 05:40 Carbon Dioxide 25.2 mEq/L (21.0-31.0) 01/23/17 05:40 Anion Gap 7.5 (7.0-16.0) 01/23/17 05:40 BUN 9 mg/dL (7-25) 01/23/17 05:40 Creatinine 0.5 mg/dL (0.7-1.3) L 01/23/17 05:40 Est GFR ( Amer) TNP 01/23/17 05:40 Est GFR (Non-Af Amer) TNP 01/23/17 05:40 BUN/Creatinine Ratio 18.0 01/23/17 05:40 Glucose 147 mg/dL (70-105) H 01/23/17 05:40 POC Glucose 138 MG/DL (70 - 105) H 01/23/17 05:36 Hemoglobin A1c % 5.7 % (4.0-6.0) 01/14/17 09:07 Whole Bld Lactic Acid 0.95 mmol/L (0.60-1.99) 01/06/17 10:53 Calcium 8.0 mg/dL (8.6-10.3) L 01/23/17 05:40 Phosphorus 2.2 mg/dL (2.5-5.0) L 01/16/17 05:00 Magnesium 2.3 mg/dL (1.9-2.7) 01/15/17 04:50 Total Bilirubin 0.7 mg/dL (0.3-1.0) 01/20/17 05:44 AST 24 U/L (13-39) 01/20/17 05:44 ALT 22 U/L (7-52) 01/20/17 05:44 Alkaline Phosphatase 53 U/L (34-104) 01/20/17 05:44 Creatine Kinase 52 U/L (30-223) 01/06/17 10:50 B-Natriuretic Peptide 189.0 pg/mL (5.0-100.0) H 01/18/17 05:37 Total Protein 5.1 gm/dL (6.0-8.3) L 01/20/17 05:44 Albumin 2.7 gm/dL (4.2-5.5) L 01/20/17 05:44 Globulin 2.4 gm/dL 01/20/17 05:44 Albumin/Globulin Ratio 1.1 (1.0-1.8) 01/20/17 05:44 Triglycerides 343 mg/dL (<150) H 01/11/17 09:15 Cholesterol 163 mg/dL (<200) 01/11/17 09:15 LDL Cholesterol Direct 82 mg/dL (75-193) 01/11/17 09:15 HDL Cholesterol 46 mg/dL (23-92) 01/11/17 09:15 TSH 0.39 uIU/ml (0.34-5.60) 01/06/17 11:59 PTH Intact 31 pg/mL (15-65) 01/06/17 12:09 Urine Source RAE PORT 01/15/17 14:00 Urine Color YELLOW 01/15/17 14:00 Urine Clarity SLIGHT CLOUDY (CLEAR) 01/15/17 14:00 Urine pH 6.0 (4.6 - 8.0) 01/15/17 14:00 Ur Specific [place] 1.020 (1.005-1.030) 01/15/17 14:00 Urine Protein NEGATIVE mg/dL (NEGATIVE) 01/15/17 14:00 Urine Glucose (UA) >=1000 mg/dL (NEGATIVE) H 01/15/17 14:00 Urine Ketones NEGATIVE mg/dL (NEGATIVE) 01/15/17 14:00 Urine Blood MODERATE (NEGATIVE) H 01/15/17 14:00 Urine Nitrate NEGATIVE (NEGATIVE) 01/15/17 14:00 Urine Bilirubin NEGATIVE (NEGATIVE) 01/15/17 14:00 Urine Urobilinogen 0.2 E.U./dL (0.2 - 1.0) 01/15/17 14:00 Ur Leukocyte Esterase NEGATIVE (NEGATIVE) 01/15/17 14:00 Urine RBC 10-25 /hpf (0-5) H 01/15/17 14:00 Urine WBC 2-5 /hpf (0-5) H 01/15/17 14:00 Ur Epithelial Cells FEW /lpf (FEW) 01/15/17 14:00 Amorphous Sediment MODERATE URATES (NONE SEEN) 01/11/17 16:00 Urine Bacteria FEW /hpf (NONE SEEN) 01/15/17 14:00 Fine Granular Casts 0-2 /lpf (NONE SEEN) H 01/11/17 16:00 Urine Mucus FEW /lpf (FEW) 01/15/17 14:00 Urine Yeast FEW /hpf (NONE SEEN) H 01/11/17 16:00 Gentamicin Peak 5.3 ug/ml (4.0-8.0) L 01/20/17 16:38 Gentamicin Trough 1.3 ug/ml (0.2-2.0) 01/21/17 02:13 Vancomycin Trough 7.3 ug/mL (10-20) L 01/14/17 08:05 - Physical Exam Vitals and I&O: Vital Signs Temp 98.8 F 01/23/17 04:00 Pulse 92 01/23/17 07:38 Resp 20 01/23/17 07:40 BP 107/66 01/23/17 04:00 Pulse Ox 95 01/23/17 07:38 Intake & Output 01/22/17 01/23/17 01/23/17 18:59 06:59 18:59 Intake Total 1100 100 Output Total 1400 Balance 1100 100 -1400 Weight (lbs) 60.328 kg 59.874 kg Intake: Intake, IV Amount 1100 100 D5-0.9NS w/KCL 20mEq 1, 1000 000 ml @ 50 mls/hr IV . Q20H [facility] Rx#:[id number] Levetiracetam 500mg/100mL 100 100 500 mg In 100 ml @ 400 mls/hr IV Q12HR@0900,2100 [facility] Rx#:[id number] Output: Urine 1400 Other: # Bowel Movements 2 Stool Characteristics Soft Formed Active Medications: Current Medications Acetaminophen (Tylenol 650mg Supp) 650 mg RC Q4H PRN PRN Reason: Fever > 101 Stop: 03/10/17 13:04 Last Admin: 01/12/17 03:37 Dose: 650 mg Albuterol/Ipratropium (Duoneb Neb) 3 ml HHN Q4HRT [facility] Stop: 03/11/17 14:59 Last Admin: 01/23/17 07:38 Dose: 3 ml Albuterol/Ipratropium (Duoneb Neb) 3 ml HHN Q2HRT PRN PRN Reason: Wheezing Stop: 03/11/17 13:46 Artificial Tears (Artificial Tears Ophth Soln) 1 drop EACH EYE BID [facility] Stop: 03/08/17 08:59 Last Admin: 01/22/17 16:07 Dose: 1 drop Ascorbic Acid (Vitamin C) 500 mg PO DAILY [facility] Stop: 03/08/17 08:59 Last Admin: 01/22/17 08:35 Dose: 500 mg Aspirin (Aspirin Chewable) 81 mg PO DAILY [facility] Stop: 03/13/17 08:59 Last Admin: 01/22/17 08:35 Dose: 81 mg Atorvastatin Calcium (Lipitor) 20 mg PO DAILY [facility] PRN Reason: Protocol Stop: 03/12/17 16:29 Last Admin: 01/22/17 08:35 Dose: 20 mg Atropine Sulfate (Atropine Syringe) 1 mg IVP Q4HR PRN PRN Reason: HR BELOW 40 Stop: 03/09/17 08:32 Last Admin: 01/09/17 01:00 Dose: 1 mg Bisacodyl (Dulcolax 10 Mg Supp) 10 mg RC HS [facility] Stop: 03/14/17 20:59 Last Admin: 01/22/17 21:00 Dose: 10 mg Calcium/Vitamin D (Oscal W/Vitamin D) 1 tab PO DAILY [facility] Stop: 03/08/17 08:59 Last Admin: 01/22/17 08:35 Dose: 1 tab Cyanocobalamin (Vitamin B12) 500 mcg PO DAILY [facility] Stop: 03/08/17 08:59 Last Admin: 01/22/17 08:35 Dose: 500 mcg Diltiazem HCl (Cardizem) 20 mg IVP Q4HR PRN PRN Reason: FOR HR>130 Stop: 03/13/17 03:53 Last Admin: 01/12/17 20:50 Dose: 20 mg Docusate Sodium (Colace) 100 mg PO DAILY [facility] Stop: 03/08/17 08:59 Last Admin: 01/22/17 08:35 Dose: 100 mg Levetiracetam (Keppra Pb) 500 mg in 100 mls @ 400 mls/hr IV Q12HR@0900,2100 [facility] Stop: 03/13/17 10:29 Last Infusion: 01/22/17 22:18 Dose: Infused Potassium Chloride/Dextrose/Sod Cl (D5-0.9ns W/Kcl 20meq) 1,000 mls @ 50 mls/ hr IV .Q20H [facility] Stop: 03/20/17 08:44 Last Admin: 01/22/17 15:48 Dose: 50 mls/hr Gentamicin Sulfate 240 mg/ (Sodium Chloride) 106 mls @ 100 mls/hr IV Q24H [facility] Stop: 03/23/17 13:59 Last Admin: 01/22/17 14:29 Dose: 100 mls/hr Insulin Aspart (Novolog Insulin Sliding Scale) 2 - 12 units SUBQ ACHS [facility] PRN Reason: Protocol Stop: 03/16/17 20:59 Last Admin: 01/23/17 07:29 Dose: Not Given Lorazepam (Ativan) 1 mg IVP Q4HR PRN; Protocol PRN Reason: Seizure Stop: 03/15/17 09:07 Methylprednisolone Sodium Succinate (Solu-Medrol) 20 mg IVP Q12HR [facility] Stop: 03/19/17 15:43 Last Admin: 01/22/17 22:04 Dose: 20 mg Mineral Oil (Fleet Mineral Oil) 135 ml RC DAILY PRN PRN Reason: CONSTIPATION Stop: 03/13/17 12:59 Last Admin: 01/14/17 10:49 Dose: 135 ml Mineral Oil (Mineral Oil 30 Ml) 30 ml NG Q6HR [facility] Stop: 03/15/17 11:59 Last Admin: 01/23/17 07:29 Dose: Not Given Miscellaneous (Vte Chemical Prophylaxis Screen/ Admission) 1 ea PRN PRN PRN Reason: PROTOCOL Stop: 03/08/17 11:10 Miscellaneous (Probiotic Screen) 1 ea PRN PRN PRN Reason: PROTOCOL Stop: 03/13/17 13:54 Miscellaneous (Gentamicin Iv Per Pharmacy) 1 ea PRN PRN PRN Reason: PROTOCOL Stop: 03/19/17 08:25 Polyethylene Glycol (Miralax) 17 gm PO BID [facility] Stop: 03/14/17 16:59 Last Admin: 01/22/17 16:07 Dose: 17 gm Potassium Chloride (Klor-Con) 20 meq PO DAILY [facility] Stop: 03/08/17 08:59 Last Admin: 01/22/17 08:35 Dose: 20 meq General: Alert, No acute distress HEENT: Atraumatic, PERRLA, EOMI Neck: Supple Cardiovascular: Regular rate, Normal S1, Normal S2 Lungs: Other (wheezing,) Abdomen: Bowel sounds, Distended, Other (non tender, no guarding, no rebound) Extremities: no Clubbing, no Cyanosis, no Edema Assessment/Plan - Problem List Patient Problems: All Active Problems Constipation (Acute) K59.00 Dementia (Acute) F03.90 Facial twitching (Acute) G51.4 Hypocalcemia (Acute) E83.51 Hypokalemia (Acute) E87.6 Hypomagnesemia (Acute) E83.42 Hypophosphatemia (Acute) E83.39 Ileus (Acute) K56.7 Leukocytosis (Acute) D72.829 Multiple sclerosis (Acute) G35 Seizure disorder (Acute) G40.909 Sinus bradycardia (Acute) R00.1 - Assessment Assessment: 76 YO MALE WITH CONSTIPATION SOME RELIEF USING LAXATIVES BARIUM SEEMS TO SUGGEST A DEGREE OF OBSTRUCTION PT MAY HAVE TOXIC MEGACOLON; SURGERY RECOMMENDATION NOTED MRCP SHOWED NO DILATATION OF THE CBD BUT THERE WAS A GALLSTONE LFTS ARE NORMAL ERCP DEFERRED FOR LACK OF SYMPTOMS, NO BIOCHEMICAL EVIDENCE OF CHOLESTASIS, AND PT'S COMORBIDITIES FAMILY STATES PT DID NOT WANT PEG 1.SURGICAL INPUT AND EXP LAP 2.CONSIDER CAROLEE IF GALLSTONES BECOME SYMPTOMATIC 3.COLO WAS CONSIDERED BUT SEEING HOW THE BARIUM ENEMA COULD NOT GET PASS A POINT OF OBSTRUCTION THEREFORE COLONOSCOPY UNLIKELY TO TRAVERSE THIS AREA
--- NOTE | 2017-01-23 08:39 | General Progress Note ---
Subjective - Review of Systems Service Date: 01/23/17 Subjective: No BM's last night. Abd slightly distended. No acute distress. Afebrile. Awake , Alert. NG tube feeding. For surgical treatment today. Exp Lap Objective - Results Result Diagrams: 01/23/17 05:40 01/23/17 05:40 Recent Labs: Laboratory Last Values WBC 16.7 Th/cmm (4.8-10.8) H 01/23/17 05:40 RBC 3.79 Mil/cmm (3.80-5.80) L 01/23/17 05:40 Hgb 12.5 gm/dL (12-16) 01/23/17 05:40 Hct 36.5 % (41.0-60) L 01/23/17 05:40 MCV 96.3 fl (80-99) 01/23/17 05:40 MCH 33.1 pg (27.0-31.0) H 01/23/17 05:40 MCHC Differential 34.3 pg (28.0-36.0) 01/23/17 05:40 RDW 13.5 % (11.5-20.0) 01/23/17 05:40 Plt Count 195 Th/cmm (150-400) D 01/23/17 05:40 MPV 7.9 fl 01/23/17 05:40 Neutrophils % MIXING MACHINE FEEDER 01/18/17 05:37 Band Neutrophils % 4 % (0-10) 01/23/17 05:40 Lymphocytes % MIXING MACHINE FEEDER 01/18/17 05:37 Monocytes % MIXING MACHINE FEEDER 01/18/17 05:37 Eosinophils % MIXING MACHINE FEEDER 01/18/17 05:37 Basophils % MIXING MACHINE FEEDER 01/18/17 05:37 Neutrophils (Manual) 89 % (40-80) H 01/23/17 05:40 Lymphocytes 5 % (20-50) L 01/23/17 05:40 Monocytes 2 % (2-10) 01/23/17 05:40 Eosinophils 1 % (0-5) 01/20/17 05:44 Basophils 0 % (0-3) 01/19/17 10:00 Platelet Estimate ADEQUATE (NORMAL) 01/19/17 10:00 Platelet Morphology NORMAL (NORMAL) 01/19/17 10:00 Anisocytosis 1+ 01/06/17 12:32 RBC Morph Micro Appear NORMAL (NORMAL) 01/19/17 10:00 PT 11.9 SECONDS (9.5-11.5) H 01/23/17 05:40 INR 1.13 (0.5-1.4) 01/23/17 05:40 PTT (Actin FS) 24.1 SECONDS (26.0-38.0) L 01/23/17 05:40 Sodium 133 mEq/L (136-145) L 01/23/17 05:40 Potassium 3.7 mEq/L (3.5-5.1) 01/23/17 05:40 Chloride 104 mEq/L (98-107) 01/23/17 05:40 Carbon Dioxide 25.2 mEq/L (21.0-31.0) 01/23/17 05:40 Anion Gap 7.5 (7.0-16.0) 01/23/17 05:40 BUN 9 mg/dL (7-25) 01/23/17 05:40 Creatinine 0.5 mg/dL (0.7-1.3) L 01/23/17 05:40 Est GFR ( Amer) TNP 01/23/17 05:40 Est GFR (Non-Af Amer) TNP 01/23/17 05:40 BUN/Creatinine Ratio 18.0 01/23/17 05:40 Glucose 147 mg/dL (70-105) H 01/23/17 05:40 POC Glucose 127 MG/DL (70 - 105) H 01/23/17 08:11 Hemoglobin A1c % 5.7 % (4.0-6.0) 01/14/17 09:07 Whole Bld Lactic Acid 0.95 mmol/L (0.60-1.99) 01/06/17 10:53 Calcium 8.0 mg/dL (8.6-10.3) L 01/23/17 05:40 Phosphorus 2.2 mg/dL (2.5-5.0) L 01/16/17 05:00 Magnesium 2.3 mg/dL (1.9-2.7) 01/15/17 04:50 Total Bilirubin 0.7 mg/dL (0.3-1.0) 01/20/17 05:44 AST 24 U/L (13-39) 01/20/17 05:44 ALT 22 U/L (7-52) 01/20/17 05:44 Alkaline Phosphatase 53 U/L (34-104) 01/20/17 05:44 Creatine Kinase 52 U/L (30-223) 01/06/17 10:50 B-Natriuretic Peptide 189.0 pg/mL (5.0-100.0) H 01/18/17 05:37 Total Protein 5.1 gm/dL (6.0-8.3) L 01/20/17 05:44 Albumin 2.7 gm/dL (4.2-5.5) L 01/20/17 05:44 Globulin 2.4 gm/dL 01/20/17 05:44 Albumin/Globulin Ratio 1.1 (1.0-1.8) 01/20/17 05:44 Triglycerides 343 mg/dL (<150) H 01/11/17 09:15 Cholesterol 163 mg/dL (<200) 01/11/17 09:15 LDL Cholesterol Direct 82 mg/dL (75-193) 01/11/17 09:15 HDL Cholesterol 46 mg/dL (23-92) 01/11/17 09:15 TSH 0.39 uIU/ml (0.34-5.60) 01/06/17 11:59 PTH Intact 31 pg/mL (15-65) 01/06/17 12:09 Urine Source RAE PORT 01/15/17 14:00 Urine Color YELLOW 01/15/17 14:00 Urine Clarity SLIGHT CLOUDY (CLEAR) 01/15/17 14:00 Urine pH 6.0 (4.6 - 8.0) 01/15/17 14:00 Ur Specific [place] 1.020 (1.005-1.030) 01/15/17 14:00 Urine Protein NEGATIVE mg/dL (NEGATIVE) 01/15/17 14:00 Urine Glucose (UA) >=1000 mg/dL (NEGATIVE) H 01/15/17 14:00 Urine Ketones NEGATIVE mg/dL (NEGATIVE) 01/15/17 14:00 Urine Blood MODERATE (NEGATIVE) H 01/15/17 14:00 Urine Nitrate NEGATIVE (NEGATIVE) 01/15/17 14:00 Urine Bilirubin NEGATIVE (NEGATIVE) 01/15/17 14:00 Urine Urobilinogen 0.2 E.U./dL (0.2 - 1.0) 01/15/17 14:00 Ur Leukocyte Esterase NEGATIVE (NEGATIVE) 01/15/17 14:00 Urine RBC 10-25 /hpf (0-5) H 01/15/17 14:00 Urine WBC 2-5 /hpf (0-5) H 01/15/17 14:00 Ur Epithelial Cells FEW /lpf (FEW) 01/15/17 14:00 Amorphous Sediment MODERATE URATES (NONE SEEN) 01/11/17 16:00 Urine Bacteria FEW /hpf (NONE SEEN) 01/15/17 14:00 Fine Granular Casts 0-2 /lpf (NONE SEEN) H 01/11/17 16:00 Urine Mucus FEW /lpf (FEW) 01/15/17 14:00 Urine Yeast FEW /hpf (NONE SEEN) H 01/11/17 16:00 Gentamicin Peak 5.3 ug/ml (4.0-8.0) L 01/20/17 16:38 Gentamicin Trough 1.3 ug/ml (0.2-2.0) 01/21/17 02:13 Vancomycin Trough 7.3 ug/mL (10-20) L 01/14/17 08:05 - Physical Exam Vitals and I&O: Vital Signs Temp 98.8 F 01/23/17 04:00 Pulse 92 01/23/17 07:38 Resp 20 01/23/17 07:40 BP 107/66 01/23/17 04:00 Pulse Ox 95 01/23/17 07:38 Intake & Output 01/22/17 01/23/17 01/23/17 18:59 06:59 18:59 Intake Total 1100 100 Output Total 1400 Balance 1100 100 -1400 Weight (lbs) 60.328 kg 59.874 kg Intake: Intake, IV Amount 1100 100 D5-0.9NS w/KCL 20mEq 1, 1000 000 ml @ 50 mls/hr IV . Q20H [facility] Rx#:[id number] Levetiracetam 500mg/100mL 100 100 500 mg In 100 ml @ 400 mls/hr IV Q12HR@0900,2100 [facility] Rx#:[id number] Output: Urine 1400 Other: # Bowel Movements 2 Stool Characteristics Soft Formed Active Medications: Current Medications Acetaminophen (Tylenol 650mg Supp) 650 mg RC Q4H PRN PRN Reason: Fever > 101 Stop: 03/10/17 13:04 Last Admin: 01/12/17 03:37 Dose: 650 mg Albuterol/Ipratropium (Duoneb Neb) 3 ml HHN Q4HRT LIZY Stop: 03/11/17 14:59 Last Admin: 01/23/17 07:38 Dose: 3 ml Albuterol/Ipratropium (Duoneb Neb) 3 ml HHN Q2HRT PRN PRN Reason: Wheezing Stop: 03/11/17 13:46 Artificial Tears (Artificial Tears Ophth Soln) 1 drop EACH EYE BID LIZY Stop: 03/08/17 08:59 Last Admin: 01/22/17 16:07 Dose: 1 drop Ascorbic Acid (Vitamin C) 500 mg PO DAILY [facility] Stop: 03/08/17 08:59 Last Admin: 01/22/17 08:35 Dose: 500 mg Aspirin (Aspirin Chewable) 81 mg PO DAILY [facility] Stop: 03/13/17 08:59 Last Admin: 01/22/17 08:35 Dose: 81 mg Atorvastatin Calcium (Lipitor) 20 mg PO DAILY LIZY PRN Reason: Protocol Stop: 03/12/17 16:29 Last Admin: 01/22/17 08:35 Dose: 20 mg Atropine Sulfate (Atropine Syringe) 1 mg IVP Q4HR PRN PRN Reason: HR BELOW 40 Stop: 03/09/17 08:32 Last Admin: 01/09/17 01:00 Dose: 1 mg Bisacodyl (Dulcolax 10 Mg Supp) 10 mg RC HS [facility]ZY Stop: 03/14/17 20:59 Last Admin: 01/22/17 21:00 Dose: 10 mg Calcium/Vitamin D (Oscal W/Vitamin D) 1 tab PO DAILY [facility]ZY Stop: 03/08/17 08:59 Last Admin: 01/22/17 08:35 Dose: 1 tab Cyanocobalamin (Vitamin B12) 500 mcg PO DAILY [facility] Stop: 03/08/17 08:59 Last Admin: 01/22/17 08:35 Dose: 500 mcg Diltiazem HCl (Cardizem) 20 mg IVP Q4HR PRN PRN Reason: FOR HR>130 Stop: 03/13/17 03:53 Last Admin: 01/12/17 20:50 Dose: 20 mg Docusate Sodium (Colace) 100 mg PO DAILY [facility]ZY Stop: 03/08/17 08:59 Last Admin: 01/22/17 08:35 Dose: 100 mg Levetiracetam (Keppra Pb) 500 mg in 100 mls @ 400 mls/hr IV Q12HR@0900,2100 [facility] Stop: 03/13/17 10:29 Last Infusion: 01/22/17 22:18 Dose: Infused Potassium Chloride/Dextrose/Sod Cl (D5-0.9ns W/Kcl 20meq) 1,000 mls @ 50 mls/ hr IV .Q20H [facility]ZY Stop: 03/20/17 08:44 Last Admin: 01/22/17 15:48 Dose: 50 mls/hr Gentamicin Sulfate 240 mg/ (Sodium Chloride) 106 mls @ 100 mls/hr IV Q24H [facility] Stop: 03/23/17 13:59 Last Admin: 01/22/17 14:29 Dose: 100 mls/hr Insulin Aspart (Novolog Insulin Sliding Scale) 2 - 12 units SUBQ ACHS [facility]ZY PRN Reason: Protocol Stop: 03/16/17 20:59 Last Admin: 01/23/17 07:29 Dose: Not Given Lorazepam (Ativan) 1 mg IVP Q4HR PRN; Protocol PRN Reason: Seizure Stop: 03/15/17 09:07 Methylprednisolone Sodium Succinate (Solu-Medrol) 20 mg IVP Q12HR [facility] Stop: 03/19/17 15:43 Last Admin: 01/22/17 22:04 Dose: 20 mg Mineral Oil (Fleet Mineral Oil) 135 ml RC DAILY PRN PRN Reason: CONSTIPATION Stop: 03/13/17 12:59 Last Admin: 01/14/17 10:49 Dose: 135 ml Mineral Oil (Mineral Oil 30 Ml) 30 ml NG Q6HR [facility] Stop: 03/15/17 11:59 Last Admin: 01/23/17 07:29 Dose: Not Given Miscellaneous (Vte Chemical Prophylaxis Screen/ Admission) 1 ea MC PRN PRN PRN Reason: PROTOCOL Stop: 03/08/17 11:10 Miscellaneous (Probiotic Screen) 1 ea MC PRN PRN PRN Reason: PROTOCOL Stop: 03/13/17 13:54 Miscellaneous (Gentamicin Iv Per Pharmacy) 1 ea PRN PRN PRN Reason: PROTOCOL Stop: 03/19/17 08:25 Polyethylene Glycol (Miralax) 17 gm PO BID [facility] Stop: 03/14/17 16:59 Last Admin: 01/22/17 16:07 Dose: 17 gm Potassium Chloride (Klor-Con) 20 meq PO DAILY [facility]ZY Stop: 03/08/17 08:59 Last Admin: 01/22/17 08:35 Dose: 20 meq General: Alert, No acute distress HEENT: Atraumatic, PERRLA, EOMI Neck: Supple Cardiovascular: Regular rate, Normal S1, Normal S2 Lungs: Other (wheezing,) Abdomen: Bowel sounds, Distended, Other (non tender, no guarding, no rebound) Extremities: no Clubbing, no Cyanosis, no Edema Assessment/Plan - Problem List Patient Problems: All Active Problems Constipation (Acute) K59.00 Dementia (Acute) F03.90 Facial twitching (Acute) G51.4 Hypocalcemia (Acute) E83.51 Hypokalemia (Acute) E87.6 Hypomagnesemia (Acute) E83.42 Hypophosphatemia (Acute) E83.39 Ileus (Acute) K56.7 Leukocytosis (Acute) D72.829 Multiple sclerosis (Acute) G35 Seizure disorder (Acute) G40.909 Sinus bradycardia (Acute) R00.1 - Assessment Assessment: ALOC ... improved. CT head NAD, CT carotid no significant stenosis. hypotensive ... improved. will continue IV fluid support. hypernatremia Na 156+ hypokalemia ... will change fluids to D5 1/2NS @ 75cc/hr. add KCL to fluids. . Electrolyte imbalance ... will continue to monitor daily and correct as needed. 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 for carotid duplex, results pending. Leukocytosis improved ... continue Vancomycin IV and Zosyn IV per pharmacy. MS acute exacerbation ... stable. Patient to continue steroids IV. Ileus vs SBO .... keep NPO. continue IV fluids. will order KUB for today. cardiac arrhythmia ... continue anti-arrythmics per Cardiology Seizure disorder ... on Keppra UTI +Pseudomonas ... continue current IV antibiotics. Hyperglycemia ... will decrease solumedrol. dc D5W. - Plan Plan: ALOC ... improved. CT head NAD, CT carotid NAD. hypotensive ... improved. will continue IV fluid support. hypernatremia Na 156+ hypokalemia ... will change fluids to D5 1/2NS @ 75cc/hr. add KCL to fluids. check CMP,Mg,Phos,Ca tomorrow. Electrolyte imbalance ... will continue to monitor daily and correct as needed. CVA per MRI head ... management per Dr. Franklin. patient on Heparin drip. for carotid duplex. Leukocytosis improved ... WBC's 10K ... DC Rocephin. Will start Vancomycin IV and Zosyn IV per pharmacy MS acute exacerbation ... stable. Patient to continue steroids IV please see neurology consult, CT head neg, constipation ... continue current treatment per GI. cardiac arrhythmia ... continue treatment per Cardiology Nutritional Asmnt/Malnutr-PDOC - Dietary Evaluation Malnutrition Findings (Please click <Entered> for more info): Nutritional Asmnt/Malnutrition Start: 01/08/17 12: 55 Text: Status: Complete Freq: Document 01/08/17 12:56 GSUN (Rec: 01/08/17 13:16 GSUN [id number]) Nutritional Asmnt/Malnutrition Patient General Information Nutritional Screening Consult Diagnosis ALOC, acute MS exacerbation Pertinent Medical Hx/Surgical Hx Dementia, multiple sclerosis, constipation Subjective Information 76 year old male from SNF. RD consult for laura Huntley. Per RN notes, facial twitching on adm, currently NPO with swallow eval pending. Pt was awake during visit, followed RD with eyes, did not provide any information. Mild wasting to chest noted, loose skin to arms. Current Diet Order/ Nutrition Support NPO Pertinent Medications Vitamin C, Oscal W/Vitamin D, Vitamin B12, D5-0.45ns, Dulcolax, Colace Pertinent Labs 01/08: reviewed. Glucose 148H Nutritional Hx/Data Height 1.85 m Height (Calculated Centimeters) 185.4 Current Weight (lbs) 69.49 kg Weight (Calculated Kilograms) 69.5 Weight (Calculated Grams) 65968.4 [place] Body Weight 184 Weight Status Approriate GI Symptoms Usual diet at home [facility]: pureed, large portion lunch and dinner, 4oz house supplement Skin Integrity/Comment: Audi 12. Pressure area r foot and upper back, abrasion l knee and r leg Estimated Nutritional Goals BEE in Kcals: Using Current wt Calories/Kcals/Kg IBW 184lb/83.6kg with consideration skin integrity and BMI Kcals Calculated 2089-250kcal (25-30kcal/kg) Protein: Using Current wt Protein Calculated 84-109g (1-1.3g/kg) Fluid: ml 2089-2508ml (1ml/kcal) Nutritional Problem 2. Problem Problem Increased prot needs related to Etiology skin integrity aeb Signs/Symptoms: fish protector: pressure area to right foot and upper back, abrasion ro left knee and right lower leg 1. 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 Recommend regular diet, diet texture per swallow eval (pending). SNF order pureed. Expected Outcomes/Goals Expected Outcomes/Goals 1. PO intake to meet at least 75% of estimated nutritional needs.
[2017-01-23] MEDS ORDERED: Midazolam 1mg/ml 2 ml vial IV ONE (09:22)
[2017-01-23] MEDS ORDERED: Meperidine 50 mg/mL 1mL Syr ONE (09:22)
[2017-01-23] MEDS: Aspirin 81mg Chewable Tab PO SCH (09:38)
[2017-01-23] MEDS: Atorvastatin Calcium 10 MG TAB PO SCH (09:38)
[2017-01-23] MEDS: Calcium Carb/Vit D 500 mg/200 U Tab PO SCH (09:39)
[2017-01-23] MEDS: POLYETHYLENE GLYCOL 3350 17 GM PACK PO SCH ×2 (09:39→17:27)
[2017-01-23] MEDS: Levetiracetam 500mg/100mL 500 MG/100 ML BAG IV SCH ×2 (09:39→21:18)
[2017-01-23] MEDS: Multivitamin w/ Minerals Tab PO SCH (09:39)
[2017-01-23] MEDS: methylPREDNISolone SS 40 mg Vial IVP SCH ×2 (09:39→21:16)
[2017-01-23] MEDS: Polyvinyl Alcohol Ophth Soln 15 mL Bottle EACH EYE SCH ×2 (09:43→17:27)
[2017-01-23] MEDS: Potassium Chloride 20 mEq ER Tab PO SCH (09:43)
[2017-01-23] MEDS ORDERED: Piperacillin Sodium/Tazobact 3.375 gm Vial IV ONE (10:17)
[2017-01-23] MEDS ORDERED: Meperidine 25 mg/mL 1mL Syr IVP PRN (11:31)
[2017-01-23] MEDS ORDERED: Lactated Ringer 1,000 ML IV SCH (11:45)
[2017-01-23] MEDS ORDERED: ISOFLURANE 100 ML BOTTLE INH ONE (13:00)
[2017-01-23] MEDS: D5-0.9NS w/KCL 20mEq 1,000 ML IV SCH (13:00)
--- NOTE | 2017-01-23 13:32 | Operative Report ---
DATE OF SURGERY: 01/23/2017 PREOPERATIVE DIAGNOSES: 1. Toxic megacolon. 2. Cholecystolithiasis. 3. Dementia. 4. Chronic constipation. POSTOPERATIVE DIAGNOSES: 1. Toxic megacolon. 2. Cholecystolithiasis. 3. Dementia. 4. Chronic constipation. RECOMMENDATIONS: Exploratory laparotomy with: 1. Total colectomy. 2. Cholecystectomy. 3. Diverting ileostomy. 4. Mobilization of the hepatic flexure. 5. Mobilization of the splenic flexure. SURGEON: Africa Schwartz M.D. EXTRACTION SUPERVISOR: Dr. Velasquez. ANESTHESIA: General. ANESTHESIOLOGIST: Miguel A Haywood M.D. ESTIMATED BLOOD LOSS: 200 mL. INDICATIONS FOR SURGERY: The patient has rising leukocytosis to 18,000 and markedly dilated colon. OPERATIVE FINDINGS: Markedly dilated colon throughout its length, which now measures approximately 10 feet at the time of resection. The distal sigmoid was transected. The rest of the colon was transected from the cecum all the way down to the pelvis. DESCRIPTION OF PROCEDURE: The patient was given general anesthesia. The abdomen was prepped with ChloraPrep and draped in appropriate manner. An incision made at midline from the subxiphoid to suprapubic area. This had to be done because of the marked dilatation of the large bowel, which made it impossible to see well. The descending colon was identified and the ligament of Toldt was incised allowing dissection of the colon away from the retroperitoneal space. The size of the colon, the distal end of the sigmoid was approximately 20 cm. This had to be transected twice with GI instrument. This was then oversewn with running suture of 3-0 silk. Following transection of the sigmoid colon, the ligament of Toldt was dissected away from the lateral gutter and this was swept medially. The splenic flexure was transected utilizing SupraGel. This allowed for freeing it away from the spleen and from the stomach. Across the transverse colon, the gastrocolic omentum was divided and the dissection was carried all the way to the right side where the hepatic flexure was then mobilized and freed away from the liver. The gallbladder was removed at this time by removing the serosa away from the liver bed and dissecting downward in a retrograde fashion. When the infundibulum was identified, this was then transected and ligated with 2-0 silk. There are multiple stones in the gallbladder. Rest of dissection was then carried laterally on the right side, again stripping the ligament of Toldt away from the lateral wall of the retroperitoneum. The distal ileum was then divided with the GI instrument. The mesentery was transected utilizing the SupraGel. Hemostasis was rechecked and it was satisfactory. There was some oozing in the retroperitoneum, which was cauterized. Following satisfactory hemostasis, the distal ileum was brought out as an ileostomy in the right flank. Buttonhole incision was made and the fascia was divided vertically. The distal ileum was then brought out through this. The mesentery was sutured to the lateral abdominal wall utilizing running suture of 2-0 silk and the ileum at the ileostomy site was anchored and the abdominal wall utilizing interrupted sutures of 3-0 silk. Following correct sponge count, a Jarod-Dobbs drain was left in the pelvis and the left gutter. The incision was closed with running suture of #1 PDS and the skin was closed with subcuticular suture of 4-0 Vicryl. The ileostomy was matured utilizing an inverting suture of 4-0 Vicryl. The patient will be sent to ICU for further monitoring. JOB# [id number]
[2017-01-23] MEDS: Gentamicin 240 MG in Sodium Chloride 0.9% 100 ML IV SCH (14:00)
[2017-01-23] MEDS: Chlorhexidine Gluconate 0.12% 15mL Mouthwash MM SCH (21:35)
[2017-01-23] MEDS ORDERED: Sodium Chloride 0.9% 250 ML IV ONE (23:14)
[2017-01-24] MEDS ORDERED: Albumin 25% 12.5gm/50mL 12.5 GM/50 ML BTL IV ONE (00:15)
[2017-01-24] MEDS ORDERED: Norepinephrine 4 mg/4mL Vial IV ONE (01:10)
[2017-01-24] MEDS: Albuterol/Ipratropium Neb 3 ML AERS HHN SCH ×6 (03:13→22:57)
[2017-01-24 04:44] LABS: PLATELET COUNT 196 Th/cmm (150-400)
[2017-01-24 05:02] LABS: ALB/GLOB RATIO 1.5 (1.0-1.8); ALKALINE PHOSPHATASE 38 U/L (34-104); ANION GAP 7.9 (7.0-16.0); BILIRUBIN,TOTAL 1.1 mg/dL (0.3-1.0); BUN - UREA NITROGEN 12 mg/dL (7-25); CALCIUM SERUM 7.5 mg/dL (8.6-10.3); CHLORIDE 109 mEq/L (98-107); CREATININE - SERUM 0.6 mg/dL (0.7-1.3); GLUCOSE 163 mg/dL (70-105); HEMATOCRIT 32.4 % (41.0-60); HEMOGLOBIN 10.9 gm/dL (12-16); MEAN CELL VOLUME 96.2 fl (80-99); MEAN CORPUSCULAR HEMOGLOBIN 32.5 pg (27.0-31.0); MEAN CORPUSCULAR HGB CONC 33.8 pg (28.0-36.0); MEAN PLATELET VOLUME 8.2 fl; POTASSIUM SERUM 3.9 mEq/L (3.5-5.1); RED BLOOD COUNT 3.37 Mil/cmm (3.80-5.80); RED CELL DISTRIBUTION WIDTH 13.8 % (11.5-20.0); SGOT 14 U/L (13-39); SGPT/ALT 17 U/L (7-52); SODIUM SERUM 137 mEq/L (136-145)
[2017-01-24 05:07] LABS: WHITE BLOOD COUNT 18.9 Th/cmm (4.8-10.8)
[2017-01-24 06:04] LABS: BAND NEUTROPHILE 8 % (0-10); NEUTROPHILS 84 % (40-80); TOTAL CELLS COUNTED 100
[2017-01-24] MEDS: INSULIN ASPART SLIDING SCALE 100 UNITS/ML UNIT SUBQ SCH ×5 (07:30→21:03)
--- NOTE | 2017-01-24 08:31 | General Progress Note ---
Subjective - Review of Systems Service Date: 01/24/17 Subjective: S/p total Colectomy. Transferred to ICU for acute respiratory failure. Patient on mechanical vent. Objective - Results Result Diagrams: 01/24/17 04:30 01/24/17 04:30 Recent Labs: Laboratory Last Values WBC 18.9 Th/cmm (4.8-10.8) H 01/24/17 04:30 RBC 3.37 Mil/cmm (3.80-5.80) L 01/24/17 04:30 Hgb 10.9 gm/dL (12-16) L 01/24/17 04:30 Hct 32.4 % (41.0-60) L D 01/24/17 04:30 MCV 96.2 fl (80-99) 01/24/17 04:30 MCH 32.5 pg (27.0-31.0) H 01/24/17 04:30 MCHC Differential 33.8 pg (28.0-36.0) 01/24/17 04:30 RDW 13.8 % (11.5-20.0) 01/24/17 04:30 Plt Count 196 Th/cmm (150-400) 01/24/17 04:30 MPV 8.2 fl 01/24/17 04:30 Neutrophils % STUDENT RECRUITER 01/24/17 04:30 Band Neutrophils % 8 % (0-10) 01/24/17 04:30 Lymphocytes % STUDENT RECRUITER 01/24/17 04:30 Monocytes % STUDENT RECRUITER 01/24/17 04:30 Eosinophils % STUDENT RECRUITER 01/18/17 05:37 Basophils % STUDENT RECRUITER 01/18/17 05:37 Neutrophils (Manual) 84 % (40-80) H 01/24/17 04:30 Lymphocytes 6 % (20-50) L 01/24/17 04:30 Monocytes 2 % (2-10) 01/24/17 04:30 Eosinophils 1 % (0-5) 01/20/17 05:44 Basophils 0 % (0-3) 01/19/17 10:00 Platelet Estimate ADEQUATE (NORMAL) 01/19/17 10:00 Platelet Morphology NORMAL (NORMAL) 01/19/17 10:00 Anisocytosis 1+ 01/06/17 12:32 RBC Morph Micro Appear NORMAL (NORMAL) 01/19/17 10:00 PT 11.9 SECONDS (9.5-11.5) H 01/23/17 05:40 INR 1.13 (0.5-1.4) 01/23/17 05:40 PTT (Actin FS) 24.1 SECONDS (26.0-38.0) L 01/23/17 05:40 Sodium 137 mEq/L (136-145) 01/24/17 04:30 Potassium 3.9 mEq/L (3.5-5.1) 01/24/17 04:30 Chloride 109 mEq/L (98-107) H 01/24/17 04:30 Carbon Dioxide 24.0 mEq/L (21.0-31.0) 01/24/17 04:30 Anion Gap 7.9 (7.0-16.0) 01/24/17 04:30 BUN 12 mg/dL (7-25) 01/24/17 04:30 Creatinine 0.6 mg/dL (0.7-1.3) L 01/24/17 04:30 Est GFR ( Amer) TNP 01/24/17 04:30 Est GFR (Non-Af Amer) TNP 01/24/17 04:30 BUN/Creatinine Ratio 20.0 01/24/17 04:30 Glucose 163 mg/dL (70-105) H 01/24/17 04:30 POC Glucose 141 MG/DL (70 - 105) H 01/24/17 06:03 Hemoglobin A1c % 5.7 % (4.0-6.0) 01/14/17 09:07 Whole Bld Lactic Acid 0.95 mmol/L (0.60-1.99) 01/06/17 10:53 Calcium 7.5 mg/dL (8.6-10.3) L 01/24/17 04:30 Phosphorus 2.2 mg/dL (2.5-5.0) L 01/16/17 05:00 Magnesium 2.3 mg/dL (1.9-2.7) 01/15/17 04:50 Total Bilirubin 1.1 mg/dL (0.3-1.0) H 01/24/17 04:30 AST 14 U/L (13-39) 01/24/17 04:30 ALT 17 U/L (7-52) 01/24/17 04:30 Alkaline Phosphatase 38 U/L (34-104) 01/24/17 04:30 Creatine Kinase 52 U/L (30-223) 01/06/17 10:50 B-Natriuretic Peptide 189.0 pg/mL (5.0-100.0) H 01/18/17 05:37 Total Protein 4.2 gm/dL (6.0-8.3) L 01/24/17 04:30 Albumin 2.5 gm/dL (4.2-5.5) L 01/24/17 04:30 Globulin 1.7 gm/dL 01/24/17 04:30 Albumin/Globulin Ratio 1.5 (1.0-1.8) 01/24/17 04:30 Triglycerides 343 mg/dL (<150) H 01/11/17 09:15 Cholesterol 163 mg/dL (<200) 01/11/17 09:15 LDL Cholesterol Direct 82 mg/dL (75-193) 01/11/17 09:15 HDL Cholesterol 46 mg/dL (23-92) 01/11/17 09:15 TSH 0.39 uIU/ml (0.34-5.60) 01/06/17 11:59 PTH Intact 31 pg/mL (15-65) 01/06/17 12:09 Urine Source RAE PORT 01/15/17 14:00 Urine Color YELLOW 01/15/17 14:00 Urine Clarity SLIGHT CLOUDY (CLEAR) 01/15/17 14:00 Urine pH 6.0 (4.6 - 8.0) 01/15/17 14:00 Ur Specific [place] 1.020 (1.005-1.030) 01/15/17 14:00 Urine Protein NEGATIVE mg/dL (NEGATIVE) 01/15/17 14:00 Urine Glucose (UA) >=1000 mg/dL (NEGATIVE) H 01/15/17 14:00 Urine Ketones NEGATIVE mg/dL (NEGATIVE) 01/15/17 14:00 Urine Blood MODERATE (NEGATIVE) H 01/15/17 14:00 Urine Nitrate NEGATIVE (NEGATIVE) 01/15/17 14:00 Urine Bilirubin NEGATIVE (NEGATIVE) 01/15/17 14:00 Urine Urobilinogen 0.2 E.U./dL (0.2 - 1.0) 01/15/17 14:00 Ur Leukocyte Esterase NEGATIVE (NEGATIVE) 01/15/17 14:00 Urine RBC 10-25 /hpf (0-5) H 01/15/17 14:00 Urine WBC 2-5 /hpf (0-5) H 01/15/17 14:00 Ur Epithelial Cells FEW /lpf (FEW) 01/15/17 14:00 Amorphous Sediment MODERATE URATES (NONE SEEN) 01/11/17 16:00 Urine Bacteria FEW /hpf (NONE SEEN) 01/15/17 14:00 Fine Granular Casts 0-2 /lpf (NONE SEEN) H 01/11/17 16:00 Urine Mucus FEW /lpf (FEW) 01/15/17 14:00 Urine Yeast FEW /hpf (NONE SEEN) H 01/11/17 16:00 Gentamicin Peak 5.3 ug/ml (4.0-8.0) L 01/20/17 16:38 Gentamicin Trough 1.3 ug/ml (0.2-2.0) 01/21/17 02:13 Vancomycin Trough 7.3 ug/mL (10-20) L 01/14/17 08:05 Blood Type O POSITIVE 01/23/17 05:40 Antibody Screen NEGATIVE 01/23/17 05:40 - Physical Exam Vitals and I&O: Vital Signs Temp 98.2 F 01/24/17 04:00 Pulse 79 01/24/17 06:45 Resp 14 01/24/17 05:00 BP 95/61 01/24/17 06:45 Pulse Ox 100 01/24/17 06:00 Intake & Output 01/23/17 01/24/17 01/24/17 18:59 06:59 18:59 Intake Total 1106 Output Total 2230 640 150 Balance -1124 -640 -150 Weight (lbs) 74.871 kg 68.946 kg 53.977 kg Intake: Intake, IV Amount 1106 D5-0.9NS w/KCL 20mEq 1, 1000 000 ml @ 50 mls/hr IV . Q20H LIZ[facility] Rx#:[id number] Gentamicin 240 mg In 106 Sodium Chloride 0.9% 100 ml @ 100 mls/hr IV Q24H LIZY Rx#:[id number] Output: Drainage 380 160 150 Right Lower Abdomen 380 160 150 Urine 1850 350 Stool 0 Other 130 Other: # Bowel Movements 1 0 Stool Characteristics Liquid Brown Active Medications: Current Medications Acetaminophen (Tylenol 650mg Supp) 650 mg RC Q4H PRN PRN Reason: Fever > 101 Stop: 03/10/17 13:04 Last Admin: 01/12/17 03:37 Dose: 650 mg Albuterol/Ipratropium (Duoneb Neb) 3 ml HHN Q4HRT LIZY Stop: 03/11/17 14:59 Last Admin: 01/24/17 07:52 Dose: 3 ml Albuterol/Ipratropium (Duoneb Neb) 3 ml HHN Q2HRT PRN PRN Reason: Wheezing Stop: 03/11/17 13:46 Artificial Tears (Artificial Tears Ophth Soln) 1 drop EACH EYE BID LIYZ Stop: 03/08/17 08:59 Last Admin: 01/23/17 17:27 Dose: 1 drop Ascorbic Acid (Vitamin C) 500 mg PO DAILY [facility] Stop: 03/08/17 08:59 Last Admin: 01/23/17 09:38 Dose: Not Given Aspirin (Aspirin Chewable) 81 mg PO DAILY [facility] Stop: 03/13/17 08:59 Last Admin: 01/23/17 09:38 Dose: Not Given Atorvastatin Calcium (Lipitor) 20 mg PO DAILY LIZY PRN Reason: Protocol Stop: 03/12/17 16:29 Last Admin: 01/23/17 09:38 Dose: Not Given Atropine Sulfate (Atropine Syringe) 1 mg IVP Q4HR PRN PRN Reason: HR BELOW 40 Stop: 03/09/17 08:32 Last Admin: 01/09/17 01:00 Dose: 1 mg Bisacodyl (Dulcolax 10 Mg Supp) 10 mg RC HS [facility] Stop: 03/14/17 20:59 Last Admin: 01/23/17 21:36 Dose: Not Given Calcium/Vitamin D (Oscal W/Vitamin D) 1 tab PO DAILY [facility]ZY Stop: 03/08/17 08:59 Last Admin: 01/23/17 09:39 Dose: Not Given Chlorhexidine Gluconate (Peridex) 15 ml MM 0800,2000 [facility] Stop: 03/24/17 19:59 Last Admin: 01/23/17 21:35 Dose: 15 ml Cyanocobalamin (Vitamin B12) 500 mcg PO DAILY [facility] Stop: 03/08/17 08:59 Last Admin: 01/23/17 09:39 Dose: Not Given Diltiazem HCl (Cardizem) 20 mg IVP Q4HR PRN PRN Reason: FOR HR>130 Stop: 03/13/17 03:53 Last Admin: 01/12/17 20:50 Dose: 20 mg Docusate Sodium (Colace) 100 mg PO DAILY [facility] Stop: 03/08/17 08:59 Last Admin: 01/23/17 09:39 Dose: Not Given Levetiracetam (Keppra Pb) 500 mg in 100 mls @ 400 mls/hr IV Q12HR@0900,2100 [facility] Stop: 03/13/17 10:29 Last Admin: 01/23/17 21:18 Dose: 400 mls/hr Potassium Chloride/Dextrose/Sod Cl (D5-0.9ns W/Kcl 20meq) 1,000 mls @ 50 mls/ hr IV .Q20H [facility] Stop: 03/20/17 08:44 Last Admin: 01/23/17 13:00 Dose: 50 mls/hr Gentamicin Sulfate 240 mg/ (Sodium Chloride) 106 mls @ 100 mls/hr IV Q24H [facility] Stop: 03/23/17 13:59 Last Infusion: 01/23/17 15:05 Dose: Infused Norepinephrine Bitartrate 4 mg (/ Dextrose) 254 mls @ 11.43 mls/hr IV TITR PRN ; Protocol; 3 MCG/MIN PRN Reason: BP MAINTENANCE (PER PROTOCOL) Stop: 03/25/17 00:15 Last Admin: 01/24/17 02:21 Dose: 3 mcg/min, 11.43 mls/hr Insulin Aspart (Novolog Insulin Sliding Scale) 2 - 12 units SUBQ ACHS LIZY PRN Reason: Protocol Stop: 03/16/17 20:59 Last Admin: 01/23/17 17:26 Dose: Not Given Lorazepam (Ativan) 1 mg IVP Q4HR PRN; Protocol PRN Reason: Seizure Stop: 03/15/17 09:07 Last Admin: 01/23/17 15:05 Dose: 1 mg Methylprednisolone Sodium Succinate (Solu-Medrol) 20 mg IVP Q12HR [facility] Stop: 03/19/17 15:43 Last Admin: 01/23/17 21:16 Dose: 20 mg Mineral Oil (Fleet Mineral Oil) 135 ml RC DAILY PRN PRN Reason: CONSTIPATION Stop: 03/13/17 12:59 Last Admin: 01/14/17 10:49 Dose: 135 ml Mineral Oil (Mineral Oil 30 Ml) 30 ml NG Q6HR [facility] Stop: 03/15/17 11:59 Last Admin: 01/24/17 06:00 Dose: Not Given Miscellaneous (Vte Chemical Prophylaxis Screen/ Admission) 1 ea MC PRN PRN PRN Reason: PROTOCOL Stop: 03/08/17 11:10 Miscellaneous (Probiotic Screen) 1 ea PRN PRN PRN Reason: PROTOCOL Stop: 03/13/17 13:54 Miscellaneous (Gentamicin Iv Per Pharmacy) 1 ea PRN PRN PRN Reason: PROTOCOL Stop: 03/19/17 08:25 Morphine Sulfate (Morphine) 2 mg IM Q4HR PRN PRN Reason: Pain (Moderate) Stop: 03/24/17 17:05 Ondansetron HCl (Zofran) 4 mg IV UD PRN PRN Reason: Nausea / Vomiting Stop: 03/24/17 11:30 Polyethylene Glycol (Miralax) 17 gm PO BID [facility] Stop: 03/14/17 16:59 Last Admin: 01/23/17 17:27 Dose: Not Given Potassium Chloride (Klor-Con) 20 meq PO DAILY [facility] Stop: 03/08/17 08:59 Last Admin: 01/23/17 09:43 Dose: Not Given General: Alert, No acute distress HEENT: Atraumatic, PERRLA, EOMI Neck: Supple Cardiovascular: Regular rate, Normal S1, Normal S2 Lungs: Other (wheezing,) Abdomen: Bowel sounds, Distended, Other (non tender, no guarding, no rebound) Extremities: no Clubbing, no Cyanosis, no Edema - Procedures Procedures: Procedures Procedure Code Date BYPASS ILEUM TO CUTANEOUS, OPEN APPROACH [id number] 01/06/17 REMOVAL OF COLON 26856 01/06/17 REMOVAL OF GALLBLADDER 48731 01/06/17 RESECTION OF GALLBLADDER, OPEN APPROACH [id number] 01/06/17 RESECTION OF LARGE INTESTINE, OPEN APPROACH [id number] 01/06/17 Assessment/Plan - Problem List Patient Problems: All Active Problems Constipation (Acute) K59.00 Dementia (Acute) F03.90 Facial twitching (Acute) G51.4 Hypocalcemia (Acute) E83.51 Hypokalemia (Acute) E87.6 Hypomagnesemia (Acute) E83.42 Hypophosphatemia (Acute) E83.39 Ileus (Acute) K56.7 Leukocytosis (Acute) D72.829 Multiple sclerosis (Acute) G35 Seizure disorder (Acute) G40.909 Sinus bradycardia (Acute) R00.1 - Assessment Assessment: ALOC ... improved. CT head NAD, CT carotid no significant stenosis. hypotensive ... improved. will continue IV fluid support. hypernatremia Na 156+ hypokalemia ... will change fluids to D5 1/2NS @ 75cc/hr. add KCL to fluids. . Electrolyte imbalance ... will continue to monitor daily and correct as needed. 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 for carotid duplex, results pending. Leukocytosis improved ... continue Vancomycin IV and Zosyn IV per pharmacy. MS acute exacerbation ... stable. Patient to continue steroids IV. Ileus vs SBO .... keep NPO. continue IV fluids. will order KUB for today. cardiac arrhythmia ... continue anti-arrythmics per Cardiology Seizure disorder ... on Keppra UTI +Pseudomonas ... continue current IV antibiotics. Hyperglycemia ... will decrease solumedrol. dc D5W. - Plan Plan: Acute respiratory failure ... pulmonary consult for vent support. toxic megacolon s/p total colectomy ... TPN ? hypocalcemia ... will order Calcium supplements Leukocytosis ... will continue IV antibiotics per ID Electrolyte imbalance ... will continue to monitor daily and correct as needed. CVA per MRI head ... management per Dr. Franklin. patient on Heparin drip. for carotid duplex. MS acute exacerbation ... stable. on low dose steroids. Nutritional Asmnt/Malnutr-PDOC - Dietary Evaluation Malnutrition Findings (Please click <Entered> for more info): Nutritional Asmnt/Malnutrition Start: 01/08/17 12: 55 Text: Status: Complete Freq: Document 01/08/17 12:56 GSUN (Rec: 01/08/17 13:16 [email or web address] [id number]) Nutritional Asmnt/Malnutrition Patient General Information Nutritional Screening Consult Diagnosis ALOC, acute MS exacerbation Pertinent Medical Hx/Surgical Hx Dementia, multiple sclerosis, constipation Subjective Information 76 year old male from SNF. RD consult for laura Huntley. Per RN notes, facial twitching on adm, currently NPO with swallow eval pending. Pt was awake during visit, followed RD with eyes, did not provide any information. Mild wasting to chest noted, loose skin to arms. Current Diet Order/ Nutrition Support NPO Pertinent Medications Vitamin C, Oscal W/Vitamin D, Vitamin B12, D5-0.45ns, Dulcolax, Colace Pertinent Labs 01/08: reviewed. Glucose 148H Nutritional Hx/Data Height 1.85 m Height (Calculated Centimeters) 185.4 Current Weight (lbs) 69.49 kg Weight (Calculated Kilograms) 69.5 Weight (Calculated Grams) 83902.4 [place] Body Weight 184 Weight Status Approriate GI Symptoms Usual diet at home [facility]: pureed, large portion lunch and dinner, 4oz house supplement Skin Integrity/Comment: Audi 12. Pressure area r foot and upper back, abrasion l knee and r leg Estimated Nutritional Goals BEE in Kcals: Using Current wt Calories/Kcals/Kg IBW 184lb/83.6kg with consideration skin integrity and BMI Kcals Calculated 2090-2508kcal (25-30kcal/kg) Protein: Using Current wt Protein Calculated 84-109g (1-1.3g/kg) Fluid: ml 0-2508ml (1ml/kcal) Nutritional Problem 2. 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 Recommend regular diet, diet texture per swallow eval (pending). SNF order pureed. Expected Outcomes/Goals Expected Outcomes/Goals 1. PO intake to meet at least 75% of estimated nutritional needs.
[2017-01-24] MEDS: Potassium Chloride 20 mEq ER Tab PO SCH (09:00)
[2017-01-24] MEDS: POLYETHYLENE GLYCOL 3350 17 GM PACK PO SCH ×2 (09:00→18:33)
[2017-01-24] MEDS: Multivitamin w/ Minerals Tab PO SCH (09:00)
[2017-01-24] MEDS: Levetiracetam 500mg/100mL 500 MG/100 ML BAG IV SCH ×2 (09:39→20:45)
[2017-01-24] MEDS: methylPREDNISolone SS 40 mg Vial IVP SCH ×2 (09:40→20:32)
[2017-01-24] MEDS: Chlorhexidine Gluconate 0.12% 15mL Mouthwash MM SCH ×2 (09:55→21:28)
[2017-01-24] MEDS ORDERED: Calcium Gluconate 1 GM in Sodium Chloride 0.9% 100 ML IV ONE (10:00)
[2017-01-24] MEDS: Atorvastatin Calcium 10 MG TAB PO SCH (10:01)
[2017-01-24] MEDS: Aspirin 81mg Chewable Tab PO SCH (10:01)
[2017-01-24] MEDS: Calcium Carb/Vit D 500 mg/200 U Tab PO SCH (10:02)
--- NOTE | 2017-01-24 13:31 | GI Progress Note ---
Subjective - Review of Systems Subjective: S/P SURGERY NO OTHER EVENTS Objective - Results Result Diagrams: 01/24/17 04:30 01/24/17 04:30 Recent Labs: Laboratory Last Values WBC 18.9 Th/cmm (4.8-10.8) H 01/24/17 04:30 RBC 3.37 Mil/cmm (3.80-5.80) L 01/24/17 04:30 Hgb 10.9 gm/dL (12-16) L 01/24/17 04:30 Hct 32.4 % (41.0-60) L D 01/24/17 04:30 MCV 96.2 fl (80-99) 01/24/17 04:30 MCH 32.5 pg (27.0-31.0) H 01/24/17 04:30 MCHC Differential 33.8 pg (28.0-36.0) 01/24/17 04:30 RDW 13.8 % (11.5-20.0) 01/24/17 04:30 Plt Count 196 Th/cmm (150-400) 01/24/17 04:30 MPV 8.2 fl 01/24/17 04:30 Neutrophils % [employer] OPERATOR 01/24/17 04:30 Band Neutrophils % 8 % (0-10) 01/24/17 04:30 Lymphocytes % [employer] MACHINE OPERATOR 01/24/17 04:30 Monocytes % [employer] MACHINE OPERATOR 01/24/17 04:30 Eosinophils % [employer] MACHINE OPERATOR 01/18/17 05:37 Basophils % [employer] MACHINE OPERATOR 01/18/17 05:37 Neutrophils (Manual) 84 % (40-80) H 01/24/17 04:30 Lymphocytes 6 % (20-50) L 01/24/17 04:30 Monocytes 2 % (2-10) 01/24/17 04:30 Eosinophils 1 % (0-5) 01/20/17 05:44 Basophils 0 % (0-3) 01/19/17 10:00 Platelet Estimate ADEQUATE (NORMAL) 01/19/17 10:00 Platelet Morphology NORMAL (NORMAL) 01/19/17 10:00 Anisocytosis 1+ 01/06/17 12:32 RBC Morph Micro Appear NORMAL (NORMAL) 01/19/17 10:00 PT 11.9 SECONDS (9.5-11.5) H 01/23/17 05:40 INR 1.13 (0.5-1.4) 01/23/17 05:40 PTT (Actin FS) 24.1 SECONDS (26.0-38.0) L 01/23/17 05:40 Sodium 137 mEq/L (136-145) 01/24/17 04:30 Potassium 3.9 mEq/L (3.5-5.1) 01/24/17 04:30 Chloride 109 mEq/L (98-107) H 01/24/17 04:30 Carbon Dioxide 24.0 mEq/L (21.0-31.0) 01/24/17 04:30 Anion Gap 7.9 (7.0-16.0) 01/24/17 04:30 BUN 12 mg/dL (7-25) 01/24/17 04:30 Creatinine 0.6 mg/dL (0.7-1.3) L 01/24/17 04:30 Est GFR ( Amer) TNP 01/24/17 04:30 Est GFR (Non-Af Amer) TNP 01/24/17 04:30 BUN/Creatinine Ratio 20.0 01/24/17 04:30 Glucose 163 mg/dL (70-105) H 01/24/17 04:30 POC Glucose 112 MG/DL (70 - 105) H 01/24/17 12:42 Hemoglobin A1c % 5.7 % (4.0-6.0) 01/14/17 09:07 Whole Bld Lactic Acid 0.95 mmol/L (0.60-1.99) 01/06/17 10:53 Calcium 7.5 mg/dL (8.6-10.3) L 01/24/17 04:30 Phosphorus 2.2 mg/dL (2.5-5.0) L 01/16/17 05:00 Magnesium 2.3 mg/dL (1.9-2.7) 01/15/17 04:50 Total Bilirubin 1.1 mg/dL (0.3-1.0) H 01/24/17 04:30 AST 14 U/L (13-39) 01/24/17 04:30 ALT 17 U/L (7-52) 01/24/17 04:30 Alkaline Phosphatase 38 U/L (34-104) 01/24/17 04:30 Creatine Kinase 52 U/L (30-223) 01/06/17 10:50 B-Natriuretic Peptide 189.0 pg/mL (5.0-100.0) H 01/18/17 05:37 Total Protein 4.2 gm/dL (6.0-8.3) L 01/24/17 04:30 Albumin 2.5 gm/dL (4.2-5.5) L 01/24/17 04:30 Globulin 1.7 gm/dL 01/24/17 04:30 Albumin/Globulin Ratio 1.5 (1.0-1.8) 01/24/17 04:30 Triglycerides 343 mg/dL (<150) H 01/11/17 09:15 Cholesterol 163 mg/dL (<200) 01/11/17 09:15 LDL Cholesterol Direct 82 mg/dL (75-193) 01/11/17 09:15 HDL Cholesterol 46 mg/dL (23-92) 01/11/17 09:15 TSH 0.39 uIU/ml (0.34-5.60) 01/06/17 11:59 PTH Intact 31 pg/mL (15-65) 01/06/17 12:09 Urine Source RAE PORT 01/15/17 14:00 Urine Color YELLOW 01/15/17 14:00 Urine Clarity SLIGHT CLOUDY (CLEAR) 01/15/17 14:00 Urine pH 6.0 (4.6 - 8.0) 01/15/17 14:00 Ur Specific [place] 1.020 (1.005-1.030) 01/15/17 14:00 Urine Protein NEGATIVE mg/dL (NEGATIVE) 01/15/17 14:00 Urine Glucose (UA) >=1000 mg/dL (NEGATIVE) H 01/15/17 14:00 Urine Ketones NEGATIVE mg/dL (NEGATIVE) 01/15/17 14:00 Urine Blood MODERATE (NEGATIVE) H 01/15/17 14:00 Urine Nitrate NEGATIVE (NEGATIVE) 01/15/17 14:00 Urine Bilirubin NEGATIVE (NEGATIVE) 01/15/17 14:00 Urine Urobilinogen 0.2 E.U./dL (0.2 - 1.0) 01/15/17 14:00 Ur Leukocyte Esterase NEGATIVE (NEGATIVE) 01/15/17 14:00 Urine RBC 10-25 /hpf (0-5) H 01/15/17 14:00 Urine WBC 2-5 /hpf (0-5) H 01/15/17 14:00 Ur Epithelial Cells FEW /lpf (FEW) 01/15/17 14:00 Amorphous Sediment MODERATE URATES (NONE SEEN) 01/11/17 16:00 Urine Bacteria FEW /hpf (NONE SEEN) 01/15/17 14:00 Fine Granular Casts 0-2 /lpf (NONE SEEN) H 01/11/17 16:00 Urine Mucus FEW /lpf (FEW) 01/15/17 14:00 Urine Yeast FEW /hpf (NONE SEEN) H 01/11/17 16:00 Gentamicin Peak 5.3 ug/ml (4.0-8.0) L 01/20/17 16:38 Gentamicin Trough 1.3 ug/ml (0.2-2.0) 01/21/17 02:13 Vancomycin Trough 7.3 ug/mL (10-20) L 01/14/17 08:05 Blood Type O POSITIVE 01/23/17 05:40 Antibody Screen NEGATIVE 01/23/17 05:40 - Physical Exam Vitals and I&O: Vital Signs Temp 98 F 01/24/17 08:00 Pulse 94 01/24/17 12:10 Resp 21 01/24/17 12:00 BP 101/65 01/24/17 12:00 Pulse Ox 97 01/24/17 12:10 Intake & Output 01/23/17 01/24/17 01/24/17 18:59 06:59 18:59 Intake Total 1106 100 Output Total 2230 640 200 Balance -1124 -540 -200 Weight (lbs) 74.871 kg 68.946 kg 53.977 kg Intake: Intake, IV Amount 1106 100 D5-0.9NS w/KCL 20mEq 1, 1000 000 ml @ 50 mls/hr IV . Q20H [facility] Rx#:[id number] Gentamicin 240 mg In 106 Sodium Chloride 0.9% 100 ml @ 100 mls/hr IV Q24H [facility] Rx#:[id number] Levetiracetam 500mg/100mL 100 500 mg In 100 ml @ 400 mls/hr IV Q12HR@0900,2100 [facility] Rx#:[id number] Output: Drainage 380 160 200 Right Lower Abdomen 380 160 200 Urine 1850 350 Stool 0 Other 130 Other: # Bowel Movements 1 0 Stool Characteristics Liquid Brown Active Medications: Current Medications Acetaminophen (Tylenol 650mg Supp) 650 mg RC Q4H PRN PRN Reason: Fever > 101 Stop: 03/10/17 13:04 Last Admin: 01/12/17 03:37 Dose: 650 mg Albuterol/Ipratropium (Duoneb Neb) 3 ml HHN Q4HRT [facility] Stop: 03/11/17 14:59 Last Admin: 01/24/17 12:10 Dose: 3 ml Albuterol/Ipratropium (Duoneb Neb) 3 ml HHN Q2HRT PRN PRN Reason: Wheezing Stop: 03/11/17 13:46 Artificial Tears (Artificial Tears Ophth Soln) 1 drop EACH EYE BID [facility] Stop: 03/08/17 08:59 Last Admin: 01/23/17 17:27 Dose: 1 drop Ascorbic Acid (Vitamin C) 500 mg PO DAILY [facility] Stop: 03/08/17 08:59 Last Admin: 01/24/17 10:01 Dose: Not Given Aspirin (Aspirin Chewable) 81 mg PO DAILY [facility] Stop: 03/13/17 08:59 Last Admin: 01/24/17 10:01 Dose: Not Given Atorvastatin Calcium (Lipitor) 20 mg PO DAILY [facility] PRN Reason: Protocol Stop: 03/12/17 16:29 Last Admin: 01/24/17 10:01 Dose: Not Given Atropine Sulfate (Atropine Syringe) 1 mg IVP Q4HR PRN PRN Reason: HR BELOW 40 Stop: 03/09/17 08:32 Last Admin: 01/09/17 01:00 Dose: 1 mg Bisacodyl (Dulcolax 10 Mg Supp) 10 mg RC HS [facility] Stop: 03/14/17 20:59 Last Admin: 01/23/17 21:36 Dose: Not Given Calcium/Vitamin D (Oscal W/Vitamin D) 1 tab PO DAILY [facility] Stop: 03/08/17 08:59 Last Admin: 01/24/17 10:02 Dose: Not Given Chlorhexidine Gluconate (Peridex) 15 ml MM 0800,2000 [facility] Stop: 03/24/17 19:59 Last Admin: 01/24/17 09:55 Dose: 15 ml Cyanocobalamin (Vitamin B12) 500 mcg PO DAILY [facility] Stop: 03/08/17 08:59 Last Admin: 01/24/17 12:32 Dose: Not Given Diltiazem HCl (Cardizem) 20 mg IVP Q4HR PRN PRN Reason: FOR HR>130 Stop: 03/13/17 03:53 Last Admin: 01/12/17 20:50 Dose: 20 mg Docusate Sodium (Colace) 100 mg PO DAILY [facility] Stop: 03/08/17 08:59 Last Admin: 01/23/17 09:39 Dose: Not Given Levetiracetam (Keppra Pb) 500 mg in 100 mls @ 400 mls/hr IV Q12HR@0900,2100 [facility] Stop: 03/13/17 10:29 Last Admin: 01/24/17 09:39 Dose: 400 mls/hr Potassium Chloride/Dextrose/Sod Cl (D5-0.9ns W/Kcl 20meq) 1,000 mls @ 50 mls/ hr IV .Q20H [facility] Stop: 03/20/17 08:44 Last Admin: 01/23/17 13:00 Dose: 50 mls/hr Gentamicin Sulfate 240 mg/ (Sodium Chloride) 106 mls @ 100 mls/hr IV Q24H [facility] Stop: 03/23/17 13:59 Last Infusion: 01/23/17 15:05 Dose: Infused Norepinephrine Bitartrate 4 mg (/ Dextrose) 254 mls @ 11.43 mls/hr IV TITR PRN ; Protocol; 3 MCG/MIN PRN Reason: BP MAINTENANCE (PER PROTOCOL) Stop: 03/25/17 00:15 Last Admin: 01/24/17 02:21 Dose: 3 mcg/min, 11.43 mls/hr Insulin Aspart (Novolog Insulin Sliding Scale) 2 - 12 units SUBQ ACHS [facility] PRN Reason: Protocol Stop: 03/16/17 20:59 Last Admin: 01/24/17 12:46 Dose: Not Given Lorazepam (Ativan) 1 mg IVP Q4HR PRN; Protocol PRN Reason: Seizure Stop: 03/15/17 09:07 Last Admin: 01/23/17 15:05 Dose: 1 mg Methylprednisolone Sodium Succinate (Solu-Medrol) 20 mg IVP Q12HR [facility] Stop: 03/19/17 15:43 Last Admin: 01/24/17 09:40 Dose: 20 mg Mineral Oil (Fleet Mineral Oil) 135 ml RC DAILY PRN PRN Reason: CONSTIPATION Stop: 03/13/17 12:59 Last Admin: 01/14/17 10:49 Dose: 135 ml Mineral Oil (Mineral Oil 30 Ml) 30 ml NG Q6HR [facility] Stop: 03/15/17 11:59 Last Admin: 01/24/17 06:00 Dose: Not Given Miscellaneous (Vte Chemical Prophylaxis Screen/ Admission) 1 ea PRN PRN PRN Reason: PROTOCOL Stop: 03/08/17 11:10 Miscellaneous (Probiotic Screen) 1 ea PRN PRN PRN Reason: PROTOCOL Stop: 03/13/17 13:54 Miscellaneous (Gentamicin Iv Per Pharmacy) 1 ea PRN PRN PRN Reason: PROTOCOL Stop: 03/19/17 08:25 Morphine Sulfate (Morphine) 2 mg IM Q4HR PRN PRN Reason: Pain (Moderate) Stop: 03/24/17 17:05 Ondansetron HCl (Zofran) 4 mg IV UD PRN PRN Reason: Nausea / Vomiting Stop: 03/24/17 11:30 Polyethylene Glycol (Miralax) 17 gm PO BID [facility] Stop: 03/14/17 16:59 Last Admin: 01/23/17 17:27 Dose: Not Given Potassium Chloride (Klor-Con) 20 meq PO DAILY [facility] Stop: 03/08/17 08:59 Last Admin: 01/23/17 09:43 Dose: Not Given General: Alert, No acute distress HEENT: Atraumatic, PERRLA, EOMI Neck: Supple Cardiovascular: Regular rate, Normal S1, Normal S2 Lungs: Other (wheezing,) Abdomen: Bowel sounds, Distended, Other (non tender, no guarding, no rebound) Extremities: no Clubbing, no Cyanosis, no Edema - Procedures Procedures: Procedures Procedure Code Date BYPASS ILEUM TO CUTANEOUS, OPEN APPROACH [id number] 01/06/17 REMOVAL OF COLON 19805 01/06/17 REMOVAL OF GALLBLADDER 23833 01/06/17 RESECTION OF GALLBLADDER, OPEN APPROACH [id number] 01/06/17 RESECTION OF LARGE INTESTINE, OPEN APPROACH [id number] 01/06/17 Assessment/Plan - Problem List Patient Problems: All Active Problems Constipation (Acute) K59.00 Dementia (Acute) F03.90 Facial twitching (Acute) G51.4 Hypocalcemia (Acute) E83.51 Hypokalemia (Acute) E87.6 Hypomagnesemia (Acute) E83.42 Hypophosphatemia (Acute) E83.39 Ileus (Acute) K56.7 Leukocytosis (Acute) D72.829 Multiple sclerosis (Acute) G35 Seizure disorder (Acute) G40.909 Sinus bradycardia (Acute) R00.1 - Assessment Assessment: 76 YO MALE WITH CONSTIPATION BARIUM SEEMS TO SUGGEST A DEGREE OF OBSTRUCTION DUE TO TOXIC [place] THEREFORE HAD TOTAL COLECTOMY AND DIVERTING ILEOSTOMY MRCP SHOWED NO DILATATION OF THE CBD BUT THERE WAS A GALLSTONE NOW S/P CAROLEE LFTS ARE NORMAL ERCP DEFERRED FOR LACK OF SYMPTOMS, NO BIOCHEMICAL EVIDENCE OF CHOLESTASIS, AND PT'S COMORBIDITIES FAMILY STATES PT DID NOT WANT PEG 1.CONT POST OP CARE 2.WILL SEE NEEDED; CALL IF QUESTIONS
[2017-01-24] MEDS: Gentamicin 240 MG in Sodium Chloride 0.9% 100 ML IV SCH (14:16)
[2017-01-24] MEDS: D5-0.9NS w/KCL 20mEq 1,000 ML IV SCH (14:23)
[2017-01-24] MEDS ORDERED: Albuterol/Ipratropium Neb 3 ML AERS HHN SCH (15:00)
--- NOTE | 2017-01-24 16:25 | General Progress Note ---
Subjective - Review of Systems Service Date: 01/24/17 Events since last encounter: LABS OK AFUA DRAINAGE MODERATE Objective - Results Result Diagrams: 01/24/17 04:30 01/24/17 04:30 Recent Labs: Laboratory Last Values WBC 18.9 Th/cmm (4.8-10.8) H 01/24/17 04:30 RBC 3.37 Mil/cmm (3.80-5.80) L 01/24/17 04:30 Hgb 10.9 gm/dL (12-16) L 01/24/17 04:30 Hct 32.4 % (41.0-60) L D 01/24/17 04:30 MCV 96.2 fl (80-99) 01/24/17 04:30 MCH 32.5 pg (27.0-31.0) H 01/24/17 04:30 MCHC Differential 33.8 pg (28.0-36.0) 01/24/17 04:30 RDW 13.8 % (11.5-20.0) 01/24/17 04:30 Plt Count 196 Th/cmm (150-400) 01/24/17 04:30 MPV 8.2 fl 01/24/17 04:30 Neutrophils % PATROL LADY 01/24/17 04:30 Band Neutrophils % 8 % (0-10) 01/24/17 04:30 Lymphocytes % PATROL LADY 01/24/17 04:30 Monocytes % PATROL LADY 01/24/17 04:30 Eosinophils % PATROL LADY 01/18/17 05:37 Basophils % PATROL LADY 01/18/17 05:37 Neutrophils (Manual) 84 % (40-80) H 01/24/17 04:30 Lymphocytes 6 % (20-50) L 01/24/17 04:30 Monocytes 2 % (2-10) 01/24/17 04:30 Eosinophils 1 % (0-5) 01/20/17 05:44 Basophils 0 % (0-3) 01/19/17 10:00 Platelet Estimate ADEQUATE (NORMAL) 01/19/17 10:00 Platelet Morphology NORMAL (NORMAL) 01/19/17 10:00 Anisocytosis 1+ 01/06/17 12:32 RBC Morph Micro Appear NORMAL (NORMAL) 01/19/17 10:00 PT 11.9 SECONDS (9.5-11.5) H 01/23/17 05:40 INR 1.13 (0.5-1.4) 01/23/17 05:40 PTT (Actin FS) 24.1 SECONDS (26.0-38.0) L 01/23/17 05:40 Sodium 137 mEq/L (136-145) 01/24/17 04:30 Potassium 3.9 mEq/L (3.5-5.1) 01/24/17 04:30 Chloride 109 mEq/L (98-107) H 01/24/17 04:30 Carbon Dioxide 24.0 mEq/L (21.0-31.0) 01/24/17 04:30 Anion Gap 7.9 (7.0-16.0) 01/24/17 04:30 BUN 12 mg/dL (7-25) 01/24/17 04:30 Creatinine 0.6 mg/dL (0.7-1.3) L 01/24/17 04:30 Est GFR ( Amer) TNP 01/24/17 04:30 Est GFR (Non-Af Amer) TNP 01/24/17 04:30 BUN/Creatinine Ratio 20.0 01/24/17 04:30 Glucose 163 mg/dL (70-105) H 01/24/17 04:30 POC Glucose 112 MG/DL (70 - 105) H 01/24/17 12:42 Hemoglobin A1c % 5.7 % (4.0-6.0) 01/14/17 09:07 Whole Bld Lactic Acid 0.95 mmol/L (0.60-1.99) 01/06/17 10:53 Calcium 7.5 mg/dL (8.6-10.3) L 01/24/17 04:30 Phosphorus 2.2 mg/dL (2.5-5.0) L 01/16/17 05:00 Magnesium 2.3 mg/dL (1.9-2.7) 01/15/17 04:50 Total Bilirubin 1.1 mg/dL (0.3-1.0) H 01/24/17 04:30 AST 14 U/L (13-39) 01/24/17 04:30 ALT 17 U/L (7-52) 01/24/17 04:30 Alkaline Phosphatase 38 U/L (34-104) 01/24/17 04:30 Creatine Kinase 52 U/L (30-223) 01/06/17 10:50 B-Natriuretic Peptide 189.0 pg/mL (5.0-100.0) H 01/18/17 05:37 Total Protein 4.2 gm/dL (6.0-8.3) L 01/24/17 04:30 Albumin 2.5 gm/dL (4.2-5.5) L 01/24/17 04:30 Globulin 1.7 gm/dL 01/24/17 04:30 Albumin/Globulin Ratio 1.5 (1.0-1.8) 01/24/17 04:30 Triglycerides 343 mg/dL (<150) H 01/11/17 09:15 Cholesterol 163 mg/dL (<200) 01/11/17 09:15 LDL Cholesterol Direct 82 mg/dL (75-193) 01/11/17 09:15 HDL Cholesterol 46 mg/dL (23-92) 01/11/17 09:15 TSH 0.39 uIU/ml (0.34-5.60) 01/06/17 11:59 PTH Intact 31 pg/mL (15-65) 01/06/17 12:09 Urine Source RAE PORT 01/15/17 14:00 Urine Color YELLOW 01/15/17 14:00 Urine Clarity SLIGHT CLOUDY (CLEAR) 01/15/17 14:00 Urine pH 6.0 (4.6 - 8.0) 01/15/17 14:00 Ur Specific [place] 1.020 (1.005-1.030) 01/15/17 14:00 Urine Protein NEGATIVE mg/dL (NEGATIVE) 01/15/17 14:00 Urine Glucose (UA) >=1000 mg/dL (NEGATIVE) H 01/15/17 14:00 Urine Ketones NEGATIVE mg/dL (NEGATIVE) 01/15/17 14:00 Urine Blood MODERATE (NEGATIVE) H 01/15/17 14:00 Urine Nitrate NEGATIVE (NEGATIVE) 01/15/17 14:00 Urine Bilirubin NEGATIVE (NEGATIVE) 01/15/17 14:00 Urine Urobilinogen 0.2 E.U./dL (0.2 - 1.0) 01/15/17 14:00 Ur Leukocyte Esterase NEGATIVE (NEGATIVE) 01/15/17 14:00 Urine RBC 10-25 /hpf (0-5) H 01/15/17 14:00 Urine WBC 2-5 /hpf (0-5) H 01/15/17 14:00 Ur Epithelial Cells FEW /lpf (FEW) 01/15/17 14:00 Amorphous Sediment MODERATE URATES (NONE SEEN) 01/11/17 16:00 Urine Bacteria FEW /hpf (NONE SEEN) 01/15/17 14:00 Fine Granular Casts 0-2 /lpf (NONE SEEN) H 01/11/17 16:00 Urine Mucus FEW /lpf (FEW) 01/15/17 14:00 Urine Yeast FEW /hpf (NONE SEEN) H 01/11/17 16:00 Gentamicin Peak 5.3 ug/ml (4.0-8.0) L 01/20/17 16:38 Gentamicin Trough 0.9 ug/ml (0.2-2.0) 01/24/17 12:55 Vancomycin Trough 7.3 ug/mL (10-20) L 01/14/17 08:05 Blood Type O POSITIVE 01/23/17 05:40 Antibody Screen NEGATIVE 01/23/17 05:40 - Physical Exam Vitals and I&O: Vital Signs Temp 98 F 01/24/17 08:00 Pulse 97 01/24/17 15:48 Resp 21 01/24/17 14:00 BP 112/70 01/24/17 14:45 Pulse Ox 99 01/24/17 15:48 Intake & Output 01/23/17 01/24/17 01/24/17 18:59 06:59 18:59 Intake Total 5183 196 4332 Output Total 2230 640 200 Balance -1124 -540 900 Weight (lbs) 74.871 kg 68.946 kg 53.977 kg Intake: Intake, IV Amount 0807 698 1289 D5-0.9NS w/KCL 20mEq 1, 1000 1000 000 ml @ 50 mls/hr IV . Q20H [facility] Rx#:[id number] Gentamicin 240 mg In 106 Sodium Chloride 0.9% 100 ml @ 100 mls/hr IV Q24H [facility] Rx#:[id number] Levetiracetam 500mg/100mL 100 100 500 mg In 100 ml @ 400 mls/hr IV Q12HR@0900,2100 [facility] Rx#:[id number] Output: Drainage 380 160 200 Right Lower Abdomen 380 160 200 Urine 1850 350 Stool 0 Other 130 Other: # Bowel Movements 1 0 Stool Characteristics Liquid Brown Active Medications: Current Medications Acetaminophen (Tylenol 650mg Supp) 650 mg RC Q4H PRN PRN Reason: Fever > 101 Stop: 03/10/17 13:04 Last Admin: 01/12/17 03:37 Dose: 650 mg Albuterol/Ipratropium (Duoneb Neb) 3 ml HHN Q4HRT [facility] Stop: 03/11/17 14:59 Last Admin: 01/24/17 15:45 Dose: 3 ml Albuterol/Ipratropium (Duoneb Neb) 3 ml HHN Q2HRT PRN PRN Reason: Wheezing Stop: 03/11/17 13:46 Albuterol/Ipratropium (Duoneb Neb) 3 ml HHN [id number] [facility] Stop: 03/25/17 14:59 Artificial Tears (Artificial Tears Ophth Soln) 1 drop EACH EYE BID [facility] Stop: 03/08/17 08:59 Last Admin: 01/23/17 17:27 Dose: 1 drop Ascorbic Acid (Vitamin C) 500 mg PO DAILY [facility] Stop: 03/08/17 08:59 Last Admin: 01/24/17 10:01 Dose: Not Given Aspirin (Aspirin Chewable) 81 mg PO DAILY [facility] Stop: 03/13/17 08:59 Last Admin: 01/24/17 10:01 Dose: Not Given Atorvastatin Calcium (Lipitor) 20 mg PO DAILY [facility] PRN Reason: Protocol Stop: 03/12/17 16:29 Last Admin: 01/24/17 10:01 Dose: Not Given Atropine Sulfate (Atropine Syringe) 1 mg IVP Q4HR PRN PRN Reason: HR BELOW 40 Stop: 03/09/17 08:32 Last Admin: 01/09/17 01:00 Dose: 1 mg Bisacodyl (Dulcolax 10 Mg Supp) 10 mg RC HS [facility] Stop: 03/14/17 20:59 Last Admin: 01/23/17 21:36 Dose: Not Given Budesonide (Pulmicort) 0.5 mg HHN BIDRT [facility] Stop: 03/25/17 18:59 Calcium/Vitamin D (Oscal W/Vitamin D) 1 tab PO DAILY [facility] Stop: 03/08/17 08:59 Last Admin: 01/24/17 10:02 Dose: Not Given Chlorhexidine Gluconate (Peridex) 15 ml MM 0800,2000 [facility] Stop: 03/24/17 19:59 Last Admin: 01/24/17 09:55 Dose: 15 ml Cyanocobalamin (Vitamin B12) 500 mcg PO DAILY [facility] Stop: 03/08/17 08:59 Last Admin: 01/24/17 12:32 Dose: Not Given Diltiazem HCl (Cardizem) 20 mg IVP Q4HR PRN PRN Reason: FOR HR>130 Stop: 03/13/17 03:53 Last Admin: 01/12/17 20:50 Dose: 20 mg Docusate Sodium (Colace) 100 mg PO DAILY [facility] Stop: 03/08/17 08:59 Last Admin: 01/23/17 09:39 Dose: Not Given Levetiracetam (Keppra Pb) 500 mg in 100 mls @ 400 mls/hr IV Q12HR@0900,2100 [facility] Stop: 03/13/17 10:29 Last Infusion: 01/24/17 14:25 Dose: Infused Potassium Chloride/Dextrose/Sod Cl (D5-0.9ns W/Kcl 20meq) 1,000 mls @ 50 mls/ hr IV .Q20H [facility] Stop: 03/20/17 08:44 Last Admin: 01/24/17 14:23 Dose: 50 mls/hr Gentamicin Sulfate 240 mg/ (Sodium Chloride) 106 mls @ 100 mls/hr IV Q24H [facility] Stop: 03/23/17 13:59 Last Admin: 01/24/17 14:16 Dose: 100 mls/hr Norepinephrine Bitartrate 4 mg (/ Dextrose) 254 mls @ 11.43 mls/hr IV TITR PRN ; Protocol; 3 MCG/MIN PRN Reason: BP MAINTENANCE (PER PROTOCOL) Stop: 03/25/17 00:15 Last Admin: 01/24/17 02:21 Dose: 3 mcg/min, 11.43 mls/hr Insulin Aspart (Novolog Insulin Sliding Scale) 2 - 12 units SUBQ ACHS [facility] PRN Reason: Protocol Stop: 03/16/17 20:59 Last Admin: 01/24/17 12:46 Dose: Not Given Lorazepam (Ativan) 1 mg IVP Q4HR PRN; Protocol PRN Reason: Seizure Stop: 03/15/17 09:07 Last Admin: 01/23/17 15:05 Dose: 1 mg Methylprednisolone Sodium Succinate (Solu-Medrol) 20 mg IVP Q12HR [facility] Stop: 03/19/17 15:43 Last Admin: 01/24/17 09:40 Dose: 20 mg Mineral Oil (Fleet Mineral Oil) 135 ml RC DAILY PRN PRN Reason: CONSTIPATION Stop: 03/13/17 12:59 Last Admin: 01/14/17 10:49 Dose: 135 ml Mineral Oil (Mineral Oil 30 Ml) 30 ml NG Q6HR LIZY Stop: 03/15/17 11:59 Last Admin: 01/24/17 06:00 Dose: Not Given Miscellaneous (Vte Chemical Prophylaxis Screen/ Admission) 1 ea PRN PRN PRN Reason: PROTOCOL Stop: 03/08/17 11:10 Miscellaneous (Probiotic Screen) 1 ea PRN PRN PRN Reason: PROTOCOL Stop: 03/13/17 13:54 Miscellaneous (Gentamicin Iv Per Pharmacy) 1 ea PRN PRN PRN Reason: PROTOCOL Stop: 03/19/17 08:25 Morphine Sulfate (Morphine) 2 mg IM Q4HR PRN PRN Reason: Pain (Moderate) Stop: 03/24/17 17:05 Ondansetron HCl (Zofran) 4 mg IV UD PRN PRN Reason: Nausea / Vomiting Stop: 03/24/17 11:30 Polyethylene Glycol (Miralax) 17 gm PO BID LIZY Stop: 03/14/17 16:59 Last Admin: 01/23/17 17:27 Dose: Not Given Potassium Chloride (Klor-Con) 20 meq PO DAILY LIZY Stop: 03/08/17 08:59 Last Admin: 01/23/17 09:43 Dose: Not Given General: Alert, No acute distress HEENT: Atraumatic, PERRLA, EOMI Neck: Supple Cardiovascular: Regular rate, Normal S1, Normal S2 Lungs: Other (wheezing,) Abdomen: Bowel sounds, Distended, Other (non tender, no guarding, no rebound) Extremities: no Clubbing, no Cyanosis, no Edema - Procedures Procedures: Procedures Procedure Code Date BYPASS ILEUM TO CUTANEOUS, OPEN APPROACH [id number] 01/06/17 REMOVAL OF COLON 55745 01/06/17 REMOVAL OF GALLBLADDER 04061 01/06/17 RESECTION OF GALLBLADDER, OPEN APPROACH 3BG84PH 01/06/17 RESECTION OF LARGE INTESTINE, OPEN APPROACH [id number] 01/06/17 Assessment/Plan - Problem List Patient Problems: All Active Problems Constipation (Acute) K59.00 Dementia (Acute) F03.90 Facial twitching (Acute) G51.4 Hypocalcemia (Acute) E83.51 Hypokalemia (Acute) E87.6 Hypomagnesemia (Acute) E83.42 Hypophosphatemia (Acute) E83.39 Ileus (Acute) K56.7 Leukocytosis (Acute) D72.829 Multiple sclerosis (Acute) G35 Seizure disorder (Acute) G40.909 Sinus bradycardia (Acute) R00.1 Nutritional Asmnt/Malnutr-PDOC - Dietary Evaluation Malnutrition Findings (Please click <Entered> for more info): Nutritional Asmnt/Malnutrition Start: 01/08/17 12: 55 Text: Status: Complete Freq: Document 01/08/17 12:56 GSUN (Rec: 01/08/17 13:16 [facility] Nutritional Asmnt/Malnutrition Patient General Information Nutritional Screening Consult Diagnosis ALOC, acute MS exacerbation Pertinent Medical Hx/Surgical Hx Dementia, multiple sclerosis, constipation Subjective Information 76 year old male from SNF. RD consult for laura Huntley. Per RN notes, facial twitching on adm, currently NPO with swallow eval pending. Pt was awake during visit, followed RD with eyes, did not provide any information. Mild wasting to chest noted, loose skin to arms. Current Diet Order/ Nutrition Support NPO Pertinent Medications Vitamin C, Oscal W/Vitamin D, Vitamin B12, D5-0.45ns, Dulcolax, Colace Pertinent Labs 01/08: reviewed. Glucose 148H Nutritional Hx/Data Height 1.85 m Height (Calculated Centimeters) 185.4 Current Weight (lbs) 69.49 kg Weight (Calculated Kilograms) 69.5 Weight (Calculated Grams) 27376.4 [place] Body Weight 184 Weight Status Approriate GI Symptoms Usual diet at home [place] [facility]: pureed, large portion lunch and dinner, 4oz house supplement Skin Integrity/Comment: Audi 12. Pressure area r foot and upper back, abrasion l knee and r leg Estimated Nutritional Goals BEE in Kcals: Using Current wt Calories/Kcals/Kg IBW 184lb/83.6kg with consideration skin integrity and BMI Kcals Calculated 2089-250kcal (25-30kcal/kg) Protein: Using Current wt Protein Calculated 84-109g (1-1.3g/kg) Fluid: ml 2089-2508ml (1ml/kcal) Nutritional Problem 2. Problem Problem Increased prot needs related to Etiology skin integrity aeb Signs/Symptoms: assessment director: pressure area to right foot and upper back, abrasion ro left knee and right lower leg 1. 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 Recommend regular diet, diet texture per swallow eval (pending). SNF order pureed. Expected Outcomes/Goals Expected Outcomes/Goals 1. PO intake to meet at least 75% of estimated nutritional needs.
--- NOTE | 2017-01-24 18:07 | Infectious Disease Prog Note ---
Infectious Disease Subjective - Review of Systems Service Date: 01/24/17 Subjective: There is no new change, there is no fever. Total colectomy was performed by Dr Schwartz yesterday. Infectious Disease Objective - Results Result Diagrams: 01/24/17 04:30 01/24/17 04:30 Recent Labs: Laboratory Last Values WBC 18.9 Th/cmm (4.8-10.8) H 01/24/17 04:30 RBC 3.37 Mil/cmm (3.80-5.80) L 01/24/17 04:30 Hgb 10.9 gm/dL (12-16) L 01/24/17 04:30 Hct 32.4 % (41.0-60) L D 01/24/17 04:30 MCV 96.2 fl (80-99) 01/24/17 04:30 MCH 32.5 pg (27.0-31.0) H 01/24/17 04:30 MCHC Differential 33.8 pg (28.0-36.0) 01/24/17 04:30 RDW 13.8 % (11.5-20.0) 01/24/17 04:30 Plt Count 196 Th/cmm (150-400) 01/24/17 04:30 MPV 8.2 fl 01/24/17 04:30 Neutrophils % HAND BOOKED FOLDER [employer] STITCHER 01/24/17 04:30 Band Neutrophils % 8 % (0-10) 01/24/17 04:30 Lymphocytes % HAND BOOKED F[employer]DER [employer] STITCHER 01/24/17 04:30 Monocytes % HAND BOOKED [employer]DER [employer] STITCHER 01/24/17 04:30 Eosinophils % HAND B[employer]ED [employer]DER [employer] STITCHER 01/18/17 05:37 Basophils % HAND BOOKED [employer]DER [employer] STITCHER 01/18/17 05:37 Neutrophils (Manual) 84 % (40-80) H 01/24/17 04:30 Lymphocytes 6 % (20-50) L 01/24/17 04:30 Monocytes 2 % (2-10) 01/24/17 04:30 Eosinophils 1 % (0-5) 01/20/17 05:44 Basophils 0 % (0-3) 01/19/17 10:00 Platelet Estimate ADEQUATE (NORMAL) 01/19/17 10:00 Platelet Morphology NORMAL (NORMAL) 01/19/17 10:00 Anisocytosis 1+ 01/06/17 12:32 RBC Morph Micro Appear NORMAL (NORMAL) 01/19/17 10:00 PT 11.9 SECONDS (9.5-11.5) H 01/23/17 05:40 INR 1.13 (0.5-1.4) 01/23/17 05:40 PTT (Actin FS) 24.1 SECONDS (26.0-38.0) L 01/23/17 05:40 Sodium 137 mEq/L (136-145) 01/24/17 04:30 Potassium 3.9 mEq/L (3.5-5.1) 01/24/17 04:30 Chloride 109 mEq/L (98-107) H 01/24/17 04:30 Carbon Dioxide 24.0 mEq/L (21.0-31.0) 01/24/17 04:30 Anion Gap 7.9 (7.0-16.0) 01/24/17 04:30 BUN 12 mg/dL (7-25) 01/24/17 04:30 Creatinine 0.6 mg/dL (0.7-1.3) L 01/24/17 04:30 Est GFR ( Amer) TNP 01/24/17 04:30 Est GFR (Non-Af Amer) TNP 01/24/17 04:30 BUN/Creatinine Ratio 20.0 01/24/17 04:30 Glucose 163 mg/dL (70-105) H 01/24/17 04:30 POC Glucose 112 MG/DL (70 - 105) H 01/24/17 12:42 Hemoglobin A1c % 5.7 % (4.0-6.0) 01/14/17 09:07 Whole Bld Lactic Acid 0.95 mmol/L (0.60-1.99) 01/06/17 10:53 Calcium 7.5 mg/dL (8.6-10.3) L 01/24/17 04:30 Phosphorus 2.2 mg/dL (2.5-5.0) L 01/16/17 05:00 Magnesium 2.3 mg/dL (1.9-2.7) 01/15/17 04:50 Total Bilirubin 1.1 mg/dL (0.3-1.0) H 01/24/17 04:30 AST 14 U/L (13-39) 01/24/17 04:30 ALT 17 U/L (7-52) 01/24/17 04:30 Alkaline Phosphatase 38 U/L (34-104) 01/24/17 04:30 Creatine Kinase 52 U/L (30-223) 01/06/17 10:50 B-Natriuretic Peptide 189.0 pg/mL (5.0-100.0) H 01/18/17 05:37 Total Protein 4.2 gm/dL (6.0-8.3) L 01/24/17 04:30 Albumin 2.5 gm/dL (4.2-5.5) L 01/24/17 04:30 Globulin 1.7 gm/dL 01/24/17 04:30 Albumin/Globulin Ratio 1.5 (1.0-1.8) 01/24/17 04:30 Triglycerides 343 mg/dL (<150) H 01/11/17 09:15 Cholesterol 163 mg/dL (<200) 01/11/17 09:15 LDL Cholesterol Direct 82 mg/dL (75-193) 01/11/17 09:15 HDL Cholesterol 46 mg/dL (23-92) 01/11/17 09:15 TSH 0.39 uIU/ml (0.34-5.60) 01/06/17 11:59 PTH Intact 31 pg/mL (15-65) 01/06/17 12:09 Urine Source RAE PORT 01/15/17 14:00 Urine Color YELLOW 01/15/17 14:00 Urine Clarity SLIGHT CLOUDY (CLEAR) 01/15/17 14:00 Urine pH 6.0 (4.6 - 8.0) 01/15/17 14:00 Ur Specific [place] 1.020 (1.005-1.030) 01/15/17 14:00 Urine Protein NEGATIVE mg/dL (NEGATIVE) 01/15/17 14:00 Urine Glucose (UA) >=1000 mg/dL (NEGATIVE) H 01/15/17 14:00 Urine Ketones NEGATIVE mg/dL (NEGATIVE) 01/15/17 14:00 Urine Blood MODERATE (NEGATIVE) H 01/15/17 14:00 Urine Nitrate NEGATIVE (NEGATIVE) 01/15/17 14:00 Urine Bilirubin NEGATIVE (NEGATIVE) 01/15/17 14:00 Urine Urobilinogen 0.2 E.U./dL (0.2 - 1.0) 01/15/17 14:00 Ur Leukocyte Esterase NEGATIVE (NEGATIVE) 01/15/17 14:00 Urine RBC 10-25 /hpf (0-5) H 01/15/17 14:00 Urine WBC 2-5 /hpf (0-5) H 01/15/17 14:00 Ur Epithelial Cells FEW /lpf (FEW) 01/15/17 14:00 Amorphous Sediment MODERATE URATES (NONE SEEN) 01/11/17 16:00 Urine Bacteria FEW /hpf (NONE SEEN) 01/15/17 14:00 Fine Granular Casts 0-2 /lpf (NONE SEEN) H 01/11/17 16:00 Urine Mucus FEW /lpf (FEW) 01/15/17 14:00 Urine Yeast FEW /hpf (NONE SEEN) H 01/11/17 16:00 Gentamicin Peak 5.3 ug/ml (4.0-8.0) L 01/20/17 16:38 Gentamicin Trough 0.9 ug/ml (0.2-2.0) 01/24/17 12:55 Vancomycin Trough 7.3 ug/mL (10-20) L 01/14/17 08:05 Blood Type O POSITIVE 01/23/17 05:40 Antibody Screen NEGATIVE 01/23/17 05:40 - Physical Exam Vitals and I&O: Vital Signs Temp 98 F 01/24/17 08:00 Pulse 97 01/24/17 15:48 Resp 21 01/24/17 14:00 BP 112/70 01/24/17 14:45 Pulse Ox 99 01/24/17 15:48 Intake & Output 01/23/17 01/24/17 01/24/17 18:59 06:59 18:59 Intake Total 7338 617 3647 Output Total 2230 640 200 Balance -1124 -540 900 Weight (lbs) 74.871 kg 68.946 kg 53.977 kg Intake: Intake, IV Amount 8995 079 6765 D5-0.9NS w/KCL 20mEq 1, 1000 1000 000 ml @ 50 mls/hr IV . Q20H [facility] Rx#:[id number] Gentamicin 240 mg In 106 Sodium Chloride 0.9% 100 ml @ 100 mls/hr IV Q24H [facility] Rx#:[id number] Levetiracetam 500mg/100mL 100 100 500 mg In 100 ml @ 400 mls/hr IV Q12HR@0900,2100 [facility] Rx#:[id number] Output: Drainage 380 160 200 Right Lower Abdomen 380 160 200 Urine 1850 350 Stool 0 Other 130 Other: # Bowel Movements 1 0 Stool Characteristics Liquid Brown Active Medications: Current Medications Acetaminophen (Tylenol 650mg Supp) 650 mg RC Q4H PRN PRN Reason: Fever > 101 Stop: 03/10/17 13:04 Last Admin: 01/12/17 03:37 Dose: 650 mg Albuterol/Ipratropium (Duoneb Neb) 3 ml HHN Q4HRT [facility] Stop: 03/11/17 14:59 Last Admin: 01/24/17 15:45 Dose: 3 ml Albuterol/Ipratropium (Duoneb Neb) 3 ml HHN Q2HRT PRN PRN Reason: Wheezing Stop: 03/11/17 13:46 Albuterol/Ipratropium (Duoneb Neb) 3 ml HHN [id number] [facility] Stop: 03/25/17 14:59 Artificial Tears (Artificial Tears Ophth Soln) 1 drop EACH EYE BID [facility] Stop: 03/08/17 08:59 Last Admin: 01/23/17 17:27 Dose: 1 drop Ascorbic Acid (Vitamin C) 500 mg PO DAILY [facility] Stop: 03/08/17 08:59 Last Admin: 01/24/17 10:01 Dose: Not Given Aspirin (Aspirin Chewable) 81 mg PO DAILY [facility] Stop: 03/13/17 08:59 Last Admin: 01/24/17 10:01 Dose: Not Given Atorvastatin Calcium (Lipitor) 20 mg PO DAILY [facility] PRN Reason: Protocol Stop: 03/12/17 16:29 Last Admin: 01/24/17 10:01 Dose: Not Given Atropine Sulfate (Atropine Syringe) 1 mg IVP Q4HR PRN PRN Reason: HR BELOW 40 Stop: 03/09/17 08:32 Last Admin: 01/09/17 01:00 Dose: 1 mg Bisacodyl (Dulcolax 10 Mg Supp) 10 mg RC HS [facility] Stop: 03/14/17 20:59 Last Admin: 01/23/17 21:36 Dose: Not Given Budesonide (Pulmicort) 0.5 mg HHN BIDRT [facility] Stop: 03/25/17 18:59 Calcium/Vitamin D (Oscal W/Vitamin D) 1 tab PO DAILY [facility] Stop: 03/08/17 08:59 Last Admin: 01/24/17 10:02 Dose: Not Given Chlorhexidine Gluconate (Peridex) 15 ml MM 0800,1999 [facility] Stop: 03/24/17 19:59 Last Admin: 01/24/17 09:55 Dose: 15 ml Cyanocobalamin (Vitamin B12) 500 mcg PO DAILY [facility] Stop: 03/08/17 08:59 Last Admin: 01/24/17 12:32 Dose: Not Given Diltiazem HCl (Cardizem) 20 mg IVP Q4HR PRN PRN Reason: FOR HR>130 Stop: 03/13/17 03:53 Last Admin: 01/12/17 20:50 Dose: 20 mg Docusate Sodium (Colace) 100 mg PO DAILY [facility] Stop: 03/08/17 08:59 Last Admin: 01/23/17 09:39 Dose: Not Given Levetiracetam (Keppra Pb) 500 mg in 100 mls @ 400 mls/hr IV Q12HR@0900,2100 [facility] Stop: 03/13/17 10:29 Last Infusion: 01/24/17 14:25 Dose: Infused Potassium Chloride/Dextrose/Sod Cl (D5-0.9ns W/Kcl 20meq) 1,000 mls @ 50 mls/ hr IV .Q20H [facility] Stop: 03/20/17 08:44 Last Admin: 01/24/17 14:23 Dose: 50 mls/hr Gentamicin Sulfate 240 mg/ (Sodium Chloride) 106 mls @ 100 mls/hr IV Q24H [facility] Stop: 03/23/17 13:59 Last Admin: 01/24/17 14:16 Dose: 100 mls/hr Norepinephrine Bitartrate 4 mg (/ Dextrose) 254 mls @ 11.43 mls/hr IV TITR PRN ; Protocol; 3 MCG/MIN PRN Reason: BP MAINTENANCE (PER PROTOCOL) Stop: 03/25/17 00:15 Last Admin: 01/24/17 02:21 Dose: 3 mcg/min, 11.43 mls/hr Insulin Aspart (Novolog Insulin Sliding Scale) 2 - 12 units SUBQ ACHS [facility] PRN Reason: Protocol Stop: 03/16/17 20:59 Last Admin: 01/24/17 12:46 Dose: Not Given Lorazepam (Ativan) 1 mg IVP Q4HR PRN; Protocol PRN Reason: Seizure Stop: 03/15/17 09:07 Last Admin: 01/23/17 15:05 Dose: 1 mg Methylprednisolone Sodium Succinate (Solu-Medrol) 20 mg IVP Q12HR [facility] Stop: 03/19/17 15:43 Last Admin: 01/24/17 09:40 Dose: 20 mg Mineral Oil (Fleet Mineral Oil) 135 ml RC DAILY PRN PRN Reason: CONSTIPATION Stop: 03/13/17 12:59 Last Admin: 01/14/17 10:49 Dose: 135 ml Mineral Oil (Mineral Oil 30 Ml) 30 ml NG Q6HR [facility] Stop: 03/15/17 11:59 Last Admin: 01/24/17 06:00 Dose: Not Given Miscellaneous (Vte Chemical Prophylaxis Screen/ Admission) 1 ea PRN PRN PRN Reason: PROTOCOL Stop: 03/08/17 11:10 Miscellaneous (Probiotic Screen) 1 ea PRN PRN PRN Reason: PROTOCOL Stop: 03/13/17 13:54 Miscellaneous (Gentamicin Iv Per Pharmacy) 1 ea PRN PRN PRN Reason: PROTOCOL Stop: 03/19/17 08:25 Morphine Sulfate (Morphine) 2 mg IM Q4HR PRN PRN Reason: Pain (Moderate) Stop: 03/24/17 17:05 Ondansetron HCl (Zofran) 4 mg IV UD PRN PRN Reason: Nausea / Vomiting Stop: 03/24/17 11:30 Polyethylene Glycol (Miralax) 17 gm PO BID [facility] Stop: 03/14/17 16:59 Last Admin: 01/23/17 17:27 Dose: Not Given Potassium Chloride (Klor-Con) 20 meq PO DAILY [facility] Stop: 03/08/17 08:59 Last Admin: 01/23/17 09:43 Dose: Not Given General: no acute distress, cachectic HEENT: atraumatic, normocephalic, PERRLA, EOMI Neck: supple, no thyromegaly Cardiovascular: S1S2, regular Lungs: no clear to auscultation bilaterally, no clear to percussion Abdomen: soft, distended Extremities: no cyanosis, no clubbing Neurological: awake - Procedures Procedures: Procedures Procedure Code Date BYPASS ILEUM TO CUTANEOUS, OPEN APPROACH [id number] 01/06/17 REMOVAL OF COLON 46145 01/06/17 REMOVAL OF GALLBLADDER 99504 01/06/17 RESECTION OF GALLBLADDER, OPEN APPROACH [id number] 01/06/17 RESECTION OF LARGE INTESTINE, OPEN APPROACH [id number] 01/06/17 Infectious Disease Assmt/Plan - Problem List Patient Problems: All Active Problems Constipation (Acute) K59.00 Dementia (Acute) F03.90 Facial twitching (Acute) G51.4 Hypocalcemia (Acute) E83.51 Hypokalemia (Acute) E87.6 Hypomagnesemia (Acute) E83.42 Hypophosphatemia (Acute) E83.39 Ileus (Acute) K56.7 Leukocytosis (Acute) D72.829 Multiple sclerosis (Acute) G35 Seizure disorder (Acute) G40.909 Sinus bradycardia (Acute) R00.1 - Assessment Assessment: 1. Leukocytosis, Steroids. ileus. Less likely sepsis. 2. Urinary tract infection. treated. 3. Possible common bile duct obstruction distal end, cholelithiasis. 4. Fecal impaction. 5. Supraventricular tachycardia. 6. Multiple sclerosis. 7. Dementia. 8. constipation/ileus - Plan Plan: dc gentamicin. start zosyn. Nutritional Asmnt/Malnutr-PDOC - Dietary Evaluation Malnutrition Findings (Please click <Entered> for more info): Nutritional Asmnt/Malnutrition Start: 01/08/17 12: 55 Text: Status: Complete Freq: Document 01/08/17 12:56 GSUN (Rec: 01/08/17 13:16 [id number]) Nutritional Asmnt/Malnutrition Patient General Information Nutritional Screening Consult Diagnosis ALOC, acute MS exacerbation Pertinent Medical Hx/Surgical Hx Dementia, multiple sclerosis, constipation Subjective Information 76 year old male from SNF. RD consult for laura Huntley. Per RN notes, facial twitching on adm, currently NPO with swallow eval pending. Pt was awake during visit, followed RD with eyes, did not provide any information. Mild wasting to chest noted, loose skin to arms. Current Diet Order/ Nutrition Support NPO Pertinent Medications Vitamin C, Oscal W/Vitamin D, Vitamin B12, D5-0.45ns, Dulcolax, Colace Pertinent Labs 01/08: reviewed. Glucose 148H Nutritional Hx/Data Height 1.85 m Height (Calculated Centimeters) 185.4 Current Weight (lbs) 69.49 kg Weight (Calculated Kilograms) 69.5 Weight (Calculated Grams) 80411.4 [place] Body Weight 184 Weight Status Approriate GI Symptoms Usual diet at home [facility]: pureed, large portion lunch and dinner, 4oz house supplement Skin Integrity/Comment: Audi 12. Pressure area r foot and upper back, abrasion l knee and r leg Estimated Nutritional Goals BEE in Kcals: Using Current wt Calories/Kcals/Kg IBW 184lb/83.6kg with consideration skin integrity and BMI Kcals Calculated 2089-2508kcal (25-30kcal/kg) Protein: Using Current wt Protein Calculated 84-109g (1-1.3g/kg) Fluid: ml 0-2508ml (1ml/kcal) Nutritional Problem 2. 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 Recommend regular diet, diet texture per swallow eval (pending). SNF order pureed. Expected Outcomes/Goals Expected Outcomes/Goals 1. PO intake to meet at least 75% of estimated nutritional needs.
[2017-01-24] MEDS: Polyvinyl Alcohol Ophth Soln 15 mL Bottle EACH EYE SCH ×2 (18:31→18:33)
[2017-01-24] MEDS: Budesonide 0.5 Mg/2 mL Ud HHN SCH (19:05)
[2017-01-25] MEDS: Albuterol/Ipratropium Neb 3 ML AERS HHN SCH ×6 (02:28→23:13)
--- NOTE | 2017-01-25 03:50 | Progress Notes ---
DATE: 01/24/2017 REASON FOR CONSULTATION: Help the patient with respiratory failure. CONSULT NOTE: This patient is here for a while, had previous surgery done with colostomy, abdominal surgery appears to be a very poor historian, but apparently the patient was on the regular floor, but during the nighttime, the patient started getting more shortness of breath and respiratory failure. PROPERTY DAMAGE CLAIMS ADJUSTOR was called. Subsequently, the patient was intubated and I was asked to see this patient for further care and necessary treatment. The patient did have surgery done on 01/23/2017. The patient has been here for a while, initial reason that patient was in the hospital was basically SNF with intermittent facial twitching as well as planned to have history of multiple sclerosis, dementia and also several other issues related to the electrolyte imbalance, etc. Subsequently, the patient was convalescent post-surgery as the patient was called PROPERTY DAMAGE CLAIMS ADJUSTOR and subsequently intubated. PAST MEDICAL HISTORY: History of Alzheimer's, multiple sclerosis, also history of chronic constipation, history of electrolyte imbalance. SOCIAL HISTORY: Smoking history, nil. Alcohol history is nil. Other history is very minimal to nil. PHYSICAL EXAMINATION: GENERAL: This is an elderly looking gentleman who is on ventilator ____, but no respiratory distress, etc. VITAL SIGNS: The patient's recorded vitals: Temperature is 97, respirations about 14, blood pressure 101/68 currently saturating in midnight 90s on 30% of oxygen. HEENT: Examination of the head is essentially unremarkable. Pupils appear to be equal and reacting to light. Conjunctivae are slightly pallor. Oral cavity, limited exam, but otherwise unremarkable and oral cavity is essentially unremarkable and though very difficult to say in the view of the patient is intubated without nasogastric tube. CHEST: Shows diminished air entry with occasional rhonchi. HEART: Regular. ABDOMEN: Shows surgical scar with colostomy. EXTREMITIES: Shows no peripheral edema. LABORATORY DATA: The patient's current laboratory studies: White count is 18.9. Electrolytes are okay, slightly elevated sugar, and albumin is 2.5. ASSESSMENT: The patient has acute respiratory failure postoperatively, exact precipitating factor is not clear, probably from the pain. Pain meds, possibly contributory though very hard to get information from the patient. PLANS AND SUGGESTIONS: We will go ahead and repeat chest x-ray, check the blodd gases. Continue inhalation treatment. We will follow for next 24-48 hours if it is stable, we will go and extubate him and go from there. [facility]# [id number]
[2017-01-25] MEDS: INSULIN ASPART SLIDING SCALE 100 UNITS/ML UNIT SUBQ SCH ×4 (07:00→22:04)
[2017-01-25 07:14] LABS: HEMATOCRIT 30.5 % (41.0-60); HEMOGLOBIN 10.4 gm/dL (12-16); MEAN CELL VOLUME 94.8 fl (80-99); MEAN CORPUSCULAR HEMOGLOBIN 32.5 pg (27.0-31.0); MEAN CORPUSCULAR HGB CONC 34.3 pg (28.0-36.0); MEAN PLATELET VOLUME 7.4 fl; NEUTROPHILE ABSOLUTE 17.9 Th/cmm (1.8-8.0); PLATELET COUNT 201 Th/cmm (150-400); RED BLOOD COUNT 3.22 Mil/cmm (3.80-5.80); RED CELL DISTRIBUTION WIDTH 13.6 % (11.5-20.0)
[2017-01-25 07:21] LABS: WHITE BLOOD COUNT 20.1 Th/cmm (4.8-10.8)
[2017-01-25 07:38] LABS: ALB/GLOB RATIO 1.4 (1.0-1.8); ALKALINE PHOSPHATASE 42 U/L (34-104); ANION GAP 9.7 (7.0-16.0); BUN - UREA NITROGEN 13 mg/dL (7-25); BUN/CREATININE RATIO 21.7; CARBON DIOXIDE 24.3 mEq/L (21.0-31.0); CHLORIDE 106 mEq/L (98-107); CREATININE - SERUM 0.6 mg/dL (0.7-1.3); GLUCOSE 137 mg/dL (70-105); MAGNESIUM 1.7 mg/dL (1.9-2.7); SGOT 21 U/L (13-39); SGPT/ALT 22 U/L (7-52); SODIUM SERUM 136 mEq/L (136-145)
[2017-01-25] MEDS: Chlorhexidine Gluconate 0.12% 15mL Mouthwash MM SCH ×2 (08:00→20:12)
--- NOTE | 2017-01-25 08:02 | Diagnostic Imaging Report ---
CHEST X-RAY: AP view INDICATION: Intubation COMPARISON: Chest x-ray 01/17/2017 study was also compared to multiple previous KUBs. FINDINGS: ET tube is in place with tip 3 cm above the Aiyana. Right IJ line is seen with tip within the proximal SVC. Chronic lung changes are seen with no focal soft tissue or pleural effusions. Heart size is normal. Diffuse gaseous distended loops of bowel are noted. NG tube is seen within the stomach. IMPRESSION: Interval intubation with tip 3 cm above the Aiyana. Right IJ line seen with tip along the proximal SVC. No evidence of pneumothorax No focal consolidation identified. Diffuse gaseous distended loops of bowel. No gross free air when compared to multiple prior exams, however, if there is concern for free abdominal air, CT examination may be obtained for further assessment.
[2017-01-25] MEDS: Budesonide 0.5 Mg/2 mL Ud HHN SCH ×2 (08:04→19:16)
--- NOTE | 2017-01-25 08:22 | Diagnostic Imaging Report ---
CHEST X-RAY: AP view INDICATION: Shortness of breath COMPARISON: Chest x-ray 01/24/2017 at 1621 and multiple previous KUBs FINDINGS: ET tube is stable. NG tube is visualized with tip along the fundal portion of the stomach with elevation left hemidiaphragm. Diffuse distended loops of bowel are again noted. Left basal opacity is noted. Heart size is borderline prominent. IMPRESSION: Left basal opacity which may be due to atelectasis or developing focal infiltrate. NG tube within the fundal portion of the stomach. Diffuse distended loops of bowel. Although findings may be due to chronic generalized ileus when compared to multiple exams, free air cannot be completely excluded. Please correlate with clinical findings. Consider further assessment with CT examination of the abdomen and pelvis.
[2017-01-25] MEDS ORDERED: Metoclopramide 5 mg/mL 2mL Vial IVP PRN (08:24)
--- NOTE | 2017-01-25 08:28 | General Progress Note ---
Subjective - Review of Systems Service Date: 01/25/17 Events since last encounter: low dose Levophed urine output is good AFUA drainage minimal, leukocytosis started on Reglan Objective - Results Result Diagrams: 01/25/17 07:05 01/25/17 07:05 Recent Labs: Laboratory Last Values WBC 20.1 Th/cmm (4.8-10.8) H* 01/25/17 07:05 RBC 3.22 Mil/cmm (3.80-5.80) L 01/25/17 07:05 Hgb 10.4 gm/dL (12-16) L 01/25/17 07:05 Hct 30.5 % (41.0-60) L 01/25/17 07:05 MCV 94.8 fl (80-99) 01/25/17 07:05 MCH 32.5 pg (27.0-31.0) H 01/25/17 07:05 MCHC Differential 34.3 pg (28.0-36.0) 01/25/17 07:05 RDW 13.6 % (11.5-20.0) 01/25/17 07:05 Plt Count 201 Th/cmm (150-400) 01/25/17 07:05 MPV 7.4 fl 01/25/17 07:05 Neutrophils % EXECUTIVE CHEF ASSISTANT 01/24/17 04:30 Band Neutrophils % 8 % (0-10) 01/24/17 04:30 Lymphocytes % EXECUTIVE CHEF ASSISTANT 01/24/17 04:30 Monocytes % EXECUTIVE CHEF ASSISTANT 01/24/17 04:30 Eosinophils % EXECUTIVE CHEF ASSISTANT 01/18/17 05:37 Basophils % EXECUTIVE CHEF ASSISTANT 01/18/17 05:37 Neutrophils (Manual) 84 % (40-80) H 01/24/17 04:30 Lymphocytes 6 % (20-50) L 01/24/17 04:30 Monocytes 2 % (2-10) 01/24/17 04:30 Eosinophils 1 % (0-5) 01/20/17 05:44 Basophils 0 % (0-3) 01/19/17 10:00 Platelet Estimate ADEQUATE (NORMAL) 01/19/17 10:00 Platelet Morphology NORMAL (NORMAL) 01/19/17 10:00 Anisocytosis 1+ 01/06/17 12:32 RBC Morph Micro Appear NORMAL (NORMAL) 01/19/17 10:00 PT 11.9 SECONDS (9.5-11.5) H 01/23/17 05:40 INR 1.13 (0.5-1.4) 01/23/17 05:40 PTT (Actin FS) 24.1 SECONDS (26.0-38.0) L 01/23/17 05:40 Sodium 136 mEq/L (136-145) 01/25/17 07:05 Potassium 4.0 mEq/L (3.5-5.1) 01/25/17 07:05 Chloride 106 mEq/L (98-107) 01/25/17 07:05 Carbon Dioxide 24.3 mEq/L (21.0-31.0) 01/25/17 07:05 Anion Gap 9.7 (7.0-16.0) 01/25/17 07:05 BUN 13 mg/dL (7-25) 01/25/17 07:05 Creatinine 0.6 mg/dL (0.7-1.3) L 01/25/17 07:05 Est GFR ( Amer) TNP 01/25/17 07:05 Est GFR (Non-Af Amer) TNP 01/25/17 07:05 BUN/Creatinine Ratio 21.7 01/25/17 07:05 Glucose 137 mg/dL (70-105) H 01/25/17 07:05 POC Glucose 140 MG/DL (70 - 105) H 01/25/17 05:31 Hemoglobin A1c % 5.7 % (4.0-6.0) 01/14/17 09:07 Whole Bld Lactic Acid 0.95 mmol/L (0.60-1.99) 01/06/17 10:53 Calcium 8.0 mg/dL (8.6-10.3) L 01/25/17 07:05 Phosphorus 2.2 mg/dL (2.5-5.0) L 01/16/17 05:00 Magnesium 1.7 mg/dL (1.9-2.7) L 01/25/17 07:05 Total Bilirubin 1.0 mg/dL (0.3-1.0) 01/25/17 07:05 AST 21 U/L (13-39) 01/25/17 07:05 ALT 22 U/L (7-52) 01/25/17 07:05 Alkaline Phosphatase 42 U/L (34-104) 01/25/17 07:05 Creatine Kinase 52 U/L (30-223) 01/06/17 10:50 B-Natriuretic Peptide 189.0 pg/mL (5.0-100.0) H 01/18/17 05:37 Total Protein 4.7 gm/dL (6.0-8.3) L 01/25/17 07:05 Albumin 2.7 gm/dL (4.2-5.5) L 01/25/17 07:05 Globulin 2.0 gm/dL 01/25/17 07:05 Albumin/Globulin Ratio 1.4 (1.0-1.8) 01/25/17 07:05 Triglycerides 343 mg/dL (<150) H 01/11/17 09:15 Cholesterol 163 mg/dL (<200) 01/11/17 09:15 LDL Cholesterol Direct 82 mg/dL (75-193) 01/11/17 09:15 HDL Cholesterol 46 mg/dL (23-92) 01/11/17 09:15 TSH 2.29 uIU/ml (0.34-5.60) 01/25/17 07:05 PTH Intact 31 pg/mL (15-65) 01/06/17 12:09 Urine Source RAE PORT 01/15/17 14:00 Urine Color YELLOW 01/15/17 14:00 Urine Clarity SLIGHT CLOUDY (CLEAR) 01/15/17 14:00 Urine pH 6.0 (4.6 - 8.0) 01/15/17 14:00 Ur Specific [place] 1.020 (1.005-1.030) 01/15/17 14:00 Urine Protein NEGATIVE mg/dL (NEGATIVE) 01/15/17 14:00 Urine Glucose (UA) >=1000 mg/dL (NEGATIVE) H 01/15/17 14:00 Urine Ketones NEGATIVE mg/dL (NEGATIVE) 01/15/17 14:00 Urine Blood MODERATE (NEGATIVE) H 01/15/17 14:00 Urine Nitrate NEGATIVE (NEGATIVE) 01/15/17 14:00 Urine Bilirubin NEGATIVE (NEGATIVE) 01/15/17 14:00 Urine Urobilinogen 0.2 E.U./dL (0.2 - 1.0) 01/15/17 14:00 Ur Leukocyte Esterase NEGATIVE (NEGATIVE) 01/15/17 14:00 Urine RBC 10-25 /hpf (0-5) H 01/15/17 14:00 Urine WBC 2-5 /hpf (0-5) H 01/15/17 14:00 Ur Epithelial Cells FEW /lpf (FEW) 01/15/17 14:00 Amorphous Sediment MODERATE URATES (NONE SEEN) 01/11/17 16:00 Urine Bacteria FEW /hpf (NONE SEEN) 01/15/17 14:00 Fine Granular Casts 0-2 /lpf (NONE SEEN) H 01/11/17 16:00 Urine Mucus FEW /lpf (FEW) 01/15/17 14:00 Urine Yeast FEW /hpf (NONE SEEN) H 01/11/17 16:00 Gentamicin Peak 11.0 ug/ml (4.0-8.0) H 01/24/17 15:52 Gentamicin Trough 0.9 ug/ml (0.2-2.0) 01/24/17 12:55 Vancomycin Trough 7.3 ug/mL (10-20) L 01/14/17 08:05 Blood Type O POSITIVE 01/23/17 05:40 Antibody Screen NEGATIVE 01/23/17 05:40 - Physical Exam Vitals and I&O: Vital Signs Temp 97.0 F 01/25/17 04:00 Pulse 87 01/25/17 07:53 Resp 19 01/25/17 04:00 BP 110/69 01/25/17 06:45 Pulse Ox 97 01/25/17 07:53 Intake & Output 01/24/17 01/25/17 01/25/17 18:59 06:59 18:59 Intake Total 1206 100 Output Total 800 660 Balance 406 -560 Weight (lbs) 53.977 kg 53.977 kg Intake: Intake, IV Amount 1206 100 D5-0.9NS w/KCL 20mEq 1, 1000 000 ml @ 50 mls/hr IV . Q20H [facility] Rx#:[id number] Gentamicin 240 mg In 106 Sodium Chloride 0.9% 100 ml @ 100 mls/hr IV Q24H [facility] Rx#:[id number] Levetiracetam 500mg/100mL 100 500 mg In 100 ml @ 400 mls/hr IV Q12HR@0900,2100 [facility] Rx#:[id number] Piperacillin Sodium/ 100 Tazobact 4.5 gm In Sodium Chloride 0.9% 100 ml @ 100 mls/hr IV Q8HR [facility] Rx #:[id number] Oral 0 Output: Drainage 400 Right Lower Abdomen 400 Urine 400 600 Stool 0 15 Other 45 Active Medications: Current Medications Acetaminophen (Tylenol 650mg Supp) 650 mg RC Q4H PRN PRN Reason: Fever > 101 Stop: 03/10/17 13:04 Last Admin: 01/12/17 03:37 Dose: 650 mg Albuterol/Ipratropium (Duoneb Neb) 3 ml HHN Q4HRT [facility] Stop: 03/11/17 14:59 Last Admin: 01/25/17 07:59 Dose: 3 ml Albuterol/Ipratropium (Duoneb Neb) 3 ml HHN Q2HRT PRN PRN Reason: Wheezing Stop: 03/11/17 13:46 Albuterol/Ipratropium (Duoneb Neb) 3 ml HHN [id number] [facility] Stop: 03/25/17 14:59 Artificial Tears (Artificial Tears Ophth Soln) 1 drop EACH EYE BID [facility] Stop: 03/08/17 08:59 Last Admin: 01/24/17 18:33 Dose: 1 drop Ascorbic Acid (Vitamin C) 500 mg PO DAILY [facility] Stop: 03/08/17 08:59 Last Admin: 01/24/17 10:01 Dose: Not Given Aspirin (Aspirin Chewable) 81 mg PO DAILY [facility] Stop: 03/13/17 08:59 Last Admin: 01/24/17 10:01 Dose: Not Given Atorvastatin Calcium (Lipitor) 20 mg PO DAILY [facility] PRN Reason: Protocol Stop: 03/12/17 16:29 Last Admin: 01/24/17 10:01 Dose: Not Given Atropine Sulfate (Atropine Syringe) 1 mg IVP Q4HR PRN PRN Reason: HR BELOW 40 Stop: 03/09/17 08:32 Last Admin: 01/09/17 01:00 Dose: 1 mg Bisacodyl (Dulcolax 10 Mg Supp) 10 mg RC HS [facility] Stop: 03/14/17 20:59 Last Admin: 01/24/17 20:50 Dose: Not Given Budesonide (Pulmicort) 0.5 mg HHN BIDRT [facility] Stop: 03/25/17 18:59 Last Admin: 01/25/17 08:04 Dose: 0.5 mg Calcium/Vitamin D (Oscal W/Vitamin D) 1 tab PO DAILY [facility] Stop: 03/08/17 08:59 Last Admin: 01/24/17 10:02 Dose: Not Given Chlorhexidine Gluconate (Peridex) 15 ml MM 0800,2000 [facility] Stop: 03/24/17 19:59 Last Admin: 01/24/17 21:28 Dose: 15 ml Cyanocobalamin (Vitamin B12) 500 mcg PO DAILY [facility] Stop: 03/08/17 08:59 Last Admin: 01/24/17 12:32 Dose: Not Given Diltiazem HCl (Cardizem) 20 mg IVP Q4HR PRN PRN Reason: FOR HR>130 Stop: 03/13/17 03:53 Last Admin: 01/12/17 20:50 Dose: 20 mg Docusate Sodium (Colace) 100 mg PO DAILY [facility] Stop: 03/08/17 08:59 Last Admin: 01/24/17 09:00 Dose: Not Given Levetiracetam (Keppra Pb) 500 mg in 100 mls @ 400 mls/hr IV Q12HR@0900,2100 [facility] Stop: 03/13/17 10:29 Last Admin: 01/24/17 20:45 Dose: 400 mls/hr Potassium Chloride/Dextrose/Sod Cl (D5-0.9ns W/Kcl 20meq) 1,000 mls @ 50 mls/ hr IV .Q20H [facility] Stop: 03/20/17 08:44 Last Admin: 01/24/17 14:23 Dose: 50 mls/hr Gentamicin Sulfate 240 mg/ (Sodium Chloride) 106 mls @ 100 mls/hr IV Q24H [facility] Stop: 03/23/17 13:59 Last Infusion: 01/24/17 18:19 Dose: Infused Norepinephrine Bitartrate 4 mg (/ Dextrose) 254 mls @ 11.43 mls/hr IV TITR PRN ; Protocol; 3 MCG/MIN PRN Reason: BP MAINTENANCE (PER PROTOCOL) Stop: 03/25/17 00:15 Last Admin: 01/24/17 02:21 Dose: 3 mcg/min, 11.43 mls/hr Piperacillin Sod/Tazobactam (Sod 4.5 gm/ Sodium Chloride) 100 mls @ 100 mls/hr IV Q8HR [facility] Stop: 03/25/17 20:59 Last Admin: 01/25/17 05:53 Dose: 100 mls/hr Insulin Aspart (Novolog Insulin Sliding Scale) 2 - 12 units SUBQ ACHS [facility] PRN Reason: Protocol Stop: 03/16/17 20:59 Last Admin: 01/24/17 21:03 Dose: Not Given Lorazepam (Ativan) 1 mg IVP Q4HR PRN; Protocol PRN Reason: Seizure Stop: 03/15/17 09:07 Last Admin: 01/23/17 15:05 Dose: 1 mg Methylprednisolone Sodium Succinate (Solu-Medrol) 20 mg IVP Q12HR [facility] Stop: 03/19/17 15:43 Last Admin: 01/24/17 20:32 Dose: 20 mg Metoclopramide HCl (Reglan) 10 mg IVP Q8HR PRN PRN Reason: Abdominal Pain Stop: 03/26/17 08:23 Mineral Oil (Fleet Mineral Oil) 135 ml RC DAILY PRN PRN Reason: CONSTIPATION Stop: 03/13/17 12:59 Last Admin: 01/14/17 10:49 Dose: 135 ml Mineral Oil (Mineral Oil 30 Ml) 30 ml NG Q6HR [facility] Stop: 03/15/17 11:59 Last Admin: 01/25/17 05:44 Dose: Not Given Miscellaneous (Vte Chemical Prophylaxis Screen/ Admission) 1 ea PRN PRN PRN Reason: PROTOCOL Stop: 03/08/17 11:10 Miscellaneous (Probiotic Screen) 1 ea PRN PRN PRN Reason: PROTOCOL Stop: 03/13/17 13:54 Miscellaneous (Gentamicin Iv Per Pharmacy) 1 ea PRN PRN PRN Reason: PROTOCOL Stop: 03/19/17 08:25 Morphine Sulfate (Morphine) 2 mg IM Q4HR PRN PRN Reason: Pain (Moderate) Stop: 03/24/17 17:05 Ondansetron HCl (Zofran) 4 mg IV UD PRN PRN Reason: Nausea / Vomiting Stop: 03/24/17 11:30 Polyethylene Glycol (Miralax) 17 gm PO BID [facility] Stop: 03/14/17 16:59 Last Admin: 01/24/17 18:33 Dose: Not Given Potassium Chloride (Klor-Con) 20 meq PO DAILY [facility] Stop: 03/08/17 08:59 Last Admin: 01/24/17 09:00 Dose: Not Given General: Alert, No acute distress HEENT: Atraumatic, PERRLA, EOMI Neck: Supple Cardiovascular: Regular rate, Normal S1, Normal S2 Lungs: Other (wheezing,) Abdomen: Bowel sounds, Distended, Other (non tender, no guarding, no rebound) Extremities: no Clubbing, no Cyanosis, no Edema - Procedures Procedures: Procedures Procedure Code Date BYPASS ILEUM TO CUTANEOUS, OPEN APPROACH [id number] 01/06/17 REMOVAL OF COLON 19018 01/06/17 REMOVAL OF GALLBLADDER 22559 01/06/17 RESECTION OF GALLBLADDER, OPEN APPROACH [id number] 01/06/17 RESECTION OF LARGE INTESTINE, OPEN APPROACH [id number] 01/06/17 Assessment/Plan - Problem List Patient Problems: All Active Problems Constipation (Acute) K59.00 Dementia (Acute) F03.90 Facial twitching (Acute) G51.4 Hypocalcemia (Acute) E83.51 Hypokalemia (Acute) E87.6 Hypomagnesemia (Acute) E83.42 Hypophosphatemia (Acute) E83.39 Ileus (Acute) K56.7 Leukocytosis (Acute) D72.829 Multiple sclerosis (Acute) G35 Seizure disorder (Acute) G40.909 Sinus bradycardia (Acute) R00.1 Nutritional Asmnt/Malnutr-PDOC - Dietary Evaluation Malnutrition Findings (Please click <Entered> for more info): Nutritional Asmnt/Malnutrition Start: 01/08/17 12: 55 Text: Status: Complete Freq: Document 01/08/17 12:56 GSUN (Rec: 01/08/17 13:16 [email or web address] [id number]) Nutritional Asmnt/Malnutrition Patient General Information Nutritional Screening Consult Diagnosis ALOC, acute MS exacerbation Pertinent Medical Hx/Surgical Hx Dementia, multiple sclerosis, constipation Subjective Information 76 year old male from SNF. RD consult for low Audi. Per RN notes, facial twitching on adm, currently NPO with swallow eval pending. Pt was awake during visit, followed RD with eyes, did not provide any information. Mild wasting to chest noted, loose skin to arms. Current Diet Order/ Nutrition Support NPO Pertinent Medications Vitamin C, Oscal W/Vitamin D, Vitamin B12, D5-0.45ns, Dulcolax, Colace Pertinent Labs 01/08: reviewed. Glucose 148H Nutritional Hx/Data Height 1.85 m Height (Calculated Centimeters) 185.4 Current Weight (lbs) 69.49 kg Weight (Calculated Kilograms) 69.5 Weight (Calculated Grams) 68873.4 [place] Body Weight 184 Weight Status Approriate GI Symptoms Usual diet at home [facility]: pureed, large portion lunch and dinner, 4oz house supplement Skin Integrity/Comment: Audi 12. Pressure area r foot and upper back, abrasion l knee and r leg Estimated Nutritional Goals BEE in Kcals: Using Current wt Calories/Kcals/Kg IBW 184lb/83.6kg with consideration skin integrity and BMI Kcals Calculated 0-2508kcal (25-30kcal/kg) Protein: Using Current wt Protein Calculated 84-109g (1-1.3g/kg) Fluid: ml 0-2508ml (1ml/kcal) Nutritional Problem 2. Problem Problem Increased prot needs related to Etiology skin integrity aeb Signs/Symptoms: director perioperative: pressure area to right foot and upper back, abrasion ro left knee and right lower leg 1. 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 Recommend regular diet, diet texture per swallow eval (pending). SNF order pureed. Expected Outcomes/Goals Expected Outcomes/Goals 1. PO intake to meet at least 75% of estimated nutritional needs.
[2017-01-25] MEDS: Aspirin 81mg Chewable Tab PO SCH (08:34)
[2017-01-25] MEDS: Atorvastatin Calcium 10 MG TAB PO SCH (08:34)
[2017-01-25] MEDS: Calcium Carb/Vit D 500 mg/200 U Tab PO SCH (08:35)
[2017-01-25] MEDS: Multivitamin w/ Minerals Tab PO SCH (08:35)
[2017-01-25] MEDS: Potassium Chloride 20 mEq ER Tab PO SCH (08:36)
[2017-01-25] MEDS: POLYETHYLENE GLYCOL 3350 17 GM PACK PO SCH ×2 (08:36→18:11)
[2017-01-25 08:43] LABS: BAND NEUTROPHILE 4 % (0-10); NEUTROPHILS 84 % (40-80); TOTAL CELLS COUNTED 100
[2017-01-25] MEDS: Levetiracetam 500mg/100mL 500 MG/100 ML BAG IV SCH ×2 (08:44→20:13)
[2017-01-25] MEDS: methylPREDNISolone SS 40 mg Vial IVP SCH ×2 (08:45→20:13)
--- NOTE | 2017-01-25 08:45 | General Progress Note ---
Subjective - Review of Systems Service Date: 01/25/17 Subjective: S/p total Colectomy with diverting colostomy. Awake, alert, no acute distress. on vasopressor. on mechanical vent. Objective - Results Result Diagrams: 01/25/17 07:05 01/25/17 07:05 Recent Labs: Laboratory Last Values WBC 20.1 Th/cmm (4.8-10.8) H* 01/25/17 07:05 RBC 3.22 Mil/cmm (3.80-5.80) L 01/25/17 07:05 Hgb 10.4 gm/dL (12-16) L 01/25/17 07:05 Hct 30.5 % (41.0-60) L 01/25/17 07:05 MCV 94.8 fl (80-99) 01/25/17 07:05 MCH 32.5 pg (27.0-31.0) H 01/25/17 07:05 MCHC Differential 34.3 pg (28.0-36.0) 01/25/17 07:05 RDW 13.6 % (11.5-20.0) 01/25/17 07:05 Plt Count 201 Th/cmm (150-400) 01/25/17 07:05 MPV 7.4 fl 01/25/17 07:05 Neutrophils % STONE GLUER 01/24/17 04:30 Band Neutrophils % 8 % (0-10) 01/24/17 04:30 Lymphocytes % STONE GLUER 01/24/17 04:30 Monocytes % STONE GLUER 01/24/17 04:30 Eosinophils % STONE GLUER 01/18/17 05:37 Basophils % STONE GLUER 01/18/17 05:37 Neutrophils (Manual) 84 % (40-80) H 01/24/17 04:30 Lymphocytes 6 % (20-50) L 01/24/17 04:30 Monocytes 2 % (2-10) 01/24/17 04:30 Eosinophils 1 % (0-5) 01/20/17 05:44 Basophils 0 % (0-3) 01/19/17 10:00 Platelet Estimate ADEQUATE (NORMAL) 01/19/17 10:00 Platelet Morphology NORMAL (NORMAL) 01/19/17 10:00 Anisocytosis 1+ 01/06/17 12:32 RBC Morph Micro Appear NORMAL (NORMAL) 01/19/17 10:00 PT 11.9 SECONDS (9.5-11.5) H 01/23/17 05:40 INR 1.13 (0.5-1.4) 01/23/17 05:40 PTT (Actin FS) 24.1 SECONDS (26.0-38.0) L 01/23/17 05:40 Sodium 136 mEq/L (136-145) 01/25/17 07:05 Potassium 4.0 mEq/L (3.5-5.1) 01/25/17 07:05 Chloride 106 mEq/L (98-107) 01/25/17 07:05 Carbon Dioxide 24.3 mEq/L (21.0-31.0) 01/25/17 07:05 Anion Gap 9.7 (7.0-16.0) 01/25/17 07:05 BUN 13 mg/dL (7-25) 01/25/17 07:05 Creatinine 0.6 mg/dL (0.7-1.3) L 01/25/17 07:05 Est GFR ( Amer) TNP 01/25/17 07:05 Est GFR (Non-Af Amer) TNP 01/25/17 07:05 BUN/Creatinine Ratio 21.7 01/25/17 07:05 Glucose 137 mg/dL (70-105) H 01/25/17 07:05 POC Glucose 140 MG/DL (70 - 105) H 01/25/17 05:31 Hemoglobin A1c % 5.7 % (4.0-6.0) 01/14/17 09:07 Whole Bld Lactic Acid 0.95 mmol/L (0.60-1.99) 01/06/17 10:53 Calcium 8.0 mg/dL (8.6-10.3) L 01/25/17 07:05 Phosphorus 2.2 mg/dL (2.5-5.0) L 01/16/17 05:00 Magnesium 1.7 mg/dL (1.9-2.7) L 01/25/17 07:05 Total Bilirubin 1.0 mg/dL (0.3-1.0) 01/25/17 07:05 AST 21 U/L (13-39) 01/25/17 07:05 ALT 22 U/L (7-52) 01/25/17 07:05 Alkaline Phosphatase 42 U/L (34-104) 01/25/17 07:05 Creatine Kinase 52 U/L (30-223) 01/06/17 10:50 B-Natriuretic Peptide 189.0 pg/mL (5.0-100.0) H 01/18/17 05:37 Total Protein 4.7 gm/dL (6.0-8.3) L 01/25/17 07:05 Albumin 2.7 gm/dL (4.2-5.5) L 01/25/17 07:05 Globulin 2.0 gm/dL 01/25/17 07:05 Albumin/Globulin Ratio 1.4 (1.0-1.8) 01/25/17 07:05 Triglycerides 343 mg/dL (<150) H 01/11/17 09:15 Cholesterol 163 mg/dL (<200) 01/11/17 09:15 LDL Cholesterol Direct 82 mg/dL (75-193) 01/11/17 09:15 HDL Cholesterol 46 mg/dL (23-92) 01/11/17 09:15 TSH 2.29 uIU/ml (0.34-5.60) 01/25/17 07:05 PTH Intact 31 pg/mL (15-65) 01/06/17 12:09 Urine Source RAE PORT 01/15/17 14:00 Urine Color YELLOW 01/15/17 14:00 Urine Clarity SLIGHT CLOUDY (CLEAR) 01/15/17 14:00 Urine pH 6.0 (4.6 - 8.0) 01/15/17 14:00 Ur Specific [place] 1.020 (1.005-1.030) 01/15/17 14:00 Urine Protein NEGATIVE mg/dL (NEGATIVE) 01/15/17 14:00 Urine Glucose (UA) >=1000 mg/dL (NEGATIVE) H 01/15/17 14:00 Urine Ketones NEGATIVE mg/dL (NEGATIVE) 01/15/17 14:00 Urine Blood MODERATE (NEGATIVE) H 01/15/17 14:00 Urine Nitrate NEGATIVE (NEGATIVE) 01/15/17 14:00 Urine Bilirubin NEGATIVE (NEGATIVE) 01/15/17 14:00 Urine Urobilinogen 0.2 E.U./dL (0.2 - 1.0) 01/15/17 14:00 Ur Leukocyte Esterase NEGATIVE (NEGATIVE) 01/15/17 14:00 Urine RBC 10-25 /hpf (0-5) H 01/15/17 14:00 Urine WBC 2-5 /hpf (0-5) H 01/15/17 14:00 Ur Epithelial Cells FEW /lpf (FEW) 01/15/17 14:00 Amorphous Sediment MODERATE URATES (NONE SEEN) 01/11/17 16:00 Urine Bacteria FEW /hpf (NONE SEEN) 01/15/17 14:00 Fine Granular Casts 0-2 /lpf (NONE SEEN) H 01/11/17 16:00 Urine Mucus FEW /lpf (FEW) 01/15/17 14:00 Urine Yeast FEW /hpf (NONE SEEN) H 01/11/17 16:00 Gentamicin Peak 11.0 ug/ml (4.0-8.0) H 01/24/17 15:52 Gentamicin Trough 0.9 ug/ml (0.2-2.0) 01/24/17 12:55 Vancomycin Trough 7.3 ug/mL (10-20) L 01/14/17 08:05 Blood Type O POSITIVE 01/23/17 05:40 Antibody Screen NEGATIVE 01/23/17 05:40 - Physical Exam Vitals and I&O: Vital Signs Temp 97.0 F 01/25/17 04:00 Pulse 87 01/25/17 07:53 Resp 19 01/25/17 04:00 BP 110/69 01/25/17 06:45 Pulse Ox 97 01/25/17 07:53 Intake & Output 01/24/17 01/25/17 01/25/17 18:59 06:59 18:59 Intake Total 1206 100 Output Total 800 660 Balance 406 -560 Weight (lbs) 53.977 kg 53.977 kg Intake: Intake, IV Amount 1206 100 D5-0.9NS w/KCL 20mEq 1, 1000 000 ml @ 50 mls/hr IV . Q20H LIZ[facility] Rx#:[id number] Gentamicin 240 mg In 106 Sodium Chloride 0.9% 100 ml @ 100 mls/hr IV Q24H LIZ[facility] Rx#:[id number] Levetiracetam 500mg/100mL 100 500 mg In 100 ml @ 400 mls/hr IV Q12HR@0900,2100 LIZY Rx#:[id number] Piperacillin Sodium/ 100 Tazobact 4.5 gm In Sodium Chloride 0.9% 100 ml @ 100 mls/hr IV Q8HR [facility] Rx #:[id number] Oral 0 Output: Drainage 400 Right Lower Abdomen 400 Urine 400 600 Stool 0 15 Other 45 Active Medications: Current Medications Acetaminophen (Tylenol 650mg Supp) 650 mg RC Q4H PRN PRN Reason: Fever > 101 Stop: 03/10/17 13:04 Last Admin: 01/12/17 03:37 Dose: 650 mg Albuterol/Ipratropium (Duoneb Neb) 3 ml HHN Q4HRT [facility] Stop: 03/11/17 14:59 Last Admin: 01/25/17 07:59 Dose: 3 ml Albuterol/Ipratropium (Duoneb Neb) 3 ml HHN Q2HRT PRN PRN Reason: Wheezing Stop: 03/11/17 13:46 Albuterol/Ipratropium (Duoneb Neb) 3 ml HHN [id number] [facility] Stop: 03/25/17 14:59 Artificial Tears (Artificial Tears Ophth Soln) 1 drop EACH EYE BID [facility] Stop: 03/08/17 08:59 Last Admin: 01/24/17 18:33 Dose: 1 drop Ascorbic Acid (Vitamin C) 500 mg PO DAILY [facility] Stop: 03/08/17 08:59 Last Admin: 01/25/17 08:33 Dose: Not Given Aspirin (Aspirin Chewable) 81 mg PO DAILY [facility] Stop: 03/13/17 08:59 Last Admin: 01/25/17 08:34 Dose: Not Given Atorvastatin Calcium (Lipitor) 20 mg PO DAILY [facility] PRN Reason: Protocol Stop: 03/12/17 16:29 Last Admin: 01/25/17 08:34 Dose: Not Given Atropine Sulfate (Atropine Syringe) 1 mg IVP Q4HR PRN PRN Reason: HR BELOW 40 Stop: 03/09/17 08:32 Last Admin: 01/09/17 01:00 Dose: 1 mg Bisacodyl (Dulcolax 10 Mg Supp) 10 mg RC HS [facility] Stop: 03/14/17 20:59 Last Admin: 01/24/17 20:50 Dose: Not Given Budesonide (Pulmicort) 0.5 mg HHN BIDRT [facility] Stop: 03/25/17 18:59 Last Admin: 01/25/17 08:04 Dose: 0.5 mg Calcium/Vitamin D (Oscal W/Vitamin D) 1 tab PO DAILY [facility] Stop: 03/08/17 08:59 Last Admin: 01/25/17 08:35 Dose: Not Given Chlorhexidine Gluconate (Peridex) 15 ml MM 0800,1999 [facility] Stop: 03/24/17 19:59 Last Admin: 01/24/17 21:28 Dose: 15 ml Cyanocobalamin (Vitamin B12) 500 mcg PO DAILY [facility] Stop: 03/08/17 08:59 Last Admin: 01/25/17 08:35 Dose: Not Given Diltiazem HCl (Cardizem) 20 mg IVP Q4HR PRN PRN Reason: FOR HR>130 Stop: 03/13/17 03:53 Last Admin: 01/12/17 20:50 Dose: 20 mg Docusate Sodium (Colace) 100 mg PO DAILY [facility] Stop: 03/08/17 08:59 Last Admin: 01/25/17 08:35 Dose: Not Given Levetiracetam (Keppra Pb) 500 mg in 100 mls @ 400 mls/hr IV Q12HR@0900,2100 [facility] Stop: 03/13/17 10:29 Last Admin: 01/24/17 20:45 Dose: 400 mls/hr Potassium Chloride/Dextrose/Sod Cl (D5-0.9ns W/Kcl 20meq) 1,000 mls @ 50 mls/ hr IV .Q20H [facility] Stop: 03/20/17 08:44 Last Admin: 01/24/17 14:23 Dose: 50 mls/hr Gentamicin Sulfate 240 mg/ (Sodium Chloride) 106 mls @ 100 mls/hr IV Q24H [facility] Stop: 03/23/17 13:59 Last Infusion: 01/24/17 18:19 Dose: Infused Norepinephrine Bitartrate 4 mg (/ Dextrose) 254 mls @ 11.43 mls/hr IV TITR PRN ; Protocol; 3 MCG/MIN PRN Reason: BP MAINTENANCE (PER PROTOCOL) Stop: 03/25/17 00:15 Last Admin: 01/24/17 02:21 Dose: 3 mcg/min, 11.43 mls/hr Piperacillin Sod/Tazobactam (Sod 4.5 gm/ Sodium Chloride) 100 mls @ 100 mls/hr IV Q8HR [facility] Stop: 03/25/17 20:59 Last Admin: 01/25/17 05:53 Dose: 100 mls/hr Insulin Aspart (Novolog Insulin Sliding Scale) 2 - 12 units SUBQ ACHS LIZY PRN Reason: Protocol Stop: 03/16/17 20:59 Last Admin: 01/24/17 21:03 Dose: Not Given Lorazepam (Ativan) 1 mg IVP Q4HR PRN; Protocol PRN Reason: Seizure Stop: 03/15/17 09:07 Last Admin: 01/23/17 15:05 Dose: 1 mg Methylprednisolone Sodium Succinate (Solu-Medrol) 20 mg IVP Q12HR [facility] Stop: 03/19/17 15:43 Last Admin: 01/24/17 20:32 Dose: 20 mg Metoclopramide HCl (Reglan) 10 mg IVP Q8HR [facility] Stop: 03/26/17 12:59 Mineral Oil (Fleet Mineral Oil) 135 ml RC DAILY PRN PRN Reason: CONSTIPATION Stop: 03/13/17 12:59 Last Admin: 01/14/17 10:49 Dose: 135 ml Mineral Oil (Mineral Oil 30 Ml) 30 ml NG Q6HR [facility] Stop: 03/15/17 11:59 Last Admin: 01/25/17 05:44 Dose: Not Given Miscellaneous (Vte Chemical Prophylaxis Screen/ Admission) 1 ea PRN PRN PRN Reason: PROTOCOL Stop: 03/08/17 11:10 Miscellaneous (Probiotic Screen) 1 [facility] PRN PRN PRN Reason: PROTOCOL Stop: 03/13/17 13:54 Miscellaneous (Gentamicin Iv Per Pharmacy) 1 [facility] PRN PRN PRN Reason: PROTOCOL Stop: 03/19/17 08:25 Morphine Sulfate (Morphine) 2 mg IM Q4HR PRN PRN Reason: Pain (Moderate) Stop: 03/24/17 17:05 Ondansetron HCl (Zofran) 4 mg IV UD PRN PRN Reason: Nausea / Vomiting Stop: 03/24/17 11:30 Polyethylene Glycol (Miralax) 17 gm PO BID [facility] Stop: 03/14/17 16:59 Last Admin: 01/25/17 08:36 Dose: Not Given Potassium Chloride (Klor-Con) 20 meq PO DAILY [facility] Stop: 03/08/17 08:59 Last Admin: 01/25/17 08:36 Dose: Not Given General: Alert, No acute distress HEENT: Atraumatic, PERRLA, EOMI Neck: Supple Cardiovascular: Regular rate, Normal S1, Normal S2 Lungs: Other (wheezing,) Abdomen: Bowel sounds, Distended, Other (non tender, no guarding, no rebound) Extremities: no Clubbing, no Cyanosis, no Edema - Procedures Procedures: Procedures Procedure Code Date BYPASS ILEUM TO CUTANEOUS, OPEN APPROACH [id number] 01/06/17 REMOVAL OF COLON 96763 01/06/17 REMOVAL OF GALLBLADDER 51471 01/06/17 RESECTION OF GALLBLADDER, OPEN APPROACH [id number] 01/06/17 RESECTION OF LARGE INTESTINE, OPEN APPROACH [id number] 01/06/17 Assessment/Plan - Problem List Patient Problems: All Active Problems Constipation (Acute) K59.00 Dementia (Acute) F03.90 Facial twitching (Acute) G51.4 Hypocalcemia (Acute) E83.51 Hypokalemia (Acute) E87.6 Hypomagnesemia (Acute) E83.42 Hypophosphatemia (Acute) E83.39 Ileus (Acute) K56.7 Leukocytosis (Acute) D72.829 Multiple sclerosis (Acute) G35 Seizure disorder (Acute) G40.909 Sinus bradycardia (Acute) R00.1 - Assessment Assessment: ALOC ... improved. CT head NAD, CT carotid no significant stenosis. hypotensive ... improved. will continue IV fluid support. hypernatremia Na 156+ hypokalemia ... will change fluids to D5 1/2NS @ 75cc/hr. add KCL to fluids. . Electrolyte imbalance ... will continue to monitor daily and correct as needed. 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 for carotid duplex, results pending. Leukocytosis improved ... continue Vancomycin IV and Zosyn IV per pharmacy. MS acute exacerbation ... stable. Patient to continue steroids IV. Ileus vs SBO .... keep NPO. continue IV fluids. will order KUB for today. cardiac arrhythmia ... continue anti-arrythmics per Cardiology Seizure disorder ... on Keppra UTI +Pseudomonas ... continue current IV antibiotics. Hyperglycemia ... will decrease solumedrol. dc D5W. - Plan Plan: Acute respiratory failure ... pulmonary consult for vent support. toxic megacolon s/p total colectomy ... TPN ? hypocalcemia ... will order Calcium supplements Leukocytosis ... will continue IV antibiotics per ID. Electrolyte imbalance ... will continue to monitor daily and correct as needed. CVA per MRI head ... management per Dr. Franklin. patient on Heparin drip. for carotid duplex. MS acute exacerbation ... stable. on low dose steroids. Nutritional Asmnt/Malnutr-PDOC - Dietary Evaluation Malnutrition Findings (Please click <Entered> for more info): Nutritional Asmnt/Malnutrition Start: 01/08/17 12: 55 Text: Status: Complete Freq: Document 01/08/17 12:56 GSUN (Rec: 01/08/17 13:16 GSUN [id number]) Nutritional Asmnt/Malnutrition Patient General Information Nutritional Screening Consult Diagnosis ALOC, acute MS exacerbation Pertinent Medical Hx/Surgical Hx Dementia, multiple sclerosis, constipation Subjective Information 76 year old male from SNF. RD consult for laura Huntley. Per RN notes, facial twitching on adm, currently NPO with swallow eval pending. Pt was awake during visit, followed RD with eyes, did not provide any information. Mild wasting to chest noted, loose skin to arms. Current Diet Order/ Nutrition Support NPO Pertinent Medications Vitamin C, Oscal W/Vitamin D, Vitamin B12, D5-0.45ns, Dulcolax, Colace Pertinent Labs 01/08: reviewed. Glucose 148H Nutritional Hx/Data Height 1.85 m Height (Calculated Centimeters) 185.4 Current Weight (lbs) 69.49 kg Weight (Calculated Kilograms) 69.5 Weight (Calculated Grams) 55512.4 [place] Body Weight 184 Weight Status Approriate GI Symptoms Usual diet at home [facility]: pureed, large portion lunch and dinner, 4oz house supplement Skin Integrity/Comment: Audi 12. Pressure area r foot and upper back, abrasion l knee and r leg Estimated Nutritional Goals BEE in Kcals: Using Current wt Calories/Kcals/Kg IBW 184lb/83.6kg with consideration skin integrity and BMI Kcals Calculated 2090-2508kcal (25-30kcal/kg) Protein: Using Current wt Protein Calculated 84-109g (1-1.3g/kg) Fluid: ml 2090-2508ml (1ml/kcal) Nutritional Problem 2. 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 Recommend regular diet, diet texture per swallow eval (pending). SNF order pureed. Expected Outcomes/Goals Expected Outcomes/Goals 1. PO intake to meet at least 75% of estimated nutritional needs.
[2017-01-25 08:49] LABS: ABG SOURCE Arterial; ALLEN TEST YES; BE(B) 5.7 mEq/L (-3.0-3.0); HCO3 29.4 mEq/L (20.0-26.0); pH 7.52 (7.35-7.45)
[2017-01-25 08:50] LABS: FIO2 30; MECH RATE 14; MECH VT 500
[2017-01-25] MEDS: Polyvinyl Alcohol Ophth Soln 15 mL Bottle EACH EYE SCH (12:00)
[2017-01-25] MEDS: Metoclopramide 5 mg/mL 2mL Vial IVP SCH ×2 (13:10→23:21)
[2017-01-25] MEDS ORDERED: Gentamicin 180 MG in Sodium Chloride 0.9% 100 ML IV SCH (14:00)
--- NOTE | 2017-01-25 15:52 | Pathology Report ---
[id number] Collection Date: 01/23/2017 Surgeon: Dr. Edward Schwartz Specimen Description: 1. Total colectomy 2. Gallbladder Gross Description: Part I: Received in formalin is a total colon resection specimen measuring 6 feet in length with a slightly twisted appearance and a diameter that ranges from 2.5 to 15.5 cm. The proximal end of the specimen consists of the ileocecal valve and appendix that measures 5 cm in length x 0.5 cm in diameter. Multiple areas of markedly dilated colon are identified in the ascending, transverse, and sigmoid colon with these areas having a flattened and thinned mucosa. The muscular wall and mucosa measure 0.1 to 0.2 cm in these thinned areas with no evidence for perforation appreciated. The outer serosal surface shows multiple adhesions producing a slightly twisted appearance with focal constriction of the colon to less than 2.5 cm in outer diameter. The proximal and distal mucosal margins show unremarkable mucosa without focal lesions. The pericolic adipose tissue is fairly abundant and shows no evidence for abscess and no mass lesions. Fraud Analyst sections are submitted in 10 cassettes labeled A1 to A10. Cassette A1 shows the appendix, cassette A2 shows the proximal margin/terminal ileum, cassette A3 shows the distal mucosal margin, cassettes A4 and A5 show the constricted areas with adhesions, cassettes A6 through A8 show the flattened mucosa, cassettes A9 and A10 show the most thinned areas. Gross Description: Part II: Received in formalin is a 6.5 x 3.5 x 2.2 cm oval gallbladder with a glistening, [place]pres[place] outer surface. Opening the gallbladder shows multiple yellow-green gallstones measuring up to 1.5 cm in greatest dimension. The gallbladder wall ranges from 0.1 to 0.2 cm in thickness and the mucosa has a greenish-prescott, velvety appearance. There are no focal lesions. Fraud Analyst sections are submitted in one cassette labeled B1. Microscopic Description: Part I: The histologic sections show portions of a total colectomy specimen with marked thinning of the mucosa and muscular wall to less than 0.2 cm. The mucosal folds are flattened and show patchy areas of mild, nonspecific, chronic inflammation consisting of lymphocytes and plasma cells. Fibrous adhesions are seen on the outer serosal surface. Sections of the appendix show no significant changes. Sections of the proximal and distal mucosal margins are also unremarkable. 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 Microscopic Description: Part II: The histologic sections show gallbladder wall and mucosa with mild chronic inflammation present consisting of lymphocytes and plasma cells. Diagnosis: Part II: Chronic cholecystitis and cholelithiasis, gallbladder. [facility]# [id number] MTDD
[2017-01-25] MEDS: D5-0.9NS w/KCL 20mEq 1,000 ML IV SCH (16:13)
--- NOTE | 2017-01-26 02:15 | Progress Notes ---
DATE: 01/25/2017 PROBLEM LIST: 1. Postoperative respiratory failure. 2. Underlying Alzheimer's. SYMPTOMS: The patient is arousable, no respiratory distress, still getting 30% of oxygen with an AC of 16 and saturating 98. The patient is afebrile. PHYSICAL EXAMINATION: VITAL SIGNS: On exam, still on the vent, no distress. NECK: Veins not visualized. CHEST: Shows diminished air entry with occasional rhonchi. HEART: Regular. ABDOMEN: Soft, nontender. LABORATORY DATA: The patient's ABG on 30% of oxygen looks okay and chest x-ray shows some left basal atelectasis and/or infiltrate and otherwise unremarkable. ASSESSMENT: The patient clinically appears to be reasonably stable. PLANS AND SUGGESTIONS: We will go ahead and try SMV mode if he can tolerate it. Continue rest of other treatment and go from there. JOB# [id number]
[2017-01-26] MEDS: Albuterol/Ipratropium Neb 3 ML AERS HHN SCH ×6 (02:44→23:25)
[2017-01-26] MEDS: Metoclopramide 5 mg/mL 2mL Vial IVP SCH ×3 (05:28→20:40)
[2017-01-26] MEDS: Budesonide 0.5 Mg/2 mL Ud HHN SCH ×2 (07:12→19:21)
[2017-01-26 07:28] LABS: % EOSINOPHILS 0.3 % (0.0-5.0); % LYMPHOCYTES 4.3 % (20.0-50.0); % MONOCYTES 6.9 % (2.0-10.0); % NEUTROPHILS 88.5 % (40.0-80.0); HEMATOCRIT 30.4 % (41.0-60); HEMOGLOBIN 10.6 gm/dL (12-16); MEAN CELL VOLUME 95.5 fl (80-99); MEAN CORPUSCULAR HEMOGLOBIN 33.2 pg (27.0-31.0); MEAN CORPUSCULAR HGB CONC 34.8 pg (28.0-36.0); NEUTROPHILE ABSOLUTE 14.8 Th/cmm (1.8-8.0); PLATELET COUNT 180 Th/cmm (150-400); RED BLOOD COUNT 3.18 Mil/cmm (3.80-5.80); RED CELL DISTRIBUTION WIDTH 13.6 % (11.5-20.0)
[2017-01-26 07:38] LABS: WHITE BLOOD COUNT 16.8 Th/cmm (4.8-10.8)
[2017-01-26] MEDS: INSULIN ASPART SLIDING SCALE 100 UNITS/ML UNIT SUBQ SCH ×4 (07:53→20:52)
--- NOTE | 2017-01-26 07:53 | Diagnostic Imaging Report ---
Exam: Chest portable examination HISTORY: Pneumonia. Findings: Portable upright examination of the chest at 0725 hours reviewed. The study compared to previous one day earlier. The study demonstrates endotracheal tube and right jugular catheter unchanged appearance. Mediastinal structures midline. NG tube passes stomach. There is evidence for distention of the bowel loops under the diaphragm. There is a question of lucency under right hemidiaphragm this might represent free air collection. IMPRESSION: 1. Significant distention of bowel loops on the diaphragm. 2. There is evidence for lucency under the right hemidiaphragm might represent free air collection CT examination abdomen is recommended.
[2017-01-26 07:54] LABS: ANION GAP 10.4 (7.0-16.0); BUN - UREA NITROGEN 15 mg/dL (7-25); CALCIUM SERUM 7.9 mg/dL (8.6-10.3); CARBON DIOXIDE 24.1 mEq/L (21.0-31.0); CHLORIDE 104 mEq/L (98-107); CREATININE - SERUM 0.6 mg/dL (0.7-1.3); GLUCOSE 136 mg/dL (70-105); POTASSIUM SERUM 3.5 mEq/L (3.5-5.1); SODIUM SERUM 135 mEq/L (136-145)
[2017-01-26] MEDS ORDERED: Calcium Gluconate 1 GM in Sodium Chloride 0.9% 100 ML IV ONE (08:55)
--- NOTE | 2017-01-26 08:55 | General Progress Note ---
Subjective - Review of Systems Service Date: 01/26/17 Subjective: S/p total Colectomy with diverting colostomy. Awake, alert, no acute distress. off vasopressor. on mechanical vent. WBC's elevated at 16K but improving. Objective - Results Result Diagrams: 01/26/17 06:55 01/26/17 06:55 Recent Labs: Laboratory Last Values WBC 16.8 Th/cmm (4.8-10.8) H 01/26/17 06:55 RBC 3.18 Mil/cmm (3.80-5.80) L 01/26/17 06:55 Hgb 10.6 gm/dL (12-16) L 01/26/17 06:55 Hct 30.4 % (41.0-60) L 01/26/17 06:55 MCV 95.5 fl (80-99) 01/26/17 06:55 MCH 33.2 pg (27.0-31.0) H 01/26/17 06:55 MCHC Differential 34.8 pg (28.0-36.0) 01/26/17 06:55 RDW 13.6 % (11.5-20.0) 01/26/17 06:55 Plt Count 180 Th/cmm (150-400) 01/26/17 06:55 MPV 8.0 fl 01/26/17 06:55 Neutrophils % 88.5 % (40.0-80.0) H 01/26/17 06:55 Band Neutrophils % 4 % (0-10) 01/25/17 07:05 Lymphocytes % 4.3 % (20.0-50.0) L 01/26/17 06:55 Monocytes % 6.9 % (2.0-10.0) 01/26/17 06:55 Eosinophils % 0.3 % (0.0-5.0) 01/26/17 06:55 Basophils % 0.0 % (0.0-2.0) 01/26/17 06:55 Neutrophils (Manual) 84 % (40-80) H 01/25/17 07:05 Lymphocytes 8 % (20-50) L 01/25/17 07:05 Monocytes 4 % (2-10) 01/25/17 07:05 Eosinophils 1 % (0-5) 01/20/17 05:44 Basophils 0 % (0-3) 01/19/17 10:00 Platelet Estimate ADEQUATE (NORMAL) 01/19/17 10:00 Platelet Morphology NORMAL (NORMAL) 01/19/17 10:00 Anisocytosis 1+ 01/06/17 12:32 RBC Morph Micro Appear NORMAL (NORMAL) 01/19/17 10:00 PT 11.9 SECONDS (9.5-11.5) H 01/23/17 05:40 INR 1.13 (0.5-1.4) 01/23/17 05:40 PTT (Actin FS) 24.1 SECONDS (26.0-38.0) L 01/23/17 05:40 Specimen Source Arterial 01/25/17 08:40 Sample Site Right Radial 01/25/17 08:40 pH 7.52 (7.35-7.45) H 01/25/17 08:40 pCO2 35.0 mmHg (35.0-45.0) 01/25/17 08:40 pO2 99.0 mmHg (80.0-100.0) 01/25/17 08:40 HCO3 29.4 mEq/L (20.0-26.0) H 01/25/17 08:40 Base Excess 5.7 mEq/L (-3.0-3.0) H 01/25/17 08:40 O2 Saturation 98.0 % (92.0-100.0) 01/25/17 08:40 Juanjo Test YES 01/25/17 08:40 Vent Rate 14 01/25/17 08:40 Inspired O2 30 01/25/17 08:40 Tidal Volume 500 01/25/17 08:40 PEEP 5 01/25/17 08:40 Pressure (ins/psv/peep) NA 01/25/17 08:40 Critical Value E.VAZQUEZ 01/25/17 08:40 Sodium 135 mEq/L (136-145) L 01/26/17 06:55 Potassium 3.5 mEq/L (3.5-5.1) 01/26/17 06:55 Chloride 104 mEq/L (98-107) 01/26/17 06:55 Carbon Dioxide 24.1 mEq/L (21.0-31.0) 01/26/17 06:55 Anion Gap 10.4 (7.0-16.0) 01/26/17 06:55 BUN 15 mg/dL (7-25) 01/26/17 06:55 Creatinine 0.6 mg/dL (0.7-1.3) L 01/26/17 06:55 Est GFR ( Amer) TNP 01/26/17 06:55 Est GFR (Non-Af Amer) TNP 01/26/17 06:55 BUN/Creatinine Ratio 25.0 01/26/17 06:55 Glucose 136 mg/dL (70-105) H 01/26/17 06:55 POC Glucose 145 MG/DL (70 - 105) H 01/26/17 05:48 Hemoglobin A1c % 5.7 % (4.0-6.0) 01/14/17 09:07 Whole Bld Lactic Acid 0.95 mmol/L (0.60-1.99) 01/06/17 10:53 Calcium 7.9 mg/dL (8.6-10.3) L 01/26/17 06:55 Phosphorus 2.2 mg/dL (2.5-5.0) L 01/16/17 05:00 Magnesium 1.7 mg/dL (1.9-2.7) L 01/25/17 07:05 Total Bilirubin 1.0 mg/dL (0.3-1.0) 01/25/17 07:05 AST 21 U/L (13-39) 01/25/17 07:05 ALT 22 U/L (7-52) 01/25/17 07:05 Alkaline Phosphatase 42 U/L (34-104) 01/25/17 07:05 Creatine Kinase 52 U/L (30-223) 01/06/17 10:50 B-Natriuretic Peptide 189.0 pg/mL (5.0-100.0) H 01/18/17 05:37 Total Protein 4.7 gm/dL (6.0-8.3) L 01/25/17 07:05 Albumin 2.7 gm/dL (4.2-5.5) L 01/25/17 07:05 Globulin 2.0 gm/dL 01/25/17 07:05 Albumin/Globulin Ratio 1.4 (1.0-1.8) 01/25/17 07:05 Triglycerides 343 mg/dL (<150) H 01/11/17 09:15 Cholesterol 163 mg/dL (<200) 01/11/17 09:15 LDL Cholesterol Direct 82 mg/dL (75-193) 01/11/17 09:15 HDL Cholesterol 46 mg/dL (23-92) 01/11/17 09:15 TSH 2.29 uIU/ml (0.34-5.60) 01/25/17 07:05 PTH Intact 31 pg/mL (15-65) 01/06/17 12:09 Urine Source RAE PORT 01/15/17 14:00 Urine Color YELLOW 01/15/17 14:00 Urine Clarity SLIGHT CLOUDY (CLEAR) 01/15/17 14:00 Urine pH 6.0 (4.6 - 8.0) 01/15/17 14:00 Ur Specific [place] 1.020 (1.005-1.030) 01/15/17 14:00 Urine Protein NEGATIVE mg/dL (NEGATIVE) 01/15/17 14:00 Urine Glucose (UA) >=1000 mg/dL (NEGATIVE) H 01/15/17 14:00 Urine Ketones NEGATIVE mg/dL (NEGATIVE) 01/15/17 14:00 Urine Blood MODERATE (NEGATIVE) H 01/15/17 14:00 Urine Nitrate NEGATIVE (NEGATIVE) 01/15/17 14:00 Urine Bilirubin NEGATIVE (NEGATIVE) 01/15/17 14:00 Urine Urobilinogen 0.2 E.U./dL (0.2 - 1.0) 01/15/17 14:00 Ur Leukocyte Esterase NEGATIVE (NEGATIVE) 01/15/17 14:00 Urine RBC 10-25 /hpf (0-5) H 01/15/17 14:00 Urine WBC 2-5 /hpf (0-5) H 01/15/17 14:00 Ur Epithelial Cells FEW /lpf (FEW) 01/15/17 14:00 Amorphous Sediment MODERATE URATES (NONE SEEN) 01/11/17 16:00 Urine Bacteria FEW /hpf (NONE SEEN) 01/15/17 14:00 Fine Granular Casts 0-2 /lpf (NONE SEEN) H 01/11/17 16:00 Urine Mucus FEW /lpf (FEW) 01/15/17 14:00 Urine Yeast FEW /hpf (NONE SEEN) H 01/11/17 16:00 Gentamicin Peak 11.0 ug/ml (4.0-8.0) H 01/24/17 15:52 Gentamicin Trough 0.9 ug/ml (0.2-2.0) 01/24/17 12:55 Vancomycin Trough 7.3 ug/mL (10-20) L 01/14/17 08:05 Blood Type O POSITIVE 01/23/17 05:40 Antibody Screen NEGATIVE 01/23/17 05:40 - Physical Exam Vitals and I&O: Vital Signs Temp 97.6 F 01/26/17 04:00 Pulse 94 01/26/17 07:22 Resp 13 01/26/17 05:59 BP 95/58 01/26/17 05:59 Pulse Ox 97 01/26/17 07:22 Intake & Output 01/25/17 01/26/17 01/26/17 18:59 06:59 18:59 Intake Total 1304.5 989.167 Output Total 1255 1050 Balance 49.5 -60.833 Weight (lbs) 53.977 kg 53.977 kg Intake: Intake, IV Amount 1304.5 989.167 D5-0.9NS w/KCL 20mEq 1, 1000 689.167 000 ml @ 50 mls/hr IV . Q20H [facility] Rx#:[id number] Gentamicin 180 mg In 104.5 Sodium Chloride 0.9% 100 ml @ 100 mls/hr IV Q24H [facility] Rx#:[id number] Levetiracetam 500mg/100mL 100 100 500 mg In 100 ml @ 400 mls/hr IV Q12HR@0900,2100 [facility] Rx#:[id number] Piperacillin Sodium/ 100 200 Tazobact 4.5 gm In Sodium Chloride 0.9% 100 ml @ 100 mls/hr IV Q8HR [facility] Rx #:[id number] Output: Drainage 55 50 Right Lower Abdomen 55 50 Urine 400 750 Stool 250 Other 800 Active Medications: Current Medications Acetaminophen (Tylenol 650mg Supp) 650 mg RC Q4H PRN PRN Reason: Fever > 101 Stop: 03/10/17 13:04 Last Admin: 01/12/17 03:37 Dose: 650 mg Albuterol/Ipratropium (Duoneb Neb) 3 ml HHN Q4HRT [facility] Stop: 03/11/17 14:59 Last Admin: 01/26/17 07:12 Dose: 3 ml Albuterol/Ipratropium (Duoneb Neb) 3 ml HHN Q2HRT PRN PRN Reason: Wheezing Stop: 03/11/17 13:46 Albuterol/Ipratropium (Duoneb Neb) 3 ml HHN O2VRWED [facility] Stop: 03/25/17 14:59 Artificial Tears (Artificial Tears Ophth Soln) 1 drop EACH EYE BID [facility] Stop: 03/08/17 08:59 Last Admin: 01/25/17 12:00 Dose: 1 drop Ascorbic Acid (Vitamin C) 500 mg PO DAILY [facility] Stop: 03/08/17 08:59 Last Admin: 01/25/17 08:33 Dose: Not Given Aspirin (Aspirin Chewable) 81 mg PO DAILY [facility] Stop: 03/13/17 08:59 Last Admin: 01/25/17 08:34 Dose: Not Given Atorvastatin Calcium (Lipitor) 20 mg PO DAILY [facility] PRN Reason: Protocol Stop: 03/12/17 16:29 Last Admin: 01/25/17 08:34 Dose: Not Given Atropine Sulfate (Atropine Syringe) 1 mg IVP Q4HR PRN PRN Reason: HR BELOW 40 Stop: 03/09/17 08:32 Last Admin: 01/09/17 01:00 Dose: 1 mg Bisacodyl (Dulcolax 10 Mg Supp) 10 mg RC HS [facility] Stop: 03/14/17 20:59 Last Admin: 01/25/17 22:06 Dose: Not Given Budesonide (Pulmicort) 0.5 mg HHN BIDRT [facility] Stop: 03/25/17 18:59 Last Admin: 01/26/17 07:12 Dose: 0.5 mg Calcium/Vitamin D (Oscal W/Vitamin D) 1 tab PO DAILY [facility] Stop: 03/08/17 08:59 Last Admin: 01/25/17 08:35 Dose: Not Given Chlorhexidine Gluconate (Peridex) 15 ml MM 0800,2000 [facility] Stop: 03/24/17 19:59 Last Admin: 01/25/17 20:12 Dose: 15 ml Cyanocobalamin (Vitamin B12) 500 mcg PO DAILY [facility] Stop: 03/08/17 08:59 Last Admin: 01/25/17 08:35 Dose: Not Given Diltiazem HCl (Cardizem) 20 mg IVP Q4HR PRN PRN Reason: FOR HR>130 Stop: 03/13/17 03:53 Last Admin: 01/12/17 20:50 Dose: 20 mg Docusate Sodium (Colace) 100 mg PO DAILY [facility] Stop: 03/08/17 08:59 Last Admin: 01/25/17 08:35 Dose: Not Given Levetiracetam (Keppra Pb) 500 mg in 100 mls @ 400 mls/hr IV Q12HR@0900,2100 [facility] Stop: 03/13/17 10:29 Last Infusion: 01/25/17 21:13 Dose: Infused Potassium Chloride/Dextrose/Sod Cl (D5-0.9ns W/Kcl 20meq) 1,000 mls @ 50 mls/ hr IV .Q20H [facility] Stop: 03/20/17 08:44 Last Infusion: 01/26/17 06:00 Dose: 50 mls/hr Norepinephrine Bitartrate 4 mg (/ Dextrose) 254 mls @ 11.43 mls/hr IV TITR PRN ; Protocol; 3 MCG/MIN PRN Reason: BP MAINTENANCE (PER PROTOCOL) Stop: 03/25/17 00:15 Last Admin: 01/25/17 08:47 Dose: 3 mcg/min, 11.43 mls/hr Piperacillin Sod/Tazobactam (Sod 4.5 gm/ Sodium Chloride) 100 mls @ 100 mls/hr IV Q8HR [facility] Stop: 03/25/17 20:59 Last Infusion: 01/26/17 06:26 Dose: Infused Gentamicin Sulfate 180 mg/ (Sodium Chloride) 104.5 mls @ 100 mls/hr IV Q24H [facility] Stop: 03/26/17 13:59 Last Infusion: 01/25/17 18:12 Dose: Infused Insulin Aspart (Novolog Insulin Sliding Scale) 2 - 12 units SUBQ ACHS [facility] PRN Reason: Protocol Stop: 03/16/17 20:59 Last Admin: 01/25/17 22:04 Dose: Not Given Lorazepam (Ativan) 1 mg IVP Q4HR PRN; Protocol PRN Reason: Seizure Stop: 03/15/17 09:07 Last Admin: 01/23/17 15:05 Dose: 1 mg Methylprednisolone Sodium Succinate (Solu-Medrol) 20 mg IVP Q12HR [facility] Stop: 03/19/17 15:43 Last Admin: 01/25/17 20:13 Dose: 20 mg Metoclopramide HCl (Reglan) 10 mg IVP Q8HR [facility] Stop: 03/26/17 12:59 Last Admin: 01/26/17 05:28 Dose: 10 mg Mineral Oil (Fleet Mineral Oil) 135 ml RC DAILY PRN PRN Reason: CONSTIPATION Stop: 03/13/17 12:59 Last Admin: 01/14/17 10:49 Dose: 135 ml Mineral Oil (Mineral Oil 30 Ml) 30 ml NG Q6HR [facility] Stop: 03/15/17 11:59 Last Admin: 01/26/17 05:37 Dose: Not Given Miscellaneous (Vte Chemical Prophylaxis Screen/ Admission) 1 ea PRN PRN PRN Reason: PROTOCOL Stop: 03/08/17 11:10 Miscellaneous (Probiotic Screen) 1 ea PRN PRN PRN Reason: PROTOCOL Stop: 03/13/17 13:54 Morphine Sulfate (Morphine) 2 mg IM Q4HR PRN PRN Reason: Pain (Moderate) Stop: 03/24/17 17:05 Ondansetron HCl (Zofran) 4 mg IV UD PRN PRN Reason: Nausea / Vomiting Stop: 03/24/17 11:30 Polyethylene Glycol (Miralax) 17 gm PO BID [facility] Stop: 03/14/17 16:59 Last Admin: 01/25/17 18:11 Dose: 17 gm Potassium Chloride (Klor-Con) 20 meq PO DAILY [facility] Stop: 03/08/17 08:59 Last Admin: 01/25/17 08:36 Dose: Not Given General: Alert, No acute distress HEENT: Atraumatic, PERRLA, EOMI Neck: Supple Cardiovascular: Regular rate, Normal S1, Normal S2 Lungs: Other (wheezing,) Abdomen: Bowel sounds, Distended, Other (non tender, no guarding, no rebound) Extremities: no Clubbing, no Cyanosis, no Edema - Procedures Procedures: Procedures Procedure Code Date BYPASS ILEUM TO CUTANEOUS, OPEN APPROACH [id number] 01/06/17 REMOVAL OF COLON 80035 01/06/17 REMOVAL OF GALLBLADDER 15213 01/06/17 RESECTION OF GALLBLADDER, OPEN APPROACH [id number] 01/06/17 RESECTION OF LARGE INTESTINE, OPEN APPROACH [id number] 01/06/17 RESPIRATORY VENTILATION, 24-96 CONSECUTIVE HOURS [id number] 01/06/17 Assessment/Plan - Problem List Patient Problems: All Active Problems Constipation (Acute) K59.00 Dementia (Acute) F03.90 Facial twitching (Acute) G51.4 Hypocalcemia (Acute) E83.51 Hypokalemia (Acute) E87.6 Hypomagnesemia (Acute) E83.42 Hypophosphatemia (Acute) E83.39 Ileus (Acute) K56.7 Leukocytosis (Acute) D72.829 Multiple sclerosis (Acute) G35 Seizure disorder (Acute) G40.909 Sinus bradycardia (Acute) R00.1 - Assessment Assessment: ALOC ... improved. CT head NAD, CT carotid no significant stenosis. hypotensive ... improved. will continue IV fluid support. hypernatremia Na 156+ hypokalemia ... will change fluids to D5 1/2NS @ 75cc/hr. add KCL to fluids. . Electrolyte imbalance ... will continue to monitor daily and correct as needed. 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 for carotid duplex, results pending. Leukocytosis improved ... continue Vancomycin IV and Zosyn IV per pharmacy. MS acute exacerbation ... stable. Patient to continue steroids IV. Ileus vs SBO .... keep NPO. continue IV fluids. will order KUB for today. cardiac arrhythmia ... continue anti-arrythmics per Cardiology Seizure disorder ... on Keppra UTI +Pseudomonas ... continue current IV antibiotics. Hyperglycemia ... will decrease solumedrol. dc D5W. - Plan Plan: Acute respiratory failure ... pulmonary consult for vent support. toxic megacolon s/p total colectomy ... TPN ? hypocalcemia ... will order Calcium supplements Leukocytosis ... will continue IV antibiotics per ID. Electrolyte imbalance ... will continue to monitor daily and correct as needed. CVA per MRI head ... management per Dr. Franklin. patient on Heparin drip. for carotid duplex. MS acute exacerbation ... stable. on low dose steroids. Nutritional Asmnt/Malnutr-PDOC - Dietary Evaluation Malnutrition Findings (Please click <Entered> for more info): Nutritional Asmnt/Malnutrition Start: 01/08/17 12: 55 Text: Status: Complete Freq: Document 01/08/17 12:56 GSUN (Rec: 01/08/17 13:16 GSUN [id number]) Nutritional Asmnt/Malnutrition Patient General Information Nutritional Screening Consult Diagnosis ALOC, acute MS exacerbation Pertinent Medical Hx/Surgical Hx Dementia, multiple sclerosis, constipation Subjective Information 76 year old male from SNF. RD consult for laura Huntley. Per RN notes, facial twitching on adm, currently NPO with swallow eval pending. Pt was awake during visit, followed RD with eyes, did not provide any information. Mild wasting to chest noted, loose skin to arms. Current Diet Order/ Nutrition Support NPO Pertinent Medications Vitamin C, Oscal W/Vitamin D, Vitamin B12, D5-0.45ns, Dulcolax, Colace Pertinent Labs 01/08: reviewed. Glucose 148H Nutritional Hx/Data Height 1.85 m Height (Calculated Centimeters) 185.4 Current Weight (lbs) 69.49 kg Weight (Calculated Kilograms) 69.5 Weight (Calculated Grams) 99175.4 [place] Body Weight 184 Weight Status Approriate GI Symptoms Usual diet at home [facility]: pureed, large portion lunch and dinner, 4oz house supplement Skin Integrity/Comment: Audi 12. Pressure area r foot and upper back, abrasion l knee and r leg Estimated Nutritional Goals BEE in Kcals: Using Current wt Calories/Kcals/Kg IBW 184lb/83.6kg with consideration skin integrity and BMI Kcals Calculated 2090-2508kcal (25-30kcal/kg) Protein: Using Current wt Protein Calculated 84-109g (1-1.3g/kg) Fluid: ml 2090-2508ml (1ml/kcal) Nutritional Problem 2. 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 Recommend regular diet, diet texture per swallow eval (pending). SNF order pureed. Expected Outcomes/Goals Expected Outcomes/Goals 1. PO intake to meet at least 75% of estimated nutritional needs.
[2017-01-26 08:58] LABS: pH 7.52 (7.35-7.45)
[2017-01-26] MEDS: Chlorhexidine Gluconate 0.12% 15mL Mouthwash MM SCH ×2 (08:58→20:48)
[2017-01-26 08:59] LABS: ABG SOURCE Arterial; ALLEN TEST YES; BE(B) 5.7 mEq/L (-3.0-3.0); FIO2 30; HCO3 29.4 mEq/L (20.0-26.0); MECH RATE 10; MECH VT 500; PS 15
[2017-01-26] MEDS: Atorvastatin Calcium 10 MG TAB PO SCH (09:08)
[2017-01-26] MEDS: Aspirin 81mg Chewable Tab PO SCH (09:08)
[2017-01-26] MEDS: Calcium Carb/Vit D 500 mg/200 U Tab PO SCH (09:09)
[2017-01-26] MEDS: Levetiracetam 500mg/100mL 500 MG/100 ML BAG IV SCH ×2 (09:10→20:41)
[2017-01-26] MEDS: Multivitamin w/ Minerals Tab PO SCH (09:12)
[2017-01-26] MEDS: Potassium Chloride 20 mEq ER Tab PO SCH (09:13)
[2017-01-26] MEDS: POLYETHYLENE GLYCOL 3350 17 GM PACK PO SCH ×2 (09:13→17:05)
[2017-01-26] MEDS: Polyvinyl Alcohol Ophth Soln 15 mL Bottle EACH EYE SCH ×2 (09:59→17:08)
[2017-01-26] MEDS: methylPREDNISolone SS 40 mg Vial IVP SCH ×2 (09:59→20:40)
--- NOTE | 2017-01-26 10:39 | General Progress Note ---
Subjective - Review of Systems Service Date: 01/26/17 Events since last encounter: labs noted incision redressed, clean AFUA drainage sero-sanguinous, moderate Objective - Results Result Diagrams: 01/26/17 06:55 01/26/17 06:55 Recent Labs: Laboratory Last Values WBC 16.8 Th/cmm (4.8-10.8) H 01/26/17 06:55 RBC 3.18 Mil/cmm (3.80-5.80) L 01/26/17 06:55 Hgb 10.6 gm/dL (12-16) L 01/26/17 06:55 Hct 30.4 % (41.0-60) L 01/26/17 06:55 MCV 95.5 fl (80-99) 01/26/17 06:55 MCH 33.2 pg (27.0-31.0) H 01/26/17 06:55 MCHC Differential 34.8 pg (28.0-36.0) 01/26/17 06:55 RDW 13.6 % (11.5-20.0) 01/26/17 06:55 Plt Count 180 Th/cmm (150-400) 01/26/17 06:55 MPV 8.0 fl 01/26/17 06:55 Neutrophils % 88.5 % (40.0-80.0) H 01/26/17 06:55 Band Neutrophils % 4 % (0-10) 01/25/17 07:05 Lymphocytes % 4.3 % (20.0-50.0) L 01/26/17 06:55 Monocytes % 6.9 % (2.0-10.0) 01/26/17 06:55 Eosinophils % 0.3 % (0.0-5.0) 01/26/17 06:55 Basophils % 0.0 % (0.0-2.0) 01/26/17 06:55 Neutrophils (Manual) 84 % (40-80) H 01/25/17 07:05 Lymphocytes 8 % (20-50) L 01/25/17 07:05 Monocytes 4 % (2-10) 01/25/17 07:05 Eosinophils 1 % (0-5) 01/20/17 05:44 Basophils 0 % (0-3) 01/19/17 10:00 Platelet Estimate ADEQUATE (NORMAL) 01/19/17 10:00 Platelet Morphology NORMAL (NORMAL) 01/19/17 10:00 Anisocytosis 1+ 01/06/17 12:32 RBC Morph Micro Appear NORMAL (NORMAL) 01/19/17 10:00 PT 11.9 SECONDS (9.5-11.5) H 01/23/17 05:40 INR 1.13 (0.5-1.4) 01/23/17 05:40 PTT (Actin FS) 24.1 SECONDS (26.0-38.0) L 01/23/17 05:40 Specimen Source Arterial 01/26/17 08:50 Sample Site Right Radial 01/26/17 08:50 pH 7.52 (7.35-7.45) H 01/26/17 08:50 pCO2 35.0 mmHg (35.0-45.0) 01/26/17 08:50 pO2 102.0 mmHg (80.0-100.0) H 01/26/17 08:50 HCO3 29.4 mEq/L (20.0-26.0) H 01/26/17 08:50 Base Excess 5.7 mEq/L (-3.0-3.0) H 01/26/17 08:50 O2 Saturation 98.0 % (92.0-100.0) 01/26/17 08:50 Juanjo Test YES 01/26/17 08:50 Vent Rate 10 01/26/17 08:50 Inspired O2 30 01/26/17 08:50 Tidal Volume 500 01/26/17 08:50 PEEP 4 01/26/17 08:50 Pressure (ins/psv/peep) 15 01/26/17 08:50 Critical Value E.VAZQUEZ 01/26/17 08:50 Sodium 135 mEq/L (136-145) L 01/26/17 06:55 Potassium 3.5 mEq/L (3.5-5.1) 01/26/17 06:55 Chloride 104 mEq/L (98-107) 01/26/17 06:55 Carbon Dioxide 24.1 mEq/L (21.0-31.0) 01/26/17 06:55 Anion Gap 10.4 (7.0-16.0) 01/26/17 06:55 BUN 15 mg/dL (7-25) 01/26/17 06:55 Creatinine 0.6 mg/dL (0.7-1.3) L 01/26/17 06:55 Est GFR ( Amer) TNP 01/26/17 06:55 Est GFR (Non-Af Amer) TNP 01/26/17 06:55 BUN/Creatinine Ratio 25.0 01/26/17 06:55 Glucose 136 mg/dL (70-105) H 01/26/17 06:55 POC Glucose 145 MG/DL (70 - 105) H 01/26/17 05:48 Hemoglobin A1c % 5.7 % (4.0-6.0) 01/14/17 09:07 Whole Bld Lactic Acid 0.95 mmol/L (0.60-1.99) 01/06/17 10:53 Calcium 7.9 mg/dL (8.6-10.3) L 01/26/17 06:55 Phosphorus 2.2 mg/dL (2.5-5.0) L 01/16/17 05:00 Magnesium 1.7 mg/dL (1.9-2.7) L 01/25/17 07:05 Total Bilirubin 1.0 mg/dL (0.3-1.0) 01/25/17 07:05 AST 21 U/L (13-39) 01/25/17 07:05 ALT 22 U/L (7-52) 01/25/17 07:05 Alkaline Phosphatase 42 U/L (34-104) 01/25/17 07:05 Creatine Kinase 52 U/L (30-223) 01/06/17 10:50 B-Natriuretic Peptide 189.0 pg/mL (5.0-100.0) H 01/18/17 05:37 Total Protein 4.7 gm/dL (6.0-8.3) L 01/25/17 07:05 Albumin 2.7 gm/dL (4.2-5.5) L 01/25/17 07:05 Globulin 2.0 gm/dL 01/25/17 07:05 Albumin/Globulin Ratio 1.4 (1.0-1.8) 01/25/17 07:05 Triglycerides 343 mg/dL (<150) H 01/11/17 09:15 Cholesterol 163 mg/dL (<200) 01/11/17 09:15 LDL Cholesterol Direct 82 mg/dL (75-193) 01/11/17 09:15 HDL Cholesterol 46 mg/dL (23-92) 01/11/17 09:15 TSH 2.29 uIU/ml (0.34-5.60) 01/25/17 07:05 PTH Intact 31 pg/mL (15-65) 01/06/17 12:09 Urine Source RAE PORT 01/15/17 14:00 Urine Color YELLOW 01/15/17 14:00 Urine Clarity SLIGHT CLOUDY (CLEAR) 01/15/17 14:00 Urine pH 6.0 (4.6 - 8.0) 01/15/17 14:00 Ur Specific [place] 1.020 (1.005-1.030) 01/15/17 14:00 Urine Protein NEGATIVE mg/dL (NEGATIVE) 01/15/17 14:00 Urine Glucose (UA) >=1000 mg/dL (NEGATIVE) H 01/15/17 14:00 Urine Ketones NEGATIVE mg/dL (NEGATIVE) 01/15/17 14:00 Urine Blood MODERATE (NEGATIVE) H 01/15/17 14:00 Urine Nitrate NEGATIVE (NEGATIVE) 01/15/17 14:00 Urine Bilirubin NEGATIVE (NEGATIVE) 01/15/17 14:00 Urine Urobilinogen 0.2 E.U./dL (0.2 - 1.0) 01/15/17 14:00 Ur Leukocyte Esterase NEGATIVE (NEGATIVE) 01/15/17 14:00 Urine RBC 10-25 /hpf (0-5) H 01/15/17 14:00 Urine WBC 2-5 /hpf (0-5) H 01/15/17 14:00 Ur Epithelial Cells FEW /lpf (FEW) 01/15/17 14:00 Amorphous Sediment MODERATE URATES (NONE SEEN) 01/11/17 16:00 Urine Bacteria FEW /hpf (NONE SEEN) 01/15/17 14:00 Fine Granular Casts 0-2 /lpf (NONE SEEN) H 01/11/17 16:00 Urine Mucus FEW /lpf (FEW) 01/15/17 14:00 Urine Yeast FEW /hpf (NONE SEEN) H 01/11/17 16:00 Gentamicin Peak 11.0 ug/ml (4.0-8.0) H 01/24/17 15:52 Gentamicin Trough 0.9 ug/ml (0.2-2.0) 09/27/17 12:55 Vancomycin Trough 7.3 ug/mL (10-20) L 01/14/17 08:05 Blood Type O POSITIVE 01/23/17 05:40 Antibody Screen NEGATIVE 01/23/17 05:40 - Physical Exam Vitals and I&O: Vital Signs Temp 97.6 F 01/26/17 04:00 Pulse 94 01/26/17 07:22 Resp 13 01/26/17 05:59 BP 95/58 01/26/17 05:59 Pulse Ox 97 01/26/17 07:22 Intake & Output 01/25/17 01/26/17 01/26/17 18:59 06:59 18:59 Intake Total 1304.5 989.167 Output Total 1255 1050 Balance 49.5 -60.833 Weight (lbs) 53.977 kg 53.977 kg Intake: Intake, IV Amount 1304.5 989.167 D5-0.9NS w/KCL 20mEq 1, 1000 689.167 000 ml @ 50 mls/hr IV . Q20H [facility] Rx#:[id number] Gentamicin 180 mg In 104.5 Sodium Chloride 0.9% 100 ml @ 100 mls/hr IV Q24H [facility] Rx#:[id number] Levetiracetam 500mg/100mL 100 100 500 mg In 100 ml @ 400 mls/hr IV Q12HR@0900,2100 [facility] Rx#:[id number] Piperacillin Sodium/ 100 200 Tazobact 4.5 gm In Sodium Chloride 0.9% 100 ml @ 100 mls/hr IV Q8HR [facility] Rx #:[id number] Output: Drainage 55 50 Right Lower Abdomen 55 50 Urine 400 750 Stool 250 Other 800 Active Medications: Current Medications Acetaminophen (Tylenol 650mg Supp) 650 mg RC Q4H PRN PRN Reason: Fever > 101 Stop: 03/10/17 13:04 Last Admin: 01/12/17 03:37 Dose: 650 mg Albuterol/Ipratropium (Duoneb Neb) 3 ml HHN Q4HRT [facility] Stop: 03/11/17 14:59 Last Admin: 01/26/17 07:12 Dose: 3 ml Albuterol/Ipratropium (Duoneb Neb) 3 ml HHN Q2HRT PRN PRN Reason: Wheezing Stop: 03/11/17 13:46 Albuterol/Ipratropium (Duoneb Neb) 3 ml HHN [id number] [facility] Stop: 03/25/17 14:59 Artificial Tears (Artificial Tears Ophth Soln) 1 drop EACH EYE BID LIZY Stop: 03/08/17 08:59 Last Admin: 01/26/17 09:59 Dose: 1 drop Ascorbic Acid (Vitamin C) 500 mg PO DAILY LIZY Stop: 03/08/17 08:59 Last Admin: 01/25/17 08:33 Dose: Not Given Aspirin (Aspirin Chewable) 81 mg PO DAILY [facility]ZY Stop: 03/13/17 08:59 Last Admin: 01/25/17 08:34 Dose: Not Given Atorvastatin Calcium (Lipitor) 20 mg PO DAILY LIZY PRN Reason: Protocol Stop: 03/12/17 16:29 Last Admin: 01/25/17 08:34 Dose: Not Given Atropine Sulfate (Atropine Syringe) 1 mg IVP Q4HR PRN PRN Reason: HR BELOW 40 Stop: 03/09/17 08:32 Last Admin: 01/09/17 01:00 Dose: 1 mg Bisacodyl (Dulcolax 10 Mg Supp) 10 mg RC HS [facility] Stop: 03/14/17 20:59 Last Admin: 01/25/17 22:06 Dose: Not Given Budesonide (Pulmicort) 0.5 mg HHN BIDRT [facility]ZY Stop: 03/25/17 18:59 Last Admin: 01/26/17 07:12 Dose: 0.5 mg Calcium/Vitamin D (Oscal W/Vitamin D) 1 tab PO DAILY LIZY Stop: 03/08/17 08:59 Last Admin: 01/25/17 08:35 Dose: Not Given Chlorhexidine Gluconate (Peridex) 15 ml MM 0800,2000 [facility] Stop: 03/24/17 19:59 Last Admin: 01/26/17 08:58 Dose: 15 ml Cyanocobalamin (Vitamin B12) 500 mcg PO DAILY [facility] Stop: 03/08/17 08:59 Last Admin: 01/25/17 08:35 Dose: Not Given Diltiazem HCl (Cardizem) 20 mg IVP Q4HR PRN PRN Reason: FOR HR>130 Stop: 03/13/17 03:53 Last Admin: 01/12/17 20:50 Dose: 20 mg Docusate Sodium (Colace) 100 mg PO DAILY [facility] Stop: 03/08/17 08:59 Last Admin: 01/25/17 08:35 Dose: Not Given Levetiracetam (Keppra Pb) 500 mg in 100 mls @ 400 mls/hr IV Q12HR@0900,2100 [facility] Stop: 03/13/17 10:29 Last Infusion: 01/25/17 21:13 Dose: Infused Potassium Chloride/Dextrose/Sod Cl (D5-0.9ns W/Kcl 20meq) 1,000 mls @ 50 mls/ hr IV .Q20H [facility] Stop: 03/20/17 08:44 Last Infusion: 01/26/17 06:00 Dose: 50 mls/hr Norepinephrine Bitartrate 4 mg (/ Dextrose) 254 mls @ 11.43 mls/hr IV TITR PRN ; Protocol; 3 MCG/MIN PRN Reason: BP MAINTENANCE (PER PROTOCOL) Stop: 03/25/17 00:15 Last Admin: 01/25/17 08:47 Dose: 3 mcg/min, 11.43 mls/hr Piperacillin Sod/Tazobactam (Sod 4.5 gm/ Sodium Chloride) 100 mls @ 100 mls/hr IV Q8HR [facility] Stop: 03/25/17 20:59 Last Infusion: 01/26/17 06:26 Dose: Infused Insulin Aspart (Novolog Insulin Sliding Scale) 2 - 12 units SUBQ ACHS LIZY PRN Reason: Protocol Stop: 03/16/17 20:59 Last Admin: 01/26/17 07:53 Dose: Not Given Lorazepam (Ativan) 1 mg IVP Q4HR PRN; Protocol PRN Reason: Seizure Stop: 03/15/17 09:07 Last Admin: 01/23/17 15:05 Dose: 1 mg Methylprednisolone Sodium Succinate (Solu-Medrol) 20 mg IVP Q12HR [facility] Stop: 03/19/17 15:43 Last Admin: 01/26/17 09:59 Dose: 20 mg Metoclopramide HCl (Reglan) 10 mg IVP Q8HR [facility] Stop: 03/26/17 12:59 Last Admin: 01/26/17 05:28 Dose: 10 mg Mineral Oil (Fleet Mineral Oil) 135 ml RC DAILY PRN PRN Reason: CONSTIPATION Stop: 03/13/17 12:59 Last Admin: 01/14/17 10:49 Dose: 135 ml Mineral Oil (Mineral Oil 30 Ml) 30 ml NG Q6HR [facility] Stop: 03/15/17 11:59 Last Admin: 01/26/17 05:37 Dose: Not Given Miscellaneous (Vte Chemical Prophylaxis Screen/ Admission) 1 ea MC PRN PRN PRN Reason: PROTOCOL Stop: 03/08/17 11:10 Miscellaneous (Probiotic Screen) 1 ea PRN PRN PRN Reason: PROTOCOL Stop: 03/13/17 13:54 Morphine Sulfate (Morphine) 2 mg IM Q4HR PRN PRN Reason: Pain (Moderate) Stop: 03/24/17 17:05 Ondansetron HCl (Zofran) 4 mg IV UD PRN PRN Reason: Nausea / Vomiting Stop: 03/24/17 11:30 Polyethylene Glycol (Miralax) 17 gm PO BID LIZY Stop: 03/14/17 16:59 Last Admin: 01/25/17 18:11 Dose: 17 gm Potassium Chloride (Klor-Con) 20 meq PO DAILY [facility]ZY Stop: 03/08/17 08:59 Last Admin: 01/25/17 08:36 Dose: Not Given General: Alert, No acute distress HEENT: Atraumatic, PERRLA, EOMI Neck: Supple Cardiovascular: Regular rate, Normal S1, Normal S2 Lungs: Other (wheezing,) Abdomen: Bowel sounds, Distended, Other (non tender, no guarding, no rebound) Extremities: no Clubbing, no Cyanosis, no Edema - Procedures Procedures: Procedures Procedure Code Date BYPASS ILEUM TO CUTANEOUS, OPEN APPROACH [id number] 01/06/17 REMOVAL OF COLON 07852 01/06/17 REMOVAL OF GALLBLADDER 09770 01/06/17 RESECTION OF GALLBLADDER, OPEN APPROACH [id number] 01/06/17 RESECTION OF LARGE INTESTINE, OPEN APPROACH [id number] 01/06/17 RESPIRATORY VENTILATION, 24-96 CONSECUTIVE HOURS [id number] 01/06/17 Assessment/Plan - Problem List Patient Problems: All Active Problems Constipation (Acute) K59.00 Dementia (Acute) F03.90 Facial twitching (Acute) G51.4 Hypocalcemia (Acute) E83.51 Hypokalemia (Acute) E87.6 Hypomagnesemia (Acute) E83.42 Hypophosphatemia (Acute) E83.39 Ileus (Acute) K56.7 Leukocytosis (Acute) D72.829 Multiple sclerosis (Acute) G35 Seizure disorder (Acute) G40.909 Sinus bradycardia (Acute) R00.1 Nutritional Asmnt/Malnutr-PDOC - Dietary Evaluation Malnutrition Findings (Please click <Entered> for more info): Nutritional Asmnt/Malnutrition Start: 01/08/17 12: 55 Text: Status: Complete Freq: Document 01/08/17 12:56 GSUN (Rec: 01/08/17 13:16 GSUN [id number]) Nutritional Asmnt/Malnutrition Patient General Information Nutritional Screening Consult Diagnosis ALOC, acute MS exacerbation Pertinent Medical Hx/Surgical Hx Dementia, multiple sclerosis, constipation Subjective Information 76 year old male from SNF. RD consult for laura Huntley. Per RN notes, facial twitching on adm, currently NPO with swallow eval pending. Pt was awake during visit, followed RD with eyes, did not provide any information. Mild wasting to chest noted, loose skin to arms. Current Diet Order/ Nutrition Support NPO Pertinent Medications Vitamin C, Oscal W/Vitamin D, Vitamin B12, D5-0.45ns, Dulcolax, Colace Pertinent Labs 01/08: reviewed. Glucose 148H Nutritional Hx/Data Height 1.85 m Height (Calculated Centimeters) 185.4 Current Weight (lbs) 69.49 kg Weight (Calculated Kilograms) 69.5 Weight (Calculated Grams) 17008.4 [place] Body Weight 184 Weight Status Approriate GI Symptoms Usual diet at home [place] [facility]: pureed, large portion lunch and dinner, 4oz house supplement Skin Integrity/Comment: Audi 12. Pressure area r foot and upper back, abrasion l knee and r leg Estimated Nutritional Goals BEE in Kcals: Using Current wt Calories/Kcals/Kg IBW 184lb/83.6kg with consideration skin integrity and BMI Kcals Calculated 2090-2508kcal (25-30kcal/kg) Protein: Using Current wt Protein Calculated 84-109g (1-1.3g/kg) Fluid: ml 2090-2508ml (1ml/kcal) Nutritional Problem 2. Problem Problem Increased prot needs related to Etiology skin integrity aeb Signs/Symptoms: park interpreter: pressure area to right foot and upper back, abrasion ro left knee and right lower leg 1. 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 Recommend regular diet, diet texture per swallow eval (pending). SNF order pureed. Expected Outcomes/Goals Expected Outcomes/Goals 1. PO intake to meet at least 75% of estimated nutritional needs.
[2017-01-26] MEDS: D5-0.9NS w/KCL 20mEq 1,000 ML IV SCH (13:29)
--- NOTE | 2017-01-27 00:24 | Progress Notes ---
DATE: 01/26/2017 PROBLEM LIST: 1. Respiratory failure postoperatively. 2. Underlying history of multiple gastrointestinal issues. SYMPTOMS: The patient looks slight more awake, alert, though not comprehending all the conversation very attentively. PHYSICAL EXAMINATION: VITAL SIGNS: Temperature is 98, blood pressure is 96/100, saturation is 100% on 30% of oxygen. NECK: Veins not visualized. CHEST: Shows diminished air entry with occasional rhonchi. HEART: Regular. ABDOMEN: Surgical scar with colostomy tube. LABORATORY DATA: White count of 16.8, hemoglobin 7.5, pO2 of 102 on 30% on PEEP of 4 with pressure support of 15. Electrolytes are okay. ASSESSMENT: The patient clinically seemingly doing better, improving. PLANS AND SUGGESTIONS: We will drop down backup rate to 6 and see how he does and continue rest of the treatment. Care and plan discussed with patient's daughter at the bedside. JOB# [id number]
[2017-01-27] MEDS: Albuterol/Ipratropium Neb 3 ML AERS HHN SCH ×6 (03:35→22:37)
[2017-01-27 04:51] LABS: HEMATOCRIT 28.5 % (41.0-60); HEMOGLOBIN 9.8 gm/dL (12-16); MEAN CORPUSCULAR HEMOGLOBIN 32.5 pg (27.0-31.0); MEAN CORPUSCULAR HGB CONC 34.2 pg (28.0-36.0); MEAN PLATELET VOLUME 7.9 fl; NEUTROPHILE ABSOLUTE 12.6 Th/cmm (1.8-8.0); PLATELET COUNT 190 Th/cmm (150-400); RED CELL DISTRIBUTION WIDTH 13.6 % (11.5-20.0)
[2017-01-27] MEDS: Metoclopramide 5 mg/mL 2mL Vial IVP SCH ×2 (04:54→14:00)
[2017-01-27 05:06] LABS: ANION GAP 8.8 (7.0-16.0); BUN - UREA NITROGEN 16 mg/dL (7-25); BUN/CREATININE RATIO 26.7; CARBON DIOXIDE 24.6 mEq/L (21.0-31.0); CHLORIDE 104 mEq/L (98-107); CREATININE - SERUM 0.6 mg/dL (0.7-1.3); GLUCOSE 140 mg/dL (70-105); MAGNESIUM 1.7 mg/dL (1.9-2.7); POTASSIUM SERUM 3.4 mEq/L (3.5-5.1); SODIUM SERUM 134 mEq/L (136-145)
[2017-01-27 05:25] LABS: WHITE BLOOD COUNT 13.7 Th/cmm (4.8-10.8)
[2017-01-27 05:50] LABS: NEUTROPHILS 87 % (40-80); TOTAL CELLS COUNTED 100
[2017-01-27 05:51] LABS: BAND NEUTROPHILE 6 % (0-10); BASOPHIL 0 % (0-3); EOSINOPHIL 0 % (0-5); PLATELET ESTIMATE ADEQUATE (NORMAL); PLATELET MORPHOLOGY NORMAL (NORMAL)
[2017-01-27] MEDS: INSULIN ASPART SLIDING SCALE 100 UNITS/ML UNIT SUBQ SCH ×4 (06:46→22:59)
--- NOTE | 2017-01-27 07:06 | General Progress Note ---
Subjective - Review of Systems Service Date: 01/27/17 Subjective: S/p total Colectomy with diverting colostomy. Awake, alert, no acute distress. off vasopressor. on mechanical vent. WBC's elevated at 13K but improving. Objective - Results Result Diagrams: 01/27/17 04:20 01/27/17 04:20 Recent Labs: Laboratory Last Values WBC 13.7 Th/cmm (4.8-10.8) H 01/27/17 04:20 RBC 3.00 Mil/cmm (3.80-5.80) L 01/27/17 04:20 Hgb 9.8 gm/dL (12-16) L 01/27/17 04:20 Hct 28.5 % (41.0-60) L 01/27/17 04:20 MCV 95.0 fl (80-99) 01/27/17 04:20 MCH 32.5 pg (27.0-31.0) H 01/27/17 04:20 MCHC Differential 34.2 pg (28.0-36.0) 01/27/17 04:20 RDW 13.6 % (11.5-20.0) 01/27/17 04:20 Plt Count 190 Th/cmm (150-400) 01/27/17 04:20 MPV 7.9 fl 01/27/17 04:20 Neutrophils % 88.5 % (40.0-80.0) H 01/26/17 06:55 Band Neutrophils % 6 % (0-10) 01/27/17 04:20 Lymphocytes % 4.3 % (20.0-50.0) L 01/26/17 06:55 Monocytes % 6.9 % (2.0-10.0) 01/26/17 06:55 Eosinophils % 0.3 % (0.0-5.0) 01/26/17 06:55 Basophils % 0.0 % (0.0-2.0) 01/26/17 06:55 Neutrophils (Manual) 87 % (40-80) H 01/27/17 04:20 Lymphocytes 2 % (20-50) L 01/27/17 04:20 Monocytes 5 % (2-10) 01/27/17 04:20 Eosinophils 0 % (0-5) 01/27/17 04:20 Basophils 0 % (0-3) 01/27/17 04:20 Platelet Estimate ADEQUATE (NORMAL) 01/27/17 04:20 Platelet Morphology NORMAL (NORMAL) 01/27/17 04:20 Anisocytosis 1+ 01/06/17 12:32 RBC Morph Micro Appear NORMAL (NORMAL) 01/27/17 04:20 PT 11.9 SECONDS (9.5-11.5) H 01/23/17 05:40 INR 1.13 (0.5-1.4) 01/23/17 05:40 PTT (Actin FS) 24.1 SECONDS (26.0-38.0) L 01/23/17 05:40 Specimen Source Arterial 01/26/17 08:50 Sample Site Right Radial 01/26/17 08:50 pH 7.52 (7.35-7.45) H 01/26/17 08:50 pCO2 35.0 mmHg (35.0-45.0) 01/26/17 08:50 pO2 102.0 mmHg (80.0-100.0) H 01/26/17 08:50 HCO3 29.4 mEq/L (20.0-26.0) H 01/26/17 08:50 Base Excess 5.7 mEq/L (-3.0-3.0) H 01/26/17 08:50 O2 Saturation 98.0 % (92.0-100.0) 01/26/17 08:50 Juanjo Test YES 01/26/17 08:50 Vent Rate 10 01/26/17 08:50 Inspired O2 30 01/26/17 08:50 Tidal Volume 500 01/26/17 08:50 PEEP 4 01/26/17 08:50 Pressure (ins/psv/peep) 15 01/26/17 08:50 Critical Value E.VAZQUEZ 01/26/17 08:50 Sodium 134 mEq/L (136-145) L 01/27/17 04:20 Potassium 3.4 mEq/L (3.5-5.1) L 01/27/17 04:20 Chloride 104 mEq/L (98-107) 01/27/17 04:20 Carbon Dioxide 24.6 mEq/L (21.0-31.0) 01/27/17 04:20 Anion Gap 8.8 (7.0-16.0) 01/27/17 04:20 BUN 16 mg/dL (7-25) 01/27/17 04:20 Creatinine 0.6 mg/dL (0.7-1.3) L 01/27/17 04:20 Est GFR ( Amer) TNP 01/27/17 04:20 Est GFR (Non-Af Amer) TNP 01/27/17 04:20 BUN/Creatinine Ratio 26.7 01/27/17 04:20 Glucose 140 mg/dL (70-105) H 01/27/17 04:20 POC Glucose 110 MG/DL (70 - 105) H 01/27/17 06:45 Hemoglobin A1c % 5.7 % (4.0-6.0) 01/14/17 09:07 Whole Bld Lactic Acid 0.95 mmol/L (0.60-1.99) 01/06/17 10:53 Calcium 8.0 mg/dL (8.6-10.3) L 01/27/17 04:20 Phosphorus 2.2 mg/dL (2.5-5.0) L 01/16/17 05:00 Magnesium 1.7 mg/dL (1.9-2.7) L 01/27/17 04:20 Total Bilirubin 1.0 mg/dL (0.3-1.0) 01/25/17 07:05 AST 21 U/L (13-39) 01/25/17 07:05 ALT 22 U/L (7-52) 01/25/17 07:05 Alkaline Phosphatase 42 U/L (34-104) 01/25/17 07:05 Creatine Kinase 52 U/L (30-223) 01/06/17 10:50 B-Natriuretic Peptide 189.0 pg/mL (5.0-100.0) H 01/18/17 05:37 Total Protein 4.7 gm/dL (6.0-8.3) L 01/25/17 07:05 Albumin 2.7 gm/dL (4.2-5.5) L 01/25/17 07:05 Globulin 2.0 gm/dL 01/25/17 07:05 Albumin/Globulin Ratio 1.4 (1.0-1.8) 01/25/17 07:05 Triglycerides 343 mg/dL (<150) H 01/11/17 09:15 Cholesterol 163 mg/dL (<200) 01/11/17 09:15 LDL Cholesterol Direct 82 mg/dL (75-193) 01/11/17 09:15 HDL Cholesterol 46 mg/dL (23-92) 01/11/17 09:15 TSH 2.29 uIU/ml (0.34-5.60) 01/25/17 07:05 PTH Intact 31 pg/mL (15-65) 01/06/17 12:09 Urine Source RAE PORT 01/15/17 14:00 Urine Color YELLOW 01/15/17 14:00 Urine Clarity SLIGHT CLOUDY (CLEAR) 01/15/17 14:00 Urine pH 6.0 (4.6 - 8.0) 01/15/17 14:00 Ur Specific [place] 1.020 (1.005-1.030) 01/15/17 14:00 Urine Protein NEGATIVE mg/dL (NEGATIVE) 01/15/17 14:00 Urine Glucose (UA) >=1000 mg/dL (NEGATIVE) H 01/15/17 14:00 Urine Ketones NEGATIVE mg/dL (NEGATIVE) 01/15/17 14:00 Urine Blood MODERATE (NEGATIVE) H 01/15/17 14:00 Urine Nitrate NEGATIVE (NEGATIVE) 01/15/17 14:00 Urine Bilirubin NEGATIVE (NEGATIVE) 01/15/17 14:00 Urine Urobilinogen 0.2 E.U./dL (0.2 - 1.0) 01/15/17 14:00 Ur Leukocyte Esterase NEGATIVE (NEGATIVE) 01/15/17 14:00 Urine RBC 10-25 /hpf (0-5) H 01/15/17 14:00 Urine WBC 2-5 /hpf (0-5) H 01/15/17 14:00 Ur Epithelial Cells FEW /lpf (FEW) 01/15/17 14:00 Amorphous Sediment MODERATE URATES (NONE SEEN) 01/11/17 16:00 Urine Bacteria FEW /hpf (NONE SEEN) 01/15/17 14:00 Fine Granular Casts 0-2 /lpf (NONE SEEN) H 01/11/17 16:00 Urine Mucus FEW /lpf (FEW) 01/15/17 14:00 Urine Yeast FEW /hpf (NONE SEEN) H 01/11/17 16:00 Gentamicin Peak 11.0 ug/ml (4.0-8.0) H 01/24/17 15:52 Gentamicin Trough 0.9 ug/ml (0.2-2.0) 01/24/17 12:55 Vancomycin Trough 7.3 ug/mL (10-20) L 01/14/17 08:05 Blood Type O POSITIVE 01/23/17 05:40 Antibody Screen NEGATIVE 01/23/17 05:40 - Physical Exam Vitals and I&O: Vital Signs Temp 98 F 01/27/17 04:00 Pulse 80 01/27/17 06:00 Resp 15 01/27/17 06:00 BP 106/59 01/27/17 06:00 Pulse Ox 100 01/27/17 06:00 Intake & Output 01/26/17 01/27/17 01/27/17 18:59 06:59 18:59 Intake Total 410.833 400 Output Total 1380 1230 Balance -969.167 -830 Weight (lbs) 53.977 kg 53.524 kg Intake: Intake, IV Amount 410.833 400 D5-0.9NS w/KCL 20mEq 1, 310.833 000 ml @ 50 mls/hr IV . Q20H [facility] Rx#:[id number] Levetiracetam 500mg/100mL 200 500 mg In 100 ml @ 400 mls/hr IV Q12HR@0900,2100 [facility] Rx#:[id number] Piperacillin Sodium/ 100 200 Tazobact 4.5 gm In Sodium Chloride 0.9% 100 ml @ 100 mls/hr IV Q8HR [facility] Rx #:[id number] Output: Gastric Drainage 910 Drainage 180 80 Right Lower Abdomen 180 80 Urine 350 240 Other 850 Other: # Bowel Movements 0 Active Medications: Current Medications Acetaminophen (Tylenol 650mg Supp) 650 mg RC Q4H PRN PRN Reason: Fever > 101 Stop: 03/10/17 13:04 Last Admin: 01/12/17 03:37 Dose: 650 mg Albuterol/Ipratropium (Duoneb Neb) 3 ml HHN Q4HRT LIZY Stop: 03/11/17 14:59 Last Admin: 01/27/17 03:35 Dose: 3 ml Albuterol/Ipratropium (Duoneb Neb) 3 ml HHN Q2HRT PRN PRN Reason: Wheezing Stop: 03/11/17 13:46 Albuterol/Ipratropium (Duoneb Neb) 3 ml HHN [id number] [facility] Stop: 03/25/17 14:59 Artificial Tears (Artificial Tears Ophth Soln) 1 drop EACH EYE BID LIYZ Stop: 03/08/17 08:59 Last Admin: 01/26/17 17:08 Dose: 1 drop Ascorbic Acid (Vitamin C) 500 mg PO DAILY LIZY Stop: 03/08/17 08:59 Last Admin: 01/26/17 09:08 Dose: Not Given Aspirin (Aspirin Chewable) 81 mg PO DAILY LIZY Stop: 03/13/17 08:59 Last Admin: 01/26/17 09:08 Dose: Not Given Atorvastatin Calcium (Lipitor) 20 mg PO DAILY LIZY PRN Reason: Protocol Stop: 03/12/17 16:29 Last Admin: 01/26/17 09:08 Dose: Not Given Atropine Sulfate (Atropine Syringe) 1 mg IVP Q4HR PRN PRN Reason: HR BELOW 40 Stop: 03/09/17 08:32 Last Admin: 01/09/17 01:00 Dose: 1 mg Bisacodyl (Dulcolax 10 Mg Supp) 10 mg RC HS [facility] Stop: 03/14/17 20:59 Last Admin: 01/26/17 21:29 Dose: 10 mg Budesonide (Pulmicort) 0.5 mg HHN BIDRT LIZY Stop: 03/25/17 18:59 Last Admin: 01/26/17 19:21 Dose: 0.5 mg Calcium/Vitamin D (Oscal W/Vitamin D) 1 tab PO DAILY LIZY Stop: 03/08/17 08:59 Last Admin: 01/26/17 09:09 Dose: Not Given Chlorhexidine Gluconate (Peridex) 15 ml MM 0800,1999 [facility] Stop: 03/24/17 19:59 Last Admin: 01/26/17 20:48 Dose: 15 ml Cyanocobalamin (Vitamin B12) 500 mcg PO DAILY [facility] Stop: 03/08/17 08:59 Last Admin: 01/26/17 09:09 Dose: Not Given Diltiazem HCl (Cardizem) 20 mg IVP Q4HR PRN PRN Reason: FOR HR>130 Stop: 03/13/17 03:53 Last Admin: 01/12/17 20:50 Dose: 20 mg Docusate Sodium (Colace) 100 mg PO DAILY LIZY Stop: 03/08/17 08:59 Last Admin: 01/26/17 09:10 Dose: Not Given Levetiracetam (Keppra Pb) 500 mg in 100 mls @ 400 mls/hr IV Q12HR@0900,2100 [facility] Stop: 03/13/17 10:29 Last Infusion: 01/26/17 20:56 Dose: Infused Norepinephrine Bitartrate 4 mg (/ Dextrose) 254 mls @ 11.43 mls/hr IV TITR PRN ; Protocol; 3 MCG/MIN PRN Reason: BP MAINTENANCE (PER PROTOCOL) Stop: 03/25/17 00:15 Last Admin: 01/25/17 08:47 Dose: 3 mcg/min, 11.43 mls/hr Piperacillin Sod/Tazobactam (Sod 4.5 gm/ Sodium Chloride) 100 mls @ 100 mls/hr IV Q8HR LIZY Stop: 03/25/17 20:59 Last Infusion: 01/27/17 05:54 Dose: Infused Potassium Chloride/Dextrose/Sod Cl (D5-0.9ns W/40 Meq Kcl) 1,000 mls @ 50 mls/ hr IV .Q20H [facility] Stop: 03/28/17 06:56 Magnesium Sulfate 1 gm/ Sodium (Chloride) 52 mls @ 52 mls/hr IV X1 ONE Stop: 01/27/17 08:00 Insulin Aspart (Novolog Insulin Sliding Scale) 2 - 12 units SUBQ ACHS LIZY PRN Reason: Protocol Stop: 03/16/17 20:59 Last Admin: 01/27/17 06:46 Dose: Not Given Lorazepam (Ativan) 1 mg IVP Q4HR PRN; Protocol PRN Reason: Seizure Stop: 03/15/17 09:07 Last Admin: 01/23/17 15:05 Dose: 1 mg Methylprednisolone Sodium Succinate (Solu-Medrol) 20 mg IVP Q12HR [facility] Stop: 03/19/17 15:43 Last Admin: 01/26/17 20:40 Dose: 20 mg Metoclopramide HCl (Reglan) 10 mg IVP Q8HR LIZY Stop: 03/26/17 12:59 Last Admin: 01/27/17 04:54 Dose: 10 mg Mineral Oil (Fleet Mineral Oil) 135 ml RC DAILY PRN PRN Reason: CONSTIPATION Stop: 03/13/17 12:59 Last Admin: 01/14/17 10:49 Dose: 135 ml Mineral Oil (Mineral Oil 30 Ml) 30 ml NG Q6HR LIZY Stop: 03/15/17 11:59 Last Admin: 01/27/17 06:47 Dose: Not Given Miscellaneous (Vte Chemical Prophylaxis Screen/ Admission) 1 ea MC PRN PRN PRN Reason: PROTOCOL Stop: 03/08/17 11:10 Miscellaneous (Probiotic Screen) 1 ea MC PRN PRN PRN Reason: PROTOCOL Stop: 03/13/17 13:54 Morphine Sulfate (Morphine) 2 mg IM Q4HR PRN PRN Reason: Pain (Moderate) Stop: 03/24/17 17:05 Ondansetron HCl (Zofran) 4 mg IV UD PRN PRN Reason: Nausea / Vomiting Stop: 03/24/17 11:30 Polyethylene Glycol (Miralax) 17 gm PO BID LIZY Stop: 03/14/17 16:59 Last Admin: 01/26/17 17:05 Dose: Not Given Potassium Chloride (Klor-Con) 20 meq PO DAILY LIZY Stop: 03/08/17 08:59 Last Admin: 01/26/17 09:13 Dose: Not Given General: Alert, No acute distress HEENT: Atraumatic, PERRLA, EOMI Neck: Supple Cardiovascular: Regular rate, Normal S1, Normal S2 Lungs: Other (wheezing,) Abdomen: Bowel sounds, Distended, Other (non tender, no guarding, no rebound) Extremities: no Clubbing, no Cyanosis, no Edema - Procedures Procedures: Procedures Procedure Code Date BYPASS ILEUM TO CUTANEOUS, OPEN APPROACH [id number] 01/06/17 REMOVAL OF COLON 88823 01/06/17 REMOVAL OF GALLBLADDER 72560 01/06/17 RESECTION OF GALLBLADDER, OPEN APPROACH [id number] 01/06/17 RESECTION OF LARGE INTESTINE, OPEN APPROACH [id number] 01/06/17 RESPIRATORY VENTILATION, 24-96 CONSECUTIVE HOURS [id number] 01/06/17 Assessment/Plan - Problem List Patient Problems: All Active Problems Constipation (Acute) K59.00 Dementia (Acute) F03.90 Facial twitching (Acute) G51.4 Hypocalcemia (Acute) E83.51 Hypokalemia (Acute) E87.6 Hypomagnesemia (Acute) E83.42 Hypophosphatemia (Acute) E83.39 Ileus (Acute) K56.7 Leukocytosis (Acute) D72.829 Multiple sclerosis (Acute) G35 Seizure disorder (Acute) G40.909 Sinus bradycardia (Acute) R00.1 - Assessment Assessment: ALOC ... improved. CT head NAD, CT carotid no significant stenosis. hypotensive ... improved. will continue IV fluid support. hypernatremia Na 156+ hypokalemia ... will change fluids to D5 1/2NS @ 75cc/hr. add KCL to fluids. . Electrolyte imbalance ... will continue to monitor daily and correct as needed. 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 for carotid duplex, results pending. Leukocytosis improved ... continue Vancomycin IV and Zosyn IV per pharmacy. MS acute exacerbation ... stable. Patient to continue steroids IV. Ileus vs SBO .... keep NPO. continue IV fluids. will order KUB for today. cardiac arrhythmia ... continue anti-arrythmics per Cardiology Seizure disorder ... on Keppra UTI +Pseudomonas ... continue current IV antibiotics. Hyperglycemia ... will decrease solumedrol. dc D5W. - Plan Plan: Acute respiratory failure ... pulmonary consult for vent support. toxic megacolon s/p total colectomy ... TPN ? hypocalcemia ... will order Calcium supplements Leukocytosis ... will continue IV antibiotics per ID. Electrolyte imbalance ... will continue to monitor daily and correct as needed. CVA per MRI head ... management per Dr. Franklin. patient on Heparin drip. for carotid duplex. MS acute exacerbation ... stable. on low dose steroids. hypomagnesemia ... will order Mg supplements hypokalemia ... will add K+ to IV fluids. Nutritional Asmnt/Malnutr-PDOC - Dietary Evaluation Malnutrition Findings (Please click <Entered> for more info): Nutritional Asmnt/Malnutrition Start: 01/08/17 12: 55 Text: Status: Complete Freq: Document 01/08/17 12:56 GSUN (Rec: 01/08/17 13:16 GSUN [id number]) Nutritional Asmnt/Malnutrition Patient General Information Nutritional Screening Consult Diagnosis ALOC, acute MS exacerbation Pertinent Medical Hx/Surgical Hx Dementia, multiple sclerosis, constipation Subjective Information 76 year old male from SNF. RD consult for laura Huntley. Per RN notes, facial twitching on adm, currently NPO with swallow eval pending. Pt was awake during visit, followed RD with eyes, did not provide any information. Mild wasting to chest noted, loose skin to arms. Current Diet Order/ Nutrition Support NPO Pertinent Medications Vitamin C, Oscal W/Vitamin D, Vitamin B12, D5-0.45ns, Dulcolax, Colace Pertinent Labs 01/08: reviewed. Glucose 148H Nutritional Hx/Data Height 1.85 m Height (Calculated Centimeters) 185.4 Current Weight (lbs) 69.49 kg Weight (Calculated Kilograms) 69.5 Weight (Calculated Grams) 32903.4 [place] Body Weight 184 Weight Status Approriate GI Symptoms Usual diet at home [facility]: pureed, large portion lunch and dinner, 4oz house supplement Skin Integrity/Comment: Audi 12. Pressure area r foot and upper back, abrasion l knee and r leg Estimated Nutritional Goals BEE in Kcals: Using Current wt Calories/Kcals/Kg IBW 184lb/83.6kg with consideration skin integrity and BMI Kcals Calculated 2090-2508kcal (25-30kcal/kg) Protein: Using Current wt Protein Calculated 84-109g (1-1.3g/kg) Fluid: ml 2090-2508ml (1ml/kcal) Nutritional Problem 2. Problem Problem Increased prot needs related to Etiology skin integrity aeb Signs/Symptoms: nurse practitioner home assessments: pressure area to right foot and upper back, abrasion ro left knee and right lower leg 1. 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 Recommend regular diet, diet texture per swallow eval (pending). SNF order pureed. Expected Outcomes/Goals Expected Outcomes/Goals 1. PO intake to meet at least 75% of estimated nutritional needs.
[2017-01-27] MEDS: Budesonide 0.5 Mg/2 mL Ud HHN SCH ×2 (07:21→18:56)
[2017-01-27] MEDS: Chlorhexidine Gluconate 0.12% 15mL Mouthwash MM SCH ×2 (08:00→21:00)
[2017-01-27] MEDS: D5-0.9NS w/40 mEq KCL 1,000 ML IV SCH (08:45)
[2017-01-27 08:57] LABS: ABG SOURCE Arterial; BE(B) 2.8 mEq/L (-3.0-3.0); HCO3 27.1 mEq/L (20.0-26.0); pH 7.48 (7.35-7.45)
[2017-01-27 08:58] LABS: ALLEN TEST YES; CRITICAL VALUES REPORTED BY SH; FIO2 30; MECH RATE 4; MECH VT 500; PS 15
[2017-01-27] MEDS: Multivitamin w/ Minerals Tab PO SCH (09:00)
[2017-01-27] MEDS: Polyvinyl Alcohol Ophth Soln 15 mL Bottle EACH EYE SCH ×2 (09:00→16:44)
[2017-01-27] MEDS: POLYETHYLENE GLYCOL 3350 17 GM PACK PO SCH ×2 (09:00→17:00)
[2017-01-27] MEDS: Levetiracetam 500mg/100mL 500 MG/100 ML BAG IV SCH (09:00)
[2017-01-27] MEDS: methylPREDNISolone SS 40 mg Vial IVP SCH (10:00)
--- NOTE | 2017-01-27 10:05 | Diagnostic Imaging Report ---
Exam: Portable examination of chest. HISTORY: Shortness of breath. Findings: Portable examination of the chest at 0800 hours reviewed the study compared to prior day earlier The study demonstrates endotracheal tube 3 cm above the tisha. Mediastinal structures midline the heart is not enlarged. The costophrenic angles are clear. There is evidence for mild congestion. Distention of small and large bowel loops is appreciated. The NG tube is in stomach. Right jugular catheter is noted in superior vena cava. Atelectatic changes in the right minor fissure appreciated. IMPRESSION: Mild congestion. Atelectasis right minor fissure the Extensive distention of small bowel loops. CT examination of the abdomen is recommended, small bowel obstruction cannot be excluded. IMPRESSION:
--- NOTE | 2017-01-27 11:13 | General Progress Note ---
Subjective - Review of Systems Service Date: 01/27/17 Events since last encounter: labs ok possible extubation today Objective - Results Result Diagrams: 01/27/17 04:20 01/27/17 04:20 Recent Labs: Laboratory Last Values WBC 13.7 Th/cmm (4.8-10.8) H 01/27/17 04:20 RBC 3.00 Mil/cmm (3.80-5.80) L 01/27/17 04:20 Hgb 9.8 gm/dL (12-16) L 01/27/17 04:20 Hct 28.5 % (41.0-60) L 01/27/17 04:20 MCV 95.0 fl (80-99) 01/27/17 04:20 MCH 32.5 pg (27.0-31.0) H 01/27/17 04:20 MCHC Differential 34.2 pg (28.0-36.0) 01/27/17 04:20 RDW 13.6 % (11.5-20.0) 01/27/17 04:20 Plt Count 190 Th/cmm (150-400) 01/27/17 04:20 MPV 7.9 fl 01/27/17 04:20 Neutrophils % 88.5 % (40.0-80.0) H 01/26/17 06:55 Band Neutrophils % 6 % (0-10) 01/27/17 04:20 Lymphocytes % 4.3 % (20.0-50.0) L 01/26/17 06:55 Monocytes % 6.9 % (2.0-10.0) 01/26/17 06:55 Eosinophils % 0.3 % (0.0-5.0) 01/26/17 06:55 Basophils % 0.0 % (0.0-2.0) 01/26/17 06:55 Neutrophils (Manual) 87 % (40-80) H 01/27/17 04:20 Lymphocytes 2 % (20-50) L 01/27/17 04:20 Monocytes 5 % (2-10) 01/27/17 04:20 Eosinophils 0 % (0-5) 01/27/17 04:20 Basophils 0 % (0-3) 01/27/17 04:20 Platelet Estimate ADEQUATE (NORMAL) 01/27/17 04:20 Platelet Morphology NORMAL (NORMAL) 01/27/17 04:20 Anisocytosis 1+ 01/06/17 12:32 RBC Morph Micro Appear NORMAL (NORMAL) 01/27/17 04:20 PT 11.9 SECONDS (9.5-11.5) H 01/23/17 05:40 INR 1.13 (0.5-1.4) 01/23/17 05:40 PTT (Actin FS) 24.1 SECONDS (26.0-38.0) L 01/23/17 05:40 Specimen Source Arterial 01/27/17 08:00 Sample Site Right Radial 01/27/17 08:00 pH 7.48 (7.35-7.45) H 01/27/17 08:00 pCO2 35.0 mmHg (35.0-45.0) 01/27/17 08:00 pO2 92.0 mmHg (80.0-100.0) 01/27/17 08:00 HCO3 27.1 mEq/L (20.0-26.0) H 01/27/17 08:00 Base Excess 2.8 mEq/L (-3.0-3.0) 01/27/17 08:00 O2 Saturation 98.0 % (92.0-100.0) 01/27/17 08:00 Juanjo Test YES 01/27/17 08:00 Vent Rate 4 01/27/17 08:00 Inspired O2 30 01/27/17 08:00 Tidal Volume 500 01/27/17 08:00 PEEP 4 01/27/17 08:00 Pressure (ins/psv/peep) 15 01/27/17 08:00 Critical Value SH 01/27/17 08:00 Sodium 134 mEq/L (136-145) L 01/27/17 04:20 Potassium 3.4 mEq/L (3.5-5.1) L 01/27/17 04:20 Chloride 104 mEq/L (98-107) 01/27/17 04:20 Carbon Dioxide 24.6 mEq/L (21.0-31.0) 01/27/17 04:20 Anion Gap 8.8 (7.0-16.0) 01/27/17 04:20 BUN 16 mg/dL (7-25) 01/27/17 04:20 Creatinine 0.6 mg/dL (0.7-1.3) L 01/27/17 04:20 Est GFR ( Amer) TNP 01/27/17 04:20 Est GFR (Non-Af Amer) TNP 01/27/17 04:20 BUN/Creatinine Ratio 26.7 01/27/17 04:20 Glucose 140 mg/dL (70-105) H 01/27/17 04:20 POC Glucose 110 MG/DL (70 - 105) H 01/27/17 06:45 Hemoglobin A1c % 5.7 % (4.0-6.0) 01/14/17 09:07 Whole Bld Lactic Acid 0.95 mmol/L (0.60-1.99) 01/06/17 10:53 Calcium 8.0 mg/dL (8.6-10.3) L 01/27/17 04:20 Phosphorus 2.2 mg/dL (2.5-5.0) L 01/16/17 05:00 Magnesium 1.7 mg/dL (1.9-2.7) L 01/27/17 04:20 Total Bilirubin 1.0 mg/dL (0.3-1.0) 01/25/17 07:05 AST 21 U/L (13-39) 01/25/17 07:05 ALT 22 U/L (7-52) 01/25/17 07:05 Alkaline Phosphatase 42 U/L (34-104) 01/25/17 07:05 Creatine Kinase 52 U/L (30-223) 01/06/17 10:50 B-Natriuretic Peptide 189.0 pg/mL (5.0-100.0) H 01/18/17 05:37 Total Protein 4.7 gm/dL (6.0-8.3) L 01/25/17 07:05 Albumin 2.7 gm/dL (4.2-5.5) L 01/25/17 07:05 Globulin 2.0 gm/dL 01/25/17 07:05 Albumin/Globulin Ratio 1.4 (1.0-1.8) 01/25/17 07:05 Triglycerides 343 mg/dL (<150) H 01/11/17 09:15 Cholesterol 163 mg/dL (<200) 01/11/17 09:15 LDL Cholesterol Direct 82 mg/dL (75-193) 01/11/17 09:15 HDL Cholesterol 46 mg/dL (23-92) 01/11/17 09:15 TSH 2.29 uIU/ml (0.34-5.60) 01/25/17 07:05 PTH Intact 31 pg/mL (15-65) 01/06/17 12:09 Urine Source RAE PORT 01/15/17 14:00 Urine Color YELLOW 01/15/17 14:00 Urine Clarity SLIGHT CLOUDY (CLEAR) 01/15/17 14:00 Urine pH 6.0 (4.6 - 8.0) 01/15/17 14:00 Ur Specific [place] 1.020 (1.005-1.030) 01/15/17 14:00 Urine Protein NEGATIVE mg/dL (NEGATIVE) 01/15/17 14:00 Urine Glucose (UA) >=1000 mg/dL (NEGATIVE) H 01/15/17 14:00 Urine Ketones NEGATIVE mg/dL (NEGATIVE) 01/15/17 14:00 Urine Blood MODERATE (NEGATIVE) H 01/15/17 14:00 Urine Nitrate NEGATIVE (NEGATIVE) 01/15/17 14:00 Urine Bilirubin NEGATIVE (NEGATIVE) 01/15/17 14:00 Urine Urobilinogen 0.2 E.U./dL (0.2 - 1.0) 01/15/17 14:00 Ur Leukocyte Esterase NEGATIVE (NEGATIVE) 01/15/17 14:00 Urine RBC 10-25 /hpf (0-5) H 01/15/17 14:00 Urine WBC 2-5 /hpf (0-5) H 01/15/17 14:00 Ur Epithelial Cells FEW /lpf (FEW) 01/15/17 14:00 Amorphous Sediment MODERATE URATES (NONE SEEN) 01/11/17 16:00 Urine Bacteria FEW /hpf (NONE SEEN) 01/15/17 14:00 Fine Granular Casts 0-2 /lpf (NONE SEEN) H 01/11/17 16:00 Urine Mucus FEW /lpf (FEW) 01/15/17 14:00 Urine Yeast FEW /hpf (NONE SEEN) H 01/11/17 16:00 Gentamicin Peak 11.0 ug/ml (4.0-8.0) H 01/24/17 15:52 Gentamicin Trough 0.9 ug/ml (0.2-2.0) 01/24/17 12:55 Vancomycin Trough 7.3 ug/mL (10-20) L 01/14/17 08:05 Blood Type O POSITIVE 01/23/17 05:40 Antibody Screen NEGATIVE 01/23/17 05:40 - Physical Exam Vitals and I&O: Vital Signs Temp 98 F 01/27/17 04:00 Pulse 73 01/27/17 11:08 Resp 15 01/27/17 06:00 BP 106/59 01/27/17 06:00 Pulse Ox 100 01/27/17 11:08 Intake & Output 01/26/17 01/27/17 01/27/17 18:59 06:59 18:59 Intake Total 410.833 400 Output Total 1380 1230 Balance -969.167 -830 Weight (lbs) 53.977 kg 53.524 kg Intake: Intake, IV Amount 410.833 400 D5-0.9NS w/KCL 20mEq 1, 310.833 000 ml @ 50 mls/hr IV . Q20H [facility] Rx#:[id number] Levetiracetam 500mg/100mL 200 500 mg In 100 ml @ 400 mls/hr IV Q12HR@0900,2100 [facility] Rx#:[id number] Piperacillin Sodium/ 100 200 Tazobact 4.5 gm In Sodium Chloride 0.9% 100 ml @ 100 mls/hr IV Q8HR [facility] Rx #:[id number] Output: Gastric Drainage 910 Drainage 180 80 Right Lower Abdomen 180 80 Urine 350 240 Other 850 Other: # Bowel Movements 0 Active Medications: Current Medications Acetaminophen (Tylenol 650mg Supp) 650 mg RC Q4H PRN PRN Reason: Fever > 101 Stop: 03/10/17 13:04 Last Admin: 01/12/17 03:37 Dose: 650 mg Albuterol/Ipratropium (Duoneb Neb) 3 ml HHN Q4HRT [facility] Stop: 03/11/17 14:59 Last Admin: 01/27/17 11:08 Dose: 3 ml Albuterol/Ipratropium (Duoneb Neb) 3 ml HHN Q2HRT PRN PRN Reason: Wheezing Stop: 03/11/17 13:46 Albuterol/Ipratropium (Duoneb Neb) 3 ml HHN [id number] [facility] Stop: 03/25/17 14:59 Artificial Tears (Artificial Tears Ophth Soln) 1 drop EACH EYE BID [facility] Stop: 03/08/17 08:59 Last Admin: 01/26/17 17:08 Dose: 1 drop Ascorbic Acid (Vitamin C) 500 mg PO DAILY LIZY Stop: 03/08/17 08:59 Last Admin: 01/26/17 09:08 Dose: Not Given Aspirin (Aspirin Chewable) 81 mg PO DAILY LIZY Stop: 03/13/17 08:59 Last Admin: 01/26/17 09:08 Dose: Not Given Atorvastatin Calcium (Lipitor) 20 mg PO DAILY LIZY PRN Reason: Protocol Stop: 03/12/17 16:29 Last Admin: 01/26/17 09:08 Dose: Not Given Atropine Sulfate (Atropine Syringe) 1 mg IVP Q4HR PRN PRN Reason: HR BELOW 40 Stop: 03/09/17 08:32 Last Admin: 01/09/17 01:00 Dose: 1 mg Bisacodyl (Dulcolax 10 Mg Supp) 10 mg RC HS [facility] Stop: 03/14/17 20:59 Last Admin: 01/26/17 21:29 Dose: 10 mg Budesonide (Pulmicort) 0.5 mg HHN BIDRT [facility] Stop: 03/25/17 18:59 Last Admin: 01/27/17 07:21 Dose: 0.5 mg Calcium/Vitamin D (Oscal W/Vitamin D) 1 tab PO DAILY LIZY Stop: 03/08/17 08:59 Last Admin: 01/26/17 09:09 Dose: Not Given Chlorhexidine Gluconate (Peridex) 15 ml MM 0800,2000 [facility] Stop: 03/24/17 19:59 Last Admin: 01/26/17 20:48 Dose: 15 ml Cyanocobalamin (Vitamin B12) 500 mcg PO DAILY [facility] Stop: 03/08/17 08:59 Last Admin: 01/26/17 09:09 Dose: Not Given Diltiazem HCl (Cardizem) 20 mg IVP Q4HR PRN PRN Reason: FOR HR>130 Stop: 03/13/17 03:53 Last Admin: 01/12/17 20:50 Dose: 20 mg Docusate Sodium (Colace) 100 mg PO DAILY [facility] Stop: 03/08/17 08:59 Last Admin: 01/26/17 09:10 Dose: Not Given Levetiracetam (Keppra Pb) 500 mg in 100 mls @ 400 mls/hr IV Q12HR@0900,2100 [facility] Stop: 03/13/17 10:29 Last Infusion: 01/26/17 20:56 Dose: Infused Norepinephrine Bitartrate 4 mg (/ Dextrose) 254 mls @ 11.43 mls/hr IV TITR PRN ; Protocol; 3 MCG/MIN PRN Reason: BP MAINTENANCE (PER PROTOCOL) Stop: 03/25/17 00:15 Last Admin: 01/25/17 08:47 Dose: 3 mcg/min, 11.43 mls/hr Piperacillin Sod/Tazobactam (Sod 4.5 gm/ Sodium Chloride) 100 mls @ 100 mls/hr IV Q8HR [facility] Stop: 03/25/17 20:59 Last Infusion: 01/27/17 05:54 Dose: Infused Potassium Chloride/Dextrose/Sod Cl (D5-0.9ns W/40 Meq Kcl) 1,000 mls @ 50 mls/ hr IV .Q20H [facility] Stop: 03/28/17 06:56 Last Admin: 01/27/17 08:45 Dose: 50 mls/hr Insulin Aspart (Novolog Insulin Sliding Scale) 2 - 12 units SUBQ ACHS LIZY PRN Reason: Protocol Stop: 03/16/17 20:59 Last Admin: 01/27/17 06:46 Dose: Not Given Lorazepam (Ativan) 1 mg IVP Q4HR PRN; Protocol PRN Reason: Seizure Stop: 03/15/17 09:07 Last Admin: 01/23/17 15:05 Dose: 1 mg Methylprednisolone Sodium Succinate (Solu-Medrol) 20 mg IVP Q12HR [facility] Stop: 03/19/17 15:43 Last Admin: 01/26/17 20:40 Dose: 20 mg Metoclopramide HCl (Reglan) 10 mg IVP Q8HR [facility] Stop: 03/26/17 12:59 Last Admin: 01/27/17 04:54 Dose: 10 mg Mineral Oil (Fleet Mineral Oil) 135 ml RC DAILY PRN PRN Reason: CONSTIPATION Stop: 03/13/17 12:59 Last Admin: 01/14/17 10:49 Dose: 135 ml Mineral Oil (Mineral Oil 30 Ml) 30 ml NG Q6HR [facility] Stop: 03/15/17 11:59 Last Admin: 01/27/17 06:47 Dose: Not Given Miscellaneous (Vte Chemical Prophylaxis Screen/ Admission) 1 ea MC PRN PRN PRN Reason: PROTOCOL Stop: 03/08/17 11:10 Miscellaneous (Probiotic Screen) 1 ea MC PRN PRN PRN Reason: PROTOCOL Stop: 03/13/17 13:54 Morphine Sulfate (Morphine) 2 mg IM Q4HR PRN PRN Reason: Pain (Moderate) Stop: 03/24/17 17:05 Ondansetron HCl (Zofran) 4 mg IV UD PRN PRN Reason: Nausea / Vomiting Stop: 03/24/17 11:30 Polyethylene Glycol (Miralax) 17 gm PO BID LIZY Stop: 03/14/17 16:59 Last Admin: 01/26/17 17:05 Dose: Not Given Potassium Chloride (Klor-Con) 20 meq PO DAILY LIZY Stop: 03/08/17 08:59 Last Admin: 01/26/17 09:13 Dose: Not Given General: Alert, No acute distress HEENT: Atraumatic, PERRLA, EOMI Neck: Supple Cardiovascular: Regular rate, Normal S1, Normal S2 Lungs: Other (wheezing,) Abdomen: Bowel sounds, Distended, Other (non tender, no guarding, no rebound) Extremities: no Clubbing, no Cyanosis, no Edema - Procedures Procedures: Procedures Procedure Code Date BYPASS ILEUM TO CUTANEOUS, OPEN APPROACH [id number] 01/06/17 REMOVAL OF COLON 88976 01/06/17 REMOVAL OF GALLBLADDER 75115 01/06/17 RESECTION OF GALLBLADDER, OPEN APPROACH [id number] 01/06/17 RESECTION OF LARGE INTESTINE, OPEN APPROACH [id number] 01/06/17 RESPIRATORY VENTILATION, 24-96 CONSECUTIVE HOURS [id number] 01/06/17 Assessment/Plan - Problem List Patient Problems: All Active Problems Constipation (Acute) K59.00 Dementia (Acute) F03.90 Facial twitching (Acute) G51.4 Hypocalcemia (Acute) E83.51 Hypokalemia (Acute) E87.6 Hypomagnesemia (Acute) E83.42 Hypophosphatemia (Acute) E83.39 Ileus (Acute) K56.7 Leukocytosis (Acute) D72.829 Multiple sclerosis (Acute) G35 Seizure disorder (Acute) G40.909 Sinus bradycardia (Acute) R00.1 Nutritional Asmnt/Malnutr-PDOC - Dietary Evaluation Malnutrition Findings (Please click <Entered> for more info): Nutritional Asmnt/Malnutrition Start: 01/08/17 12: 55 Text: Status: Complete Freq: Document 01/08/17 12:56 SOLOMON (Rec: 01/08/17 13:16 [email or web address] [id number]) Nutritional Asmnt/Malnutrition Patient General Information Nutritional Screening Consult Diagnosis ALOC, acute MS exacerbation Pertinent Medical Hx/Surgical Hx Dementia, multiple sclerosis, constipation Subjective Information 76 year old male from SNF. RD consult for laura Huntley. Per RN notes, facial twitching on adm, currently NPO with swallow eval pending. Pt was awake during visit, followed RD with eyes, did not provide any information. Mild wasting to chest noted, loose skin to arms. Current Diet Order/ Nutrition Support NPO Pertinent Medications Vitamin C, Oscal W/Vitamin D, Vitamin B12, D5-0.45ns, Dulcolax, Colace Pertinent Labs 01/08: reviewed. Glucose 148H Nutritional Hx/Data Height 1.85 m Height (Calculated Centimeters) 185.4 Current Weight (lbs) 69.49 kg Weight (Calculated Kilograms) 69.5 Weight (Calculated Grams) 73430.4 [place] Body Weight 184 Weight Status Approriate GI Symptoms Usual diet at home [facility]: pureed, large portion lunch and dinner, 4oz house supplement Skin Integrity/Comment: Audi 12. Pressure area r foot and upper back, abrasion l knee and r leg Estimated Nutritional Goals BEE in Kcals: Using Current wt Calories/Kcals/Kg IBW 184lb/83.6kg with consideration skin integrity and BMI Kcals Calculated 0-2508kcal (25-30kcal/kg) Protein: Using Current wt Protein Calculated 84-109g (1-1.3g/kg) Fluid: ml 2090-2508ml (1ml/kcal) Nutritional Problem 2. 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 Recommend regular diet, diet texture per swallow eval (pending). SNF order pureed. Expected Outcomes/Goals Expected Outcomes/Goals 1. PO intake to meet at least 75% of estimated nutritional needs.
[2017-01-27] MEDS: Potassium Chloride 20 mEq ER Tab PO SCH (14:00)
[2017-01-27] MEDS: Aspirin 81mg Chewable Tab PO SCH (16:17)
[2017-01-27] MEDS: Calcium Carb/Vit D 500 mg/200 U Tab PO SCH (20:50)
[2017-01-27] MEDS: Atorvastatin Calcium 10 MG TAB PO SCH (20:50)
[2017-01-28] MEDS: Albuterol/Ipratropium Neb 3 ML AERS HHN SCH ×6 (02:11→22:13)
[2017-01-28] MEDS: D5-0.9NS w/40 mEq KCL 1,000 ML IV SCH (04:35)
[2017-01-28 05:25] LABS: HEMATOCRIT 28.5 % (41.0-60); HEMOGLOBIN 9.7 gm/dL (12-16); MEAN CELL VOLUME 95.5 fl (80-99); MEAN CORPUSCULAR HEMOGLOBIN 32.6 pg (27.0-31.0); MEAN CORPUSCULAR HGB CONC 34.2 pg (28.0-36.0); MEAN PLATELET VOLUME 7.6 fl; PLATELET COUNT 187 Th/cmm (150-400); RED BLOOD COUNT 2.98 Mil/cmm (3.80-5.80); RED CELL DISTRIBUTION WIDTH 13.5 % (11.5-20.0); WHITE BLOOD COUNT 11.5 Th/cmm (4.8-10.8)
[2017-01-28 05:47] LABS: ANION GAP 5.7 (7.0-16.0); BUN - UREA NITROGEN 14 mg/dL (7-25); CARBON DIOXIDE 28.1 mEq/L (21.0-31.0); CHLORIDE 106 mEq/L (98-107); CREATININE - SERUM 0.5 mg/dL (0.7-1.3); GLUCOSE 101 mg/dL (70-105); MAGNESIUM 1.9 mg/dL (1.9-2.7); POTASSIUM SERUM 3.8 mEq/L (3.5-5.1); SODIUM SERUM 136 mEq/L (136-145)
[2017-01-28 05:58] LABS: BAND NEUTROPHILE 1 % (0-10); NEUTROPHILS 86 % (40-80); TOTAL CELLS COUNTED 100
[2017-01-28 05:59] LABS: EOSINOPHIL 1 % (0-5)
[2017-01-28] MEDS: Metoclopramide 5 mg/mL 2mL Vial IVP SCH ×4 (06:00→21:19)
[2017-01-28] MEDS: Levetiracetam 500mg/100mL 500 MG/100 ML BAG IV SCH ×2 (06:09→21:07)
[2017-01-28] MEDS: methylPREDNISolone SS 40 mg Vial IVP SCH ×4 (06:13→21:20)
[2017-01-28] MEDS: Budesonide 0.5 Mg/2 mL Ud HHN SCH ×2 (06:42→18:37)
[2017-01-28] MEDS: INSULIN ASPART SLIDING SCALE 100 UNITS/ML UNIT SUBQ SCH ×3 (06:55→17:00)
--- NOTE | 2017-01-28 06:55 | General Progress Note ---
Subjective - Review of Systems Service Date: 01/28/17 Subjective: S/p total Colectomy with diverting colostomy. Awake, alert, no acute distress. off vasopressor. s/p extubation, WBC's decreased to 11K. Objective - Results Result Diagrams: 01/28/17 05:00 01/28/17 05:00 Recent Labs: Laboratory Last Values WBC 11.5 Th/cmm (4.8-10.8) H 01/28/17 05:00 RBC 2.98 Mil/cmm (3.80-5.80) L 01/28/17 05:00 Hgb 9.7 gm/dL (12-16) L 01/28/17 05:00 Hct 28.5 % (41.0-60) L 01/28/17 05:00 MCV 95.5 fl (80-99) 01/28/17 05:00 MCH 32.6 pg (27.0-31.0) H 01/28/17 05:00 MCHC Differential 34.2 pg (28.0-36.0) 01/28/17 05:00 RDW 13.5 % (11.5-20.0) 01/28/17 05:00 Plt Count 187 Th/cmm (150-400) 01/28/17 05:00 MPV 7.6 fl 01/28/17 05:00 Neutrophils % 88.5 % (40.0-80.0) H 01/26/17 06:55 Band Neutrophils % 1 % (0-10) 01/28/17 05:00 Lymphocytes % 4.3 % (20.0-50.0) L 01/26/17 06:55 Monocytes % 6.9 % (2.0-10.0) 01/26/17 06:55 Eosinophils % 0.3 % (0.0-5.0) 01/26/17 06:55 Basophils % 0.0 % (0.0-2.0) 01/26/17 06:55 Neutrophils (Manual) 86 % (40-80) H 01/28/17 05:00 Lymphocytes 6 % (20-50) L 01/28/17 05:00 Monocytes 6 % (2-10) 01/28/17 05:00 Eosinophils 1 % (0-5) 01/28/17 05:00 Basophils 0 % (0-3) 01/27/17 04:20 Platelet Estimate ADEQUATE (NORMAL) 01/27/17 04:20 Platelet Morphology NORMAL (NORMAL) 01/27/17 04:20 Anisocytosis 1+ 01/06/17 12:32 RBC Morph Micro Appear NORMAL (NORMAL) 01/27/17 04:20 PT 11.9 SECONDS (9.5-11.5) H 01/23/17 05:40 INR 1.13 (0.5-1.4) 01/23/17 05:40 PTT (Actin FS) 24.1 SECONDS (26.0-38.0) L 01/23/17 05:40 Specimen Source Arterial 01/27/17 08:00 Sample Site Right Radial 01/27/17 08:00 pH 7.48 (7.35-7.45) H 01/27/17 08:00 pCO2 35.0 mmHg (35.0-45.0) 01/27/17 08:00 pO2 92.0 mmHg (80.0-100.0) 01/27/17 08:00 HCO3 27.1 mEq/L (20.0-26.0) H 01/27/17 08:00 Base Excess 2.8 mEq/L (-3.0-3.0) 01/27/17 08:00 O2 Saturation 98.0 % (92.0-100.0) 01/27/17 08:00 Juanjo Test YES 01/27/17 08:00 Vent Rate 4 01/27/17 08:00 Inspired O2 30 01/27/17 08:00 Tidal Volume 500 01/27/17 08:00 PEEP 4 01/27/17 08:00 Pressure (ins/psv/peep) 15 01/27/17 08:00 Critical Value SH 01/27/17 08:00 Sodium 136 mEq/L (136-145) 01/28/17 05:00 Potassium 3.8 mEq/L (3.5-5.1) 01/28/17 05:00 Chloride 106 mEq/L (98-107) 01/28/17 05:00 Carbon Dioxide 28.1 mEq/L (21.0-31.0) 01/28/17 05:00 Anion Gap 5.7 (7.0-16.0) L 01/28/17 05:00 BUN 14 mg/dL (7-25) 01/28/17 05:00 Creatinine 0.5 mg/dL (0.7-1.3) L 01/28/17 05:00 Est GFR ( Amer) TNP 01/28/17 05:00 Est GFR (Non-Af Amer) TNP 01/28/17 05:00 BUN/Creatinine Ratio 28.0 01/28/17 05:00 Glucose 101 mg/dL (70-105) 01/28/17 05:00 POC Glucose 88 MG/DL (70 - 105) 01/28/17 06:48 Hemoglobin A1c % 5.7 % (4.0-6.0) 01/14/17 09:07 Whole Bld Lactic Acid 0.95 mmol/L (0.60-1.99) 01/06/17 10:53 Calcium 8.0 mg/dL (8.6-10.3) L 01/28/17 05:00 Phosphorus 2.2 mg/dL (2.5-5.0) L 01/16/17 05:00 Magnesium 1.9 mg/dL (1.9-2.7) 01/28/17 05:00 Total Bilirubin 1.0 mg/dL (0.3-1.0) 01/25/17 07:05 AST 21 U/L (13-39) 01/25/17 07:05 ALT 22 U/L (7-52) 01/25/17 07:05 Alkaline Phosphatase 42 U/L (34-104) 01/25/17 07:05 Creatine Kinase 52 U/L (30-223) 01/06/17 10:50 B-Natriuretic Peptide 189.0 pg/mL (5.0-100.0) H 01/18/17 05:37 Total Protein 4.7 gm/dL (6.0-8.3) L 01/25/17 07:05 Albumin 2.7 gm/dL (4.2-5.5) L 01/25/17 07:05 Globulin 2.0 gm/dL 01/25/17 07:05 Albumin/Globulin Ratio 1.4 (1.0-1.8) 01/25/17 07:05 Triglycerides 343 mg/dL (<150) H 01/11/17 09:15 Cholesterol 163 mg/dL (<200) 01/11/17 09:15 LDL Cholesterol Direct 82 mg/dL (75-193) 01/11/17 09:15 HDL Cholesterol 46 mg/dL (23-92) 01/11/17 09:15 TSH 2.29 uIU/ml (0.34-5.60) 01/25/17 07:05 PTH Intact 31 pg/mL (15-65) 01/06/17 12:09 Urine Source RAE PORT 01/15/17 14:00 Urine Color YELLOW 01/15/17 14:00 Urine Clarity SLIGHT CLOUDY (CLEAR) 01/15/17 14:00 Urine pH 6.0 (4.6 - 8.0) 01/15/17 14:00 Ur Specific Point Lay 1.020 (1.005-1.030) 01/15/17 14:00 Urine Protein NEGATIVE mg/dL (NEGATIVE) 01/15/17 14:00 Urine Glucose (UA) >=1000 mg/dL (NEGATIVE) H 01/15/17 14:00 Urine Ketones NEGATIVE mg/dL (NEGATIVE) 01/15/17 14:00 Urine Blood MODERATE (NEGATIVE) H 01/15/17 14:00 Urine Nitrate NEGATIVE (NEGATIVE) 01/15/17 14:00 Urine Bilirubin NEGATIVE (NEGATIVE) 01/15/17 14:00 Urine Urobilinogen 0.2 E.U./dL (0.2 - 1.0) 01/15/17 14:00 Ur Leukocyte Esterase NEGATIVE (NEGATIVE) 01/15/17 14:00 Urine RBC 10-25 /hpf (0-5) H 01/15/17 14:00 Urine WBC 2-5 /hpf (0-5) H 01/15/17 14:00 Ur Epithelial Cells FEW /lpf (FEW) 01/15/17 14:00 Amorphous Sediment MODERATE URATES (NONE SEEN) 01/11/17 16:00 Urine Bacteria FEW /hpf (NONE SEEN) 01/15/17 14:00 Fine Granular Casts 0-2 /lpf (NONE SEEN) H 01/11/17 16:00 Urine Mucus FEW /lpf (FEW) 01/15/17 14:00 Urine Yeast FEW /hpf (NONE SEEN) H 01/11/17 16:00 Gentamicin Peak 11.0 ug/ml (4.0-8.0) H 01/24/17 15:52 Gentamicin Trough 0.9 ug/ml (0.2-2.0) 01/24/17 12:55 Vancomycin Trough 7.3 ug/mL (10-20) L 01/14/17 08:05 Blood Type O POSITIVE 01/23/17 05:40 Antibody Screen NEGATIVE 01/23/17 05:40 - Physical Exam Vitals and I&O: Vital Signs Temp 98.2 F 01/28/17 04:00 Pulse 75 01/28/17 05:00 Resp 18 01/28/17 05:26 BP 108/73 01/28/17 05:00 Pulse Ox 100 01/28/17 05:26 Intake & Output 01/27/17 01/27/17 01/28/17 06:59 18:59 06:59 Intake Total 400 1191.667 Output Total 1230 1280 1070 Balance -830 -1280 121.667 Weight (lbs) 53.524 kg 53.524 kg 53.524 kg Intake: Intake, IV Amount 400 1191.667 D5-0.9NS w/40 mEq KCL 1, 991.667 000 ml @ 50 mls/hr IV . Q20H [facility] Rx#:[id number] Levetiracetam 500mg/100mL 200 100 500 mg In 100 ml @ 400 mls/hr IV Q12HR@0900,2100 [facility] Rx#:[id number] Piperacillin Sodium/ 200 100 Tazobact 4.5 gm In Sodium Chloride 0.9% 100 ml @ 100 mls/hr IV Q8HR [facility] Rx #:[id number] Output: Gastric Drainage 910 Drainage 80 80 1070 Ileostomy RLQ Abd 950 Right Lower Abdomen 80 80 120 Urine 240 400 Other 800 Active Medications: Current Medications Acetaminophen (Tylenol 650mg Supp) 650 mg RC Q4H PRN PRN Reason: Fever > 101 Stop: 03/10/17 13:04 Last Admin: 01/12/17 03:37 Dose: 650 mg Albuterol/Ipratropium (Duoneb Neb) 3 ml HHN Q4HRT LIZY Stop: 03/11/17 14:59 Last Admin: 01/28/17 06:41 Dose: 3 ml Albuterol/Ipratropium (Duoneb Neb) 3 ml HHN Q2HRT PRN PRN Reason: Wheezing Stop: 03/11/17 13:46 Albuterol/Ipratropium (Duoneb Neb) 3 ml HHN [id number] [facility] Stop: 03/25/17 14:59 Artificial Tears (Artificial Tears Ophth Soln) 1 drop EACH EYE BID LIZY Stop: 03/08/17 08:59 Last Admin: 01/27/17 16:44 Dose: 1 drop Ascorbic Acid (Vitamin C) 500 mg PO DAILY LIYZ Stop: 03/08/17 08:59 Last Admin: 01/27/17 16:17 Dose: Not Given Aspirin (Aspirin Chewable) 81 mg PO DAILY LIZY Stop: 03/13/17 08:59 Last Admin: 01/27/17 16:17 Dose: Not Given Atorvastatin Calcium (Lipitor) 20 mg PO DAILY LIZY PRN Reason: Protocol Stop: 03/12/17 16:29 Last Admin: 01/27/17 20:50 Dose: Not Given Atropine Sulfate (Atropine Syringe) 1 mg IVP Q4HR PRN PRN Reason: HR BELOW 40 Stop: 03/09/17 08:32 Last Admin: 01/09/17 01:00 Dose: 1 mg Bisacodyl (Dulcolax 10 Mg Supp) 10 mg RC HS [facility] Stop: 03/14/17 20:59 Last Admin: 01/27/17 21:00 Dose: Not Given Budesonide (Pulmicort) 0.5 mg HHN BIDRT LIZY Stop: 03/25/17 18:59 Last Admin: 01/28/17 06:42 Dose: 0.5 mg Calcium/Vitamin D (Oscal W/Vitamin D) 1 tab PO DAILY LIZY Stop: 03/08/17 08:59 Last Admin: 01/27/17 20:50 Dose: Not Given Chlorhexidine Gluconate (Peridex) 15 ml MM 0800,2000 [facility] Stop: 03/24/17 19:59 Last Admin: 01/27/17 21:00 Dose: 15 ml Cyanocobalamin (Vitamin B12) 500 mcg PO DAILY [facility] Stop: 03/08/17 08:59 Last Admin: 01/26/17 09:09 Dose: Not Given Diltiazem HCl (Cardizem) 20 mg IVP Q4HR PRN PRN Reason: FOR HR>130 Stop: 03/13/17 03:53 Last Admin: 01/12/17 20:50 Dose: 20 mg Docusate Sodium (Colace) 100 mg PO DAILY [facility] Stop: 03/08/17 08:59 Last Admin: 01/27/17 20:51 Dose: Not Given Levetiracetam (Keppra Pb) 500 mg in 100 mls @ 400 mls/hr IV Q12HR@0900,2100 [facility] Stop: 03/13/17 10:29 Last Admin: 01/28/17 06:09 Dose: 400 mls/hr Norepinephrine Bitartrate 4 mg (/ Dextrose) 254 mls @ 11.43 mls/hr IV TITR PRN ; Protocol; 3 MCG/MIN PRN Reason: BP MAINTENANCE (PER PROTOCOL) Stop: 03/25/17 00:15 Last Admin: 01/25/17 08:47 Dose: 3 mcg/min, 11.43 mls/hr Piperacillin Sod/Tazobactam (Sod 4.5 gm/ Sodium Chloride) 100 mls @ 100 mls/hr IV Q8HR [facility] Stop: 03/25/17 20:59 Last Admin: 01/28/17 06:21 Dose: 100 mls/hr Potassium Chloride/Dextrose/Sod Cl (D5-0.9ns W/40 Meq Kcl) 1,000 mls @ 50 mls/ hr IV .Q20H [facility] Stop: 03/28/17 06:56 Last Admin: 01/28/17 04:35 Dose: 50 mls/hr Insulin Aspart (Novolog Insulin Sliding Scale) 2 - 12 units SUBQ ACHS LIZY PRN Reason: Protocol Stop: 03/16/17 20:59 Last Admin: 01/27/17 22:59 Dose: Not Given Lorazepam (Ativan) 1 mg IVP Q4HR PRN; Protocol PRN Reason: Seizure Stop: 03/15/17 09:07 Last Admin: 01/23/17 15:05 Dose: 1 mg Methylprednisolone Sodium Succinate (Solu-Medrol) 20 mg IVP Q12HR [facility] Stop: 03/19/17 15:43 Last Admin: 01/28/17 06:13 Dose: 20 mg Metoclopramide HCl (Reglan) 10 mg IVP Q8HR [facility] Stop: 03/26/17 12:59 Last Admin: 01/28/17 06:16 Dose: Not Given Mineral Oil (Fleet Mineral Oil) 135 ml RC DAILY PRN PRN Reason: CONSTIPATION Stop: 03/13/17 12:59 Last Admin: 01/14/17 10:49 Dose: 135 ml Mineral Oil (Mineral Oil 30 Ml) 30 ml NG Q6HR LIZY Stop: 03/15/17 11:59 Last Admin: 01/28/17 00:42 Dose: Not Given Miscellaneous (Vte Chemical Prophylaxis Screen/ Admission) 1 ea [facility] PRN PRN PRN Reason: PROTOCOL Stop: 03/08/17 11:10 Miscellaneous (Probiotic Screen) 1 ea MC PRN PRN PRN Reason: PROTOCOL Stop: 03/13/17 13:54 Morphine Sulfate (Morphine) 2 mg IM Q4HR PRN PRN Reason: Pain (Moderate) Stop: 03/24/17 17:05 Ondansetron HCl (Zofran) 4 mg IV UD PRN PRN Reason: Nausea / Vomiting Stop: 03/24/17 11:30 Polyethylene Glycol (Miralax) 17 gm PO BID LIZY Stop: 03/14/17 16:59 Last Admin: 01/26/17 17:05 Dose: Not Given Potassium Chloride (Klor-Con) 20 meq PO DAILY LIZY Stop: 03/08/17 08:59 Last Admin: 01/27/17 14:00 Dose: Not Given General: Alert, No acute distress HEENT: Atraumatic, PERRLA, EOMI Neck: Supple Cardiovascular: Regular rate, Normal S1, Normal S2 Lungs: Other (decreased breath sounds) Abdomen: Bowel sounds, Distended, Other (non tender, no guarding, no rebound) Extremities: no Clubbing, no Cyanosis, no Edema - Procedures Procedures: Procedures Procedure Code Date BYPASS ILEUM TO CUTANEOUS, OPEN APPROACH [id number] 01/06/17 REMOVAL OF COLON 29002 01/06/17 REMOVAL OF GALLBLADDER 90023 01/06/17 RESECTION OF GALLBLADDER, OPEN APPROACH [id number] 01/06/17 RESECTION OF LARGE INTESTINE, OPEN APPROACH 4MPF2DS 01/06/17 RESPIRATORY VENTILATION, 24-96 CONSECUTIVE HOURS [id number] 01/06/17 Assessment/Plan - Problem List Patient Problems: All Active Problems Constipation (Acute) K59.00 Dementia (Acute) F03.90 Facial twitching (Acute) G51.4 Hypocalcemia (Acute) E83.51 Hypokalemia (Acute) E87.6 Hypomagnesemia (Acute) E83.42 Hypophosphatemia (Acute) E83.39 Ileus (Acute) K56.7 Leukocytosis (Acute) D72.829 Multiple sclerosis (Acute) G35 Seizure disorder (Acute) G40.909 Sinus bradycardia (Acute) R00.1 - Assessment Assessment: S/P Acute respiratory failure s/p extubation ... chest xray this AM. toxic megacolon s/p total colectomy ... TPN ? hypocalcemia ... will order Calcium supplements Leukocytosis ... will continue IV antibiotics per ID. Electrolyte imbalance ... will continue to monitor daily and correct as needed. CVA per MRI head ... management per Dr. Franklin. patient on Heparin drip. for carotid duplex. MS acute exacerbation ... stable. on low dose steroids. hypomagnesemia ... will order Mg supplements hypokalemia ... will add K+ to IV fluids. - Plan Plan: S/P Acute respiratory failure s/p extubation ... chest xray this AM. toxic megacolon s/p total colectomy ... TPN ? hypocalcemia ... will order Calcium supplements Leukocytosis ... will continue IV antibiotics per ID. Electrolyte imbalance ... will continue to monitor daily and correct as needed. CVA per MRI head ... management per Dr. Franklin. patient on Heparin drip. for carotid duplex. MS acute exacerbation ... stable. on low dose steroids. hypomagnesemia ... will order Mg supplements hypokalemia ... will add K+ to IV fluids. Nutritional Asmnt/Malnutr-PDOC - Dietary Evaluation Malnutrition Findings (Please click <Entered> for more info): Nutritional Asmnt/Malnutrition Start: 01/08/17 12: 55 Text: Status: Complete Freq: Document 01/08/17 12:56 GSUN (Rec: 01/08/17 13:16 SOLOMON [id number]) Nutritional Asmnt/Malnutrition Patient General Information Nutritional Screening Consult Diagnosis ALOC, acute MS exacerbation Pertinent Medical Hx/Surgical Hx Dementia, multiple sclerosis, constipation Subjective Information 76 year old male from SNF. RD consult for low Audi. Per RN notes, facial twitching on adm, currently NPO with swallow eval pending. Pt was awake during visit, followed RD with eyes, did not provide any information. Mild wasting to chest noted, loose skin to arms. Current Diet Order/ Nutrition Support NPO Pertinent Medications Vitamin C, Oscal W/Vitamin D, Vitamin B12, D5-0.45ns, Dulcolax, Colace Pertinent Labs 01/08: reviewed. Glucose 148H Nutritional Hx/Data Height 1.85 m Height (Calculated Centimeters) 185.4 Current Weight (lbs) 69.49 kg Weight (Calculated Kilograms) 69.5 Weight (Calculated Grams) 79271.4 [place] Body Weight 184 Weight Status Approriate GI Symptoms Usual diet at home [facility]: pureed, large portion lunch and dinner, 4oz house supplement Skin Integrity/Comment: Audi 12. Pressure area r foot and upper back, abrasion l knee and r leg Estimated Nutritional Goals BEE in Kcals: Using Current wt Calories/Kcals/Kg IBW 184lb/83.6kg with consideration skin integrity and BMI Kcals Calculated 2090-2508kcal (25-30kcal/kg) Protein: Using Current wt Protein Calculated 84-109g (1-1.3g/kg) Fluid: ml 2090-2508ml (1ml/kcal) Nutritional Problem 2. 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 Recommend regular diet, diet texture per swallow eval (pending). SNF order pureed. Expected Outcomes/Goals Expected Outcomes/Goals 1. PO intake to meet at least 75% of estimated nutritional needs.
[2017-01-28 09:13] LABS: ABG SOURCE Arterial; ALLEN TEST YES; BE(B) 1.3 mEq/L (-3.0-3.0); FIO2 35; HCO3 29.9 mEq/L (20.0-26.0); pH 7.46 (7.35-7.45)
[2017-01-28 09:14] LABS: CRITICAL VALUES REPORTED BY SH
--- NOTE | 2017-01-28 09:51 | Diagnostic Imaging Report ---
Exam: Portable initially chest HISTORY: Chest congestion post extubation Portable examination of chest at 0855 hours reviewed. The study compared to prior exam of the the early. The study demonstrates extubation. The NG tube progresses into stomach. Right jugular catheter terminates in superior vena cava. Mediastinal structures midline. There is evidence of left basilar atelectasis small effusion. The heart is prominent. The left lung parenchyma is well aerated. There is evidence for the right hemithorax skin fold follow-up dictation recommended clinically indicated. Multiple metallic wires overlying chest area. The stomach distended with distention of the bowel loops on the diaphragm. Clinical correlation and KUB examination of the abdomen might be helpful. IMPRESSION: Status post extubation Left basilar atelectasis small effusion. Right-side skin fold follow-up exam recommended. Distended bowel loops on the diaphragm KUB of the abdomen is recommended.
--- NOTE | 2017-01-28 10:20 | General Progress Note ---
Subjective - Review of Systems Service Date: 01/28/17 Events since last encounter: labs noted extubated ileostomy drainage 600 cc AFUA minimal incision clean Objective - Results Result Diagrams: 01/28/17 05:00 01/28/17 05:00 Recent Labs: Laboratory Last Values WBC 11.5 Th/cmm (4.8-10.8) H 01/28/17 05:00 RBC 2.98 Mil/cmm (3.80-5.80) L 01/28/17 05:00 Hgb 9.7 gm/dL (12-16) L 01/28/17 05:00 Hct 28.5 % (41.0-60) L 01/28/17 05:00 MCV 95.5 fl (80-99) 01/28/17 05:00 MCH 32.6 pg (27.0-31.0) H 01/28/17 05:00 MCHC Differential 34.2 pg (28.0-36.0) 01/28/17 05:00 RDW 13.5 % (11.5-20.0) 01/28/17 05:00 Plt Count 187 Th/cmm (150-400) 01/28/17 05:00 MPV 7.6 fl 01/28/17 05:00 Neutrophils % 88.5 % (40.0-80.0) H 01/26/17 06:55 Band Neutrophils % 1 % (0-10) 01/28/17 05:00 Lymphocytes % 4.3 % (20.0-50.0) L 01/26/17 06:55 Monocytes % 6.9 % (2.0-10.0) 01/26/17 06:55 Eosinophils % 0.3 % (0.0-5.0) 01/26/17 06:55 Basophils % 0.0 % (0.0-2.0) 01/26/17 06:55 Neutrophils (Manual) 86 % (40-80) H 01/28/17 05:00 Lymphocytes 6 % (20-50) L 01/28/17 05:00 Monocytes 6 % (2-10) 01/28/17 05:00 Eosinophils 1 % (0-5) 01/28/17 05:00 Basophils 0 % (0-3) 01/27/17 04:20 Platelet Estimate ADEQUATE (NORMAL) 01/27/17 04:20 Platelet Morphology NORMAL (NORMAL) 01/27/17 04:20 Anisocytosis 1+ 01/06/17 12:32 RBC Morph Micro Appear NORMAL (NORMAL) 01/27/17 04:20 PT 11.9 SECONDS (9.5-11.5) H 01/23/17 05:40 INR 1.13 (0.5-1.4) 01/23/17 05:40 PTT (Actin FS) 24.1 SECONDS (26.0-38.0) L 01/23/17 05:40 Specimen Source Arterial 01/28/17 09:00 Sample Site Right Radial 01/28/17 09:00 pH 7.46 (7.35-7.45) H 01/28/17 09:00 pCO2 35.0 mmHg (35.0-45.0) 01/28/17 09:00 pO2 73.0 mmHg (80.0-100.0) L 01/28/17 09:00 HCO3 29.9 mEq/L (20.0-26.0) H 01/28/17 09:00 Base Excess 1.3 mEq/L (-3.0-3.0) 01/28/17 09:00 O2 Saturation 95.0 % (92.0-100.0) 01/28/17 09:00 Juanjo Test YES 01/28/17 09:00 Vent Rate NA 01/28/17 09:00 Inspired O2 35 01/28/17 09:00 Tidal Volume NA 01/28/17 09:00 PEEP NA 01/28/17 09:00 Pressure (ins/psv/peep) NA 01/28/17 09:00 Critical Value SH 01/28/17 09:00 Sodium 136 mEq/L (136-145) 01/28/17 05:00 Potassium 3.8 mEq/L (3.5-5.1) 01/28/17 05:00 Chloride 106 mEq/L (98-107) 01/28/17 05:00 Carbon Dioxide 28.1 mEq/L (21.0-31.0) 01/28/17 05:00 Anion Gap 5.7 (7.0-16.0) L 01/28/17 05:00 BUN 14 mg/dL (7-25) 01/28/17 05:00 Creatinine 0.5 mg/dL (0.7-1.3) L 01/28/17 05:00 Est GFR ( Amer) TNP 01/28/17 05:00 Est GFR (Non-Af Amer) TNP 01/28/17 05:00 BUN/Creatinine Ratio 28.0 01/28/17 05:00 Glucose 101 mg/dL (70-105) 01/28/17 05:00 POC Glucose 88 MG/DL (70 - 105) 01/28/17 06:48 Hemoglobin A1c % 5.7 % (4.0-6.0) 01/14/17 09:07 Whole Bld Lactic Acid 0.95 mmol/L (0.60-1.99) 01/06/17 10:53 Calcium 8.0 mg/dL (8.6-10.3) L 01/28/17 05:00 Phosphorus 2.2 mg/dL (2.5-5.0) L 01/16/17 05:00 Magnesium 1.9 mg/dL (1.9-2.7) 01/28/17 05:00 Total Bilirubin 1.0 mg/dL (0.3-1.0) 01/25/17 07:05 AST 21 U/L (13-39) 01/25/17 07:05 ALT 22 U/L (7-52) 01/25/17 07:05 Alkaline Phosphatase 42 U/L (34-104) 01/25/17 07:05 Creatine Kinase 52 U/L (30-223) 01/06/17 10:50 B-Natriuretic Peptide 189.0 pg/mL (5.0-100.0) H 01/18/17 05:37 Total Protein 4.7 gm/dL (6.0-8.3) L 01/25/17 07:05 Albumin 2.7 gm/dL (4.2-5.5) L 01/25/17 07:05 Globulin 2.0 gm/dL 01/25/17 07:05 Albumin/Globulin Ratio 1.4 (1.0-1.8) 01/25/17 07:05 Triglycerides 343 mg/dL (<150) H 01/11/17 09:15 Cholesterol 163 mg/dL (<200) 01/11/17 09:15 LDL Cholesterol Direct 82 mg/dL (75-193) 01/11/17 09:15 HDL Cholesterol 46 mg/dL (23-92) 01/11/17 09:15 TSH 2.29 uIU/ml (0.34-5.60) 01/25/17 07:05 PTH Intact 31 pg/mL (15-65) 01/06/17 12:09 Urine Source RAE PORT 01/15/17 14:00 Urine Color YELLOW 01/15/17 14:00 Urine Clarity SLIGHT CLOUDY (CLEAR) 01/15/17 14:00 Urine pH 6.0 (4.6 - 8.0) 01/15/17 14:00 Ur Specific [place] 1.020 (1.005-1.030) 01/15/17 14:00 Urine Protein NEGATIVE mg/dL (NEGATIVE) 01/15/17 14:00 Urine Glucose (UA) >=1000 mg/dL (NEGATIVE) H 01/15/17 14:00 Urine Ketones NEGATIVE mg/dL (NEGATIVE) 01/15/17 14:00 Urine Blood MODERATE (NEGATIVE) H 01/15/17 14:00 Urine Nitrate NEGATIVE (NEGATIVE) 01/15/17 14:00 Urine Bilirubin NEGATIVE (NEGATIVE) 01/15/17 14:00 Urine Urobilinogen 0.2 E.U./dL (0.2 - 1.0) 01/15/17 14:00 Ur Leukocyte Esterase NEGATIVE (NEGATIVE) 01/15/17 14:00 Urine RBC 10-25 /hpf (0-5) H 01/15/17 14:00 Urine WBC 2-5 /hpf (0-5) H 01/15/17 14:00 Ur Epithelial Cells FEW /lpf (FEW) 01/15/17 14:00 Amorphous Sediment MODERATE URATES (NONE SEEN) 01/11/17 16:00 Urine Bacteria FEW /hpf (NONE SEEN) 01/15/17 14:00 Fine Granular Casts 0-2 /lpf (NONE SEEN) H 01/11/17 16:00 Urine Mucus FEW /lpf (FEW) 01/15/17 14:00 Urine Yeast FEW /hpf (NONE SEEN) H 01/11/17 16:00 Gentamicin Peak 11.0 ug/ml (4.0-8.0) H 01/24/17 15:52 Gentamicin Trough 0.9 ug/ml (0.2-2.0) 01/24/17 12:55 Vancomycin Trough 7.3 ug/mL (10-20) L 01/14/17 08:05 Blood Type O POSITIVE 01/23/17 05:40 Antibody Screen NEGATIVE 01/23/17 05:40 - Physical Exam Vitals and I&O: Vital Signs Temp 98.2 F 01/28/17 04:00 Pulse 78 01/28/17 07:15 Resp 22 01/28/17 07:15 BP 92/49 01/28/17 07:00 Pulse Ox 97 01/28/17 07:15 Intake & Output 01/27/17 01/28/17 01/28/17 18:59 06:59 18:59 Intake Total 1362.500 Output Total 1280 1895 Balance -1280 -532.500 Weight (lbs) 53.524 kg 63.503 kg Intake: Intake, IV Amount 1362.500 D5-0.9NS w/40 mEq KCL 1, 1062.500 000 ml @ 50 mls/hr IV . Q20H [facility] Rx#:[id number] Levetiracetam 500mg/100mL 200 500 mg In 100 ml @ 400 mls/hr IV Q12HR@0900,2100 [facility] Rx#:[id number] Piperacillin Sodium/ 100 Tazobact 4.5 gm In Sodium Chloride 0.9% 100 ml @ 100 mls/hr IV Q8HR [facility] Rx #:[id number] Output: Drainage 80 1420 Ileostomy RLQ Abd 1300 Right Lower Abdomen 80 120 Urine 400 475 Other 800 Active Medications: Current Medications Acetaminophen (Tylenol 650mg Supp) 650 mg RC Q4H PRN PRN Reason: Fever > 101 Stop: 03/10/17 13:04 Last Admin: 01/12/17 03:37 Dose: 650 mg Albuterol/Ipratropium (Duoneb Neb) 3 ml HHN Q4HRT [facility] Stop: 03/11/17 14:59 Last Admin: 01/28/17 06:41 Dose: 3 ml Albuterol/Ipratropium (Duoneb Neb) 3 ml HHN Q2HRT PRN PRN Reason: Wheezing Stop: 03/11/17 13:46 Albuterol/Ipratropium (Duoneb Neb) 3 ml HHN [id number] [facility] Stop: 03/25/17 14:59 Artificial Tears (Artificial Tears Ophth Soln) 1 drop EACH EYE BID [facility] Stop: 03/08/17 08:59 Last Admin: 01/27/17 16:44 Dose: 1 drop Ascorbic Acid (Vitamin C) 500 mg PO DAILY LIZY Stop: 03/08/17 08:59 Last Admin: 01/27/17 16:17 Dose: Not Given Aspirin (Aspirin Chewable) 81 mg PO DAILY LIZY Stop: 03/13/17 08:59 Last Admin: 01/27/17 16:17 Dose: Not Given Atorvastatin Calcium (Lipitor) 20 mg PO DAILY LIZY PRN Reason: Protocol Stop: 03/12/17 16:29 Last Admin: 01/27/17 20:50 Dose: Not Given Atropine Sulfate (Atropine Syringe) 1 mg IVP Q4HR PRN PRN Reason: HR BELOW 40 Stop: 03/09/17 08:32 Last Admin: 01/09/17 01:00 Dose: 1 mg Bisacodyl (Dulcolax 10 Mg Supp) 10 mg RC HS [facility] Stop: 03/14/17 20:59 Last Admin: 01/27/17 21:00 Dose: Not Given Budesonide (Pulmicort) 0.5 mg HHN BIDRT [facility] Stop: 03/25/17 18:59 Last Admin: 01/28/17 06:42 Dose: 0.5 mg Calcium/Vitamin D (Oscal W/Vitamin D) 1 tab PO DAILY LIZY Stop: 03/08/17 08:59 Last Admin: 01/27/17 20:50 Dose: Not Given Chlorhexidine Gluconate (Peridex) 15 ml MM 0800,2000 [facility] Stop: 03/24/17 19:59 Last Admin: 01/27/17 21:00 Dose: 15 ml Cyanocobalamin (Vitamin B12) 500 mcg PO DAILY [facility] Stop: 03/08/17 08:59 Last Admin: 01/26/17 09:09 Dose: Not Given Diltiazem HCl (Cardizem) 20 mg IVP Q4HR PRN PRN Reason: FOR HR>130 Stop: 03/13/17 03:53 Last Admin: 01/12/17 20:50 Dose: 20 mg Docusate Sodium (Colace) 100 mg PO DAILY [facility] Stop: 03/08/17 08:59 Last Admin: 01/27/17 20:51 Dose: Not Given Norepinephrine Bitartrate 4 mg (/ Dextrose) 254 mls @ 11.43 mls/hr IV TITR PRN ; Protocol; 3 MCG/MIN PRN Reason: BP MAINTENANCE (PER PROTOCOL) Stop: 03/25/17 00:15 Last Admin: 01/25/17 08:47 Dose: 3 mcg/min, 11.43 mls/hr Piperacillin Sod/Tazobactam (Sod 4.5 gm/ Sodium Chloride) 100 mls @ 100 mls/hr IV Q8HR LIZY Stop: 03/25/17 20:59 Last Admin: 01/28/17 06:21 Dose: 100 mls/hr Potassium Chloride/Dextrose/Sod Cl (D5-0.9ns W/40 Meq Kcl) 1,000 mls @ 50 mls/ hr IV .Q20H LIZY Stop: 03/28/17 06:56 Last Infusion: 01/28/17 06:00 Dose: 50 mls/hr Levetiracetam (Keppra Pb) 500 mg in 100 mls @ 400 mls/hr IV Q12H LIZY Stop: 03/29/17 17:59 Insulin Aspart (Novolog Insulin Sliding Scale) 2 - 12 units SUBQ ACHS LIZY PRN Reason: Protocol Stop: 03/16/17 20:59 Last Admin: 01/27/17 22:59 Dose: Not Given Lorazepam (Ativan) 1 mg IVP Q4HR PRN; Protocol PRN Reason: Seizure Stop: 03/15/17 09:07 Last Admin: 01/23/17 15:05 Dose: 1 mg Methylprednisolone Sodium Succinate (Solu-Medrol) 20 mg IVP Q12HR LIZY Stop: 03/19/17 15:43 Last Admin: 01/28/17 06:13 Dose: 20 mg Metoclopramide HCl (Reglan) 10 mg IVP Q8HR LIZY Stop: 03/26/17 12:59 Last Admin: 01/28/17 06:16 Dose: Not Given Mineral Oil (Fleet Mineral Oil) 135 ml RC DAILY PRN PRN Reason: CONSTIPATION Stop: 03/13/17 12:59 Last Admin: 01/14/17 10:49 Dose: 135 ml Mineral Oil (Mineral Oil 30 Ml) 30 ml NG Q6HR LIZY Stop: 03/15/17 11:59 Last Admin: 01/28/17 00:42 Dose: Not Given Miscellaneous (Vte Chemical Prophylaxis Screen/ Admission) 1 ea MC PRN PRN PRN Reason: PROTOCOL Stop: 03/08/17 11:10 Miscellaneous (Probiotic Screen) 1 ea MC PRN PRN PRN Reason: PROTOCOL Stop: 03/13/17 13:54 Morphine Sulfate (Morphine) 2 mg IM Q4HR PRN PRN Reason: Pain (Moderate) Stop: 03/24/17 17:05 Ondansetron HCl (Zofran) 4 mg IV UD PRN PRN Reason: Nausea / Vomiting Stop: 03/24/17 11:30 Polyethylene Glycol (Miralax) 17 gm PO BID LIZY Stop: 03/14/17 16:59 Last Admin: 01/26/17 17:05 Dose: Not Given Potassium Chloride (Klor-Con) 20 meq PO DAILY [facility] Stop: 03/08/17 08:59 Last Admin: 01/27/17 14:00 Dose: Not Given General: Alert, No acute distress HEENT: Atraumatic, PERRLA, EOMI Neck: Supple Cardiovascular: Regular rate, Normal S1, Normal S2 Lungs: Other (decreased breath sounds) Abdomen: Bowel sounds, Distended, Other (non tender, no guarding, no rebound) Extremities: no Clubbing, no Cyanosis, no Edema - Procedures Procedures: Procedures Procedure Code Date BYPASS ILEUM TO CUTANEOUS, OPEN APPROACH [id number] 01/06/17 REMOVAL OF COLON 97638 01/06/17 REMOVAL OF GALLBLADDER 29744 01/06/17 RESECTION OF GALLBLADDER, OPEN APPROACH [id number] 01/06/17 RESECTION OF LARGE INTESTINE, OPEN APPROACH [id number] 01/06/17 RESPIRATORY VENTILATION, 24-96 CONSECUTIVE HOURS [id number] 01/06/17 Assessment/Plan - Problem List Patient Problems: All Active Problems Constipation (Acute) K59.00 Dementia (Acute) F03.90 Facial twitching (Acute) G51.4 Hypocalcemia (Acute) E83.51 Hypokalemia (Acute) E87.6 Hypomagnesemia (Acute) E83.42 Hypophosphatemia (Acute) E83.39 Ileus (Acute) K56.7 Leukocytosis (Acute) D72.829 Multiple sclerosis (Acute) G35 Seizure disorder (Acute) G40.909 Sinus bradycardia (Acute) R00.1 Nutritional Asmnt/Malnutr-PDOC - Dietary Evaluation Malnutrition Findings (Please click <Entered> for more info): Nutritional Asmnt/Malnutrition Start: 01/08/17 12: 55 Text: Status: Complete Freq: Document 01/08/17 12:56 GSNENA (Rec: 01/08/17 13:16 GSNENA [id number]) Nutritional Asmnt/Malnutrition Patient General Information Nutritional Screening Consult Diagnosis ALOC, acute MS exacerbation Pertinent Medical Hx/Surgical Hx Dementia, multiple sclerosis, constipation Subjective Information 76 year old male from SNF. RD consult for laura Huntley. Per RN notes, facial twitching on adm, currently NPO with swallow eval pending. Pt was awake during visit, followed RD with eyes, did not provide any information. Mild wasting to chest noted, loose skin to arms. Current Diet Order/ Nutrition Support NPO Pertinent Medications Vitamin C, Oscal W/Vitamin D, Vitamin B12, D5-0.45ns, Dulcolax, Colace Pertinent Labs 01/08: reviewed. Glucose 148H Nutritional Hx/Data Height 1.85 m Height (Calculated Centimeters) 185.4 Current Weight (lbs) 69.49 kg Weight (Calculated Kilograms) 69.5 Weight (Calculated Grams) 18159.4 [place] Body Weight 184 Weight Status Approriate GI Symptoms Usual diet at home [facility]: pureed, large portion lunch and dinner, 4oz house supplement Skin Integrity/Comment: Audi 12. Pressure area r foot and upper back, abrasion l knee and r leg Estimated Nutritional Goals BEE in Kcals: Using Current wt Calories/Kcals/Kg IBW 184lb/83.6kg with consideration skin integrity and BMI Kcals Calculated 2090-2508kcal (25-30kcal/kg) Protein: Using Current wt Protein Calculated 84-109g (1-1.3g/kg) Fluid: ml 2090-2508ml (1ml/kcal) Nutritional Problem 2. 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 Recommend regular diet, diet texture per swallow eval (pending). SNF order pureed. Expected Outcomes/Goals Expected Outcomes/Goals 1. PO intake to meet at least 75% of estimated nutritional needs.
[2017-01-28] MEDS: POLYETHYLENE GLYCOL 3350 17 GM PACK PO SCH (10:36)
[2017-01-28] MEDS: Multivitamin w/ Minerals Tab PO SCH (10:36)
[2017-01-28] MEDS: Aspirin 81mg Chewable Tab PO SCH (10:37)
[2017-01-28] MEDS: Chlorhexidine Gluconate 0.12% 15mL Mouthwash MM SCH ×2 (10:37→21:00)
[2017-01-28] MEDS: Polyvinyl Alcohol Ophth Soln 15 mL Bottle EACH EYE SCH (10:38)
[2017-01-28] MEDS: Calcium Carb/Vit D 500 mg/200 U Tab PO SCH (10:38)
[2017-01-28] MEDS: Potassium Chloride 20 mEq ER Tab PO SCH (10:38)
[2017-01-28] MEDS: Atorvastatin Calcium 10 MG TAB PO SCH (15:38)
[2017-01-28] MEDS: Morphine Sulfate 2 mg/mL 1mL Syr IM PRN (21:19)
[2017-01-29] MEDS: INSULIN ASPART SLIDING SCALE 100 UNITS/ML UNIT SUBQ SCH ×5 (01:00→21:30)
[2017-01-29] MEDS: Albuterol/Ipratropium Neb 3 ML AERS HHN SCH ×6 (02:49→22:57)
--- NOTE | 2017-01-29 03:53 | Progress Notes ---
DATE: 01/27/2017 PROBLEM LIST: Persistent respiratory failure, postoperative significant malnourishment with underlying history of possibly Alzheimer. SYMPTOMS: The patient is awake, not in acute distress, is currently breathing okay with SIMV of 4 with pressure support. PHYSICAL EXAMINATION: VITAL SIGNS: The patient's recorded temperature is 96, heart rate is 80s and blood pressure 106/59, saturation 100% on 30%. NECK: Veins not visualized. CHEST: Shows diminished air entry with occasional rhonchi. HEART: Regular. ABDOMEN: Shows surgical scar. Otherwise, unremarkable. EXTREMITIES: Shows no peripheral edema. PERTINENT LABORATORY STUDIES: White count is 13,000, hemoglobin 9.3, ABG is 92. Electrolytes: Potassium is 3.4. ASSESSMENT: The patient clinically tolerated weaning reasonably good. PLANS AND SUGGESTIONS: We will go ahead and continue current treatment and if chest x-ray we will follow through, if that looks okay, may possibly extubate in the next 12-24 hours and go from there. JOB# [id number]
[2017-01-29] MEDS: D5-0.9NS w/40 mEq KCL 1,000 ML IV SCH (04:08)
[2017-01-29] MEDS: Metoclopramide 5 mg/mL 2mL Vial IVP SCH ×3 (04:15→21:35)
[2017-01-29 06:08] LABS: ALB/GLOB RATIO 1.2 (1.0-1.8); ALKALINE PHOSPHATASE 52 U/L (34-104); BUN - UREA NITROGEN 12 mg/dL (7-25); CALCIUM SERUM 7.9 mg/dL (8.6-10.3); CARBON DIOXIDE 25.2 mEq/L (21.0-31.0); CHLORIDE 105 mEq/L (98-107); CREATININE - SERUM 0.5 mg/dL (0.7-1.3); GLUCOSE 129 mg/dL (70-105); POTASSIUM SERUM 4.2 mEq/L (3.5-5.1); SGOT 27 U/L (13-39); SGPT/ALT 61 U/L (7-52); SODIUM SERUM 134 mEq/L (136-145)
[2017-01-29 06:09] LABS: HEMATOCRIT 29.2 % (41.0-60); HEMOGLOBIN 9.8 gm/dL (12-16); MEAN CELL VOLUME 95.8 fl (80-99); MEAN CORPUSCULAR HGB CONC 33.4 pg (28.0-36.0); MEAN PLATELET VOLUME 6.9 fl; PLATELET COUNT 190 Th/cmm (150-400); RED BLOOD COUNT 3.04 Mil/cmm (3.80-5.80); RED CELL DISTRIBUTION WIDTH 13.7 % (11.5-20.0); WHITE BLOOD COUNT 24.1 Th/cmm (4.8-10.8)
[2017-01-29 06:18] LABS: BAND NEUTROPHILE 6 % (0-10); NEUTROPHILS 88 % (40-80); TOTAL CELLS COUNTED 100
[2017-01-29] MEDS: Levetiracetam 500mg/100mL 500 MG/100 ML BAG IV SCH ×2 (06:33→17:48)
[2017-01-29] MEDS: Budesonide 0.5 Mg/2 mL Ud HHN SCH ×2 (07:04→18:47)
--- NOTE | 2017-01-29 08:07 | General Progress Note ---
Subjective - Review of Systems Service Date: 01/29/17 Subjective: S/p total Colectomy with diverting colostomy. Awake, alert, no acute distress. off vasopressor. s/p extubation, WBC's 20K's. for repeat Chest today. Objective - Results Result Diagrams: 01/29/17 05:40 01/29/17 05:40 Recent Labs: Laboratory Last Values WBC 24.1 Th/cmm (4.8-10.8) H* D 01/29/17 05:40 RBC 3.04 Mil/cmm (3.80-5.80) L 01/29/17 05:40 Hgb 9.8 gm/dL (12-16) L 01/29/17 05:40 Hct 29.2 % (41.0-60) L 01/29/17 05:40 MCV 95.8 fl (80-99) 01/29/17 05:40 MCH 32.0 pg (27.0-31.0) H 01/29/17 05:40 MCHC Differential 33.4 pg (28.0-36.0) 01/29/17 05:40 RDW 13.7 % (11.5-20.0) 01/29/17 05:40 Plt Count 190 Th/cmm (150-400) 01/29/17 05:40 MPV 6.9 fl 01/29/17 05:40 Neutrophils % 88.5 % (40.0-80.0) H 01/26/17 06:55 Band Neutrophils % 6 % (0-10) 01/29/17 05:40 Lymphocytes % 4.3 % (20.0-50.0) L 01/26/17 06:55 Monocytes % 6.9 % (2.0-10.0) 01/26/17 06:55 Eosinophils % 0.3 % (0.0-5.0) 01/26/17 06:55 Basophils % 0.0 % (0.0-2.0) 01/26/17 06:55 Neutrophils (Manual) 88 % (40-80) H 01/29/17 05:40 Lymphocytes 2 % (20-50) L 01/29/17 05:40 Monocytes 4 % (2-10) 01/29/17 05:40 Eosinophils 1 % (0-5) 01/28/17 05:00 Basophils 0 % (0-3) 01/27/17 04:20 Platelet Estimate ADEQUATE (NORMAL) 01/27/17 04:20 Platelet Morphology NORMAL (NORMAL) 01/27/17 04:20 Anisocytosis 1+ 01/06/17 12:32 RBC Morph Micro Appear NORMAL (NORMAL) 01/27/17 04:20 PT 11.9 SECONDS (9.5-11.5) H 01/23/17 05:40 INR 1.13 (0.5-1.4) 01/23/17 05:40 PTT (Actin FS) 24.1 SECONDS (26.0-38.0) L 01/23/17 05:40 Specimen Source Arterial 01/28/17 09:00 Sample Site Right Radial 01/28/17 09:00 pH 7.46 (7.35-7.45) H 01/28/17 09:00 pCO2 35.0 mmHg (35.0-45.0) 01/28/17 09:00 pO2 73.0 mmHg (80.0-100.0) L 01/28/17 09:00 HCO3 29.9 mEq/L (20.0-26.0) H 01/28/17 09:00 Base Excess 1.3 mEq/L (-3.0-3.0) 01/28/17 09:00 O2 Saturation 95.0 % (92.0-100.0) 01/28/17 09:00 Juanjo Test YES 01/28/17 09:00 Vent Rate NA 01/28/17 09:00 Inspired O2 35 01/28/17 09:00 Tidal Volume NA 01/28/17 09:00 PEEP NA 01/28/17 09:00 Pressure (ins/psv/peep) NA 01/28/17 09:00 Critical Value SH 01/28/17 09:00 Sodium 134 mEq/L (136-145) L 01/29/17 05:40 Potassium 4.2 mEq/L (3.5-5.1) 01/29/17 05:40 Chloride 105 mEq/L (98-107) 01/29/17 05:40 Carbon Dioxide 25.2 mEq/L (21.0-31.0) 01/29/17 05:40 Anion Gap 8.0 (7.0-16.0) 01/29/17 05:40 BUN 12 mg/dL (7-25) 01/29/17 05:40 Creatinine 0.5 mg/dL (0.7-1.3) L 01/29/17 05:40 Est GFR ( Amer) TNP 01/29/17 05:40 Est GFR (Non-Af Amer) TNP 01/29/17 05:40 BUN/Creatinine Ratio 24.0 01/29/17 05:40 Glucose 129 mg/dL (70-105) H 01/29/17 05:40 POC Glucose 122 MG/DL (70 - 105) H 01/29/17 05:45 Hemoglobin A1c % 5.7 % (4.0-6.0) 01/14/17 09:07 Whole Bld Lactic Acid 0.95 mmol/L (0.60-1.99) 01/06/17 10:53 Calcium 7.9 mg/dL (8.6-10.3) L 01/29/17 05:40 Phosphorus 2.2 mg/dL (2.5-5.0) L 01/16/17 05:00 Magnesium 1.9 mg/dL (1.9-2.7) 01/28/17 05:00 Total Bilirubin 1.0 mg/dL (0.3-1.0) 01/29/17 05:40 AST 27 U/L (13-39) 01/29/17 05:40 ALT 61 U/L (7-52) H 01/29/17 05:40 Alkaline Phosphatase 52 U/L (34-104) 01/29/17 05:40 Creatine Kinase 52 U/L (30-223) 01/06/17 10:50 B-Natriuretic Peptide 189.0 pg/mL (5.0-100.0) H 01/18/17 05:37 Total Protein 4.8 gm/dL (6.0-8.3) L 01/29/17 05:40 Albumin 2.6 gm/dL (4.2-5.5) L 01/29/17 05:40 Globulin 2.2 gm/dL 01/29/17 05:40 Albumin/Globulin Ratio 1.2 (1.0-1.8) 01/29/17 05:40 Triglycerides 343 mg/dL (<150) H 01/11/17 09:15 Cholesterol 163 mg/dL (<200) 01/11/17 09:15 LDL Cholesterol Direct 82 mg/dL (75-193) 01/11/17 09:15 HDL Cholesterol 46 mg/dL (23-92) 01/11/17 09:15 TSH 2.29 uIU/ml (0.34-5.60) 01/25/17 07:05 PTH Intact 31 pg/mL (15-65) 01/06/17 12:09 Urine Source RAE PORT 01/15/17 14:00 Urine Color YELLOW 01/15/17 14:00 Urine Clarity SLIGHT CLOUDY (CLEAR) 01/15/17 14:00 Urine pH 6.0 (4.6 - 8.0) 01/15/17 14:00 Ur Specific [place] 1.020 (1.005-1.030) 01/15/17 14:00 Urine Protein NEGATIVE mg/dL (NEGATIVE) 01/15/17 14:00 Urine Glucose (UA) >=1000 mg/dL (NEGATIVE) H 01/15/17 14:00 Urine Ketones NEGATIVE mg/dL (NEGATIVE) 01/15/17 14:00 Urine Blood MODERATE (NEGATIVE) H 01/15/17 14:00 Urine Nitrate NEGATIVE (NEGATIVE) 01/15/17 14:00 Urine Bilirubin NEGATIVE (NEGATIVE) 01/15/17 14:00 Urine Urobilinogen 0.2 E.U./dL (0.2 - 1.0) 01/15/17 14:00 Ur Leukocyte Esterase NEGATIVE (NEGATIVE) 01/15/17 14:00 Urine RBC 10-25 /hpf (0-5) H 01/15/17 14:00 Urine WBC 2-5 /hpf (0-5) H 01/15/17 14:00 Ur Epithelial Cells FEW /lpf (FEW) 01/15/17 14:00 Amorphous Sediment MODERATE URATES (NONE SEEN) 01/11/17 16:00 Urine Bacteria FEW /hpf (NONE SEEN) 01/15/17 14:00 Fine Granular Casts 0-2 /lpf (NONE SEEN) H 01/11/17 16:00 Urine Mucus FEW /lpf (FEW) 01/15/17 14:00 Urine Yeast FEW /hpf (NONE SEEN) H 01/11/17 16:00 Gentamicin Peak 11.0 ug/ml (4.0-8.0) H 01/24/17 15:52 Gentamicin Trough 0.9 ug/ml (0.2-2.0) 01/24/17 12:55 Vancomycin Trough 7.3 ug/mL (10-20) L 01/14/17 08:05 Blood Type O POSITIVE 01/23/17 05:40 Antibody Screen NEGATIVE 01/23/17 05:40 - Physical Exam Vitals and I&O: Vital Signs Temp 97.2 F 01/29/17 04:00 Pulse 104 01/29/17 07:23 Resp 20 01/29/17 07:23 BP 93/60 01/29/17 06:00 Pulse Ox 100 01/29/17 07:23 Intake & Output 01/28/17 01/29/17 01/29/17 18:59 06:59 18:59 Intake Total 100 1422.500 Output Total 3294 Balance 100 -1871.500 Weight (lbs) 58.967 kg Intake: Intake, IV Amount 100 1422.500 D5-0.9NS w/40 mEq KCL 1, 1022.500 000 ml @ 50 mls/hr IV . Q20H [facility] Rx#:[id number] Levetiracetam 500mg/100mL 200 500 mg In 100 ml @ 400 mls/hr IV Q12H [facility] Rx#: [id number] Piperacillin Sodium/ 100 200 Tazobact 4.5 gm In Sodium Chloride 0.9% 100 ml @ 100 mls/hr IV Q8HR [facility] Rx #:[id number] Output: Drainage 1940 Ileostomy RLQ Abd 1650 Right Lower Abdomen 290 Urine 1354 Active Medications: Current Medications Acetaminophen (Tylenol 650mg Supp) 650 mg RC Q4H PRN PRN Reason: Fever > 101 Stop: 03/10/17 13:04 Last Admin: 01/12/17 03:37 Dose: 650 mg Albuterol/Ipratropium (Duoneb Neb) 3 ml HHN Q4HRT [facility] Stop: 03/11/17 14:59 Last Admin: 01/29/17 07:04 Dose: 3 ml Albuterol/Ipratropium (Duoneb Neb) 3 ml HHN Q2HRT PRN PRN Reason: Wheezing Stop: 03/11/17 13:46 Albuterol/Ipratropium (Duoneb Neb) 3 ml HHN [id number] [facility] Stop: 03/25/17 14:59 Artificial Tears (Artificial Tears Ophth Soln) 1 drop EACH EYE BID LIZY Stop: 03/08/17 08:59 Last Admin: 01/28/17 10:38 Dose: 1 drop Ascorbic Acid (Vitamin C) 500 mg PO DAILY [facility] Stop: 03/08/17 08:59 Last Admin: 01/28/17 10:37 Dose: Not Given Aspirin (Aspirin Chewable) 81 mg PO DAILY [facility]ZY Stop: 03/13/17 08:59 Last Admin: 01/28/17 10:37 Dose: Not Given Atorvastatin Calcium (Lipitor) 20 mg PO DAILY LIZY PRN Reason: Protocol Stop: 03/12/17 16:29 Last Admin: 01/28/17 15:38 Dose: Not Given Atropine Sulfate (Atropine Syringe) 1 mg IVP Q4HR PRN PRN Reason: HR BELOW 40 Stop: 03/09/17 08:32 Last Admin: 01/09/17 01:00 Dose: 1 mg Bisacodyl (Dulcolax 10 Mg Supp) 10 mg RC HS [facility]ZY Stop: 03/14/17 20:59 Last Admin: 01/28/17 21:20 Dose: 10 mg Budesonide (Pulmicort) 0.5 mg HHN BIDRT [facility]ZY Stop: 03/25/17 18:59 Last Admin: 01/29/17 07:04 Dose: 0.5 mg Calcium/Vitamin D (Oscal W/Vitamin D) 1 tab PO DAILY LIZY Stop: 03/08/17 08:59 Last Admin: 01/28/17 10:38 Dose: Not Given Chlorhexidine Gluconate (Peridex) 15 ml MM 0800,1999 [facility] Stop: 03/24/17 19:59 Last Admin: 01/28/17 21:00 Dose: Not Given Cyanocobalamin (Vitamin B12) 500 mcg PO DAILY LIZY Stop: 03/08/17 08:59 Last Admin: 01/28/17 10:36 Dose: Not Given Diltiazem HCl (Cardizem) 20 mg IVP Q4HR PRN PRN Reason: FOR HR>130 Stop: 03/13/17 03:53 Last Admin: 01/12/17 20:50 Dose: 20 mg Docusate Sodium (Colace) 100 mg PO DAILY [facility] Stop: 03/08/17 08:59 Last Admin: 01/28/17 10:38 Dose: Not Given Norepinephrine Bitartrate 4 mg (/ Dextrose) 254 mls @ 11.43 mls/hr IV TITR PRN ; Protocol; 3 MCG/MIN PRN Reason: BP MAINTENANCE (PER PROTOCOL) Stop: 03/25/17 00:15 Last Admin: 01/25/17 08:47 Dose: 3 mcg/min, 11.43 mls/hr Piperacillin Sod/Tazobactam (Sod 4.5 gm/ Sodium Chloride) 100 mls @ 100 mls/hr IV Q8HR [facility] Stop: 03/25/17 20:59 Last Admin: 01/29/17 04:15 Dose: 100 mls/hr Potassium Chloride/Dextrose/Sod Cl (D5-0.9ns W/40 Meq Kcl) 1,000 mls @ 50 mls/ hr IV .Q20H [facility] Stop: 03/28/17 06:56 Last Infusion: 01/29/17 06:00 Dose: 50 mls/hr Levetiracetam (Keppra Pb) 500 mg in 100 mls @ 400 mls/hr IV Q12H [facility] Stop: 03/29/17 17:59 Last Infusion: 01/29/17 06:50 Dose: Infused Calcium Gluconate 1 gm/ Sodium (Chloride) 110 mls @ 100 mls/hr IV X1 ONE Stop: 01/29/17 09:35 Insulin Aspart (Novolog Insulin Sliding Scale) 2 - 12 units SUBQ ACHS LIZY PRN Reason: Protocol Stop: 03/16/17 20:59 Last Admin: 01/29/17 07:00 Dose: Not Given Lorazepam (Ativan) 1 mg IVP Q4HR PRN; Protocol PRN Reason: Seizure Stop: 03/15/17 09:07 Last Admin: 01/23/17 15:05 Dose: 1 mg Methylprednisolone Sodium Succinate (Solu-Medrol) 20 mg IVP Q12HR [facility] Stop: 03/19/17 15:43 Last Admin: 01/28/17 21:20 Dose: 20 mg Metoclopramide HCl (Reglan) 10 mg IVP Q8HR [facility] Stop: 03/26/17 12:59 Last Admin: 01/29/17 04:15 Dose: 10 mg Mineral Oil (Fleet Mineral Oil) 135 ml RC DAILY PRN PRN Reason: CONSTIPATION Stop: 03/13/17 12:59 Last Admin: 01/14/17 10:49 Dose: 135 ml Mineral Oil (Mineral Oil 30 Ml) 30 ml NG Q6HR [facility] Stop: 03/15/17 11:59 Last Admin: 01/29/17 06:00 Dose: Not Given Miscellaneous (Vte Chemical Prophylaxis Screen/ Admission) 1 ea PRN PRN PRN Reason: PROTOCOL Stop: 03/08/17 11:10 Miscellaneous (Probiotic Screen) 1 ea PRN PRN PRN Reason: PROTOCOL Stop: 03/13/17 13:54 Morphine Sulfate (Morphine) 2 mg IM Q4HR PRN PRN Reason: Pain (Moderate) Stop: 03/24/17 17:05 Last Admin: 01/28/17 21:19 Dose: 2 mg Ondansetron HCl (Zofran) 4 mg IV UD PRN PRN Reason: Nausea / Vomiting Stop: 03/24/17 11:30 Polyethylene Glycol (Miralax) 17 gm PO BID LIZY Stop: 03/14/17 16:59 Last Admin: 01/28/17 10:36 Dose: Not Given Potassium Chloride (Klor-Con) 20 meq PO DAILY LIZY Stop: 03/08/17 08:59 Last Admin: 01/28/17 10:38 Dose: Not Given General: Alert, No acute distress HEENT: Atraumatic, PERRLA, EOMI Neck: Supple Cardiovascular: Regular rate, Normal S1, Normal S2 Lungs: Other (decreased breath sounds) Abdomen: Bowel sounds, Distended, Other (non tender, no guarding, no rebound) Extremities: no Clubbing, no Cyanosis, no Edema - Procedures Procedures: Procedures Procedure Code Date BYPASS ILEUM TO CUTANEOUS, OPEN APPROACH [id number] 01/06/17 REMOVAL OF COLON 15527 01/06/17 REMOVAL OF GALLBLADDER 91088 01/06/17 RESECTION OF GALLBLADDER, OPEN APPROACH [id number] 01/06/17 RESECTION OF LARGE INTESTINE, OPEN APPROACH [id number] 01/06/17 RESPIRATORY VENTILATION, 24-96 CONSECUTIVE HOURS [id number] 01/06/17 Assessment/Plan - Problem List Patient Problems: All Active Problems Constipation (Acute) K59.00 Dementia (Acute) F03.90 Facial twitching (Acute) G51.4 Hypocalcemia (Acute) E83.51 Hypokalemia (Acute) E87.6 Hypomagnesemia (Acute) E83.42 Hypophosphatemia (Acute) E83.39 Ileus (Acute) K56.7 Leukocytosis (Acute) D72.829 Multiple sclerosis (Acute) G35 Seizure disorder (Acute) G40.909 Sinus bradycardia (Acute) R00.1 - Assessment Assessment: Atelectasis Left basilar effusion .... chest xray yesterday. continue antibiotics. S/P Acute respiratory failure s/p extubation ... chest xray this AM. toxic megacolon s/p total colectomy ... TPN ? hypocalcemia ... will order Calcium supplements Leukocytosis ... will continue IV antibiotics per ID. Electrolyte imbalance ... will continue to monitor daily and correct as needed. CVA per MRI head ... management per Dr. Franklin. patient on Heparin drip. for carotid duplex. MS acute exacerbation ... stable. on low dose steroids. hypomagnesemia ... will order Mg supplements hypokalemia ... will add K+ to IV fluids. - Plan Plan: S/P Acute respiratory failure s/p extubation ... chest xray this AM. toxic megacolon s/p total colectomy ... TPN ? hypocalcemia ... will order Calcium supplements Leukocytosis ... will continue IV antibiotics per ID. Electrolyte imbalance ... will continue to monitor daily and correct as needed. CVA per MRI head ... management per Dr. Franklin. patient on Heparin drip. for carotid duplex. MS acute exacerbation ... stable. on low dose steroids. hypomagnesemia ... will order Mg supplements hypokalemia ... will add K+ to IV fluids. Nutritional Asmnt/Malnutr-PDOC - Dietary Evaluation Malnutrition Findings (Please click <Entered> for more info): Nutritional Asmnt/Malnutrition Start: 01/08/17 12: 55 Text: Status: Complete Freq: Document 01/08/17 12:56 GSUN (Rec: 01/08/17 13:16 SOLOMON [id number]) Nutritional Asmnt/Malnutrition Patient General Information Nutritional Screening Consult Diagnosis ALOC, acute MS exacerbation Pertinent Medical Hx/Surgical Hx Dementia, multiple sclerosis, constipation Subjective Information 76 year old male from SNF. RD consult for laura Huntley. Per RN notes, facial twitching on adm, currently NPO with swallow eval pending. Pt was awake during visit, followed RD with eyes, did not provide any information. Mild wasting to chest noted, loose skin to arms. Current Diet Order/ Nutrition Support NPO Pertinent Medications Vitamin C, Oscal W/Vitamin D, Vitamin B12, D5-0.45ns, Dulcolax, Colace Pertinent Labs 01/08: reviewed. Glucose 148H Nutritional Hx/Data Height 1.85 m Height (Calculated Centimeters) 185.4 Current Weight (lbs) 69.49 kg Weight (Calculated Kilograms) 69.5 Weight (Calculated Grams) 69155.4 [place] Body Weight 184 Weight Status Approriate GI Symptoms Usual diet at home [facility]: pureed, large portion lunch and dinner, 4oz house supplement Skin Integrity/Comment: Audi 12. Pressure area r foot and upper back, abrasion l knee and r leg Estimated Nutritional Goals BEE in Kcals: Using Current wt Calories/Kcals/Kg IBW 184lb/83.6kg with consideration skin integrity and BMI Kcals Calculated 2090-2508kcal (25-30kcal/kg) Protein: Using Current wt Protein Calculated 84-109g (1-1.3g/kg) Fluid: ml 2090-2508ml (1ml/kcal) Nutritional Problem 2. 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 Recommend regular diet, diet texture per swallow eval (pending). SNF order pureed. Expected Outcomes/Goals Expected Outcomes/Goals 1. PO intake to meet at least 75% of estimated nutritional needs.
[2017-01-29 08:20] LABS: ABG SOURCE Arterial; BE(B) 1.7 mEq/L (-3.0-3.0); HCO3 26.3 mEq/L (20.0-26.0); pH 7.44 (7.35-7.45)
[2017-01-29 08:21] LABS: ALLEN TEST Positive; FIO2 35
[2017-01-29] MEDS ORDERED: Calcium Gluconate 1 GM in Sodium Chloride 0.9% 100 ML IV ONE (08:30)
--- NOTE | 2017-01-29 08:46 | Diagnostic Imaging Report ---
Portable chest x-ray HISTORY: Shortness of breath Compared with prior exam of 01/28/2017, there remains density in the left lower hemithorax with partial obscuration of the left hemidiaphragm. Underlying consolidation and/or atelectasis cannot be excluded. A nasogastric tube has been removed. No other changes. IMPRESSION: 1. No significant change in the cardiopulmonary status as noted above.
--- NOTE | 2017-01-29 09:02 | Infectious Disease Prog Note ---
Infectious Disease Subjective - Review of Systems Service Date: 01/29/17 Subjective: There is no new change, there is no fever. increase in WBC counrt from 11k to 24 k. extubated day before y'day. Infectious Disease Objective - Results Result Diagrams: 01/29/17 05:40 01/29/17 05:40 Recent Labs: Laboratory Last Values WBC 24.1 Th/cmm (4.8-10.8) H* D 01/29/17 05:40 RBC 3.04 Mil/cmm (3.80-5.80) L 01/29/17 05:40 Hgb 9.8 gm/dL (12-16) L 01/29/17 05:40 Hct 29.2 % (41.0-60) L 01/29/17 05:40 MCV 95.8 fl (80-99) 01/29/17 05:40 MCH 32.0 pg (27.0-31.0) H 01/29/17 05:40 MCHC Differential 33.4 pg (28.0-36.0) 01/29/17 05:40 RDW 13.7 % (11.5-20.0) 01/29/17 05:40 Plt Count 190 Th/cmm (150-400) 01/29/17 05:40 MPV 6.9 fl 01/29/17 05:40 Neutrophils % 88.5 % (40.0-80.0) H 01/26/17 06:55 Band Neutrophils % 6 % (0-10) 01/29/17 05:40 Lymphocytes % 4.3 % (20.0-50.0) L 01/26/17 06:55 Monocytes % 6.9 % (2.0-10.0) 01/26/17 06:55 Eosinophils % 0.3 % (0.0-5.0) 01/26/17 06:55 Basophils % 0.0 % (0.0-2.0) 01/26/17 06:55 Neutrophils (Manual) 88 % (40-80) H 01/29/17 05:40 Lymphocytes 2 % (20-50) L 01/29/17 05:40 Monocytes 4 % (2-10) 01/29/17 05:40 Eosinophils 1 % (0-5) 01/28/17 05:00 Basophils 0 % (0-3) 01/27/17 04:20 Platelet Estimate ADEQUATE (NORMAL) 01/27/17 04:20 Platelet Morphology NORMAL (NORMAL) 01/27/17 04:20 Anisocytosis 1+ 01/06/17 12:32 RBC Morph Micro Appear NORMAL (NORMAL) 01/27/17 04:20 PT 11.9 SECONDS (9.5-11.5) H 01/23/17 05:40 INR 1.13 (0.5-1.4) 01/23/17 05:40 PTT (Actin FS) 24.1 SECONDS (26.0-38.0) L 01/23/17 05:40 Specimen Source Arterial 01/29/17 08:08 Sample Site Right Radial 01/29/17 08:08 pH 7.44 (7.35-7.45) 01/29/17 08:08 pCO2 38.0 mmHg (35.0-45.0) 01/29/17 08:08 pO2 83.0 mmHg (80.0-100.0) 01/29/17 08:08 HCO3 26.3 mEq/L (20.0-26.0) H 01/29/17 08:08 Base Excess 1.7 mEq/L (-3.0-3.0) 01/29/17 08:08 O2 Saturation 97.0 % (92.0-100.0) 01/29/17 08:08 Juanjo Test Positive 01/29/17 08:08 Vent Rate NA 01/29/17 08:08 Inspired O2 35 01/29/17 08:08 Tidal Volume NA 01/29/17 08:08 PEEP NA 01/29/17 08:08 Pressure (ins/psv/peep) NA 01/29/17 08:08 Critical Value LZHANG 01/29/17 08:08 Sodium 134 mEq/L (136-145) L 01/29/17 05:40 Potassium 4.2 mEq/L (3.5-5.1) 01/29/17 05:40 Chloride 105 mEq/L (98-107) 01/29/17 05:40 Carbon Dioxide 25.2 mEq/L (21.0-31.0) 01/29/17 05:40 Anion Gap 8.0 (7.0-16.0) 01/29/17 05:40 BUN 12 mg/dL (7-25) 01/29/17 05:40 Creatinine 0.5 mg/dL (0.7-1.3) L 01/29/17 05:40 Est GFR ( Amer) TNP 01/29/17 05:40 Est GFR (Non-Af Amer) TNP 01/29/17 05:40 BUN/Creatinine Ratio 24.0 01/29/17 05:40 Glucose 129 mg/dL (70-105) H 01/29/17 05:40 POC Glucose 122 MG/DL (70 - 105) H 01/29/17 05:45 Hemoglobin A1c % 5.7 % (4.0-6.0) 01/14/17 09:07 Whole Bld Lactic Acid 0.95 mmol/L (0.60-1.99) 01/06/17 10:53 Calcium 7.9 mg/dL (8.6-10.3) L 01/29/17 05:40 Phosphorus 2.2 mg/dL (2.5-5.0) L 01/16/17 05:00 Magnesium 1.9 mg/dL (1.9-2.7) 01/28/17 05:00 Total Bilirubin 1.0 mg/dL (0.3-1.0) 01/29/17 05:40 AST 27 U/L (13-39) 01/29/17 05:40 ALT 61 U/L (7-52) H 01/29/17 05:40 Alkaline Phosphatase 52 U/L (34-104) 01/29/17 05:40 Creatine Kinase 52 U/L (30-223) 01/06/17 10:50 B-Natriuretic Peptide 189.0 pg/mL (5.0-100.0) H 01/18/17 05:37 Total Protein 4.8 gm/dL (6.0-8.3) L 01/29/17 05:40 Albumin 2.6 gm/dL (4.2-5.5) L 01/29/17 05:40 Globulin 2.2 gm/dL 01/29/17 05:40 Albumin/Globulin Ratio 1.2 (1.0-1.8) 01/29/17 05:40 Triglycerides 343 mg/dL (<150) H 01/11/17 09:15 Cholesterol 163 mg/dL (<200) 01/11/17 09:15 LDL Cholesterol Direct 82 mg/dL (75-193) 01/11/17 09:15 HDL Cholesterol 46 mg/dL (23-92) 01/11/17 09:15 TSH 2.29 uIU/ml (0.34-5.60) 01/25/17 07:05 PTH Intact 31 pg/mL (15-65) 01/06/17 12:09 Urine Source RAE PORT 01/15/17 14:00 Urine Color YELLOW 01/15/17 14:00 Urine Clarity SLIGHT CLOUDY (CLEAR) 01/15/17 14:00 Urine pH 6.0 (4.6 - 8.0) 01/15/17 14:00 Ur Specific [place] 1.020 (1.005-1.030) 01/15/17 14:00 Urine Protein NEGATIVE mg/dL (NEGATIVE) 01/15/17 14:00 Urine Glucose (UA) >=1000 mg/dL (NEGATIVE) H 01/15/17 14:00 Urine Ketones NEGATIVE mg/dL (NEGATIVE) 01/15/17 14:00 Urine Blood MODERATE (NEGATIVE) H 01/15/17 14:00 Urine Nitrate NEGATIVE (NEGATIVE) 01/15/17 14:00 Urine Bilirubin NEGATIVE (NEGATIVE) 01/15/17 14:00 Urine Urobilinogen 0.2 E.U./dL (0.2 - 1.0) 01/15/17 14:00 Ur Leukocyte Esterase NEGATIVE (NEGATIVE) 01/15/17 14:00 Urine RBC 10-25 /hpf (0-5) H 01/15/17 14:00 Urine WBC 2-5 /hpf (0-5) H 01/15/17 14:00 Ur Epithelial Cells FEW /lpf (FEW) 01/15/17 14:00 Amorphous Sediment MODERATE URATES (NONE SEEN) 01/11/17 16:00 Urine Bacteria FEW /hpf (NONE SEEN) 01/15/17 14:00 Fine Granular Casts 0-2 /lpf (NONE SEEN) H 01/11/17 16:00 Urine Mucus FEW /lpf (FEW) 01/15/17 14:00 Urine Yeast FEW /hpf (NONE SEEN) H 01/11/17 16:00 Gentamicin Peak 11.0 ug/ml (4.0-8.0) H 01/24/17 15:52 Gentamicin Trough 0.9 ug/ml (0.2-2.0) 01/24/17 12:55 Vancomycin Trough 7.3 ug/mL (10-20) L 01/14/17 08:05 Blood Type O POSITIVE 01/23/17 05:40 Antibody Screen NEGATIVE 01/23/17 05:40 - Physical Exam Vitals and I&O: Vital Signs Temp 97.2 F 01/29/17 04:00 Pulse 104 01/29/17 07:23 Resp 20 01/29/17 08:09 BP 93/60 01/29/17 06:00 Pulse Ox 97 01/29/17 08:09 Intake & Output 01/28/17 01/29/17 01/29/17 18:59 06:59 18:59 Intake Total 100 1422.500 Output Total 3294 Balance 100 -1871.500 Weight (lbs) 58.967 kg Intake: Intake, IV Amount 100 1422.500 D5-0.9NS w/40 mEq KCL 1, 1022.500 000 ml @ 50 mls/hr IV . Q20H [facility] Rx#:[id number] Levetiracetam 500mg/100mL 200 500 mg In 100 ml @ 400 mls/hr IV Q12H [facility] Rx#: [id number] Piperacillin Sodium/ 100 200 Tazobact 4.5 gm In Sodium Chloride 0.9% 100 ml @ 100 mls/hr IV Q8HR [facility] Rx #:[id number] Output: Drainage 1940 Ileostomy RLQ Abd 1650 Right Lower Abdomen 290 Urine 1354 Active Medications: Current Medications Acetaminophen (Tylenol 650mg Supp) 650 mg RC Q4H PRN PRN Reason: Fever > 101 Stop: 03/10/17 13:04 Last Admin: 01/12/17 03:37 Dose: 650 mg Albuterol/Ipratropium (Duoneb Neb) 3 ml HHN Q4HRT [facility] Stop: 03/11/17 14:59 Last Admin: 01/29/17 07:04 Dose: 3 ml Albuterol/Ipratropium (Duoneb Neb) 3 ml HHN Q2HRT PRN PRN Reason: Wheezing Stop: 03/11/17 13:46 Albuterol/Ipratropium (Duoneb Neb) 3 ml HHN [id number] [facility] Stop: 03/25/17 14:59 Artificial Tears (Artificial Tears Ophth Soln) 1 drop EACH EYE BID [facility] Stop: 03/08/17 08:59 Last Admin: 01/28/17 10:38 Dose: 1 drop Ascorbic Acid (Vitamin C) 500 mg PO DAILY [facility] Stop: 03/08/17 08:59 Last Admin: 01/28/17 10:37 Dose: Not Given Aspirin (Aspirin Chewable) 81 mg PO DAILY [facility] Stop: 03/13/17 08:59 Last Admin: 01/28/17 10:37 Dose: Not Given Atorvastatin Calcium (Lipitor) 20 mg PO DAILY LIZY PRN Reason: Protocol Stop: 03/12/17 16:29 Last Admin: 01/28/17 15:38 Dose: Not Given Atropine Sulfate (Atropine Syringe) 1 mg IVP Q4HR PRN PRN Reason: HR BELOW 40 Stop: 03/09/17 08:32 Last Admin: 01/09/17 01:00 Dose: 1 mg Bisacodyl (Dulcolax 10 Mg Supp) 10 mg RC HS [facility] Stop: 03/14/17 20:59 Last Admin: 01/28/17 21:20 Dose: 10 mg Budesonide (Pulmicort) 0.5 mg HHN BIDRT LIZY Stop: 03/25/17 18:59 Last Admin: 01/29/17 07:04 Dose: 0.5 mg Calcium/Vitamin D (Oscal W/Vitamin D) 1 tab PO DAILY [facility] Stop: 03/08/17 08:59 Last Admin: 01/28/17 10:38 Dose: Not Given Chlorhexidine Gluconate (Peridex) 15 ml MM 0800,2000 [facility] Stop: 03/24/17 19:59 Last Admin: 01/28/17 21:00 Dose: Not Given Cyanocobalamin (Vitamin B12) 500 mcg PO DAILY [facility] Stop: 03/08/17 08:59 Last Admin: 01/28/17 10:36 Dose: Not Given Diltiazem HCl (Cardizem) 20 mg IVP Q4HR PRN PRN Reason: FOR HR>130 Stop: 03/13/17 03:53 Last Admin: 01/12/17 20:50 Dose: 20 mg Docusate Sodium (Colace) 100 mg PO DAILY [facility] Stop: 03/08/17 08:59 Last Admin: 01/28/17 10:38 Dose: Not Given Norepinephrine Bitartrate 4 mg (/ Dextrose) 254 mls @ 11.43 mls/hr IV TITR PRN ; Protocol; 3 MCG/MIN PRN Reason: BP MAINTENANCE (PER PROTOCOL) Stop: 03/25/17 00:15 Last Admin: 01/25/17 08:47 Dose: 3 mcg/min, 11.43 mls/hr Piperacillin Sod/Tazobactam (Sod 4.5 gm/ Sodium Chloride) 100 mls @ 100 mls/hr IV Q8HR [facility] Stop: 03/25/17 20:59 Last Admin: 01/29/17 04:15 Dose: 100 mls/hr Potassium Chloride/Dextrose/Sod Cl (D5-0.9ns W/40 Meq Kcl) 1,000 mls @ 50 mls/ hr IV .Q20H [facility] Stop: 03/28/17 06:56 Last Infusion: 01/29/17 06:00 Dose: 50 mls/hr Levetiracetam (Keppra Pb) 500 mg in 100 mls @ 400 mls/hr IV Q12H [facility] Stop: 03/29/17 17:59 Last Infusion: 01/29/17 06:50 Dose: Infused Calcium Gluconate 1 gm/ Sodium (Chloride) 110 mls @ 100 mls/hr IV X1 ONE Stop: 01/29/17 09:35 Insulin Aspart (Novolog Insulin Sliding Scale) 2 - 12 units SUBQ ACHS LIZY PRN Reason: Protocol Stop: 03/16/17 20:59 Last Admin: 01/29/17 07:00 Dose: Not Given Metoclopramide HCl (Reglan) 10 mg IVP Q8HR [facility] Stop: 03/26/17 12:59 Last Admin: 01/29/17 04:15 Dose: 10 mg Mineral Oil (Fleet Mineral Oil) 135 ml RC DAILY PRN PRN Reason: CONSTIPATION Stop: 03/13/17 12:59 Last Admin: 01/14/17 10:49 Dose: 135 ml Mineral Oil (Mineral Oil 30 Ml) 30 ml NG Q6HR [facility] Stop: 03/15/17 11:59 Last Admin: 01/29/17 06:00 Dose: Not Given Miscellaneous (Vte Chemical Prophylaxis Screen/ Admission) 1 ea MC PRN PRN PRN Reason: PROTOCOL Stop: 03/08/17 11:10 Miscellaneous (Probiotic Screen) 1 ea MC PRN PRN PRN Reason: PROTOCOL Stop: 03/13/17 13:54 Morphine Sulfate (Morphine) 2 mg IM Q4HR PRN PRN Reason: Pain (Moderate) Stop: 03/24/17 17:05 Last Admin: 01/28/17 21:19 Dose: 2 mg Ondansetron HCl (Zofran) 4 mg IV UD PRN PRN Reason: Nausea / Vomiting Stop: 03/24/17 11:30 Polyethylene Glycol (Miralax) 17 gm PO BID [facility] Stop: 03/14/17 16:59 Last Admin: 01/28/17 10:36 Dose: Not Given Potassium Chloride (Klor-Con) 20 meq PO DAILY [facility] Stop: 03/08/17 08:59 Last Admin: 01/28/17 10:38 Dose: Not Given General: no acute distress HEENT: atraumatic, normocephalic, PERRLA, EOMI, moist mucous membrane Neck: supple, no thyromegaly Cardiovascular: S1S2, regular Lungs: clear to auscultation bilaterally, clear to percussion Abdomen: soft, no tender, no distended Extremities: no cyanosis, no clubbing, no edema Neurological: awake, alert, oriented Skin: intact - Procedures Procedures: Procedures Procedure Code Date BYPASS ILEUM TO CUTANEOUS, OPEN APPROACH [id number] 01/06/17 REMOVAL OF COLON 73449 01/06/17 REMOVAL OF GALLBLADDER 03760 01/06/17 RESECTION OF GALLBLADDER, OPEN APPROACH [id number] 01/06/17 RESECTION OF LARGE INTESTINE, OPEN APPROACH [id number] 01/06/17 RESPIRATORY VENTILATION, 24-96 CONSECUTIVE HOURS [id number] 01/06/17 Infectious Disease Assmt/Plan - Problem List Patient Problems: All Active Problems Constipation (Acute) K59.00 Dementia (Acute) F03.90 Facial twitching (Acute) G51.4 Hypocalcemia (Acute) E83.51 Hypokalemia (Acute) E87.6 Hypomagnesemia (Acute) E83.42 Hypophosphatemia (Acute) E83.39 Ileus (Acute) K56.7 Leukocytosis (Acute) D72.829 Multiple sclerosis (Acute) G35 Seizure disorder (Acute) G40.909 Sinus bradycardia (Acute) R00.1 - Assessment Assessment: 1. Leukocytosis, Steroids. sudden increase, ? Aspiration. 2. Urinary tract infection. treated. 3. Possible common bile duct obstruction distal end, cholelithiasis. 4. Fecal impaction. 5. Supraventricular tachycardia. 6. Multiple sclerosis. 7. Dementia. 8. constipation/ileus. S/p expl lap. and colon resection, LLQ AFUA drain. - Plan Plan: dc steroid. Repeat CBC npw and AM. Osito philip. Nutritional Asmnt/Malnutr-PDOC - Dietary Evaluation Malnutrition Findings (Please click <Entered> for more info): Nutritional Asmnt/Malnutrition Start: 01/08/17 12: 55 Text: Status: Complete Freq: Document 01/08/17 12:56 GSUN (Rec: 01/08/17 13:16 GSUN [id number]) Nutritional Asmnt/Malnutrition Patient General Information Nutritional Screening Consult Diagnosis ALOC, acute MS exacerbation Pertinent Medical Hx/Surgical Hx Dementia, multiple sclerosis, constipation Subjective Information 76 year old male from SNF. RD consult for laura Huntley. Per RN notes, facial twitching on adm, currently NPO with swallow eval pending. Pt was awake during visit, followed RD with eyes, did not provide any information. Mild wasting to chest noted, loose skin to arms. Current Diet Order/ Nutrition Support NPO Pertinent Medications Vitamin C, Oscal W/Vitamin D, Vitamin B12, D5-0.45ns, Dulcolax, Colace Pertinent Labs 01/08: reviewed. Glucose 148H Nutritional Hx/Data Height 1.85 m Height (Calculated Centimeters) 185.4 Current Weight (lbs) 69.49 kg Weight (Calculated Kilograms) 69.5 Weight (Calculated Grams) 44503.4 [place] Body Weight 184 Weight Status Approriate GI Symptoms Usual diet at home [place] [facility]: pureed, large portion lunch and dinner, 4oz house supplement Skin Integrity/Comment: Audi 12. Pressure area r foot and upper back, abrasion l knee and r leg Estimated Nutritional Goals BEE in Kcals: Using Current wt Calories/Kcals/Kg IBW 184lb/83.6kg with consideration skin integrity and BMI Kcals Calculated 2090-2508kcal (25-30kcal/kg) Protein: Using Current wt Protein Calculated 84-109g (1-1.3g/kg) Fluid: ml 2090-2508ml (1ml/kcal) Nutritional Problem 2. 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 Recommend regular diet, diet texture per swallow eval (pending). SNF order pureed. Expected Outcomes/Goals Expected Outcomes/Goals 1. PO intake to meet at least 75% of estimated nutritional needs.
[2017-01-29] MEDS: Chlorhexidine Gluconate 0.12% 15mL Mouthwash MM SCH ×2 (09:21→21:35)
[2017-01-29] MEDS: Aspirin 81mg Chewable Tab PO SCH (09:27)
[2017-01-29] MEDS: POLYETHYLENE GLYCOL 3350 17 GM PACK PO SCH ×2 (09:27→17:50)
[2017-01-29] MEDS: Calcium Carb/Vit D 500 mg/200 U Tab PO SCH (09:27)
[2017-01-29] MEDS: Polyvinyl Alcohol Ophth Soln 15 mL Bottle EACH EYE SCH ×2 (09:27→17:50)
[2017-01-29] MEDS: Atorvastatin Calcium 10 MG TAB PO SCH (09:27)
[2017-01-29] MEDS: Multivitamin w/ Minerals Tab PO SCH (09:28)
[2017-01-29] MEDS: Potassium Chloride 20 mEq ER Tab PO SCH (09:28)
[2017-01-29 09:42] LABS: HEMATOCRIT 31.7 % (41.0-60); HEMOGLOBIN 10.9 gm/dL (12-16); MEAN CORPUSCULAR HEMOGLOBIN 33.2 pg (27.0-31.0); MEAN CORPUSCULAR HGB CONC 34.5 pg (28.0-36.0); NEUTROPHILE ABSOLUTE 24.4 Th/cmm (1.8-8.0); PLATELET COUNT 165 Th/cmm (150-400); RED CELL DISTRIBUTION WIDTH 13.9 % (11.5-20.0)
[2017-01-29 10:09] LABS: BAND NEUTROPHILE 6 % (0-10); NEUTROPHILS 86 % (40-80); TOTAL CELLS COUNTED 100
[2017-01-29 12:24] LABS: WHITE BLOOD COUNT 26.4 Th/cmm (4.8-10.8)
[2017-01-29] MEDS: Morphine Sulfate 2 mg/mL 1mL Syr IM PRN (15:53)
[2017-01-29] MEDS: Lactobacillus Rhamnosus 10 Billion CFU Capsule PO SCH (17:43)
[2017-01-29] MEDS ORDERED: Metoclopramide 5 mg/mL 2mL Vial ONE (21:31)
[2017-01-30] MEDS: Albuterol/Ipratropium Neb 3 ML AERS HHN SCH ×4 (02:56→14:33)
[2017-01-30 05:03] LABS: HEMATOCRIT 28.9 % (41.0-60); HEMOGLOBIN 9.9 gm/dL (12-16); MEAN CELL VOLUME 96.1 fl (80-99); MEAN CORPUSCULAR HEMOGLOBIN 32.9 pg (27.0-31.0); MEAN CORPUSCULAR HGB CONC 34.2 pg (28.0-36.0); MEAN PLATELET VOLUME 7.4 fl; PLATELET COUNT 169 Th/cmm (150-400); RED BLOOD COUNT 3.01 Mil/cmm (3.80-5.80); RED CELL DISTRIBUTION WIDTH 14.1 % (11.5-20.0)
[2017-01-30 05:04] LABS: ALKALINE PHOSPHATASE 56 U/L (34-104); ANION GAP 6.4 (7.0-16.0); BILIRUBIN,TOTAL 1.2 mg/dL (0.3-1.0); BUN - UREA NITROGEN 9 mg/dL (7-25); CARBON DIOXIDE 26.3 mEq/L (21.0-31.0); CHLORIDE 102 mEq/L (98-107); CREATININE - SERUM 0.5 mg/dL (0.7-1.3); GLUCOSE 93 mg/dL (70-105); POTASSIUM SERUM 3.7 mEq/L (3.5-5.1); SGOT 18 U/L (13-39); SGPT/ALT 50 U/L (7-52); SODIUM SERUM 131 mEq/L (136-145)
[2017-01-30 05:06] LABS: WHITE BLOOD COUNT 23.4 Th/cmm (4.8-10.8)
[2017-01-30 06:11] LABS: BAND NEUTROPHILE 4 % (0-10); NEUTROPHILS 94 % (40-80); TOTAL CELLS COUNTED 100
[2017-01-30] MEDS ORDERED: Levetiracetam 500mg/100mL 500 MG/100 ML BAG IV ONE (06:21)
[2017-01-30] MEDS ORDERED: Metoclopramide 5 mg/mL 2mL Vial ONE (06:21)
[2017-01-30] MEDS: D5-0.9NS w/40 mEq KCL 1,000 ML IV SCH (06:22)
[2017-01-30] MEDS: Metoclopramide 5 mg/mL 2mL Vial IVP SCH ×2 (06:29→13:56)
[2017-01-30] MEDS: Levetiracetam 500mg/100mL 500 MG/100 ML BAG IV SCH (06:29)
[2017-01-30] MEDS: INSULIN ASPART SLIDING SCALE 100 UNITS/ML UNIT SUBQ SCH ×2 (06:41→12:42)
[2017-01-30] MEDS: Budesonide 0.5 Mg/2 mL Ud HHN SCH (07:37)
--- NOTE | 2017-01-30 08:23 | Diagnostic Imaging Report ---
CHEST X-RAY: AP view INDICATION: NG tube placement COMPARISON: 01/29/2017 at 8:06 AM FINDINGS: NG tube is seen with tip in the stomach. Right IJ line is stable. No focal consolidation. Left basal increased lung markings are noted. Chronic lung changes are noted. Gas-filled loops of bowel are noted. IMPRESSION: NG tube in the stomach Left basal atelectasis versus less likely infiltrate. Persistent distended loops of bowel, correlate clinically.
--- NOTE | 2017-01-30 08:34 | Diagnostic Imaging Report ---
CHEST X-RAY: AP view INDICATION: Pneumonia COMPARISON: 01/29/2017 FINDINGS: Support devices are stable. Slight increased left basal lung markings are noted. Chronic changes are noted. Persisting gaseous distended loops of bowel are noted. IMPRESSION: Slight increased left basal lung markings favoring atelectatic changes. Underlying infiltrate is less likely. Persistent partially visualized distended loops of bowel.
[2017-01-30] MEDS: POLYETHYLENE GLYCOL 3350 17 GM PACK PO SCH ×2 (09:34→16:00)
[2017-01-30] MEDS: Chlorhexidine Gluconate 0.12% 15mL Mouthwash MM SCH (09:34)
[2017-01-30] MEDS: Calcium Carb/Vit D 500 mg/200 U Tab PO SCH (09:41)
[2017-01-30] MEDS: Aspirin 81mg Chewable Tab PO SCH (09:41)
[2017-01-30] MEDS: Potassium Chloride 20 mEq ER Tab PO SCH (09:41)
[2017-01-30] MEDS: Lactobacillus Rhamnosus 10 Billion CFU Capsule PO SCH (09:41)
[2017-01-30] MEDS: Multivitamin w/ Minerals Tab PO SCH (09:41)
[2017-01-30] MEDS: Atorvastatin Calcium 10 MG TAB PO SCH (09:42)
[2017-01-30] MEDS: Polyvinyl Alcohol Ophth Soln 15 mL Bottle EACH EYE SCH (09:42)
--- NOTE | 2017-01-30 10:17 | General Progress Note ---
Subjective - Review of Systems Service Date: 01/30/17 Events since last encounter: now DNR status Objective - Results Result Diagrams: 01/30/17 04:15 01/30/17 04:15 Recent Labs: Laboratory Last Values WBC 23.4 Th/cmm (4.8-10.8) H* 01/30/17 04:15 RBC 3.01 Mil/cmm (3.80-5.80) L 01/30/17 04:15 Hgb 9.9 gm/dL (12-16) L 01/30/17 04:15 Hct 28.9 % (41.0-60) L 01/30/17 04:15 MCV 96.1 fl (80-99) 01/30/17 04:15 MCH 32.9 pg (27.0-31.0) H 01/30/17 04:15 MCHC Differential 34.2 pg (28.0-36.0) 01/30/17 04:15 RDW 14.1 % (11.5-20.0) 01/30/17 04:15 Plt Count 169 Th/cmm (150-400) 01/30/17 04:15 MPV 7.4 fl 01/30/17 04:15 Neutrophils % 88.5 % (40.0-80.0) H 01/26/17 06:55 Band Neutrophils % 4 % (0-10) 01/30/17 04:15 Lymphocytes % 4.3 % (20.0-50.0) L 01/26/17 06:55 Monocytes % 6.9 % (2.0-10.0) 01/26/17 06:55 Eosinophils % 0.3 % (0.0-5.0) 01/26/17 06:55 Basophils % 0.0 % (0.0-2.0) 01/26/17 06:55 Neutrophils (Manual) 94 % (40-80) H 01/30/17 04:15 Lymphocytes 2 % (20-50) L 01/30/17 04:15 Monocytes 3 % (2-10) 01/29/17 09:34 Eosinophils 1 % (0-5) 01/28/17 05:00 Basophils 0 % (0-3) 01/27/17 04:20 Platelet Estimate ADEQUATE (NORMAL) 01/27/17 04:20 Platelet Morphology NORMAL (NORMAL) 01/27/17 04:20 Anisocytosis 1+ 01/06/17 12:32 RBC Morph Micro Appear NORMAL (NORMAL) 01/27/17 04:20 PT 11.9 SECONDS (9.5-11.5) H 01/23/17 05:40 INR 1.13 (0.5-1.4) 01/23/17 05:40 PTT (Actin FS) 24.1 SECONDS (26.0-38.0) L 01/23/17 05:40 Specimen Source Arterial 01/29/17 08:08 Sample Site Right Radial 01/29/17 08:08 pH 7.44 (7.35-7.45) 01/29/17 08:08 pCO2 38.0 mmHg (35.0-45.0) 01/29/17 08:08 pO2 83.0 mmHg (80.0-100.0) 01/29/17 08:08 HCO3 26.3 mEq/L (20.0-26.0) H 01/29/17 08:08 Base Excess 1.7 mEq/L (-3.0-3.0) 01/29/17 08:08 O2 Saturation 97.0 % (92.0-100.0) 01/29/17 08:08 Juanjo Test Positive 01/29/17 08:08 Vent Rate NA 01/29/17 08:08 Inspired O2 35 01/29/17 08:08 Tidal Volume NA 01/29/17 08:08 PEEP NA 01/29/17 08:08 Pressure (ins/psv/peep) NA 01/29/17 08:08 Critical Value LZHANG 01/29/17 08:08 Sodium 131 mEq/L (136-145) L 01/30/17 04:15 Potassium 3.7 mEq/L (3.5-5.1) 01/30/17 04:15 Chloride 102 mEq/L (98-107) 01/30/17 04:15 Carbon Dioxide 26.3 mEq/L (21.0-31.0) 01/30/17 04:15 Anion Gap 6.4 (7.0-16.0) L 01/30/17 04:15 BUN 9 mg/dL (7-25) 01/30/17 04:15 Creatinine 0.5 mg/dL (0.7-1.3) L 01/30/17 04:15 Est GFR ( Amer) TNP 01/30/17 04:15 Est GFR (Non-Af Amer) TNP 01/30/17 04:15 BUN/Creatinine Ratio 18.0 01/30/17 04:15 Glucose 93 mg/dL (70-105) 01/30/17 04:15 POC Glucose 90 MG/DL (70 - 105) 01/30/17 06:40 Hemoglobin A1c % 5.7 % (4.0-6.0) 01/14/17 09:07 Whole Bld Lactic Acid 0.95 mmol/L (0.60-1.99) 01/06/17 10:53 Calcium 8.0 mg/dL (8.6-10.3) L 01/30/17 04:15 Phosphorus 2.2 mg/dL (2.5-5.0) L 01/16/17 05:00 Magnesium 1.6 mg/dL (1.9-2.7) L 01/30/17 04:15 Total Bilirubin 1.2 mg/dL (0.3-1.0) H 01/30/17 04:15 AST 18 U/L (13-39) 01/30/17 04:15 ALT 50 U/L (7-52) 01/30/17 04:15 Alkaline Phosphatase 56 U/L (34-104) 01/30/17 04:15 Creatine Kinase 52 U/L (30-223) 01/06/17 10:50 B-Natriuretic Peptide 189.0 pg/mL (5.0-100.0) H 01/18/17 05:37 Total Protein 4.9 gm/dL (6.0-8.3) L 01/30/17 04:15 Albumin 2.5 gm/dL (4.2-5.5) L 01/30/17 04:15 Globulin 2.4 gm/dL 01/30/17 04:15 Albumin/Globulin Ratio 1.0 (1.0-1.8) 01/30/17 04:15 Triglycerides 343 mg/dL (<150) H 01/11/17 09:15 Cholesterol 163 mg/dL (<200) 01/11/17 09:15 LDL Cholesterol Direct 82 mg/dL (75-193) 01/11/17 09:15 HDL Cholesterol 46 mg/dL (23-92) 01/11/17 09:15 TSH 2.29 uIU/ml (0.34-5.60) 01/25/17 07:05 PTH Intact 31 pg/mL (15-65) 01/06/17 12:09 Urine Source RAE PORT 01/15/17 14:00 Urine Color YELLOW 01/15/17 14:00 Urine Clarity SLIGHT CLOUDY (CLEAR) 01/15/17 14:00 Urine pH 6.0 (4.6 - 8.0) 01/15/17 14:00 Ur Specific Hunt 1.020 (1.005-1.030) 01/15/17 14:00 Urine Protein NEGATIVE mg/dL (NEGATIVE) 01/15/17 14:00 Urine Glucose (UA) >=1000 mg/dL (NEGATIVE) H 01/15/17 14:00 Urine Ketones NEGATIVE mg/dL (NEGATIVE) 01/15/17 14:00 Urine Blood MODERATE (NEGATIVE) H 01/15/17 14:00 Urine Nitrate NEGATIVE (NEGATIVE) 01/15/17 14:00 Urine Bilirubin NEGATIVE (NEGATIVE) 01/15/17 14:00 Urine Urobilinogen 0.2 E.U./dL (0.2 - 1.0) 01/15/17 14:00 Ur Leukocyte Esterase NEGATIVE (NEGATIVE) 01/15/17 14:00 Urine RBC 10-25 /hpf (0-5) H 01/15/17 14:00 Urine WBC 2-5 /hpf (0-5) H 01/15/17 14:00 Ur Epithelial Cells FEW /lpf (FEW) 01/15/17 14:00 Amorphous Sediment MODERATE URATES (NONE SEEN) 01/11/17 16:00 Urine Bacteria FEW /hpf (NONE SEEN) 01/15/17 14:00 Fine Granular Casts 0-2 /lpf (NONE SEEN) H 01/11/17 16:00 Urine Mucus FEW /lpf (FEW) 01/15/17 14:00 Urine Yeast FEW /hpf (NONE SEEN) H 01/11/17 16:00 Gentamicin Peak 11.0 ug/ml (4.0-8.0) H 01/24/17 15:52 Gentamicin Trough 0.9 ug/ml (0.2-2.0) 01/24/17 12:55 Vancomycin Trough 7.3 ug/mL (10-20) L 01/14/17 08:05 Blood Type O POSITIVE 01/23/17 05:40 Antibody Screen NEGATIVE 01/23/17 05:40 - Physical Exam Vitals and I&O: Vital Signs Temp 98.9 F 01/30/17 04:00 Pulse 105 01/30/17 07:54 Resp 27 01/30/17 09:33 BP 119/58 01/30/17 06:00 Pulse Ox 91 01/30/17 09:33 Intake & Output 01/29/17 01/30/17 01/30/17 18:59 06:59 18:59 Intake Total 310 1086.667 Output Total 1275 Balance 310 -188.333 Weight (lbs) 59.421 kg Intake: Intake, IV Amount 310 1006.667 D5-0.9NS w/40 mEq KCL 1, 906.667 000 ml @ 50 mls/hr IV . Q20H [facility] Rx#:[id number] Levetiracetam 500mg/100mL 100 500 mg In 100 ml @ 400 mls/hr IV Q12H [facility] Rx#: [id number] Piperacillin Sodium/ 100 100 Tazobact 4.5 gm In Sodium Chloride 0.9% 100 ml @ 100 mls/hr IV Q8HR [facility] Rx #:[id number] Tube Feeding 80 Output: Drainage 875 Ileostomy RLQ Abd 75 Right Lower Abdomen 800 Urine 400 Active Medications: Current Medications Acetaminophen (Tylenol 650mg Supp) 650 mg RC Q4H PRN PRN Reason: Fever > 101 Stop: 03/10/17 13:04 Last Admin: 01/12/17 03:37 Dose: 650 mg Albuterol/Ipratropium (Duoneb Neb) 3 ml HHN Q4HRT [facility] Stop: 03/11/17 14:59 Last Admin: 01/30/17 07:37 Dose: 3 ml Albuterol/Ipratropium (Duoneb Neb) 3 ml HHN Q2HRT PRN PRN Reason: Wheezing Stop: 03/11/17 13:46 Albuterol/Ipratropium (Duoneb Neb) 3 ml HHN [id number] [facility] Stop: 03/25/17 14:59 Artificial Tears (Artificial Tears Ophth Soln) 1 drop EACH EYE BID [facility] Stop: 03/08/17 08:59 Last Admin: 01/30/17 09:42 Dose: 1 drop Ascorbic Acid (Vitamin C) 500 mg PO DAILY [facility] Stop: 03/08/17 08:59 Last Admin: 01/30/17 09:41 Dose: 500 mg Aspirin (Aspirin Chewable) 81 mg PO DAILY [facility] Stop: 03/13/17 08:59 Last Admin: 01/30/17 09:41 Dose: 81 mg Atorvastatin Calcium (Lipitor) 20 mg PO DAILY [facility] PRN Reason: Protocol Stop: 03/12/17 16:29 Last Admin: 01/30/17 09:42 Dose: 20 mg Atropine Sulfate (Atropine Syringe) 1 mg IVP Q4HR PRN PRN Reason: HR BELOW 40 Stop: 03/09/17 08:32 Last Admin: 01/09/17 01:00 Dose: 1 mg Bisacodyl (Dulcolax 10 Mg Supp) 10 mg RC HS [facility] Stop: 03/14/17 20:59 Last Admin: 01/28/17 21:20 Dose: 10 mg Budesonide (Pulmicort) 0.5 mg HHN BIDRT [facility] Stop: 03/25/17 18:59 Last Admin: 01/30/17 07:37 Dose: 0.5 mg Calcium/Vitamin D (Oscal W/Vitamin D) 1 tab PO DAILY [facility] Stop: 03/08/17 08:59 Last Admin: 01/30/17 09:41 Dose: 1 tab Chlorhexidine Gluconate (Peridex) 15 ml MM 0800,2000 [facility] Stop: 03/24/17 19:59 Last Admin: 01/30/17 09:34 Dose: Not Given Cyanocobalamin (Vitamin B12) 500 mcg PO DAILY [facility] Stop: 03/08/17 08:59 Last Admin: 01/30/17 09:47 Dose: 500 mcg Diltiazem HCl (Cardizem) 20 mg IVP Q4HR PRN PRN Reason: FOR HR>130 Stop: 03/13/17 03:53 Last Admin: 01/12/17 20:50 Dose: 20 mg Docusate Sodium (Colace) 100 mg PO DAILY [facility] Stop: 03/08/17 08:59 Last Admin: 01/30/17 09:35 Dose: Not Given Norepinephrine Bitartrate 4 mg (/ Dextrose) 254 mls @ 11.43 mls/hr IV TITR PRN ; Protocol; 3 MCG/MIN PRN Reason: BP MAINTENANCE (PER PROTOCOL) Stop: 03/25/17 00:15 Last Admin: 01/25/17 08:47 Dose: 3 mcg/min, 11.43 mls/hr Piperacillin Sod/Tazobactam (Sod 4.5 gm/ Sodium Chloride) 100 mls @ 100 mls/hr IV Q8HR [facility] Stop: 03/25/17 20:59 Last Admin: 01/30/17 06:19 Dose: 100 mls/hr Potassium Chloride/Dextrose/Sod Cl (D5-0.9ns W/40 Meq Kcl) 1,000 mls @ 50 mls/ hr IV .Q20H [facility] Stop: 03/28/17 06:56 Last Admin: 01/30/17 06:22 Dose: 50 mls/hr Levetiracetam (Keppra Pb) 500 mg in 100 mls @ 400 mls/hr IV Q12H [facility] Stop: 03/29/17 17:59 Last Admin: 01/30/17 06:29 Dose: 400 mls/hr Insulin Aspart (Novolog Insulin Sliding Scale) 2 - 12 units SUBQ ACHS [facility] PRN Reason: Protocol Stop: 03/16/17 20:59 Last Admin: 01/30/17 06:41 Dose: Not Given Lactobacillus Rhamnosus (Culturelle) 1 each PO DAILY [facility] Stop: 03/30/17 15:59 Last Admin: 01/30/17 09:41 Dose: 1 each Metoclopramide HCl (Reglan) 10 mg IVP Q8HR [facility] Stop: 03/26/17 12:59 Last Admin: 01/30/17 06:29 Dose: 10 mg Miscellaneous (Vte Chemical Prophylaxis Screen/ Admission) 1 ea MC PRN PRN PRN Reason: PROTOCOL Stop: 03/08/17 11:10 Miscellaneous (Probiotic Screen) 1 ea MC PRN PRN PRN Reason: PROTOCOL Stop: 03/13/17 13:54 Morphine Sulfate (Morphine) 2 mg IM Q4HR PRN PRN Reason: Pain (Moderate) Stop: 03/24/17 17:05 Last Admin: 01/29/17 15:53 Dose: 2 mg Ondansetron HCl (Zofran) 4 mg IV UD PRN PRN Reason: Nausea / Vomiting Stop: 03/24/17 11:30 Polyethylene Glycol (Miralax) 17 gm PO BID [facility] Stop: 03/14/17 16:59 Last Admin: 01/30/17 09:34 Dose: Not Given Potassium Chloride (Klor-Con) 20 meq PO DAILY [facility] Stop: 03/08/17 08:59 Last Admin: 01/30/17 09:41 Dose: 20 meq General: Alert, No acute distress HEENT: Atraumatic, PERRLA, EOMI Neck: Supple Cardiovascular: Regular rate, Normal S1, Normal S2 Lungs: Other (decreased breath sounds) Abdomen: Bowel sounds, Distended, Other (non tender, no guarding, no rebound) Extremities: no Clubbing, no Cyanosis, no Edema - Procedures Procedures: Procedures Procedure Code Date BYPASS ILEUM TO CUTANEOUS, OPEN APPROACH [id number] 01/06/17 REMOVAL OF COLON 38575 01/06/17 REMOVAL OF GALLBLADDER 37606 01/06/17 RESECTION OF GALLBLADDER, OPEN APPROACH [id number] 01/06/17 RESECTION OF LARGE INTESTINE, OPEN APPROACH [id number] 01/06/17 RESPIRATORY VENTILATION, 24-96 CONSECUTIVE HOURS [id number] 01/06/17 Assessment/Plan - Problem List Patient Problems: All Active Problems Constipation (Acute) K59.00 Dementia (Acute) F03.90 Facial twitching (Acute) G51.4 Hypocalcemia (Acute) E83.51 Hypokalemia (Acute) E87.6 Hypomagnesemia (Acute) E83.42 Hypophosphatemia (Acute) E83.39 Ileus (Acute) K56.7 Leukocytosis (Acute) D72.829 Multiple sclerosis (Acute) G35 Seizure disorder (Acute) G40.909 Sinus bradycardia (Acute) R00.1 Nutritional Asmnt/Malnutr-PDOC - Dietary Evaluation Malnutrition Findings (Please click <Entered> for more info): Nutritional Asmnt/Malnutrition Start: 01/08/17 12: 55 Text: Status: Complete Freq: Document 01/08/17 12:56 GSUN (Rec: 01/08/17 13:16 [id number]) Nutritional Asmnt/Malnutrition Patient General Information Nutritional Screening Consult Diagnosis ALOC, acute MS exacerbation Pertinent Medical Hx/Surgical Hx Dementia, multiple sclerosis, constipation Subjective Information 76 year old male from SNF. RD consult for low Audi. Per RN notes, facial twitching on adm, currently NPO with swallow eval pending. Pt was awake during visit, followed RD with eyes, did not provide any information. Mild wasting to chest noted, loose skin to arms. Current Diet Order/ Nutrition Support NPO Pertinent Medications Vitamin C, Oscal W/Vitamin D, Vitamin B12, D5-0.45ns, Dulcolax, Colace Pertinent Labs 01/08: reviewed. Glucose 148H Nutritional Hx/Data Height 1.85 m Height (Calculated Centimeters) 185.4 Current Weight (lbs) 69.49 kg Weight (Calculated Kilograms) 69.5 Weight (Calculated Grams) 56661.4 [place] Body Weight 184 Weight Status Approriate GI Symptoms Usual diet at home [place]: pureed, large portion lunch and dinner, 4oz house supplement Skin Integrity/Comment: Audi 12. Pressure area r foot and upper back, abrasion l knee and r leg Estimated Nutritional Goals BEE in Kcals: Using Current wt Calories/Kcals/Kg IBW 184lb/83.6kg with consideration skin integrity and BMI Kcals Calculated 2090-2508kcal (25-30kcal/kg) Protein: Using Current wt Protein Calculated 84-109g (1-1.3g/kg) Fluid: ml 2090-2508ml (1ml/kcal) Nutritional Problem 2. 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 Recommend regular diet, diet texture per swallow eval (pending). SNF order pureed. Expected Outcomes/Goals Expected Outcomes/Goals 1. PO intake to meet at least 75% of estimated nutritional needs.
--- NOTE | 2017-01-30 12:57 | Progress Notes ---
DATE: 01/28/2017 PROBLEM LIST: 1. Respiratory failure postoperatively. 2. Extubated yesterday, clinically stable, getting FiO2 50% mask as well as 5 liters by nasal cannula. He does not know how much oxygen he is getting. SYMPTOMS: Awake, alert, no respiratory distress, etc. PHYSICAL EXAMINATION: VITAL SIGNS: The patient's saturation is 35%, earlier 97%. NECK: Veins not visualized. CHEST: Shows diminished air entry with occasional rhonchi. HEART: Regular. ABDOMEN: Soft, nontender. LABORATORY DATA: ABG initially on 35% of oxygen is adequate. IMPRESSION: The patient has a stable respiratory status. FiO2 given by mask as well as nasal cannula does not make sense ____ she is getting it. I had a long discussion with RT. His reasoning was totally different. PLANS AND SUGGESTIONS: We will continue aerosolized oxygen 40% for now. See how he does. If he needs, it would be good to put on a BiPAP, etc., and we will follow through blood gasses, etc., tomorrow morning and see what it is and go from there. JOB# [id number]
[2017-01-30] MEDS ORDERED: Morphine Sulfate 2 mg/mL 1mL Syr IVP ONE ×2 (15:25→15:29)
--- NOTE | 2017-02-05 18:11 | Discharge Summary ---
DATE OF DISCHARGE: 01/30/2017 PRELIMINARY DIAGNOSES: 1. Multiple sclerosis acute exacerbation. 2. Altered level of consciousness. 3. Hypokalemia. 4. Hypomagnesemia. 5. Hypophosphatemia. 6. Dementia. 7. Constipation. 8. Sinus bradycardia. 9. Hypocalcemia. 10. Positive pseudomonas in the urine. DISCHARGE DIAGNOSES: 1. Multiple sclerosis acute exacerbation. 2. Altered level of consciousness. 3. Hypokalemia. 4. Hypomagnesemia. 5. Hypophosphatemia. 6. Dementia. 7. Constipation. 8. Sinus bradycardia. 9. Hypocalcemia. 10. Positive pseudomonas in the urine. BRIEF HISTORY OF PRESENT ILLNESS: This is a 76-year-old male who [facility] for intermittent facial twitching and chewing that occurred just prior to admission. The patient has a history of multiple sclerosis, dementia and constipation. While in the ER, the patient was found to have severe electrolyte imbalances with potassium noted at 2.3, calcium of 4.6, phosphorus 1.6, magnesium 1.2. He was given initially IV supplementation in the ER and was subsequently transferred to Med/Surg for further evaluation and treatment. While in the ER, he had some routine lab work, which revealed a white count of 10.1, hemoglobin 12.0, hematocrit of 35.3, platelets 159. His PT/INR was slightly elevated, PT was 12.9, INR 1.23. Sodium was essentially normal, initially potassium was noted to be low, which was repeated and found to be 4.2 upon reevaluation. The patient was subsequently admitted for further evaluation and treatment. HOSPITAL COURSE: The patient was seen and evaluated by Neurology, initially for the altered level of consciousness, had a CT and subsequently MRI of the head, which revealed acute CVA. The patient, as noted above, has a history of multiple sclerosis with acute exacerbation and was started on IV Solu-Medrol while in the hospital. The patient's potassium continued to stay low throughout this hospital course, was given K-binders various times. The patient's magnesium as well as phosphorus was also noted to be low, and also was given multiple IV supplementations. 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 The patient was currently DNR and with discussion with family members, the patient was subsequently transferred to hospice care and was transferred back to the [facility] facility for further treatment. [facility]# [id number]
== END 2017-01-30 16:30 | disposition hospice, home (50) | DRG 853 ==
LOC: ER 10:35 → TELE 12:50 → ICU 01-12 03:52 → TELE 01-14 23:10 → MSI 01-18 14:37 → ICU 01-23 12:02
PROVIDERS: ADMIT Family Medicine; ATTEND Family Medicine
PROC: 0DTE0ZZ Resection of Large Intestine, Open Approach (ICD-10-PCS; principal; 2017-01-23)
PROC: 5A1955Z Respiratory Ventilation, Greater than 96 Consecutive Hours (ICD-10-PCS; 2017-01-23)
PROC: 0D1B0Z4 Bypass Ileum to Cutaneous, Open Approach (ICD-10-PCS; 2017-01-23)
PROC: 0FT40ZZ Resection of Gallbladder, Open Approach (ICD-10-PCS; 2017-01-23)
DX: A41.9 Sepsis, unspecified organism (principal); I63.9 Cerebral infarction, unspecified; J96.00 Acute respiratory failure, unspecified whether with hypoxia or hypercapnia; G35 Multiple sclerosis; G93.41 Metabolic encephalopathy; E44.0 Moderate protein-calorie malnutrition; K59.31 Toxic megacolon; E87.0 Hyperosmolality and hypernatremia; N39.0 Urinary tract infection, site not specified; G82.20 Paraplegia, unspecified; K56.7 Ileus, unspecified; I47.1 Supraventricular tachycardia; J98.11 Atelectasis; E83.42 Hypomagnesemia; E83.39 Other disorders of phosphorus metabolism; E83.51 Hypocalcemia; E87.6 Hypokalemia; Z66 Do not resuscitate; K56.41 Fecal impaction; I49.9 Cardiac arrhythmia, unspecified; G40.909 Epilepsy, unspecified, not intractable, without status epilepticus; R73.9 Hyperglycemia, unspecified; B96.5 Pseudomonas (aeruginosa) (mallei) (pseudomallei) as the cause of diseases classified elsewhere; K80.20 Calculus of gallbladder without cholecystitis without obstruction; N40.0 Benign prostatic hyperplasia without lower urinary tract symptoms; I10 Essential (primary) hypertension; J44.9 Chronic obstructive pulmonary disease, unspecified; G30.9 Alzheimer's disease, unspecified; F02.80 Dementia in other diseases classified elsewhere, unspecified severity, without behavioral disturbance, psychotic disturbance, mood disturbance, and anxiety; Z79.51 Long term (current) use of inhaled steroids; Z79.52 Long term (current) use of systemic steroids
CPT/HCPCS: 36415-UA; 36600-90; 70450-TC; 70498-TC; 71010-TC; 74000-TC; 74250-TC; 74270-TC; 78226-TC; 80048-TC; 80053-TC; 80061-TC; 80170-TC; 80202-TC; 81001-TC; 82550-TC; 82803-TC; 82948-90; 83036-90; 83605; 83735-TC; 83880-TC; 83970-90; 84100-TC; 84443-TC; 85007-TC; 85027-TC; 85610-TC; 85730-TC; 86850-TC; 86900-TC; 86901-TC; 87070; 87086-90; 87230-TC; 88304-TC; 90779; 90799; 93005; 93880-TC; 94002; 94003; 94640; 94660; 94664; 94760; 96372; 99201; A9537; J0282; J0461; J0610; J0696; J1580; J1644; J1815; J1885; J2001; J2060; J2250; J2270; J2543; J2704; J2765; J2920; J2930; J3370; J3475; J3480; J7030; J7040; J7042; J7070; P9047; Q9967; X3401; X4304; X6024; X6436; X6452; Z7502; Z7610; Z7610-TC